=== PATIENT | female | born 1945 | race Hispanic/Latino ===

== ENCOUNTER 2018-05-12 10:45 | Inpatient (IN) | payer MEDICARE ==
--- NOTE | 2018-05-12 11:20 | ED PDOC ---
Arrival/HPI - General Chief Complaint: Shortness Of Breath Time Seen by Provider: 05/12/18 11:02 Historian: Patient, Family - History of Present Illness Narrative History of Present Illness (Text): 05/12/18 11:17 Patient is a 72 yo female past medical history of diabetes, cad, hypertension, presents with son with history of weakness and shortness of breath. Patient reportedly returned from [place] two days ago after complaining of feeling very weak for the past week while she was in [place]. Family states that she arrived two days ago and appeared very weak and appeared to have left leg weakness intermittently. This morning son stated that she was very short of breath and she was brought to the ED. The patient states that she began feeling short of breath while in [place], but it became worse overnight. She denies headache. She denies chest pain. She denies abdominal pain. She denies vomiting. She denies dark or bloody urine or stool. She denies any numbness or weakness to the upper extremities. She denies fevers or chills. She denies falls or syncope. Son states that she has been very unsteady on her feet and has been pale since arriving from [place] two days ago. Son believes she has been noncompliant with her medication. Time/Duration: Prior to Arrival, > week Symptom Onset: Gradual Symptom Course: Worsening Past Medical History - Travel History If Yes, travel location?: [place] - Cardiac Hx Hypertension: Yes - Endocrine/Metabolic Hx Diabetes Mellitus Type 2: Yes - Gastrointestinal Hx Gastroesophageal Reflux: Yes - Psychiatric Hx Anxiety: Yes Hx Substance Use: No - Surgical History Hx Cholecystectomy: Yes Family/Social History Family/Social History: Unknown Family HX Smoking Status: Unknown If Ever Smoked Hx Alcohol Use: No Hx Substance Use: No Allergies/Home Meds Allergies/Adverse Reactions: Allergies No Known Allergies Allergy (Verified 05/12/18 10:54) Home Medications: Home Meds Medication Instructions Recorded Confirmed Unobtainable 05/12/18 05/12/18 Review of Systems - Review of Systems Constitutional: Fatigue Eyes: absent: Vision Changes ENT: absent: Hearing Changes, Sore Throat Respiratory: SOB. absent: Cough, Sputum, Wheezing Cardiovascular: Edema, RAY. absent: Chest Pain, Palpitations, Calf Pain Gastrointestinal: Constipation, Appetite Changes. absent: Abdominal Pain, Diarrhea, Nausea, Vomiting Genitourinary Female: absent: Dysuria, Frequency, Hematuria Musculoskeletal: absent: Back Pain, Neck Pain Skin: absent: Rash Neurological: Dizziness, Gait Changes, Disequilibrium. absent: Headache, Speech Changes, Seizure Endocrine: absent: Diaphoresis, Polyuria Hemo/Lymphatic: absent: Easy Bleeding Psychiatric: absent: Suicidal Ideation Physical Exam Vital Signs Reviewed: Yes Vital Signs Temp Pulse Resp BP Pulse Ox 05/12/18 13:51 98.8 F 120 H 20 129/83 94 L 05/12/18 13:37 119 H 18 127/83 98 05/12/18 13:14 122 H 22 116/81 94 L 05/12/18 13:07 125 H 143/94 H 05/12/18 13:06 156/103 H 05/12/18 12:23 20 05/12/18 12:04 162/98 H 05/12/18 11:22 118 H 20 162/98 H 92 L 05/12/18 10:54 97.8 F 130 H 24 200/120 H 82 L Temperature: Afebrile Blood Pressure: Hypertensive Pulse: Tachycardic Appearance: Positive for: Ill-Appearing Pain Distress: Moderate Mental Status: Positive for: Alert and Oriented X 3 Finger Stick Blood Glucose: 352 - Systems Exam Head: Present: Atraumatic Pupils: Present: PERRL Conjunctiva: No: Injected, Icteric Mouth: Present: Dry Pharnyx: No: ERYTHEMA Nose (Internal): Present: Normal Inspection Neck: Present: Normal Range of Motion, JVD. No: Meningeal Signs, MIDLINE TENDERNESS Respiratory/Chest: Present: Decreased Breath Sounds, Tachypneic Cardiovascular: Present: Murmurs, Tachycardic Abdomen: Present: Distention. No: Tenderness Rectal: No: Gross Blood Back: No: CVA Tenderness Upper Extremity: No: Cyanosis Lower Extremity: Present: Edema. No: CALF TENDERNESS Neurological: Present: Speech Normal, Norm Deep Tendon Reflexes, Memory Normal. No: Motor Func Grossly Intact (generalized weakness to both legs but no drift noted, strength is equal) Skin: Present: Pale Psychiatric: Present: Alert, Oriented x 3 Medical Decision Making ED Course and Treatment: 05/12/18 11:22 Patient on examination is tachycardic, hypetensive, tachypneic. Low oxygen saturations noted patient initiated on nasal cannula oxygen saturations improved to 91%. She denies chest pain or bleeding. She has lower leg edema. She has no pleuritic discomfort. EKG reveals sinus tachycardia rate of 126 with t wave abnormality no recent EKG for comparison. Ddx. nstemi, chf, cad, pneumonia, sepsis, anemia, pulmonary embolism. Given extremely pale appearance will need to exclude active bleeding, consider anticoagulants for ddx of PE or CAD pending results of studies. Treatment plan reviewed with patient and family. At this time no focal weakness, symptoms for several days, not tpa candidate based on initial hx and physical exam. This was reviewed with son. 05/12/18 14:15 CXR consistent with pulmonary edema/chf with pleural effusions. Blood pressure slightly improved from triage BP. She continued to be progressively more tachypneic and hypoxia progressed. ABG obtained and reviewed. Oxygenation increased. Dr. Rivera, cardiology, consulted. Lasix ordered. ICU consulted. Nitroglycerin drip ordered. Patient initiated on Bipap and is tolerating well. On re-exam, more alert, more attentive. Tachycardia slightly improved. Blood pressure improved. Less dyspneic. Will admit to ICU, care turned over to ICU team. Will administer Lovenox. At this time patient not stable for CT angio, CT head. As no neuro deficits will endorse this to admitting team pending re-evaluation. CXR suggestive that CHF is etiology for her dyspnea. - Critical Care Critical Care Minutes: 45 minutes - Lab Interpretations Lab Results: 05/12/18 11:20 05/12/18 11:20 Lab Results 05/12/18 11:35: pCO2 37, pO2 63.0 L, HCO3 21.9, ABG pH 7.38, ABG Total CO2 23.0 , ABG O2 Saturation 94.6 L, ABG Base Excess -2.8 L, ABG Potassium 3.4 L, Sodium 138.0, Chloride 105.0, Glucose 346 H, Lactate 1.3, FiO2 28.0, Arterial Blood Potassium 3.4 L 05/12/18 11:25: Blood Type O POSITIVE, Antibody Screen Negative, BBK History Checked No verified bt 05/12/18 11:20: Sodium 138, Chloride 100, Potassium 4.3, Carbon Dioxide 27, Anion Gap 15, BUN 20, Creatinine 1.0, Est GFR ( Amer) > 60, Est GFR (Non- Af Amer) 54, Random Glucose 362 H*, Calcium 9.1, Magnesium 1.7, Total Bilirubin 0.5, AST 19, ALT 25, Alkaline Phosphatase 171 H, Lactate Dehydrogenase 571, Total Creatine Kinase 78, Troponin I 0.02, Total Protein 6.7, Albumin 3.5, Globulin 3.2, Albumin/Globulin Ratio 1.1 05/12/18 11:20: PT 11.6, INR 1.01, APTT 26.7, D-Dimer, Quantitative 929 H 05/12/18 11:20: WBC 10.6, RBC 5.37, Hgb 13.9, Hct 43.7, MCV 81.4, MCH 25.9, MCHC 31.8, RDW 13.7, Plt Count 260, MPV 11.1 H, Gran % 81.9 H, Lymph % (Auto) 12.8 L, Alexander % (Auto) 3.7, Eos % (Auto) 1.2 L, Baso % (Auto) 0.4, Gran # 8.67 H , Lymph # (Auto) 1.4, Alexander # (Auto) 0.4, Eos # (Auto) 0.1, Baso # (Auto) 0.04 05/12/18 11:20: pO2 39, VBG pH 7.29 L, VBG pCO2 55.0, VBG HCO3 26.4, VBG Total CO2 28.1 H, VBG O2 Sat (Calc) 71.3 H, VBG Base Excess -1.1 L, VBG Potassium 4.1 , Sodium 136.0, Chloride 100.0, Glucose 378 H, Lactate 2.3 H, FiO2 21.0, Venous Blood Potassium 4.1 05/12/18 10:53: POC Glucose (mg/dL) 352 H I have reviewed the lab results: Yes Interpretation: Abnormal lab values - RAD Interpretation Radiology Orders: 05/12/18 11:13 CHEST PORTABLE [RAD] Stat 05/12/18 12:22 ANGIO CHEST PE PROTOCOL [CT] Stat HEAD W/O CONTRAST [CT] Stat 05/12/18 12:26 DUPLEX LOWER EXTRM VEIN BILAT [US] Urgent Endoscopy Specialty Technician: Radiologist - EKG Interpretation EKG Interpretation (Text): 05/12/18 12:28 EKG at 1056 sinus tachycardia rate of 126, t wave abnormality possible lateral ischemia Interpreted by ED Physician: Yes Type: 12 lead EKG - Medication Orders Current Medication Orders: Aspirin (Aspirin Chewable) 81 mg PO DAILY BRIANNE Enoxaparin Sodium (Lovenox) 60 mg SC Q12H [facility]RIANNE PRN Reason: Protocol Last Admin: 05/12/18 13:57 Dose: Famotidine (Pepcid) 20 mg IVP DAILY BRIANNE Furosemide (Lasix) 40 mg IVP BID BRIANNE Nitroglycerin/Dextrose (Nitroglycerin 50 Mg/250 Ml D5w) 50 mg in 250 mls @ 6 mls/hr IV .Q24H PRN; Protocol; 20 MCG/MIN PRN Reason: Titrate per protocol Last Admin: 05/12/18 13:07 Dose: 6 mls/hr eMAR Start Stop Document 05/12/18 13:07 EQ (Rec: 05/12/18 13:07 EQ [id number]) Intravenous Solution Start Date 05/12/18 Start Time 13:07 MAR Pulse and Blood Pressure Document 05/12/18 13:07 EQ (Rec: 05/12/18 13:07 EQ [id number]) Pulse Pulse Rate (60-90 beats/min) 125 Blood Pressure Blood Pressure (100/60-150/90 mm Hg) 143/94 Insulin Human Regular (Humulin R Med) 0 units SC ACHS BRIANNE PRN Reason: Protocol Discontinued Medications Enoxaparin Sodium (Lovenox) 60 mg SC STAT STA PRN Reason: Protocol Stop: 05/12/18 12:50 Last Admin: 05/12/18 13:07 Dose: 60 mg Subcutaneous Administrations Document 05/12/18 13:07 EQ (Rec: 05/12/18 13:07 EQ [id number]) Injection Site MAR Injection Site Left Deltoid Charges for Administration # of Subcutaneous Administrations 1 Furosemide (Lasix) 40 mg IVP ONCE ONE Stop: 05/12/18 11:36 Last Admin: 05/12/18 12:04 Dose: 40 mg MAR Blood Pressure Document 05/12/18 12:04 EQ (Rec: 05/12/18 12:04 EQ [id number]) Blood Pressure Blood Pressure (100/60-150/90 mm Hg) 162/98 IVP Administration Document 05/12/18 12:04 EQ (Rec: 05/12/18 12:04 EQ [id number]) Charges for Administration # of IVP Administrations 1 Furosemide (Lasix) 40 mg IVP DAILY BRIANNE Furosemide (Lasix) 40 mg IVP BID STA Stop: 05/12/18 12:24 Last Admin: 05/12/18 13:06 Dose: 40 mg MAR Blood Pressure Document 05/12/18 13:06 EQ (Rec: 05/12/18 13:07 [id number] Blood Pressure Blood Pressure (100/60-150/90 mm Hg) 156/103 IVP Administration Document 05/12/18 13:06 EQ (Rec: 05/12/18 13:07 [id number]) Charges for Administration # of IVP Administrations 1 Nitroglycerin (Nitro-Bid 2% Oint) 1 ea TOP ONCE STA Stop: 05/12/18 11:36 Last Admin: 05/12/18 12:04 Dose: Nitroglycerin (Nitro-Bid 2% Oint) 1 ea TOP Q6H BRIANNE Last Admin: 05/12/18 13:07 Dose: Nitroglycerin (Nitrostat Sl Tab) 0.4 mg SL STAT STA Stop: 05/12/18 12:56 Last Admin: 05/12/18 13:00 Dose: 0.4 mg Disposition/Present on Arrival - Present on Arrival Any Indicators Present on Arrival: Yes History of DVT/PE: No History of Uncontrolled Diabetes: Yes Urinary Catheter: No History of Decub. Ulcer: No History Surgical Site Infection Following: None - Disposition Have Diagnosis and Disposition been Completed?: Yes Diagnosis: Congestive heart failure, Tachycardia, Hyperglycemia Disposition: HOSPITALIZED Disposition Time: 12:30 Patient Plan: Admission Patient Problems: Current Active Problems Problem Status Onset Congestive heart failure Acute Hyperglycemia Acute Tachycardia Acute Condition: SERIOUS
[2018-05-12 11:35] LABS: VENOUS BLOOD GAS BASE EXCESS -1.1 mmol/L (0.0-2.0); VENOUS BLOOD GAS PO2 39 mm/Hg (30-55); VENOUS BLOOD PH 7.29 (7.32-7.43)
[2018-05-12] MEDS ORDERED: Nitroglycerin 2% Ointment Foilpak UD TOP STA (11:35)
[2018-05-12 11:40] LABS: BASO # 0.04 K/mm3 (0.0-2.0); BASO % 0.4 % (0.0-3.0); EOS # 0.1 (0.0-0.7); EOS % 1.2 % (1.5-5.0); GRAN # 8.67 (1.4-6.5); GRAN % 81.9 % (50.0-68.0); HEMOGLOBIN 13.9 g/dL (12.0-16.0); LYMPH # 1.4 (1.2-3.4); LYMPH % 12.8 % (22.0-35.0); MEAN CELL VOLUME 81.4 fl (80.0-105.0); MEAN CORPUSCULAR HEMOGLOBIN 25.9 pg (25.0-35.0); MEAN CORPUSCULAR HGB CONC 31.8 g/dl (31.0-37.0); MEAN PLATELET VOLUME 11.1 fl (7.0-11.0); MONO # 0.4 (0.1-0.6); MONO % 3.7 % (1.0-6.0); RBC 5.37 10^6/uL (3.5-6.1); RED CELL DISTRIBUTION WIDTH 13.7 % (11.5-14.5); WHITE BLOOD COUNT 10.6 10^3/ul (4.5-11.0)
[2018-05-12 11:42] LABS: ARTERIAL BLOOD GAS HCO3 21.9 mmol/L (21-28); ARTERIAL BLOOD GAS O2 SAT 94.6 % (95-98); ARTERIAL BLOOD GAS PCO2 37 mm/Hg (35-45); ARTERIAL BLOOD GAS PH 7.38 (7.35-7.45)
[2018-05-12 11:56] LABS: TROPONIN I 0.02 ng/mL
[2018-05-12 12:00] LABS: ALB/GLOB RATIO 1.1 (1.1-1.8); ALBUMIN 3.5 g/dL (3.0-4.8); ALT/SGPT 25 U/L (7-56); AST/SGOT 19 U/L (14-36); BLOOD UREA NITROGEN 20 mg/dL (7-21); CALCIUM 9.1 mg/dL (8.4-10.5); GFR NON-AFRICAN AMERICAN 54
[2018-05-12 12:22] LABS: INR 1.01; PARTIAL THROMBOPLASTIN TIME 26.7 Seconds (25.1-36.5); PROTHROMBIN TIME 11.6 SECONDS (9.4-12.5)
[2018-05-12] MEDS ORDERED: Iohexol 350 MG/100 ML VIAL ONE (12:36)
--- NOTE | 2018-05-12 12:44 | RAD ---
Date of service: 05/12/2018 HISTORY: sob COMPARISON: No prior. FINDINGS: LUNGS: Bilateral infiltrates and effusions. PLEURA: No significant pleural effusion identified, no pneumothorax apparent. CARDIOVASCULAR: Cardiomegaly vascular congestion OSSEOUS STRUCTURES: No significant abnormalities. VISUALIZED UPPER ABDOMEN: Normal. OTHER FINDINGS: None. IMPRESSION: Extensive bilateral infiltrates and effusions. Pattern most consistent with pulmonary edema
[2018-05-12] MEDS ORDERED: Nitroglycerin 2% Ointment Foilpak UD TOP SCH (12:45)
[2018-05-12] MEDS ORDERED: Enoxaparin 60 mg Syringe SC STA (12:49)
[2018-05-12] MEDS ORDERED: Nitroglycerin 50mg in D5W 250 ML IV PRN (12:50)
[2018-05-12] MEDS ORDERED: Nitroglycerin 50mg in D5W 50 MG/250 ML BOTTLE IV PRN (12:52)
--- NOTE | 2018-05-12 13:29 | CP.PCM.CON ---
<LesliAlma - Last Filed: 05/12/18 14:28> History of Present Illness - History of Present Illness History of Present Illness: Alma Ballesteros, PGY2, ICU Consult Note for Dr Sherman: CC: shortness of breath for past 2 weeks 72 year old female with PMH CHF, DM, HLD, HTN, came to [facility] for shortness of breath for past 2 weeks. At the time of my exam, patient on bipap, most HPI obtained from son at bedside. Patient had gone to [facility] recently. As per son, patient called from there that she was short of breath, and "not feeling well." Patient then came here, and was having continued SOB in [place] As per son, patient is noncompliant with her diabetes, CHF, CAD medications for past 1.5 years. Yesterday, patient's BP was also high. However, patient refused to come to ED. Today AM, patient was very sob, and therefore decided to come to ED. Reports generalized weakness and right leg weakness for past 3-4 days, deconditioned to walk. Denies fevers, chills, cough, congestion, chest pain, diaphoresis, palpitations, abdominal pain, diarrhea, urinary symptoms. In ED, patient afebrile, hypertensive 200/120, hypoxic SpO2 82% on RA. Labs significant for dimer elevated 929, BNP elevated 5680, troponin 0.02. Patient given nitroglycerin sublingual, lasix 40 mg IVx2, lovenox [address] Rivera at bedside, evaluated patient. ROS limited due to patient's respiratory status. PMH: CHF, HTN, DM, HLD PSH: cholecystectomy NKA FH: Son, CAD with stents SH: Denies smoking, etOH, or drug use. Lives with son and his . Patient stopped taking medications for past 1.5 years. Review of Systems - Review of Systems Systems not reviewed;Unavailable: Other (bipap, respiratory distress) Past Patient History - Past Social History Smoking Status: Unknown If Ever Smoked - CARDIAC Hx Hypertension: Yes - ENDOCRINE/METABOLIC Hx Diabetes Mellitus Type 2: Yes - GASTROINTESTINAL Hx Gastroesophageal Reflux: Yes - PSYCHIATRIC Hx Anxiety: Yes Hx Substance Use: No - SURGICAL HISTORY Hx Cholecystectomy: Yes Meds Allergies/Adverse Reactions: Allergies Allergy/AdvReac Type Severity Reaction Status Date / Time No Known Allergies Allergy Verified 05/12/18 10:54 - Medications Medications: Current Medications Furosemide (Lasix) 40 mg IVP DAILY [facility] Nitroglycerin/Dextrose (Nitroglycerin 50 Mg/250 Ml D5w) 50 mg in 250 mls @ 6 mls/hr IV .Q24H PRN; Protocol; 20 MCG/MIN PRN Reason: Titrate per protocol Last Admin: 05/12/18 13:07 Dose: 6 mls/hr Insulin Human Regular (Humulin R Med) 0 units SC ACHS [facility] PRN Reason: Protocol Nitroglycerin (Nitro-Bid 2% Oint) 1 ea TOP Q6H [facility] Last Admin: 05/12/18 13:07 Dose: Not Given Physical Exam - Constitutional Appears: In Acute Distress, Older Than Stated Age Additional comments: pale appearing female - Head Exam Head Exam: ATRAUMATIC, NORMOCEPHALIC - Eye Exam Eye Exam: EOMI, PERRL. absent: Conjunctival injection, Nystagmus, Scleral icterus Pupil Exam: NORMAL ACCOMODATION, PERRL. absent: Irregular, Miosis, Mydriatic, Unequal - ENT Exam ENT Exam: Mucous Membranes Moist - Neck Exam Neck exam: Positive for: Full Rom - Respiratory Exam Respiratory Exam: absent: Accessory Muscle Use, Rales, Rhonchi, Wheezes Additional comments: bibasilar crackles. on bipap 12/6, R 14 - Cardiovascular Exam Cardiovascular Exam: Tachycardia, +S1, +S2. absent: Systolic Murmur - GI/Abdominal Exam GI & Abdominal Exam: Normal Bowel Sounds, Soft. absent: Distended, Guarding, Mass, Rigid, Tenderness - Extremities Exam Extremities exam: Positive for: calf tenderness, pedal edema (2+ pitting bilaterally) - Back Exam Back exam: NORMAL INSPECTION. absent: CVA tenderness (L), CVA tenderness (R) - Neurological Exam Neurological exam: Alert, Oriented x3 - Psychiatric Exam Psychiatric exam: Anxious - Skin Skin Exam: Dry, Pallor, Warm Results - Vital Signs Recent Vital Signs: Last Vital Signs Temp 97.8 F 05/12/18 10:54 Pulse 125 H 05/12/18 13:07 Resp 20 05/12/18 11:22 BP 143/94 H 05/12/18 13:07 Pulse Ox 92 L 05/12/18 11:22 - Labs Result Diagrams: 05/12/18 11:20 05/12/18 11:20 Labs: Laboratory Results - last 24 hr 05/12/18 05/12/18 05/12/18 10:53 11:20 11:20 WBC 10.6 RBC 5.37 Hgb 13.9 Hct 43.7 MCV 81.4 MCH 25.9 MCHC 31.8 RDW 13.7 Plt Count 260 MPV 11.1 H Gran % 81.9 H Lymph % (Auto) 12.8 L [place] % (Auto) 3.7 Eos % (Auto) 1.2 L Baso % (Auto) 0.4 Gran # 8.67 H Lymph # (Auto) 1.4 [place] # (Auto) 0.4 Eos # (Auto) 0.1 Baso # (Auto) 0.04 PT INR APTT D-Dimer, Quantitative pCO2 pO2 39 HCO3 ABG pH ABG Total CO2 ABG O2 Saturation ABG Base Excess ABG Potassium VBG pH 7.29 L VBG pCO2 55.0 VBG HCO3 26.4 VBG Total CO2 28.1 H VBG O2 Sat (Calc) 71.3 H VBG Base Excess -1.1 L VBG Potassium 4.1 Sodium 136.0 Chloride 100.0 Glucose 378 H Lactate 2.3 H FiO2 21.0 Potassium Carbon Dioxide Anion Gap BUN Creatinine Est GFR ( Amer) Est GFR (Non-Af Amer) POC Glucose (mg/dL) 352 H Random Glucose Calcium Magnesium Total Bilirubin AST ALT Alkaline Phosphatase Lactate Dehydrogenase Total Creatine Kinase Troponin I Total Protein Albumin Globulin Albumin/Globulin Ratio Arterial Blood Potassium Venous Blood Potassium 4.1 Blood Type Antibody Screen BBK History Checked 05/12/18 05/12/18 05/12/18 11:20 11:20 11:25 WBC RBC Hgb Hct MCV MCH MCHC RDW Plt Count MPV Gran % Lymph % (Auto) [place] % (Auto) Eos % (Auto) Baso % (Auto) Gran # Lymph # (Auto) [place] # (Auto) Eos # (Auto) Baso # (Auto) PT 11.6 INR 1.01 APTT 26.7 D-Dimer, Quantitative 929 H pCO2 pO2 HCO3 ABG pH ABG Total CO2 ABG O2 Saturation ABG Base Excess ABG Potassium VBG pH VBG pCO2 VBG HCO3 VBG Total CO2 VBG O2 Sat (Calc) VBG Base Excess VBG Potassium Sodium 138 Chloride 100 Glucose Lactate FiO2 Potassium 4.3 Carbon Dioxide 27 Anion Gap 15 BUN 20 Creatinine 1.0 Est GFR ( Amer) > 60 Est GFR (Non-Af Amer) 54 POC Glucose (mg/dL) Random Glucose 362 H* Calcium 9.1 Magnesium 1.7 Total Bilirubin 0.5 AST 19 ALT 25 Alkaline Phosphatase 171 H Lactate Dehydrogenase 571 Total Creatine Kinase 78 Troponin I 0.02 Total Protein 6.7 Albumin 3.5 Globulin 3.2 Albumin/Globulin Ratio 1.1 Arterial Blood Potassium Venous Blood Potassium Blood Type O POSITIVE Antibody Screen Negative BBK History Checked No verified bt 05/12/18 11:35 WBC RBC Hgb Hct MCV MCH MCHC RDW Plt Count MPV Gran % Lymph % (Auto) [place] % (Auto) Eos % (Auto) Baso % (Auto) Gran # Lymph # (Auto) [place] # (Auto) Eos # (Auto) Baso # (Auto) PT INR APTT D-Dimer, Quantitative pCO2 37 pO2 63.0 L HCO3 21.9 ABG pH 7.38 ABG Total CO2 23.0 ABG O2 Saturation 94.6 L ABG Base Excess -2.8 L ABG Potassium 3.4 L VBG pH VBG pCO2 VBG HCO3 VBG Total CO2 VBG O2 Sat (Calc) VBG Base Excess VBG Potassium Sodium 138.0 Chloride 105.0 Glucose 346 H Lactate 1.3 FiO2 28.0 Potassium Carbon Dioxide Anion Gap BUN Creatinine Est GFR ( Amer) Est GFR (Non-Af Amer) POC Glucose (mg/dL) Random Glucose Calcium Magnesium Total Bilirubin AST ALT Alkaline Phosphatase Lactate Dehydrogenase Total Creatine Kinase Troponin I Total Protein Albumin Globulin Albumin/Globulin Ratio Arterial Blood Potassium 3.4 L Venous Blood Potassium Blood Type Antibody Screen BBK History Checked Assessment & Plan - Assessment and Plan (Free Text) Assessment: 72 year old female with PMH CHF, DM, HLD, HTN, presents for shortness of breath , found to be in hypertensive emergency, CHF exacerbation, hypoxemic respiratory distress: Neuro: AOx4. Right leg weakness for past several days, Motor strength grossly intact on neuro exam, f/u Head CT. Neuro checks, aspiration precautions. Cont to monitor Respiratory: ABG noted: pH 7.38, pCO2 37, HCO3 21.9, pO2 63 on 28% FiO2, noted for hypoxemia likely from underlying CHF exacerbation vs PNA Started on bipap. F/u ABG this afternoon. On Lasix 40 mg IV BID CXR shows extensive b/l infiltrates/effusions likely pulmonary edema. F/u procal, blood culture, urine culture. Consider ID consult. D Dimer elevated 929, f/u CTA. Cardio: Hypertensive in ED: BP 200/120, given nitroglycerin SL in ED. CXR showed extensive b/l pleural effusions Given 40 mg IV Lasix in ED. Dr Rivera at bedside. Started on Lasix 40 mg IV BID, nitro drip for HTN initial trop 0.02, EKG showed sinus tachycardia HR 126. Given Lovenox 60 mg SQ in ED, started on Lovenox 60 mg sq bid. F/u serial trops and EKG. f/u Echocardiogram. GI: NPO. Pepcid. Renal: BUN/Cr 20/1.0. Replace lytes, maintain euvolemia. Monitor for contrast induced nephropathy s/p CT angio. ID: afebrile, no leukocytosis. F/u procal, blood culture, UA, urine culture. CXR showed b/l pleural effusions, may have infiltrates, patient currently denies cough. Monitor Heme: Stable Hgb, plt. Monitor PPX: Pepcid, therapeutic lovenox Case seen and discussed with Dr Sherman. <Mark Sherman - Last Filed: 05/12/18 14:41> Meds - Medications Medications: Current Medications Aspirin (Aspirin Chewable) 81 mg PO DAILY BRIANNE Enoxaparin Sodium (Lovenox) 60 mg SC Q12H BRIANNE PRN Reason: Protocol Last Admin: 05/12/18 13:57 Dose: Not Given Famotidine (Pepcid) 20 mg IVP DAILY BRIANNE Furosemide (Lasix) 40 mg IVP BID BRIANNE Nitroglycerin/Dextrose (Nitroglycerin 50 Mg/250 Ml D5w) 50 mg in 250 mls @ 6 mls/hr IV .Q24H PRN; Protocol; 20 MCG/MIN PRN Reason: Titrate per protocol Last Admin: 05/12/18 13:07 Dose: 6 mls/hr Insulin Human Regular (Humulin R Med) 0 units SC ACHS BRIANNE PRN Reason: Protocol Results - Vital Signs Recent Vital Signs: Last Vital Signs Temp 98.8 F 05/12/18 13:51 Pulse 120 H 05/12/18 13:51 Resp 20 05/12/18 13:51 BP 129/83 05/12/18 13:51 Pulse Ox 94 L 05/12/18 13:51 - Labs Result Diagrams: 05/12/18 11:20 05/12/18 11:20 Labs: Laboratory Results - last 24 hr 05/12/18 13:00 NT-Pro-B Natriuret Pep 5680 H Assessment & Plan - Assessment and Plan (Free Text) Assessment: Patient seen and examined with resident, agree with note with following additions/exceptions: Patient is 72 year old female with PMH CHF, DM, HLD, HTN, hx of non compliance ( off her medications > 1y), presents for shortness of breath, found to be in hypertensive emergency, CHF exacerbation, hypoxemic respiratory distress. Patient in the ER was placed on BIPAP, given Lasix IV, started on Nitro drip. Currently afebrile, SBP improved from 180s to 140s, in NAD, comfortable. Pt's son reports that the patient came back from [facility] on Tue, and she developed SOB 1 week ago. Denies fever, chills, cough, CP. Patients labs, imaging, chart reviewed. CXR c/w pulm edema. Cardiology, Dr Rivera consulted. SOB CAD HTN Urgency Acute decompensated CHF exacerbation Elevated ddimer Sinus Tachycardia Recommend: - supp o2 as needed, duonebs PRN, IS - Panculture, UCx, BCx, UA, check Procal - BP control, IV Nitro drip - Lasix 40mg IV BID - rate control - follow up ECHO - Follow cardiology - CT Angio of Chest, rule out PE - LE duplex - serial cardiac enzymes - GI ppx - DVT ppx, Lovenox - Admit to MICU Critical care time 40 minutes
[2018-05-12] MEDS ORDERED: Enoxaparin 60 mg Syringe SC SCH (13:45)
[2018-05-12 13:57] VITALS: BMI 30.1
[2018-05-12] MEDS ORDERED: Metoprolol Succinate 50 mg XL Tab PO SCH ×2 (15:00→15:03)
[2018-05-12 15:14] LABS: URINE BILIRUBIN NEGATIVE (NEGATIVE); URINE BLOOD SMALL (NEGATIVE); URINE GLUCOSE (UA) >=1000 mg/dL (NEGATIVE); URINE LEUKOCYTE ESTERASE NEGATIVE Leu/uL (NEGATIVE); URINE PROTEIN 100 mg/dL (<30 mg/dL); URINE UROBILINOGEN 0.2 E.U./dL (<1 E.U./dL)
[2018-05-12 15:17] LABS: URINE APPEARANCE CLEAR (CLEAR); URINE COLOR YELLOW (YELLOW)
[2018-05-12 15:20] LABS: URINE BACTERIA FEW (NEG); URINE RBC 0 - 2 /hpf (0-2); URINE WBC 0 - 2 /hpf (0-6)
--- NOTE | 2018-05-12 15:34 | CON ---
DATE: 05/12/2018 CARDIOLOGY CONSULTATION HISTORY: The patient is a 72-year-old woman, who presents with progressive shortness of breath over the past week or two. The patient's symptoms started when she was in [place] and she came back on an airplane. Her past medical history includes diabetes mellitus in which she is noncompliant with medications. There is no previous cardiac history in the past. She denies hypertension, denies previous myocardial infarction. She denies chest pain. SOCIAL HISTORY: The patient does not smoke. REVIEW OF SYSTEMS: Fourteen-point review of systems is reviewed in detail. Progressive dyspnea including dyspnea at rest, pedal edema is noted. No angina. No chest pain. No loss of consciousness. There is swelling in both lower extremities. LABORATORY DATA: Laboratories include an EKG that shows sinus tachycardia with diffuse ST-T flattening. Laboratories include troponin that is negative x1. The glucose is 362. The bicarb is pending. The pulse oximetry is 90 on room air. Hemoglobin is 13.9. IMPRESSION: 1. Acute systolic congestive heart failure. 2. Pedal edema. 3. Diabetes out of control. 4. Hypertension. 5. Dyspnea. PLAN: Given these findings, we will order Lasix 40 IV b.i.d. We will start the patient on heparin or Lovenox. We will obtain a CT scan to rule out a pulmonary embolism. Lei Rivera MD
--- NOTE | 2018-05-12 15:42 | VASCLAB ---
DATE: 05/12/2018 ADDENDUM Preliminary echocardiogram reveals left ventricular hypertrophy with global LV hypokinesis with a dilated left atrium. Ejection fraction could not be obtained due to her marked tachycardia. We will give an additional dosage of Lasix. CT scan is pending as well as Dopplers of the lower extremities. Lei Rivera MD
[2018-05-12 17:25] LABS: ARTERIAL BLOOD GAS O2 CAPACITY 16.4 mL/dl (16-24); ARTERIAL BLOOD GAS O2 CONTENT 16.3 ML/dl (15-23); ARTERIAL BLOOD GAS O2 SAT 99.2 % (95-98); ARTERIAL BLOOD GAS PCO2 45 mm/Hg (35-45); ARTERIAL BLOOD GAS PH 7.37 (7.35-7.45); ARTERIAL BLOOD GAS TCO2 27.4 mmol.L (22-28)
[2018-05-12] MEDS: Insulin Reg-MEDIUM-Coverage SC SCH ×2 (17:39→22:11)
--- NOTE | 2018-05-12 18:14 | US ---
HISTORY: Leg pain and swelling. Evaluate for DVT PHYSICIAN(S): Lei Kirk MD. TECHNIQUE: Duplex sonography and color-flow Doppler with graded compression were used to evaluate the deep venous systems of both lower extremities. FINDINGS: The visualized deep venous systems of both lower extremities are sonographically normal and compressible. Normal wave forms and augmentation are seen. There is no sonographic evidence for deep venous thrombosis in the visualized segments of both lower extremities. IMPRESSION: No sonographic evidence for deep venous thrombosis in the visualized segments of both lower extremities.
[2018-05-12] MEDS ORDERED: Pneumococcal 23-Valent Vaccine IM ONE (18:49)
[2018-05-12] MEDS: Nitroglycerin 2% Ointment Foilpak UD TOP SCH (18:55)
[2018-05-12 19:19] LABS: VENOUS BLOOD GAS BASE EXCESS 1.3 mmol/L (0.0-2.0); VENOUS BLOOD GAS PO2 52 mm/Hg (30-55); VENOUS BLOOD PH 7.37 (7.32-7.43)
--- NOTE | 2018-05-12 21:03 | CARD ---
APPROVED REPORT Date of service: 05/12/2018 EKG Measurement Heart [id number] <Conclusion> Sinus tachycardia T wave abnormality, consider lateral ischemia Abnormal ECG
[2018-05-12] MEDS: Enoxaparin 80 mg Syringe SC SCH (22:59)
--- NOTE | 2018-05-12 23:02 | HP ---
HISTORY OF PRESENT ILLNESS: I was called down to the emergency room to countercheck on her. She is very short of breath. She is 72-year-old white female who came from [place], who was getting sick in [place], they got her back to [facility]. She is extremely short of breath with swollen legs. She has a past medical history of diabetes, CAD, hypertension. Her son is with her. She is very short of breath and swollen. She cannot walk well now because her legs are so heavy. She is very weak and it looks like she is in complete shortness of breath and CHF. She denies any dark or bloody stools or urine. She is very weak. She has a history of diabetes, reflux. She had a cholecystectomy in the past. SOCIAL HISTORY: No smoking, no alcohol, no drugs. ALLERGIES: NO KNOWN DRUG ALLERGIES. MEDICATIONS: They do not have the list of medications with them. REVIEW OF SYSTEMS: No acute vision or hearing changes. She is very tired. There is shortness of breath. No cough, sputum, or wheezing. No edema on the legs or dyspnea on exertion. No chest pain, no palpitations. Has constipation. No abdominal pain, diarrhea, nausea, or vomiting. There are no problems urinating. No back pain or neck pain. No rashes or skin issues. She is dizzy. She cannot weak well. She has dysequilibrium. No sweating. No increase in urination, no easy bleeding. No suicidal thoughts. PHYSICAL EXAMINATION: VITAL SIGNS: She has 97.8 temperature, 130 pulse, 24 respiratory rate with 200/120 blood pressure, and 82% oxygen saturation. GENERAL: She is very ill-appearing, [id number] distress. Alert and oriented x3. HEENT: Head is atraumatic, normocephalic. Extraocular muscles are intact. No erythema to the throat. NECK: Good range of motion. No JVD. LUNGS: Decreased breath sounds bilaterally, poor inspiration from rales when she coughs. HEART: Very tachycardic. ABDOMEN: Soft, nontender, positive bowel sounds. EXTREMITIES: +2-3/4 pitting edema. RECTAL: No gross blood in the rectum in the ER. NEUROLOGIC: Normal speech, but I can tell she is lethargic. Memory is normal. Weak lower extremities from the swelling of both the legs. Alert and oriented x3. LYMPHATICS: Thyroid is midline. No palpable appreciable lymphadenopathy. LABORATORY DATA: Chest x-ray is pending, but I looked at it. The entire chest has both sides wide out. She has 10.6 white count, hemoglobin 13.9, hematocrit 42.7, and platelets are 260. She got 378 glucose. Lactate was high at 2.3. Sodium 138, potassium 4.3. BUN 20, creatinine 1. GFR is 54. Sugar is 362. Calcium is 9.1, magnesium 1.7. Total bili is 0.5, AST is 19, ALT is 25, alk phos 171. Lactate dehydrogenase is 571, total creatinine kinase is 78. Troponin I 0.12. Total protein is 6.7. She will be admitted possibly to the intensive care unit. Awaiting for BNP, I called in Cardiology. She will get IV Lasix. She will be on insulin coverage. I need to get the rest of her medications. I will put her on blood pressure medications. She is here with congestive heart failure, severe; diabetes; hypertension; and weakness. Discussed with the ER doctor. Rick Chisholm DO MTDD
[2018-05-13] MEDS: Nitroglycerin 2% Ointment Foilpak UD TOP SCH ×5 (05:50→23:04)
[2018-05-13 06:15] LABS: HEMOGLOBIN 11.8 g/dL (12.0-16.0); MEAN CORPUSCULAR HEMOGLOBIN 25.2 pg (25.0-35.0); MEAN CORPUSCULAR HGB CONC 31.1 g/dl (31.0-37.0); MEAN PLATELET VOLUME 10.8 fl (7.0-11.0); RBC 4.68 10^6/uL (3.5-6.1); RED CELL DISTRIBUTION WIDTH 13.8 % (11.5-14.5); WHITE BLOOD COUNT 8.3 10^3/ul (4.5-11.0)
[2018-05-13 06:31] LABS: LDL CHOLESTEROL 133 mg/dL (0-129)
[2018-05-13 06:38] LABS: ALB/GLOB RATIO 1.1 (1.1-1.8); ALT/SGPT 21 U/L (7-56); AST/SGOT 21 U/L (14-36); BLOOD UREA NITROGEN 20 mg/dL (7-21); CALCIUM 8.5 mg/dL (8.4-10.5); GFR NON-AFRICAN AMERICAN 54; HDL CHOLESTEROL 30 mg/dL (29-60)
[2018-05-13] MEDS: Insulin Reg-MEDIUM-Coverage SC SCH ×4 (08:30→22:00)
[2018-05-13] MEDS: Enoxaparin 80 mg Syringe SC SCH (09:17)
[2018-05-13] MEDS ORDERED: Heparin25000 units/250ml 1/2NS 25,000 UNITS/250 ML BAG IV PRN (09:42)
--- NOTE | 2018-05-13 09:42 | CT ---
Date of service: 05/12/2018 PROCEDURE: CT Chest with contrast (Pulmonary Angiogram) HISTORY: r/o PE COMPARISON: None available. TECHNIQUE: Axial computed tomography images were obtained of the chest in the pulmonary arterial phase of enhancement. Coronal and sagittal reformatted images were created and reviewed. Intravenous contrast dose: 100 mL Omnipaque 350 Radiation dose: Total exam DLP = 551.74 mGy-cm. This CT exam was performed using one or more of the following dose reduction techniques: Automated exposure control, adjustment of the mA and/or kV according to patient size, and/or use of iterative reconstruction technique. FINDINGS: PULMONARY ARTERIES: Filling defect identified in right upper lobe subsegmental pulmonary artery branch. Additional filling defect seen in right middle lobe subsegmental pulmonary artery branch. No other filling defects are seen elsewhere throughout the pulmonary arterial tree. AORTA: No acute findings. No thoracic aortic aneurysm. LUNGS: Extensive bilateral lower lobe compressive atelectasis. No acute infiltrate. Minimal lingular and right middle lobe subsegmental atelectasis. PLEURAL SPACES: Large bilateral pleural effusion. No pneumothorax. HEART: Normal size. No evidence of RV strain. LYMPH NODES: No lymphadenopathy. BONES, CHEST WALL: Unremarkable. No fracture or destructive lesion OTHER FINDINGS: Unremarkable. IMPRESSION: Several small pulmonary emboli are seen in right upper and middle lobe pulmonary artery branches. No evidence of RV strain. Large bilateral pleural effusion with extensive bilateral lower lobe compressive atelectasis and minimal right middle lobe and lingular subsegmental atelectasis. No additional abnormality. The preliminary findings for this examination were reported by [facility] at 9:54 p.m. on 05/12/2018. There is concurrence of this report with the preliminary findings.
--- NOTE | 2018-05-13 10:12 | CT ---
Date of service: 05/12/2018 PROCEDURE: CT HEAD WITHOUT CONTRAST. HISTORY: history of right leg weakness COMPARISON: None available. TECHNIQUE: Axial computed tomography images were obtained through the head/brain without intravenous contrast. Radiation dose: Total exam DLP = 856.84 mGy-cm. This CT exam was performed using one or more of the following dose reduction techniques: Automated exposure control, adjustment of the mA and/or kV according to patient size, and/or use of iterative reconstruction technique. FINDINGS: HEMORRHAGE: No intracranial hemorrhage. BRAIN: No mass effect or edema. Mild diffuse age-appropriate atrophy. Mild chronic periventricular white matter ischemic change. No evidence of acute infarct. VENTRICLES: Unremarkable. No hydrocephalus. CALVARIUM: Unremarkable. PARANASAL SINUSES: Unremarkable as visualized. No significant inflammatory changes. MASTOID AIR CELLS: Unremarkable as visualized. No inflammatory changes. OTHER FINDINGS: None. IMPRESSION: No intracranial mass, hemorrhage or evidence of acute infarct. Mild age-appropriate atrophy and chronic white matter ischemic change. The preliminary findings for this examination were reported by [facility] at 8:41 p.m. on 05/12/2018. There is concurrence of this report with the preliminary findings.
[2018-05-13] MEDS: Heparin25000 units/250ml 1/2NS 25,000 UNITS/250 ML BAG IV PRN (10:37)
[2018-05-13] MEDS ORDERED: metOLazone 5 MG TAB PO STA (11:19)
--- NOTE | 2018-05-13 12:25 | PN ---
DATE: 05/13/2018 LOCATION: The patient in CCU 129, bed 6. This progress note is being dictated on behalf of Dr. Rivera whom I am covering. REASON FOR FOLLOWUP: Congestive heart failure, bilateral pleural effusion, pulmonary embolism, sinus tachycardia. SUBJECTIVE: The patient lying comfortably in bed without any chest pain. She states shortness of breath is better. Denies palpitation. PHYSICAL EXAMINATION: VITAL SIGNS: Blood pressure 134/79, pulse is about 114 per minute, respirations about 20. The patient is afebrile. HEENT: Head is normocephalic. Eyes: Pupils normal. Conjunctivae normal. NECK: JVP slightly elevated. CARDIOVASCULAR: S1, S2. LUNGS: Marked diminished breath sounds in lower half of both lungs. ABDOMEN: Soft. Bowel sounds normal. EXTREMITIES: No clubbing, no cyanosis. LABORATORY DATA: WBC 8.3, hemoglobin 11.8, hematocrit 37.9, platelet 209. Sodium 138, potassium 3.9, BUN 20, creatinine 1, random sugar 211. AST and ALT normal. Yesterday's first troponin was 0.02, subsequent troponin was 1.07 and 1.37, total protein 5.8, albumin 3, cholesterol 195, LDL 133. Chest CT scan showed several small pulmonary emboli that are seen in the right upper and middle lobe pulmonary artery branches, no evidence of RV strain, large bilateral pleural effusion with extensive bilateral lower lobe compression atelectasis and minimal right middle lobe and lingular subsegmental atelectasis. DIAGNOSES: 1. Acute systolic congestive heart failure. 2. Multiple small pulmonary emboli. 3. Bilateral large pleural effusions. 4. Diabetes mellitus. 5. Hypertension. PLAN: The patient getting aspirin 81 mg daily, starting on heparin drip. The patient on Lasix 40 mg IV b.i.d., atorvastatin 40 daily, nitroglycerin one every 6 hours, Plavix 75 mg daily, promethazine 20 mg daily, lisinopril 5 mg daily. The patient received metoprolol succinate 25 mg p.o. today. The patient has tachycardia, so we will discontinue the succinate and we will put Lopressor 50 p.o. b.i.d. The patient has troponin elevation so that is suggestive of [id number] elevation myocardial infarction. Since the patient has large pleural effusion, we will give Zaroxolyn 5 mg p.o. today to further increase diuresis and we will follow. Fanta Walsh MD
--- NOTE | 2018-05-13 12:46 | CP.CCUPN ---
<Hi [place]a - Last Filed: 05/13/18 12:36> CCU Subjective - Physician Review Subjective (Free Text): 05/13/18 12:36 Hi Mesa DO PGY1 Internal Medicine [employer] - ICU Progress Note Patient was seen and examined at bedside this morning Patient was taken off of bipap last night and observed to be breathing well throughout the night and AM . No respiratory complaints voiced overnight; Still having some SOB and Cough however reports symptoms are much improved. 12 System ROS is otherwise unremarkable at this time. CCU Objective - Vital Signs / Intake & Output Vital Signs (Last 4 hours): Vital Signs Pulse Resp BP Pulse Ox 05/13/18 10:52 98 H 145/89 05/13/18 09:16 108 H 134/79 05/13/18 09:15 134/79 05/13/18 09:10 115 H 46 H 95 05/13/18 09:00 107 H 29 H 134/79 96 05/13/18 08:50 108 H 29 H 95 05/13/18 08:40 109 H 23 95 Intake and Output (Last 8hrs): Intake & Output 05/12/18 05/13/18 05/13/18 22:59 06:59 14:59 Intake Total 116 15 Output Total 1200 1100 Balance -1084 -1085 Weight 79.56 kg 74.843 kg Intake: IV 36 0 Left Antecubital 0 TRIDAL DRIP 36 Oral 80 15 Output: Urine 1200 1100 Urethral (Mooney) 1200 1100 Other: Voiding Method Indwelling Catheter # Bowel Movements 0 - Physical Exam Head: Positive for: Atraumatic Pupils: Positive for: PERRL Conjunctiva: Negative for: Injected, Icteric Mouth: Positive for: Dry Pharnyx: Negative for: ERYTHEMA Nose (Internal): Positive for: Normal Inspection Neck: Positive for: Normal Range of Motion. Negative for: Meningeal Signs, MIDLINE TENDERNESS Respiratory/Chest: Positive for: Decreased Breath Sounds (RML/RLL + LLL ), Other (Minimal crackles mid lung pedroza BL ) Cardiovascular: Positive for: Murmurs, Tachycardic Abdomen: Positive for: Distention (dull to percussion), Normal Bowel Sounds, Other. Negative for: Tenderness, Peritoneal Signs Rectal: Negative for: Gross Blood Back: Negative for: CVA Tenderness Upper Extremity: Negative for: Cyanosis Lower Extremity: Positive for: Edema. Negative for: CALF TENDERNESS Neurological: Positive for: Speech Normal, Norm Deep Tendon Reflexes, Memory Normal. Negative for: Motor Func Grossly Intact (generalized weakness to both legs but no drift noted, strength is equal) Skin: Positive for: Pale Psychiatric: Positive for: Alert, Oriented x 3 - Medications Active Medications: Active Medications Generic Name Dose Route Start Last Admin Trade Name Freq PRN Reason Stop Dose Admin Aspirin 81 mg 05/13/18 14:00 Aspirin Chewable PO DAILY [facility] Atorvastatin Calcium 40 mg 05/12/18 17:00 05/12/18 18:25 Lipitor PO 40 mg DIN BRIANNE Administration Carvedilol 6.25 mg 05/13/18 10:00 05/13/18 10:52 Coreg PO 6.25 mg BID [facility] Administration Clopidogrel Bisulfate 75 mg 05/12/18 15:00 05/13/18 09:16 Plavix PO 75 mg DAILY BRIANNE Administration Famotidine 20 mg 05/12/18 14:15 05/13/18 09:15 Pepcid IVP 20 mg DAILY BRIANNE Administration Furosemide 40 mg 05/12/18 18:00 05/13/18 09:15 Lasix IVP 40 mg BID BRIANNE Administration Heparin Sodium/Sodium Chloride 25,000 units in 250 mls @ 13.472 mls/hr 10:12 05/13/18 10:37 Heparin 86324 Units/250ml 1/2 Normal Saline IV 18 units/kg/hr .[id number] PRN 13.472 mls/hr ADJUST RATE PER PROTOCOL Administration Protocol 18 UNITS/KG/HR Insulin Human Regular 0 units 05/12/18 16:30 05/13/18 08:30 Humulin R Med SC 3 u ACHS [facility] Administration Protocol Lisinopril 5 mg 05/12/18 18:42 05/13/18 09:16 Zestril PO 5 mg DAILY [facility] Administration Nitroglycerin 1 ea 05/12/18 18:50 05/13/18 05:50 Nitro-Bid 2% Oint TOP 1 ea Q6 BRIANNE Administration - Patient Studies Lab Studies: Lab Studies 05/13/18 05/13/18 05/13/18 Range/Units 07:39 05:00 05:00 WBC 8.3 D (4.5-11.0) 10^3/ul RBC 4.68 (3.5-6.1) 10^6/uL Hgb 11.8 L D (12.0-16.0) g/dL Hct 37.9 (36.0-48.0) % MCV 81.0 (80.0-105.0) fl MCH 25.2 (25.0-35.0) pg MCHC 31.1 (31.0-37.0) g/dl RDW 13.8 (11.5-14.5) % Plt Count 209 (120.0-450.0) 10^3/uL MPV 10.8 (7.0-11.0) fl pCO2 (35-45) mm/Hg pO2 (80-100) mm/Hg HCO3 (21-28) mmol/L ABG pH (7.35-7.45) ABG Total CO2 (22-28) mmol.L ABG O2 Saturation (95-98) % ABG O2 Content (15-23) ML/dl ABG Base Excess (-2.0-3.0) mmol/L ABG Hemoglobin (11.7-17.4) g/dL ABG Carboxyhemoglobin (0.5-1.5) % POC ABG HHb (Measured) (0-5) % ABG Methemoglobin (0.0-3.0) % ABG O2 Capacity (16-24) mL/dl VBG pH (7.32-7.43) VBG pCO2 (40-60) VBG HCO3 (21-28) mmol/l VBG Total CO2 (22-28) mmol.L VBG O2 Sat (Calc) (40-65) % VBG Base Excess (0.0-2.0) mmol/L VBG Potassium (3.6-5.2) mmol/L Hgb O2 Saturation (95.0-98.0) % Sodium 138 (132-148) mmol/L Chloride 100 (98-107) mmol/L Glucose (65-105) mg/dl Lactate (0.7-2.1) mmol/L FiO2 % Potassium 3.9 (3.6-5.0) mmol/L Carbon Dioxide 34 H (21-33) mmol/L Anion Gap 8 L (10-20) BUN 20 (7-21) mg/dL Creatinine 1.0 (0.7-1.2) mg/dl Est GFR ( Amer) > 60 Est GFR (Non-Af Amer) 54 POC Glucose (mg/dL) 211 H (65-110) mg/dL Random Glucose 207 H (70-110) mg/dL Calcium 8.5 (8.4-10.5) mg/dL Total Bilirubin 0.4 (0.2-1.3) mg/dL AST 21 (14-36) U/L ALT 21 (7-56) U/L Alkaline Phosphatase 128 H D (38-126) U/L Troponin I ng/mL NT-Pro-B Natriuret Pep (0-450) pg/mL Total Protein 5.8 (5.8-8.3) g/dL Albumin 3.0 (3.0-4.8) g/dL Globulin 2.8 gm/dL Albumin/Globulin Ratio 1.1 (1.1-1.8) Triglycerides 158 (35-160) mg/dL Cholesterol 195 (130-200) mg/dL LDL Cholesterol Direct 133 H (0-129) mg/dL HDL Cholesterol 30 (29-60) mg/dL TSH 3rd Generation (0.46-4.68) mIU/mL Venous Blood Potassium (3.6-5.2) mmol/L Urine Color (YELLOW) Urine Appearance (CLEAR) Urine pH (4.7-8.0) Ur Specific Clymer (1.005-1.035) Urine Protein (<30 mg/dL) mg/dL Urine Glucose (UA) (NEGATIVE) mg/dL Urine Ketones (NEGATIVE) mg/dL Urine Blood (NEGATIVE) Urine Nitrate (NEGATIVE) Urine Bilirubin (NEGATIVE) Urine Urobilinogen (<1 E.U./dL) E.U./dL Ur Leukocyte Esterase (NEGATIVE) Preston/uL Urine RBC (0-2) /hpf Urine WBC (0-6) /hpf Urine Bacteria (NEG) Blood Type Confirm 05/12/18 05/12/18 05/12/18 Range/Units 23:30 21:13 19:13 WBC (4.5-11.0) 10^3/ul RBC (3.5-6.1) 10^6/uL Hgb (12.0-16.0) g/dL Hct (36.0-48.0) % MCV (80.0-105.0) fl MCH (25.0-35.0) pg MCHC (31.0-37.0) g/dl RDW (11.5-14.5) % Plt Count (120.0-450.0) 10^3/uL MPV (7.0-11.0) fl pCO2 (35-45) mm/Hg pO2 52 (80-100) mm/Hg HCO3 (21-28) mmol/L ABG pH (7.35-7.45) ABG Total CO2 (22-28) mmol.L ABG O2 Saturation (95-98) % ABG O2 Content (15-23) ML/dl ABG Base Excess (-2.0-3.0) mmol/L ABG Hemoglobin (11.7-17.4) g/dL ABG Carboxyhemoglobin (0.5-1.5) % POC ABG HHb (Measured) (0-5) % ABG Methemoglobin (0.0-3.0) % ABG O2 Capacity (16-24) mL/dl VBG pH 7.37 (7.32-7.43) VBG pCO2 47.0 (40-60) VBG HCO3 27.2 (21-28) mmol/l VBG Total CO2 28.6 H (22-28) mmol.L VBG O2 Sat (Calc) 89.8 H (40-65) % VBG Base Excess 1.3 (0.0-2.0) mmol/L VBG Potassium 4.0 (3.6-5.2) mmol/L Hgb O2 Saturation (95.0-98.0) % Sodium 137.0 (132-148) mmol/L Chloride 101.0 (98-107) mmol/L Glucose 387 H (65-105) mg/dl Lactate 1.9 (0.7-2.1) mmol/L FiO2 21.0 % Potassium (3.6-5.0) mmol/L Carbon Dioxide (21-33) mmol/L Anion Gap (10-20) BUN (7-21) mg/dL Creatinine (0.7-1.2) mg/dl Est GFR ( Amer) Est GFR (Non-Af Amer) POC Glucose (mg/dL) 285 H (65-110) mg/dL Random Glucose (70-110) mg/dL Calcium (8.4-10.5) mg/dL Total Bilirubin (0.2-1.3) mg/dL AST (14-36) U/L ALT (7-56) U/L Alkaline Phosphatase (38-126) U/L Troponin I 1.37 H* D ng/mL NT-Pro-B Natriuret Pep (0-450) pg/mL Total Protein (5.8-8.3) g/dL Albumin (3.0-4.8) g/dL Globulin gm/dL Albumin/Globulin Ratio (1.1-1.8) Triglycerides (35-160) mg/dL Cholesterol (130-200) mg/dL LDL Cholesterol Direct (0-129) mg/dL HDL Cholesterol (29-60) mg/dL TSH 3rd Generation (0.46-4.68) mIU/mL Venous Blood Potassium 4.0 (3.6-5.2) mmol/L Urine Color (YELLOW) Urine Appearance (CLEAR) Urine pH (4.7-8.0) Ur Specific Clymer (1.005-1.035) Urine Protein (<30 mg/dL) mg/dL Urine Glucose (UA) (NEGATIVE) mg/dL Urine Ketones (NEGATIVE) mg/dL Urine Blood (NEGATIVE) Urine Nitrate (NEGATIVE) Urine Bilirubin (NEGATIVE) Urine Urobilinogen (<1 E.U./dL) E.U./dL Ur Leukocyte Esterase (NEGATIVE) Preston/uL Urine RBC (0-2) /hpf Urine WBC (0-6) /hpf Urine Bacteria (NEG) Blood Type Confirm 05/12/18 05/12/18 05/12/18 Range/Units 19:13 19:13 17:15 WBC (4.5-11.0) 10^3/ul RBC (3.5-6.1) 10^6/uL Hgb (12.0-16.0) g/dL Hct (36.0-48.0) % MCV (80.0-105.0) fl MCH (25.0-35.0) pg MCHC (31.0-37.0) g/dl RDW (11.5-14.5) % Plt Count (120.0-450.0) 10^3/uL MPV (7.0-11.0) fl pCO2 45 (35-45) mm/Hg pO2 99.0 (80-100) mm/Hg HCO3 26.0 (21-28) mmol/L ABG pH 7.37 (7.35-7.45) ABG Total CO2 27.4 (22-28) mmol.L ABG O2 Saturation 99.2 H (95-98) % ABG O2 Content 16.3 (15-23) ML/dl ABG Base Excess 0.4 (-2.0-3.0) mmol/L ABG Hemoglobin 12.0 (11.7-17.4) g/dL ABG Carboxyhemoglobin 2.0 H (0.5-1.5) % POC ABG HHb (Measured) 0.8 (0-5) % ABG Methemoglobin 1.1 (0.0-3.0) % ABG O2 Capacity 16.4 (16-24) mL/dl VBG pH (7.32-7.43) VBG pCO2 (40-60) VBG HCO3 (21-28) mmol/l VBG Total CO2 (22-28) mmol.L VBG O2 Sat (Calc) (40-65) % VBG Base Excess (0.0-2.0) mmol/L VBG Potassium (3.6-5.2) mmol/L Hgb O2 Saturation 96.1 (95.0-98.0) % Sodium (132-148) mmol/L Chloride (98-107) mmol/L Glucose (65-105) mg/dl Lactate (0.7-2.1) mmol/L FiO2 40.0 % Potassium (3.6-5.0) mmol/L Carbon Dioxide (21-33) mmol/L Anion Gap (10-20) BUN (7-21) mg/dL Creatinine (0.7-1.2) mg/dl Est GFR ( Amer) Est GFR (Non-Af Amer) POC Glucose (mg/dL) (65-110) mg/dL Random Glucose (70-110) mg/dL Calcium (8.4-10.5) mg/dL Total Bilirubin (0.2-1.3) mg/dL AST (14-36) U/L ALT (7-56) U/L Alkaline Phosphatase (38-126) U/L Troponin I 1.07 H* D ng/mL NT-Pro-B Natriuret Pep (0-450) pg/mL Total Protein (5.8-8.3) g/dL Albumin (3.0-4.8) g/dL Globulin gm/dL Albumin/Globulin Ratio (1.1-1.8) Triglycerides (35-160) mg/dL Cholesterol (130-200) mg/dL LDL Cholesterol Direct (0-129) mg/dL HDL Cholesterol (29-60) mg/dL TSH 3rd Generation 4.72 H (0.46-4.68) mIU/mL Venous Blood Potassium (3.6-5.2) mmol/L Urine Color (YELLOW) Urine Appearance (CLEAR) Urine pH (4.7-8.0) Ur Specific Clymer (1.005-1.035) Urine Protein (<30 mg/dL) mg/dL Urine Glucose (UA) (NEGATIVE) mg/dL Urine Ketones (NEGATIVE) mg/dL Urine Blood (NEGATIVE) Urine Nitrate (NEGATIVE) Urine Bilirubin (NEGATIVE) Urine Urobilinogen (<1 E.U./dL) E.U./dL Ur Leukocyte Esterase (NEGATIVE) Preston/uL Urine RBC (0-2) /hpf Urine WBC (0-6) /hpf Urine Bacteria (NEG) Blood Type Confirm 05/12/18 05/12/18 05/12/18 Range/Units 16:45 15:00 13:45 WBC (4.5-11.0) 10^3/ul RBC (3.5-6.1) 10^6/uL Hgb (12.0-16.0) g/dL Hct (36.0-48.0) % MCV (80.0-105.0) fl MCH (25.0-35.0) pg MCHC (31.0-37.0) g/dl RDW (11.5-14.5) % Plt Count (120.0-450.0) 10^3/uL MPV (7.0-11.0) fl pCO2 (35-45) mm/Hg pO2 (80-100) mm/Hg HCO3 (21-28) mmol/L ABG pH (7.35-7.45) ABG Total CO2 (22-28) mmol.L ABG O2 Saturation (95-98) % ABG O2 Content (15-23) ML/dl ABG Base Excess (-2.0-3.0) mmol/L ABG Hemoglobin (11.7-17.4) g/dL ABG Carboxyhemoglobin (0.5-1.5) % POC ABG HHb (Measured) (0-5) % ABG Methemoglobin (0.0-3.0) % ABG O2 Capacity (16-24) mL/dl VBG pH (7.32-7.43) VBG pCO2 (40-60) VBG HCO3 (21-28) mmol/l VBG Total CO2 (22-28) mmol.L VBG O2 Sat (Calc) (40-65) % VBG Base Excess (0.0-2.0) mmol/L VBG Potassium (3.6-5.2) mmol/L Hgb O2 Saturation (95.0-98.0) % Sodium (132-148) mmol/L Chloride (98-107) mmol/L Glucose (65-105) mg/dl Lactate (0.7-2.1) mmol/L FiO2 % Potassium (3.6-5.0) mmol/L Carbon Dioxide (21-33) mmol/L Anion Gap (10-20) BUN (7-21) mg/dL Creatinine (0.7-1.2) mg/dl Est GFR ( Amer) Est GFR (Non-Af Amer) POC Glucose (mg/dL) 323 H (65-110) mg/dL Random Glucose (70-110) mg/dL Calcium (8.4-10.5) mg/dL Total Bilirubin (0.2-1.3) mg/dL AST (14-36) U/L ALT (7-56) U/L Alkaline Phosphatase (38-126) U/L Troponin I ng/mL NT-Pro-B Natriuret Pep (0-450) pg/mL Total Protein (5.8-8.3) g/dL Albumin (3.0-4.8) g/dL Globulin gm/dL Albumin/Globulin Ratio (1.1-1.8) Triglycerides (35-160) mg/dL Cholesterol (130-200) mg/dL LDL Cholesterol Direct (0-129) mg/dL HDL Cholesterol (29-60) mg/dL TSH 3rd Generation (0.46-4.68) mIU/mL Venous Blood Potassium (3.6-5.2) mmol/L Urine Color Yellow (YELLOW) Urine Appearance Clear (CLEAR) Urine pH 6.0 (4.7-8.0) Ur Specific Clymer 1.025 (1.005-1.035) Urine Protein 100 H (<30 mg/dL) mg/dL Urine Glucose (UA) >=1000 (NEGATIVE) mg/dL Urine Ketones 15 H (NEGATIVE) mg/dL Urine Blood Small H (NEGATIVE) Urine Nitrate Negative (NEGATIVE) Urine Bilirubin Negative (NEGATIVE) Urine Urobilinogen 0.2 (<1 E.U./dL) E.U./dL Ur Leukocyte Esterase Negative (NEGATIVE) Preston/uL Urine RBC 0 - 2 (0-2) /hpf Urine WBC 0 - 2 (0-6) /hpf Urine Bacteria Few (NEG) Blood Type Confirm O POSITIVE 05/12/18 Range/Units 13:00 WBC (4.5-11.0) 10^3/ul RBC (3.5-6.1) 10^6/uL Hgb (12.0-16.0) g/dL Hct (36.0-48.0) % MCV (80.0-105.0) fl MCH (25.0-35.0) pg MCHC (31.0-37.0) g/dl RDW (11.5-14.5) % Plt Count (120.0-450.0) 10^3/uL MPV (7.0-11.0) fl pCO2 (35-45) mm/Hg pO2 (80-100) mm/Hg HCO3 (21-28) mmol/L ABG pH (7.35-7.45) ABG Total CO2 (22-28) mmol.L ABG O2 Saturation (95-98) % ABG O2 Content (15-23) ML/dl ABG Base Excess (-2.0-3.0) mmol/L ABG Hemoglobin (11.7-17.4) g/dL ABG Carboxyhemoglobin (0.5-1.5) % POC ABG HHb (Measured) (0-5) % ABG Methemoglobin (0.0-3.0) % ABG O2 Capacity (16-24) mL/dl VBG pH (7.32-7.43) VBG pCO2 (40-60) VBG HCO3 (21-28) mmol/l VBG Total CO2 (22-28) mmol.L VBG O2 Sat (Calc) (40-65) % VBG Base Excess (0.0-2.0) mmol/L VBG Potassium (3.6-5.2) mmol/L Hgb O2 Saturation (95.0-98.0) % Sodium (132-148) mmol/L Chloride (98-107) mmol/L Glucose (65-105) mg/dl Lactate (0.7-2.1) mmol/L FiO2 % Potassium (3.6-5.0) mmol/L Carbon Dioxide (21-33) mmol/L Anion Gap (10-20) BUN (7-21) mg/dL Creatinine (0.7-1.2) mg/dl Est GFR ( Amer) Est GFR (Non-Af Amer) POC Glucose (mg/dL) (65-110) mg/dL Random Glucose (70-110) mg/dL Calcium (8.4-10.5) mg/dL Total Bilirubin (0.2-1.3) mg/dL AST (14-36) U/L ALT (7-56) U/L Alkaline Phosphatase (38-126) U/L Troponin I ng/mL NT-Pro-B Natriuret Pep 5680 H (0-450) pg/mL Total Protein (5.8-8.3) g/dL Albumin (3.0-4.8) g/dL Globulin gm/dL Albumin/Globulin Ratio (1.1-1.8) Triglycerides (35-160) mg/dL Cholesterol (130-200) mg/dL LDL Cholesterol Direct (0-129) mg/dL HDL Cholesterol (29-60) mg/dL TSH 3rd Generation (0.46-4.68) mIU/mL Venous Blood Potassium (3.6-5.2) mmol/L Urine Color (YELLOW) Urine Appearance (CLEAR) Urine pH (4.7-8.0) Ur Specific [place]mer (1.005-1.035) Urine Protein (<30 mg/dL) mg/dL Urine Glucose (UA) (NEGATIVE) mg/dL Urine Ketones (NEGATIVE) mg/dL Urine Blood (NEGATIVE) Urine Nitrate (NEGATIVE) Urine Bilirubin (NEGATIVE) Urine Urobilinogen (<1 E.U./dL) E.U./dL Ur Leukocyte Esterase (NEGATIVE) Preston/uL Urine RBC (0-2) /hpf Urine WBC (0-6) /hpf Urine Bacteria (NEG) Blood Type Confirm Laboratory Results - last 24 hr 05/12/18 05/12/18 05/12/18 13:00 13:45 15:00 WBC RBC Hgb Hct MCV MCH MCHC RDW Plt Count MPV pCO2 pO2 HCO3 ABG pH ABG Total CO2 ABG O2 Saturation ABG O2 Content ABG Base Excess ABG Hemoglobin ABG Carboxyhemoglobin POC ABG HHb (Measured) ABG Methemoglobin ABG O2 Capacity VBG pH VBG pCO2 VBG HCO3 VBG Total CO2 VBG O2 Sat (Calc) VBG Base Excess VBG Potassium Hgb O2 Saturation Sodium Chloride Glucose Lactate FiO2 Potassium Carbon Dioxide Anion Gap BUN Creatinine Est GFR ( Amer) Est GFR (Non-Af Amer) POC Glucose (mg/dL) Random Glucose Calcium Total Bilirubin AST ALT Alkaline Phosphatase Troponin I NT-Pro-B Natriuret Pep 5680 H Total Protein Albumin Globulin Albumin/Globulin Ratio Triglycerides Cholesterol LDL Cholesterol Direct HDL Cholesterol TSH 3rd Generation Venous Blood Potassium Urine Color Yellow Urine Appearance Clear Urine pH 6.0 Ur Specific Clymer 1.025 Urine Protein 100 H Urine Glucose (UA) >=1000 Urine Ketones 15 H Urine Blood Small H Urine Nitrate Negative Urine Bilirubin Negative Urine Urobilinogen 0.2 Ur Leukocyte Esterase Negative Urine RBC 0 - 2 Urine WBC 0 - 2 Urine Bacteria Few Blood Type Confirm O POSITIVE 05/12/18 05/12/18 05/12/18 16:45 17:15 19:13 WBC RBC Hgb Hct MCV MCH MCHC RDW Plt Count MPV pCO2 45 pO2 99.0 HCO3 26.0 ABG pH 7.37 ABG Total CO2 27.4 ABG O2 Saturation 99.2 H ABG O2 Content 16.3 ABG Base Excess 0.4 ABG Hemoglobin 12.0 ABG Carboxyhemoglobin 2.0 H POC ABG HHb (Measured) 0.8 ABG Methemoglobin 1.1 ABG O2 Capacity 16.4 VBG pH VBG pCO2 VBG HCO3 VBG Total CO2 VBG O2 Sat (Calc) VBG Base Excess VBG Potassium Hgb O2 Saturation 96.1 Sodium Chloride Glucose Lactate FiO2 40.0 Potassium Carbon Dioxide Anion Gap BUN Creatinine Est GFR ( Amer) Est GFR (Non-Af Amer) POC Glucose (mg/dL) 323 H Random Glucose Calcium Total Bilirubin AST ALT Alkaline Phosphatase Troponin I NT-Pro-B Natriuret Pep Total Protein Albumin Globulin Albumin/Globulin Ratio Triglycerides Cholesterol LDL Cholesterol Direct HDL Cholesterol TSH 3rd Generation 4.72 H Venous Blood Potassium Urine Color Urine Appearance Urine pH Ur Specific [place] Urine Protein Urine Glucose (UA) Urine Ketones Urine Blood Urine Nitrate Urine Bilirubin Urine Urobilinogen Ur Leukocyte Esterase Urine RBC Urine WBC Urine Bacteria Blood Type Confirm 05/12/18 05/12/18 05/12/18 19:13 19:13 21:13 WBC RBC Hgb Hct MCV MCH MCHC RDW Plt Count MPV pCO2 pO2 52 HCO3 ABG pH ABG Total CO2 ABG O2 Saturation ABG O2 Content ABG Base Excess ABG Hemoglobin ABG Carboxyhemoglobin POC ABG HHb (Measured) ABG Methemoglobin ABG O2 Capacity VBG pH 7.37 VBG pCO2 47.0 VBG HCO3 27.2 VBG Total CO2 28.6 H VBG O2 Sat (Calc) 89.8 H VBG Base Excess 1.3 VBG Potassium 4.0 Hgb O2 Saturation Sodium 137.0 Chloride 101.0 Glucose 387 H Lactate 1.9 FiO2 21.0 Potassium Carbon Dioxide Anion Gap BUN Creatinine Est GFR ( Amer) Est GFR (Non-Af Amer) POC Glucose (mg/dL) 285 H Random Glucose Calcium Total Bilirubin AST ALT Alkaline Phosphatase Troponin I 1.07 H* D NT-Pro-B Natriuret Pep Total Protein Albumin Globulin Albumin/Globulin Ratio Triglycerides Cholesterol LDL Cholesterol Direct HDL Cholesterol TSH 3rd Generation Venous Blood Potassium 4.0 Urine Color Urine Appearance Urine pH Ur Specific [place] Urine Protein Urine Glucose (UA) Urine Ketones Urine Blood Urine Nitrate Urine Bilirubin Urine Urobilinogen Ur Leukocyte Esterase Urine RBC Urine WBC Urine Bacteria Blood Type Confirm 05/12/18 05/13/18 05/13/18 23:30 05:00 05:00 WBC 8.3 D RBC 4.68 Hgb 11.8 L D Hct 37.9 MCV 81.0 MCH 25.2 MCHC 31.1 RDW 13.8 Plt Count 209 MPV 10.8 pCO2 pO2 HCO3 ABG pH ABG Total CO2 ABG O2 Saturation ABG O2 Content ABG Base Excess ABG Hemoglobin ABG Carboxyhemoglobin POC ABG HHb (Measured) ABG Methemoglobin ABG O2 Capacity VBG pH VBG pCO2 VBG HCO3 VBG Total CO2 VBG O2 Sat (Calc) VBG Base Excess VBG Potassium Hgb O2 Saturation Sodium 138 Chloride 100 Glucose Lactate FiO2 Potassium 3.9 Carbon Dioxide 34 H Anion Gap 8 L BUN 20 Creatinine 1.0 Est GFR ( Amer) > 60 Est GFR (Non-Af Amer) 54 POC Glucose (mg/dL) Random Glucose 207 H Calcium 8.5 Total Bilirubin 0.4 AST 21 ALT 21 Alkaline Phosphatase 128 H D Troponin I 1.37 H* D NT-Pro-B Natriuret Pep Total Protein 5.8 Albumin 3.0 Globulin 2.8 Albumin/Globulin Ratio 1.1 Triglycerides 158 Cholesterol 195 LDL Cholesterol Direct 133 H HDL Cholesterol 30 TSH 3rd Generation Venous Blood Potassium Urine Color Urine Appearance Urine pH Ur Specific [place] Urine Protein Urine Glucose (UA) Urine Ketones Urine Blood Urine Nitrate Urine Bilirubin Urine Urobilinogen Ur Leukocyte Esterase Urine RBC Urine WBC Urine Bacteria Blood Type Confirm 05/13/18 07:39 WBC RBC Hgb Hct MCV MCH MCHC RDW Plt Count MPV pCO2 pO2 HCO3 ABG pH ABG Total CO2 ABG O2 Saturation ABG O2 Content ABG Base Excess ABG Hemoglobin ABG Carboxyhemoglobin POC ABG HHb (Measured) ABG Methemoglobin ABG O2 Capacity VBG pH VBG pCO2 VBG HCO3 VBG Total CO2 VBG O2 Sat (Calc) VBG Base Excess VBG Potassium Hgb O2 Saturation Sodium Chloride Glucose Lactate FiO2 Potassium Carbon Dioxide Anion Gap BUN Creatinine Est GFR ( Amer) Est GFR (Non-Af Amer) POC Glucose (mg/dL) 211 H Random Glucose Calcium Total Bilirubin AST ALT Alkaline Phosphatase Troponin I NT-Pro-B Natriuret Pep Total Protein Albumin Globulin Albumin/Globulin Ratio Triglycerides Cholesterol LDL Cholesterol Direct HDL Cholesterol TSH 3rd Generation Venous Blood Potassium Urine Color Urine Appearance Urine pH Ur Specific Clymer Urine Protein Urine Glucose (UA) Urine Ketones Urine Blood Urine Nitrate Urine Bilirubin Urine Urobilinogen Ur Leukocyte Esterase Urine RBC Urine WBC Urine Bacteria Blood Type Confirm EKG/Cardiology Studies: Cardiology / EKG Studies 05/12/18 17:00 EKG [ELECTROCARDIOGRAM] Routine Comment: Reason For Exam: SOB Fingerstick Blood Sugar Results: 211 Review of Systems - Review of Systems All systems: reviewed and no additional remarkable complaints except Review of Systems: as per HPI Critical Care Progress Note - Nutrition Nutrition: Nutrition Category Date Time Status Heart Healthy Diet [DIET] Diets 05/12/18 Dinner Active Assessment/Plan - Assessment and Plan (Free Text) Assessment: 72 year old female with PMH CHF, DM, HLD, HTN, presents for shortness of breath ; Patient admitted to ICU for management and monitoring of hypertensive emergency, CHF exacerbation, hypoxemic respiratory distress. Neuro: AAO3 Moving extremities past midline No focal deficit appreciated CT Head negative for acute changes Reorient as necessary Cardio: Normotensive ON on nitro drip Receiving nitro paste Q6 DC'd tridil this AM; Normotensive Started Coreg 6.25 BID CHF 2300ml Output / 24H C/w Lasix 40 BID C/w Lisinopril 5mg QD Hx CAD C/w ASA + Plavix Elevated trop ML 2/2 PE EKG - no ischemic changes; sinus tach ECHO read pending Maintain Map >65 Pulm: Initial ABG Hypoxic; Repeated ABG 05/12 PM Much improved on bipap Bipap DC'd last night; patient tolerated well overnight no resp complaints Satting well on NC; Will titrate O2 accordingly CTA Chest showed PE; BL Pleural effusion Initially on lovenox 80 BID; Started 6000u heparin bolus followed by drip O2 PRN Maintain Sat >95% GI: Constipated x2 days Started colace Pepcid /Nephro: BUN/Cr wnl 2300ml urine out put / 24H Continue monitoring Aim for euvolemia ID: Afebrile No Leukocytosis Procal pending Skin: Fungal rash; Nystatin topical Wound care consulted PPX: Pepcid, Heparin drip Patient seen, examined, and discussed w/ attending physician Dr. Lane Mesa DO PGY1 Internal Medicine [employer] - Date & Time Date: 05/13/18 Time: 13:46 <Mark Sherman - Last Filed: 05/13/18 13:55> CCU Objective - Vital Signs / Intake & Output Vital Signs (Last 4 hours): Vital Signs Pulse BP 05/13/18 10:52 98 H 145/89 Intake and Output (Last 8hrs): Intake & Output 05/12/18 05/13/18 05/13/18 22:59 06:59 14:59 Intake Total 116 15 Output Total 1200 1100 Balance -1084 -1085 Weight 175 lb 6.4 oz 165 lb Intake: IV 36 0 Left Antecubital 0 TRIDAL DRIP 36 Oral 80 15 Output: Urine 1200 1100 Urethral (Mooney) 1200 1100 Other: Voiding Method Indwelling Catheter # Bowel Movements 0 - Medications Active Medications: Active Medications Generic Name Dose Route Start Last Admin Trade Name Freq PRN Reason Stop Dose Admin Aspirin 81 mg 05/13/18 14:00 Aspirin Chewable PO DAILY [facility] Atorvastatin Calcium 40 mg 05/12/18 17:00 05/12/18 18:25 Lipitor PO 40 mg DIN BRIANNE Administration Carvedilol 6.25 mg 05/13/18 10:00 05/13/18 10:52 Coreg PO 6.25 mg BID [facility] Administration Clopidogrel Bisulfate 75 mg 05/12/18 15:00 05/13/18 09:16 Plavix PO 75 mg DAILY BRIANNE Administration Docusate Sodium 100 mg 05/13/18 14:00 Colace Liquid PO TID BRIANNE Famotidine 20 mg 05/12/18 14:15 05/13/18 09:15 Pepcid IVP 20 mg DAILY [facility] Administration Furosemide 40 mg 05/12/18 18:00 05/13/18 09:15 Lasix IVP 40 mg BID BRIANNE Administration Heparin Sodium/Sodium Chloride 25,000 units in 250 mls @ 13.472 mls/hr 10:12 05/13/18 10:37 Heparin 04688 Units/250ml 1/2 Normal Saline IV 18 units/kg/hr .[id number] PRN 13.472 mls/hr ADJUST RATE PER PROTOCOL Administration Protocol 18 UNITS/KG/HR Insulin Human Regular 0 units 05/12/18 16:30 05/13/18 08:30 Humulin R Med SC 3 u ACHS BRIANNE Administration Protocol Lisinopril 5 mg 05/12/18 18:42 05/13/18 09:16 Zestril PO 5 mg DAILY [facility] Administration Nitroglycerin 1 ea 05/12/18 18:50 05/13/18 05:50 Nitro-Bid 2% Oint TOP 1 ea Q6 BRIANNE Administration Nystatin/Triamcinolone Acetonide 0 gm 05/13/18 18:00 Nystatin/Triamcinolone Ointment TOP BID [facility] - Patient Studies Lab Studies: Lab Studies 05/13/18 05/13/18 05/13/18 Range/Units 07:39 05:00 05:00 WBC 8.3 D (4.5-11.0) 10^3/ul RBC 4.68 (3.5-6.1) 10^6/uL Hgb 11.8 L D (12.0-16.0) g/dL Hct 37.9 (36.0-48.0) % MCV 81.0 (80.0-105.0) fl MCH 25.2 (25.0-35.0) pg MCHC 31.1 (31.0-37.0) g/dl RDW 13.8 (11.5-14.5) % Plt Count 209 (120.0-450.0) 10^3/uL MPV 10.8 (7.0-11.0) fl pCO2 (35-45) mm/Hg pO2 (80-100) mm/Hg HCO3 (21-28) mmol/L ABG pH (7.35-7.45) ABG Total CO2 (22-28) mmol.L ABG O2 Saturation (95-98) % ABG O2 Content (15-23) ML/dl ABG Base Excess (-2.0-3.0) mmol/L ABG Hemoglobin (11.7-17.4) g/dL ABG Carboxyhemoglobin (0.5-1.5) % POC ABG HHb (Measured) (0-5) % ABG Methemoglobin (0.0-3.0) % ABG O2 Capacity (16-24) mL/dl VBG pH (7.32-7.43) VBG pCO2 (40-60) VBG HCO3 (21-28) mmol/l VBG Total CO2 (22-28) mmol.L VBG O2 Sat (Calc) (40-65) % VBG Base Excess (0.0-2.0) mmol/L VBG Potassium (3.6-5.2) mmol/L Hgb O2 Saturation (95.0-98.0) % Sodium 138 (132-148) mmol/L Chloride 100 (98-107) mmol/L Glucose (65-105) mg/dl Lactate (0.7-2.1) mmol/L FiO2 % Potassium 3.9 (3.6-5.0) mmol/L Carbon Dioxide 34 H (21-33) mmol/L Anion Gap 8 L (10-20) BUN 20 (7-21) mg/dL Creatinine 1.0 (0.7-1.2) mg/dl Est GFR ( Amer) > 60 Est GFR (Non-Af Amer) 54 POC Glucose (mg/dL) 211 H (65-110) mg/dL Random Glucose 207 H (70-110) mg/dL Calcium 8.5 (8.4-10.5) mg/dL Total Bilirubin 0.4 (0.2-1.3) mg/dL AST 21 (14-36) U/L ALT 21 (7-56) U/L Alkaline Phosphatase 128 H D (38-126) U/L Troponin I ng/mL Total Protein 5.8 (5.8-8.3) g/dL Albumin 3.0 (3.0-4.8) g/dL Globulin 2.8 gm/dL Albumin/Globulin Ratio 1.1 (1.1-1.8) Triglycerides 158 (35-160) mg/dL Cholesterol 195 (130-200) mg/dL LDL Cholesterol Direct 133 H (0-129) mg/dL HDL Cholesterol 30 (29-60) mg/dL TSH 3rd Generation (0.46-4.68) mIU/mL Venous Blood Potassium (3.6-5.2) mmol/L Urine Color (YELLOW) Urine Appearance (CLEAR) Urine pH (4.7-8.0) Ur Specific Clymer (1.005-1.035) Urine Protein (<30 mg/dL) mg/dL Urine Glucose (UA) (NEGATIVE) mg/dL Urine Ketones (NEGATIVE) mg/dL Urine Blood (NEGATIVE) Urine Nitrate (NEGATIVE) Urine Bilirubin (NEGATIVE) Urine Urobilinogen (<1 E.U./dL) E.U./dL Ur Leukocyte Esterase (NEGATIVE) Preston/uL Urine RBC (0-2) /hpf Urine WBC (0-6) /hpf Urine Bacteria (NEG) Blood Type Confirm 05/12/18 05/12/18 05/12/18 Range/Units 23:30 21:13 19:13 WBC (4.5-11.0) 10^3/ul RBC (3.5-6.1) 10^6/uL Hgb (12.0-16.0) g/dL Hct (36.0-48.0) % MCV (80.0-105.0) fl MCH (25.0-35.0) pg MCHC (31.0-37.0) g/dl RDW (11.5-14.5) % Plt Count (120.0-450.0) 10^3/uL MPV (7.0-11.0) fl pCO2 (35-45) mm/Hg pO2 52 (80-100) mm/Hg HCO3 (21-28) mmol/L ABG pH (7.35-7.45) ABG Total CO2 (22-28) mmol.L ABG O2 Saturation (95-98) % ABG O2 Content (15-23) ML/dl ABG Base Excess (-2.0-3.0) mmol/L ABG Hemoglobin (11.7-17.4) g/dL ABG Carboxyhemoglobin (0.5-1.5) % POC ABG HHb (Measured) (0-5) % ABG Methemoglobin (0.0-3.0) % ABG O2 Capacity (16-24) mL/dl VBG pH 7.37 (7.32-7.43) VBG pCO2 47.0 (40-60) VBG HCO3 27.2 (21-28) mmol/l VBG Total CO2 28.6 H (22-28) mmol.L VBG O2 Sat (Calc) 89.8 H (40-65) % VBG Base Excess 1.3 (0.0-2.0) mmol/L VBG Potassium 4.0 (3.6-5.2) mmol/L Hgb O2 Saturation (95.0-98.0) % Sodium 137.0 (132-148) mmol/L Chloride 101.0 (98-107) mmol/L Glucose 387 H (65-105) mg/dl Lactate 1.9 (0.7-2.1) mmol/L FiO2 21.0 % Potassium (3.6-5.0) mmol/L Carbon Dioxide (21-33) mmol/L Anion Gap (10-20) BUN (7-21) mg/dL Creatinine (0.7-1.2) mg/dl Est GFR ( Amer) Est GFR (Non-Af Amer) POC Glucose (mg/dL) 285 H (65-110) mg/dL Random Glucose (70-110) mg/dL Calcium (8.4-10.5) mg/dL Total Bilirubin (0.2-1.3) mg/dL AST (14-36) U/L ALT (7-56) U/L Alkaline Phosphatase (38-126) U/L Troponin I 1.37 H* D ng/mL Total Protein (5.8-8.3) g/dL Albumin (3.0-4.8) g/dL Globulin gm/dL Albumin/Globulin Ratio (1.1-1.8) Triglycerides (35-160) mg/dL Cholesterol (130-200) mg/dL LDL Cholesterol Direct (0-129) mg/dL HDL Cholesterol (29-60) mg/dL TSH 3rd Generation (0.46-4.68) mIU/mL Venous Blood Potassium 4.0 (3.6-5.2) mmol/L Urine Color (YELLOW) Urine Appearance (CLEAR) Urine pH (4.7-8.0) Ur Specific Clymer (1.005-1.035) Urine Protein (<30 mg/dL) mg/dL Urine Glucose (UA) (NEGATIVE) mg/dL Urine Ketones (NEGATIVE) mg/dL Urine Blood (NEGATIVE) Urine Nitrate (NEGATIVE) Urine Bilirubin (NEGATIVE) Urine Urobilinogen (<1 E.U./dL) E.U./dL Ur Leukocyte Esterase (NEGATIVE) Preston/uL Urine RBC (0-2) /hpf Urine WBC (0-6) /hpf Urine Bacteria (NEG) Blood Type Confirm 05/12/18 05/12/18 05/12/18 Range/Units 19:13 19:13 17:15 WBC (4.5-11.0) 10^3/ul RBC (3.5-6.1) 10^6/uL Hgb (12.0-16.0) g/dL Hct (36.0-48.0) % MCV (80.0-105.0) fl MCH (25.0-35.0) pg MCHC (31.0-37.0) g/dl RDW (11.5-14.5) % Plt Count (120.0-450.0) 10^3/uL MPV (7.0-11.0) fl pCO2 45 (35-45) mm/Hg pO2 99.0 (80-100) mm/Hg HCO3 26.0 (21-28) mmol/L ABG pH 7.37 (7.35-7.45) ABG Total CO2 27.4 (22-28) mmol.L ABG O2 Saturation 99.2 H (95-98) % ABG O2 Content 16.3 (15-23) ML/dl ABG Base Excess 0.4 (-2.0-3.0) mmol/L ABG Hemoglobin 12.0 (11.7-17.4) g/dL ABG Carboxyhemoglobin 2.0 H (0.5-1.5) % POC ABG HHb (Measured) 0.8 (0-5) % ABG Methemoglobin 1.1 (0.0-3.0) % ABG O2 Capacity 16.4 (16-24) mL/dl VBG pH (7.32-7.43) VBG pCO2 (40-60) VBG HCO3 (21-28) mmol/l VBG Total CO2 (22-28) mmol.L VBG O2 Sat (Calc) (40-65) % VBG Base Excess (0.0-2.0) mmol/L VBG Potassium (3.6-5.2) mmol/L Hgb O2 Saturation 96.1 (95.0-98.0) % Sodium (132-148) mmol/L Chloride (98-107) mmol/L Glucose (65-105) mg/dl Lactate (0.7-2.1) mmol/L FiO2 40.0 % Potassium (3.6-5.0) mmol/L Carbon Dioxide (21-33) mmol/L Anion Gap (10-20) BUN (7-21) mg/dL Creatinine (0.7-1.2) mg/dl Est GFR ( Amer) Est GFR (Non-Af Amer) POC Glucose (mg/dL) (65-110) mg/dL Random Glucose (70-110) mg/dL Calcium (8.4-10.5) mg/dL Total Bilirubin (0.2-1.3) mg/dL AST (14-36) U/L ALT (7-56) U/L Alkaline Phosphatase (38-126) U/L Troponin I 1.07 H* D ng/mL Total Protein (5.8-8.3) g/dL Albumin (3.0-4.8) g/dL Globulin gm/dL Albumin/Globulin Ratio (1.1-1.8) Triglycerides (35-160) mg/dL Cholesterol (130-200) mg/dL LDL Cholesterol Direct (0-129) mg/dL HDL Cholesterol (29-60) mg/dL TSH 3rd Generation 4.72 H (0.46-4.68) mIU/mL Venous Blood Potassium (3.6-5.2) mmol/L Urine Color (YELLOW) Urine Appearance (CLEAR) Urine pH (4.7-8.0) Ur Specific Clymer (1.005-1.035) Urine Protein (<30 mg/dL) mg/dL Urine Glucose (UA) (NEGATIVE) mg/dL Urine Ketones (NEGATIVE) mg/dL Urine Blood (NEGATIVE) Urine Nitrate (NEGATIVE) Urine Bilirubin (NEGATIVE) Urine Urobilinogen (<1 E.U./dL) E.U./dL Ur Leukocyte Esterase (NEGATIVE) Preston/uL Urine RBC (0-2) /hpf Urine WBC (0-6) /hpf Urine Bacteria (NEG) Blood Type Confirm 05/12/18 05/12/18 05/12/18 Range/Units 16:45 15:00 13:45 WBC (4.5-11.0) 10^3/ul RBC (3.5-6.1) 10^6/uL Hgb (12.0-16.0) g/dL Hct (36.0-48.0) % MCV (80.0-105.0) fl MCH (25.0-35.0) pg MCHC (31.0-37.0) g/dl RDW (11.5-14.5) % Plt Count (120.0-450.0) 10^3/uL MPV (7.0-11.0) fl pCO2 (35-45) mm/Hg pO2 (80-100) mm/Hg HCO3 (21-28) mmol/L ABG pH (7.35-7.45) ABG Total CO2 (22-28) mmol.L ABG O2 Saturation (95-98) % ABG O2 Content (15-23) ML/dl ABG Base Excess (-2.0-3.0) mmol/L ABG Hemoglobin (11.7-17.4) g/dL ABG Carboxyhemoglobin (0.5-1.5) % POC ABG HHb (Measured) (0-5) % ABG Methemoglobin (0.0-3.0) % ABG O2 Capacity (16-24) mL/dl VBG pH (7.32-7.43) VBG pCO2 (40-60) VBG HCO3 (21-28) mmol/l VBG Total CO2 (22-28) mmol.L VBG O2 Sat (Calc) (40-65) % VBG Base Excess (0.0-2.0) mmol/L VBG Potassium (3.6-5.2) mmol/L Hgb O2 Saturation (95.0-98.0) % Sodium (132-148) mmol/L Chloride (98-107) mmol/L Glucose (65-105) mg/dl Lactate (0.7-2.1) mmol/L FiO2 % Potassium (3.6-5.0) mmol/L Carbon Dioxide (21-33) mmol/L Anion Gap (10-20) BUN (7-21) mg/dL Creatinine (0.7-1.2) mg/dl Est GFR ( Amer) Est GFR (Non-Af Amer) POC Glucose (mg/dL) 323 H (65-110) mg/dL Random Glucose (70-110) mg/dL Calcium (8.4-10.5) mg/dL Total Bilirubin (0.2-1.3) mg/dL AST (14-36) U/L ALT (7-56) U/L Alkaline Phosphatase (38-126) U/L Troponin I ng/mL Total Protein (5.8-8.3) g/dL Albumin (3.0-4.8) g/dL Globulin gm/dL Albumin/Globulin Ratio (1.1-1.8) Triglycerides (35-160) mg/dL Cholesterol (130-200) mg/dL LDL Cholesterol Direct (0-129) mg/dL HDL Cholesterol (29-60) mg/dL TSH 3rd Generation (0.46-4.68) mIU/mL Venous Blood Potassium (3.6-5.2) mmol/L Urine Color Yellow (YELLOW) Urine Appearance Clear (CLEAR) Urine pH 6.0 (4.7-8.0) Ur Specific Clymer 1.025 (1.005-1.035) Urine Protein 100 H (<30 mg/dL) mg/dL Urine Glucose (UA) >=1000 (NEGATIVE) mg/dL Urine Ketones 15 H (NEGATIVE) mg/dL Urine Blood Small H (NEGATIVE) Urine Nitrate Negative (NEGATIVE) Urine Bilirubin Negative (NEGATIVE) Urine Urobilinogen 0.2 (<1 E.U./dL) E.U./dL Ur Leukocyte Esterase Negative (NEGATIVE) Preston/uL Urine RBC 0 - 2 (0-2) /hpf Urine WBC 0 - 2 (0-6) /hpf Urine Bacteria Few (NEG) Blood Type Confirm O POSITIVE Laboratory Results - last 24 hr 05/12/18 05/12/18 05/12/18 13:45 15:00 16:45 WBC RBC Hgb Hct MCV MCH MCHC RDW Plt Count MPV pCO2 pO2 HCO3 ABG pH ABG Total CO2 ABG O2 Saturation ABG O2 Content ABG Base Excess ABG Hemoglobin ABG Carboxyhemoglobin POC ABG HHb (Measured) ABG Methemoglobin ABG O2 Capacity VBG pH VBG pCO2 VBG HCO3 VBG Total CO2 VBG O2 Sat (Calc) VBG Base Excess VBG Potassium Hgb O2 Saturation Sodium Chloride Glucose Lactate FiO2 Potassium Carbon Dioxide Anion Gap BUN Creatinine Est GFR ( Amer) Est GFR (Non-Af Amer) POC Glucose (mg/dL) 323 H Random Glucose Calcium Total Bilirubin AST ALT Alkaline Phosphatase Troponin I Total Protein Albumin Globulin Albumin/Globulin Ratio Triglycerides Cholesterol LDL Cholesterol Direct HDL Cholesterol TSH 3rd Generation Venous Blood Potassium Urine Color Yellow Urine Appearance Clear Urine pH 6.0 Ur Specific Clymer 1.025 Urine Protein 100 H Urine Glucose (UA) >=1000 Urine Ketones 15 H Urine Blood Small H Urine Nitrate Negative Urine Bilirubin Negative Urine Urobilinogen 0.2 Ur Leukocyte Esterase Negative Urine RBC 0 - 2 Urine WBC 0 - 2 Urine Bacteria Few Blood Type Confirm O POSITIVE 05/12/18 05/12/18 05/12/18 17:15 19:13 19:13 WBC RBC Hgb Hct MCV MCH MCHC RDW Plt Count MPV pCO2 45 pO2 99.0 HCO3 26.0 ABG pH 7.37 ABG Total CO2 27.4 ABG O2 Saturation 99.2 H ABG O2 Content 16.3 ABG Base Excess 0.4 ABG Hemoglobin 12.0 ABG Carboxyhemoglobin 2.0 H POC ABG HHb (Measured) 0.8 ABG Methemoglobin 1.1 ABG O2 Capacity 16.4 VBG pH VBG pCO2 VBG HCO3 VBG Total CO2 VBG O2 Sat (Calc) VBG Base Excess VBG Potassium Hgb O2 Saturation 96.1 Sodium Chloride Glucose Lactate FiO2 40.0 Potassium Carbon Dioxide Anion Gap BUN Creatinine Est GFR ( Amer) Est GFR (Non-Af Amer) POC Glucose (mg/dL) Random Glucose Calcium Total Bilirubin AST ALT Alkaline Phosphatase Troponin I 1.07 H* D Total Protein Albumin Globulin Albumin/Globulin Ratio Triglycerides Cholesterol LDL Cholesterol Direct HDL Cholesterol TSH 3rd Generation 4.72 H Venous Blood Potassium Urine Color Urine Appearance Urine pH Ur Specific [place]mer Urine Protein Urine Glucose (UA) Urine Ketones Urine Blood Urine Nitrate Urine Bilirubin Urine Urobilinogen Ur Leukocyte Esterase Urine RBC Urine WBC Urine Bacteria Blood Type Confirm 05/12/18 05/12/18 05/12/18 19:13 21:13 23:30 WBC RBC Hgb Hct MCV MCH MCHC RDW Plt Count MPV pCO2 pO2 52 HCO3 ABG pH ABG Total CO2 ABG O2 Saturation ABG O2 Content ABG Base Excess ABG Hemoglobin ABG Carboxyhemoglobin POC ABG HHb (Measured) ABG Methemoglobin ABG O2 Capacity VBG pH 7.37 VBG pCO2 47.0 VBG HCO3 27.2 VBG Total CO2 28.6 H VBG O2 Sat (Calc) 89.8 H VBG Base Excess 1.3 VBG Potassium 4.0 Hgb O2 Saturation Sodium 137.0 Chloride 101.0 Glucose 387 H Lactate 1.9 FiO2 21.0 Potassium Carbon Dioxide Anion Gap BUN Creatinine Est GFR ( Amer) Est GFR (Non-Af Amer) POC Glucose (mg/dL) 285 H Random Glucose Calcium Total Bilirubin AST ALT Alkaline Phosphatase Troponin I 1.37 H* D Total Protein Albumin Globulin Albumin/Globulin Ratio Triglycerides Cholesterol LDL Cholesterol Direct HDL Cholesterol TSH 3rd Generation Venous Blood Potassium 4.0 Urine Color Urine Appearance Urine pH Ur Specific [place]mer Urine Protein Urine Glucose (UA) Urine Ketones Urine Blood Urine Nitrate Urine Bilirubin Urine Urobilinogen Ur Leukocyte Esterase Urine RBC Urine WBC Urine Bacteria Blood Type Confirm 05/13/18 05/13/18 05/13/18 05:00 05:00 07:39 WBC 8.3 D RBC 4.68 Hgb 11.8 L D Hct 37.9 MCV 81.0 MCH 25.2 MCHC 31.1 RDW 13.8 Plt Count 209 MPV 10.8 pCO2 pO2 HCO3 ABG pH ABG Total CO2 ABG O2 Saturation ABG O2 Content ABG Base Excess ABG Hemoglobin ABG Carboxyhemoglobin POC ABG HHb (Measured) ABG Methemoglobin ABG O2 Capacity VBG pH VBG pCO2 VBG HCO3 VBG Total CO2 VBG O2 Sat (Calc) VBG Base Excess VBG Potassium Hgb O2 Saturation Sodium 138 Chloride 100 Glucose Lactate FiO2 Potassium 3.9 Carbon Dioxide 34 H Anion Gap 8 L BUN 20 Creatinine 1.0 Est GFR ( Amer) > 60 Est GFR (Non-Af Amer) 54 POC Glucose (mg/dL) 211 H Random Glucose 207 H Calcium 8.5 Total Bilirubin 0.4 AST 21 ALT 21 Alkaline Phosphatase 128 H D Troponin I Total Protein 5.8 Albumin 3.0 Globulin 2.8 Albumin/Globulin Ratio 1.1 Triglycerides 158 Cholesterol 195 LDL Cholesterol Direct 133 H HDL Cholesterol 30 TSH 3rd Generation Venous Blood Potassium Urine Color Urine Appearance Urine pH Ur Specific Clymer Urine Protein Urine Glucose (UA) Urine Ketones Urine Blood Urine Nitrate Urine Bilirubin Urine Urobilinogen Ur Leukocyte Esterase Urine RBC Urine WBC Urine Bacteria Blood Type Confirm EKG/Cardiology Studies: Cardiology / EKG Studies 05/12/18 17:00 EKG [ELECTROCARDIOGRAM] Routine Comment: Reason For Exam: SOB Critical Care Progress Note - Nutrition Nutrition: Nutrition Category Date Time Status Heart Healthy Diet [DIET] Diets 05/12/18 Dinner Active Assessment/Plan - Assessment and Plan (Free Text) Assessment: Patient seen and examined on rounds with resident, agree with note with following additions/exceptions: Patient is 72yo female with PMHx of CAD, CHF, DM, HTN, HLD, hx of medication noncompliance, presents with SOB, acute decompensated CHF exacerbation, NSTEMI, and PE. Patient was intially on BIPAP, currently off, doing well on 2LNC, afebrile, BP stable, comfortable in NAD. \ Labs, imaging, chart reviewed. Good UOP, SOB has resolved. CHF, acute decompensated, systolic NSTEMI CAD PE SOB DM HTN Recommend: - supp o2 as needed, duonebs PRN - NO ID issues, follow up cultures - ASA, Plavix, Statin, Coreg - Heparin drip, would transition to Eliquis - follow up ECHO read - follow up cardiology - Lasix IV diuresis, monitor UOP, I/Os - FS control - BP control - GI ppx - DVT ppx - Monitor in MICU Critical care time 35 minutes
--- NOTE | 2018-05-13 17:52 | PN ---
DATE: 05/13/2018 SUBJECTIVE: She is in the Intensive Care Unit. She came in with severe CHF, it turns out to a source of pulmonary embolus. She is resting comfortably, though after she diuresed a lot of fluid from the diuresis. She is on aspirin. She is on liquid Colace, Coreg, she is on a heparin drip, Lasix 40 twice a day now IV, Lipitor. She is off the Lovenox. She is on heparin, Plavix, Pepcid, and Zestril. She had a dose of Zaroxolyn. PHYSICAL EXAMINATION: VITAL SIGNS: She has a 98.2 temperature, 98 pulse, 145/89 blood pressure, 29 respiratory rate, and 95% O2 sat on room air. HEENT: Head is atraumatic, normocephalic. HEART: Regular rate. LUNGS: Decreased breath sounds, but clearing. ABDOMEN: Soft, nontender. Positive bowel sounds. EXTREMITIES: Have trace edema, was much worse yesterday. She diuresed very well. LABORATORY DATA: She has an 8.3 white count, 11.8 hemoglobin, 37.9 hematocrit with 209 platelets, D-dimer is 929. They found a pulmonary embolus. She has 138 sodium, potassium 3.9, BUN 20, creatinine is 1, GFR is 54, sugar is 211. AST is 21, ALT is 21, alk phos of 128. Troponins were elevated at 1.07 and 1.37. Total protein 5.8, albumin is 3. It is very likely that she had a small IL. She was seen by the circulator, Cardiology. I will call in Pulmonology for the PE. She is going to be on heparin. Hopefully, we will get it to Eliquis versus Coumadin. Also, continue with the 81 mg of aspirin, heparin drip, Lasix 40 b.i.d., Lipitor, nitroglycerin, and Plavix. We will watch her labs. Rick Chisholm DO
[2018-05-13] MEDS: Nystatin-Triamcinolone Ointment(30 gm) TOP SCH (18:26)
[2018-05-14] MEDS: Nitroglycerin 2% Ointment Foilpak UD TOP SCH ×4 (05:45→23:46)
[2018-05-14 06:32] LABS: HEMOGLOBIN 11.3 g/dL (12.0-16.0); MEAN CELL VOLUME 81.4 fl (80.0-105.0); MEAN CORPUSCULAR HEMOGLOBIN 25.1 pg (25.0-35.0); MEAN CORPUSCULAR HGB CONC 30.8 g/dl (31.0-37.0); MEAN PLATELET VOLUME 11.2 fl (7.0-11.0); RBC 4.51 10^6/uL (3.5-6.1); WHITE BLOOD COUNT 8.6 10^3/ul (4.5-11.0)
[2018-05-14 08:37] LABS: ALBUMIN 2.9 g/dL (3.0-4.8); CALCIUM 8.1 mg/dL (8.4-10.5); TROPONIN I 0.58 ng/mL
[2018-05-14] MEDS: Insulin Reg-MEDIUM-Coverage SC SCH ×3 (08:44→17:25)
[2018-05-14] MEDS: Nystatin-Triamcinolone Ointment(30 gm) TOP SCH ×2 (09:30→17:29)
[2018-05-14] MEDS ORDERED: metOLazone 5 MG TAB PO STA (09:44)
--- NOTE | 2018-05-14 11:19 | PN ---
DATE: 05/14/2018 LOCATION: The patient in CCU 129, bed 6. This note is being dictated on behalf of Dr. Rivera whom I am covering. REASON FOR FOLLOWUP AND CONSULT: Congestive heart failure, bilateral pleural effusion, pulmonary embolisms, sinus tachycardia. SUBJECTIVE: The patient is lying flat in the bed without any complaints of chest pain, shortness of breath or palpitation. PHYSICAL EXAMINATION: VITAL SIGNS: Blood pressure 125/64, respirations 30, pulse 95. HEENT: Head is normocephalic. Eyes: Pupils normal. Conjunctivae normal. NECK: JVP low. Carotids equal. THORAX: AP diameter normal. LUNGS: Diminished breath sound, bilateral, lower half of both lungs. CARDIOVASCULAR: S1 and S2. ABDOMEN: Bowel sound normal. Soft abdomen. EXTREMITIES: No clubbing. No cyanosis. LABORATORY DATA: WBC 8.6, hemoglobin 11.3, hematocrit 36.7, platelets 198. Sodium 137, potassium 3.6, BUN 26, creatinine 1.2, troponin 0.58. First troponin 0.02, second one 1.07, third one 1.37 and now 0.58. AST, ALT normal. Total protein 5.6, albumin 2.9. DIAGNOSES: Acute systolic congestive heart failure, multiple small pulmonary emboli, bilateral large pleural effusions, diabetes mellitus, hypertension. PLAN: The patient was started on a heparin drip yesterday, also on aspirin 81 mg daily, carvedilol 6.25 b.i.d., furosemide 40 IV b.i.d., atorvastatin 40 daily, nitroglycerin 1 inch every 6 hours, Pepcid 20 mg IV daily, Plavix 75 daily, lisinopril 5 mg daily. I gave Zaroxolyn 5 mg stat dose yesterday. We will repeat again today at 2.5 for diuresis. From tomorrow, Dr. Rivera will follow the patient. The patient's troponin also elevated, which raised the possibility of [id number] myocardial infarction. Dr. Rivera will be following from tomorrow. Fanta Walsh MD
--- NOTE | 2018-05-14 11:44 | CP.CCUPN ---
<Hi Mesa - Last Filed: 05/14/18 11:31> CCU Subjective - Physician Review Subjective (Free Text): Hi Mesa DO PGY1 Internal Medicine Maintenance Analyst - ICU Progress Note Patient was seen and examined this AM at bedside No acute events overnight; Patient remained hemodynamically stable C/o SOB/Cough improving at this time. Denied any chest pain or abd pain. Denies N/V/D/C; Reports having good BM yesterday afternoon 12 System ROS otherwise negative at this time. CCU Objective - Vital Signs / Intake & Output Vital Signs (Last 4 hours): Vital Signs Pulse Resp BP Pulse Ox 05/14/18 09:32 105 H 05/14/18 09:30 95 H 32 H 05/14/18 09:20 97 H 31 H 97 05/14/18 09:19 94 H 125/64 05/14/18 09:10 94 H 25 H 97 05/14/18 09:00 92 H 27 H 125/64 95 05/14/18 08:50 93 H 16 96 05/14/18 08:40 92 H 33 H 95 05/14/18 08:30 94 H 27 H 94 L 05/14/18 08:20 88 19 96 05/14/18 08:10 86 27 H 97 05/14/18 08:00 88 24 143/87 97 05/14/18 07:50 86 28 H 97 05/14/18 07:40 90 21 98 Intake and Output (Last 8hrs): Intake & Output 05/13/18 05/14/18 05/14/18 22:59 06:59 14:59 Intake Total 985 242 Output Total 1200 175 Balance -215 67 Weight 76.748 kg Intake: IV 235 122 Right Hand 90 113 Oral 750 120 Output: Urine 1200 175 Urethral (Mooney) 1200 175 Other: # Bowel Movements 1 1 - Physical Exam Head: Positive for: Atraumatic Pupils: Positive for: PERRL Conjunctiva: Negative for: Injected, Icteric Mouth: Positive for: Moist Mucous Membranes Pharnyx: Negative for: ERYTHEMA Neck: Positive for: Normal Range of Motion. Negative for: Meningeal Signs, MIDLINE TENDERNESS, JVD Respiratory/Chest: Positive for: Decreased Breath Sounds (RML/RLL + LLL improving ), Other (Improved Bibasilar crackling ) Cardiovascular: Positive for: Normal S1, S2, Tachycardic Abdomen: Positive for: Distention (tympaNIC), Normal Bowel Sounds. Negative for : Tenderness, Peritoneal Signs, Guarding Rectal: Negative for: Gross Blood Back: Negative for: CVA Tenderness Upper Extremity: Negative for: Cyanosis Lower Extremity: Positive for: Edema. Negative for: CALF TENDERNESS Neurological: Positive for: GCS=15, CN II-XII Intact, Speech Normal, Memory Normal Skin: Positive for: Pale Psychiatric: Positive for: Alert, Oriented x 3 - Medications Active Medications: Active Medications Generic Name Dose Route Start Last Admin Trade Name Freq PRN Reason Stop Dose Admin Aspirin 81 mg 05/13/18 14:00 05/14/18 09:19 Aspirin Chewable PO 81 mg DAILY BRIANNE Administration Atorvastatin Calcium 40 mg 05/12/18 17:00 05/13/18 18:19 Lipitor PO 40 mg DIN BRIANNE Administration Carvedilol 6.25 mg 05/13/18 10:00 05/14/18 09:19 Coreg PO 6.25 mg BID BRIANNE Administration Clopidogrel Bisulfate 75 mg 05/12/18 15:00 05/14/18 09:19 Plavix PO 75 mg DAILY BRIANNE Administration Docusate Sodium 100 mg 05/13/18 14:00 05/14/18 09:19 Colace Liquid PO 100 mg TID BRIANNE Administration Famotidine 20 mg 05/12/18 14:15 05/14/18 09:18 Pepcid IVP 20 mg DAILY BRIANNE Administration Furosemide 40 mg 05/12/18 18:00 05/14/18 07:30 Lasix IVP 40 mg BID BRIANNE Administration Heparin Sodium/Sodium Chloride 25,000 units in 250 mls @ 13.472 mls/hr 10:12 05/14/18 06:00 Heparin 11618 Units/250ml 1/2 Normal Saline IV 12 units/kg/hr .[id number] PRN 8.981 mls/hr ADJUST RATE PER PROTOCOL Titration Protocol 18 UNITS/KG/HR Insulin Human Regular 0 units 05/12/18 16:30 05/14/18 08:44 Humulin R Med SC 1 u ACHS BRIANNE Administration Protocol Lisinopril 5 mg 05/12/18 18:42 05/14/18 09:19 Zestril PO 5 mg DAILY BRIANNE Administration Nitroglycerin 1 ea 05/12/18 18:50 05/14/18 05:45 Nitro-Bid 2% Oint TOP 1 ea Q6 BRIANNE Administration Nystatin/Triamcinolone Acetonide 0 gm 05/13/18 18:00 05/14/18 09:30 Nystatin/Triamcinolone Ointment TOP 1 applic BID BRIANNE Administration - Patient Studies Lab Studies: Microbiology Studies 05/12/18 15:50 MRSA Culture (Admit) - Final Naris MRSA NOT DETECTED 05/12/18 13:45 Blood Culture - Preliminary Blood NO GROWTH AFTER 24 HOURS Lab Studies 05/14/18 05/14/18 05/14/18 Range/Units 07:44 05:00 05:00 WBC (4.5-11.0) 10^3/ul RBC (3.5-6.1) 10^6/uL Hgb (12.0-16.0) g/dL Hct (36.0-48.0) % MCV (80.0-105.0) fl MCH (25.0-35.0) pg MCHC (31.0-37.0) g/dl RDW (11.5-14.5) % Plt Count (120.0-450.0) 10^3/uL MPV (7.0-11.0) fl APTT 66.1 H (25.1-36.5) Seconds Sodium 137 (132-148) mmol/L Potassium 3.6 (3.6-5.0) mmol/L Chloride 98 (98-107) mmol/L Carbon Dioxide 31 (21-33) mmol/L Anion Gap 11 (10-20) BUN 26 H (7-21) mg/dL Creatinine 1.2 (0.7-1.2) mg/dl Est GFR ( Amer) 53 Est GFR (Non-Af Amer) 44 POC Glucose (mg/dL) 195 H (65-110) mg/dL Random Glucose 191 H (70-110) mg/dL Hemoglobin A1c (4.2-6.5) % Calcium 8.1 L (8.4-10.5) mg/dL Total Bilirubin 0.2 (0.2-1.3) mg/dL AST 18 (14-36) U/L ALT 25 (7-56) U/L Alkaline Phosphatase 118 (38-126) U/L Troponin I 0.58 H* D ng/mL Total Protein 5.6 L (5.8-8.3) g/dL Albumin 2.9 L (3.0-4.8) g/dL Globulin 2.8 gm/dL Albumin/Globulin Ratio 1.0 L (1.1-1.8) Procalcitonin (0.19-0.49) NG/ML 05/14/18 05/13/18 05/13/18 Range/Units 05:00 22:01 22:00 WBC 8.6 (4.5-11.0) 10^3/ul RBC 4.51 (3.5-6.1) 10^6/uL Hgb 11.3 L (12.0-16.0) g/dL Hct 36.7 (36.0-48.0) % MCV 81.4 (80.0-105.0) fl MCH 25.1 (25.0-35.0) pg MCHC 30.8 L (31.0-37.0) g/dl RDW 14.0 (11.5-14.5) % Plt Count 198 (120.0-450.0) 10^3/uL MPV 11.2 H (7.0-11.0) fl APTT 95.2 H (25.1-36.5) Seconds Sodium (132-148) mmol/L Potassium (3.6-5.0) mmol/L Chloride (98-107) mmol/L Carbon Dioxide (21-33) mmol/L Anion Gap (10-20) BUN (7-21) mg/dL Creatinine (0.7-1.2) mg/dl Est GFR ( Amer) Est GFR (Non-Af Amer) POC Glucose (mg/dL) 187 H (65-110) mg/dL Random Glucose (70-110) mg/dL Hemoglobin A1c (4.2-6.5) % Calcium (8.4-10.5) mg/dL Total Bilirubin (0.2-1.3) mg/dL AST (14-36) U/L ALT (7-56) U/L Alkaline Phosphatase (38-126) U/L Troponin I ng/mL Total Protein (5.8-8.3) g/dL Albumin (3.0-4.8) g/dL Globulin gm/dL Albumin/Globulin Ratio (1.1-1.8) Procalcitonin (0.19-0.49) NG/ML 05/13/18 05/13/18 05/13/18 Range/Units 16:42 16:33 11:17 WBC (4.5-11.0) 10^3/ul RBC (3.5-6.1) 10^6/uL Hgb (12.0-16.0) g/dL Hct (36.0-48.0) % MCV (80.0-105.0) fl MCH (25.0-35.0) pg MCHC (31.0-37.0) g/dl RDW (11.5-14.5) % Plt Count (120.0-450.0) 10^3/uL MPV (7.0-11.0) fl APTT 199.0 H* (25.1-36.5) Seconds Sodium (132-148) mmol/L Potassium (3.6-5.0) mmol/L Chloride (98-107) mmol/L Carbon Dioxide (21-33) mmol/L Anion Gap (10-20) BUN (7-21) mg/dL Creatinine (0.7-1.2) mg/dl Est GFR ( Amer) Est GFR (Non-Af Amer) POC Glucose (mg/dL) 158 H 253 H (65-110) mg/dL Random Glucose (70-110) mg/dL Hemoglobin A1c (4.2-6.5) % Calcium (8.4-10.5) mg/dL Total Bilirubin (0.2-1.3) mg/dL AST (14-36) U/L ALT (7-56) U/L Alkaline Phosphatase (38-126) U/L Troponin I ng/mL Total Protein (5.8-8.3) g/dL Albumin (3.0-4.8) g/dL Globulin gm/dL Albumin/Globulin Ratio (1.1-1.8) Procalcitonin (0.19-0.49) NG/ML 05/12/18 05/12/18 Range/Units 19:13 19:13 WBC (4.5-11.0) 10^3/ul RBC (3.5-6.1) 10^6/uL Hgb (12.0-16.0) g/dL Hct (36.0-48.0) % MCV (80.0-105.0) fl MCH (25.0-35.0) pg MCHC (31.0-37.0) g/dl RDW (11.5-14.5) % Plt Count (120.0-450.0) 10^3/uL MPV (7.0-11.0) fl APTT (25.1-36.5) Seconds Sodium (132-148) mmol/L Potassium (3.6-5.0) mmol/L Chloride (98-107) mmol/L Carbon Dioxide (21-33) mmol/L Anion Gap (10-20) BUN (7-21) mg/dL Creatinine (0.7-1.2) mg/dl Est GFR ( Amer) Est GFR (Non-Af Amer) POC Glucose (mg/dL) (65-110) mg/dL Random Glucose (70-110) mg/dL Hemoglobin A1c 12.7 H (4.2-6.5) % Calcium (8.4-10.5) mg/dL Total Bilirubin (0.2-1.3) mg/dL AST (14-36) U/L ALT (7-56) U/L Alkaline Phosphatase (38-126) U/L Troponin I ng/mL Total Protein (5.8-8.3) g/dL Albumin (3.0-4.8) g/dL Globulin gm/dL Albumin/Globulin Ratio (1.1-1.8) Procalcitonin < 0.05 L (0.19-0.49) NG/ML Laboratory Results - last 24 hr 05/12/18 05/12/18 05/13/18 19:13 19:13 11:17 WBC RBC Hgb Hct MCV MCH MCHC RDW Plt Count MPV APTT Sodium Potassium Chloride Carbon Dioxide Anion Gap BUN Creatinine Est GFR ( Amer) Est GFR (Non-Af Amer) POC Glucose (mg/dL) 253 H Random Glucose Hemoglobin A1c 12.7 H Calcium Total Bilirubin AST ALT Alkaline Phosphatase Troponin I Total Protein Albumin Globulin Albumin/Globulin Ratio Procalcitonin < 0.05 L 05/13/18 05/13/18 05/13/18 16:33 16:42 22:00 WBC RBC Hgb Hct MCV MCH MCHC RDW Plt Count MPV APTT 199.0 H* 95.2 H Sodium Potassium Chloride Carbon Dioxide Anion Gap BUN Creatinine Est GFR ( Amer) Est GFR (Non-Af Amer) POC Glucose (mg/dL) 158 H Random Glucose Hemoglobin A1c Calcium Total Bilirubin AST ALT Alkaline Phosphatase Troponin I Total Protein Albumin Globulin Albumin/Globulin Ratio Procalcitonin 05/13/18 05/14/18 05/14/18 22:01 05:00 05:00 WBC 8.6 RBC 4.51 Hgb 11.3 L Hct 36.7 MCV 81.4 MCH 25.1 MCHC 30.8 L RDW 14.0 Plt Count 198 MPV 11.2 H APTT Sodium 137 Potassium 3.6 Chloride 98 Carbon Dioxide 31 Anion Gap 11 BUN 26 H Creatinine 1.2 Est GFR ( Amer) 53 Est GFR (Non-Af Amer) 44 POC Glucose (mg/dL) 187 H Random Glucose 191 H Hemoglobin A1c Calcium 8.1 L Total Bilirubin 0.2 AST 18 ALT 25 Alkaline Phosphatase 118 Troponin I 0.58 H* D Total Protein 5.6 L Albumin 2.9 L Globulin 2.8 Albumin/Globulin Ratio 1.0 L Procalcitonin 05/14/18 05/14/18 05:00 07:44 WBC RBC Hgb Hct MCV MCH MCHC RDW Plt Count MPV APTT 66.1 H Sodium Potassium Chloride Carbon Dioxide Anion Gap BUN Creatinine Est GFR ( Amer) Est GFR (Non-Af Amer) POC Glucose (mg/dL) 195 H Random Glucose Hemoglobin A1c Calcium Total Bilirubin AST ALT Alkaline Phosphatase Troponin I Total Protein Albumin Globulin Albumin/Globulin Ratio Procalcitonin Fingerstick Blood Sugar Results: 195 Critical Care Progress Note - Nutrition Nutrition: Nutrition Category Date Time Status Heart Healthy Diet [DIET] Diets 05/12/18 Dinner Active Assessment/Plan - Assessment and Plan (Free Text) Assessment: 72 year old female with PMH CHF, DM, HLD, HTN, presents for shortness of breath ; Patient admitted to ICU for management and monitoring of hypertensive emergency, CHF exacerbation, hypoxemic respiratory distress. Patient found to have Pulm embolism during admission; started on heparin drip yesterday has shown significant clinical improvement in last 24H and has remained HD stable within last 24H. Plan: Neuro: AAO3 Moving extremities past midline No focal deficit appreciated CT Head negative for acute changes Reorient as necessary Cardio: Normotensive overnight w/ regular heart rate CHF s/s showing significant improvement CW Coreg 6.25 BID CHF 1200ml Output / 24H Decreased from Lasix 40 BID to Lasix 20 BID C/w Lisinopril 5mg QD Hx CAD C/w ASA + Plavix Elevated trop ML 2/2 PE EKG - no ischemic changes; sinus tach ECHO read pending Maintain Map >65 Pulm: Initial ABG Hypoxic; Repeated ABG 05/12 PM Much improved on bipap Bipap DC'd last night; patient tolerated well overnight no resp complaints Satting well on NC; Will titrate O2 accordingly CTA Chest showed PE; BL Pleural effusion Initially on lovenox 80 BID; Started 6000u heparin bolus followed by drip PTT 66.1 this AM; therapeutic; Heparin drip titrated as per protocol O2 PRN Maintain Sat >95% GI: No longer constipated; moving bowels well Colace onboard PRN Pepcid /Nephro: BUN/Cr wnl 2300ml urine out put / 24H Continue monitoring Aim for euvolemia ID: Afebrile No Leukocytosis Procal pending Skin: Fungal rash; Nystatin topical Wound care consulted PPX: Pepcid, Heparin drip Disp: Patient is HD stable, showing no signs of distress or compromise; no longer requiring ICU monitoring or stabilization; Patient is safe for transfer to telemetry Patient seen, examined, and discussed w/ attending physician Dr. Lane Mesa DO PGY1 Internal Medicine Maintenance Analyst - Date & Time Date: 05/14/18 Time: 11:53 <Mark Sherman - Last Filed: 05/14/18 14:44> CCU Objective - Vital Signs / Intake & Output Vital Signs (Last 4 hours): Vital Signs Pulse Resp BP Pulse Ox 05/14/18 12:30 82 26 H 96 05/14/18 12:20 83 26 H 96 05/14/18 12:10 82 32 H 99 05/14/18 12:00 84 86 H 95 05/14/18 11:50 79 26 H 98 05/14/18 11:40 79 26 H 98 05/14/18 11:30 79 22 98 05/14/18 11:20 81 19 98 05/14/18 11:10 84 19 96 05/14/18 11:00 87 22 113/61 98 05/14/18 10:50 83 24 97 Intake and Output (Last 8hrs): Intake & Output 05/13/18 05/14/18 05/14/18 22:59 06:59 14:59 Intake Total 985 242 96 Output Total 1200 175 Balance -215 67 96 Weight 169 lb 3.2 oz Intake: IV 235 122 96 Right Hand 90 113 Oral 750 120 Output: Urine 1200 175 Urethral (Mooney) 1200 175 Other: # Bowel Movements 1 1 - Medications Active Medications: Active Medications Generic Name Dose Route Start Last Admin Trade Name Freq PRN Reason Stop Dose Admin Aspirin 81 mg 05/13/18 14:00 05/14/18 09:19 Aspirin Chewable PO 81 mg DAILY [facility] Administration Atorvastatin Calcium 40 mg 05/12/18 17:00 05/13/18 18:19 Lipitor PO 40 mg DIN BRIANNE Administration Carvedilol 6.25 mg 05/13/18 10:00 05/14/18 09:19 Coreg PO 6.25 mg BID [facility] Administration Clopidogrel Bisulfate 75 mg 05/12/18 15:00 05/14/18 09:19 Plavix PO 75 mg DAILY [facility] Administration Docusate Sodium 100 mg 05/13/18 14:00 05/14/18 09:19 Colace Liquid PO 100 mg TID [facility] Administration Famotidine 20 mg 05/12/18 14:15 05/14/18 09:18 Pepcid IVP 20 mg DAILY [facility] Administration Furosemide 20 mg 05/14/18 11:39 Lasix IVP BID [facility] Heparin Sodium/Sodium Chloride 25,000 units in 250 mls @ 13.472 mls/hr 10:12 05/14/18 12:30 Heparin 10099 Units/250ml 1/2 Normal Saline IV 12 units/kg/hr .[id number] PRN 8.981 mls/hr ADJUST RATE PER PROTOCOL Administration Protocol 18 UNITS/KG/HR Insulin Human Regular 0 units 05/12/18 16:30 05/14/18 08:44 Humulin R Med SC 1 u ACHS BRIANNE Administration Protocol Lisinopril 5 mg 05/12/18 18:42 05/14/18 09:19 Zestril PO 5 mg DAILY [facility] Administration Nitroglycerin 1 ea 05/12/18 18:50 05/14/18 05:45 Nitro-Bid 2% Oint TOP 1 ea Q6 BRIANNE Administration Nystatin/Triamcinolone Acetonide 0 gm 05/13/18 18:00 05/14/18 09:30 Nystatin/Triamcinolone Ointment TOP 1 applic BID BRIANNE Administration - Patient Studies Lab Studies: Microbiology Studies 05/12/18 13:45 Blood Culture - Preliminary Blood NO GROWTH AFTER 48 HOURS 05/12/18 15:50 MRSA Culture (Admit) - Final Naris MRSA NOT DETECTED Lab Studies 05/14/18 05/14/18 05/14/18 Range/Units 11:10 07:44 05:00 WBC (4.5-11.0) 10^3/ul RBC (3.5-6.1) 10^6/uL Hgb (12.0-16.0) g/dL Hct (36.0-48.0) % MCV (80.0-105.0) fl MCH (25.0-35.0) pg MCHC (31.0-37.0) g/dl RDW (11.5-14.5) % Plt Count (120.0-450.0) 10^3/uL MPV (7.0-11.0) fl APTT 57.9 H 66.1 H (25.1-36.5) Seconds Sodium (132-148) mmol/L Potassium (3.6-5.0) mmol/L Chloride (98-107) mmol/L Carbon Dioxide (21-33) mmol/L Anion Gap (10-20) BUN (7-21) mg/dL Creatinine (0.7-1.2) mg/dl Est GFR ( Amer) Est GFR (Non-Af Amer) POC Glucose (mg/dL) 195 H (65-110) mg/dL Random Glucose (70-110) mg/dL Hemoglobin A1c (4.2-6.5) % Calcium (8.4-10.5) mg/dL Total Bilirubin (0.2-1.3) mg/dL AST (14-36) U/L ALT (7-56) U/L Alkaline Phosphatase (38-126) U/L Troponin I ng/mL Total Protein (5.8-8.3) g/dL Albumin (3.0-4.8) g/dL Globulin gm/dL Albumin/Globulin Ratio (1.1-1.8) Procalcitonin (0.19-0.49) NG/ML 05/14/18 05/14/18 05/13/18 Range/Units 05:00 05:00 22:01 WBC 8.6 (4.5-11.0) 10^3/ul RBC 4.51 (3.5-6.1) 10^6/uL Hgb 11.3 L (12.0-16.0) g/dL Hct 36.7 (36.0-48.0) % MCV 81.4 (80.0-105.0) fl MCH 25.1 (25.0-35.0) pg MCHC 30.8 L (31.0-37.0) g/dl RDW 14.0 (11.5-14.5) % Plt Count 198 (120.0-450.0) 10^3/uL MPV 11.2 H (7.0-11.0) fl APTT (25.1-36.5) Seconds Sodium 137 (132-148) mmol/L Potassium 3.6 (3.6-5.0) mmol/L Chloride 98 (98-107) mmol/L Carbon Dioxide 31 (21-33) mmol/L Anion Gap 11 (10-20) BUN 26 H (7-21) mg/dL Creatinine 1.2 (0.7-1.2) mg/dl Est GFR ( Amer) 53 Est GFR (Non-Af Amer) 44 POC Glucose (mg/dL) 187 H (65-110) mg/dL Random Glucose 191 H (70-110) mg/dL Hemoglobin A1c (4.2-6.5) % Calcium 8.1 L (8.4-10.5) mg/dL Total Bilirubin 0.2 (0.2-1.3) mg/dL AST 18 (14-36) U/L ALT 25 (7-56) U/L Alkaline Phosphatase 118 (38-126) U/L Troponin I 0.58 H* D ng/mL Total Protein 5.6 L (5.8-8.3) g/dL Albumin 2.9 L (3.0-4.8) g/dL Globulin 2.8 gm/dL Albumin/Globulin Ratio 1.0 L (1.1-1.8) Procalcitonin (0.19-0.49) NG/ML 05/13/18 05/13/18 05/13/18 Range/Units 22:00 16:42 16:33 WBC (4.5-11.0) 10^3/ul RBC (3.5-6.1) 10^6/uL Hgb (12.0-16.0) g/dL Hct (36.0-48.0) % MCV (80.0-105.0) fl MCH (25.0-35.0) pg MCHC (31.0-37.0) g/dl RDW (11.5-14.5) % Plt Count (120.0-450.0) 10^3/uL MPV (7.0-11.0) fl APTT 95.2 H 199.0 H* (25.1-36.5) Seconds Sodium (132-148) mmol/L Potassium (3.6-5.0) mmol/L Chloride (98-107) mmol/L Carbon Dioxide (21-33) mmol/L Anion Gap (10-20) BUN (7-21) mg/dL Creatinine (0.7-1.2) mg/dl Est GFR ( Amer) Est GFR (Non-Af Amer) POC Glucose (mg/dL) 158 H (65-110) mg/dL Random Glucose (70-110) mg/dL Hemoglobin A1c (4.2-6.5) % Calcium (8.4-10.5) mg/dL Total Bilirubin (0.2-1.3) mg/dL AST (14-36) U/L ALT (7-56) U/L Alkaline Phosphatase (38-126) U/L Troponin I ng/mL Total Protein (5.8-8.3) g/dL Albumin (3.0-4.8) g/dL Globulin gm/dL Albumin/Globulin Ratio (1.1-1.8) Procalcitonin (0.19-0.49) NG/ML 05/13/18 05/12/18 05/12/18 Range/Units 11:17 19:13 19:13 WBC (4.5-11.0) 10^3/ul RBC (3.5-6.1) 10^6/uL Hgb (12.0-16.0) g/dL Hct (36.0-48.0) % MCV (80.0-105.0) fl MCH (25.0-35.0) pg MCHC (31.0-37.0) g/dl RDW (11.5-14.5) % Plt Count (120.0-450.0) 10^3/uL MPV (7.0-11.0) fl APTT (25.1-36.5) Seconds Sodium (132-148) mmol/L Potassium (3.6-5.0) mmol/L Chloride (98-107) mmol/L Carbon Dioxide (21-33) mmol/L Anion Gap (10-20) BUN (7-21) mg/dL Creatinine (0.7-1.2) mg/dl Est GFR ( Amer) Est GFR (Non-Af Amer) POC Glucose (mg/dL) 253 H (65-110) mg/dL Random Glucose (70-110) mg/dL Hemoglobin A1c 12.7 H (4.2-6.5) % Calcium (8.4-10.5) mg/dL Total Bilirubin (0.2-1.3) mg/dL AST (14-36) U/L ALT (7-56) U/L Alkaline Phosphatase (38-126) U/L Troponin I ng/mL Total Protein (5.8-8.3) g/dL Albumin (3.0-4.8) g/dL Globulin gm/dL Albumin/Globulin Ratio (1.1-1.8) Procalcitonin < 0.05 L (0.19-0.49) NG/ML Laboratory Results - last 24 hr 05/12/18 05/12/18 05/13/18 19:13 19:13 11:17 WBC RBC Hgb Hct MCV MCH MCHC RDW Plt Count MPV APTT Sodium Potassium Chloride Carbon Dioxide Anion Gap BUN Creatinine Est GFR ( Amer) Est GFR (Non-Af Amer) POC Glucose (mg/dL) 253 H Random Glucose Hemoglobin A1c 12.7 H Calcium Total Bilirubin AST ALT Alkaline Phosphatase Troponin I Total Protein Albumin Globulin Albumin/Globulin Ratio Procalcitonin < 0.05 L 05/13/18 05/13/1818 16:33 16:42 22:00 WBC RBC Hgb Hct MCV MCH MCHC RDW Plt Count MPV APTT 199.0 H* 95.2 H Sodium Potassium Chloride Carbon Dioxide Anion Gap BUN Creatinine Est GFR ( Amer) Est GFR (Non-Af Amer) POC Glucose (mg/dL) 158 H Random Glucose Hemoglobin A1c Calcium Total Bilirubin AST ALT Alkaline Phosphatase Troponin I Total Protein Albumin Globulin Albumin/Globulin Ratio Procalcitonin 05/13/18 05/14/18 05/14/18 22:01 05:00 05:00 WBC 8.6 RBC 4.51 Hgb 11.3 L Hct 36.7 MCV 81.4 MCH 25.1 MCHC 30.8 L RDW 14.0 Plt Count 198 MPV 11.2 H APTT Sodium 137 Potassium 3.6 Chloride 98 Carbon Dioxide 31 Anion Gap 11 BUN 26 H Creatinine 1.2 Est GFR ( Amer) 53 Est GFR (Non-Af Amer) 44 POC Glucose (mg/dL) 187 H Random Glucose 191 H Hemoglobin A1c Calcium 8.1 L Total Bilirubin 0.2 AST 18 ALT 25 Alkaline Phosphatase 118 Troponin I 0.58 H* D Total Protein 5.6 L Albumin 2.9 L Globulin 2.8 Albumin/Globulin Ratio 1.0 L Procalcitonin 05/14/18 05/14/18 05/14/18 05:00 07:44 11:10 WBC RBC Hgb Hct MCV MCH MCHC RDW Plt Count MPV APTT 66.1 H 57.9 H Sodium Potassium Chloride Carbon Dioxide Anion Gap BUN Creatinine Est GFR ( Amer) Est GFR (Non-Af Amer) POC Glucose (mg/dL) 195 H Random Glucose Hemoglobin A1c Calcium Total Bilirubin AST ALT Alkaline Phosphatase Troponin I Total Protein Albumin Globulin Albumin/Globulin Ratio Procalcitonin Critical Care Progress Note - Nutrition Nutrition: Nutrition Category Date Time Status Heart Healthy Diet [DIET] Diets 05/12/18 Dinner Active Assessment/Plan - Assessment and Plan (Free Text) Assessment: Patient seen and examined on rounds with resident, agree with note with following additions/exceptions: Patient is 72yo female with PMHx of CAD, CHF, DM, HTN, HLD, hx of medication noncompliance, presents with SOB, acute decompensated CHF exacerbation, NSTEMI, and PE. Patient was intially on BIPAP, currently off, doing well on 2LNC, afebrile, BP stable, comfortable in NAD. Labs, imaging, chart reviewed. Good UOP, SOB has resolved. On Heparin drip, with plan to transition to NOAC CHF, acute decompensated, systolic NSTEMI CAD PE SOB DM HTN Recommend: - supp o2 as needed, duonebs PRN - NO ID issues, follow up cultures - ASA, Plavix, Statin, Coreg - Heparin drip, would transition to Eliquis - follow up ECHO read - follow up cardiology - Lasix IV diuresis, decrease Lasix to 20mg IV BID, monitor UOP, I/Os - FS control - BP control - GI ppx - DVT ppx - transfer to telemetry
[2018-05-14] MEDS: Heparin25000 units/250ml 1/2NS 25,000 UNITS/250 ML BAG IV PRN (12:30)
--- NOTE | 2018-05-14 22:06 | CON ---
DATE: 05/14/2018 PULMONARY CONSULTATION HISTORY OF PRESENT ILLNESS: Ms. Padgett is a 72-year-old woman who was admitted through the emergency 2 days ago, she was short of breath. She arrived from [place] with dyspnea. She was found in the Emergency Room to have pulmonary vascular congestion consistent with pulmonary edema. During the course of her workup, she was found to have multiple pulmonary emboli. She is currently in the Intensive Care Unit, awake and alert, oriented, feeling markedly better well since diuresis and heparin therapy. The patient has no smoking history. She denies further history other than diabetes mellitus, coronary artery disease, and hypertension. She had low-grade shortness of breath for quite sometime prior to her arrival in the [facility]. ALLERGIES: NONE. MEDICATIONS: Not available at this time. SOCIAL HISTORY: No smoking history FAMILY HISTORY: HTN REVIEW OF SYSTEMS: Essentially negative review of the hospital records. The patient denies any further history at this time. Shortness of breath. All other systems negative. PHYSICAL EXAMINATION: GENERAL: The patient is sitting in bed, comfortable. She appears markedly better than that described last night. She appears awake, alert, and oriented. VITAL SIGNS: She is afebrile 98.1. Her pulse is 90. Her respiratory rate is 18. Her blood pressure is 140/90. Her O2 saturation is 96%. HEENT: Normocephalic, atraumatic. EOMs full. NECK: Supple. No JVD at this time. No bruit. LUNGS: Rales still noted at both bases. HEART: Regular rhythm, tachycardic, S1 and S2. Soft systolic ejection murmur at the lower left sternal border. ABDOMEN: Soft. Bowel sounds normoactive without mass, guarding, rebound, or organomegaly. EXTREMITIES: 2+ edema persists. NEUROLOGIC: No focal findings. Awake, alert, oriented. LABORATORY DATA: Have been reviewed. Chest x-ray shows significant cardiomegaly and pulmonary vascular congestion on day #1. This has not yet been repeated. Laboratory studies reveal a white count of 8000, hemoglobin of 11, hematocrit 37. Blood gas: pH 7.37, pCO2 of 26, pO2 of 99. Chemistries: Sugar 191, creatinine 1.2, BUN 26, sodium 137, potassium 3.6, chloride 98, carbon dioxide 31. CT angio of the chest shows pulmonary emboli with no airway disease. Several small emboli are located in the right upper and right middle lobe areas. There is no evidence of right ventricular strain. Bilateral effusions were present at that time. CLINICAL IMPRESSION: 1. Status post respiratory insufficiency/failure. 2. Pulmonary vascular congestion/pulmonary edema. 3. Pulmonary emboli. 4. Diabetes mellitus. 5. Pleural effusion. PLAN: We need to repeat an upright x-ray to look for clearing of the pulmonary vascular congestion. In addition, the patient requires continued heparinization at this time. Close attention to the pulmonary vascular congestion with diuretics. No evidence of COPD at this time. We will follow closely with you and decide on the need for further intervention. Raheel Fitzpatrick MD [email or web address]
--- NOTE | 2018-05-14 23:16 | PN ---
DATE: 05/14/2018 SUBJECTIVE: I saw her in the Intensive Care Unit. She is doing much better. She tells me she is breathing a lot better. No chest pain. No shortness of breath. No abdominal pain. She is here for CHF, pulmonary embolism, diabetes, hypertension. She is currently on aspirin, Colace, Coreg, heparin IV, insulin coverage, Lasix IV, Lipitor, Nitro-Bid, nystatin, Pepcid, Plavix and Zestril. PHYSICAL EXAMINATION: VITAL SIGNS: She has a 98.6 temp, 105 pulse, 125/64 blood pressure, 32 respiratory rate, and 97% O2 sat. HEAD: Atraumatic, normocephalic. HEART: Regular rate. LUNGS: Clear to auscultation. ABDOMEN: Soft, nontender. EXTREMITIES: No edema. She feels like she is getting better, improved, able to get out of bed to chair, and see what the physical therapy has to say. I still need to know from insurance if they will cover Eliquis. We will delay till tomorrow, Tuesday. LABORATORY DATA: She has an 8.6 white count, 11.3 hemoglobin, 36.7 hematocrit with 198 platelets. Last blood sugar was 387, came down to 195. She has a 137 sodium, potassium 3.6, BUN 26, creatinine 1.2, GFR is 44, calcium is 8.1. Total bili is 0.2, AST is 18, ALT is 25, alk phos 118. Troponin I was 0.58, came down from 1.37. Total protein is 5.6. ASSESSMENT AND PLAN: She is being seen by the potato chip processing supervisor, Cardiology. It is possible she is having a [id number] myocardial infarction, awaiting for the appeals board referee to make a decision tomorrow of what to do. Clinically she is improving now, so I have to make a decision on whether we change to Eliquis or start Coumadin. The patient has got congestive heart failure, pulmonary embolism and possible myocardial infarction and [id number] myocardial infarction. She may need a cardiac catheterization. Continue with aggressive treatment and care. Rick Chisholm DO [facility] # [id number]
[2018-05-15 06:43] LABS: BASO # 0.03 K/mm3 (0.0-2.0); BASO % 0.4 % (0.0-3.0); EOS # 0.3 (0.0-0.7); EOS % 3.6 % (1.5-5.0); GRAN # 5.16 (1.4-6.5); GRAN % 69.5 % (50.0-68.0); HEMOGLOBIN 11.3 g/dL (12.0-16.0); LYMPH # 1.4 (1.2-3.4); LYMPH % 19.2 % (22.0-35.0); MEAN CELL VOLUME 80.4 fl (80.0-105.0); MEAN CORPUSCULAR HEMOGLOBIN 25.5 pg (25.0-35.0); MEAN CORPUSCULAR HGB CONC 31.7 g/dl (31.0-37.0); MEAN PLATELET VOLUME 11.8 fl (7.0-11.0); MONO # 0.5 (0.1-0.6); MONO % 7.3 % (1.0-6.0); RBC 4.44 10^6/uL (3.5-6.1); RED CELL DISTRIBUTION WIDTH 13.7 % (11.5-14.5); WHITE BLOOD COUNT 7.4 10^3/ul (4.5-11.0)
[2018-05-15 06:51] LABS: INR 1.1; PROTHROMBIN TIME 12.7 SECONDS (9.4-12.5)
[2018-05-15 06:52] LABS: ALBUMIN 2.9 g/dL (3.0-4.8); CALCIUM 8.1 mg/dL (8.4-10.5)
[2018-05-15] MEDS: Insulin Reg-MEDIUM-Coverage SC SCH ×4 (07:30→22:02)
--- NOTE | 2018-05-15 08:22 | PN ---
DATE: 05/15/2018([id number]) PULMONARY NOTE SUBJECTIVE: The patient appears comfortable this morning. She is not short of breath at rest. OBJECTIVE: VITAL SIGNS: Temperature is 98.1, pulse 64, respirations 18/20, blood pressure 122/67. Oxygen saturation on nasal cannula is 98%. HEENT: Normocephalic, atraumatic. No JVD. CARDIOVASCULAR: Systolic ejection murmur at the lower left sternal border. Positive S3 gallop. LUNGS: Decreased breath sounds at the bases. No rhonchi. No wheezing. EXTREMITIES: Positive for edema. No cyanosis, no clubbing. Calves are nontender to palpation. GI: Abdomen is soft, nontender and nondistended. Bowel sounds are positive. SKIN: No acute rash. NEUROLOGIC: Exam limited at the present time. PERTINENT LABORATORY DATA: Chest x-ray was repeated today and reviewed. There remains moderate pulmonary edema and bilateral infusions. The effusions do appear somewhat decreased from the previous exam. IMPRESSION: 1. Acute congestive heart failure. 2. Bilateral pleural effusions. 3. Pulmonary embolism. 4. Positive troponin, rule out myocardial infarction. 5. Mild anemia. PLAN: The patient appears comfortable this morning. She is not short of breath at rest. I did discuss the case with night nurse at length. The night nurse stated the patient had a very good night. I did review the chest x-ray as above. The chest x-ray remains with moderate pulmonary edema and bilateral pleural effusions. Input by Cardiology is noted. I would consider increasing the diuretic dosage. On physical exam, there is no significant bronchospasm noted. In addition, there is no significant alveolar-arterial gradient. The patient remains on a heparin drip for the pulmonary embolism. Hopefully, we can change to an oral agent in the near future. Repeat morning labs are pending. Clinical status of the patient is certainly improved - compared to the initial presentation. However, the future status/prognosis for this patient does remain guarded. I will discuss the above with the entire ICU team in the next few moments. I will also discuss the above with the attending physician. Bonifacio Ragland MD [facility] # [id number] MTDD
--- NOTE | 2018-05-15 08:44 | RAD ---
Date of service: 05/15/2018 HISTORY: CHF COMPARISON: 05/12/2018 single-view chest. 05/12/2018 CT pulmonary angiogram. FINDINGS: LUNGS: Pulmonary vascular congestion. PLEURA: Large bilateral pleural effusions. CARDIOVASCULAR: Normal. OSSEOUS STRUCTURES: No significant abnormalities. VISUALIZED UPPER ABDOMEN: Normal. OTHER FINDINGS: None. IMPRESSION: Stable pulmonary vascular congestion/pleural effusions. No new, acute abnormalities or interval changes.
[2018-05-15] MEDS: Nystatin-Triamcinolone Ointment(30 gm) TOP SCH ×2 (10:00→17:19)
--- NOTE | 2018-05-15 11:24 | PN ---
DATE: 05/15/2018 CARDIOLOGY FOLLOWUP SUBJECTIVE: The patient's breathing is much improved. Her pulse oximetry off of room air is 97%. PHYSICAL EXAMINATION: VITAL SIGNS: Blood pressure is 152/77, heart rate in the 80s. NECK: Negative JVD. LUNGS: No rales noted. HEART: Reveal S1, S2. EXTREMITIES: Without edema. LABORATORY DATA: Hemoglobin is 11.3. Chemistries: BUN and creatinine is 30 and 1.4. Her troponins were elevated. Glucose is 160. IMPRESSION: 1. Status post acute pulmonary edema. 2. Dilated cardiomyopathy. 3. Small pulmonary embolism. 4. Diabetes mellitus. 5. Hypertension. Given these findings, we will start the patient on Eliquis today and stop her heparin. In addition, I have increased her lisinopril to 10 mg a day. We will change her Lasix to p.o. Lasix. The patient can be transferred to Telemetry. Lei Rivera MD
--- NOTE | 2018-05-15 11:28 | PN ---
DATE: 05/15/2018 SUBJECTIVE: She is resting in the Intensive Care Unit. She is here with congestive heart failure and pulmonary embolus. She is feeling better she tells me. She has an appetite. She needs to get out of bed to chair. MEDICATIONS: She is on aspirin, Coreg, Eliquis, Imdur, Lasix, Lipitor, Zaroxolyn and Zestril. PHYSICAL EXAMINATION: VITAL SIGNS: 98.1 temp, 120/65 blood pressure, 19 respiratory rate, 96% O2 sat on room air. HEENT: Head is atraumatic, normocephalic. HEART: Regular rate. LUNGS: Clear to auscultation. ABDOMEN: Soft. EXTREMITIES: No edema. LABORATORY DATA: She has a 135 sodium; potassium 3.6; BUN is 30; creatinine 1.4, it went up, she has to drink more water. I discussed that with her. GFR is 37, sugar is 160, calcium is 8.1, total bili is 0.3, AST is 22, ALT is 23, alk phos is 113, last troponin was 0.58, total protein is 5.7. White count 7.4, hemoglobin 11.3, hematocrit 35.7, platelets of 204. ASSESSMENT AND PLAN: Awaiting Dr. Rivera's opinion. Pulmonary and kindergarten teacher assistant appreciated. We need to have physical therapy to give us their opinion and they recommend subacute rehab. We will try for [facility] or [facility], that will be in next plan once she is cleared to leave the Intensive Care Unit. I will work with subacute rehab at [facility] or [facility]. Congestive heart failure and pulmonary embolism, on Eliquis now Rick Chisholm DO MTDD
[2018-05-16 01:29] VITALS: RESP 20
--- NOTE | 2018-05-16 07:22 | PN ---
DATE: 05/16/2018 PULMONARY NOTE SUBJECTIVE: The patient appears comfortable this morning. She is not short of breath at rest. PHYSICAL EXAMINATION: VITAL SIGNS: Temperature is 97.9, pulse 87, respirations 18-20, blood pressure 133/77. Oxygen saturation on room air is 92%. Oxygen saturation on nasal cannula is 97%. HEENT: Normocephalic, atraumatic. No JVD. CARDIOVASCULAR: Systolic ejection murmur at the lower left sternal border. Positive S3 gallop. LUNGS: Decreased breath sounds at the bases. No rhonchi. No wheezing. EXTREMITIES: Positive for edema. No cyanosis or clubbing. Calves are nontender to palpation. GASTROINTESTINAL: Abdomen is soft, nontender, and nondistended. Bowel sounds are positive. SKIN: No acute rash. NEUROLOGIC: Limited at the present time. IMPRESSION: 1. Acute congestive heart failure. 2. Dilated cardiomyopathy. 3. Bilateral pleural effusions. 4. Pulmonary embolism. 5. Mild anemia. PLAN: The patient appears very comfortable this morning. She is not short of breath at rest. She does state to feeling much better overall. I did discuss the case with the night nurse at length. The night nurse stated that the patient had a very good night. On physical exam, there is no significant bronchospasm noted. In addition, there is no significant alveolar-arterial gradient. I did review all of the notes by the subspecialists yesterday. The positive troponin - previously noted - can certainly be due to the pulmonary embolism. The patient has been transitioned to oral Lasix. The patient has also been transitioned to Eliquis as per Dr. Rivera (Cardiology). Repeat a.m. labs are pending. Clinical status of the patient is significantly improved overall. However, the future status/prognosis for this patient does remain guarded. I will discuss the above with Dr. Chisholm. Bonifacio Ragland MD MTDAshlee
[2018-05-16 07:33] LABS: BASO # 0.04 K/mm3 (0.0-2.0); BASO % 0.6 % (0.0-3.0); EOS # 0.2 (0.0-0.7); EOS % 3.1 % (1.5-5.0); GRAN # 4.66 (1.4-6.5); GRAN % 68.5 % (50.0-68.0); HEMOGLOBIN 11.4 g/dL (12.0-16.0); LYMPH # 1.3 (1.2-3.4); LYMPH % 19.4 % (22.0-35.0); MEAN CELL VOLUME 79.7 fl (80.0-105.0); MEAN CORPUSCULAR HEMOGLOBIN 25.4 pg (25.0-35.0); MEAN CORPUSCULAR HGB CONC 31.9 g/dl (31.0-37.0); MEAN PLATELET VOLUME 11.2 fl (7.0-11.0); MONO # 0.6 (0.1-0.6); MONO % 8.4 % (1.0-6.0); RBC 4.48 10^6/uL (3.5-6.1); RED CELL DISTRIBUTION WIDTH 13.6 % (11.5-14.5); WHITE BLOOD COUNT 6.8 10^3/ul (4.5-11.0)
[2018-05-16 08:05] LABS: ALB/GLOB RATIO 1.1 (1.1-1.8); CALCIUM 8.3 mg/dL (8.4-10.5)
[2018-05-16] MEDS ORDERED: Potassium Chloride 20 mEq ER Tab PO ONE (10:00)
--- NOTE | 2018-05-16 11:21 | PN ---
DATE: 05/16/2018 CARDIOLOGY FOLLOWUP SUBJECTIVE: The patient is without shortness of breath. PHYSICAL EXAMINATION: VITAL SIGNS: Blood pressure is 133/77, the heart rate is in the 80s. NECK: Negative JVD. LUNGS: Minimal rhonchi. HEART: Reveals S1, S2. EXTREMITIES: Without edema. LABORATORY DATA: Hemoglobin is 11.4. BUN and creatinine are unremarkable. Potassium is 3.1, glucose is 165. IMPRESSION: 1. Status post congestive heart failure. 2. Dilated cardiomyopathy. 3. Pulmonary embolism. 4. Diabetes mellitus. 5. Resolution of dyspnea. PLAN: Given these findings, I agree with increasing her Eliquis to 10 b.i.d. I have had an extensive discussion with the patient's family and the patient. They are agreeable to the TCU. We will arrange for transfer to TCU today. We will replace the potassium today. Lei Rivera MD
[2018-05-16] MEDS: Insulin Reg-MEDIUM-Coverage SC SCH ×3 (12:31→22:00)
--- NOTE | 2018-05-16 14:06 | PN ---
DATE: 05/16/2018 SUBJECTIVE: She is doing quite better than she was doing in the Intensive Care Unit. She is breathing better. No shortness of breath. No chest pain. She is in the telemetry floor. PHYSICAL EXAMINATION: VITAL SIGNS: She has 97.9 temperature, 133/77 blood pressure. HEENT: Head is atraumatic, normocephalic. HEART: Regular rate. LUNGS: Decreased breath sounds, but clear. ABDOMEN: Soft. EXTREMITIES: No edema. MEDICATIONS: She is currently on aspirin, Coreg, Eliquis, Imdur, Lasix, now p.o. Lipitor, nystatin and Zestril. LABORATORY DATA: She has 6.8 white count, 11.4 hemoglobin, 35.7 hematocrit with 212 platelets. She has 137 sodium, potassium 3.1, quite low. I am going to replace the potassium. She has BUN of 25, creatinine 1.2, GFR is 44, blood sugar is 165, calcium is 8.3, total bili is 0.4, AST is 36, ALT is 31, alkaline phosphatase 110, total protein is 5.8. ASSESSMENT AND PLAN: She is being seen by Pulmonary and Cardiology. My plan is to get her to subacute rehab, maybe [facility] or [facility]. I will call on case management to help me do that and is now at the TCU as per the physical therapist. So,put in a TCU order and hopefully, she can get there today or tomorrow. She is definitely improved. Rick Chisholm DO
[2018-05-16] MEDS: Magnesium Oxide 400 mg Tab UD PO SCH (17:42)
[2018-05-17 07:05] LABS: BASO # 0.02 K/mm3 (0.0-2.0); BASO % 0.3 % (0.0-3.0); EOS # 0.2 (0.0-0.7); EOS % 2.6 % (1.5-5.0); GRAN # 4.71 (1.4-6.5); GRAN % 71.9 % (50.0-68.0); HEMOGLOBIN 11.3 g/dL (12.0-16.0); LYMPH # 1.2 (1.2-3.4); LYMPH % 18.2 % (22.0-35.0); MEAN CELL VOLUME 80.2 fl (80.0-105.0); MEAN CORPUSCULAR HEMOGLOBIN 25.4 pg (25.0-35.0); MEAN CORPUSCULAR HGB CONC 31.7 g/dl (31.0-37.0); MEAN PLATELET VOLUME 11.4 fl (7.0-11.0); MONO # 0.5 (0.1-0.6); RBC 4.45 10^6/uL (3.5-6.1); RED CELL DISTRIBUTION WIDTH 13.5 % (11.5-14.5); WHITE BLOOD COUNT 6.6 10^3/ul (4.5-11.0)
[2018-05-17 07:14] LABS: CALCIUM 8.3 mg/dL (8.4-10.5)
[2018-05-17] MEDS: Insulin Reg-MEDIUM-Coverage SC SCH ×2 (07:42→12:04)
[2018-05-17 08:02] VITALS: BP 138/79; PULSE 73; TEMP 98.1; O2SAT 97
--- NOTE | 2018-05-17 09:23 | PN ---
DATE: 05/17/2018 PULMONARY NOTE SUBJECTIVE: The patient appears comfortable this morning. She is not short of breath at rest. OBJECTIVE: VITAL SIGNS (last noted in the computer): Temperature is 97.3, pulse 89, respirations 20, blood pressure 140/74. Oxygen saturation on room air is 94%. HEENT: Normocephalic, atraumatic. No JVD. CARDIOVASCULAR: Systolic ejection murmur at the lower left sternal border. Positive S3 gallop. LUNGS: Decreased breath sounds at the bases. No rhonchi. No wheezing. EXTREMITIES: Less edema. No cyanosis or clubbing. Calves are nontender to palpation. GI: Abdomen is soft, nontender and nondistended. Bowel sounds are positive. SKIN: No acute rash. NEUROLOGIC: Exam limited at the present time. IMPRESSION: 1. Acute congestive heart failure. 2. Dilated cardiomyopathy. 3. Bilateral pleural effusions. 4. Pulmonary embolism. 5. Mild anemia. PLAN: The patient appears very comfortable this morning. She is not short of breath at rest. She does state to feeling much better overall. I did discuss the case with the night nurse at length. The night nurse stated the patient had a very good night. On physical exam, there is no significant bronchospasm noted. In addition, the alveolar-arterial gradient is much less. The patient is currently on therapeutic Eliquis - for pulmonary embolism. She was also maintained on oral Lasix. Inputs by Cardiology and Internal Medicine are noted. Clinical status of the patient is significantly improved overall. However, the future status/prognosis for this patient does remain somewhat guarded. I will discuss the above with Dr. Chisholm. Bonifacio Ragland MD MTDAshlee
[2018-05-17] MEDS: Magnesium Oxide 400 mg Tab UD PO SCH (09:56)
[2018-05-17] MEDS ORDERED: Potassium Chloride 20 mEq ER Tab PO ONE (09:58)
[2018-05-17] MEDS: Nystatin-Triamcinolone Ointment(30 gm) TOP SCH (13:04)
--- NOTE | 2018-05-18 05:13 | DS ---
HISTORY OF PRESENT ILLNESS: She is going to be going today to the Transitional Care Unit. They will have a bed they have stalled. She has a CHF, pulmonary embolism, diabetes, hypertension, NSTEMI, most probably. PHYSICAL EXAMINATION: VITAL SIGNS: She has a 97.3 temperature, 89 pulse, 140/74 blood pressure, 20 respiratory rate, 94% O2 sat on room air. HEENT: Head is atraumatic, normocephalic. HEART: Regular rate. LUNGS: Decreased breath sounds, but clear. ABDOMEN: Soft. EXTREMITIES: No edema. She is breathing better. She is feeling little bit better than when she came in. Overall, she is basically improving. She is on aspirin, Coreg, Eliquis - it is now up to 10 twice a day, insulin coverage, Imdur, Lasix, Lipitor, magnesium, nystatin, Zestril. LABORATORY DATA: She has a 6.6 white count, 11.3 hemoglobin, 35.7 hematocrit with a 208 platelets. Sodium 135, potassium 3.5 - I will replace potassium, BUN 31, creatinine 1.2, need to keep an eye on her liquids, GFR is 44, last blood sugar is 273 which tightened up the blood sugars, calcium is 8.3, total bilirubin is 0.2, AST is 35, ALT is 38, alkaline phosphatase 110, total protein is 5.9. ASSESSMENT AND PLAN: She has been seen by Pulmonary, Cardiology and the j2ee architect. She had a very rough start here. She is doing much better now. She is in physical therapy and further evaluation. She is being diuresed with Lasix, replacing the potassium. We will tighten up the blood sugar. She needs physical therapy. Rick Chisholm DO
== END 2018-05-17 16:01 | DRG 280 ==
LOC: ED 10:45 → ERH 12:59 → CCU 14:16 → 2RNO 05-15 15:13 → 5RSO 05-16 18:33
PROVIDERS: ADMIT Family Medicine; ATTEND Family Medicine
PROC: 5A09457 Assistance with Respiratory Ventilation, 24-96 Consecutive Hours, Continuous Positive Airway Pressure (ICD-10-PCS; principal; 2018-05-13)
DX: I11.0 Hypertensive heart disease with heart failure (principal); I26.99 Other pulmonary embolism without acute cor pulmonale; I21.4 Non-ST elevation (NSTEMI) myocardial infarction; J96.91 Respiratory failure, unspecified with hypoxia; I16.1 Hypertensive emergency; I50.23 Acute on chronic systolic (congestive) heart failure; E11.65 Type 2 diabetes mellitus with hyperglycemia; I25.10 Atherosclerotic heart disease of native coronary artery without angina pectoris; I42.0 Dilated cardiomyopathy; D64.9 Anemia, unspecified; K59.00 Constipation, unspecified; K21.9 Gastro-esophageal reflux disease without esophagitis; E78.5 Hyperlipidemia, unspecified; Z91.14 Patient's other noncompliance with medication regimen; Z91.19 Patient's noncompliance with other medical treatment and regimen

== ENCOUNTER 2018-05-17 16:01 | Inpatient (IN) | payer MEDICARE ==
[2018-05-17 16:39] VITALS: BMI 27.6
[2018-05-17] MEDS: Magnesium Oxide 400 mg Tab UD PO SCH (17:44)
[2018-05-17] MEDS: Nystatin-Triamcinolone Ointment(30 gm) TOP SCH (17:45)
[2018-05-17] MEDS: Insulin Reg-MEDIUM-Coverage SC SCH (21:20)
[2018-05-18] MEDS: Insulin Reg-MEDIUM-Coverage SC SCH ×4 (06:51→21:14)
--- NOTE | 2018-05-18 07:17 | PN ---
DATE: 05/18/2018 PULMONARY NOTE SUBJECTIVE: The patient appears comfortable this morning. She is not short of breath at rest. PHYSICAL EXAMINATION: VITAL SIGNS: Temperature is 98, pulse 78, respirations 18, blood pressure 121/72. Oxygen saturation on nasal cannula is 95%. HEENT: Normocephalic, atraumatic. No JVD. CARDIOVASCULAR: Systolic ejection murmur at the lower left sternal border. Positive S3 gallop. LUNGS: Decreased breath sounds at the bases. No rhonchi. No wheezing. EXTREMITIES: Minimal edema. No cyanosis, no clubbing. Calves are nontender to palpation. GASTROINTESTINAL: Abdomen is soft, nontender, and nondistended. Bowel sounds are positive. SKIN: No acute rash. NEUROLOGIC: Limited at the present time. IMPRESSION: 1. Acute congestive heart failure. 2. Dilated cardiomyopathy. 3. Bilateral pleural effusions. 4. Pulmonary embolism. 5. Mild anemia. PLAN: The patient appears comfortable this morning. She is not short of breath at rest. She does state to feeling much better overall. I did discuss the case with the night nurse at length. The night nurse stated that the patient had a very good night. On physical exam, there is no bronchospasm noted. In addition, the alveolar-arterial gradient is much less. I will continue with the current treatment for pulmonary embolism - Eliquis. The patient also remains on oral Lasix. Reevaluation with Cardiology has been ordered. Clinical status of the patient is significantly improved overall. However, her future status/prognosis does remain somewhat guarded. The patient is now on the Transitional Unit - where she will participate with physical therapy. I will discuss the above with Dr. Chisholm. Bonifacio Ragland MD MTDAshlee
[2018-05-18 07:37] LABS: HEMOGLOBIN 11.1 g/dL (12.0-16.0); MEAN CELL VOLUME 80.5 fl (80.0-105.0); MEAN CORPUSCULAR HEMOGLOBIN 25.2 pg (25.0-35.0); MEAN CORPUSCULAR HGB CONC 31.4 g/dl (31.0-37.0); MEAN PLATELET VOLUME 10.9 fl (7.0-11.0); RBC 4.4 10^6/uL (3.5-6.1); RED CELL DISTRIBUTION WIDTH 13.5 % (11.5-14.5); WHITE BLOOD COUNT 7.1 10^3/ul (4.5-11.0)
[2018-05-18] MEDS: Magnesium Oxide 400 mg Tab UD PO SCH ×2 (09:55→17:42)
[2018-05-18] MEDS: Nystatin-Triamcinolone Ointment(30 gm) TOP SCH ×2 (09:55→17:43)
--- NOTE | 2018-05-18 10:09 | PN ---
DATE: 05/17/2018 CARDIOLOGY FOLLOWUP SUBJECTIVE: The patient's breathing is much improved. She is working with Physical Therapy. PHYSICAL EXAMINATION: VITAL SIGNS: Stable. NECK: Negative JVD. LUNGS: Without rales. HEART: Reveal S1, S2. EXTREMITIES: Without edema. DATA: Laboratories were reviewed. IMPRESSION: 1. Resolution of congestive heart failure. 2. Dilated cardiomyopathy. 3. Pulmonary embolism. 4. Dyspnea. Given these findings, we will continue her on her anticoagulation. In addition, at some point, after she recovers from her pulmonary embolism, the patient will need workup to rule out coronary artery disease as an explanation to her dilated cardiomyopathy. Lei Rivera MD
--- NOTE | 2018-05-18 23:16 | HP ---
REASON FOR ADMISSION: She just came from the hospital side, now she is in the Transitional Care Unit side for further care. She comes in with acute shortness of breath. HISTORY OF PRESENT ILLNESS: This is a 72-year-old white female who came in with acute shortness of breath from [place], she got sick there. She ended up having CHF and pulmonary embolus, diabetes, hypertension, dilated cardiomyopathy and now she is in need a more pulmonary, cardio care plus physical therapy. SOCIAL HISTORY: No smoking. No drinking. No drugs. ALLERGIES: NO KNOWN DRUG ALLERGIES. PAST MEDICAL HISTORY: Diabetes, CAD, and hypertension. She had a cholecystectomy in the past. She also had reflux. REVIEW OF SYSTEMS: She is doing better than the hospital side. No acute vision or hearing changes. More strength, not tired. No shortness of breath. No cough or sputum or wheezing. No chest pain or palpitations. No edema of the legs. No dyspnea on exertion. She is moving her bowels better now. No abdominal pain, nausea, vomiting, constipation, diarrhea. She urinates well. No back pain, no neck pain. No rashes or skin issues. She was dizzy, not any more. She is getting stronger. She is not as weak. The disequilibrium is improved. No sweating. No increased urination. No easy bleeding. No suicidal thoughts. She is smiling, good spirits. PHYSICAL EXAMINATION: VITAL SIGNS: She has a 98 temperature, 78 pulse, 121/72 blood pressure, 18 respiratory rate and 95% O2 sat on nasal cannula. GENERAL: She is well appearing, comfortable, smiling, no distress at all at this time. Very alert, understands why she is in the TCU for physical therapy. HEENT: Head, atraumatic, normocephalic. Extraocular muscles are intact. Throat is clear. NECK: Good range of motion. No JVD. Thyroid midline. No palpable appreciable lymphadenopathy. LUNGS: Decreased breath sounds but clear to auscultation. Fairly good inspiration now. HEART: Not tachycardic, regular rate. ABDOMEN: Soft, nontender. Positive bowel sounds. No guarding, no rebound, no CVA tenderness. EXTREMITIES: No edema. She move all four extremities. RECTAL: Clean from about two weeks ago. NEUROLOGIC: Normal speech. She is more awake, more energetic. Memory is normal. LABORATORY DATA: She has a 7.1 white count, 11.1 hemoglobin, 35.4 hematocrit, 214 platelets. Her latest blood sugar was 217. She will have labs tomorrow. ASSESSMENT AND PLAN: She will be seen by Cardiology and Pulmonology. She is back on aspirin, Coreg, Eliquis, insulin coverage, Imdur, Lasix, Lipitor, magnesium oxide, nystatin, Zestril. She will need to be put back on some of her other medications. I will add some Januvia low-dose, and we will watch her blood sugars and she is here for physical therapy, congestive heart failure, pulmonary embolism, diabetes, hypertension, and dilated cardiomyopathy. Rick Chisholm DO
[2018-05-19] MEDS: Insulin Reg-MEDIUM-Coverage SC SCH ×4 (06:42→21:23)
--- NOTE | 2018-05-19 08:08 | PN ---
DATE: 05/19/2018 PULMONARY NOTE SUBJECTIVE: The patient appears very comfortable this morning. She is not short of breath at rest. PHYSICAL EXAMINATION: VITAL SIGNS: (Last noted in the computer): Temperature is 97.8, pulse 79, respirations 18, blood pressure 114/80. Oxygen saturation on nasal cannula is 96%. HEENT: Normocephalic, atraumatic. No JVD. CARDIOVASCULAR: Systolic ejection murmur at the lower left sternal border. Positive S3 gallop. LUNGS: Decreased breath sounds at the bases. No rhonchi. No wheezing. EXTREMITIES: Less edema. No cyanosis. No clubbing. Calves are nontender to palpation. GI: Abdomen is soft, nontender and nondistended. Bowel sounds are positive. SKIN: No acute rash. NEUROLOGIC: Limited at the present time. IMPRESSION: 1. Acute congestive heart failure. 2. Dilated cardiomyopathy. 3. Bilateral pleural effusions. 4. Pulmonary embolism. 5. Mild anemia. PLAN: The patient appears very comfortable this morning. She is not short of breath at rest. She does state to feeling much better overall. I did discuss case with the night nurse at length. The night nurse stated that the patient had a very good night. On physical exam, there is no significant bronchospasm noted. In addition, there is no significant alveolar-arterial gradient. I will continue the patient on Eliquis - for the pulmonary embolism. The patient also remains on oral Lasix. Input by Dr. Rivera (Cardiology) is noted. Clinical status of the patient is certainly improved - compared to the initial presentation. However, again, the future status/prognosis for this patient does remain guarded. I will discuss the above with Dr. Chisholm. Bonifacio Ragland MD MTDD
[2018-05-19] MEDS: Magnesium Oxide 400 mg Tab UD PO SCH ×2 (09:53→17:38)
[2018-05-19] MEDS: Nystatin-Triamcinolone Ointment(30 gm) TOP SCH ×2 (09:54→17:39)
--- NOTE | 2018-05-19 13:53 | PN ---
DATE: 05/19/2018 SUBJECTIVE: She is on the Transitional Care Unit. She is doing physical therapy and getting her medications. She is on aspirin, Coreg, Eliquis, insulin, Imdur, Januvia, Lasix, Lipitor, magnesium oxide, nystatin and Zestril. She is comfortable. She is eating. She is feeling better. No shortness of breath. No congestion. Legs are not swelling. She is breathing better. Doing better with physical therapy. Starting to get strong. PHYSICAL EXAMINATION: VITAL SIGNS: She has a 97.8 temp, 77 pulse, 114/80 blood pressure, 18 respiratory rate, 96% O2 sat. HEENT: Head is atraumatic, normocephalic. HEART: Regular rate. LUNGS: Decreased breath sounds, but clear. ABDOMEN: Soft, nontender. Positive bowel sounds. EXTREMITIES: No edema. For somebody with CHF, pulmonary embolism, diabetes, hypertension and dilated cardiomyopathy at 72 years of age, she is really doing quite well. She has a 7.1 white count, 11.1 hemoglobin, 35.4 hematocrit with 214 platelets. Her blood sugar was 260. I will tighten up the blood sugars a little bit. They were 217 and 248 and 215 and 239 and 260. ASSESSMENT AND PLAN: We will check the labs tomorrow. Encourage her to eat well and see if it would improve her blood sugars better. I will increase the Januvia to 50 mg now. Rick Chisholm DO
--- NOTE | 2018-05-19 14:14 | PN ---
DATE: 05/19/2018 CARDIOLOGY FOLLOWUP SUBJECTIVE: The patient is without shortness of breath, without chest pain. OBJECTIVE: VITAL SIGNS: Blood pressure is 130/80, heart rate is in the 80s. Her pulse oximetry on room air is stable. NECK: Negative JVD. LUNGS: Without rales. HEART: Reveal S1, S2. EXTREMITIES: Without edema. DATA: Laboratories includes a glucose of 260. IMPRESSION: 1. Status post acute systolic congestive heart failure. 2. Dilated cardiomyopathy. 3. Pulmonary embolism. 4. Dyspnea, which is improved. Given these findings, the patient is currently being anticoagulated with Eliquis. With Eliquis, her blood pressure and her CHF symptoms are controlled. Lei Rivera MD
[2018-05-20] MEDS: Insulin Reg-MEDIUM-Coverage SC SCH ×4 (06:48→21:39)
[2018-05-20 07:51] LABS: HEMOGLOBIN 11.4 g/dL (12.0-16.0); MEAN CELL VOLUME 80.5 fl (80.0-105.0); MEAN CORPUSCULAR HEMOGLOBIN 25.8 pg (25.0-35.0); MEAN PLATELET VOLUME 10.9 fl (7.0-11.0); RBC 4.42 10^6/uL (3.5-6.1); RED CELL DISTRIBUTION WIDTH 13.5 % (11.5-14.5); WHITE BLOOD COUNT 7.2 10^3/ul (4.5-11.0)
--- NOTE | 2018-05-20 07:57 | PN ---
DATE: 05/20/2018 PULMONARY NOTE SUBJECTIVE: The patient appears comfortable this morning. She is not short of breath at rest. PHYSICAL EXAMINATION: VITAL SIGNS: (Last noted in the computer): Temperature is 98.4, pulse 76, respirations 18/20, blood pressure 124/70. Oxygen saturation on nasal cannula is 93-97%. HEENT: Normocephalic, atraumatic. No JVD. CARDIOVASCULAR: Systolic ejection murmur at the lower left sternal border. Positive S3 gallop. LUNGS: Decreased breath sounds at the bases. No rhonchi. No wheezing. EXTREMITIES: Less edema. No cyanosis. No clubbing. Calves are nontender to palpation. GI: Abdomen is soft, nontender and nondistended. Bowel sounds are positive. SKIN: No acute rash. NEUROLOGIC: Limited at the present time. IMPRESSION: 1. Acute congestive heart failure. 2. Dilated cardiomyopathy. 3. Bilateral pleural effusions. 4. Pulmonary embolism. 5. Mild anemia. PLAN: The patient appears very comfortable this morning. She is not short of breath at rest. She does state to feeling much better overall. I did discuss the case with the night nurse at length. The night nurse stated that the patient had a very good night. On physical exam, there is no significant bronchospasm noted. In addition, there is no significant alveolar-arterial gradient. I will continue with the Eliquis - for the pulmonary embolism. The patient also remains on oral Lasix therapy. Input by Dr. Rivera (Cardiology) is noted. Clinical status of the patient is significantly improved overall. Repeat a.m. labs are pending. However, again, the future status/prognosis for this patient does remain guarded. I will discuss the above with Dr. Chisholm. Bonifacio Ragland MD [facility]
[2018-05-20 08:34] LABS: ALB/GLOB RATIO 1.1 (1.1-1.8); ALBUMIN 3.2 g/dL (3.0-4.8); ALT/SGPT 27 U/L (7-56); AST/SGOT 28 U/L (14-36); BLOOD UREA NITROGEN 35 mg/dL (7-21); CALCIUM 8.4 mg/dL (8.4-10.5); GFR NON-AFRICAN AMERICAN 54
[2018-05-20] MEDS: Nystatin-Triamcinolone Ointment(30 gm) TOP SCH ×2 (09:36→17:33)
[2018-05-20] MEDS: Magnesium Oxide 400 mg Tab UD PO SCH ×2 (10:09→17:32)
--- NOTE | 2018-05-20 16:45 | PN ---
DATE: 05/20/2018 SUBJECTIVE: I saw her sitting out of bed to chair, about to eat lunch. She is trying physical therapy. She enjoys the oxygen and she wants the oxygen at home. She is on aspirin, Coreg, Eliquis, insulin, Imdur, Januvia, Lasix, Lipitor, magnesium oxide, nystatin, and Zestril. PHYSICAL EXAMINATION: VITAL SIGNS: She has a 98.3 temperature, 83 pulse, 108/60 blood pressure, 94% O2 sat on 2 L nasal cannula. HEENT: Head is atraumatic, normocephalic. HEART: Regular rate. LUNGS: Decreased breath sounds, but clear. ABDOMEN: Soft. EXTREMITIES: No edema. LABORATORY DATA: She had labs. She has a 7.2 white count, 11.4 hemoglobin, 35.6 hematocrit with 219 platelets. Sodium 136, potassium 3.7, BUN 35, creatinine is 1. GFR is 54. Last blood sugar is 201. Calcium is 8.4. Total bili is 0.3, AST is 28, ALT is 27, alk phos 100. Total protein is 6. I will adjust her medications. She is on aspirin; Coreg; Eliquis; insulin coverage; Imdur; Januvia, I increased from 50 to 100; Lasix; Lipitor; magnesium oxide; nystatin; and Zestril. ASSESSMENT AND PLAN: She is here for congestive heart failure, pulmonary embolus, diabetes, hypertension, dilated cardiomyopathy. We will adjust the Januvia and we will check her labs tomorrow. Encourage her to eat and do well with therapy. Rick Chisholm DO [facility] MEDICAL CENTERAshlee
[2018-05-21] MEDS: Insulin Reg-MEDIUM-Coverage SC SCH ×4 (06:54→21:53)
[2018-05-21] MEDS: Magnesium Oxide 400 mg Tab UD PO SCH ×2 (09:53→17:21)
[2018-05-21] MEDS: Nystatin-Triamcinolone Ointment(30 gm) TOP SCH ×2 (09:54→17:21)
--- NOTE | 2018-05-21 14:25 | PN ---
DATE: 05/21/2018 SUBJECTIVE: I saw her resting comfortably in bed. She is telling me that she could not sleep last night. She wants a sleeping pill. She is trying physical therapy. She is trying to eat well. I will add some Ambien at nighttime. She is on aspirin, Coreg, Eliquis, insulin coverage, Imdur, Januvia, I bumped up to 100 yesterday, Lasix, Lipitor, magnesium oxide. She is on nystatin, triamcinolone cream and Zestril. PHYSICAL EXAMINATION: VITAL SIGNS: Temperature 97.1, 83 pulse, 132/72 blood pressure, 18 respiratory rate, 96% O2 sat on nasal cannula 2 liters. GENERAL: She is comfortable in bed, otherwise pleasant. HEENT: Head: Atraumatic, normocephalic. Throat is moist. NECK: Supple. HEART: Regular rate. LUNGS: Decreased breath sounds, but clear. ABDOMEN: Soft, nontender. EXTREMITIES: No edema. She said she is trying physical therapy. LABORATORY DATA: She has 7.2 white count, 11.4 hemoglobin, 35.6 hematocrit, 290 platelets. Yesterday, she has a last blood sugar was 238. Even I increased the Januvia to 100. See what tomorrow brings and we will see if to add another diabetes medication to the list. She is here for physical therapy. She has CHF, pulmonary embolism, diabetes, hypertension, dilated cardiomyopathy and she is working on physical therapy. Rick Chisholm DO
[2018-05-22] MEDS: Insulin Reg-MEDIUM-Coverage SC SCH ×4 (06:57→22:18)
--- NOTE | 2018-05-22 08:27 | PN ---
DATE: 05/22/2018 PULMONARY NOTE DICTATION SUBJECTIVE: The patient appears comfortable this morning. She is not short of breath at rest. PHYSICAL EXAMINATION: VITAL SIGNS: (Last noted in the computer): Temperature is 97.1, pulse 79, respirations 18, blood pressure 125/70. Oxygen saturation on room air is 96%. HEENT: Normocephalic, atraumatic. No JVD. CARDIOVASCULAR: Systolic ejection murmur at the lower left sternal border. Positive S3 gallop. LUNGS: Decreased breath sounds at the bases. No rhonchi. No wheezing. EXTREMITIES: Minimal/less edema. No cyanosis or clubbing. Calves are nontender to palpation. GI: Abdomen is soft, nontender and nondistended. Bowel sounds are positive. SKIN: No acute rash. NEUROLOGIC: Exam limited at the present time. IMPRESSION: 1. Acute congestive heart failure. 2. Dilated cardiomyopathy. 3. Bilateral pleural effusions. 4. Pulmonary embolism. 5. Mild anemia. PLAN: The patient appears very comfortable this morning. She is not short of breath at rest. She does state to feeling much better overall. On physical exam, there is no significant bronchospasm noted. In addition, the oxygen saturation on room air is now 96%. The patient remains on Eliquis - for her pulmonary embolism. She also remains on oral Lasix therapy. Input by Cardiology is noted. Clinical status of the patient is significantly improved overall. However, again, her future status/prognosis does remain somewhat guarded. I will discuss the above with Dr. Chisholm. Bonifacio Ragland MD [facility]
[2018-05-22] MEDS: Magnesium Oxide 400 mg Tab UD PO SCH ×2 (09:40→17:28)
[2018-05-22] MEDS: Nystatin-Triamcinolone Ointment(30 gm) TOP SCH ×2 (09:41→17:28)
--- NOTE | 2018-05-22 11:58 | PN ---
DATE: 05/22/2018 SUBJECTIVE: She is resting comfortably in the CCU. She is on Ambien, which helped her sleep, aspirin, Coreg, Eliquis, insulin, Imdur, Januvia, Lasix, Lipitor, magnesium oxide, nystatin and Zestril. She is eating well. She is working well with therapy. PHYSICAL EXAMINATION: VITAL SIGNS: She has 97.1 temp, 85 pulse, 134/69 blood pressure, 18 respiratory rate and 96% O2 sat on room air. HEENT: Head is atraumatic, normocephalic. HEART: Regular rate. LUNGS: Clear to auscultation. ABDOMEN: Soft, nontender, positive bowel sounds. EXTREMITIES: Have no edema. For the past part, she is lying. She is working hard in therapy. LABORATORY DATA: She has a 7.2 white count, 11.4 hemoglobin, 219 platelets. She has last blood sugar of 190, to continue with physical therapy and care. PLAN: We will check her labs tomorrow and hope that she continue to improve with therapy. Rick Chisholm DO
--- NOTE | 2018-05-22 13:01 | PN ---
DATE: 05/22/2018 CARDIOLOGY FOLLOWUP SUBJECTIVE: The patient is in the TCU, participating in physical therapy. PHYSICAL EXAMINATION: VITAL SIGNS: Blood pressure is 134/69, heart rate is in the 80s. NECK: Negative JVD. LUNGS: Without rales. HEART: Revels S1, S2. EXTREMITIES: Without edema. LABORATORY DATA: Hemoglobin is 11.4. Chemistries: Sugar is 248. IMPRESSION: 1. Status post pulmonary embolism. 2. Status post congestive heart failure. 3. Dilated cardiomyopathy. 4. Diabetes mellitus. 5. Hypertension. PLAN: Given these findings, the patient is doing well on her Eliquis. We will arrange for an outpatient stress test a week after discharge. Lei Rivera MD
[2018-05-23] MEDS: Insulin Reg-MEDIUM-Coverage SC SCH ×4 (06:30→21:02)
[2018-05-23 07:12] LABS: HEMOGLOBIN 11.1 g/dL (12.0-16.0); MEAN CELL VOLUME 80.5 fl (80.0-105.0); MEAN CORPUSCULAR HEMOGLOBIN 25.5 pg (25.0-35.0); MEAN CORPUSCULAR HGB CONC 31.7 g/dl (31.0-37.0); MEAN PLATELET VOLUME 10.6 fl (7.0-11.0); RBC 4.35 10^6/uL (3.5-6.1); RED CELL DISTRIBUTION WIDTH 13.6 % (11.5-14.5); WHITE BLOOD COUNT 7.7 10^3/ul (4.5-11.0)
[2018-05-23 07:33] LABS: ALBUMIN 3.1 g/dL (3.0-4.8); CALCIUM 8.5 mg/dL (8.4-10.5)
--- NOTE | 2018-05-23 07:43 | PN ---
DATE: 05/23/2018 PULMONARY NOTE SUBJECTIVE: The patient appears comfortable this morning. She is not short of breath at rest. PHYSICAL EXAMINATION: VITAL SIGNS: (Last noted in the computer): Temperature is 98.2, pulse 81, respirations 18, blood pressure 127/74. Oxygen saturation on room air is 98%. HEENT: Normocephalic, atraumatic. No JVD. CARDIOVASCULAR: Systolic ejection murmur at the lower left sternal border. Positive S3 gallop. LUNGS: Decreased breath sounds at the bases. No rhonchi. No wheezing. EXTREMITIES: Less edema. No cyanosis or clubbing. Calves are nontender to palpation. GI: Abdomen is soft, nontender and nondistended. Bowel sounds are positive. SKIN: No acute rash. NEUROLOGIC: Limited at the present time. IMPRESSION: 1. Acute congestive heart failure. 2. Dilated cardiomyopathy. 3. Bilateral pleural effusions. 4. Pulmonary embolism. 5. Mild anemia. PLAN: The patient appears comfortable this morning. She is not short of breath at rest. She does state to feeling much better overall. On physical exam, there is no significant bronchospasm noted. In addition, the oxygen saturation on room air is now 98%. The patient remains on Eliquis - for the pulmonary embolism. The patient also remains on oral Lasix therapy. Input by Cardiology (Dr. Rivera) is noted. Clinical status of the patient is significantly improved - compared to the initial presentation. However, again, the future status/prognosis for this patient does remain guarded. I will discuss the above with Dr. Chisholm. Bonifacio Ragland MD [facility]
[2018-05-23] MEDS: Magnesium Oxide 400 mg Tab UD PO SCH ×2 (10:30→17:59)
[2018-05-23] MEDS: Nystatin-Triamcinolone Ointment(30 gm) TOP SCH ×2 (10:30→18:00)
--- NOTE | 2018-05-23 14:29 | PN ---
DATE: 05/23/2018 SUBJECTIVE: She is resting in bed. She is getting physical therapy. She is here for CHF, PE and needs physical therapy. MEDICATIONS: She is on Ambien, Aspirin, Coreg, insulin, Imdur, Januvia, Lasix, Lipitor, magnesium, nystatin and Zestril. PHYSICAL EXAMINATION: VITAL SIGNS: 98.2 temp, 81 pulse, 127/74 blood pressure, 18 respiratory rate, 98% O2 sat on room air. HEENT: Head is atraumatic, normocephalic. HEART: Regular rate. LUNGS: Decreased breath sounds, but clear. ABDOMEN: Soft. EXTREMITIES: No edema. She definitely improved with the CHF and the breathing and the PE and I think being on these medications, she is improving. LABORATORY DATA: She has a 7.7 white count, 11.1 hemoglobin, 35 hematocrit with 208 platelets. She has a 136 sodium, potassium 4.1, BUN 34, creatinine 1.1, GFR is 49, sugar is 183, calcium is 8.5, total bili is 0.3, AST is 20, ALT is 23, alk phos 112, protein 6.2, albumin is 3.1. ASSESSMENT AND PLAN: She is probably going to need to have a hospital bed because she is going to need have it. The patient requires the head of the bed to be elevated more than 30 degrees most of the time due to congestive heart failure that is why when she lies flat she will not be short of breath anymore. She is also being seen by Cardio and Pulmonary. She is status post pulmonary embolism, congestive heart failure. She is on oral Lasix. We will continue with the Eliquis and continue physical therapy. Rick Chisholm DO
[2018-05-24] MEDS: Insulin Reg-MEDIUM-Coverage SC SCH ×4 (07:08→21:48)
--- NOTE | 2018-05-24 07:57 | PN ---
DATE: 05/24/2018 PULMONARY NOTE SUBJECTIVE: The patient appears very comfortable this morning. She is not short of breath at rest. PHYSICAL EXAMINATION: VITAL SIGNS: (Last noted in the computer): Temperature is 98.2, pulse 81, respirations 18, blood pressure 128/68. Oxygen saturation on room air is 97%. HEENT: Normocephalic, atraumatic. No JVD. CARDIOVASCULAR: Systolic ejection murmur at the lower left sternal border. Positive S3 gallop. LUNGS: Decreased breath sounds at the bases. Otherwise clear. EXTREMITIES: Less edema. No cyanosis. No clubbing. Calves are nontender to palpation. GI: Abdomen is soft, nontender and nondistended. Bowel sounds are positive. SKIN: No acute rash. NEUROLOGIC: Limited at the present time. IMPRESSION: 1. Acute congestive heart failure. 2. Dilated cardiomyopathy. 3. Bilateral pleural effusions. 4. Pulmonary embolism. 5. Mild anemia. PLAN: The patient appears very comfortable this morning. She is not short of breath at rest. She does state to feeling much better overall. On physical exam, there is no bronchospasm noted. In addition, there is no significant alveolar-arterial gradient. The patient remains on Eliquis - for her pulmonary embolism. The patient also remains on oral Lasix therapy. Input by Cardiology is noted. Clinical status of the patient is significantly improved overall. However, again, the future status/prognosis for this patient does remain guarded. I will discuss the above with Dr. Chisholm. Bonifacio Ragland MD MTDAshlee
--- NOTE | 2018-05-24 09:58 | PN ---
DATE: 05/24/2018 SUBJECTIVE: She is resting comfortably in bed. She is getting physical therapy. She is doing better. She is on Ambien, aspirin, Coreg, Eliquis, Imdur, Januvia, Lasix, Lipitor, magnesium oxide, nystatin powder and Zestril. We are working on getting her to home, I think, in the next 24 hours as per the social media executive and the Transitional Care Unit, but she definitely improved. She was here for CHF and pulmonary embolism. PHYSICAL EXAMINATION: VITAL SIGNS: She has 98.2 temp, 81 pulse, 128/68 blood pressure, 18 respiratory rate, 97% O2 sat on room air. HEENT: Head is atraumatic, normocephalic. HEART: Regular rate. LUNGS: Clear to auscultation. ABDOMEN: Soft. EXTREMITIES: No edema. LABORATORY DATA: She has 7.7 white count, 11.1 hemoglobin, 208 platelets. Sodium 136, potassium 4.1, BUN 34, creatinine 1.1 which is about the same. Sugar 172. AST is 20, ALT is 23, alkaline phosphatase is 100, total protein 6.2. She is being seen by Pulmonary. We will discharge in the next 24 hours as per social media executive and she needs medications she goes home, Pharmacy will call me, but hopefully she is going to have another good day of therapy and we will discharge her tomorrow. Rick Chisholm DO MTDD
[2018-05-24] MEDS: Magnesium Oxide 400 mg Tab UD PO SCH ×2 (10:28→17:31)
[2018-05-24] MEDS: Nystatin-Triamcinolone Ointment(30 gm) TOP SCH ×2 (10:30→17:32)
[2018-05-24 16:55] VITALS: O2SAT 94
[2018-05-25] MEDS: Insulin Reg-MEDIUM-Coverage SC SCH ×2 (06:55→12:40)
--- NOTE | 2018-05-25 08:03 | PN ---
DATE: 05/25/2018 PULMONARY NOTE SUBJECTIVE: The patient appears very comfortable this morning. She is not short of breath at rest. PHYSICAL EXAMINATION: VITAL SIGNS: Temperature is 98.1, pulse 80, respirations 18, blood pressure 150/98. Oxygen saturation on room air is 94-95%. HEENT: Normocephalic, atraumatic. No JVD. CARDIOVASCULAR: Systolic ejection murmur at the lower left sternal border. Questionable S3 gallop. LUNGS: Decreased breath sounds at the bases. Otherwise clear. EXTREMITIES: Much less edema. No cyanosis or clubbing. Calves are nontender to palpation. GI: Abdomen is soft, nontender and nondistended. Bowel sounds are positive. SKIN: No acute rash. NEUROLOGIC: Limited at the present time. IMPRESSION: 1. Acute congestive heart failure. 2. Dilated cardiomyopathy. 3. Bilateral pleural effusions. 4. Pulmonary embolism. 5. Mild anemia. PLAN: The patient appears very comfortable this morning. She is not short of breath at rest. She does state to feeling much, much better overall. On physical exam, there is no bronchospasm noted. In addition, there is no significant alveolar-arterial gradient. The patient does remain on Eliquis - for her pulmonary embolism. The patient also remains on oral Lasix. Input by Cardiology is noted. Clinical status of the patient is significantly improved overall. However, again, the future status/prognosis for this patient does remain guarded. The patient is for discharge in the near future. I did give her my card/information for a followup appointment - as an outpatient. I will discuss the above with Dr. Chisholm. Bonifacio Ragland MD [facility]
[2018-05-25] MEDS: Magnesium Oxide 400 mg Tab UD PO SCH (10:04)
[2018-05-25] MEDS: Nystatin-Triamcinolone Ointment(30 gm) TOP SCH (10:08)
[2018-05-25 10:09] VITALS: BP 145/90; PULSE 78
[2018-05-25 10:19] VITALS: RESP 16; TEMP 98.2
--- NOTE | 2018-05-25 15:16 | DS ---
SUBJECTIVE: The patient is resting comfortably in bed. She is going to the home today. She is very happy about that, feeling much better. She is on Ambien, aspirin, Coreg, Eliquis, Imdur, Januvia, Lasix, Lipitor, magnesium, nystatin and Zestril. Those are the medications she is going to go home on. OBJECTIVE: VITAL SIGNS: She has a 98.1 temperature, 80 pulse, 132/73 blood pressure, 94% O2 sat on room air. HEENT: Head is atraumatic, normocephalic. HEART: Regular rate. LUNGS: Decreased breath sounds, but clear. ABDOMEN: Soft. EXTREMITIES: No edema. DATA: She has a 7.7 white count, 11.1 hemoglobin, 208 platelets. Last blood sugar was 185. Sodium 136, potassium 4.1, BUN is 34, creatinine 1.1. She is about the same. She has a 183 sugar. Calcium is 8.5, AST is 20, ALT is 23, alk phos 100. She was here for numerous reasons. She had a CHF and pulmonary embolus and hopefully, she will continue to do well on the Eliquis. She will be followed up in the outpatient with me on a house call, she will call. Rick Chisholm DO
== END 2018-05-25 15:20 | disposition home health service (06) | DRG 291 ==
LOC: TRCU 16:01
PROVIDERS: ADMIT Family Medicine; ATTEND Family Medicine
PROC: F07Z9FZ Gait Training/Functional Ambulation Treatment using Assistive, Adaptive, Supportive or Protective Equipment (ICD-10-PCS; principal; 2018-05-19)
PROC: F07Z8FZ Transfer Training Treatment using Assistive, Adaptive, Supportive or Protective Equipment (ICD-10-PCS; 2018-05-19)
PROC: F07L6YZ Therapeutic Exercise Treatment of Musculoskeletal System - Lower Back / Lower Extremity using Other Equipment (ICD-10-PCS; 2018-05-19)
PROC: F08Z2ZZ Grooming/Personal Hygiene Treatment (ICD-10-PCS; 2018-05-19)
PROC: F08Z1FZ Dressing Techniques Treatment using Assistive, Adaptive, Supportive or Protective Equipment (ICD-10-PCS; 2018-05-19)
PROC: F08Z0FZ Bathing/Showering Techniques Treatment using Assistive, Adaptive, Supportive or Protective Equipment (ICD-10-PCS; 2018-05-19)
DX: I11.0 Hypertensive heart disease with heart failure (principal); I50.21 Acute systolic (congestive) heart failure; I26.99 Other pulmonary embolism without acute cor pulmonale; I42.0 Dilated cardiomyopathy; E11.9 Type 2 diabetes mellitus without complications; D64.9 Anemia, unspecified; I25.10 Atherosclerotic heart disease of native coronary artery without angina pectoris; K21.9 Gastro-esophageal reflux disease without esophagitis; Z79.4 Long term (current) use of insulin; Z79.82 Long term (current) use of aspirin

== ENCOUNTER 2018-06-14 16:03 | Inpatient (IN) | payer MEDICARE, OTHER ==
--- NOTE | 2018-06-14 16:39 | ED PDOC ---
Arrival/HPI - General Chief Complaint: Weakness/Neurological Deficit Time Seen by Provider: 06/14/18 16:22 Historian: Patient - History of Present Illness Narrative History of Present Illness (Text): 06/14/18 16:39 Patient is a 72 y/o female who presents to the Emergency department complaining of weight gain and worsening of lower extremity edema. Patient reports experiencing lower extremity edema for the past 2 days, and is part of a monitoring service that notified her to gaining 5lb recently. She called her PMD today, who instructed her to come to the Emergency department for evaluation. She had a recent echo which showed LVEF of 35%. She currently denies any chest pain, shortness of breath, or abdominal pain. Patient denies fevers, chills, cough,nausea, vomiting, diarrhea, back pain, neck pain, headache, dizziness, or any other complaint. Of note patient is on Eliquis for recent pulmonary embolism. PMD: . Time/Duration: < week Symptom Onset: Gradual Symptom Course: Worsening Context: Home Past Medical History - Provider Review Nursing Documentation Reviewed: Yes - Reproductive Menopause: Yes - Cardiac Hx Cardiac Disorders: Yes Hx Congestive Heart Failure: Yes Hx Hypertension: Yes - Pulmonary Hx Respiratory Disorders: No - Neurological Hx Neurological Disorder: No - HEENT Hx HEENT Disorder: No - Renal Hx Renal Disorder: No - Endocrine/Metabolic Hx Diabetes Mellitus Type 2: Yes - Hematological/Oncological Hx Blood Disorders: No - Integumentary Hx Dermatological Disorder: Yes Other/Comment: multiple small red areas of skin to right knee and lower right leg, thick toenails dry skin feet, ble +2 pitting edema, scratch feliz to r arm and lle - Musculoskeletal/Rheumatological Hx Arthritis: Yes - Gastrointestinal Hx Gastrointestinal Disorders: (reflux) - Genitourinary/Gynecological Hx Genitourinary Disorders: No Hx Reproductive Disorders: No - Psychiatric Hx Psychophysiologic Disorder: Yes Hx Anxiety: Yes Hx Substance Use: No - Surgical History Hx Cholecystectomy: Yes - Anesthesia Hx Anesthesia: Yes Hx Anesthesia Reactions: No Hx Malignant Hyperthermia: No Family/Social History - Physician Review Nursing Documentation Reviewed: Yes Family/Social History: No Known Family HX Smoking Status: Never Smoked Hx Alcohol Use: No Hx Substance Use: No Allergies/Home Meds Allergies/Adverse Reactions: Allergies No Known Allergies Allergy (Verified 06/14/18 16:13) Home Medications: Home Meds Medication Instructions Recorded Confirmed Metoprolol Succinate [Toprol Xl] 50 mg PO DAILY 05/12/18 06/14/18 Valsartan/Hydrochlorothiazide 1 tab PO DAILY 05/12/18 06/14/18 [Valsartan-Hctz 320-25 mg Tab] amLODIPine [Norvasc] 5 mg PO DAILY 05/12/18 06/14/18 metFORMIN [glucOPHAGE] 1,000 mg PO BID 05/12/18 06/14/18 Apixaban [Eliquis] 2 tab PO BID 05/17/18 06/14/18 Nystatin/Triamcinolone [Mycolog 1 oin TP BID 06/14/18 06/14/18 Ointment] Rosuvastatin Calcium [Crestor] 20 mg PO DAILY 06/14/18 06/14/18 SITagliptin [Januvia] 50 mg PO DAILY 06/14/18 06/14/18 Review of Systems - Review of Systems Constitutional: Weight Change (weight gain). absent: Fevers Respiratory: absent: SOB, Cough Cardiovascular: Edema. absent: Chest Pain, Palpitations Gastrointestinal: absent: Abdominal Pain, Diarrhea, Nausea, Vomiting Musculoskeletal: absent: Back Pain, Neck Pain Skin: Skin Lesions (redness to L foot). absent: Rash Neurological: absent: Headache, Dizziness Physical Exam Vital Signs Reviewed: Yes Vital Signs Temp Pulse Resp BP Pulse Ox 06/14/18 16:36 97.7 F 87 15 140/68 99 Temperature: Afebrile Blood Pressure: Normal Pulse: Regular Respiratory Rate: Normal Appearance: Positive for: Well-Appearing Mental Status: Positive for: Alert and Oriented X 3 - Systems Exam Head: Present: Atraumatic, Normocephalic Pupils: Present: PERRL Extroacular Muscles: Present: EOMI Conjunctiva: Present: Normal Mouth: Present: Moist Mucous Membranes Neck: Present: Normal Range of Motion Respiratory/Chest: Present: Clear to Auscultation, Decreased Breath Sounds. No: Good Air Exchange (decreased air entry.), Respiratory Distress, Accessory Muscle Use Cardiovascular: Present: Regular Rate and Rhythm, Normal S1, S2. No: Murmurs Abdomen: No: Tenderness, Distention, Peritoneal Signs Back: Present: Normal Inspection Upper Extremity: Present: Normal Inspection. No: Cyanosis, Edema Lower Extremity: Present: Edema (2+ bilateral pitting edema), Neurovascularly Intact, Other (scant erythema to distal L foot). No: Normal Inspection Neurological: Present: GCS=15, CN II-XII Intact, Speech Normal Skin: Present: Warm, Dry, Normal Color. No: Rashes Psychiatric: Present: Alert, Oriented x 3, Normal Insight, Normal Concentration Medical Decision Making ED Course and Treatment: 06/14/18 16:39 Impression: 72 year old female who is complaining of recent weight gain, and worsening lower extremity edema that started the past 2 days. Plan: -- EKG -- Aspirin -- Lasix -- Urinalysis -- Reassess and disposition Prior Visits: Notes and results from previous visits were reviewed. Progress Notes: 06/14/18 16:19 EKG shows NSR at 85bpm with normal intervals and no st changes. 06/14/18 16:52 Chest X-ray: No active disease. 06/14/18 17:[address] Chisholm who evaluated patient at bedside. Agrees with diuresis and observation for chf. Due to elevated bnp, gave lasix. Consulted Dr. Rivera. Dr. Chisholm requesting 1 dose of rocephin for erythema to foot. - Lab Interpretations I have reviewed the lab results: Yes - RAD Interpretation Radiology Orders: 06/14/18 16:22 CHEST PORTABLE [RAD] Stat Medical Billing Instructor: ED Physician - EKG Interpretation Interpreted by ED Physician: Yes Type: 12 lead EKG - Scribe Statement The provider has reviewed the documentation as recorded by the Scribe Elpidio Reyes Provider Scribe Attestation: All medical record entries made by the Scribe were at my direction and personall y dictated by me. I have reviewed the chart and agree that the record accurately reflects my personal performance of the history, physical exam, medical decision making, and the department course for this patient. I have also personally directed, reviewed, and agree with the discharge instructions and disposition. Disposition/Present on Arrival - Present on Arrival Any Indicators Present on Arrival: No History of DVT/PE: No History of Uncontrolled Diabetes: Yes Urinary Catheter: No History of Decub. Ulcer: No History Surgical Site Infection Following: None - Disposition Have Diagnosis and Disposition been Completed?: Yes Diagnosis: Congestive heart failure Disposition: HOSPITALIZED Disposition Time: 17:18 Patient Plan: Observation Patient Problems: Current Active Problems Problem Status Onset Congestive heart failure Acute Condition: FAIR Discharge Instructions (ExitCare): Heart Failure (ED) Referrals: Rick Chisholm DO [Primary Care Provider] - Follow up with primary Forms: [email or web address] ([email or web address]) (Turkish)
--- NOTE | 2018-06-14 16:41 | RAD ---
Date of service: 06/14/2018 HISTORY: leg edema COMPARISON: 05/15/2018 FINDINGS: LUNGS: No active pulmonary disease. PLEURA: No significant pleural effusion identified, no pneumothorax apparent. CARDIOVASCULAR: No aortic atherosclerotic calcification present OSSEOUS STRUCTURES: No significant abnormalities. VISUALIZED UPPER ABDOMEN: Normal. OTHER FINDINGS: None. IMPRESSION: No active disease.
[2018-06-14 16:54] LABS: BASO # 0.02 K/mm3 (0.0-2.0); BASO % 0.2 % (0.0-3.0); EOS # 0.2 (0.0-0.7); EOS % 1.6 % (1.5-5.0); GRAN # 8.51 (1.4-6.5); GRAN % 78.8 % (50.0-68.0); LYMPH # 1.5 (1.2-3.4); LYMPH % 13.8 % (22.0-35.0); MEAN CELL VOLUME 80.7 fl (80.0-105.0); MEAN CORPUSCULAR HEMOGLOBIN 25.5 pg (25.0-35.0); MEAN CORPUSCULAR HGB CONC 31.6 g/dl (31.0-37.0); MEAN PLATELET VOLUME 10.1 fl (7.0-11.0); MONO # 0.6 (0.1-0.6); MONO % 5.6 % (1.0-6.0); RBC 4.71 10^6/uL (3.5-6.1); RED CELL DISTRIBUTION WIDTH 12.8 % (11.5-14.5); WHITE BLOOD COUNT 10.8 10^3/ul (4.5-11.0)
[2018-06-14 17:06] LABS: ALB/GLOB RATIO 1.2 (1.1-1.8); ALBUMIN 4.1 g/dL (3.0-4.8); ALT/SGPT 22 U/L (7-56); AST/SGOT 17 U/L (14-36); BLOOD UREA NITROGEN 57 mg/dL (7-21); CALCIUM 9.2 mg/dL (8.4-10.5); GFR NON-AFRICAN AMERICAN 40; LIPASE 332 U/L (23-300)
[2018-06-14 17:16] LABS: B-TYPE NATRIURETIC PEPTIDE 3710 pg/mL (0-450); TROPONIN I < 0.01 ng/mL
[2018-06-14] MEDS ORDERED: cefTRIAXone 1 gm 1 GM/100 ML BAG IVPB STA (18:00)
[2018-06-14 20:47] LABS: PH,URINE >=9.0 (4.7-8.0); URINE BILIRUBIN NEGATIVE (NEGATIVE); URINE BLOOD MODERATE (NEGATIVE); URINE GLUCOSE (UA) NEGATIVE (NEGATIVE); URINE LEUKOCYTE ESTERASE NEGATIVE Leu/uL (NEGATIVE); URINE PROTEIN 30 mg/dL (<30 mg/dL)
[2018-06-14 20:49] LABS: URINE APPEARANCE CLOUDY (CLEAR); URINE COLOR LIGHT YELLOW (YELLOW)
[2018-06-14 21:28] LABS: URINE EPITHELIAL CELLS 0 - 2 /hpf (0-5); URINE WBC 0 - 2 /hpf (0-6)
[2018-06-14 21:29] LABS: URINE BACTERIA LARGE (NEG); URINE TRIPLE PHOSPHATE CRYSTAL MOD /hpf
[2018-06-14 22:20] VITALS: BMI 24.3
[2018-06-14] MEDS: Insulin Reg-MEDIUM-Coverage SC SCH (22:20)
[2018-06-15] MEDS: Insulin Reg-MEDIUM-Coverage SC SCH ×7 (07:50→21:52)
--- NOTE | 2018-06-15 08:27 | HP ---
HISTORY OF PRESENT ILLNESS: I was called down to the emergency room to admit her to the hospital. She is a 72-year-old female who complained of weight gain, especially the lower extremities with lots of swelling and also her left foot up into the instep is quite red and inflamed. She was also notified there was a 5-pound weight gain and she was told to go to the emergency room. She had a recent echo showing a left ventricular ejection fraction of 35%, was in for the swelling and the weight gain. She said she is doing fairly well except for the redness of the left foot. No shortness of breath or chest pain. PAST MEDICAL HISTORY: She has hypertension, CHF, type 2 diabetes, multiple small red areas of skin to the right knee and the lower right leg, thick toenails, swelling of the feet. She has arthritis, reflux, anxiety, insomnia. She had a cholecystectomy. FAMILY HISTORY: Diabetes in the family. SOCIAL HISTORY: Never smoked. No alcohol. No drugs. ALLERGIES: NO KNOWN DRUG ALLERGIES. MEDICATIONS: She takes Toprol, valsartan, hydrochlorothiazide, Norvasc, Glucophage, Eliquis, nystatin, Crestor and Januvia. REVIEW OF SYSTEMS: There is a 5-pound weight gain. No fevers. No shortness of breath or cough. No chest pain, no palpitations. There is edema of both legs, redness to the left leg. Also red dots to the right knee and down. No abdominal pain, nausea, vomiting, constipation or diarrhea. There is no back pain or neck pain. Skin lesions, redness to the left foot. No headaches or dizziness. PHYSICAL EXAMINATION: VITAL SIGNS: She has a 97.7 temperature, 87 pulse, 15 respiratory rate, 140/68 blood pressure, 99% sat on room air. GENERAL: She is fairly well appearing, swollen legs, redness to the left foot, alert and oriented x3. HEENT: Head is atraumatic, normocephalic. Extraocular muscles are intact. Pupils equal, reactive to light and accommodation. Throat is moist. NECK: Supple. HEART: Regular rate. Normal S1, S2. LUNGS: Decreased breath sounds bilaterally. Fair effort, but no wheezes, rhonchi or rales. ABDOMEN: Soft, nontender. Positive bowel sounds. EXTREMITIES: Have edema, +3/4 pitting edema in bilateral lower extremities. She needs to be diuresed. Also redness like early cellulitis in the left foot. NEUROLOGIC: GCS is 15. Cranial nerves II-XII grossly intact. Speech is normal. Alert and oriented x3. SKIN: She has got left foot redness. LYMPHS: Thyroid midline. No palpable appreciable lymphadenopathy. LABORATORY DATA: She had multiple tests. The urine showed moderate blood, negative leukocytes. She has 141 sodium, potassium 4.2, BUN 57, creatinine 1.3 with acute kidney injury. GFR is 40. Sugar 292, quite high. Calcium is 9.2; phosphorus 4.4; magnesium 3.6, high. She is on magnesium, I will stop it. Total bili is 0.4. AST is 17, ALT is 22, alk phos 150. Lactate dehydrogenase is 563. Total creatine kinase is 54. Troponin I is less than 0.01. BNP was quite high at 3710. Total protein 7.6, albumin is 4.1, globulin 3.5, lipase is very high at 332. No abdominal pain. White count is 10.8, hemoglobin 12, hematocrit 38, platelets are 279. There is a venous Doppler that is pending because of the edema of the legs. No active disease on chest x-ray. She is here for CHF, left foot redness, early cellulitis, acute kidney injury and diabetes. Hopefully, we could diurese her and help to feel better soon. She will have a consult with Podiatry, Cardiology, and Renal. Rick Chisholm DO
--- NOTE | 2018-06-15 08:36 | PN ---
DATE: 06/15/2018 SUBJECTIVE: I saw Tammy resting comfortably in bed. She had a rough night. Legs still hurt her. MEDICATIONS: She is on Ambien, aspirin, Coreg, Diovan, Eliquis, Glucophage, insulin, HydroDIURIL, Imdur, Januvia, Lasix, Lipitor, Norvasc, Rocephin and Toprol. PHYSICAL EXAMINATION: VITAL SIGNS: She has a 98.2 temp, 77 pulse, 139/67 blood pressure, 20 respiratory rate, 97% O2 sat on room air. HEENT: Head is atraumatic, normocephalic. HEART: Regular rate. LUNGS: Decreased breath sounds, but clear. ABDOMEN: Soft. EXTREMITIES: The left foot is still red, inflamed, looks cellulitic. She has a little bit of CHF, but she diuresed very well. LABORATORY DATA: Her lab tests show 10.8 white count, 12 hemoglobin, 38 hematocrit with a 279 platelets. She has a 141 sodium, potassium 4.2, BUN is 67, creatinine is 1.3. Waiting for Renal to come in because she has a little bit of acute kidney injury. The blood sugar is a little bit high, 292, 290 and 310. I will adjust her insulins and the medications for diabetes. Calcium 9.2, phosphorus is 4.4, magnesium 3.6. I stopped her magnesium. Alk phos is 150, lactate dehydrogenase is 553, troponin I is less than 0.01, BNP was high at 3710, lipase is also high at 332. I am waiting for labs to come back from this morning. They are not back yet. She had large bacteria, moderate blood in the urine. ASSESSMENT AND PLAN: The extremity ultrasound is pending. Physical therapy is pending, but she might need physical therapy. Labs are pending. There are consults for Cardiology, Podiatry, Renal and Infectious Disease. I am hoping that if she does well, we could possibly discharge her later today if she does well with therapy. She has acute kidney injury, possibly from diabetes. I will adjust the medication. Left foot cellulitis, congestive heart failure. If I cannot try and discharge her later, hopefully the consults will call me and let me know of their plans. We will continue with the IV Rocephin. Rcik DO Phan
--- NOTE | 2018-06-15 09:07 | CP.PCM.CON ---
History of Present Illness - History of Present Illness History of Present Illness: this patient whole is 72 years of age female I was called to see her for consultation for abnormal kidney function. Serum creatinine in the range of 1.3. This patient admitted apparently with left foot pain and some changes and discoloration and redness. And the patient apparently she has significant history of CHF and she has a previous admission with serum creatinine baseline at that time the lowest was 1.1. No significant shortness of breath or difficulty breathing at the present. No nausea no vomiting patient complaining of nocturia 1 but no dysuria. Past medical history H/O of congestive heart failure with multiple admissions. History of diabetes History of hypertension Social history not contributory Review of system as noted below Review of Systems - Constitutional Constitutional: Anorexia. absent: Chills, Excessive Sweating - EENT Eyes: absent: Blind Spots, Exophthalmos Ears: absent: Ear Discharge Nose/Mouth/Throat: absent: Nasal Trauma - Cardiovascular Cardiovascular: Dyspnea on Exertion. absent: Chest Pain, Edema - Respiratory Respiratory: Dyspnea on Exertion. absent: Hemoptysis, Chest Congestion - Gastrointestinal Gastrointestinal: absent: Abdominal Pain, Coffee Ground Emesis, Cramping - Genitourinary Genitourinary: Nocturia - Musculoskeletal Musculoskeletal: Muscle Weakness. absent: Atrophy, Numbness - Neurological Neurological: absent: Confusion, Dizziness, Numbness, Focal Weakness - Endocrine Endocrine: Fatigue - Hematologic/Lymphatic Hematologic: absent: Easy Bleeding Past Patient History - Past Social History Smoking Status: Never Smoked - CARDIAC Hx Cardiac Disorders: Yes Hx Congestive Heart Failure: Yes Hx Hypertension: Yes Hx Peripheral Edema: Yes (LEG BILAT) Other/Comment: EF--- 35% - PULMONARY Hx Respiratory Disorders: No - NEUROLOGICAL Hx Neurological Disorder: No - HEENT Hx HEENT Problems: No - RENAL Hx Chronic Kidney Disease: No - ENDOCRINE/METABOLIC Hx Diabetes Mellitus Type 2: Yes - HEMATOLOGICAL/ONCOLOGICAL Hx Blood Disorders: No - INTEGUMENTARY Hx Dermatological Problems: Yes Other/Comment: multiple small red areas of skin to right knee and lower right leg, thick toenails dry skin feet, ble +2 pitting edema, scratch feliz to r arm and lle - MUSCULOSKELETAL/RHEUMATOLOGICAL Hx Arthritis: Yes Hx Falls: Yes Hx Unsteady Gait: Yes Other/Comment: USES WALKER TO MOVE AROUND AT HOME - GASTROINTESTINAL Hx Gastrointestinal Disorders: (reflux) - GENITOURINARY/GYNECOLOGICAL Hx Genitourinary Disorders: No - PSYCHIATRIC Hx Psychophysiologic Disorder: Yes Hx Anxiety: Yes Hx Substance Use: No - SURGICAL HISTORY Hx Cholecystectomy: Yes - ANESTHESIA Hx Anesthesia: Yes Hx Anesthesia Reactions: No Hx Malignant Hyperthermia: No Meds Allergies/Adverse Reactions: Allergies Allergy/AdvReac Type Severity Reaction Status Date / Time No Known Allergies Allergy Verified 06/14/18 16:13 - Medications Medications: Current Medications Amlodipine Besylate (Norvasc) 5 mg PO DAILY [facility] Apixaban (Eliquis) 2.5 mg PO BID [facility]; Protocol Aspirin (Aspirin Chewable) 81 mg PO DAILY [facility] Atorvastatin Calcium (Lipitor) 80 mg PO DIN [facility] Carvedilol (Coreg) 6.25 mg PO BID [facility] Furosemide (Lasix) 40 mg IVP DAILY [facility] Ceftriaxone Sodium (Rocephin 1 Gram Ivpb) 1 gm in 100 mls @ 100 mls/hr IVPB DAILY [facility]; Protocol Insulin Human Regular (Humulin R Med) 0 units SC [facility]; Protocol Last Admin: 06/15/18 08:21 Dose: 1 u Insulin Human Regular (Humulin R Med) 0 units SC [facility]; Protocol Last Admin: 06/15/18 07:50 Dose: Not Given Isosorbide Mononitrate (Imdur) 60 mg PO DAILY [facility] Metformin HCl (Glucophage) 1,000 mg PO BID [facility] Metoprolol Succinate (Toprol Xl) 50 mg PO DAILY [facility] Sitagliptin Phosphate (Januvia) 50 mg PO DAILY [facility] Valsartan (Diovan) 320 mg PO DAILY [facility] Zolpidem Tartrate (Ambien) 5 mg PO [facility]; Protocol Last Admin: 06/14/18 21:59 Dose: 5 mg Physical Exam - Constitutional Appears: No Acute Distress - Eye Exam Eye Exam: Conjunctival injection - ENT Exam ENT Exam: Mucous Membranes Dry - Neck Exam Neck exam: Negative for: Lymphadenopathy - Respiratory Exam Respiratory Exam: NORMAL BREATHING PATTERN - Cardiovascular Exam Cardiovascular Exam: absent: Gallop, JVD, Rubs - GI/Abdominal Exam GI & Abdominal Exam: Normal Bowel Sounds. absent: Guarding - Extremities Exam Extremities exam: Negative for: calf tenderness - Back Exam Back exam: absent: CVA tenderness (L), CVA tenderness (R) - Neurological Exam Neurological exam: Alert - Psychiatric Exam Psychiatric exam: Normal Affect Results - Vital Signs Recent Vital Signs: Last Vital Signs Temp 98.2 F 06/15/18 06:00 Pulse 77 06/15/18 06:00 Resp 20 06/15/18 06:00 BP 139/67 06/15/18 06:00 Pulse Ox 97 06/14/18 22:40 - Labs Result Diagrams: 06/14/18 16:29 06/14/18 16:29 Labs: Laboratory Results - last 24 hr 06/14/18 06/14/18 06/14/18 16:29 16:29 16:41 WBC 10.8 D RBC 4.71 Hgb 12.0 Hct 38.0 MCV 80.7 MCH 25.5 MCHC 31.6 RDW 12.8 Plt Count 279 MPV 10.1 Gran % 78.8 H Lymph % (Auto) 13.8 L Franklin % (Auto) 5.6 Eos % (Auto) 1.6 Baso % (Auto) 0.2 Gran # 8.51 H Lymph # (Auto) 1.5 Franklin # (Auto) 0.6 Eos # (Auto) 0.2 Baso # (Auto) 0.02 Sodium 141 Potassium 4.2 Chloride 93 L Carbon Dioxide 38 H Anion Gap 14 BUN 57 H Creatinine 1.3 H Est GFR ( Amer) 49 Est GFR (Non-Af Amer) 40 POC Glucose (mg/dL) 290 H Random Glucose 292 H Calcium 9.2 Phosphorus 4.4 Magnesium 3.6 H Total Bilirubin 0.4 AST 17 ALT 22 Alkaline Phosphatase 150 H D Lactate Dehydrogenase 563 Total Creatine Kinase 54 Troponin I < 0.01 D NT-Pro-B Natriuret Pep 3710 H Total Protein 7.6 Albumin 4.1 Globulin 3.5 Albumin/Globulin Ratio 1.2 Lipase 332 H Urine Color Urine Appearance Urine pH Ur Specific Terrell Urine Protein Urine Glucose (UA) Urine Ketones Urine Blood Urine Nitrate Urine Bilirubin Urine Urobilinogen Ur Leukocyte Esterase Urine RBC Urine WBC Ur Epithelial Cells Triple Phos Crystals Urine Bacteria 06/14/18 06/14/18 06/15/18 19:40 21:00 05:45 WBC RBC Hgb Hct MCV MCH MCHC RDW Plt Count MPV Gran % Lymph % (Auto) Franklin % (Auto) Eos % (Auto) Baso % (Auto) Gran # Lymph # (Auto) Franklin # (Auto) Eos # (Auto) Baso # (Auto) Sodium Potassium Chloride Carbon Dioxide Anion Gap BUN Creatinine Est GFR ( Amer) Est GFR (Non-Af Amer) POC Glucose (mg/dL) 310 H Random Glucose Calcium Phosphorus Magnesium Total Bilirubin AST ALT Alkaline Phosphatase Lactate Dehydrogenase Total Creatine Kinase Troponin I NT-Pro-B Natriuret Pep Total Protein Albumin Globulin Albumin/Globulin Ratio Lipase 143 Urine Color Light yellow Urine Appearance Cloudy Urine pH >=9.0 Ur Specific Terrell 1.015 Urine Protein 30 H Urine Glucose (UA) Negative Urine Ketones Negative Urine Blood Moderate H Urine Nitrate Negative Urine Bilirubin Negative Urine Urobilinogen 4.0 H Ur Leukocyte Esterase Negative Urine RBC 2 - 5 Urine WBC 0 - 2 Ur Epithelial Cells 0 - 2 Triple Phos Crystals Mod Urine Bacteria Large 06/15/18 08:01 WBC RBC Hgb Hct MCV MCH MCHC RDW Plt Count MPV Gran % Lymph % (Auto) Franklin % (Auto) Eos % (Auto) Baso % (Auto) Gran # Lymph # (Auto) Franklin # (Auto) Eos # (Auto) Baso # (Auto) Sodium Potassium Chloride Carbon Dioxide Anion Gap BUN Creatinine Est GFR ( Amer) Est GFR (Non-Af Amer) POC Glucose (mg/dL) 177 H Random Glucose Calcium Phosphorus Magnesium Total Bilirubin AST ALT Alkaline Phosphatase Lactate Dehydrogenase Total Creatine Kinase Troponin I NT-Pro-B Natriuret Pep Total Protein Albumin Globulin Albumin/Globulin Ratio Lipase Urine Color Urine Appearance Urine pH Ur Specific Terrell Urine Protein Urine Glucose (UA) Urine Ketones Urine Blood Urine Nitrate Urine Bilirubin Urine Urobilinogen Ur Leukocyte Esterase Urine RBC Urine WBC Ur Epithelial Cells Triple Phos Crystals Urine Bacteria Assessment & Plan (1) BARTOLO (acute kidney injury) Assessment and Plan: 1-Rule out acute kidney injury serum creatinine baseline 1.1 now it's 1.3 with disproportion high B UN consistent with element of dehydration perhaps the cause of acute kidney injury. 2- Patient also has metabolic alkalosis CO2 in the range of 38 also do secondary to diuretics #3 hypochloremia serum chloride 93 these also consistent with diuretics induced #4 perhaps a early cellulitis of the left foot #5 diabetes mellitus #6 hypertension #7 history of congestive heart failure My recommendation Because of the metabolic alkalosis and hypochloremia I suggest to cut down on the diuretic. Patient taking Lasix and hydrochlorothiazide will go ahead and stop hydrochlorothiazide and also suggest to cut down Lasix to 20 mg temporarily may be for 1 or 2 days Spot urine for sodium osmolality and creatinine Spot urine for protein to calculate protein to creatinine ratio because she is diabetic If serum creatinine continued to rise we will consider stop Diovan and switch to something else if need to be?? Thank you for this interesting case Status: Acute (2) Metabolic alkalosis Status: Acute
--- NOTE | 2018-06-15 09:16 | US ---
HISTORY: Leg pain and swelling. Evaluate for DVT PHYSICIAN(S): Lei Kirk MD. TECHNIQUE: Duplex sonography and color-flow Doppler with graded compression were used to evaluate the deep venous systems of both lower extremities. The exam is somewhat limited by edema. FINDINGS: The visualized deep venous systems of both lower extremities are sonographically normal and compressible. Normal wave forms and augmentation are seen. There is no sonographic evidence for deep venous thrombosis in the visualized segments of both lower extremities. IMPRESSION: No sonographic evidence for deep venous thrombosis in the visualized segments of both lower extremities.
[2018-06-15] MEDS ORDERED: Metoprolol Succinate 50 mg XL Tab PO SCH (10:00)
[2018-06-15] MEDS ORDERED: Non Formulary Medication (Valsartan/Hydrochlorothiazide [Valsartan-Hctz 320-25 Mg Tab] 1 T PO SCH (10:00)
[2018-06-15] MEDS ORDERED: cefTRIAXone 1 gm 1 GM/100 ML BAG IVPB SCH (10:00)
[2018-06-15] MEDS ORDERED: Magnesium Oxide 400 mg Tab UD PO SCH (10:00)
[2018-06-15] MEDS ORDERED: Non Formulary Medication (Rosuvastatin Calcium [Crestor] 20 MG) PO SCH (10:00)
[2018-06-15] MEDS ORDERED: Enoxaparin 60 mg Syringe SC SCH (10:30)
--- NOTE | 2018-06-15 10:41 | CARD ---
APPROVED REPORT Date of service: 06/14/2018 EKG Measurement Heart [id number] <Conclusion> Normal sinus rhythm NSSTW changes
[2018-06-15] MEDS: Sodium Chloride 0.9% 1,000 ML IV SCH (11:10)
--- NOTE | 2018-06-15 12:00 | CP.PCM.CON ---
<Tessa Stroud - Last Filed: 06/15/18 13:02> History of Present Illness - History of Present Illness History of Present Illness: Podiatry consult note for Dr. Mcintosh/Dr Bojorquez, 72 yo female seen at bedside for worsening left foot pain. Patient states the pain has been present for a very long time. Denies itching sensation to the foot. Denies seeing a clinical coder or vascular doctor before. Patient states she has also gained some weight in the last month. Denies any other pedal complains. Denies f/n/v/sob/chest pain/diarrhea Past Patient History - Past Social History Smoking Status: Never Smoked - CARDIAC Hx Cardiac Disorders: Yes Hx Congestive Heart Failure: Yes Hx Hypertension: Yes Hx Peripheral Edema: Yes (LEG BILAT) Other/Comment: EF--- 35% - PULMONARY Hx Respiratory Disorders: No - NEUROLOGICAL Hx Neurological Disorder: No - HEENT Hx HEENT Problems: No - RENAL Hx Chronic Kidney Disease: No - ENDOCRINE/METABOLIC Hx Diabetes Mellitus Type 2: Yes - HEMATOLOGICAL/ONCOLOGICAL Hx Blood Disorders: No - INTEGUMENTARY Hx Dermatological Problems: Yes Other/Comment: multiple small red areas of skin to right knee and lower right leg, thick toenails dry skin feet, ble +2 pitting edema, scratch feliz to r arm and lle - MUSCULOSKELETAL/RHEUMATOLOGICAL Hx Arthritis: Yes Hx Falls: Yes Hx Unsteady Gait: Yes Other/Comment: USES WALKER TO MOVE AROUND AT HOME - GASTROINTESTINAL Hx Gastrointestinal Disorders: (reflux) - GENITOURINARY/GYNECOLOGICAL Hx Genitourinary Disorders: No - PSYCHIATRIC Hx Psychophysiologic Disorder: Yes Hx Anxiety: Yes Hx Substance Use: No - SURGICAL HISTORY Hx Cholecystectomy: Yes - ANESTHESIA Hx Anesthesia: Yes Hx Anesthesia Reactions: No Hx Malignant Hyperthermia: No Meds Allergies/Adverse Reactions: Allergies Allergy/AdvReac Type Severity Reaction Status Date / Time No Known Allergies Allergy Verified 06/14/18 16:13 - Medications Medications: Current Medications Amlodipine Besylate (Norvasc) 5 mg PO DAILY [facility] Last Admin: 06/15/18 11:11 Dose: 5 mg Apixaban (Eliquis) 2.5 mg PO BID [facility]; Protocol Aspirin (Aspirin Chewable) 81 mg PO DAILY [facility] Last Admin: 06/15/18 11:11 Dose: 81 mg Atorvastatin Calcium (Lipitor) 80 mg PO DIN [facility] Carvedilol (Coreg) 6.25 mg PO BID [facility] Last Admin: 06/15/18 11:10 Dose: 6.25 mg Enoxaparin Sodium (Lovenox) 60 mg SC DAILY [facility]; Protocol Stop: 06/15/18 18:00 Last Admin: 06/15/18 11:12 Dose: 60 mg Furosemide (Lasix) 40 mg IVP DAILY [facility] Last Admin: 06/15/18 10:52 Dose: Not Given Ceftriaxone Sodium (Rocephin 1 Gram Ivpb) 1 gm in 100 mls @ 100 mls/hr IVPB DAILY [facility]; Protocol Last Admin: 06/15/18 11:10 Dose: 100 mls/hr Sodium Chloride (Sodium Chloride 0.9%) 1,000 mls @ 50 mls/hr IV .Q20H [facility] Last Admin: 06/15/18 11:10 Dose: 50 mls/hr Insulin Human Regular (Humulin R Med) 0 units SC [facility]; Protocol Last Admin: 06/15/18 08:21 Dose: 1 u Insulin Human Regular (Humulin R Med) 0 units SC [facility]; Protocol Last Admin: 06/15/18 07:50 Dose: Not Given Isosorbide Mononitrate (Imdur) 60 mg PO DAILY [facility] Last Admin: 06/15/18 11:12 Dose: 60 mg Metformin HCl (Glucophage) 1,000 mg PO BID [facility] Last Admin: 06/15/18 11:10 Dose: 1,000 mg Metoprolol Succinate (Toprol Xl) 50 mg PO DAILY [facility] Last Admin: 06/15/18 11:11 Dose: 50 mg Sitagliptin Phosphate (Januvia) 50 mg PO DAILY [facility] Last Admin: 06/15/18 11:11 Dose: 50 mg Valsartan (Diovan) 320 mg PO DAILY [facility] Last Admin: 06/15/18 11:11 Dose: 320 mg Zolpidem Tartrate (Ambien) 5 mg PO HS [facility]; Protocol Last Admin: 06/14/18 21:59 Dose: 5 mg Physical Exam - Constitutional Appears: Well, Non-toxic, No Acute Distress - Head Exam Head Exam: ATRAUMATIC - Extremities Exam Extremities exam: Positive for: normal inspection Additional comments: Bilateral lower extremity exam: Vascular: DP/pt pulses nonpalpable b/l, TG warm to cool (cooler on left), CFT <5 secs x 10, no edema noted, pinpoint erythematous lesions noted on the dorsal aspect of the left foot derm: no IDM, no open lesions, xerosis and peeling of skin noted b/l L>R, no edema or ecchymosis noted, no clinical signs of infection ortho: pain on palpation to the left foot neuro: protective sensation grossly intact - Neurological Exam Neurological exam: Alert, Oriented x3 - Psychiatric Exam Psychiatric exam: Normal Affect, Normal Mood Results - Vital Signs Recent Vital Signs: Last Vital Signs Temp 98.2 F 06/15/18 06:00 Pulse 81 06/15/18 11:11 Resp 20 06/15/18 06:00 BP 136/78 06/15/18 11:11 Pulse Ox 97 06/14/18 22:40 - Labs Result Diagrams: 06/14/18 16:29 06/14/18 16:29 Labs: Laboratory Results - last 24 hr 06/14/18 06/14/18 06/14/18 16:29 16:29 16:41 WBC 10.8 D RBC 4.71 Hgb 12.0 Hct 38.0 MCV 80.7 MCH 25.5 MCHC 31.6 RDW 12.8 Plt Count 279 MPV 10.1 Gran % 78.8 H Lymph % (Auto) 13.8 L [place] % (Auto) 5.6 Eos % (Auto) 1.6 Baso % (Auto) 0.2 Gran # 8.51 H Lymph # (Auto) 1.5 [place] # (Auto) 0.6 Eos # (Auto) 0.2 Baso # (Auto) 0.02 Sodium 141 Potassium 4.2 Chloride 93 L Carbon Dioxide 38 H Anion Gap 14 BUN 57 H Creatinine 1.3 H Est GFR ( Amer) 49 Est GFR (Non-Af Amer) 40 POC Glucose (mg/dL) 290 H Random Glucose 292 H Uric Acid Calcium 9.2 Phosphorus 4.4 Magnesium 3.6 H Total Bilirubin 0.4 AST 17 ALT 22 Alkaline Phosphatase 150 H D Lactate Dehydrogenase 563 Total Creatine Kinase 54 Troponin I < 0.01 D NT-Pro-B Natriuret Pep 3710 H Total Protein 7.6 Albumin 4.1 Globulin 3.5 Albumin/Globulin Ratio 1.2 Lipase 332 H Urine Color Urine Appearance Urine pH Ur Specific [place] Urine Protein Urine Glucose (UA) Urine Ketones Urine Blood Urine Nitrate Urine Bilirubin Urine Urobilinogen Ur Leukocyte Esterase Urine RBC Urine WBC Ur Epithelial Cells Triple Phos Crystals Urine Bacteria 06/14/18 06/14/18 06/15/18 19:40 21:00 05:45 WBC RBC Hgb Hct MCV MCH MCHC RDW Plt Count MPV Gran % Lymph % (Auto) [place] % (Auto) Eos % (Auto) Baso % (Auto) Gran # Lymph # (Auto) [place] # (Auto) Eos # (Auto) Baso # (Auto) Sodium Potassium Chloride Carbon Dioxide Anion Gap BUN Creatinine Est GFR ( Amer) Est GFR (Non-Af Amer) POC Glucose (mg/dL) 310 H Random Glucose Uric Acid Calcium Phosphorus Magnesium Total Bilirubin AST ALT Alkaline Phosphatase Lactate Dehydrogenase Total Creatine Kinase Troponin I NT-Pro-B Natriuret Pep Total Protein Albumin Globulin Albumin/Globulin Ratio Lipase 143 Urine Color Light yellow Urine Appearance Cloudy Urine pH >=9.0 Ur Specific [place] 1.015 Urine Protein 30 H Urine Glucose (UA) Negative Urine Ketones Negative Urine Blood Moderate H Urine Nitrate Negative Urine Bilirubin Negative Urine Urobilinogen 4.0 H Ur Leukocyte Esterase Negative Urine RBC 2 - 5 Urine WBC 0 - 2 Ur Epithelial Cells 0 - 2 Triple Phos Crystals Mod Urine Bacteria Large 06/15/18 06/15/18 06/15/18 07:00 08:01 11:07 WBC RBC Hgb Hct MCV MCH MCHC RDW Plt Count MPV Gran % Lymph % (Auto) [place] % (Auto) Eos % (Auto) Baso % (Auto) Gran # Lymph # (Auto) [place] # (Auto) Eos # (Auto) Baso # (Auto) Sodium Potassium Chloride Carbon Dioxide Anion Gap BUN Creatinine Est GFR ( Amer) Est GFR (Non-Af Amer) POC Glucose (mg/dL) 177 H 201 H Random Glucose Uric Acid 9.0 H Calcium Phosphorus Magnesium Total Bilirubin AST ALT Alkaline Phosphatase Lactate Dehydrogenase Total Creatine Kinase Troponin I NT-Pro-B Natriuret Pep Total Protein Albumin Globulin Albumin/Globulin Ratio Lipase Urine Color Urine Appearance Urine pH Ur Specific [place] Urine Protein Urine Glucose (UA) Urine Ketones Urine Blood Urine Nitrate Urine Bilirubin Urine Urobilinogen Ur Leukocyte Esterase Urine RBC Urine WBC Ur Epithelial Cells Triple Phos Crystals Urine Bacteria Assessment & Plan - Assessment and Plan (Free Text) Assessment: 72 yo female seen at bedside for possible dermatitis of the left foot with vascular insufficiency Plan: Patient seen and evaluated alongside Dr. Mcintosh Chart, labs and vitals reviewed ELISABET/PVR ordered vascular consult ordered eucerin cream ordered; to be applied bilaterally BID by the nurse thank you for the consult multipodus boots ordered podiatry will continue to follow the patient while in house <Ute Mcintosh - Last Filed: 06/24/18 14:06> Meds - Medications Medications: Current Medications Amlodipine Besylate (Norvasc) 5 mg PO DAILY [facility] Last Admin: 06/24/18 11:10 Dose: 5 mg Apixaban (Eliquis) 2.5 mg PO BID [facility]; Protocol Aspirin (Ecotrin) 81 mg PO DAILY [facility] Last Admin: 06/24/18 11:09 Dose: 81 mg Atorvastatin Calcium (Lipitor) 40 mg PO DIN [facility] Last Admin: 06/23/18 18:13 Dose: 40 mg Cyanocobalamin (Vitamin B12 1000 Mcg Tab) 1,000 mcg PO DAILY [facility] Last Admin: 06/24/18 11:10 Dose: 1,000 mcg Enoxaparin Sodium (Lovenox) 60 mg SC 0600,1800 [facility]; Protocol Stop: 06/25/18 12:00 Last Admin: 06/24/18 05:39 Dose: 60 mg Ferrous Gluconate (Fergon) 324 mg PO TID [facility] Last Admin: 06/24/18 11:09 Dose: 324 mg Sodium Chloride (Sodium Chloride 0.45%) 1,000 mls @ 60 mls/hr IV .[id number] [facility] Stop: 06/27/18 12:00 Insulin Human Regular (Humulin R Med) 0 units SC ACHS [facility]; Protocol Last Admin: 06/24/18 12:17 Dose: Not Given Isosorbide Mononitrate (Imdur) 60 mg PO DAILY [facility] Last Admin: 06/24/18 11:09 Dose: 60 mg Losartan Potassium (Cozaar) 100 mg PO DAILY [facility] Last Admin: 06/24/18 11:08 Dose: 100 mg Metformin HCl (Glucophage) 1,000 mg PO BID [facility] Last Admin: 06/24/18 11:09 Dose: 1,000 mg Metoprolol Tartrate (Lopressor) 25 mg PO BID [facility] Last Admin: 06/24/18 11:09 Dose: 25 mg Multi-Ingredient Cream (Hydrocerin Cream) 0 ea TOP BID [facility] Last Admin: 06/23/18 18:15 Dose: Not Given Ondansetron HCl (Zofran Inj) 4 mg IVP Q6H PRN PRN Reason: Nausea/Vomiting Prasugrel (Effient) 10 mg PO DAILY [facility] Last Admin: 06/24/18 11:09 Dose: 10 mg Sitagliptin Phosphate (Januvia) 50 mg PO DAILY [facility] Last Admin: 06/24/18 11:09 Dose: 50 mg Vitamin B Complex/Vit C/Folic Acid (Nephro-Maribel) 1 tab PO 0800 [facility] Last Admin: 06/24/18 08:47 Dose: 1 tab Zolpidem Tartrate (Ambien) 10 mg PO HS [facility]; Protocol Last Admin: 06/23/18 22:30 Dose: 10 mg Results - Vital Signs Recent Vital Signs: Last Vital Signs Temp 98.1 F 06/24/18 12:00 Pulse 96 H 06/24/18 12:00 Resp 20 06/24/18 12:00 BP 152/80 H 06/24/18 12:00 Pulse Ox 96 06/24/18 06:00 - Labs Result Diagrams: 06/24/18 07:15 06/24/18 07:15 Labs: Laboratory Results - last 24 hr 06/23/18 06/23/18 06/24/18 17:31 21:25 02:30 WBC RBC Hgb Hct MCV MCH MCHC RDW Plt Count MPV Sodium Potassium Chloride Carbon Dioxide Anion Gap BUN Creatinine Est GFR ( Amer) Est GFR (Non-Af Amer) POC Glucose (mg/dL) 105 89 Random Glucose Calcium Total Bilirubin AST ALT Alkaline Phosphatase Total Protein Albumin Globulin Albumin/Globulin Ratio Stool Occult Blood Positive H 06/24/18 06/24/18 07:15 07:15 WBC 8.5 RBC 3.91 Hgb 9.9 L Hct 31.3 L MCV 80.1 MCH 25.3 MCHC 31.6 RDW 14.0 Plt Count 165 MPV 8.9 Sodium 139 Potassium 3.9 Chloride 104 Carbon Dioxide 28 Anion Gap 11 BUN 15 Creatinine 1.0 Est GFR ( Amer) > 60 Est GFR (Non-Af Amer) 54 POC Glucose (mg/dL) Random Glucose 96 Calcium 8.5 Total Bilirubin 0.3 AST 29 ALT 37 Alkaline Phosphatase 89 Total Protein 6.3 Albumin 3.1 Globulin 3.3 Albumin/Globulin Ratio 0.9 L Stool Occult Blood Attending/Attestation - Attestation I have personally seen and examined this patient.: Yes I have fully participated in the care of the patient.: Yes I have reviewed all pertinent clinical information: Yes
[2018-06-15] MEDS: Cefepime 1gm in NS 100ml 1 GM/100 ML BAG IVPB SCH ×2 (15:51→22:16)
--- NOTE | 2018-06-15 16:03 | US ---
PROCEDURE: Lower extremity ELISABET exam HISTORY: Peripheral vascular disease with ischemic pain. Diabetes PHYSICIAN(S): Lei Kirk MD. FINDINGS: The resting ABIs are inaccurate. The brachial systolic pressures are symmetric. The right high thigh pressure is noncompressible. The left high thigh pressure is not obtainable. The right high thigh PVR waveform is normal. The left high thigh PVR waveform is decreased in amplitude compared to the right. This is consistent with left iliac occlusive disease. The right calf PVR waveform is moderately blunted. There appears to be a significant pressure gradient across the right thigh. The findings are consistent with right SFA occlusive disease. Left calf PVR waveform is severely blunted. This could represent left SFA occlusive disease. The ankle and metatarsal waveforms are essentially flat. This is consistent with bilateral trifurcation and/or tibial disease. IMPRESSION: 1. Severely abnormal ELISABET/PVR exam at rest. 2. Left iliac occlusive disease. 3. Bilateral SFA occlusive disease. 4. Bilateral trifurcation and/or tibial disease. The distal waveforms are essentially flat 5. If clinically indicated, further evaluation can be obtained with MRA with gadolinium runoff, CTA runoff, or conventional arteriography
[2018-06-15] MEDS: Hydrocerin(120 gm) TOP SCH (17:44)
--- NOTE | 2018-06-15 17:54 | CON ---
DATE OF CONSULTATION: 06/15/2018 The patient is seen earlier today in Room 265, Bed 1. CHIEF COMPLAINT: Shortness of breath and increasing weight gain for several days. HISTORY OF PRESENT ILLNESS: This is a 72-year-old female with a history of DVT, history of congestive heart failure, which is systolic, with an ejection fraction of 35%, diabetes mellitus, hypertension, coronary artery disease, kidney disease, who was admitted to the emergency room with diagnosis of dizziness and history of hypertension, high cholesterol and chronic kidney disease. Infectious consultation requested regarding the patient's left foot erythema. PAST MEDICAL HISTORY: Significant for congestive heart failure, coronary artery disease, hypertension, diabetes, DVT, kidney disease, anxiety, diabetes mellitus and peripheral edema. PAST SURGICAL HISTORY: Significant for cholecystectomy. MEDICATIONS AT HOME: Reviewed and include Norvasc, metformin, Coreg, Lasix, isosorbide, Zestril, metoprolol, losartan, Eliquis, aspirin, Crestor, Januvia and Ambien. ALLERGIES: THE PATIENT HAS NO KNOWN ALLERGIES. REVIEW OF SYSTEMS: The patient denies any fevers, any chills. No nausea, no vomiting or chest pain. No abdominal pain, no diarrhea or constipation. A 12-point review systems is performed. PHYSICAL EXAMINATION: The patient is in bed in no acute distress, nontoxic, with a temperature of 98, T-max is 99, heart rate is 74, blood pressure is 139/67 and respiratory rate is 20. Examination of the HEENT is unremarkable. Neck is supple. Lungs have decreased breath sounds. Heart exam, normal S1 and S2. Abdominal examination is soft and nontender. No rebound or guarding or masses. On examination of foot, left foot has erythema, no discharge. It is warm to touch and pulses are present. No break in the skin, just the erythema of the left foot. LABORATORY EXAMINATION: Reveals a white count of 10,000, hemoglobin of 12, and platelets of 279. The patient's sed rate is 106. The patient's creatinine is 1.3 and it was 1.4 on 05/15/2018. At the end of 04/2018, it was 1.0. Urinalysis reveals proteinuria, moderate blood, large bacteria, 0 to 2 wbc's. Chest x-ray, no active pulmonary disease. History and physical examination is reviewed. The emergency room chart is reviewed. ASSESSMENT AND PLAN: This is a 72-year-old female admitted with shortness of breath, deep venous thrombosis, low ejection fraction, diabetes mellitus, congestive heart failure, hypertension, anxiety, kidney disease, and coronary artery disease, now with acute systolic congestive heart failure on top of chronic congestive heart failure. We will discontinue the Levaquin and use Maxipime 1 g IV every 12 adjusted for the patient's renal function. We will also use Zyvox. I am hesitant to use vancomycin. Pending imaging to rule out underlying osteomyelitis, MRI if it is possible, arterial Dopplers to evaluate peripheral arterial disease. Podiatric consultation and vascular consultation. We will follow with you. Dakota Stewart MD
[2018-06-16] MEDS: Sodium Chloride 0.9% 1,000 ML IV SCH (06:35)
[2018-06-16 06:41] LABS: INR 1.23; PARTIAL THROMBOPLASTIN TIME 32.9 Seconds (25.1-36.5); PROTHROMBIN TIME 14.2 SECONDS (9.4-12.5)
[2018-06-16 07:08] LABS: HEMOGLOBIN 10.4 g/dL (12.0-16.0); MEAN CELL VOLUME 80.9 fl (80.0-105.0); MEAN CORPUSCULAR HEMOGLOBIN 25.1 pg (25.0-35.0); MEAN PLATELET VOLUME 10.1 fl (7.0-11.0); RBC 4.14 10^6/uL (3.5-6.1); RED CELL DISTRIBUTION WIDTH 12.7 % (11.5-14.5); WHITE BLOOD COUNT 9.4 10^3/uL (4.5-11.0)
[2018-06-16 07:34] LABS: ALBUMIN 3.5 g/dL (3.0-4.8); CALCIUM 8.6 mg/dL (8.4-10.5)
[2018-06-16 07:43] LABS: FREE T4 1.22 ng/dL (0.78-2.19)
[2018-06-16] MEDS ORDERED: Iodixanol 320 MG/ML 200 ML BOTTLE IV ONE (08:27)
[2018-06-16] MEDS ORDERED: Lidocaine 2% PF (10 ml) Amp ONE (08:27)
--- NOTE | 2018-06-16 08:47 | PN ---
DATE: 06/16/2018 SUBJECTIVE: She is resting comfortably in bed. I had a preflight mechanic. She is doing better. She tells me she is feeling better, eating better. Still has issues that are going on. CHF is improved. She has a left foot cellulitis. She has left peripheral artery disease; acute kidney injury, which I think is improving; diabetes and CHF. She is being seen by Cardiology and Renal. Waiting for Vascular and Podiatry to see the patient, it was a resident. PHYSICAL EXAMINATION: VITAL SIGNS: 98.2 temp, 72 pulse, 126/69 blood pressure, 20 respiratory rate, 96% O2 sat on room air. HEENT: Head is atraumatic, normocephalic. HEART: Regular rate. LUNGS: Decreased breath sounds, but clear. ABDOMEN: Soft, nontender. Positive bowel sounds. EXTREMITIES: Wrapped up in bandages, but she tells me that feeling better. No pain. MEDICATIONS: She is currently on Ambien, aspirin, Coreg, Diovan, Eliquis, Glucophage, insulin, multi ingredient cream, Imdur, Januvia, Lasix, Lipitor, Maxipime IV, Norvasc, IV fluids, Toprol and Zyvox. LABORATORY DATA: She has a 9.4 white count, 10.4 hemoglobin, 33.5 hematocrit with 235 platelets. 140 sodium, potassium 3.9, BUN 50, creatinine 1.3, which is slowly improving. GFR is 40, last blood sugar was 125, calcium is 8.6, phosphorous is 4.1, magnesium was high at 3, AST is 23, ALT is 26, alk phos 111, total protein 6.9, TSH is 3.44. She had large bacteria when she came in in the urine. ASSESSMENT AND PLAN: We will continue aggressive treatment and care. Await Vascular opinion of the peripheral arterial disease of the left leg. Hopefully, she is out of bed to chair today and sits in a chair and check her labs tomorrow. Continue with IV antibiotics. Rick Chisholm DO
[2018-06-16] MEDS ORDERED: Iohexol 350mgl/ml 50 ML ONE (09:03)
--- NOTE | 2018-06-16 09:38 | CP.PCM.PN ---
<Tessa Stroud - Last Filed: 06/16/18 12:07> Subjective - Date & Time of Evaluation Date of Evaluation: 06/16/18 Time of Evaluation: 09:37 - Subjective Subjective: Podiatry progress note for Dr. Mcintosh/Dr Bojorquez, 72 yo female seen at bedside for worsening left foot pain. Patient states the pain has been present for a very long time. Denies itching sensation to the foot. Denies acute overnight events. Denies any other pedal complains. Denies f/n/v/sob/chest pain/diarrhea Objective - Vital Signs/Intake and Output Vital Signs (last 24 hours): Temp Pulse Resp BP Pulse Ox 98.2 F 72 20 126/69 96 06/16/18 06:00 06/16/18 06:00 06/16/18 06:00 06/16/18 06:00 06/16/18 06:00 Intake and Output: 06/16/18 06/16/18 06:59 18:59 Intake Total 820 Output Total 200 Balance 620 - Medications Medications: Current Medications Amlodipine Besylate (Norvasc) 5 mg PO DAILY [facility] Last Admin: 06/15/18 11:11 Dose: 5 mg Apixaban (Eliquis) 2.5 mg PO BID [facility]; Protocol Aspirin (Aspirin Chewable) 81 mg PO DAILY [facility] Last Admin: 06/15/18 11:11 Dose: 81 mg Atorvastatin Calcium (Lipitor) 80 mg PO DIN [facility] Last Admin: 06/15/18 17:45 Dose: 80 mg Carvedilol (Coreg) 6.25 mg PO BID [facility] Last Admin: 06/15/18 17:45 Dose: 6.25 mg Furosemide (Lasix) 40 mg IVP DAILY [facility] Last Admin: 06/15/18 10:52 Dose: Not Given Sodium Chloride (Sodium Chloride 0.9%) 1,000 mls @ 50 mls/hr IV .Q20H [facility] Last Admin: 06/16/18 06:35 Dose: 50 mls/hr Cefepime HCl (Maxipime 1gm) 1 gm in 100 mls @ 25 mls/hr IVPB Q12 [facility]; Protocol Stop: 06/24/18 12:46 Last Admin: 06/15/18 22:16 Dose: 25 mls/hr Insulin Human Regular (Humulin R Med) 0 units SC ACHS [facility]; Protocol Last Admin: 06/15/18 21:52 Dose: Not Given Insulin Human Regular (Humulin R Med) 0 units SC ACHS [facility]; Protocol Last Admin: 06/15/18 21:51 Dose: Not Given Isosorbide Mononitrate (Imdur) 60 mg PO DAILY [facility] Last Admin: 06/15/18 11:12 Dose: 60 mg Linezolid (Zyvox) 600 mg PO BID [facility]; Protocol Stop: 06/24/18 18:01 Last Admin: 06/15/18 17:46 Dose: 600 mg Metformin HCl (Glucophage) 1,000 mg PO BID [facility] Last Admin: 06/15/18 17:45 Dose: 1,000 mg Metoprolol Succinate (Toprol Xl) 50 mg PO DAILY [facility] Last Admin: 06/15/18 11:11 Dose: 50 mg Multi-Ingredient Cream (Hydrocerin Cream) 0 ea TOP BID [facility] Last Admin: 06/15/18 17:44 Dose: 1 applic Sitagliptin Phosphate (Januvia) 50 mg PO DAILY [facility] Last Admin: 06/15/18 11:11 Dose: 50 mg Valsartan (Diovan) 320 mg PO DAILY [facility] Last Admin: 06/15/18 11:11 Dose: 320 mg Zolpidem Tartrate (Ambien) 5 mg PO HS [facility]; Protocol Last Admin: 06/15/18 22:15 Dose: 5 mg - Labs Labs: 06/16/18 05:25 06/16/18 05:25 PT 14.2 SECONDS (9.4-12.5) H 06/16/18 05:25 INR 1.23 06/16/18 05:25 APTT 32.9 Seconds (25.1-36.5) 06/16/18 05:25 - Constitutional Appears: Well, Non-toxic, No Acute Distress - Head Exam Head Exam: ATRAUMATIC, NORMOCEPHALIC - Extremities Exam Additional comments: Bilateral lower extremity exam: Vascular: DP/pt pulses nonpalpable b/l, TG warm to cool (cooler on left), CFT <5 secs x 10, no edema noted, pinpoint erythematous lesions noted on the dorsal aspect of the left foot derm: no IDM, no open lesions, xerosis and peeling of skin noted b/l L>R, no edema or ecchymosis noted, no clinical signs of infection ortho: pain on palpation to the left foot neuro: protective sensation grossly intact - Neurological Exam Neurological Exam: Alert, Awake, Oriented x3 - Psychiatric Exam Psychiatric exam: Normal Affect Assessment and Plan - Assessment and Plan (Free Text) Assessment: 72 yo female seen at bedside for possible dermatitis of the left foot with vascular insufficiency Plan: Patient seen and evaluated Chart, labs and vitals reviewed ELISABET/PVR; left iliac and bilateral SFA occlusive disease vascular consult ordered; recs appreciated. eucerin cream ordered; to be applied bilaterally BID by the nurse multipodus boots ordered to be worn at all times podiatry will continue to follow the patient every other day while in house <Ute Mcintosh - Last Filed: 06/24/18 14:05> Objective - Vital Signs/Intake and Output Vital Signs (last 24 hours): Temp Pulse Resp BP Pulse Ox 98.1 F 96 H 20 152/80 H 96 06/24/18 12:00 06/24/18 12:00 06/24/18 12:00 06/24/18 12:00 06/24/18 06:00 Intake and Output: 06/24/18 06/24/18 06:59 18:59 Intake Total 900 Output Total 1000 Balance -100 - Medications Medications: Current Medications Amlodipine Besylate (Norvasc) 5 mg PO DAILY [facility] Last Admin: 06/24/18 11:10 Dose: 5 mg Apixaban (Eliquis) 2.5 mg PO BID [facility]; Protocol Aspirin (Ecotrin) 81 mg PO DAILY [facility] Last Admin: 06/24/18 11:09 Dose: 81 mg Atorvastatin Calcium (Lipitor) 40 mg PO DIN [facility] Last Admin: 06/23/18 18:13 Dose: 40 mg Cyanocobalamin (Vitamin B12 1000 Mcg Tab) 1,000 mcg PO DAILY [facility] Last Admin: 06/24/18 11:10 Dose: 1,000 mcg Enoxaparin Sodium (Lovenox) 60 mg SC 0600,1800 [facility]; Protocol Stop: 06/25/18 12:00 Last Admin: 06/24/18 05:39 Dose: 60 mg Ferrous Gluconate (Fergon) 324 mg PO TID [facility] Last Admin: 06/24/18 11:09 Dose: 324 mg Sodium Chloride (Sodium Chloride 0.45%) 1,000 mls @ 60 mls/hr IV .[id number] [facility] Stop: 06/27/18 12:00 Insulin Human Regular (Humulin R Med) 0 units SC ACHS [facility]; Protocol Last Admin: 06/24/18 12:17 Dose: Not Given Isosorbide Mononitrate (Imdur) 60 mg PO DAILY [facility] Last Admin: 06/24/18 11:09 Dose: 60 mg Losartan Potassium (Cozaar) 100 mg PO DAILY [facility] Last Admin: 06/24/18 11:08 Dose: 100 mg Metformin HCl (Glucophage) 1,000 mg PO BID [facility] Last Admin: 06/24/18 11:09 Dose: 1,000 mg Metoprolol Tartrate (Lopressor) 25 mg PO BID [facility] Last Admin: 06/24/18 11:09 Dose: 25 mg Multi-Ingredient Cream (Hydrocerin Cream) 0 ea TOP BID [facility] Last Admin: 06/23/18 18:15 Dose: Not Given Ondansetron HCl (Zofran Inj) 4 mg IVP Q6H PRN PRN Reason: Nausea/Vomiting Prasugrel (Effient) 10 mg PO DAILY [facility] Last Admin: 06/24/18 11:09 Dose: 10 mg Sitagliptin Phosphate (Januvia) 50 mg PO DAILY [facility] Last Admin: 06/24/18 11:09 Dose: 50 mg Vitamin B Complex/Vit C/Folic Acid (Nephro-Maribel) 1 tab PO 0800 [facility] Last Admin: 06/24/18 08:47 Dose: 1 tab Zolpidem Tartrate (Ambien) 10 mg PO HS [facility]; Protocol Last Admin: 06/23/18 22:30 Dose: 10 mg - Labs Labs: 06/24/18 07:15 06/24/18 07:15 PT 14.2 SECONDS (9.4-12.5) H 06/16/18 05:25 INR 1.23 06/16/18 05:25 APTT 32.9 Seconds (25.1-36.5) 06/16/18 05:25 Attending/Attestation - Attestation I have personally seen and examined this patient.: Yes I have fully participated in the care of the patient.: Yes I have reviewed all pertinent clinical information, including history, physical exam and plan: Yes <Romulo Bojorquez - Last Filed: 06/27/18 12:04> Objective - Vital Signs/Intake and Output Vital Signs (last 24 hours): Temp Pulse Resp BP Pulse Ox 98.5 F 109 H 18 118/79 100 06/27/18 06:00 06/27/18 10:00 06/27/18 06:00 18 09:31 06/27/18 06:00 Intake and Output: 06/27/18 06/27/18 06:59 18:59 Intake Total 1080 Output Total 800 180 Balance 280 -180 - Medications Medications: Current Medications Amlodipine Besylate (Norvasc) 5 mg PO DAILY [facility] Last Admin: 06/27/18 09:31 Dose: 5 mg Apixaban (Eliquis) 2.5 mg PO BID [facility]; Protocol Aspirin (Ecotrin) 81 mg PO DAILY [facility] Last Admin: 06/27/18 09:31 Dose: 81 mg Atorvastatin Calcium (Lipitor) 40 mg PO DIN [facility] Last Admin: 06/26/18 22:21 Dose: 40 mg Cyanocobalamin (Vitamin B12 1000 Mcg Tab) 1,000 mcg PO DAILY [facility] Last Admin: 06/27/18 09:31 Dose: 1,000 mcg Ferrous Gluconate (Fergon) 324 mg PO TID [facility] Last Admin: 06/27/18 09:31 Dose: 324 mg Insulin Human Regular (Humulin R Med) 0 units SC [facility]; Protocol Last Admin: 06/27/18 07:55 Dose: Not Given Isosorbide Mononitrate (Imdur) 60 mg PO DAILY [facility] Last Admin: 06/27/18 09:31 Dose: 60 mg Losartan Potassium (Cozaar) 100 mg PO DAILY [facility] Last Admin: 06/27/18 09:31 Dose: 100 mg Metformin HCl (Glucophage) 1,000 mg PO BID [facility] Last Admin: 06/25/18 11:32 Dose: Not Given Metoprolol Tartrate (Lopressor) 25 mg PO BID [facility] Last Admin: 06/27/18 09:31 Dose: 25 mg Multi-Ingredient Cream (Hydrocerin Cream) 0 ea TOP BID [facility] Last Admin: 06/27/18 09:36 Dose: 1 applic Ondansetron HCl (Zofran Inj) 4 mg IVP Q6H PRN PRN Reason: Nausea/Vomiting Pantoprazole Sodium (Protonix Ec Tab) 40 mg PO 0600 [facility] Prasugrel (Effient) 10 mg PO DAILY [facility] Last Admin: 06/27/18 09:35 Dose: 10 mg Sitagliptin Phosphate (Januvia) 50 mg PO DAILY [facility] Last Admin: 06/27/18 09:31 Dose: 50 mg Vitamin B Complex/Vit C/Folic Acid (Nephro-Maribel) 1 tab PO 0800 [facility] Last Admin: 06/27/18 09:31 Dose: 1 tab Zolpidem Tartrate (Ambien) 10 mg PO HS [facility]; Protocol Last Admin: 06/26/18 22:21 Dose: 10 mg - Labs Labs: 06/27/18 06:15 06/27/18 06:15 PT 14.2 SECONDS (9.4-12.5) H 06/16/18 05:25 INR 1.23 06/16/18 05:25 APTT 32.9 Seconds (25.1-36.5) 06/16/18 05:25
[2018-06-16] MEDS ORDERED: Midazolam 2 MG/2 ML VIAL ONE ×2 (09:45→11:38)
[2018-06-16] MEDS ORDERED: Eptifibatide 20 mg/10mL Inj IVP ONE (10:17)
[2018-06-16 10:20] LABS: IRON 37 ug/dL (45-180)
[2018-06-16 10:29] LABS: % IRON SATURATION 13 % (20-55); TOTAL IRON BINDING CAPACITY 288 ug/dL (265-497)
[2018-06-16] MEDS ORDERED: Sodium Chloride 0.9% 1,000 ML IV SCH (10:42)
--- NOTE | 2018-06-16 10:56 | PN ---
DATE: 06/16/2018 SUBJECTIVE: The patient is in bed, seen earlier today, in no acute distress in 265, bed 1. No fevers, no chills. PHYSICAL EXAMINATION: VITAL SIGNS: On exam, temperature is 98, blood pressure is 126/60, respiratory rate of 20, heart rate of 72. HEENT: Examination of HEENT is unremarkable. NECK: Supple. LUNGS: Have decreased breath sounds. HEART: Normal S1, S2. ABDOMEN: Soft. LABORATORY DATA: Laboratory examination reveals the patient's white count is 9.4, hemoglobin of 10, platelets of 235. Chemistries reveals a BUN of 50, creatinine of 1.3. Urinalysis is noted. Microbiology reveals the blood cultures are negative. ASSESSMENT AND PLAN: A 72-year-old female, admitted with shortness of breath, deep venous thrombosis, low ejection fraction, diabetes mellitus, congestive heart failure, hypertension, anxiety, kidney disease with acute systolic congestive heart failure on top of chronic congestive heart failure with a left foot cellulitis that it is improving. We will check on the MRI. Blood cultures are reported to be negative. If no osteomyelitis, may switch to p.o. doxycycline 100 mg p.o. b.i.d. x5 days. Dakota Stewart MD
[2018-06-16] MEDS: Insulin Reg-MEDIUM-Coverage SC SCH ×6 (11:00→22:35)
--- NOTE | 2018-06-16 11:37 | CARD ---
APPROVED REPORT Date of service: 06/16/2018 EKG Measurement Heart [id number] <Conclusion> Normal sinus rhythm Nonspecific T wave abnormality Q in lll No change
--- NOTE | 2018-06-16 12:58 | CARDCATH ---
PROCEDURE DATE: 06/15/2018 CARDIAC CATHETERIZATION AND PTCA HISTORY: The patient is a 72-year-old woman, who presents with exertional angina as well as dyspnea. She had a recent stress test that showed an EF of 35% with marked ischemic areas. Because of her recent pulmonary embolism, it was decided to hold off on her cardiac catheterization until her anticoagulation regimen could be tapered. Because of her admission for recurrent angina, a cardiac catheterization was recommended. PROCEDURE: Left heart catheterization with coronary arteriography and left ventriculogram followed by percutaneous transluminal coronary angioplasty and stent of a 99% stenosis of a left anterior descending with a bare-metal stent. The right femoral artery was cannulated with a 6-Persian sheath. There were no complications. I performed moderate sedation, which included the presence of an independent trained observer that assisted in monitoring the patient's consciousness as well as physiologic status. After administration of Versed and fentanyl, her intra service time was 30 minutes. The findings on catheterization revealed a left ventricle that was globally hypokinetic with marked hypokinesis of the apex. Estimated ejection fraction is approximately 40-45%. Her coronary anatomy revealed a right dominant circulation. The RCA was revealed diffuse atherosclerosis with 80% stenosis in three areas of the posterolateral branch. The left main artery was unremarkable. The LAD was calcified with diffuse atherosclerosis. There is a 99% stenosis in the midportion of the LAD. There is a 50% stenosis in the midportion of the distal LAD after the takeoff of the diagonal vessel. The circumflex artery and obtuse marginal branches revealed diffuse atherosclerosis without critical lesions. The patient was started on intravenous Angiomax. She was given two boluses of IV Integrilin without a drip. Under fluoroscopic guide, the guiding catheter was placed in the ostium of the left main artery. An 0.014 ATW wire was used to cross the critical lesion. A 2 balloon was utilized to predilate the lesion. A 2.75 x 12 mm bare-metal stent was implanted in the mid LAD at 14 atmospheres of pressure. Repeat coronary arteriography revealed an excellent result with no residual stenosis and [place] 3 flow. The patient tolerated the procedure well. Manual compression will be used to close the femoral artery site. In summary, the procedure was successful PTCA and stent of a 99% mid LAD stenosis with a bare-metal stent. A bare-metal stent was utilized because of the patient's need for long-term anticoagulation with Eliquis for her pulmonary embolism. Cardiac catheterization reveals two-vessel CAD with critical lesions in the LAD as well as the posterolateral branch of the RCA. LV function was abnormal with an EF of 40-45%. Given these findings, the patient will need to be on Plavix for 1 month. We will restart her back on her Eliquis and continue her on her baby aspirin. We will bring her back on Tuesday for PTCA and stent of the three lesions of the RCA. Lei Rivera MD
[2018-06-16] MEDS: Cefepime 1gm in NS 100ml 1 GM/100 ML BAG IVPB SCH ×2 (13:36→23:59)
[2018-06-16] MEDS: Hydrocerin(120 gm) TOP SCH ×2 (13:38→19:19)
[2018-06-16 16:04] LABS: FERRITIN 84.7 ng/mL
[2018-06-16 17:36] LABS: FOLATE 7.6 ng/mL
--- NOTE | 2018-06-16 23:24 | CON ---
DATE: 06/16/2018 TIME: 11:50 a.m. CHIEF COMPLAINT/HISTORY OF PRESENT ILLNESS: This is a 72-year-old female who was admitted with left foot ischemia. She subsequently underwent a cardiac catheterization with LAD stent placement. She states that she has been having pain in the left foot for approximately 1-2 weeks. The left foot is erythematous and ischemic. She has palpable femoral pulses. There is a sheath in the right groin from the cardiac catheterization. Her popliteal and distal pulses are absent. Her ELISABET/PVR exam demonstrates multilevel occlusive disease. She has bilateral SFA and tibial disease. There is possible left iliac disease. Her past medical history is significant for hypertension, diabetes, and CHF with coronary disease. Her creatinine is slightly elevated at 1.3. ASSESSMENT AND PLAN: Ms. Iris Padgett is scheduled for additional coronary stent placement on Tuesday. We need to be careful with contrast doses in this elderly patient with renal insufficiency. I will order an MRA with gadolinium runoff to assess her lower extremity circulation. This was explained to the patient through a hotel casino floorperson. Lei Kirk MD [email or web address]
[2018-06-17] MEDS: Insulin Reg-MEDIUM-Coverage SC SCH ×8 (07:30→23:04)
[2018-06-17 08:53] LABS: BASO # 0.03 K/mm3 (0.0-2.0); BASO % 0.2 % (0.0-3.0); EOS # 0.2 (0.0-0.7); EOS % 1.4 % (1.5-5.0); GRAN # 10.74 (1.4-6.5); GRAN % 83.8 % (50.0-68.0); HEMOGLOBIN 10.4 g/dL (12.0-16.0); LYMPH # 1.3 (1.2-3.4); LYMPH % 10.5 % (22.0-35.0); MEAN CELL VOLUME 80.3 fl (80.0-105.0); MEAN CORPUSCULAR HEMOGLOBIN 25.6 pg (25.0-35.0); MEAN CORPUSCULAR HGB CONC 31.8 g/dl (31.0-37.0); MEAN PLATELET VOLUME 9.7 fl (7.0-11.0); MONO # 0.5 (0.1-0.6); MONO % 4.1 % (1.0-6.0); RBC 4.07 10^6/uL (3.5-6.1); RED CELL DISTRIBUTION WIDTH 12.9 % (11.5-14.5); WHITE BLOOD COUNT 12.8 10^3/uL (4.5-11.0)
--- NOTE | 2018-06-17 09:03 | CP.PCM.PN ---
<Oli Arenas - Last Filed: 06/17/18 09:01> Subjective - Date & Time of Evaluation Date of Evaluation: 06/17/18 Time of Evaluation: 09:01 - Subjective Subjective: Podiatry progress note for Dr. Mcintosh/Dr Bojorquez, 72 yo female seen at bedside for worsening left foot pain. Patient states the pain has been present for a very long time. Denies itching sensation to the foot. Denies acute overnight events. Denies any other pedal complains. Denies f/n/v/sob/chest pain/diarrhea Objective - Vital Signs/Intake and Output Vital Signs (last 24 hours): Temp Pulse Resp BP Pulse Ox 97.6 F 81 20 124/63 97 06/17/18 06:00 06/17/18 06:00 06/17/18 06:00 06/17/18 06:00 06/17/18 06:00 Intake and Output: 06/17/18 06/17/18 06:59 18:59 Intake Total 830 Output Total 600 Balance 230 - Medications Medications: Current Medications Amlodipine Besylate (Norvasc) 5 mg PO DAILY [facility] Last Admin: 06/16/18 14:41 Dose: 5 mg Apixaban (Eliquis) 2.5 mg PO BID [facility]; Protocol Aspirin (Aspirin Chewable) 81 mg PO DAILY [facility] Last Admin: 06/16/18 14:40 Dose: Not Given Aspirin (Ecotrin) 81 mg PO DAILY [facility] Atorvastatin Calcium (Lipitor) 40 mg PO DIN [facility] Last Admin: 06/16/18 19:17 Dose: 40 mg Carvedilol (Coreg) 6.25 mg PO BID [facility] Last Admin: 06/16/18 19:16 Dose: 6.25 mg Clopidogrel Bisulfate (Plavix) 75 mg PO DAILY [facility] Furosemide (Lasix) 40 mg IVP DAILY [facility] Last Admin: 06/15/18 10:52 Dose: Not Given Cefepime HCl (Maxipime 1gm) 1 gm in 100 mls @ 25 mls/hr IVPB Q12 [facility]; Protocol Stop: 06/24/18 12:46 Last Admin: 06/16/18 23:59 Dose: 25 mls/hr Insulin Human Regular (Humulin R Med) 0 units SC ACHS [facility]; Protocol Last Admin: 06/17/18 08:30 Dose: Not Given Insulin Human Regular (Humulin R Med) 0 units SC [facility]; Protocol Last Admin: 06/16/18 22:35 Dose: Not Given Isosorbide Mononitrate (Imdur) 60 mg PO DAILY [facility] Last Admin: 06/16/18 14:40 Dose: 60 mg Linezolid (Zyvox) 600 mg PO BID [facility]; Protocol Stop: 06/24/18 18:01 Last Admin: 06/16/18 19:17 Dose: 600 mg Metformin HCl (Glucophage) 1,000 mg PO BID [facility] Last Admin: 06/15/18 17:45 Dose: 1,000 mg Multi-Ingredient Cream (Hydrocerin Cream) 0 ea TOP BID [facility] Last Admin: 06/16/18 19:19 Dose: 1 applic Sitagliptin Phosphate (Januvia) 50 mg PO DAILY [facility] Last Admin: 06/16/18 10:00 Dose: Not Given Valsartan (Diovan) 320 mg PO DAILY [facility] Last Admin: 06/16/18 14:40 Dose: 320 mg Zolpidem Tartrate (Ambien) 5 mg PO HS [facility]; Protocol Last Admin: 06/16/18 22:52 Dose: Not Given - Labs Labs: 06/17/18 08:30 06/16/18 05:25 PT 14.2 SECONDS (9.4-12.5) H 06/16/18 05:25 INR 1.23 06/16/18 05:25 APTT 32.9 Seconds (25.1-36.5) 06/16/18 05:25 - Constitutional Appears: Well, Non-toxic, No Acute Distress - Head Exam Head Exam: ATRAUMATIC, NORMOCEPHALIC - Extremities Exam Additional comments: Bilateral lower extremity exam: Vascular: DP/pt pulses nonpalpable b/l, TG warm to cool (cooler on left), CFT <5 secs x 10, no edema noted, pinpoint erythematous lesions noted on the dorsal aspect of the left foot derm: no IDM, no open lesions, xerosis and peeling of skin noted b/l L>R, no edema or ecchymosis noted, no clinical signs of infection ortho: pain on palpation to the left foot neuro: protective sensation grossly intact - Neurological Exam Neurological Exam: Alert, Awake, Oriented x3 - Psychiatric Exam Psychiatric exam: Normal Affect, Normal Mood Assessment and Plan - Assessment and Plan (Free Text) Assessment: 72 yo female seen at bedside for possible dermatitis of the left foot with vascular insufficiency Plan: Patient seen and evaluated with Dr. Bojorquez Chart, labs and vitals reviewed ELISABET/PVR; left iliac and bilateral SFA occlusive disease vascular consult ordered; recs appreciated. eucerin cream ordered; to be applied bilaterally BID by the nurse multipodus boots ordered to be worn at all times podiatry will continue to follow the patient every other day while in house <Romulo Bojorquez - Last Filed: 06/20/18 12:18> Objective - Vital Signs/Intake and Output Vital Signs (last 24 hours): Temp Pulse Resp BP Pulse Ox 99.3 F 95 H 18 146/77 100 06/20/18 12:00 06/20/18 12:00 06/20/18 12:00 06/20/18 12:00 06/20/18 06:00 Intake and Output: 06/20/18 06/20/18 06:59 18:59 Intake Total 120 Output Total 600 Balance -480 - Medications Medications: Current Medications Amlodipine Besylate (Norvasc) 5 mg PO DAILY [facility] Last Admin: 06/20/18 09:59 Dose: 5 mg Apixaban (Eliquis) 2.5 mg PO BID [facility]; Protocol Aspirin (Ecotrin) 81 mg PO DAILY [facility] Last Admin: 06/20/18 10:00 Dose: 81 mg Atorvastatin Calcium (Lipitor) 40 mg PO DIN [facility] Last Admin: 06/19/18 18:36 Dose: 40 mg Cyanocobalamin (Vitamin B12 1000 Mcg Tab) 1,000 mcg PO DAILY [facility] Last Admin: 06/20/18 10:00 Dose: 1,000 mcg Ferrous Gluconate (Fergon) 324 mg PO TID [facility] Last Admin: 06/20/18 10:00 Dose: 324 mg Cefepime HCl (Maxipime 1gm) 1 gm in 100 mls @ 25 mls/hr IVPB Q12 [facility]; Protocol Stop: 06/24/18 12:46 Last Admin: 06/20/18 10:00 Dose: 25 mls/hr Insulin Human Regular (Humulin R Med) 0 units SC ACHS [facility]; Protocol Last Admin: 06/20/18 07:30 Dose: Not Given Isosorbide Mononitrate (Imdur) 60 mg PO DAILY [facility] Last Admin: 10/30/18 10:00 Dose: 60 mg Linezolid (Zyvox) 600 mg PO BID [facility]; Protocol Stop: 06/24/18 18:01 Last Admin: 06/20/18 10:00 Dose: 600 mg Losartan Potassium (Cozaar) 100 mg PO DAILY [facility] Last Admin: 06/20/18 10:00 Dose: 100 mg Metformin HCl (Glucophage) 1,000 mg PO BID [facility] Multi-Ingredient Cream (Hydrocerin Cream) 0 ea TOP BID [facility] Last Admin: 06/20/18 10:00 Dose: 1 applic Prasugrel (Effient) 10 mg PO DAILY [facility] Last Admin: 06/20/18 10:00 Dose: 10 mg Sitagliptin Phosphate (Januvia) 50 mg PO DAILY [facility] Last Admin: 06/20/18 10:00 Dose: 50 mg Vitamin B Complex/Vit C/Folic Acid (Nephro-Maribel) 1 tab PO 0800 [facility] Last Admin: 06/20/18 10:00 Dose: 1 tab Zolpidem Tartrate (Ambien) 5 mg PO HS [facility]; Protocol Last Admin: 06/19/18 22:25 Dose: 5 mg - Labs Labs: 06/20/18 06:30 06/20/18 06:30 PT 14.2 SECONDS (9.4-12.5) H 06/16/18 05:25 INR 1.23 06/16/18 05:25 APTT 32.9 Seconds (25.1-36.5) 06/16/18 05:25 Attending/Attestation - Attestation I have personally seen and examined this patient.: Yes I have fully participated in the care of the patient.: Yes I have reviewed all pertinent clinical information, including history, physical exam and plan: Yes
[2018-06-17 09:13] LABS: ALBUMIN 3.5 g/dL (3.0-4.8); ALT/SGPT 15 U/L (7-56); AST/SGOT 18 U/L (14-36); BLOOD UREA NITROGEN 36 mg/dL (7-21); GFR NON-AFRICAN AMERICAN 54
[2018-06-17] MEDS: Hydrocerin(120 gm) TOP SCH ×2 (10:00→17:50)
[2018-06-17] MEDS: Cefepime 1gm in NS 100ml 1 GM/100 ML BAG IVPB SCH ×2 (10:49→23:05)
[2018-06-17] MEDS: Enoxaparin 60 mg Syringe SC SCH ×2 (11:11→23:05)
--- NOTE | 2018-06-17 11:11 | PN ---
DATE: 06/17/2018 SUBJECTIVE: The patient is seen earlier this morning in 274. She is comfortable. She is awake. No fevers and no chills. She is improving. PHYSICAL EXAMINATION: VITAL SIGNS: On exam, temperature is 98, blood pressure is 120/60, respiratory rate of 20. HEENT: Examination of HEENT is unremarkable. NECK: Supple. LUNGS: Have decreased breath sounds. HEART: Normal S1, S2. ABDOMEN: Soft, nontender. EXTREMITIES: Examination of foot is much improved. Erythema is almost resolved. LABORATORY DATA: Laboratory examination reveals a white count of 12,800, hemoglobin of 10, sed rate is 106. Chemistries reveals a BUN of 36, creatinine is 1. The urinalysis is noted to be unremarkable. Microbiology reveals the blood cultures are negative. Review of orders reveals the patient to be on cefepime and Zyvox. MRI of the foot is ordered, but not done. progress note, Podiatry, is reviewed. Dr. Dyan Kirk's consultation is reviewed. The patient is scheduled for additional coronary stent placement on Tuesday. The patient underwent cardiac catheterization with LAD stent placement and Dr. Lei Rivera's cardiac catheterization report is also reviewed. The patient with a low ejection fraction of 40-45%. Successful PTCA with stent and 99% mid-LAD stenosis, bare-metal stent placement. ASSESSMENT AND PLAN: A 72-year-old female admitted with shortness of breath, deep venous thrombosis, low ejection fraction, diabetes mellitus, congestive heart failure, hypertension, anxiety, kidney disease. Admitted with acute systolic congestive heart failure on top of chronic congestive heart failure and a left foot cellulitis and dermatitis, which is markedly improved, status post cardiac catheterization with angioplasty and stent placement with bare-metal stent. Blood cultures negative. Currently on cefepime and Zyvox. Waiting for MRI. The patient is scheduled for stent placement in the leg by Dr. Lei Kirk for severe occlusive arterial disease. Today is day #3 of Zyvox and cefepime. If the MRI is negative, would complete 5-7 days of antibiotics, maybe able to switch both to pill form. We will follow with you pending Tuesday's vascular intervention. Dakota Stewart MD [facility] # [id number]
--- NOTE | 2018-06-17 11:38 | PN ---
DATE: 06/17/2018 CARDIOLOGY FOLLOWUP SUBJECTIVE: The patient is feeling better. No shortness of breath. No chest pain. PHYSICAL EXAMINATION: VITAL SIGNS: Blood pressure is 137/64, the heart rate is in the 90s. The patient is afebrile. Pulse oximetry is 94% on room air. NECK: Negative JVD. LUNGS: Without rales. HEART: Reveals S1, S2. EXTREMITIES: Decreased pulses on the left, which is chronic. The right groin site is stable. LABORATORY DATA: White count is up to 12.8, hemoglobin is 10.4. Chemistries: BUN and creatinine 36 and 1, glucose is 164. IMPRESSION: 1. Stable post percutaneous transluminal coronary angioplasty and stent of a 99% mid left anterior descending stenosis. 2. Coronary artery disease. 3. History of pulmonary embolism. 4. Peripheral vascular disease. 5. Diabetes mellitus. PLAN: Given these findings, we will continue her on aspirin and Plavix. We will discontinue her Eliquis for now. We will start her on subcu Lovenox full dose. The patient is for PTCA and stent of a second blood vessel on Tuesday. Physical therapy has been ordered. Lei Rivera MD
--- NOTE | 2018-06-17 14:33 | CP.PCM.PN ---
Subjective - Date & Time of Evaluation Date of Evaluation: 06/17/18 Time of Evaluation: 14:30 - Subjective Subjective: RENAL s: seen and examiend s/p stent yesterday o: vss gen: nad sclera: anicteric op: clear neck: supple no thyromegaly lungs: cta b/l abd: soft nt nd no organomegaly ext: no edema neuro: a+ox3 no focal defecit psych: nml affect skin no rash A/P: ARF/ Anemia/ CAD/ Hypertension/ CHF/ plan: B[facility]OLO is reolved cr back to [facility] if cr increases - please hold diovan bp stable cad s/p stent by cardiology if going for peripheral stent - would recc 0.9% ns 3cc/kg starting 1 hour prior to procedure and 1 cc/kg x 6 hours post as long as cardiac function can tolerate that, at this point does not appear hypervolemic Objective - Vital Signs/Intake and Output Vital Signs (last 24 hours): Temp Pulse Resp BP Pulse Ox 97.4 F L 86 18 134/70 97 06/17/18 12:00 06/17/18 12:00 06/17/18 12:00 06/17/18 12:00 06/17/18 06:00 Intake and Output: 06/17/18 06/17/18 06:59 18:59 Intake Total 830 Output Total 600 Balance 230 - Medications Medications: Current Medications Amlodipine Besylate (Norvasc) 5 mg PO DAILY [facility] Last Admin: 06/17/18 10:49 Dose: 5 mg Apixaban (Eliquis) 2.5 mg PO BID [facility]; Protocol Aspirin (Aspirin Chewable) 81 mg PO DAILY [facility] Last Admin: 06/17/18 10:38 Dose: 81 mg Aspirin (Ecotrin) 81 mg PO DAILY [facility] Last Admin: 06/17/18 10:50 Dose: Not Given Atorvastatin Calcium (Lipitor) 40 mg PO DIN [facility] Last Admin: 06/16/18 19:17 Dose: 40 mg Clopidogrel Bisulfate (Plavix) 75 mg PO DAILY [facility] Last Admin: 06/17/18 10:49 Dose: 75 mg Enoxaparin Sodium (Lovenox) 60 mg SC Q12H [facility]; Protocol Stop: 06/18/18 14:00 Last Admin: 06/17/18 11:11 Dose: 60 mg Cefepime HCl (Maxipime 1gm) 1 gm in 100 mls @ 25 mls/hr IVPB Q12 [facility]; Protocol Stop: 06/24/18 12:46 Last Admin: 06/17/18 10:49 Dose: 25 mls/hr Insulin Human Regular (Humulin R Med) 0 units SC [facility]; Protocol Last Admin: 06/17/18 11:30 Dose: Not Given Insulin Human Regular (Humulin R Med) 0 units SC [facility]; Protocol Last Admin: 06/16/18 22:35 Dose: Not Given Isosorbide Mononitrate (Imdur) 60 mg PO DAILY [facility] Last Admin: 06/17/18 10:48 Dose: 60 mg Linezolid (Zyvox) 600 mg PO BID [facility]; Protocol Stop: 06/24/18 18:01 Last Admin: 06/17/18 10:49 Dose: 600 mg Metformin HCl (Glucophage) 1,000 mg PO BID [facility] Last Admin: 06/17/18 10:50 Dose: Not Given Multi-Ingredient Cream (Hydrocerin Cream) 0 ea TOP BID [facility] Last Admin: 06/16/18 19:19 Dose: 1 applic Sitagliptin Phosphate (Januvia) 50 mg PO DAILY [facility] Last Admin: 06/17/18 10:48 Dose: 50 mg Valsartan (Diovan) 320 mg PO DAILY [facility] Last Admin: 06/17/18 10:48 Dose: 320 mg Zolpidem Tartrate (Ambien) 5 mg PO HS [facility]; Protocol Last Admin: 06/16/18 22:52 Dose: Not Given - Labs Labs: 06/17/18 08:30 06/17/18 08:30 PT 14.2 SECONDS (9.4-12.5) H 06/16/18 05:25 INR 1.23 06/16/18 05:25 APTT 32.9 Seconds (25.1-36.5) 06/16/18 05:25
--- NOTE | 2018-06-17 16:47 | PN ---
DATE: 06/17/2018 SUBJECTIVE: She had a cardiac cath with Dr. Rivera yesterday and they stented her. She has peripheral artery disease in the lower extremities and Dr. Rivera wants to take her back on Tuesday for another stent in the heart, I believe that is the plan right now. MEDICATIONS: She is on Ambien, aspirin, Coreg, Diovan, Ecotrin, Eliquis is on hold, Glucophage, insulin, hydroxyzine cream, Imdur, Januvia, Lasix is on hold, Lipitor, Maxipime IV, Norvasc, Plavix, and Zyvox. PHYSICAL EXAMINATION: GENERAL: She is resting comfortably in bed, uncomfortable about being here, understands why, she is trying to eat a little bit, but not much hungry. She is alert. She is talking to me. VITAL SIGNS: Temperature 97.6, 81 pulse, 124/63 blood pressure, 20 respiratory rate, 97% O2 sat on 2 L. HEENT: Head is atraumatic, normocephalic. Throat is dry. HEART: Regular rate. LUNGS: Decreased breath sounds, but fairly clear. Poor inspiration. ABDOMEN: Soft, nontender, positive bowel sounds. Belly is fairly okay. EXTREMITIES: Trace edema. Poor arteries. LABORATORY DATA: She has a 12.8 white count, 10.4 hemoglobin, 32.7 hematocrit with 232 platelets. INR is 1.23. Sodium 141, potassium 3.9, BUN 36, creatinine 1, GFR is 54, sugar is 164, calcium is 9. Iron was low at 37. Total bili is 0.5, AST is 18, ALT is 15, alk phos is 118. Vitamin B12 is low at 200. ASSESSMENT AND PLAN: She is being seen by Cardiology with stenting and Infectious Disease. She has shortness of breath, low ejection fraction, diabetes, congestive heart failure. She has a left foot cellulitis. She has peripheral artery disease. She may go for another cardiac cath on Tuesday. She has left iliac and bilateral SFA occlusive disease. There is an MRA pending. Continue aggressive treatment and care on Tammy Padgett. Rick Chisholm DO [facility] # [id number]
[2018-06-18] MEDS: Insulin Reg-MEDIUM-Coverage SC SCH ×5 (07:30→22:11)
--- NOTE | 2018-06-18 09:36 | CARD ---
APPROVED REPORT Date of service: 06/17/2018 EKG Measurement Heart [id number] <Conclusion> Sinus rhythm with sinus arrhythmia Inferior infarct, age undetermined NSSTW changes Shallow T wave inversions V 2 - 4, new
[2018-06-18 09:46] LABS: ALBUMIN 2.8 g/dL (3.0-4.8); CALCIUM 8.7 mg/dL (8.4-10.5)
[2018-06-18] MEDS: Enoxaparin 60 mg Syringe SC SCH (10:06)
[2018-06-18] MEDS: Cefepime 1gm in NS 100ml 1 GM/100 ML BAG IVPB SCH ×2 (10:07→22:27)
[2018-06-18] MEDS: Hydrocerin(120 gm) TOP SCH ×2 (10:39→22:35)
--- NOTE | 2018-06-18 10:52 | PN ---
DATE: 06/18/2018 SUBJECTIVE: I saw her resting comfortably in bed. Her legs are still sore and inflamed. She tells me that it is a little bit better with the redness. Her chest is okay. No chest pain or shortness of breath at rest. She gets out of bed for a little bit. She is eating some. She has multiple issues. MEDICATIONS: She is currently on Zolpidem, aspirin, Diovan, Ecotrin, Eliquis, Glucophage, Hydrocerin cream, Imdur, Januvia, Lipitor, Lovenox, cefepime, Norvasc, Plavix, Xanax and Zyvox. PHYSICAL EXAMINATION: VITAL SIGNS: She has a 98.8 temp, 80 pulse, 136/68 blood pressure, 18 respiratory rate, 97% O2 sat on room air. HEENT: Head is atraumatic, normocephalic. HEART: Regular rate. LUNGS: Clear to auscultation with decreased breath sounds. ABDOMEN: Soft, nontender. Positive bowel sounds. EXTREMITIES: The redness is improving slowly. LABORATORY DATA: She has a 139 sodium, potassium 3.8, BUN is 38, creatinine 1.1, GFR is 49, sugar is 159, calcium is 8.7, total bili is 0.3, AST is 12, ALT is 21, alk phos 105, total protein is 5.7, vitamin B12 is 200. Urine is large bacteria. ASSESSMENT AND PLAN: She has been seen by Renal, Cardiology, Infectious Disease. She had a cardiac catheterization with stent placement. She is going back on Tuesday, tomorrow, for another cardiac catheterization with Cardiology. Also, she has a bunch of tests that are pending. I do not know why they did not do them yet. There is an MRA, lower extremity and abdomen and foot without contrast. MRI that had been ordered since 06/15/2018, hopefully that will be done. We will continue aggressive treatment and care. There might be a procedure with Dr. Lei Kirk of lower extremity for stent placement. We will see what the tests show, but tomorrow she need to go for cardiac catheterization. She has coronary artery disease, peripheral arterial disease, congestive heart failure, acute kidney injury, diabetes. I am going to continue to monitor her closely. Rick Chisholm DO [facility] # [id number]
--- NOTE | 2018-06-18 11:16 | PN ---
DATE: 06/18/2018 SUBJECTIVE: The patient is in bed in no acute distress, nontoxic. PHYSICAL EXAMINATION: VITAL SIGNS: On exam, temperature is 98, blood pressure is 130/60, respiratory rate of 18, heart rate of 79. HEENT: Examination of HEENT is unremarkable. NECK: Supple. LUNGS: Have decreased breath sounds. HEART: Normal S1, S2. ABDOMEN: Soft, nontender. LABORATORY EXAMINATION: Reveals a white count of 12,800, hemoglobin of 10, platelets of 232. Chemistries reveals a BUN of 38, creatinine of 1.1 and urinalysis is noted and the patient's sed rate is 106. C-reactive protein is 6.6. ASSESSMENT AND PLAN: A 72-year-old female was admitted with shortness of breath, has a history of deep venous thrombosis, low ejection fraction, diabetes mellitus, congestive heart failure, hypertension, anxiety, kidney disease, admitted on this admission with acute systolic congestive heart failure on top of chronic congestive heart failure and the left foot cellulitis and dermatitis that is dramatically improved and status post cardiac catheterization, angioplasty with stent placement with bare-metal stent, cultures negative. Currently on cefepime and Zyvox. Today is day #4 of antibiotics. If the MRI of the left foot is negative, would complete 5-7 days of antibiotics. The patient is scheduled for stent placement of the leg by Dr. Lei Kirk for severe occlusive arterial disease in a.m. We will follow with you. Dakota Stewart MD
--- NOTE | 2018-06-19 01:32 | PN ---
DATE: 06/18/2018 CARDIOLOGY FOLLOWUP SUBJECTIVE: The patient is chest pain-free. PHYSICAL EXAMINATION: VITAL SIGNS: Blood pressure is 136/68, heart rate is in the 80s. NECK: Negative for JVD. LUNGS: Without rales. HEART: S1, S2. EXTREMITIES: Without edema. LABORATORIES: Hemoglobin is 10.4. Chemistries: BUN and creatinine are unremarkable. Glucose 159. IMPRESSION: 1. Non-ST elevation myocardial infarction. 2. Multivessel coronary artery disease. 3. History of pulmonary embolism. 4. Peripheral vascular disease. 5. Diabetes mellitus. ASSESSMENT AND PLAN: Given these findings, the patient is scheduled for percutaneous transluminal coronary angioplasty and stent tomorrow, multiple lesions in the right coronary artery. Afterwards, we will then address her peripheral vascular disease as long as her kidney issues tolerate the contrast that are necessary. Lie Rivera MD
[2018-06-19 07:20] LABS: HEMOGLOBIN 10.3 g/dL (12.0-16.0); MEAN CELL VOLUME 79.8 fl (80.0-105.0); MEAN CORPUSCULAR HEMOGLOBIN 25.1 pg (25.0-35.0); MEAN CORPUSCULAR HGB CONC 31.4 g/dl (31.0-37.0); MEAN PLATELET VOLUME 9.7 fl (7.0-11.0); RBC 4.11 10^6/uL (3.5-6.1); RED CELL DISTRIBUTION WIDTH 12.9 % (11.5-14.5); WHITE BLOOD COUNT 9.3 10^3/uL (4.5-11.0)
[2018-06-19] MEDS ORDERED: Lidocaine 2% Inj (20ml) ONE (07:28)
[2018-06-19] MEDS ORDERED: Iohexol 350mgl/ml 50 ML ONE (07:50)
[2018-06-19] MEDS ORDERED: Midazolam 2 MG/2 ML VIAL ONE ×2 (08:10→08:18)
[2018-06-19 08:32] LABS: ALB/GLOB RATIO 0.9 (1.1-1.8); ALBUMIN 3.2 g/dL (3.0-4.8); ALT/SGPT 19 U/L (7-56); AST/SGOT 21 U/L (14-36); BLOOD UREA NITROGEN 31 mg/dL (7-21); CALCIUM 8.7 mg/dL (8.4-10.5); GFR NON-AFRICAN AMERICAN 54
[2018-06-19] MEDS ORDERED: Iohexol 350 MG/100 ML VIAL ONE (08:39)
--- NOTE | 2018-06-19 08:45 | PN ---
DATE: 06/19/2018 SUBJECTIVE: The patient is in bed, in no acute distress, nontoxic. PHYSICAL EXAMINATION: VITAL SIGNS: Temperature is 97, blood pressure is 149/70, respiratory rate of 18, heart rate of 86. HEENT: Examination of HEENT is unremarkable. NECK: Supple. LUNGS: Have decreased breath sounds. HEART: Normal S1 and S2. ABDOMEN: Soft, nontender. LABORATORY DATA: Laboratory examination reveals a white count of 9.3, hemoglobin of 10, platelets of 210. Chemistries reveal BUN of 38, creatinine of 1.1. Urinalysis is noted. Microbiology reveals the blood cultures are negative. ASSESSMENT AND PLAN: A 72-year-old who was admitted with shortness of breath, history of deep venous thrombosis, low ejection fraction, diabetes, congestive heart failure, systolic with hypertension, anxiety, kidney disease. On this admission, the patient was admitted with acute systolic congestive heart failure on top of chronic congestive heart failure and left foot cellulitis and dermatitis, which is traumatic and improved. Status post cardiac catheterization, angioplasty and placement of a bare-metal stent. Cultures negative. Today is day #5 of Zyvox and cefepime. If the MRI of the left foot is negative, would complete 5-7 days of antibiotics. If the MRI is positive, then we will have to treat as osteomyelitis. The patient is scheduled for coronary angioplasty and stent placement for today for the right coronary artery multiple lesions. We will follow with you. Dakota Stewart MD
[2018-06-19] MEDS ORDERED: Sodium Chloride 0.9% 1,000 ML IV SCH (09:30)
--- NOTE | 2018-06-19 10:35 | CARDCATH ---
PROCEDURE DATE: 06/19/2018 CARDIAC CATHETERIZATION AND PTCA HISTORY: The patient is a 72-year-old woman, who presents with unstable angina. She was found to have multivessel CAD. The patient underwent successful PTCA and stent of a 99% mid LAD last week. She was brought back for revascularization of the RCA. Her procedures are all complicated by renal insufficiency as well as severe peripheral vascular disease. PROCEDURE: Coronary arteriography followed by PTCA and stent of an RCA. This was followed by a peripheral angiogram. The right femoral artery was cannulated with a 6-Russian sheath. There were no complications. I performed moderate sedation, which included the presence of an independent trained observer that assisted in monitoring the patient's consciousness and physiologic status. After administration of Versed and fentanyl, my intra service time was 45 minutes. The findings on catheterization revealed a patent stent in the mid LAD, which was placed last week. Her RCA was a dominant vessel, which revealed diffuse atherosclerosis. In the distal portion of the RCA, there was a 70-80% stenosis prior to the PDA. The posterolateral branch revealed a 90% stenosis. The proximal portion of the PDA revealed an 80% stenosis. The patient was started on intravenous Angiomax. On the fluoroscopic guide, the guiding catheter was placed in the ostium of the RCA. An 0.014 ATW wire was used to cross the PDA lesion. A 2 balloon was utilized to dilate the lesion. Bare-metal stents were placed in the proximal portion of the PDA as well as in the distal RCA. Repeat coronary arteriography revealed an excellent result with no residual stenosis and [place] 3 flow. This was followed by peripheral angiogram, which revealed an occlusion in the left SFA as well as a 90% stenosis in the right SFA. The formal peripheral angiogram will be dictated in another report. The patient tolerated the procedure well. In summary, the procedure was successful PTCA and stent of two lesions in the RCA. Cardiac catheterization revealed a patent stent in the mid LAD, which was placed last week. Bare-metal stents were used because of her need for Eliquis. In addition, her was found that the patient was resistant to Plavix. We will change her over to Effient. Lei Rivera MD
[2018-06-19] MEDS: Hydrocerin(120 gm) TOP SCH ×2 (10:58→18:37)
--- NOTE | 2018-06-19 11:10 | CARD ---
APPROVED REPORT Date of service: 06/19/2018 EKG Measurement Heart [id number] ME [id number] <Conclusion> Normal sinus rhythm Nonspecific T wave abnormality Abnormal ECG
--- NOTE | 2018-06-19 11:13 | PN ---
DATE: 06/19/2018 SUBJECTIVE: She is status post catheterization where she had 2 cardiac stents placed by Dr. Rivera. She is resting comfortably in bed. They also did some at her lower extremities, I am not sure what the results are yet. She is on Ambien, aspirin, Diovan, Ecotrin, Effient, Eliquis in which her Effient and Eliquis and Glucophage are on hold right now. Insulin coverage, Imdur, Januvia, Lipitor, Maxipime, Norvasc, IV fluids and Zyvox. PHYSICAL EXAMINATION: VITAL SIGNS: She has a 97.7 temp, 86 pulse, 149/76 blood pressure, 19 respiratory rate, 99% O2 sat on a nasal cannula on 2 liters. HEENT: Head is atraumatic, normocephalic. Throat moist. NECK: Supple. HEART: Regular rate. LUNGS: Decreased breath sounds, but clear. ABDOMEN: Soft. EXTREMITIES: No edema. Tenderness to palpation in the lower extremities. She has multiple issues down there. ASSESSMENT AND PLAN: She has coronary artery disease, peripheral arterial disease, congestive heart failure, acute kidney injury, diabetes mellitus. She is being seen by numerous physicians, Infectious Disease, Cardiology, Renal. She had acute systolic congestive heart failure, chronic congestive heart failure, left foot cellulitis and dermatitis. Awaiting for the MRI. If it is negative, needs 5-7 days of antibiotics and if it is positive, needs longer and the MRI not done. Status post cardiac cath with 2 stents. Rick Chisholm DO [id number]
--- NOTE | 2018-06-19 11:42 | CP.PCM.PN ---
<Tessa Stroud - Last Filed: 06/19/18 11:41> Subjective - Date & Time of Evaluation Date of Evaluation: 06/19/18 Time of Evaluation: 11:41 - Subjective Subjective: Podiatry progress note for Dr. Mcintosh/Dr Bojorquez, 72 yo female seen at bedside for worsening left foot pain. Patient states the pain has been present for a very long time. Denies itching sensation to the foot. Denies acute overnight events. Denies any other pedal complains. Denies f/n/v/sob/chest pain/diarrhea Objective - Vital Signs/Intake and Output Vital Signs (last 24 hours): Temp Pulse Resp BP Pulse Ox 97.7 F 86 19 149/76 99 06/19/18 06:00 06/19/18 06:00 06/19/18 06:00 06/19/18 06:00 06/19/18 06:00 Intake and Output: 06/19/18 06/19/18 06:59 18:59 Intake Total 100 Output Total 800 Balance -700 - Medications Medications: Current Medications Amlodipine Besylate (Norvasc) 5 mg PO DAILY [facility] Last Admin: 06/18/18 10:10 Dose: 5 mg Apixaban (Eliquis) 2.5 mg PO BID [facility]; Protocol Aspirin (Ecotrin) 81 mg PO DAILY [facility] Last Admin: 06/19/18 06:47 Dose: 81 mg Atorvastatin Calcium (Lipitor) 40 mg PO DIN [facility] Last Admin: 06/18/18 17:43 Dose: 40 mg Cyanocobalamin (Vitamin B12 1000 Mcg Tab) 1,000 mcg PO DAILY [facility] Ferrous Gluconate (Fergon) 324 mg PO TID [facility] Cefepime HCl (Maxipime 1gm) 1 gm in 100 mls @ 25 mls/hr IVPB Q12 [facility]; Protocol Stop: 06/24/18 12:46 Last Admin: 06/18/18 22:27 Dose: 25 mls/hr Sodium Chloride (Sodium Chloride 0.9%) 1,000 mls @ 100 mls/hr IV .Q10H [facility] Stop: 06/19/18 17:00 Insulin Human Regular (Humulin R Med) 0 units SC ACHS [facility]; Protocol Last Admin: 06/18/18 22:11 Dose: Not Given Isosorbide Mononitrate (Imdur) 60 mg PO DAILY [facility] Last Admin: 06/18/18 10:09 Dose: 60 mg Linezolid (Zyvox) 600 mg PO BID [facility]; Protocol Stop: 06/24/18 18:01 Last Admin: 06/18/18 17:42 Dose: 600 mg Metformin HCl (Glucophage) 1,000 mg PO BID [facility] Multi-Ingredient Cream (Hydrocerin Cream) 0 ea TOP BID [facility] Last Admin: 06/18/18 22:35 Dose: 1 applic Prasugrel (Effient) 10 mg PO DAILY [facility] Last Admin: 06/19/18 09:42 Dose: 10 mg Sitagliptin Phosphate (Januvia) 50 mg PO DAILY [facility] Last Admin: 06/18/18 10:07 Dose: 50 mg Valsartan (Diovan) 320 mg PO DAILY [facility] Last Admin: 06/18/18 10:08 Dose: 320 mg Vitamin B Complex/Vit C/Folic Acid (Nephro-Maribel) 1 tab PO 0800 [facility] Zolpidem Tartrate (Ambien) 5 mg PO HS [facility]; Protocol Last Admin: 06/18/18 22:24 Dose: 5 mg - Labs Labs: 06/19/18 07:00 06/19/18 07:00 PT 14.2 SECONDS (9.4-12.5) H 06/16/18 05:25 INR 1.23 06/16/18 05:25 APTT 32.9 Seconds (25.1-36.5) 06/16/18 05:25 - Constitutional Appears: Well, Non-toxic - Extremities Exam Additional comments: Bilateral lower extremity exam: Vascular: DP/pt pulses nonpalpable b/l, TG warm to cool (cooler on left), CFT <5 secs x 10, no edema noted, pinpoint erythematous lesions noted on the dorsal aspect of the left foot- resolving derm: no IDM, no open lesions, xerosis and peeling of skin noted b/l L>R, no edema or ecchymosis noted, no clinical signs of infection ortho: pain on palpation to the left foot neuro: protective sensation grossly intact - Neurological Exam Neurological Exam: Alert, Normal Gait - Psychiatric Exam Psychiatric exam: Normal Affect - Skin Skin Exam: Normal Color Assessment and Plan - Assessment and Plan (Free Text) Assessment: 72 yo female seen at bedside for possible dermatitis of the left foot with vascular insufficiency Plan: Patient seen and evaluated with Dr. Bojorquez Chart, labs and vitals reviewed ELISABET/PVR; left iliac and bilateral SFA occlusive disease vascular consult ordered; recs appreciated. eucerin cream ordered; to be applied bilaterally BID by the nurse multipodus boots ordered to be worn at all times podiatry will continue to follow the patient every other day while in house <Ute Mcintosh - Last Filed: 06/24/18 14:04> Objective - Vital Signs/Intake and Output Vital Signs (last 24 hours): Temp Pulse Resp BP Pulse Ox 98.1 F 96 H 20 152/80 H 96 06/24/18 12:00 06/24/18 12:00 06/24/18 12:00 06/24/18 12:00 06/24/18 06:00 Intake and Output: 06/24/18 06/24/18 06:59 18:59 Intake Total 900 Output Total 1000 Balance -100 - Medications Medications: Current Medications Amlodipine Besylate (Norvasc) 5 mg PO DAILY [facility] Last Admin: 06/24/18 11:10 Dose: 5 mg Apixaban (Eliquis) 2.5 mg PO BID [facility]; Protocol Aspirin (Ecotrin) 81 mg PO DAILY [facility] Last Admin: 06/24/18 11:09 Dose: 81 mg Atorvastatin Calcium (Lipitor) 40 mg PO DIN [facility] Last Admin: 06/23/18 18:13 Dose: 40 mg Cyanocobalamin (Vitamin B12 1000 Mcg Tab) 1,000 mcg PO DAILY [facility] Last Admin: 06/24/18 11:10 Dose: 1,000 mcg Enoxaparin Sodium (Lovenox) 60 mg SC 0600,1800 [facility]; Protocol Stop: 06/25/18 12:00 Last Admin: 06/24/18 05:39 Dose: 60 mg Ferrous Gluconate (Fergon) 324 mg PO TID [facility] Last Admin: 06/24/18 11:09 Dose: 324 mg Sodium Chloride (Sodium Chloride 0.45%) 1,000 mls @ 60 mls/hr IV .[id number] [facility] Stop: 06/27/18 12:00 Insulin Human Regular (Humulin R Med) 0 units SC ACHS [facility]; Protocol Last Admin: 06/24/18 12:17 Dose: Not Given Isosorbide Mononitrate (Imdur) 60 mg PO DAILY [facility] Last Admin: 06/24/18 11:09 Dose: 60 mg Losartan Potassium (Cozaar) 100 mg PO DAILY [facility] Last Admin: 06/24/18 11:08 Dose: 100 mg Metformin HCl (Glucophage) 1,000 mg PO BID [facility] Last Admin: 06/24/18 11:09 Dose: 1,000 mg Metoprolol Tartrate (Lopressor) 25 mg PO BID [facility] Last Admin: 06/24/18 11:09 Dose: 25 mg Multi-Ingredient Cream (Hydrocerin Cream) 0 ea TOP BID [facility] Last Admin: 06/23/18 18:15 Dose: Not Given Ondansetron HCl (Zofran Inj) 4 mg IVP Q6H PRN PRN Reason: Nausea/Vomiting Prasugrel (Effient) 10 mg PO DAILY [facility] Last Admin: 06/24/18 11:09 Dose: 10 mg Sitagliptin Phosphate (Januvia) 50 mg PO DAILY [facility] Last Admin: 06/24/18 11:09 Dose: 50 mg Vitamin B Complex/Vit C/Folic Acid (Nephro-Maribel) 1 tab PO 0800 [facility] Last Admin: 06/24/18 08:47 Dose: 1 tab Zolpidem Tartrate (Ambien) 10 mg PO HS [facility]; Protocol Last Admin: 06/23/18 22:30 Dose: 10 mg - Labs Labs: 06/24/18 07:15 06/24/18 07:15 PT 14.2 SECONDS (9.4-12.5) H 06/16/18 05:25 INR 1.23 06/16/18 05:25 APTT 32.9 Seconds (25.1-36.5) 06/16/18 05:25
[2018-06-19] MEDS: Insulin Reg-MEDIUM-Coverage SC SCH ×4 (14:06→22:22)
--- NOTE | 2018-06-19 14:31 | CP.PCM.PN ---
Subjective - Date & Time of Evaluation Date of Evaluation: 06/19/18 Time of Evaluation: 14:29 - Subjective Subjective: RENAL FOLLOW UP s: seen and examined s/p stent she feels usual health. denies CP/SOB/nausea/vomiting o: vss gen: nad sclera: anicteric op: clear neck: supple no thyromegaly lungs: cta b/l abd: soft nt nd no organomegaly ext: no edema neuro: a+ox3 no focal defecit psych: nml affect skin no rash A/P: ARF/ Anemia/ CAD/ Hypertension/ CHF/PVD plan: BARTOLO is reolved cr back to [facility] due to recent FDA concerns, will change diovan to losartan 100 mg/day bp stable cad s/p stent by cardiology added iron, MVI and B12 supplements high urine pH, check renal sono to eval for stones. can check urine cx/sens. Objective - Vital Signs/Intake and Output Vital Signs (last 24 hours): Temp Pulse Resp BP Pulse Ox 97.7 F 86 19 149/76 99 06/19/18 06:00 06/19/18 06:00 06/19/18 06:00 06/19/18 06:00 06/19/18 06:00 Intake and Output: 06/19/18 06/19/18 06:59 18:59 Intake Total 100 Output Total 800 Balance -700 - Medications Medications: Current Medications Amlodipine Besylate (Norvasc) 5 mg PO DAILY [facility] Last Admin: 06/18/18 10:10 Dose: 5 mg Apixaban (Eliquis) 2.5 mg PO BID [facility]; Protocol Aspirin (Ecotrin) 81 mg PO DAILY [facility] Last Admin: 06/19/18 06:47 Dose: 81 mg Atorvastatin Calcium (Lipitor) 40 mg PO DIN [facility] Last Admin: 06/18/18 17:43 Dose: 40 mg Cyanocobalamin (Vitamin B12 1000 Mcg Tab) 1,000 mcg PO DAILY [facility] Ferrous Gluconate (Fergon) 324 mg PO TID [facility] Cefepime HCl (Maxipime 1gm) 1 gm in 100 mls @ 25 mls/hr IVPB Q12 [facility]; Protocol Stop: 06/24/18 12:46 Last Admin: 06/18/18 22:27 Dose: 25 mls/hr Sodium Chloride (Sodium Chloride 0.9%) 1,000 mls @ 100 mls/hr IV .Q10H [facility] Stop: 06/19/18 17:00 Insulin Human Regular (Humulin R Med) 0 units SC ACHS [facility]; Protocol Last Admin: 06/19/18 14:20 Dose: Not Given Isosorbide Mononitrate (Imdur) 60 mg PO DAILY [facility] Last Admin: 06/18/18 10:09 Dose: 60 mg Linezolid (Zyvox) 600 mg PO BID [facility]; Protocol Stop: 06/24/18 18:01 Last Admin: 06/18/18 17:42 Dose: 600 mg Metformin HCl (Glucophage) 1,000 mg PO BID [facility] Multi-Ingredient Cream (Hydrocerin Cream) 0 ea TOP BID [facility] Last Admin: 06/18/18 22:35 Dose: 1 applic Prasugrel (Effient) 10 mg PO DAILY [facility] Last Admin: 06/19/18 09:42 Dose: 10 mg Sitagliptin Phosphate (Januvia) 50 mg PO DAILY [facility] Last Admin: 06/18/18 10:07 Dose: 50 mg Valsartan (Diovan) 320 mg PO DAILY [facility] Last Admin: 06/18/18 10:08 Dose: 320 mg Vitamin B Complex/Vit C/Folic Acid (Nephro-Maribel) 1 tab PO 0800 [facility] Zolpidem Tartrate (Ambien) 5 mg PO HS [facility]; Protocol Last Admin: 06/18/18 22:24 Dose: 5 mg - Labs Labs: 06/19/18 07:00 06/19/18 07:00 PT 14.2 SECONDS (9.4-12.5) H 06/16/18 05:25 INR 1.23 06/16/18 05:25 APTT 32.9 Seconds (25.1-36.5) 06/16/18 05:25
[2018-06-19] MEDS: Cefepime 1gm in NS 100ml 1 GM/100 ML BAG IVPB SCH ×2 (15:23→22:21)
[2018-06-20 07:10] LABS: BASO # 0.03 K/mm3 (0.0-2.0); BASO % 0.3 % (0.0-3.0); EOS # 0.2 (0.0-0.7); EOS % 2.3 % (1.5-5.0); GRAN # 6.86 (1.4-6.5); GRAN % 76.6 % (50.0-68.0); HEMOGLOBIN 8.6 g/dL (12.0-16.0); LYMPH # 1.3 (1.2-3.4); MEAN CELL VOLUME 80.5 fl (80.0-105.0); MEAN PLATELET VOLUME 9.8 fl (7.0-11.0); MONO # 0.5 (0.1-0.6); MONO % 5.8 % (1.0-6.0); RBC 3.44 10^6/uL (3.5-6.1); RED CELL DISTRIBUTION WIDTH 13.2 % (11.5-14.5)
[2018-06-20] MEDS: Insulin Reg-MEDIUM-Coverage SC SCH ×4 (07:30→21:54)
--- NOTE | 2018-06-20 07:39 | PN ---
DATE: 06/20/2018 CARDIOLOGY FOLLOWUP SUBJECTIVE: The patient is asymptomatic post PTCA and stent. PHYSICAL EXAMINATION: VITAL SIGNS: Blood pressure is 140/74, the heart rate is in the 80s. NECK: Negative JVD. LUNGS: Without rales. HEART: Reveals S1 and S2. SKIN: The right groin site is stable. LABORATORY DATA: Laboratories are pending from today. IMPRESSION: 1. Stable post multivessel percutaneous transluminal coronary angioplasty and stent with bare-metal stents. 2. Plavix resistance. 3. History of pulmonary embolism. 4. Severe peripheral vascular disease. 5. Diabetes mellitus. PLAN: Given these findings, we will check the creatinine today and the next day. If it remains stable postprocedure, Interventional Radiology should be able to approach her significant peripheral vascular disease with percutaneous solutions. Lei Rivera MD
[2018-06-20 07:52] LABS: ALB/GLOB RATIO 0.9 (1.1-1.8); ALBUMIN 2.8 g/dL (3.0-4.8); ALT/SGPT 29 U/L (7-56); AST/SGOT 27 U/L (14-36); BLOOD UREA NITROGEN 24 mg/dL (7-21); CALCIUM 8.3 mg/dL (8.4-10.5); GFR NON-AFRICAN AMERICAN > 60
[2018-06-20] MEDS: Hydrocerin(120 gm) TOP SCH ×2 (10:00→18:17)
[2018-06-20] MEDS: Multivitamin Vitamin B Complex (Nephro-Vite) Tab PO SCH (10:00)
[2018-06-20] MEDS: Cefepime 1gm in NS 100ml 1 GM/100 ML BAG IVPB SCH ×2 (10:00→21:53)
--- NOTE | 2018-06-20 11:39 | PN ---
DATE: 06/20/2018 SUBJECTIVE: She is resting comfortably in bed. Upset with her legs. It is still bothering her. She is on IV antibiotics. We cannot do the MRI due to stent. We are going to do a bone scan to see if there is anything going on to the bones as far as osteomyelitis. Also, she might need physical therapy because she is just weak and she might need to go to a facility. Physical therapist states they have not done physical therapy to let me know due to the cast she has been having for physical therapy to let me know if she needs anything. She is kind of weak. PHYSICAL EXAMINATION: VITAL SIGNS: Temperature 97.6, 89 pulse, 140/74 blood pressure, 20 respiratory rate, 100% O2 sat on room air. HEAD: Atraumatic, normocephalic. Throat is moist. NECK: Supple. HEART: Regular rate. LUNGS: Decreased breath sounds bilaterally, but clear to auscultation. Poor inspiration. ABDOMEN: Soft, nontender. Positive bowel sounds. EXTREMITIES: Both lower extremities are tender to palpation. No edema. She is currently on Ambien, Cozaar, Ecotrin, Effient, Eliquis, Fergon, Glucophage, insulin coverage, multi ingredient cream, Imdur, Lipitor, Nephro-Maribel, Norvasc, vitamin B12 and Zyvox. LABORATORY DATA: She has 9 white count, 8.6 hemoglobin, when she came in, it was 12, went down to 10, now it is 8.6. I am going to give her 1 unit of blood and check stools for blood, hematocrit 27.7, platelets of 216. She has 140 sodium, potassium 3.8, BUN is 24, creatinine 0.9, a bit better. GFR is greater than 60, sugar is 127, calcium is 8.3, total bili is 0.3, AST is 27, ALT is 29, alk phos 91. Total protein is 5.9 . So, she has few things we are trying to finish out. We are waiting for the bone scan to happen because she cannot have MRI. She also may need to have a stent placed in her leg due to peripheral artery disease, that will be if Dr. Lei Kirk feels that he can do it. She is status post multivessel percutaneous transluminal coronary angioplasty with bare-metal stents, Plavix resistance, pulmonary embolism history, severe peripheral vascular disease and diabetes mellitus and she needs PT, check the stools, transfusion, bone scan, IV antibiotics as per Infectious Disease. Continue aggressive treatment and care. Rick Chisholm DO [facility]
--- NOTE | 2018-06-20 12:12 | CP.PCM.PN ---
Subjective - Date & Time of Evaluation Date of Evaluation: 06/20/18 Time of Evaluation: 12:10 - Subjective Subjective: RENAL FOLLOW UP subj: seen and examined s/p stent she feels usual health. denies CP/SOB/nausea/vomiting. c/o leg pans o/e: vss gen: nad sclera: anicteric op: clear neck: supple no thyromegaly lungs: cta b/l abd: soft nt nd no organomegaly ext: no edema neuro: a+ox3 no focal deficit psych: nml affect skin no rash A/P: ARF/ Anemia/ CAD/ Hypertension/ CHF/PVD plan: [facility]O is resolved cr back to baseline. pt overall stable from renal perspective due to recent FDA concerns, changed diovan to losartan 100 mg/day bp stable cad and CHF management as per cardiology added iron, MVI and B12 supplements. PRBC as needed high urine pH, check renal sono to eval for staghorn stones. can check urine cx/sens if febrile. pt on antibiotics already. had d/w son and team Objective - Vital Signs/Intake and Output Vital Signs (last 24 hours): Temp Pulse Resp BP Pulse Ox 97.6 F 97 H 20 143/69 100 06/20/18 06:00 06/20/18 09:59 06/20/18 06:00 06/20/18 09:59 06/20/18 06:00 Intake and Output: 06/20/18 06/20/18 06:59 18:59 Intake Total 120 Output Total 600 Balance -480 - Medications Medications: Current Medications Amlodipine Besylate (Norvasc) 5 mg PO DAILY [facility] Last Admin: 06/20/18 09:59 Dose: 5 mg Apixaban (Eliquis) 2.5 mg PO BID [facility]; Protocol Aspirin (Ecotrin) 81 mg PO DAILY [facility] Last Admin: 06/20/18 10:00 Dose: 81 mg Atorvastatin Calcium (Lipitor) 40 mg PO DIN [facility] Last Admin: 06/19/18 18:36 Dose: 40 mg Cyanocobalamin (Vitamin B12 1000 Mcg Tab) 1,000 mcg PO DAILY [facility] Last Admin: 06/20/18 10:00 Dose: 1,000 mcg Ferrous Gluconate (Fergon) 324 mg PO TID [facility] Last Admin: 06/20/18 10:00 Dose: 324 mg Cefepime HCl (Maxipime 1gm) 1 gm in 100 mls @ 25 mls/hr IVPB Q12 [facility]; Protocol Stop: 06/24/18 12:46 Last Admin: 06/20/18 10:00 Dose: 25 mls/hr Insulin Human Regular (Humulin R Med) 0 units SC ACHS [facility]; Protocol Last Admin: 06/20/18 07:30 Dose: Not Given Isosorbide Mononitrate (Imdur) 60 mg PO DAILY [facility] Last Admin: 06/20/18 10:00 Dose: 60 mg Linezolid (Zyvox) 600 mg PO BID [facility]; Protocol Stop: 06/24/18 18:01 Last Admin: 06/20/18 10:00 Dose: 600 mg Losartan Potassium (Cozaar) 100 mg PO DAILY [facility] Last Admin: 06/20/18 10:00 Dose: 100 mg Metformin HCl (Glucophage) 1,000 mg PO BID [facility] Multi-Ingredient Cream (Hydrocerin Cream) 0 ea TOP BID [facility] Last Admin: 06/20/18 10:00 Dose: 1 applic Prasugrel (Effient) 10 mg PO DAILY [facility] Last Admin: 06/20/18 10:00 Dose: 10 mg Sitagliptin Phosphate (Januvia) 50 mg PO DAILY [facility] Last Admin: 06/20/18 10:00 Dose: 50 mg Vitamin B Complex/Vit C/Folic Acid (Nephro-Maribel) 1 tab PO 0800 [facility] Last Admin: 06/20/18 10:00 Dose: 1 tab Zolpidem Tartrate (Ambien) 5 mg PO HS [facility]; Protocol Last Admin: 06/19/18 22:25 Dose: 5 mg - Labs Labs: 06/20/18 06:30 06/20/18 06:30 PT 14.2 SECONDS (9.4-12.5) H 06/16/18 05:25 INR 1.23 06/16/18 05:25 APTT 32.9 Seconds (25.1-36.5) 06/16/18 05:25
--- NOTE | 2018-06-20 15:22 | US ---
Date of service: 06/19/2018 PROCEDURE: Ultrasound of the Kidneys HISTORY: BARTOLO, ckd, PLEASE EVAL FOR STONES COMPARISON: None available. TECHNIQUE: Sonogram of the kidneys. FINDINGS: RIGHT KIDNEY: Measures: 10.9 x 5.1 x 5.4 cm. Body habitus limits definition of the corticomedullary pattern overall and intrinsic medical renal disease is difficult to completely exclude. No definite cyst or solid renal parenchymal mass is appreciated. No urolithiasis identified. No perinephric fluid collection either. No obstructive uropathy. LEFT KIDNEY: Measures: cm. Body habitus limits definition of the corticomedullary pattern overall and intrinsic medical renal disease is difficult to completely exclude. No definite cyst or solid renal parenchymal mass is appreciated bilaterally. No perinephric fluid collection either. No obstructive uropathy. An 8 mm calculus is questioned at the midpole left kidney versus prominent perisinus fat. OTHER FINDINGS: None. IMPRESSION: No obstructive uropathy bilaterally. 8 mm midpole left renal calculus suggested. No additional urolithiasis identified otherwise bilaterally. Potential intrinsic medical renal disease as per above bilaterally.
--- NOTE | 2018-06-20 15:51 | CARD ---
APPROVED REPORT Date of service: 06/20/2018 EKG Measurement Heart [id number] <Conclusion> Sinus tachycardia with frequent premature ventricular complexes Nonspecific T wave abnormality Abnormal ECG
--- NOTE | 2018-06-20 18:11 | PN ---
DATE: 06/20/2018 SUBJECTIVE: The patient is in bed in no acute distress and nontoxic. No fevers and no chills. She is comfortable. PHYSICAL EXAMINATION: VITAL SIGNS: Temperature is 98, blood pressure is 140/70, respiratory rate 20. HEENT: Unremarkable. NECK: Supple. LUNGS: Decreased breath sounds. HEART: Normal S1 and S2. ABDOMEN: Soft and nontender. LABORATORY EXAMINATION: Reveals a white count of 9, hemoglobin of 8, platelets of 216. Chemistry reveals a BUN of 24, creatinine of 0.9. Urinalysis is noted. Microbiology is reviewed. ASSESSMENT AND PLAN: This is a 72-year-old female seen earlier today in 274, bed 1, comfortable, who was admitted with shortness of breath and the patient has a history of deep vein thrombosis, systolic congestive heart failure with low ejection fracture and hypertension, anxiety, kidney disease, admitted with acute systolic congestive heart failure on top of chronic congestive heart failure in the left foot cellulitis and dermatitis, which has greatly improved. The patient had status post cardiac catheterization angioplasty and placement of a bare-metal stent. Today is day #6 of Zyvox and cefepime. Unable to have an MRI, so the patient is scheduled for local bone scan if the bone scan is negative. The patient has had adequate antibiotic therapy with complete Zyvox p.o. and cefepime five to seven days, today is day #6. Dakota Stewart MD
[2018-06-21 07:17] LABS: HEMOGLOBIN 10.2 g/dL (12.0-16.0); MEAN CELL VOLUME 79.7 fl (80.0-105.0); MEAN CORPUSCULAR HEMOGLOBIN 25.9 pg (25.0-35.0); MEAN CORPUSCULAR HGB CONC 32.5 g/dl (31.0-37.0); MEAN PLATELET VOLUME 9.7 fl (7.0-11.0); RBC 3.94 10^6/uL (3.5-6.1); RED CELL DISTRIBUTION WIDTH 13.7 % (11.5-14.5); WHITE BLOOD COUNT 9.1 10^3/uL (4.5-11.0)
[2018-06-21 07:31] LABS: ALBUMIN 2.7 g/dL (3.0-4.8); ALT/SGPT 40 U/L (7-56); AST/SGOT 34 U/L (14-36); BLOOD UREA NITROGEN 23 mg/dL (7-21); CALCIUM 8.5 mg/dL (8.4-10.5); GFR NON-AFRICAN AMERICAN > 60
[2018-06-21] MEDS: Insulin Reg-MEDIUM-Coverage SC SCH ×4 (07:34→21:22)
--- NOTE | 2018-06-21 08:16 | PN ---
DATE: 06/21/2018 SUBJECTIVE: The patient is in bed in no acute distress, nontoxic. No fevers and chills. She is doing well. She is awake. PHYSICAL EXAMINATION: VITAL SIGNS: On exam, temperature is 98, blood pressure is 150/80, respiratory rate of 18. HEENT: Examination of HEENT is unremarkable. NECK: Supple. LUNGS: Have decreased breath sounds. HEART: Normal S1, S2. ABDOMEN: Soft. LABORATORY EXAMINATION: Reveals a white count is 9.1, hemoglobin of 10, platelets of 215. Chemistries reveals a BUN of 23, creatinine of 0.8 and urinalysis is noted. Microbiology is reviewed. Blood cultures are negative. ASSESSMENT AND PLAN: A 72-year-old female admitted with shortness of breath and the patient has a history of deep venous thrombosis and systolic congestive heart failure, low ejection fraction, hypertension, anxiety, kidney disease, admitted with acute systolic congestive heart failure on top of chronic congestive heart failure, left foot cellulitis which has improved, status post cardiac catheterization, angioplasty placement with bare-metal stent. Today is day #7 of Zyvox and cefepime. Unable to get an MRI. Awaiting for bone scan. If the bone scan is negative, may discontinue the antibiotics altogether no further antibiotics if the bone scan is negative. Awaiting for bone scan results. Currently on Zyvox and cefepime day #7. Dakota Stewart MD
[2018-06-21] MEDS: Multivitamin Vitamin B Complex (Nephro-Vite) Tab PO SCH (09:00)
[2018-06-21] MEDS: Hydrocerin(120 gm) TOP SCH ×2 (09:01→18:44)
[2018-06-21] MEDS: Cefepime 1gm in NS 100ml 1 GM/100 ML BAG IVPB SCH ×2 (09:01→22:23)
--- NOTE | 2018-06-21 10:03 | CP.PCM.PN ---
<Tessa Stroud - Last Filed: 06/23/18 11:40> Subjective - Date & Time of Evaluation Date of Evaluation: 06/23/18 Time of Evaluation: 10:03 - Subjective Subjective: Podiatry progress note for Dr. Mcintosh/Dr Bojorquez, 72 yo female seen at bedside for worsening left foot pain. Patient states the pain has been present for a very long time. Denies itching sensation to the foot. Denies acute overnight events. Denies any other pedal complains. Denies f/n/v/sob/chest pain/diarrhea Objective - Vital Signs/Intake and Output Vital Signs (last 24 hours): Temp Pulse Resp BP Pulse Ox 98.6 F 101 H 20 165/86 H 96 06/21/18 06:00 06/21/18 09:00 06/21/18 06:00 06/21/18 09:00 06/21/18 06:00 Intake and Output: 06/21/18 06/21/18 06:59 18:59 Intake Total 900 Output Total 100 Balance 800 - Medications Medications: Current Medications Amlodipine Besylate (Norvasc) 5 mg PO DAILY [facility] Last Admin: 06/21/18 09:00 Dose: 5 mg Apixaban (Eliquis) 2.5 mg PO BID [facility]; Protocol Aspirin (Ecotrin) 81 mg PO DAILY [facility] Last Admin: 06/21/18 09:00 Dose: 81 mg Atorvastatin Calcium (Lipitor) 40 mg PO DIN [facility] Last Admin: 06/20/18 18:21 Dose: 40 mg Cyanocobalamin (Vitamin B12 1000 Mcg Tab) 1,000 mcg PO DAILY [facility] Last Admin: 06/21/18 09:00 Dose: 1,000 mcg Ferrous Gluconate (Fergon) 324 mg PO TID [facility] Last Admin: 06/21/18 09:00 Dose: 324 mg Cefepime HCl (Maxipime 1gm) 1 gm in 100 mls @ 25 mls/hr IVPB Q12 [facility]; Protocol Stop: 06/24/18 12:46 Last Admin: 06/21/18 09:01 Dose: 25 mls/hr Insulin Human Regular (Humulin R Med) 0 units SC ACHS [facility]; Protocol Last Admin: 06/21/18 07:34 Dose: Not Given Isosorbide Mononitrate (Imdur) 60 mg PO DAILY [facility] Last Admin: 06/21/18 09:00 Dose: 60 mg Linezolid (Zyvox) 600 mg PO BID [facility]; Protocol Stop: 06/24/18 18:01 Last Admin: 06/21/18 09:00 Dose: 600 mg Losartan Potassium (Cozaar) 100 mg PO DAILY [facility] Last Admin: 06/21/18 09:08 Dose: 100 mg Metformin HCl (Glucophage) 1,000 mg PO BID [facility] Multi-Ingredient Cream (Hydrocerin Cream) 0 ea TOP BID [facility] Last Admin: 06/21/18 09:01 Dose: 1 applic Prasugrel (Effient) 10 mg PO DAILY [facility] Last Admin: 06/21/18 09:00 Dose: 10 mg Sitagliptin Phosphate (Januvia) 50 mg PO DAILY [facility] Last Admin: 06/21/18 09:00 Dose: 50 mg Vitamin B Complex/Vit C/Folic Acid (Nephro-Maribel) 1 tab PO 0800 [facility] Last Admin: 06/21/18 09:00 Dose: 1 tab Zolpidem Tartrate (Ambien) 10 mg PO HS [facility]; Protocol - Labs Labs: 06/21/18 06:15 06/21/18 06:15 PT 14.2 SECONDS (9.4-12.5) H 06/16/18 05:25 INR 1.23 06/16/18 05:25 APTT 32.9 Seconds (25.1-36.5) 06/16/18 05:25 - Constitutional Appears: Well, Non-toxic - Head Exam Head Exam: ATRAUMATIC - Extremities Exam Additional comments: Bilateral lower extremity exam: Vascular: DP/pt pulses nonpalpable b/l, TG warm to cool (cooler on left), CFT <5 secs x 10, no edema noted, pinpoint erythematous lesions noted on the dorsal aspect of the left foot- resolving derm: no IDM, no open lesions, xerosis and peeling of skin noted b/l L>R, deep tissue injury to the heel on the left, erythema and ecchymosis noted to the second and third digits, no clinical signs of infection ortho: pain on palpation to the left foot neuro: protective sensation grossly intact - Neurological Exam Neurological Exam: Alert, Normal Gait Assessment and Plan - Assessment and Plan (Free Text) Assessment: 72 yo female seen at bedside for possible dermatitis of the left foot with vascular insufficiency Plan: Patient seen and evaluated with Dr. Bojorquez Chart, labs and vitals reviewed Foot dressed with xerofrom to the heel and DSD to the foot. ELISABET/PVR; left iliac and bilateral SFA occlusive disease vascular consult ordered; recs appreciated. eucerin cream ordered; to be applied bilaterally BID by the nurse multipodus boots ordered to be worn at all times <Romulo Bojorquez - Last Filed: 06/23/18 13:45> Objective - Vital Signs/Intake and Output Vital Signs (last 24 hours): Temp Pulse Resp BP Pulse Ox 98.3 F 100 H 20 152/77 H 96 06/23/18 05:50 06/23/18 10:31 06/23/18 05:50 06/23/18 10:31 06/23/18 05:50 Intake and Output: 06/23/18 06/23/18 06:59 18:59 Intake Total 840 Output Total 700 Balance 140 - Medications Medications: Current Medications Amlodipine Besylate (Norvasc) 5 mg PO DAILY [facility] Last Admin: 06/23/18 10:31 Dose: 5 mg Apixaban (Eliquis) 2.5 mg PO BID [facility]; Protocol Aspirin (Ecotrin) 81 mg PO DAILY [facility] Last Admin: 06/23/18 10:32 Dose: 81 mg Atorvastatin Calcium (Lipitor) 40 mg PO DIN [facility] Last Admin: 06/22/18 18:52 Dose: 40 mg Cyanocobalamin (Vitamin B12 1000 Mcg Tab) 1,000 mcg PO DAILY [facility] Last Admin: 06/23/18 10:32 Dose: 1,000 mcg Enoxaparin Sodium (Lovenox) 60 mg SC 0600,1800 [facility]; Protocol Stop: 06/25/18 12:00 Last Admin: 06/23/18 05:45 Dose: 60 mg Ferrous Gluconate (Fergon) 324 mg PO TID [facility] Last Admin: 06/23/18 10:31 Dose: 324 mg Sodium Chloride (Sodium Chloride 0.45%) 1,000 mls @ 60 mls/hr IV .[id number] [facility] Stop: 06/27/18 12:00 Insulin Human Regular (Humulin R Med) 0 units SC ACHS [facility]; Protocol Last Admin: 06/23/18 12:28 Dose: Not Given Isosorbide Mononitrate (Imdur) 60 mg PO DAILY [facility] Last Admin: 06/23/18 10:32 Dose: 60 mg Losartan Potassium (Cozaar) 100 mg PO DAILY [facility] Last Admin: 06/23/18 10:32 Dose: 100 mg Metformin HCl (Glucophage) 1,000 mg PO BID [facility] Last Admin: 06/23/18 10:32 Dose: 1,000 mg Metoprolol Tartrate (Lopressor) 25 mg PO BID [facility] Last Admin: 06/23/18 10:31 Dose: 25 mg Multi-Ingredient Cream (Hydrocerin Cream) 0 ea TOP BID [facility] Last Admin: 06/23/18 10:33 Dose: 1 applic Ondansetron HCl (Zofran Inj) 4 mg IVP Q6H PRN PRN Reason: Nausea/Vomiting Prasugrel (Effient) 10 mg PO DAILY [facility] Last Admin: 06/23/18 10:32 Dose: 10 mg Sitagliptin Phosphate (Januvia) 50 mg PO DAILY [facility] Last Admin: 06/23/18 10:30 Dose: 50 mg Vitamin B Complex/Vit C/Folic Acid (Nephro-Maribel) 1 tab PO 0800 [facility] Last Admin: 06/23/18 10:31 Dose: 1 tab Zolpidem Tartrate (Ambien) 10 mg PO HS [facility]; Protocol Last Admin: 06/22/18 21:32 Dose: 10 mg - Labs Labs: 06/23/18 06:00 06/23/18 06:00 PT 14.2 SECONDS (9.4-12.5) H 06/16/18 05:25 INR 1.23 06/16/18 05:25 APTT 32.9 Seconds (25.1-36.5) 06/16/18 05:25 Attending/Attestation - Attestation I have personally seen and examined this patient.: Yes I have fully participated in the care of the patient.: Yes I have reviewed all pertinent clinical information, including history, physical exam and plan: Yes
[2018-06-21] MEDS: Potassium Chloride 20 mEq ER Tab PO SCH (10:13)
[2018-06-21] MEDS ORDERED: Enoxaparin 60 mg Syringe SC SCH (13:00)
--- NOTE | 2018-06-21 13:06 | PN ---
DATE: 06/21/2018 SUBJECTIVE: I saw her resting in bed. She is having some pain. She is not feeling that well. She is not sleeping that well. I increased her Ambien to 10 mg for tonight. She is also on Cozaar, Ecotrin, Effient, Eliquis is on hold, Fergon, Glucophage is on hold. She is going for cardiac cath. I think she will need to have peripheral vascular stenting. Hydrocerin cream, Imdur, Januvia, Lipitor, Maxipime IV, Nephro-Maribel, Norvasc, vitamin B12, and Zyvox. PHYSICAL EXAMINATION: VITAL SIGNS: She has 98.6 temperature, 95 pulse, 125/80 blood pressure, 20 respiratory rate, 96% on O2 sat on nasal cannula. HEENT: Atraumatic, normocephalic. Throat is moist. NECK: Supple. HEART: Regular rate. LUNGS: Decreased breath sounds, but clear, poor effort. No wheezes. No rhonchi. No rales. ABDOMEN: Soft, nontender. Positive bowel sounds. EXTREMITIES: Tenderness to palpation. She has CAD, PAD, CHF, BARTOLO, and DM. LABORATORY DATA: She has a 9.1 white count, 10.2 hemoglobin, 31.4 hematocrit with 250 platelets. The 10.2 hemoglobin after a unit of blood given yesterday. She has 140 sodium, potassium 3.8, BUN is 23, creatinine 0.8, GFR is greater than 60, sugar is 120, calcium is 8.5. Total bilirubin is 0.4, AST is 34, ALT is 40, alk phos is 96, total protein is 5.6. ASSESSMENT AND PLAN: She is being seen by Infectious Disease, Renal, Cardiology. She is on intravenous antibiotics. Has a bone scan pending today. They will let us know if there is anything in the bone. She could not get an MRI. She is still on Zyvox and intravenous antibiotics per Infectious Diseases and she might need eventually to have a stent placed in her leg from Interventional Radiology if they think they can do it or continue with aggressive treatment and care. She might need to go to [facility] first before she gets this procedure done. Waiting for a note on Dr. Lei Kikr's consult for the peripheral vascular disease. Rick Chisholm DO
--- NOTE | 2018-06-21 14:17 | CP.PCM.PN ---
Subjective - Date & Time of Evaluation Date of Evaluation: 06/21/18 Time of Evaluation: 14:16 - Subjective Subjective: RENAL FOLLOW UP subj: seen and examined s/p stent she feels usual health. denies CP/SOB/nausea/vomiting. c/o leg pans o/e: vss gen: nad sclera: anicteric op: clear neck: supple no thyromegaly lungs: cta b/l abd: soft nt nd no organomegaly ext: no edema neuro: a+ox3 no focal deficit psych: nml affect skin no rash A/P: ARF/ Anemia/ CAD/ Hypertension/ CHF/PVD/non obs calculus plan: BARTOLO is resolved cr back to baseline. pt overall stable from renal perspective due to recent FDA concerns, changed diovan to losartan 100 mg/day bp high, restarted lasix 40 mg/day with KCL 20 meq/day cad and CHF management as per cardiology added iron, MVI and B12 supplements. PRBC as needed had d/w son and team Objective - Vital Signs/Intake and Output Vital Signs (last 24 hours): Temp Pulse Resp BP Pulse Ox 98.1 F 95 H 18 152/84 H 96 06/21/18 12:00 06/21/18 12:00 06/21/18 12:00 06/21/18 12:00 06/21/18 06:00 Intake and Output: 06/21/18 06/21/18 06:59 18:59 Intake Total 900 Output Total 100 Balance 800 - Medications Medications: Current Medications Amlodipine Besylate (Norvasc) 5 mg PO DAILY [facility] Last Admin: 06/21/18 09:00 Dose: 5 mg Apixaban (Eliquis) 2.5 mg PO BID [facility]; Protocol Aspirin (Ecotrin) 81 mg PO DAILY [facility] Last Admin: 06/21/18 09:00 Dose: 81 mg Atorvastatin Calcium (Lipitor) 40 mg PO DIN [facility] Last Admin: 06/20/18 18:21 Dose: 40 mg Cyanocobalamin (Vitamin B12 1000 Mcg Tab) 1,000 mcg PO DAILY [facility] Last Admin: 06/21/18 09:00 Dose: 1,000 mcg Enoxaparin Sodium (Lovenox) 60 mg SC Q12H [facility]; Protocol Last Admin: 06/21/18 13:12 Dose: 60 mg Ferrous Gluconate (Fergon) 324 mg PO TID [facility] Last Admin: 06/21/18 13:07 Dose: 324 mg Furosemide (Lasix) 40 mg PO DAILY [facility] Last Admin: 06/21/18 10:13 Dose: 40 mg Cefepime HCl (Maxipime 1gm) 1 gm in 100 mls @ 25 mls/hr IVPB Q12 [facility]; Protocol Stop: 06/24/18 12:46 Last Admin: 06/21/18 09:01 Dose: 25 mls/hr Insulin Human Regular (Humulin R Med) 0 units SC ACHS [facility]; Protocol Last Admin: 06/21/18 11:54 Dose: Not Given Isosorbide Mononitrate (Imdur) 60 mg PO DAILY [facility] Last Admin: 06/21/18 09:00 Dose: 60 mg Linezolid (Zyvox) 600 mg PO BID [facility]; Protocol Stop: 06/24/18 18:01 Last Admin: 06/21/18 09:00 Dose: 600 mg Losartan Potassium (Cozaar) 100 mg PO DAILY [facility] Last Admin: 06/21/18 09:08 Dose: 100 mg Metformin HCl (Glucophage) 1,000 mg PO BID [facility] Multi-Ingredient Cream (Hydrocerin Cream) 0 ea TOP BID [facility] Last Admin: 06/21/18 09:01 Dose: 1 applic Potassium Chloride (K-Dur 20 Meq Er Tab) 20 meq PO BRK [facility] Last Admin: 06/21/18 10:13 Dose: 20 meq Prasugrel (Effient) 10 mg PO DAILY [facility] Last Admin: 06/21/18 09:00 Dose: 10 mg Sitagliptin Phosphate (Januvia) 50 mg PO DAILY [facility] Last Admin: 06/21/18 09:00 Dose: 50 mg Vitamin B Complex/Vit C/Folic Acid (Nephro-Maribel) 1 tab PO 0800 [facility] Last Admin: 06/21/18 09:00 Dose: 1 tab Zolpidem Tartrate (Ambien) 10 mg PO HS [facility]; Protocol - Labs Labs: 06/21/18 06:15 06/21/18 06:15 PT 14.2 SECONDS (9.4-12.5) H 06/16/18 05:25 INR 1.23 06/16/18 05:25 APTT 32.9 Seconds (25.1-36.5) 06/16/18 05:25
--- NOTE | 2018-06-21 15:02 | PN ---
DATE: 06/21/2018 SUBJECTIVE: The patient is asymptomatic in bed. PHYSICAL EXAMINATION: VITAL SIGNS: Blood pressure 152/84, heart rates in the 90s. NECK: Negative JVD. LUNGS: Without rales. HEART: Reveal S1, S2. EXTREMITIES: No change. LABORATORY DATA: Hemoglobin is 10.2. Chemistries, creatinine remains at 0.8, glucose is 120. IMPRESSION: 1. Stable post multivessel percutaneous transluminal coronary angioplasty and stent. 2. Coronary artery disease. 3. Diabetes mellitus. 4. Severe peripheral vascular disease. 5. History of pulmonary embolism. Given these findings, we will continue to monitor his creatinine. We will continue his aspirin, Effient and we will place the patient on subcu Lovenox to protect because of her recent pulmonary embolism. Awaiting intervention of her peripheral vascular disease. Lei Rivera MD
--- NOTE | 2018-06-21 19:19 | PN ---
DATE: 06/21/2018 Progress note dated 06/21/2018 at 06:00 p.m. SUBJECTIVE: I reviewed the lower extremity arteriogram performed by Dr. Rivera and spoke to him briefly. The patient continues to have rest pain and nuno ischemia of the left forefoot. 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 There is one-vessel tibial runoff via the left posterior tibial artery with multiple stenoses. Ms. Iris Padgett has had multiple coronary procedures recently and a significant amount of contrast. I would like to separate the interventions and contrast by a few days. She is scheduled for lower extremity arteriogram on Tuesday. We will hydrate over the weekend and check labs. I spoke to her son on the phone_. Hopefully, the popliteal artery and tibial vessel can be recanalized and the limb salvaged. Obviously, she is not a good surgical candidate Lei Kirk MD MTDD
[2018-06-22 06:48] LABS: ALB/GLOB RATIO 0.9 (1.1-1.8); ALBUMIN 2.6 g/dL (3.0-4.8); ALT/SGPT 39 U/L (7-56); AST/SGOT 29 U/L (14-36); BLOOD UREA NITROGEN 19 mg/dL (7-21); CALCIUM 8.5 mg/dL (8.4-10.5); GFR NON-AFRICAN AMERICAN > 60
[2018-06-22 07:04] LABS: HEMOGLOBIN 10.1 g/dL (12.0-16.0); MEAN CELL VOLUME 79.4 fl (80.0-105.0); MEAN CORPUSCULAR HEMOGLOBIN 25.6 pg (25.0-35.0); MEAN CORPUSCULAR HGB CONC 32.3 g/dl (31.0-37.0); MEAN PLATELET VOLUME 9.2 fl (7.0-11.0); RBC 3.94 10^6/uL (3.5-6.1); RED CELL DISTRIBUTION WIDTH 13.6 % (11.5-14.5); WHITE BLOOD COUNT 8.6 10^3/uL (4.5-11.0)
[2018-06-22] MEDS: Enoxaparin 60 mg Syringe SC SCH ×2 (07:13→18:58)
[2018-06-22] MEDS: Insulin Reg-MEDIUM-Coverage SC SCH ×4 (08:34→21:39)
[2018-06-22] MEDS: Potassium Chloride 20 mEq ER Tab PO SCH (08:42)
[2018-06-22] MEDS: Cefepime 1gm in NS 100ml 1 GM/100 ML BAG IVPB SCH ×3 (10:19→21:45)
[2018-06-22] MEDS: Multivitamin Vitamin B Complex (Nephro-Vite) Tab PO SCH (10:22)
[2018-06-22] MEDS: Hydrocerin(120 gm) TOP SCH ×2 (10:23→18:58)
--- NOTE | 2018-06-22 11:00 | PN ---
DATE: 06/22/2018 CARDIOLOGY FOLLOWUP SUBJECTIVE: The patient is out of bed and ambulated without issues. PHYSICAL EXAMINATION: VITAL SIGNS: Blood pressure 145/77, heart rate is in the 80s. NECK: Negative JVD. LUNGS: Without rales. HEART: Reveals S1, S2. EXTREMITIES: Decreased pulses. LABORATORY DATA: BUN and creatinine are now 11 and 0.8. Hemoglobin is 10.1. Glucose is 113. IMPRESSION: 1. Stable post percutaneous transluminal coronary angioplasty and stent of two vessels. 2. Coronary artery disease. 3. Severe peripheral vascular disease. 4. Diabetes mellitus. 5. Renal insufficiency. 6. History of pulmonary embolism. Given these findings, we will continue to aggressively hydrate the patient in preparation for his peripheral vascular procedure on Tuesday. We will continue his Lovenox and stop. His last dose should be on Tuesday morning. Lei Rivera MD
--- NOTE | 2018-06-22 14:56 | PN ---
DATE: 06/22/2018 SUBJECTIVE: She was resting comfortably in bed. She is doing well. She is eating okay. She is going to go Tuesday with Dr. Lei Kirk for stent placement for circulation in the leg. MEDICATIONS: She is on Ambien, Cozaar, Ecotrin, Effient, Eliquis is on hold, Fergon, Glucophage, insulin, Hydrocerin cream, Imdur, Januvia, potassium, Lasix, Lipitor, Lovenox, Maxipime IV, Nephro-Maribel, Norvasc, IV fluids, vitamin B12 and Zyvox. PHYSICAL EXAMINATION: VITAL SIGNS: She has a 97.7 temperature, 89 pulse, 145/77 blood pressure, 20 respiratory rate, and 96% O2 sat on room air. HEENT: Head is atraumatic and normocephalic. GENERAL: She is alert, looking at me, talking, happy, smiling, comfortable, and happy about the procedure for Tuesday. She is status post cardiac cath and stents by Dr. Rivera. HEART: Regular rate. LUNGS: Decreased breath sounds, but clear. Fair inspiration. ABDOMEN: Soft and nontender. Positive bowel sounds. EXTREMITIES: Still sore, some redness in the feet. Poor circulations. LABORATORY DATA: She has 8.6 white count, 10.1 hemoglobin, 31.3 hematocrit with 202 platelets. Sodium 139, potassium 3.7, BUN 19, creatinine 0.8, GFR greater than 60, sugar is 110, calcium is 8.5, total bili is 0.4, AST is 29, ALT is 39, alk phos 89, and total protein is 5.4. ASSESSMENT AND PLAN: She is being seen by Cardiology Dr. Lei Kirk, Renal and Infectious Disease. They are going to hydrate over the weekend. Hopefully, we will do the procedure on Tuesday with Dr. Lei Kirk. Continue with IV antibiotics. Check her labs tomorrow. Rick Chisholm DO
--- NOTE | 2018-06-22 15:08 | PN ---
DATE: 06/22/2018 The patient is in bed, seen earlier today in 274, bed 1. No fevers and no chills. PHYSICAL EXAMINATION: VITAL SIGNS: Temperature is 98, blood pressure is 140/70, respiratory rate of 18. HEENT: Unremarkable. NECK: Supple. LUNGS: Have decreased breath sounds. HEART: Normal S1, S2. ABDOMEN: Soft, nontender. LABORATORY EXAMINATION: Reveals a white count of 8.6, hemoglobin of 10. Chemistries are noted and urinalysis is noted. Microbiology reveals blood cultures are negative. The patient had a bone scan. The results are not available at this time. ASSESSMENT AND PLAN: This is a 72-year-old female, admitted with shortness of breath, history of deep venous thrombosis, history of systolic congestive heart failure, hypertension, anxiety, and kidney disease. On this admission, the patient was admitted with acute systolic congestive heart failure on top of chronic congestive heart failure with a left foot cellulitis, which is greatly improved, status post cardiac catheterization and angioplasty placement with a bare-metal stent. Today is day #8 of Zyvox and cefepime. Waiting for bone scan. If the bone scan is negative, we would discontinue Zyvox and cefepime. The patient has had adequate therapy for cellulitis. If the bone scan is positive, we will prolong antibiotics, we will review with you. If the orders reveal the patient has Zyvox and cefepime to be active. Dakota Stewart MD
[2018-06-23] MEDS: Enoxaparin 60 mg Syringe SC SCH ×2 (05:45→18:13)
[2018-06-23 07:21] LABS: HEMOGLOBIN 10.1 g/dL (12.0-16.0); MEAN CELL VOLUME 79.4 fl (80.0-105.0); MEAN CORPUSCULAR HEMOGLOBIN 25.6 pg (25.0-35.0); MEAN CORPUSCULAR HGB CONC 32.3 g/dl (31.0-37.0); MEAN PLATELET VOLUME 9.2 fl (7.0-11.0); RBC 3.94 10^6/uL (3.5-6.1); RED CELL DISTRIBUTION WIDTH 13.9 % (11.5-14.5); WHITE BLOOD COUNT 8.8 10^3/uL (4.5-11.0)
[2018-06-23 08:01] LABS: ALB/GLOB RATIO 0.9 (1.1-1.8); ALBUMIN 2.9 g/dL (3.0-4.8); ALT/SGPT 33 U/L (7-56); AST/SGOT 33 U/L (14-36); BLOOD UREA NITROGEN 15 mg/dL (7-21); CALCIUM 8.2 mg/dL (8.4-10.5); GFR NON-AFRICAN AMERICAN > 60
[2018-06-23] MEDS: Insulin Reg-MEDIUM-Coverage SC SCH ×4 (08:15→22:30)
[2018-06-23] MEDS ORDERED: Potassium Chloride 20 mEq ER Tab PO ONE (08:33)
--- NOTE | 2018-06-23 09:13 | PN ---
DATE: 06/23/2018 SUBJECTIVE: I saw her this morning in bed. She is nauseous. She is not feeling well this morning, ate her breakfast. She is telling me on Tuesday she is going to go for a stent placement with Dr. Kirk. She already had cardiac cath with Dr. Rivera. She is currently on IV fluids, Zolpidem, Cozaar, Ecotrin, Effient, Eliquis, iron, metformin, insulin, creams, Januvia, potassium replacement, Lasix, Lipitor, Lovenox, cefepime IV by Infectious Disease, vitamin B12, Xanax, Zofran, and Zyvox. PHYSICAL EXAMINATION: VITAL SIGNS: She has a 98.3 temperature, 94 pulse, 155/86 blood pressure, 20 respiratory rate, 96% sat on nasal cannula. HEENT: Head is atraumatic, normocephalic. HEART: Regular rate. LUNGS: Decreased breath sounds but clear. ABDOMEN: Soft, nontender. Positive bowel sounds, even though she is nauseous. EXTREMITIES: Reddened and there is going to have a stent placement on Tuesday. LABORATORY DATA: She has a 137 sodium; potassium 3.4, was replaced; BUN 15; creatinine 0.9; GFR is greater than 60, sugar is 98, calcium is 8.2. Total bili is 0.4, AST is 33, ALT is 33, alk phos 91, total protein 6.1. She has an 8.8 white count, 10.1 hemoglobin, 31.3 hematocrit with 186 platelets. We will check her labs tomorrow, give her some Zofran for the nauseousness she ate. We will check her labs. Check the potassium and on Tuesday, she will have a procedure with Dr. Lei Kirk. Rick Chisholm DO MTDD
--- NOTE | 2018-06-23 09:46 | PCM.PAD ---
PAD Screening - Peripheral Artery Disease Assessment When you walk, do you experience aching, cramping or pain in your legs, thighs, or buttocks: Yes (pt scheduled for lower ext angiogram Tuesday) When do you feel the pain: After walking 100 yards If you have pain, does the pain subside with rest: No Have you ever been diagnosed with Peripheral Vascular Disease or been diagnosed as having poor circulation: Yes Have you ever had surgery, balloon procedures or stents in your heart, kidneys, belly, legs, or arms: Yes Do you have any painful sores or ulcers on legs or feet that do not heal: Yes Are your legs discolored or bluish: Yes PVD Past Medical & Familial Hx - Past Medical History Hx Diabetes Mellitus Type 2: Yes Hx Hypercholesterolemia: Yes Hx Hypertension: Yes
--- NOTE | 2018-06-23 09:49 | IP.NPCORE ---
Heart Failure Core Measure - Heart Failure Ejection Fraction: Less Than 40 % Left Ventricular Function to be assessed after discharge: Yes AnticoagulationTherapy for Atrial Fibrillation/Atrialflutter: Yes Aldosterone Antagonist Prescribed: No Contraindication/Reason for not providing: renal insuff Hydralazine Nitrate Prescribed: Yes Implantable Cardioverter Defibrillator Therapy: No Contraindication/Reason for not providing: n/a Cardiac Resynchronization Therapy Prescribed: Yes - Follow up Follow Up Date (must be within 7 days from discharge): 06/30/18 Follow Up Time: 13:00
--- NOTE | 2018-06-23 09:54 | NM ---
Date of service: 06/21/2018 PROCEDURE: Triple Phase Bone Scan HISTORY: L Lower ext r/o osteo COMPARISON: None available. TECHNIQUE: Following administration of 20.9 miCu of Tc MDP multiplanar triple phase bone scan of the bilateral lower extremities including the distal tibia fibula and feet was obtained in the flow, blood pool and delayed phases of tracer uptake. FINDINGS: There is mild diffuse increased activity in the left lower extremity. There is also increased diffuse activity on the immediate phase. There is no focal abnormality seen to suggest osteomyelitis IMPRESSION: Probable cellulitis left leg. No focal abnormality to suggest osteomyelitis
[2018-06-23] MEDS ORDERED: Potassium Chloride 20 mEq ER Tab PO SCH (10:15)
[2018-06-23] MEDS: Multivitamin Vitamin B Complex (Nephro-Vite) Tab PO SCH (10:31)
[2018-06-23] MEDS: Hydrocerin(120 gm) TOP SCH ×2 (10:33→18:15)
--- NOTE | 2018-06-23 13:26 | PN ---
DATE: 06/23/2018 SUBJECTIVE: The patient is in bed, in no acute distress. The patient is seen earlier this morning. Comfortable and in no acute distress, nontoxic. Uneventful night. PHYSICAL EXAMINATION: VITAL SIGNS: Temperature of 98, blood pressure is 150/70, respiratory rate of 20, heart rate of 94. HEENT: Examination of HEENT is unremarkable. NECK: Supple. LUNGS: Have decreased breath sounds. HEART: Normal S1, S2. ABDOMEN: Soft, nontender. LABORATORY DATA: Laboratory examination reveals a white count of 8.8, hemoglobin of 10, platelets of 186 and chemistries reveals a BUN of 15, creatinine of 0.9 and urinalysis is noted. ASSESSMENT AND PLAN: A 72-year-old with a history of deep venous thrombosis, history of systolic congestive heart failure, hypertension, anxiety and the patient had kidney disease and admitted with acute systolic congestive heart failure on top of chronic congestive heart failure and left foot cellulitis which is completely resolved, status post cardiac catheterization, angioplasty and placement of a stent with bare metal stents and the patient has completed, today is 9th day of Zyvox and cefepime. The bone scan is reported to be negative and we will discontinue the antibiotics. No further antibiotics needed at this point. The patient is scheduled for arteriogram for Tuesday. Dakota Stewart MD
--- NOTE | 2018-06-23 15:33 | CP.PCM.PN ---
Subjective - Date & Time of Evaluation Date of Evaluation: 06/23/18 Time of Evaluation: 15:32 - Subjective Subjective: RENAL FOLLOW UP subj: seen and examined s/p stent she feels usual health. denies CP/SOB/nausea/vomiting. c/o leg pans o/e: vss gen: nad sclera: anicteric op: clear neck: supple no thyromegaly lungs: cta b/l abd: soft nt nd no organomegaly ext: no edema neuro: a+ox3 no focal deficit psych: nml affect skin no rash A/P: ARF/ Anemia/ CAD/ Hypertension/ CHF/PVD/non obs calculus plan: BARTOLO is resolved cr back to baseline. pt overall stable from renal perspective due to recent FDA concerns, changed diovan to losartan 100 mg/day. resume beta blockers bp high, restarted lasix 40 mg/day with KCL 20 meq/day. hold after today for PVD angiogram on tuesday. pre-procedure IVF to reduce risk of kidney injury cad and CHF management as per cardiology added iron, MVI and B12 supplements. PRBC as needed had d/w son and team Objective - Vital Signs/Intake and Output Vital Signs (last 24 hours): Temp Pulse Resp BP Pulse Ox 98.3 F 87 19 129/66 96 06/23/18 12:00 06/23/18 14:00 06/23/18 12:00 06/23/18 12:00 06/23/18 05:50 Intake and Output: 06/23/18 06/23/18 06:59 18:59 Intake Total 840 Output Total 700 Balance 140 - Medications Medications: Current Medications Amlodipine Besylate (Norvasc) 5 mg PO DAILY [facility] Last Admin: 06/23/18 10:31 Dose: 5 mg Apixaban (Eliquis) 2.5 mg PO BID [facility]; Protocol Aspirin (Ecotrin) 81 mg PO DAILY [facility] Last Admin: 06/23/18 10:32 Dose: 81 mg Atorvastatin Calcium (Lipitor) 40 mg PO DIN [facility] Last Admin: 06/22/18 18:52 Dose: 40 mg Cyanocobalamin (Vitamin B12 1000 Mcg Tab) 1,000 mcg PO DAILY [facility] Last Admin: 06/23/18 10:32 Dose: 1,000 mcg Enoxaparin Sodium (Lovenox) 60 mg SC 0600,1800 [facility]; Protocol Stop: 06/25/18 12:00 Last Admin: 06/23/18 05:45 Dose: 60 mg Ferrous Gluconate (Fergon) 324 mg PO TID [facility] Last Admin: 06/23/18 14:29 Dose: 324 mg Sodium Chloride (Sodium Chloride 0.45%) 1,000 mls @ 60 mls/hr IV .[id number] [facility] Stop: 06/27/18 12:00 Insulin Human Regular (Humulin R Med) 0 units SC ACHS [facility]; Protocol Last Admin: 06/23/18 12:28 Dose: Not Given Isosorbide Mononitrate (Imdur) 60 mg PO DAILY [facility] Last Admin: 06/23/18 10:32 Dose: 60 mg Losartan Potassium (Cozaar) 100 mg PO DAILY [facility] Last Admin: 06/23/18 10:32 Dose: 100 mg Metformin HCl (Glucophage) 1,000 mg PO BID [facility] Last Admin: 06/23/18 10:32 Dose: 1,000 mg Metoprolol Tartrate (Lopressor) 25 mg PO BID [facility] Last Admin: 06/23/18 10:31 Dose: 25 mg Multi-Ingredient Cream (Hydrocerin Cream) 0 ea TOP BID [facility] Last Admin: 06/23/18 10:33 Dose: 1 applic Ondansetron HCl (Zofran Inj) 4 mg IVP Q6H PRN PRN Reason: Nausea/Vomiting Prasugrel (Effient) 10 mg PO DAILY [facility] Last Admin: 06/23/18 10:32 Dose: 10 mg Sitagliptin Phosphate (Januvia) 50 mg PO DAILY [facility] Last Admin: 06/23/18 10:30 Dose: 50 mg Vitamin B Complex/Vit C/Folic Acid (Nephro-Maribel) 1 tab PO 0800 [facility] Last Admin: 06/23/18 10:31 Dose: 1 tab Zolpidem Tartrate (Ambien) 10 mg PO HS [facility]; Protocol Last Admin: 06/22/18 21:32 Dose: 10 mg - Labs Labs: 06/23/18 06:00 06/23/18 06:00 PT 14.2 SECONDS (9.4-12.5) H 06/16/18 05:25 INR 1.23 06/16/18 05:25 APTT 32.9 Seconds (25.1-36.5) 06/16/18 05:25
--- NOTE | 2018-06-23 20:13 | PN ---
DATE: 06/23/[address] Lei Rivera. SUBJECTIVE: The patient denies any chest pain at this time. PHYSICAL EXAMINATION: VITAL SIGNS: Blood pressure 129/66, heart rate 91, temperature 98.3, respirations 19. HEENT: Head normocephalic. CHEST: Clear. HEART: S1 and S2 regular. EXTREMITIES: No edema. LABORATORY DATA: Today's SMA-7: Sodium 137, potassium 3.4, chloride 104, CO2 28, glucose 98, BUN 15, creatinine 0.9. Today's hemoglobin and hematocrit 10.1 and 31.3, white count and platelet count are within normal limits. Bone scan revealed probable cellulitis of the left leg. No focal abnormalities that suggest osteomyelitis. ASSESSMENT: 1. Status post percutaneous transluminal coronary angioplasty and stent, status post two-vessel percutaneous coronary intervention. 2. Severe peripheral vascular disease. 3. Uncontrolled diabetes mellitus. 4. Hypokalemia. 5. History of pulmonary embolism. RECOMMENDATIONS: Continue Cozaar at 100 mg daily, aspirin 81 mg once a day, Eliquis 2.5 mg once a day, Effient 10 mg once a day, Glucophage 1 g twice a day, Imdur 60 mg once a day, Lopressor 25 mg twice a day, Lipitor 40 mg once a day. The patient will undergo femoral artery angioplasty next week. Marlon Tamayo MD
[2018-06-24] MEDS: Enoxaparin 60 mg Syringe SC SCH ×2 (05:39→17:56)
[2018-06-24 07:45] LABS: HEMOGLOBIN 9.9 g/dL (12.0-16.0); MEAN CELL VOLUME 80.1 fl (80.0-105.0); MEAN CORPUSCULAR HEMOGLOBIN 25.3 pg (25.0-35.0); MEAN CORPUSCULAR HGB CONC 31.6 g/dl (31.0-37.0); MEAN PLATELET VOLUME 8.9 fl (7.0-11.0); RBC 3.91 10^6/uL (3.5-6.1); WHITE BLOOD COUNT 8.5 10^3/uL (4.5-11.0)
[2018-06-24 07:54] LABS: ALB/GLOB RATIO 0.9 (1.1-1.8); ALBUMIN 3.1 g/dL (3.0-4.8); ALT/SGPT 37 U/L (7-56); AST/SGOT 29 U/L (14-36); BLOOD UREA NITROGEN 15 mg/dL (7-21); CALCIUM 8.5 mg/dL (8.4-10.5); GFR NON-AFRICAN AMERICAN 54
[2018-06-24] MEDS: Insulin Reg-MEDIUM-Coverage SC SCH ×4 (08:45→22:25)
[2018-06-24] MEDS: Multivitamin Vitamin B Complex (Nephro-Vite) Tab PO SCH (08:47)
--- NOTE | 2018-06-24 12:08 | PN ---
DATE: 06/24/2018 SUBJECTIVE: I saw her resting comfortably in bed. She has lots of questions for me this morning. She is going for a peripheral vascular stent possibly placing with Dr. Lei Kirk on Tuesday. She had questions to me, she is nervous. MEDICATIONS: She has got Ambien, Cozaar, Ecotrin, Effient, Eliquis on hold, Fergon, Glucophage, Hydrocerin cream, Imdur, Januvia, Lipitor, Lopressor, Lovenox, Nephro-Maribel, Norvasc, IV fluids, vitamin B12 and Zofran. PHYSICAL EXAMINATION: VITAL SIGNS: She has a 98 temperature, 91 pulse, 154/77 blood pressure, 18 respiratory rate, 96% O2 sat on nasal cannula. HEENT: Head is atraumatic, normocephalic. HEART: Regular rate. LUNGS: Decreased breath sounds but clear. ABDOMEN: Soft, nontender. Positive bowel sounds. EXTREMITIES: Mildly red. No edema. Poor pulses. She needs to have a stent placed. LABORATORY DATA: She has a 8.5 white count, 9.9 hemoglobin, 31.3 hematocrit with 165 platelets. Sodium 139, potassium is 3.9, BUN is 50, creatinine 1, GFR is 54, sugar is 96, calcium is 8.5, total bili is 0.3, AST is 29, ALT is 37, alk phos 89, total protein is 6.3. She has positive occult blood. ASSESSMENT AND PLAN: I will call in GI. She has Podiatry on the case, Renal on the case, Infectious Disease on the case, interventional radiologist is on the case. Now with the thoughts of occult blood, I will consult GI for evaluation and she is here for peripheral vascular disease and undergo stent placement I hope on Tuesday with Dr. Lei Kirk. Rick Chisholm DO
--- NOTE | 2018-06-24 13:02 | CP.PCM.PN ---
<KaylaNatasha - Last Filed: 06/24/18 15:26> Subjective - Date & Time of Evaluation Date of Evaluation: 06/24/18 Time of Evaluation: 13:01 - Subjective Subjective: Podiatry progress note for Dr. Mcintosh/Dr Bojorquez 72 y/o female seen at bedside this morning for left heel ulceration. Denies acute overnight events. States she still has pain in the left foot that feels like a cramping throbbing pain. Denies any other pedal complaints. Denies F/C/N/V/CP/SOB Objective - Vital Signs/Intake and Output Vital Signs (last 24 hours): Temp Pulse Resp BP Pulse Ox 98.1 F 96 H 20 152/80 H 96 06/24/18 12:00 06/24/18 12:00 06/24/18 12:00 06/24/18 12:00 06/24/18 06:00 Intake and Output: 06/24/18 06/24/18 06:59 18:59 Intake Total 900 Output Total 1000 Balance -100 - Medications Medications: Current Medications Amlodipine Besylate (Norvasc) 5 mg PO DAILY [facility] Last Admin: 06/24/18 11:10 Dose: 5 mg Apixaban (Eliquis) 2.5 mg PO BID [facility]; Protocol Aspirin (Ecotrin) 81 mg PO DAILY [facility] Last Admin: 06/24/18 11:09 Dose: 81 mg Atorvastatin Calcium (Lipitor) 40 mg PO DIN [facility] Last Admin: 06/23/18 18:13 Dose: 40 mg Cyanocobalamin (Vitamin B12 1000 Mcg Tab) 1,000 mcg PO DAILY [facility] Last Admin: 06/24/18 11:10 Dose: 1,000 mcg Enoxaparin Sodium (Lovenox) 60 mg SC 0600,1800 [facility]; Protocol Stop: 06/25/18 12:00 Last Admin: 06/24/18 05:39 Dose: 60 mg Ferrous Gluconate (Fergon) 324 mg PO TID [facility] Last Admin: 06/24/18 11:09 Dose: 324 mg Sodium Chloride (Sodium Chloride 0.45%) 1,000 mls @ 60 mls/hr IV .[id number] [facility] Stop: 06/27/18 12:00 Insulin Human Regular (Humulin R Med) 0 units SC ACHS [facility]; Protocol Last Admin: 06/24/18 12:17 Dose: Not Given Isosorbide Mononitrate (Imdur) 60 mg PO DAILY [facility] Last Admin: 06/24/18 11:09 Dose: 60 mg Losartan Potassium (Cozaar) 100 mg PO DAILY [facility] Last Admin: 06/24/18 11:08 Dose: 100 mg Metformin HCl (Glucophage) 1,000 mg PO BID [facility] Last Admin: 06/24/18 11:09 Dose: 1,000 mg Metoprolol Tartrate (Lopressor) 25 mg PO BID [facility] Last Admin: 06/24/18 11:09 Dose: 25 mg Multi-Ingredient Cream (Hydrocerin Cream) 0 ea TOP BID [facility] Last Admin: 06/23/18 18:15 Dose: Not Given Ondansetron HCl (Zofran Inj) 4 mg IVP Q6H PRN PRN Reason: Nausea/Vomiting Prasugrel (Effient) 10 mg PO DAILY [facility] Last Admin: 06/24/18 11:09 Dose: 10 mg Sitagliptin Phosphate (Januvia) 50 mg PO DAILY [facility] Last Admin: 06/24/18 11:09 Dose: 50 mg Vitamin B Complex/Vit C/Folic Acid (Nephro-Maribel) 1 tab PO 0800 [facility] Last Admin: 06/24/18 08:47 Dose: 1 tab Zolpidem Tartrate (Ambien) 10 mg PO HS [facility]; Protocol Last Admin: 06/23/18 22:30 Dose: 10 mg - Labs Labs: 06/24/18 07:15 06/24/18 07:15 PT 14.2 SECONDS (9.4-12.5) H 06/16/18 05:25 INR 1.23 06/16/18 05:25 APTT 32.9 Seconds (25.1-36.5) 06/16/18 05:25 - Constitutional Appears: Well, Non-toxic, No Acute Distress - Extremities Exam Additional comments: Bilateral lower extremity exam: Vascular: DP/pt pulses nonpalpable B/L, TG warm to cool on R, TG warm to cold on L. CFT <5 secs to all digits, no edema noted. pinpoint erythematous lesions possibly indicative of ischemic changes noted on the dorsal aspect of the left f oot Derm: no IDM, no open lesions, xerosis and peeling of skin noted B/L, L>R. Deep tissue injury to the heel on the left. Erythema and ecchymosis noted to the second and third digits. No clinical signs of infection Ortho: moderate pain on palpation to the left foot Neuro: protective sensation grossly intact - Neurological Exam Neurological Exam: Alert, Awake, Oriented x3 - Psychiatric Exam Psychiatric exam: Normal Affect, Normal Mood Assessment and Plan - Assessment and Plan (Free Text) Assessment: 72 y/o female seen at bedside for possible dermatitis of the left foot with vascular insufficiency Plan: Patient seen and evaluated Discussed plan with Dr. Bojorquez Chart, labs and vitals reviewed Xeroform and DSD applied to L foot ELISABET/PVR; left iliac and bilateral SFA occlusive disease Vascular surgery on board, appreciate recommendations Eucerin cream to be applied B/L BID by nursing staff multipodus boots ordered to be worn at all times <Romulo Bojorquez - Last Filed: 06/27/18 12:03> Objective - Vital Signs/Intake and Output Vital Signs (last 24 hours): Temp Pulse Resp BP Pulse Ox 98.5 F 109 H 18 118/79 100 06/27/18 06:00 06/27/18 10:00 06/27/18 06:00 06/27/18 09:31 06/27/18 06:00 Intake and Output: 06/27/18 06/27/18 06:59 18:59 Intake Total 1080 Output Total 800 180 Balance 280 -180 - Medications Medications: Current Medications Amlodipine Besylate (Norvasc) 5 mg PO DAILY [facility] Last Admin: 06/27/18 09:31 Dose: 5 mg Apixaban (Eliquis) 2.5 mg PO BID [facility]; Protocol Aspirin (Ecotrin) 81 mg PO DAILY [facility] Last Admin: 06/27/18 09:31 Dose: 81 mg Atorvastatin Calcium (Lipitor) 40 mg PO DIN [facility] Last Admin: 06/26/18 22:21 Dose: 40 mg Cyanocobalamin (Vitamin B12 1000 Mcg Tab) 1,000 mcg PO DAILY [facility] Last Admin: 06/27/18 09:31 Dose: 1,000 mcg Ferrous Gluconate (Fergon) 324 mg PO TID [facility] Last Admin: 06/27/18 09:31 Dose: 324 mg Insulin Human Regular (Humulin R Med) 0 units SC [facility]; Protocol Last Admin: 06/27/18 07:55 Dose: Not Given Isosorbide Mononitrate (Imdur) 60 mg PO DAILY [facility] Last Admin: 06/27/18 09:31 Dose: 60 mg Losartan Potassium (Cozaar) 100 mg PO DAILY [facility] Last Admin: 06/27/18 09:31 Dose: 100 mg Metformin HCl (Glucophage) 1,000 mg PO BID [facility] Last Admin: 06/25/18 11:32 Dose: Not Given Metoprolol Tartrate (Lopressor) 25 mg PO BID [facility] Last Admin: 06/27/18 09:31 Dose: 25 mg Multi-Ingredient Cream (Hydrocerin Cream) 0 ea TOP BID [facility] Last Admin: 06/27/18 09:36 Dose: 1 applic Ondansetron HCl (Zofran Inj) 4 mg IVP Q6H PRN PRN Reason: Nausea/Vomiting Pantoprazole Sodium (Protonix Ec Tab) 40 mg PO 0600 [facility] Prasugrel (Effient) 10 mg PO DAILY [facility] Last Admin: 06/27/18 09:35 Dose: 10 mg Sitagliptin Phosphate (Januvia) 50 mg PO DAILY [facility] Last Admin: 06/27/18 09:31 Dose: 50 mg Vitamin B Complex/Vit C/Folic Acid (Nephro-Maribel) 1 tab PO 0800 [facility] Last Admin: 06/27/18 09:31 Dose: 1 tab Zolpidem Tartrate (Ambien) 10 mg PO HS [facility]; Protocol Last Admin: 06/26/18 22:21 Dose: 10 mg - Labs Labs: 06/27/18 06:15 06/27/18 06:15 PT 14.2 SECONDS (9.4-12.5) H 06/16/18 05:25 INR 1.23 06/16/18 05:25 APTT 32.9 Seconds (25.1-36.5) 06/16/18 05:25 Attending/Attestation - Attestation I have personally seen and examined this patient.: Yes I have fully participated in the care of the patient.: Yes I have reviewed all pertinent clinical information, including history, physical exam and plan: Yes
--- NOTE | 2018-06-24 14:54 | PN ---
DATE: SUBJECTIVE: The patient denies any dizziness or chest pain. PHYSICAL EXAMINATION: VITAL SIGNS: Blood pressure 154/77, heart rate 91, temperature 98, respirations 18. HEENT: Normocephalic. CHEST: Clear. HEART: S1 and S2 regular. EXTREMITIES: Dressings are applied to the left foot. LABORATORY DATA: Today's hemoglobin and hematocrit 9.9 and 31.2, white count and platelet count are within normal limits. Today's SMA-7 is entirely within normal limits. Blood culture is negative . ASSESSMENT: 1. Coronary artery disease status post percutaneous coronary intervention. 2. Severe peripheral vascular disease. 3. Diabetes mellitus. 4. Improved hyperkalemia. 5. History of pulmonary embolism in the past. RECOMMENDATIONS: Continue Cozaar at 100 mg once a day, aspirin 81 mg once a day, Effient 10 mg once a day, Eliquis is on hold for now, continue Glucophage at 1 g twice a day, Lipitor 20 mg once a day, Imdur 60 mg once a day, Lopressor 25 mg twice a day, subcutaneous Lovenox 60 mg twice a day, Norvasc at 5 mg once a day. Marlon Tamayo MD
--- NOTE | 2018-06-24 18:00 | PN ---
DATE: 06/24/2018 SUBJECTIVE: The patient is in bed, in no acute distress. The patient is seen earlier. She is waiting for a procedure on Tuesday. She is awake and alert. She had an uneventful night over last night. PHYSICAL EXAMINATION: VITAL SIGNS: Temperature is 98, blood pressure is 120/70, respiratory rate of 18. HEENT: Unremarkable. NECK: Supple. LUNGS: Have decreased breath sounds. HEART: Normal S1, S2. ABDOMINAL: Soft, nontender. LABORATORY EXAMINATION: Reveals a white count is 8.5 and hemoglobin of 9. Chemistries reveals a BUN of 15, creatinine of 1. Urinalysis is noted. Microbiology is reviewed. Blood cultures are negative. ASSESSMENT AND PLAN: A 72-year-old female with history of deep vein thrombosis, history of systolic congestive heart failure, hypertension, anxiety, kidney disease, admitted on this admission with acute systolic congestive heart failure on top of chronic congestive heart failure. The patient also has a left foot cellulitis, which is now has completely resolved, status post cardiac catheterization, angioplasty and placement of a stent with bare-metal stent. She has completed antibiotic therapy over 7 days. The bone scan is reported to be negative. Currently, cellulitis is resolved. Negative bone scan. Currently, off of antibiotics. Review of the medications confirms the patient to be off of antibiotics and the patient is scheduled for intervention on Tuesday. Dakota Stewart MD
[2018-06-25] MEDS: Sodium Chloride 0.45% 1,000 ML IV SCH ×3 (06:27→22:40)
[2018-06-25] MEDS: Enoxaparin 60 mg Syringe SC SCH (06:27)
[2018-06-25 08:08] LABS: HEMOGLOBIN 9.9 g/dL (12.0-16.0); MEAN CELL VOLUME 80.4 fl (80.0-105.0); MEAN CORPUSCULAR HEMOGLOBIN 25.2 pg (25.0-35.0); MEAN CORPUSCULAR HGB CONC 31.3 g/dl (31.0-37.0); MEAN PLATELET VOLUME 8.9 fl (7.0-11.0); RBC 3.93 10^6/uL (3.5-6.1); RED CELL DISTRIBUTION WIDTH 13.9 % (11.5-14.5); WHITE BLOOD COUNT 10.2 10^3/uL (4.5-11.0)
[2018-06-25 08:19] LABS: BLOOD UREA NITROGEN 18 mg/dL (7-21)
[2018-06-25] MEDS: Insulin Reg-MEDIUM-Coverage SC SCH ×4 (08:20→21:57)
[2018-06-25] MEDS: Multivitamin Vitamin B Complex (Nephro-Vite) Tab PO SCH (08:23)
[2018-06-25 08:29] LABS: ALBUMIN 3.3 g/dL (3.0-4.8); ALT/SGPT 41 U/L (7-56); AST/SGOT 41 U/L (14-36); CALCIUM 8.4 mg/dL (8.4-10.5); GFR NON-AFRICAN AMERICAN > 60
--- NOTE | 2018-06-25 08:36 | CP.PCM.CON ---
<Donny Neely - Last Filed: 06/25/18 08:29> History of Present Illness - History of Present Illness History of Present Illness: GI Fellow PGY4, Consult note. Tammy Padgett is a 72F with Hx of T2DM, HTN, CKD and medication non- compliance and recent diagnosis of PE on Eliquis who has been in the hospital for 11 days. She originally presented this admission for leg cellulitis s/p abx and found to have significant PVD. Along the way she was found to have CAD and a stent was place. She is scheduled for peripheral catheterization Tuesday. We have been consulted for occult blood in stool. Patient denies any weight loss, or obvious bleeding in stool. She does not take acid suppression medications, but is on significant blood thinners given recent events (Effiant, Eliquis, aspirin). She admits having colonoscopy in this hospital ~10yrs ago. No significant findings reported per patient. PMHx - as above. PSHx - Cholecystectomy FMHx - Brother had Colon cancer. She does not know the details, as he lives in [place]. SocHx - Denies Etoh and smoking. 12pt ROS completed and negative except for above. Past Patient History - Past Social History Smoking Status: Never Smoked - CARDIAC Hx Hypercholesterolemia: Yes Hx Hypertension: Yes - PULMONARY Hx Respiratory Disorders: No - NEUROLOGICAL Hx Neurological Disorder: No - HEENT Hx HEENT Problems: No - RENAL Hx Chronic Kidney Disease: No - ENDOCRINE/METABOLIC Hx Diabetes Mellitus Type 2: Yes - HEMATOLOGICAL/ONCOLOGICAL Hx Blood Transfusions: No Hx Blood Transfusion Reaction: No - INTEGUMENTARY Hx Dermatological Problems: Yes Other/Comment: multiple small red areas of skin to right knee and lower right leg, thick toenails dry skin feet, ble +2 pitting edema, scratch feliz to r arm and lle - MUSCULOSKELETAL/RHEUMATOLOGICAL Hx Arthritis: Yes Hx Falls: Yes Hx Unsteady Gait: Yes Other/Comment: USES WALKER TO MOVE AROUND AT HOME - GASTROINTESTINAL Hx Gastrointestinal Disorders: (reflux) - GENITOURINARY/GYNECOLOGICAL Hx Genitourinary Disorders: No - PSYCHIATRIC Hx Psychophysiologic Disorder: Yes Hx Anxiety: Yes Hx Substance Use: No - SURGICAL HISTORY Hx Surgeries: Yes - ANESTHESIA Hx Anesthesia Reactions: No Hx Malignant Hyperthermia: No Meds Allergies/Adverse Reactions: Allergies Allergy/AdvReac Type Severity Reaction Status Date / Time No Known Allergies Allergy Verified 10/24/18 16:13 - Medications Medications: Current Medications Amlodipine Besylate (Norvasc) 5 mg PO DAILY [facility] Last Admin: 06/24/18 11:10 Dose: 5 mg Apixaban (Eliquis) 2.5 mg PO BID [facility]; Protocol Aspirin (Ecotrin) 81 mg PO DAILY [facility] Last Admin: 06/24/18 11:09 Dose: 81 mg Atorvastatin Calcium (Lipitor) 40 mg PO DIN [facility] Last Admin: 06/24/18 17:57 Dose: 40 mg Cyanocobalamin (Vitamin B12 1000 Mcg Tab) 1,000 mcg PO DAILY [facility] Last Admin: 06/24/18 11:10 Dose: 1,000 mcg Enoxaparin Sodium (Lovenox) 60 mg SC 0600,1800 [facility]; Protocol Stop: 06/25/18 12:00 Last Admin: 06/25/18 06:27 Dose: 60 mg Ferrous Gluconate (Fergon) 324 mg PO TID [facility] Last Admin: 06/24/18 17:57 Dose: 324 mg Sodium Chloride (Sodium Chloride 0.45%) 1,000 mls @ 60 mls/hr IV .[id number] [facility] Stop: 06/27/18 12:00 Last Admin: 06/25/18 06:27 Dose: 60 mls/hr Insulin Human Regular (Humulin R Med) 0 units SC ACHS [facility]; Protocol Last Admin: 06/25/18 08:20 Dose: Not Given Isosorbide Mononitrate (Imdur) 60 mg PO DAILY [facility] Last Admin: 06/24/18 11:09 Dose: 60 mg Losartan Potassium (Cozaar) 100 mg PO DAILY [facility] Last Admin: 06/24/18 11:08 Dose: 100 mg Metformin HCl (Glucophage) 1,000 mg PO BID [facility] Last Admin: 06/24/18 17:57 Dose: 1,000 mg Metoprolol Tartrate (Lopressor) 25 mg PO BID [facility] Last Admin: 06/24/18 17:56 Dose: 25 mg Multi-Ingredient Cream (Hydrocerin Cream) 0 ea TOP BID [facility] Last Admin: 06/23/18 18:15 Dose: Not Given Ondansetron HCl (Zofran Inj) 4 mg IVP Q6H PRN PRN Reason: Nausea/Vomiting Prasugrel (Effient) 10 mg PO DAILY [facility] Last Admin: 06/24/18 11:09 Dose: 10 mg Sitagliptin Phosphate (Januvia) 50 mg PO DAILY [facility] Last Admin: 06/24/18 11:09 Dose: 50 mg Vitamin B Complex/Vit C/Folic Acid (Nephro-Maribel) 1 tab PO 0800 [facility] Last Admin: 06/25/18 08:23 Dose: 1 tab Zolpidem Tartrate (Ambien) 10 mg PO HS [facility]; Protocol Last Admin: 06/24/18 22:25 Dose: 10 mg Physical Exam - Constitutional Appears: Non-toxic, No Acute Distress - Head Exam Head Exam: NORMAL INSPECTION, NORMOCEPHALIC - Eye Exam Eye Exam: EOMI, Normal appearance - ENT Exam ENT Exam: Mucous Membranes Moist, Normal Exam - Respiratory Exam Respiratory Exam: Clear to Auscultation Bilateral, NORMAL BREATHING PATTERN. absent: Wheezes - Cardiovascular Exam Cardiovascular Exam: REGULAR RHYTHM, +S1, +S2 - GI/Abdominal Exam GI & Abdominal Exam: Normal Bowel Sounds, Soft. absent: Organomegaly, Tenderness - Rectal Exam Rectal Exam: Deferred - Extremities Exam Extremities exam: Positive for: tenderness. Negative for: normal inspection - Psychiatric Exam Psychiatric exam: Normal Affect, Normal Mood - Skin Skin Exam: Dry, Normal Color Results - Vital Signs Recent Vital Signs: Last Vital Signs Temp 98.2 F 06/25/18 05:54 Pulse 98 H 06/25/18 05:54 Resp 19 06/25/18 05:54 BP 150/77 06/25/18 05:54 Pulse Ox 95 06/25/18 05:54 - Labs Result Diagrams: 06/25/18 07:30 06/25/18 07:30 Labs: Laboratory Results - last 24 hr 06/24/18 06/24/18 06/24/18 07:42 12:08 17:00 WBC RBC Hgb Hct MCV MCH MCHC RDW Plt Count MPV BUN POC Glucose (mg/dL) 89 98 118 H Total Bilirubin Total Protein 06/24/18 06/25/18 06/25/18 21:42 07:30 07:30 WBC 10.2 RBC 3.93 Hgb 9.9 L Hct 31.6 L MCV 80.4 MCH 25.2 MCHC 31.3 RDW 13.9 Plt Count 160 MPV 8.9 BUN 18 POC Glucose (mg/dL) 106 Total Bilirubin 0.4 Total Protein 6.6 06/25/18 08:05 WBC RBC Hgb Hct MCV MCH MCHC RDW Plt Count MPV BUN POC Glucose (mg/dL) 108 Total Bilirubin Total Protein Assessment & Plan - Assessment and Plan (Free Text) Assessment: 72F with significant pmhx and recent medical hx consisting of PE, CAD, PVD requiring Eliquis, effient, aspirin. #Blood in stool #PE on Eliquis #CAD s/p stent on Effient and aspirin #T2DM #HTN #CKD #CHF PLAN: -Previous notes appreciated. -Continue current management and medication as medically indicated. -Last colonoscopy ~ 10 years ago -She will need repeat colonoscopy and EGD as an outpatient. We have given our information, and she knows to call our office. -Otherwise Hb has been stable. Continue to monitor. -We will signoff at this time. Please reconsult as needed. Thank you. - Date & Time Date: 06/25/18 Time: 08:37 <Aldair Crawford Y - Last Filed: 06/25/18 08:57> Meds - Medications Medications: Current Medications Amlodipine Besylate (Norvasc) 5 mg PO DAILY [facility] Last Admin: 06/24/18 11:10 Dose: 5 mg Apixaban (Eliquis) 2.5 mg PO BID [facility]; Protocol Aspirin (Ecotrin) 81 mg PO DAILY [facility] Last Admin: 06/24/18 11:09 Dose: 81 mg Atorvastatin Calcium (Lipitor) 40 mg PO DIN [facility] Last Admin: 06/24/18 17:57 Dose: 40 mg Cyanocobalamin (Vitamin B12 1000 Mcg Tab) 1,000 mcg PO DAILY [facility] Last Admin: 06/24/18 11:10 Dose: 1,000 mcg Enoxaparin Sodium (Lovenox) 60 mg SC 0600,1800 [facility]; Protocol Stop: 06/25/18 12:00 Last Admin: 06/25/18 06:27 Dose: 60 mg Ferrous Gluconate (Fergon) 324 mg PO TID [facility] Last Admin: 06/24/18 17:57 Dose: 324 mg Sodium Chloride (Sodium Chloride 0.45%) 1,000 mls @ 60 mls/hr IV .[id number] [facility] Stop: 06/27/18 12:00 Last Admin: 06/25/18 06:27 Dose: 60 mls/hr Insulin Human Regular (Humulin R Med) 0 units SC [facility]; Protocol Last Admin: 06/25/18 08:20 Dose: Not Given Isosorbide Mononitrate (Imdur) 60 mg PO DAILY [facility] Last Admin: 06/24/18 11:09 Dose: 60 mg Losartan Potassium (Cozaar) 100 mg PO DAILY [facility] Last Admin: 06/24/18 11:08 Dose: 100 mg Metformin HCl (Glucophage) 1,000 mg PO BID [facility] Last Admin: 06/24/18 17:57 Dose: 1,000 mg Metoprolol Tartrate (Lopressor) 25 mg PO BID [facility] Last Admin: 06/24/18 17:56 Dose: 25 mg Multi-Ingredient Cream (Hydrocerin Cream) 0 ea TOP BID [facility] Last Admin: 06/23/18 18:15 Dose: Not Given Ondansetron HCl (Zofran Inj) 4 mg IVP Q6H PRN PRN Reason: Nausea/Vomiting Prasugrel (Effient) 10 mg PO DAILY [facility] Last Admin: 06/24/18 11:09 Dose: 10 mg Sitagliptin Phosphate (Januvia) 50 mg PO DAILY [facility] Last Admin: 06/24/18 11:09 Dose: 50 mg Vitamin B Complex/Vit C/Folic Acid (Nephro-Maribel) 1 tab PO 0800 [facility] Last Admin: 06/25/18 08:23 Dose: 1 tab Zolpidem Tartrate (Ambien) 10 mg PO HS [facility]; Protocol Last Admin: 06/24/18 22:25 Dose: 10 mg Results - Vital Signs Recent Vital Signs: Last Vital Signs Temp 98.2 F 06/25/18 05:54 Pulse 98 H 06/25/18 05:54 Resp 19 06/25/18 05:54 BP 150/77 06/25/18 05:54 Pulse Ox 95 06/25/18 05:54 - Labs Result Diagrams: 06/25/18 07:30 06/25/18 07:30 Labs: Laboratory Results - last 24 hr 06/24/18 06/24/18 06/24/18 07:42 12:08 17:00 WBC RBC Hgb Hct MCV MCH MCHC RDW Plt Count MPV Sodium Potassium Chloride Carbon Dioxide Anion Gap BUN Creatinine Est GFR ( Amer) Est GFR (Non-Af Amer) POC Glucose (mg/dL) 89 98 118 H Random Glucose Calcium Total Bilirubin AST ALT Alkaline Phosphatase Total Protein Albumin 06/24/18 06/25/18 06/25/18 21:42 07:30 07:30 WBC 10.2 RBC 3.93 Hgb 9.9 L Hct 31.6 L MCV 80.4 MCH 25.2 MCHC 31.3 RDW 13.9 Plt Count 160 MPV 8.9 Sodium 141 Potassium 4.0 Chloride 104 Carbon Dioxide 29 Anion Gap 12 BUN 18 Creatinine 0.9 Est GFR ( Amer) > 60 Est GFR (Non-Af Amer) > 60 POC Glucose (mg/dL) 106 Random Glucose 103 Calcium 8.4 Total Bilirubin 0.4 AST 41 H D ALT 41 Alkaline Phosphatase 96 Total Protein 6.6 Albumin 3.3 06/25/18 08:05 WBC RBC Hgb Hct MCV MCH MCHC RDW Plt Count MPV Sodium Potassium Chloride Carbon Dioxide Anion Gap BUN Creatinine Est GFR ( Amer) Est GFR (Non-Af Amer) POC Glucose (mg/dL) 108 Random Glucose Calcium Total Bilirubin AST ALT Alkaline Phosphatase Total Protein Albumin Attending/Attestation - Attestation I have personally seen and examined this patient.: Yes I have fully participated in the care of the patient.: Yes I have reviewed all pertinent clinical information: Yes Notes (Text): 06/25/18 08:47 I have seen and examined patient with GI fellow. Agree with above documentation with the following additions. In brief, this is a 72 year old female with history of CAD s/p recent PCI with BMS, plavix resistance on effient, PVD, CHF, DM, HTN, PE, lower extremity cellulitis who initially presented to hospital with complaint of dizziness. Hospital course complicated by acute renal insufficiency and cardiac catetherization requiring PCI. GI called for evaluation of anemia with presence of occult blood in stool. She is seen resting comfortably in bed and denies abdominal pain, nausea, vomiting, fever/chills, weight loss, rectal bleeding, or change in bowel habits. She claims to have had a colonoscopy nearly 10 years ago which was normal according to patient. Additional physical examination: Neuro: Awake, alert, oriented x 3, CN 3-12 intact DM / HTN PVD Cellulitis CHF CAD s/p PCI on effient PE on lovenox Anemia - stool occult blood positive - Diet as tolerated - H/H stable, continue to monitor, no overt bleeding noted - Patient scheduled for vascular procedure tomorrow, follow up recommendations - Patient will certainly benefit from outpatient elective endoscopic evaluation given presence of anemia, however will defer procedure for time being given current medical condition requiring use of antiplatelet therapy, otherwise hemodynamic stability and absence of overt bleeding. Office contact information provided to patient, no current planned GI intervention. Will sign off case, please reconsult as necessary, thank you.
--- NOTE | 2018-06-25 11:23 | PN ---
DATE: 06/25/2018 SUBJECTIVE: She this morning because I called in GI because she had positive occult blood and I explained the importance of checking that out. I am also going to check another urine on her because the first urine was a little bit cloudy. She is on IV fluids, Ambien, Cozaar, Ecotrin, Effient, Eliquis, Fergon, metformin, insulin coverage, Imdur, Januvia, Lipitor, Lopressor, Lovenox, Nephro-Maribel, Norvasc, vitamin B12 and Zofran. She is going to go for a procedure with Dr. Lei Kirk tomorrow for circulation of the left leg. PHYSICAL EXAMINATION: VITAL SIGNS: 98.2 temp, 98 pulse, 150/77 blood pressure, 19 respiratory rate, 95% O2 sat on 2 L. HEENT: Head is atraumatic, normocephalic. HEART: Regular rate. LUNGS: Decreased breath sounds, but clear. ABDOMEN: Soft, nontender. Positive bowel sounds. EXTREMITIES: Wrapped. Left leg hurts. I think she has a stent put in. I will see what Dr. Kirk does tomorrow. LABORATORY DATA: She has a 10.2 white count, 9.9 hemoglobin, 31.6 hematocrit with a 160 platelets. She has a 141 sodium, potassium 4, BUN is 18, creatinine 0.9, GFR is greater than 60, sugar is 103, calcium is 8.4, total bili is 0.4, AST is 41, ALT is 41, alk phos 96, total protein 6.6. Urine with large bacteria, we are going to recheck it again. She has a positive occult blood. ASSESSMENT AND PLAN: She is being seen by GI, Infectious Disease, Renal. On outpatient, we will do a colonoscopy. The plan for tomorrow is the circulation and stent placement, I am hoping. She also had a cardiac cath with stent placement. We will see how she improves. Rick Chisholm DO [facility] HOSPITALAshlee
[2018-06-25] MEDS: Hydrocerin(120 gm) TOP SCH ×3 (11:34→18:37)
--- NOTE | 2018-06-25 12:35 | CP.PCM.PN ---
Subjective - Date & Time of Evaluation Date of Evaluation: 06/25/18 Time of Evaluation: 12:35 - Subjective Subjective: Podiatry Progress [facility] - Dr. Mcintosh 72 y/o female seen at bedside for left plantar heel ulceration. Denies any acute overnight events. Admits to continued cramping and pain in the left foot. Awaits arteriogram to be performed tomorrow. Denies any other pedal complaints. Denies F/C/N/V/CP/SOB Objective - Vital Signs/Intake and Output Vital Signs (last 24 hours): Temp Pulse Resp BP Pulse Ox 98.7 F 98 H 18 163/84 H 95 06/25/18 11:51 06/25/18 11:51 06/25/18 11:51 06/25/18 11:51 06/25/18 05:54 Intake and Output: 06/25/18 06/25/18 06:59 18:59 Intake Total Output Total Balance - Medications Medications: Current Medications Amlodipine Besylate (Norvasc) 5 mg PO DAILY [facility] Last Admin: 06/25/18 11:31 Dose: 5 mg Apixaban (Eliquis) 2.5 mg PO BID [facility]; Protocol Aspirin (Ecotrin) 81 mg PO DAILY [facility] Last Admin: 06/25/18 11:31 Dose: 81 mg Atorvastatin Calcium (Lipitor) 40 mg PO DIN [facility] Last Admin: 06/24/18 17:57 Dose: 40 mg Cyanocobalamin (Vitamin B12 1000 Mcg Tab) 1,000 mcg PO DAILY [facility] Last Admin: 06/25/18 11:31 Dose: 1,000 mcg Ferrous Gluconate (Fergon) 324 mg PO TID [facility] Last Admin: 06/25/18 11:31 Dose: 324 mg Sodium Chloride (Sodium Chloride 0.45%) 1,000 mls @ 60 mls/hr IV .[id number] [facility] Stop: 06/27/18 12:00 Last Admin: 06/25/18 06:27 Dose: 60 mls/hr Insulin Human Regular (Humulin R Med) 0 units SC ACHS [facility]; Protocol Last Admin: 06/25/18 08:20 Dose: Not Given Isosorbide Mononitrate (Imdur) 60 mg PO DAILY [facility] Last Admin: 06/25/18 11:31 Dose: 60 mg Losartan Potassium (Cozaar) 100 mg PO DAILY [facility] Last Admin: 06/25/18 11:32 Dose: 100 mg Metformin HCl (Glucophage) 1,000 mg PO BID [facility] Last Admin: 06/25/18 11:32 Dose: Not Given Metoprolol Tartrate (Lopressor) 25 mg PO BID [facility] Last Admin: 06/25/18 11:32 Dose: 25 mg Multi-Ingredient Cream (Hydrocerin Cream) 0 ea TOP BID [facility] Last Admin: 06/25/18 11:37 Dose: Not Given Ondansetron HCl (Zofran Inj) 4 mg IVP Q6H PRN PRN Reason: Nausea/Vomiting Prasugrel (Effient) 10 mg PO DAILY [facility] Last Admin: 06/25/18 11:30 Dose: 10 mg Sitagliptin Phosphate (Januvia) 50 mg PO DAILY [facility] Last Admin: 06/25/18 11:33 Dose: Not Given Vitamin B Complex/Vit C/Folic Acid (Nephro-Maribel) 1 tab PO 0800 [facility] Last Admin: 06/25/18 08:23 Dose: 1 tab Zolpidem Tartrate (Ambien) 10 mg PO HS [facility]; Protocol Last Admin: 06/24/18 22:25 Dose: 10 mg - Labs Labs: 06/25/18 07:30 06/25/18 07:30 PT 14.2 SECONDS (9.4-12.5) H 06/16/18 05:25 INR 1.23 06/16/18 05:25 APTT 32.9 Seconds (25.1-36.5) 06/16/18 05:25 - Constitutional Appears: Well, Non-toxic, No Acute Distress - Extremities Exam Additional comments: Bilateral lower extremity exam: Vascular: DP/PT nonpalpable B/L. Temperature gradient warm to cool on R, warm to cold on L. CFT < 5 secs to all digits, no edema noted. Pinpoint erythematous lesions possibly indicative of ischemic changes noted on the dorsal aspect of the left foot Derm: no IDM, no open lesions, xerosis and peeling of skin noted B/L, L>R. Deep tissue injury to the heel on the left. Erythema and ecchymosis noted to the second and third digits. No clinical signs of infection Ortho: moderate pain on palpation to the left foot Neuro: protective sensation grossly intact - Neurological Exam Neurological Exam: Alert, Awake, Oriented x3 - Psychiatric Exam Psychiatric exam: Normal Affect, Normal Mood Assessment and Plan - Assessment and Plan (Free Text) Assessment: 72 y/o female seen at bedside for possible dermatitis of the left foot with vascular insufficiency Plan: Patient seen and evaluated at bedside Discussed plan with Dr. Mcintosh Wound site cleaned with saline and dressed with xeroform, DSD ELISABET/PVR studies show left iliac and bilateral SFA occlusive disease Vascular surgery on board, appreciate recommendations Pt to go for lower extremity arteriogram tomorrow Eucerin cream to be applied B/L BID by nursing staff Multipodus boots ordered to be worn at all times Will continue to follow patient
--- NOTE | 2018-06-25 14:27 | PN ---
DATE: 06/25/2018 SUBJECTIVE: The patient is in bed, in no acute distress, nontoxic. PHYSICAL EXAMINATION: VITAL SIGNS: On exam, temperature is 98, blood pressure is 160/80, respiratory rate of 18. HEENT: Examination of HEENT is unremarkable. NECK: Supple. LUNGS: Have decreased breath sounds. HEART: Normal S1, S2. ABDOMEN: Soft, nontender. LABORATORY DATA: Laboratory examination reveals a white count of 10,000, hemoglobin of 9, platelets of 160 and the chemistries reveals the BUN of 18, creatinine of 0.9 and urinalysis is noted and microbiology is reviewed. Review of orders reveals the patient have no antibiotics. The patient also had a stool for C. Diff which is reported to be negative antigen and toxin. ASSESSMENT AND PLAN: A 72-year-old female with deep venous thrombosis and systolic congestive heart failure, hypertension, anxiety, kidney disease, admitted with acute systolic congestive heart failure on top of chronic congestive heart failure and left foot cellulitis and completely resolved, cardiac catheterization, angioplasty with placement of bare-metal stent. The patient has completed 7 days of antibiotics. Bone scan was negative. Cellulitis has resolved, currently off of antibiotics, afebrile. Dr. Crawford, the b2b sales executive's consultation is appreciated. The patient is scheduled for vascular intervention tomorrow and we will follow with you. The patient is at risk for developing nosocomial infections. Dakota Stewart MD
[2018-06-26 07:06] LABS: ALB/GLOB RATIO 0.9 (1.1-1.8); ALBUMIN 3.1 g/dL (3.0-4.8); ALT/SGPT 43 U/L (7-56); AST/SGOT 39 U/L (14-36); BLOOD UREA NITROGEN 15 mg/dL (7-21); CALCIUM 8.4 mg/dL (8.4-10.5); GFR NON-AFRICAN AMERICAN > 60
[2018-06-26 07:13] LABS: HEMOGLOBIN 9.7 g/dL (12.0-16.0); MEAN CELL VOLUME 79.8 fl (80.0-105.0); MEAN CORPUSCULAR HEMOGLOBIN 25.4 pg (25.0-35.0); MEAN CORPUSCULAR HGB CONC 31.8 g/dl (31.0-37.0); RBC 3.82 10^6/uL (3.5-6.1); RED CELL DISTRIBUTION WIDTH 13.6 % (11.5-14.5); WHITE BLOOD COUNT 9.3 10^3/uL (4.5-11.0)
[2018-06-26] MEDS: Insulin Reg-MEDIUM-Coverage SC SCH ×4 (07:57→22:26)
--- NOTE | 2018-06-26 08:51 | PN ---
DATE: 06/26/2018 SUBJECTIVE: She is resting comfortably in bed, little nervous this morning. She is in a go for a procedure with Dr. Lei Kirk for her peripheral artery disease. She is on Ambien, Cozaar, Ecotrin, Effient, Fergon, insulin, Hydrocerin cream, Imdur, Januvia, Lipitor, Lopressor, Nephro-Maribel, Norvasc, IV fluids, vitamin B12 and Zofran. PHYSICAL EXAMINATION: VITAL SIGNS: She has a 98.7 temperature, 94 pulse, 155/81 blood pressure, 19 respiratory rate, 100% O2 sat on nasal cannula. HEENT: Head: Atraumatic, normocephalic. HEART: Regular rate. Lungs: Decreased breath sounds but clear. ABDOMEN: Soft. EXTREMITIES: Painful. Hopefully this will help. LABORATORY DATA: She has a 9.3 white count, 9.7 hemoglobin, 30.5 hematocrit with a 149 platelets. 140 sodium, potassium 4.1, BUN 15, creatinine 0.8, GFR is greater than 60, sugar is 98, calcium is 8.4, total bili is 0.4. AST is 39, ALT is 43, alk phos 88, total protein 6.4. ASSESSMENT AND PLAN: She has been seen by Infectious Disease. She completed her 7 days of IV antibiotics, so my plan would be to start working on discharge planning after this procedure today. There is a recommendation for TCU from physical therapy. We will see if we get her in to TCU after the procedure by Dr. Lei Kirk today. She had a little more physical therapy and treatment of the legs. Continue as per treatment and procedure. Rick Chisholm DO
[2018-06-26] MEDS: Hydrocerin(120 gm) TOP SCH (09:08)
[2018-06-26] MEDS: Multivitamin Vitamin B Complex (Nephro-Vite) Tab PO SCH (09:08)
--- NOTE | 2018-06-26 10:58 | PN ---
DATE: 06/26/2018 SUBJECTIVE: The patient is comfortable without discomfort. PHYSICAL EXAMINATION: VITAL SIGNS: Blood pressure 149/73, heart rate is approximately 100. NECK: Negative JVD. LUNGS: Without rales. HEART: S1, S2. EXTREMITIES: Without change. LABORATORY DATA: Creatinine 0.8, hemoglobin is 9.7. IMPRESSION: 1. Stable post percutaneous transluminal coronary angioplasty and stent of multi-vessels. 2. History of [id number] myocardial infarction. 3. Coronary artery disease. 4. Peripheral vascular disease. 5. Diabetes mellitus. 6. Marked improvement of her renal function with aggressive IV hydration. The patient is for lower extremity intervention today. Lei Rivera MD
[2018-06-26] MEDS: Sodium Chloride 0.45% 1,000 ML IV SCH ×2 (13:05→15:20)
[2018-06-26] MEDS ORDERED: Lidocaine 2% Inj (20ml) ONE (13:42)
[2018-06-26] MEDS ORDERED: Iodixanol 320 MG/ML 100 ML BOTTLE IV ONE (13:42)
[2018-06-26] MEDS ORDERED: Iodixanol 320 MG/ML 200 ML BOTTLE IV ONE (13:42)
[2018-06-26] MEDS ORDERED: Heparin 2,000 ML IV ONE (13:42)
[2018-06-26] MEDS ORDERED: Midazolam 2 MG/2 ML VIAL ONE ×3 (14:16→15:20)
[2018-06-26] MEDS ORDERED: Verapamil 2 ML ONE (15:03)
--- NOTE | 2018-06-26 17:01 | CP.PCM.PN ---
Subjective - Date & Time of Evaluation Date of Evaluation: 06/26/18 Time of Evaluation: 09:00 - Subjective Subjective: Comfortable in bed, no fevers, not in distress, no increased pain in the left foot. For vascular procedure today. Objective - Vital Signs/Intake and Output Vital Signs (last 24 hours): Temp Pulse Resp BP Pulse Ox 98.3 F 96 H 18 139/83 100 06/26/18 16:45 06/26/18 16:45 06/26/18 16:45 06/26/18 16:45 06/26/18 06:00 Intake and Output: 06/26/18 06/26/18 06:59 18:59 Intake Total 3000 Output Total 0 Balance 3000 - Medications Medications: Current Medications Amlodipine Besylate (Norvasc) 5 mg PO DAILY [facility] Last Admin: 06/26/18 09:08 Dose: 5 mg Apixaban (Eliquis) 2.5 mg PO BID [facility]; Protocol Aspirin (Ecotrin) 81 mg PO DAILY [facility] Last Admin: 06/26/18 09:08 Dose: 81 mg Atorvastatin Calcium (Lipitor) 40 mg PO DIN [facility] Last Admin: 06/25/18 18:46 Dose: 40 mg Cyanocobalamin (Vitamin B12 1000 Mcg Tab) 1,000 mcg PO DAILY [facility] Last Admin: 06/26/18 09:09 Dose: 1,000 mcg Ferrous Gluconate (Fergon) 324 mg PO TID [facility] Last Admin: 06/26/18 14:00 Dose: Not Given Sodium Chloride (Sodium Chloride 0.45%) 1,000 mls @ 60 mls/hr IV .[id number] [facility] Stop: 06/27/18 12:00 Last Admin: 06/26/18 13:05 Dose: 60 mls/hr Insulin Human Regular (Humulin R Med) 0 units SC ACHS [facility]; Protocol Last Admin: 06/26/18 13:04 Dose: Not Given Isosorbide Mononitrate (Imdur) 60 mg PO DAILY [facility] Last Admin: 06/26/18 09:09 Dose: 60 mg Losartan Potassium (Cozaar) 100 mg PO DAILY [facility] Last Admin: 06/26/18 09:08 Dose: 100 mg Metformin HCl (Glucophage) 1,000 mg PO BID [facility] Last Admin: 06/25/18 11:32 Dose: Not Given Metoprolol Tartrate (Lopressor) 25 mg PO BID [facility] Last Admin: 06/26/18 09:08 Dose: 25 mg Multi-Ingredient Cream (Hydrocerin Cream) 0 ea TOP BID [facility] Last Admin: 06/26/18 09:08 Dose: Not Given Ondansetron HCl (Zofran Inj) 4 mg IVP Q6H PRN PRN Reason: Nausea/Vomiting Prasugrel (Effient) 10 mg PO DAILY [facility] Last Admin: 06/26/18 09:08 Dose: 10 mg Sitagliptin Phosphate (Januvia) 50 mg PO DAILY [facility] Last Admin: 06/26/18 09:07 Dose: Not Given Vitamin B Complex/Vit C/Folic Acid (Nephro-Maribel) 1 tab PO 0800 [facility] Last Admin: 06/26/18 09:08 Dose: 1 tab Zolpidem Tartrate (Ambien) 10 mg PO HS [facility]; Protocol Last Admin: 06/25/18 22:05 Dose: 10 mg - Labs Labs: 06/26/18 06:30 06/26/18 06:30 PT 14.2 SECONDS (9.4-12.5) H 06/16/18 05:25 INR 1.23 06/16/18 05:25 APTT 32.9 Seconds (25.1-36.5) 06/16/18 05:25 - Constitutional Appears: Chronically Ill - Head Exam Head Exam: NORMAL INSPECTION - Neck Exam Neck Exam: absent: Meningismus - Respiratory Exam Respiratory Exam: Decreased Breath Sounds - Cardiovascular Exam Cardiovascular Exam: +S1, +S2 - GI/Abdominal Exam GI & Abdominal Exam: Soft. absent: Tenderness - Extremities Exam Additional comments: left foot with dressings in place Assessment and Plan - Assessment and Plan (Free Text) Plan: Assessment S/P treatment with antibiotics of left foot cellulitis DVT chronic CHF CAD S/P PCI Plan continue to monitor off antibiotics since she is at risk for nosocomial infections for vascular procedure today
--- NOTE | 2018-06-26 19:37 | VASCULAR ---
PROCEDURE: 1. Abdominal aortogram and bilateral lower extremity runoff. HISTORY: Severe peripheral vascular disease. Left foot rest pain with early gangrene. PHYSICIAN(S): Lei Kirk M.D. TECHNIQUE: The relative risks and indications of the procedure were explained to the patient and her son and consent obtained. The patient was hydrated prior to the procedure and the appropriate labs drawn. The patient was placed supine on the arteriogram table and the right groin prepped and draped in the usual sterile fashion. Conscious sedation and monitoring were provided throughout the procedure by a nurse. Via a right common femoral artery approach, a 5 Finnish sheath was placed in the right groin. Through the sheath and over a guidewire, a 5 Finnish flush catheter was placed in the abdominal aorta at the level of the aortic bifurcation and an RPO DSA abdominal pelvic arteriogram performed. The catheter was advanced over the bifurcation and placed in the left common femoral artery. An overlapping DSA left lower extremity arteriogram was performed. Imaging of the foot was obtained. A 7 Finnish 45 cm destination sheath was placed in the proximal left SFA. Heparin 6500 units IV and nitroglycerin in 250 mcg aliquots were given. The 8 cm occlusion of the left popliteal artery was crossed easily with a 5 Finnish catheter and angled Glidewire. The stenoses in the left posterior tibial artery were crossed with various 0.035 and 0.014 guidewires. Exchange is made for a 0.017 Viper support wire in the terminal left posterior tibial artery. CS I atherectomy of the left posterior tibial artery origin, mid left posterior tibial artery and terminal left posterior tibial artery was performed with a 1.25 mm solid constanza. The proximal and mid left posterior tibial artery were dilated with a 3.5 x 4 cm balloon. The distal left posterior tibial artery was dilated with a 3.0 x 4 cm balloon. A good angiographic result was obtained and no stent was required. A small added filter wire was deployed in the left popliteal artery below the knee. Jet stream atherectomy of the 8 cm calcified left popliteal artery occlusion was performed with a 2.4/3.4 mm catheter. Three passes were performed. The left popliteal artery was then dilated with a 6 mm x 150 mm drug-eluting balloon. A good angiographic result was obtained. No stent was required. A full filter was encountered completion of the procedure. A 5 Finnish 90 cm sheath was used to aspirate the filter. The filter was removed. Completion angiograms were performed. The sheath was removed hemostasis obtained with a Perclose device. FINDINGS: The distal abdominal aorta is calcified and patent. Aortic bifurcation is patent. The common external iliac arteries are widely patent on two views. The internal iliac arteries are patent bilaterally. The left common femoral artery is patent. Left profunda femoral artery is patent. Left SFA is smoothly calcified. There is occlusion of the terminal left SFA. There is an 8 cm occlusion of the left popliteal artery above the knee. The left popliteal artery below the knee is patent and smoothly disease. There is severe left trifurcation and tibial runoff. The left anterior tibial and peroneal arteries are occluded proximally. The left posterior tibial artery is a predominant supply to the foot with a calcified stenosis at its origin. In addition there are focal severe stenosis in the mid left posterior tibial artery in the terminal left posterior tibial artery. There is severe left pedal occlusive disease. The left dorsalis pedis artery is occluded. The plantar arch is partially opacified. The posterior tibial artery is a predominant supply to the forefoot. IMPRESSION: 1.Successful left popliteal artery recanalization with jet stream atherectomy and drug-eluting balloon angioplasty 2. Successful multi focal left posterior tibial artery CS I atherectomy and angioplasty 3. Severe left trifurcation, tibial, and pedal occlusive disease
[2018-06-27 00:52] VITALS: O2SAT 100
[2018-06-27 02:01] LABS: URINE BILIRUBIN NEGATIVE (NEGATIVE); URINE BLOOD SMALL (NEGATIVE); URINE GLUCOSE (UA) NEGATIVE (NEGATIVE); URINE LEUKOCYTE ESTERASE TRACE Leu/uL (NEGATIVE); URINE PROTEIN 100 mg/dL (<30 mg/dL); URINE UROBILINOGEN 0.2 E.U./dL (<1 E.U./dL)
[2018-06-27 02:05] LABS: URINE APPEARANCE CLEAR (CLEAR); URINE COLOR YELLOW (YELLOW)
[2018-06-27 02:28] LABS: URINE BACTERIA FEW (NEG)
[2018-06-27 06:34] VITALS: RESP 18
[2018-06-27 07:01] LABS: BLOOD UREA NITROGEN 13 mg/dL (7-21); GFR NON-AFRICAN AMERICAN > 60
[2018-06-27 07:45] LABS: HEMOGLOBIN 8.5 g/dL (12.0-16.0); MEAN CELL VOLUME 78.9 fl (80.0-105.0); MEAN CORPUSCULAR HGB CONC 32.9 g/dl (31.0-37.0); MEAN PLATELET VOLUME 9.5 fl (7.0-11.0); RBC 3.27 10^6/uL (3.5-6.1); RED CELL DISTRIBUTION WIDTH 13.8 % (11.5-14.5); WHITE BLOOD COUNT 11.6 10^3/uL (4.5-11.0)
[2018-06-27] MEDS: Insulin Reg-MEDIUM-Coverage SC SCH ×2 (07:55→14:18)
[2018-06-27] MEDS ORDERED: Pantoprazole 40 mg EC Tab PO STA (08:46)
[2018-06-27] MEDS: Multivitamin Vitamin B Complex (Nephro-Vite) Tab PO SCH (09:31)
[2018-06-27] MEDS: Sodium Chloride 0.45% 1,000 ML IV SCH (09:32)
[2018-06-27] MEDS: Hydrocerin(120 gm) TOP SCH (09:36)
--- NOTE | 2018-06-27 10:06 | CP.PCM.PN ---
<Evelyn Randall - Last Filed: 06/27/18 09:58> Subjective - Date & Time of Evaluation Date of Evaluation: 06/27/18 Time of Evaluation: 09:58 - Subjective Subjective: Gastroenterology Fellow/PGY6 Progress Note Patient feels well. Denies abdominal pain. Tolerating diet. Nursing denies melena or hematochezia. A 12-point review of systems negative except for as above. Objective - Vital Signs/Intake and Output Vital Signs (last 24 hours): Temp Pulse Resp BP Pulse Ox 98.5 F 106 H 18 118/79 100 06/27/18 06:00 06/27/18 09:31 06/27/18 06:00 06/27/18 09:31 06/27/18 06:00 Intake and Output: 06/27/18 06/27/18 06:59 18:59 Intake Total 1080 Output Total 800 Balance 280 - Medications Medications: Current Medications Amlodipine Besylate (Norvasc) 5 mg PO DAILY [facility] Last Admin: 06/27/18 09:31 Dose: 5 mg Apixaban (Eliquis) 2.5 mg PO BID [facility]; Protocol Aspirin (Ecotrin) 81 mg PO DAILY [facility] Last Admin: 06/27/18 09:31 Dose: 81 mg Atorvastatin Calcium (Lipitor) 40 mg PO DIN [facility] Last Admin: 06/26/18 22:21 Dose: 40 mg Cyanocobalamin (Vitamin B12 1000 Mcg Tab) 1,000 mcg PO DAILY [facility] Last Admin: 06/27/18 09:31 Dose: 1,000 mcg Ferrous Gluconate (Fergon) 324 mg PO TID [facility] Last Admin: 06/27/18 09:31 Dose: 324 mg Sodium Chloride (Sodium Chloride 0.45%) 1,000 mls @ 60 mls/hr IV .[id number] [facility] Stop: 06/27/18 12:00 Last Admin: 06/27/18 09:32 Dose: 60 mls/hr Insulin Human Regular (Humulin R Med) 0 units SC ACHS [facility]; Protocol Last Admin: 06/27/18 07:55 Dose: Not Given Isosorbide Mononitrate (Imdur) 60 mg PO DAILY [facility] Last Admin: 06/27/18 09:31 Dose: 60 mg Losartan Potassium (Cozaar) 100 mg PO DAILY [facility] Last Admin: 06/27/18 09:31 Dose: 100 mg Metformin HCl (Glucophage) 1,000 mg PO BID [facility] Last Admin: 06/25/18 11:32 Dose: Not Given Metoprolol Tartrate (Lopressor) 25 mg PO BID [facility] Last Admin: 06/27/18 09:31 Dose: 25 mg Multi-Ingredient Cream (Hydrocerin Cream) 0 ea TOP BID [facility] Last Admin: 06/27/18 09:36 Dose: 1 applic Ondansetron HCl (Zofran Inj) 4 mg IVP Q6H PRN PRN Reason: Nausea/Vomiting Pantoprazole Sodium (Protonix Ec Tab) 40 mg PO 0600 [facility] Prasugrel (Effient) 10 mg PO DAILY [facility] Last Admin: 06/27/18 09:35 Dose: 10 mg Sitagliptin Phosphate (Januvia) 50 mg PO DAILY [facility] Last Admin: 06/27/18 09:31 Dose: 50 mg Vitamin B Complex/Vit C/Folic Acid (Nephro-Maribel) 1 tab PO 0800 [facility] Last Admin: 06/27/18 09:31 Dose: 1 tab Zolpidem Tartrate (Ambien) 10 mg PO HS [facility]; Protocol Last Admin: 06/26/18 22:21 Dose: 10 mg - Labs Labs: 06/27/18 06:15 06/27/18 06:15 PT 14.2 SECONDS (9.4-12.5) H 06/16/18 05:25 INR 1.23 06/16/18 05:25 APTT 32.9 Seconds (25.1-36.5) 06/16/18 05:25 - Constitutional Appears: Non-toxic, No Acute Distress - Head Exam Head Exam: ATRAUMATIC, NORMOCEPHALIC - Eye Exam Eye Exam: EOMI, PERRL. absent: Scleral icterus Pupil Exam: PERRL. absent: Miosis, Mydriatic - ENT Exam ENT Exam: Mucous Membranes Moist, Normal Oropharynx - Neck Exam Neck Exam: Full ROM, Normal Inspection - Respiratory Exam Respiratory Exam: Clear to Ausculation Bilateral. absent: Rales, Rhonchi, Wheezes - Cardiovascular Exam Cardiovascular Exam: RRR, +S1, +S2. absent: Gallop, Rubs - GI/Abdominal Exam GI & Abdominal Exam: Soft, Normal Bowel Sounds. absent: Distended, Firm, Guarding, Rigid, Tenderness, Organomegaly, Rebound - Extremities Exam Extremities Exam: Normal Inspection. absent: Pedal Edema - Neurological Exam Neurological Exam: Alert, Awake - Psychiatric Exam Psychiatric exam: Normal Affect, Normal Mood - Skin Skin Exam: Dry, Intact, Normal Color, Warm Assessment and Plan - Assessment and Plan (Free Text) Assessment: 72 year old female with PMH PE, CAD s/p PCI, PVD (on ASA,Eliquis, and Effient), CHF, DM, HTN, and lower extremity cellulitis presenting with dizziness. GI consultation for anemia with FOBT positive. Active treatment of dizziness, POD 1 (06/26) lower extremity arterial revascularization and angioplasty of left popliteal and posterior tibial arteries. Prior colonoscopy endorsed ten years ago to be normal. Plan: -patient refused rectal exam -nursing denies hematochezia/melena -continue to monitor H/H -will benefit from outpatient EGD/colonoscopy, office contact information provided -no indication for inpatient endoscopic valuation -Thank you for opportunity to participate in the care of this patient. Please contact with questions/concerns. Signing off. <Aldair Crawford - Last Filed: 06/27/18 10:28> Objective - Vital Signs/Intake and Output Vital Signs (last 24 hours): Temp Pulse Resp BP Pulse Ox 98.5 F 106 H 18 118/79 100 06/27/18 06:00 06/27/18 09:31 06/27/18 06:00 06/27/18 09:31 06/27/18 06:00 Intake and Output: 06/27/18 06/27/18 06:59 18:59 Intake Total 1080 Output Total 800 Balance 280 - Medications Medications: Current Medications Amlodipine Besylate (Norvasc) 5 mg PO DAILY [facility] Last Admin: 06/27/18 09:31 Dose: 5 mg Apixaban (Eliquis) 2.5 mg PO BID [facility]; Protocol Aspirin (Ecotrin) 81 mg PO DAILY [facility] Last Admin: 06/27/18 09:31 Dose: 81 mg Atorvastatin Calcium (Lipitor) 40 mg PO DIN [facility] Last Admin: 06/26/18 22:21 Dose: 40 mg Cyanocobalamin (Vitamin B12 1000 Mcg Tab) 1,000 mcg PO DAILY [facility] Last Admin: 06/27/18 09:31 Dose: 1,000 mcg Ferrous Gluconate (Fergon) 324 mg PO TID [facility] Last Admin: 06/27/18 09:31 Dose: 324 mg Sodium Chloride (Sodium Chloride 0.45%) 1,000 mls @ 60 mls/hr IV .[id number] [facility] Stop: 06/27/18 12:00 Last Admin: 06/27/18 09:32 Dose: 60 mls/hr Insulin Human Regular (Humulin R Med) 0 units SC ACHS [facility]; Protocol Last Admin: 06/27/18 07:55 Dose: Not Given Isosorbide Mononitrate (Imdur) 60 mg PO DAILY [facility] Last Admin: 06/27/18 09:31 Dose: 60 mg Losartan Potassium (Cozaar) 100 mg PO DAILY [facility] Last Admin: 06/27/18 09:31 Dose: 100 mg Metformin HCl (Glucophage) 1,000 mg PO BID [facility] Last Admin: 06/25/18 11:32 Dose: Not Given Metoprolol Tartrate (Lopressor) 25 mg PO BID [facility] Last Admin: 06/27/18 09:31 Dose: 25 mg Multi-Ingredient Cream (Hydrocerin Cream) 0 ea TOP BID [facility] Last Admin: 06/27/18 09:36 Dose: 1 applic Ondansetron HCl (Zofran Inj) 4 mg IVP Q6H PRN PRN Reason: Nausea/Vomiting Pantoprazole Sodium (Protonix Ec Tab) 40 mg PO 0600 [facility] Prasugrel (Effient) 10 mg PO DAILY [facility] Last Admin: 06/27/18 09:35 Dose: 10 mg Sitagliptin Phosphate (Januvia) 50 mg PO DAILY [facility] Last Admin: 06/27/18 09:31 Dose: 50 mg Vitamin B Complex/Vit C/Folic Acid (Nephro-Maribel) 1 tab PO 0800 [facility] Last Admin: 06/27/18 09:31 Dose: 1 tab Zolpidem Tartrate (Ambien) 10 mg PO HS [facility]; Protocol Last Admin: 06/26/18 22:21 Dose: 10 mg - Labs Labs: 06/27/18 06:15 06/27/18 06:15 PT 14.2 SECONDS (9.4-12.5) H 06/16/18 05:25 INR 1.23 06/16/18 05:25 APTT 32.9 Seconds (25.1-36.5) 06/16/18 05:25 Attending/Attestation - Attestation I have fully participated in the care of the patient.: Yes I have reviewed all pertinent clinical information, including history, physical exam and plan: Yes Notes (Text): 06/27/18 10:19 PE CAD s/p recent PCI on effient CHF DM PVD Anemia, stool occult blood positive - Diet as tolerated - H/H stable, without signs of overt bleeding noted. Continue to monitor and transfuse as necessary. - Patient currently high risk for any potential endoscopic evaluation given recent PCI with requirement for anti-platelet therapy and recent PE - Would benefit from outpatient elective endoscopic evaluation following resolution of acute medical issues. No planned GI intervention at this time, will sign off case. Please reconsult as necessary, thank you. Discussed with Dr. Chisholm.
--- NOTE | 2018-06-27 12:22 | DS ---
HISTORY OF PRESENT ILLNESS: She had her stents placed in by interventional radiologist yesterday and now she is doing much better, the foot is lot better. She was also stented cardiologically twice by Dr. Rivera and she is doing well with that too and I think the plan is to send her to TCU if authorization can be done by the insurance company and by case management. She had PAD, CAD, she also has positive occult blood, she is weak and UTI. MEDICATIONS: She is on Ambien, Cozaar, Ecotrin, Effient, Eliquis is on hold, Fergon, Glucophage is on hold, insulin, Hydrocerin cream, Imdur, Januvia, Lipitor, Lopressor, Nephro-Maribel, Norvasc, IV fluids, vitamin B12 and Zofran. PHYSICAL EXAMINATION: VITAL SIGNS: She has 98.5 temperature, 93 pulse, 162/88 blood pressure, 18 respiratory rate, 100% O2 sat on 2 liters. HEENT: Head is atraumatic, normocephalic. Throat is moist. NECK: Supple, in good spirits. She wants to go to TCU. HEART: Regular rate. LUNGS: Decreased breath sounds but clear. ABDOMEN: Soft. EXTREMITIES: Improved, less stained, better color. LABORATORY DATA: She has 11.6 white count, 8.5 hemoglobin, 25.8 hematocrit, 141 platelets. We will keep an eye on the white count. INR is 1.23. She has 138 sodium, potassium is 3.8, BUN is 13, creatinine is 0.7, GFR is greater than 60, sugar is 92, calcium is 8, was few. She had positive occult blood. She had multiple consults while she was here. We have Infectious Disease, Cardiology, Podiatry, Interventional Radiology and also GI was consulted. I do not know why they are not on the consult list, because it was there the other day and now it is not there, I am not sure why. Plan is to go to the TCU, hopefully she will improve there, will be watched, be able to walk better before she goes home. She has peripheral vascular disease with stent placement, PAD, CAD with cardiac stents, UTI, IV antibiotics. Rick Chisholm DO [facility] # [id number]
--- NOTE | 2018-06-27 12:29 | CP.PCM.PN ---
Subjective - Date & Time of Evaluation Date of Evaluation: 06/27/18 Time of Evaluation: 12:28 - Subjective Subjective: RENAL FOLLOW UP subj: seen and examined s/p coronary artery stent and PVD interventions she feels usual health. denies CP/SOB/nausea/vomiting. o/e: vss gen: nad sclera: anicteric op: clear neck: supple no thyromegaly lungs: cta b/l abd: soft nt nd no organomegaly ext: no edema neuro: a+ox3 no focal deficit psych: nml affect skin no rash A/P: ARF/ Anemia/ CAD/ Hypertension/ CHF/PVD/non obs calculus plan: BARTOLO is resolved cr back to baseline. pt overall stable from renal perspective due to recent FDA concerns, changed diovan to losartan 100 mg/day. resume beta blockers cad and CHF management as per cardiology added iron, MVI and B12 supplements. PRBC as needed will sign off and follow further prn basis had d/w son and team Objective - Vital Signs/Intake and Output Vital Signs (last 24 hours): Temp Pulse Resp BP Pulse Ox 98.5 F 109 H 18 118/79 100 06/27/18 06:00 06/27/18 10:00 06/27/18 06:00 06/27/18 09:31 06/27/18 06:00 Intake and Output: 06/27/18 06/27/18 06:59 18:59 Intake Total 1080 Output Total 800 180 Balance 280 -180 - Medications Medications: Current Medications Amlodipine Besylate (Norvasc) 5 mg PO DAILY [facility] Last Admin: 06/27/18 09:31 Dose: 5 mg Apixaban (Eliquis) 2.5 mg PO BID [facility]; Protocol Aspirin (Ecotrin) 81 mg PO DAILY [facility] Last Admin: 06/27/18 09:31 Dose: 81 mg Atorvastatin Calcium (Lipitor) 40 mg PO DIN [facility] Last Admin: 06/26/18 22:21 Dose: 40 mg Cyanocobalamin (Vitamin B12 1000 Mcg Tab) 1,000 mcg PO DAILY [facility] Last Admin: 06/27/18 09:31 Dose: 1,000 mcg Ferrous Gluconate (Fergon) 324 mg PO TID [facility] Last Admin: 06/27/18 09:31 Dose: 324 mg Insulin Human Regular (Humulin R Med) 0 units SC [facility]; Protocol Last Admin: 06/27/18 07:55 Dose: Not Given Isosorbide Mononitrate (Imdur) 60 mg PO DAILY [facility] Last Admin: 06/27/18 09:31 Dose: 60 mg Losartan Potassium (Cozaar) 100 mg PO DAILY [facility] Last Admin: 06/27/18 09:31 Dose: 100 mg Metformin HCl (Glucophage) 1,000 mg PO BID [facility] Last Admin: 06/25/18 11:32 Dose: Not Given Metoprolol Tartrate (Lopressor) 25 mg PO BID [facility] Last Admin: 06/27/18 09:31 Dose: 25 mg Multi-Ingredient Cream (Hydrocerin Cream) 0 ea TOP BID [facility] Last Admin: 06/27/18 09:36 Dose: 1 applic Ondansetron HCl (Zofran Inj) 4 mg IVP Q6H PRN PRN Reason: Nausea/Vomiting Pantoprazole Sodium (Protonix Ec Tab) 40 mg PO 0600 [facility] Prasugrel (Effient) 10 mg PO DAILY [facility] Last Admin: 06/27/18 09:35 Dose: 10 mg Sitagliptin Phosphate (Januvia) 50 mg PO DAILY [facility] Last Admin: 06/27/18 09:31 Dose: 50 mg Vitamin B Complex/Vit C/Folic Acid (Nephro-Maribel) 1 tab PO 0800 [facility] Last Admin: 06/27/18 09:31 Dose: 1 tab Zolpidem Tartrate (Ambien) 10 mg PO HS [facility]; Protocol Last Admin: 06/26/18 22:21 Dose: 10 mg - Labs Labs: 06/27/18 06:15 06/27/18 06:15 PT 14.2 SECONDS (9.4-12.5) H 06/16/18 05:25 INR 1.23 06/16/18 05:25 APTT 32.9 Seconds (25.1-36.5) 06/16/18 05:25
--- NOTE | 2018-06-27 12:31 | CP.PCM.PN ---
Subjective - Date & Time of Evaluation Date of Evaluation: 06/27/18 Time of Evaluation: 09:45 - Subjective Subjective: Patient had left sided angioplasty yesterday, no fevers, not in distress. Objective - Vital Signs/Intake and Output Vital Signs (last 24 hours): Temp Pulse Resp BP Pulse Ox 98.3 F 96 H 18 139/83 100 06/26/18 16:45 06/26/18 16:45 06/26/18 16:45 06/26/18 16:45 06/26/18 06:00 Intake and Output: 06/26/18 06/26/18 06:59 18:59 Intake Total 3000 Output Total 0 Balance 3000 - Medications Medications: Current Medications Amlodipine Besylate (Norvasc) 5 mg PO DAILY [facility] Last Admin: 06/26/18 09:08 Dose: 5 mg Apixaban (Eliquis) 2.5 mg PO BID [facility]; Protocol Aspirin (Ecotrin) 81 mg PO DAILY [facility] Last Admin: 06/26/18 09:08 Dose: 81 mg Atorvastatin Calcium (Lipitor) 40 mg PO DIN [facility] Last Admin: 06/25/18 18:46 Dose: 40 mg Cyanocobalamin (Vitamin B12 1000 Mcg Tab) 1,000 mcg PO DAILY [facility] Last Admin: 06/26/18 09:09 Dose: 1,000 mcg Ferrous Gluconate (Fergon) 324 mg PO TID [facility] Last Admin: 06/26/18 14:00 Dose: Not Given Sodium Chloride (Sodium Chloride 0.45%) 1,000 mls @ 60 mls/hr IV .[id number] [facility] Stop: 06/27/18 12:00 Last Admin: 06/26/18 13:05 Dose: 60 mls/hr Insulin Human Regular (Humulin R Med) 0 units SC [facility]; Protocol Last Admin: 06/26/18 13:04 Dose: Not Given Isosorbide Mononitrate (Imdur) 60 mg PO DAILY [facility] Last Admin: 06/26/18 09:09 Dose: 60 mg Losartan Potassium (Cozaar) 100 mg PO DAILY [facility] Last Admin: 06/26/18 09:08 Dose: 100 mg Metformin HCl (Glucophage) 1,000 mg PO BID [facility] Last Admin: 06/25/18 11:32 Dose: Not Given Metoprolol Tartrate (Lopressor) 25 mg PO BID [facility] Last Admin: 06/26/18 09:08 Dose: 25 mg Multi-Ingredient Cream (Hydrocerin Cream) 0 ea TOP BID [facility] Last Admin: 06/26/18 09:08 Dose: Not Given Ondansetron HCl (Zofran Inj) 4 mg IVP Q6H PRN PRN Reason: Nausea/Vomiting Prasugrel (Effient) 10 mg PO DAILY [facility] Last Admin: 06/26/18 09:08 Dose: 10 mg Sitagliptin Phosphate (Januvia) 50 mg PO DAILY [facility] Last Admin: 06/26/18 09:07 Dose: Not Given Vitamin B Complex/Vit C/Folic Acid (Nephro-Maribel) 1 tab PO 0800 [facility] Last Admin: 06/26/18 09:08 Dose: 1 tab Zolpidem Tartrate (Ambien) 10 mg PO HS [facility]; Protocol Last Admin: 06/25/18 22:05 Dose: 10 mg - Labs Labs: 06/26/18 06:30 06/26/18 06:30 PT 14.2 SECONDS (9.4-12.5) H 06/16/18 05:25 INR 1.23 06/16/18 05:25 APTT 32.9 Seconds (25.1-36.5) 06/16/18 05:25 - Constitutional Appears: Chronically Ill - Head Exam Head Exam: NORMAL INSPECTION - Respiratory Exam Respiratory Exam: Decreased Breath Sounds - Cardiovascular Exam Cardiovascular Exam: +S1, +S2 - GI/Abdominal Exam GI & Abdominal Exam: Soft. absent: Tenderness - Extremities Exam Additional comments: left leg with dressings in place Assessment and Plan - Assessment and Plan (Free Text) Plan: Assessment S/P treatment with antibiotics of left foot cellulitis S/P left lower extremity angioplasty DVT chronic CHF CAD S/P PCI Plan continue to monitor off antibiotics since she is at risk for infections discussed with Dr. Chisholm
--- NOTE | 2018-06-27 12:55 | CP.PCM.PN ---
<Oli Arenas - Last Filed: 06/27/18 12:56> Subjective - Date & Time of Evaluation Date of Evaluation: 06/27/18 Time of Evaluation: 12:48 - Subjective Subjective: Podiatry progress note for Dr. Bojorquez 72 yo female patient seen and evaluated at bedside resting comfortably. States she had a procedure done yesterday and that she feels fine today and that she has been improving since her procedure. States she has an appetite and is not tired. She denies any pain to her left heel. She denies N/V/F/C/SOB/CP and has no other acute complaints at this time. Objective - Vital Signs/Intake and Output Vital Signs (last 24 hours): Temp Pulse Resp BP Pulse Ox 98.5 F 109 H 18 118/79 100 06/27/18 06:00 06/27/18 10:00 06/27/18 06:00 06/27/18 09:31 06/27/18 06:00 Intake and Output: 06/27/18 06/27/18 06:59 18:59 Intake Total 1080 Output Total 800 180 Balance 280 -180 - Medications Medications: Current Medications Amlodipine Besylate (Norvasc) 5 mg PO DAILY [facility] Last Admin: 06/27/18 09:31 Dose: 5 mg Apixaban (Eliquis) 2.5 mg PO BID [facility]; Protocol Aspirin (Ecotrin) 81 mg PO DAILY [facility] Last Admin: 06/27/18 09:31 Dose: 81 mg Atorvastatin Calcium (Lipitor) 40 mg PO DIN [facility] Last Admin: 06/26/18 22:21 Dose: 40 mg Cyanocobalamin (Vitamin B12 1000 Mcg Tab) 1,000 mcg PO DAILY [facility] Last Admin: 06/27/18 09:31 Dose: 1,000 mcg Ferrous Gluconate (Fergon) 324 mg PO TID [facility] Last Admin: 06/27/18 09:31 Dose: 324 mg Insulin Human Regular (Humulin R Med) 0 units SC [facility]; Protocol Last Admin: 06/27/18 07:55 Dose: Not Given Isosorbide Mononitrate (Imdur) 60 mg PO DAILY [facility] Last Admin: 06/27/18 09:31 Dose: 60 mg Losartan Potassium (Cozaar) 100 mg PO DAILY [facility] Last Admin: 06/27/18 09:31 Dose: 100 mg Metformin HCl (Glucophage) 1,000 mg PO BID [facility] Last Admin: 06/25/18 11:32 Dose: Not Given Metoprolol Tartrate (Lopressor) 25 mg PO BID [facility] Last Admin: 06/27/18 09:31 Dose: 25 mg Multi-Ingredient Cream (Hydrocerin Cream) 0 ea TOP BID [facility] Last Admin: 06/27/18 09:36 Dose: 1 applic Ondansetron HCl (Zofran Inj) 4 mg IVP Q6H PRN PRN Reason: Nausea/Vomiting Pantoprazole Sodium (Protonix Ec Tab) 40 mg PO 0600 [facility] Prasugrel (Effient) 10 mg PO DAILY [facility] Last Admin: 06/27/18 09:35 Dose: 10 mg Sitagliptin Phosphate (Januvia) 50 mg PO DAILY [facility] Last Admin: 06/27/18 09:31 Dose: 50 mg Vitamin B Complex/Vit C/Folic Acid (Nephro-Maribel) 1 tab PO 0800 [facility] Last Admin: 06/27/18 09:31 Dose: 1 tab Zolpidem Tartrate (Ambien) 10 mg PO HS [facility]; Protocol Last Admin: 06/26/18 22:21 Dose: 10 mg - Labs Labs: 06/27/18 06:15 06/27/18 06:15 PT 14.2 SECONDS (9.4-12.5) H 06/16/18 05:25 INR 1.23 06/16/18 05:25 APTT 32.9 Seconds (25.1-36.5) 06/16/18 05:25 - Constitutional Appears: Well, Non-toxic, No Acute Distress - Extremities Exam Additional comments: Bilateral lower extremity exam: Vascular: DP/PT nonpalpable B/L. Temperature gradient warm to cool on R, warm to cold on L. CFT < 5 secs to all digits, no edema noted. Pinpoint erythematous lesions possibly indicative of ischemic changes noted on the dorsal aspect of the left foot Derm: no IDM, no open lesions, xerosis and peeling of skin noted B/L, L>R. Deep tissue injury to the heel on the left. Erythema and ecchymosis noted to the second and third digits. No clinical signs of infection Ortho: moderate pain on palpation to the left foot Neuro: protective sensation grossly intac - Neurological Exam Neurological Exam: Alert, Awake, Oriented x3 - Psychiatric Exam Psychiatric exam: Normal Affect, Normal Mood Assessment and Plan - Assessment and Plan (Free Text) Assessment: 72 y/o female seen at bedside for possible dermatitis of the left foot with vascular insufficiency, unstageable ulcer to left heel Plan: Patient seen and evaluated at bedside Discussed in detail with Dr. Bojorquez Chart and labs reviewed - 11.6 leukocytes likely attributed to procedure; afebrile Wound site cleansed with saline and dressed with xeroform, DSD ELISABET/PVR studies show left iliac and bilateral SFA occlusive disease Vascular surgery on board, appreciate recommendations Arteriogram performed yesterday - successful left popliteal artery recanalization with jet stream arthrectomy and drug-eluting balloon angioplasty; successful multifocal left posterior tibial artery CSI arthectomy and a ngioplasty Eucerin cream to be applied B/L BID by nursing staff Will continue to follow patient <Romulo Bojorquez - Last Filed: 06/27/18 15:30> Objective - Vital Signs/Intake and Output Vital Signs (last 24 hours): Temp Pulse Resp BP Pulse Ox 98 F 90 18 125/63 100 06/27/18 12:00 06/27/18 12:00 06/27/18 06:00 06/27/18 12:00 06/27/18 06:00 Intake and Output: 06/27/18 06/27/18 06:59 18:59 Intake Total 1080 Output Total 800 180 Balance 280 -180 - Medications Medications: Current Medications Amlodipine Besylate (Norvasc) 5 mg PO DAILY [facility] Last Admin: 06/27/18 09:31 Dose: 5 mg Apixaban (Eliquis) 2.5 mg PO BID [facility]; Protocol Aspirin (Ecotrin) 81 mg PO DAILY [facility] Last Admin: 06/27/18 09:31 Dose: 81 mg Atorvastatin Calcium (Lipitor) 40 mg PO DIN [facility] Last Admin: 06/26/18 22:21 Dose: 40 mg Cyanocobalamin (Vitamin B12 1000 Mcg Tab) 1,000 mcg PO DAILY [facility] Last Admin: 06/27/18 09:31 Dose: 1,000 mcg Ferrous Gluconate (Fergon) 324 mg PO TID [facility] Last Admin: 06/27/18 14:18 Dose: 324 mg Insulin Human Regular (Humulin R Med) [address] [facility]; Protocol Last Admin: 06/27/18 14:18 Dose: Not Given Isosorbide Mononitrate (Imdur) 60 mg PO DAILY [facility] Last Admin: 06/27/18 09:31 Dose: 60 mg Losartan Potassium (Cozaar) 100 mg PO DAILY [facility] Last Admin: 06/27/18 09:31 Dose: 100 mg Metformin HCl (Glucophage) 1,000 mg PO BID [facility] Last Admin: 06/25/18 11:32 Dose: Not Given Metoprolol Tartrate (Lopressor) 25 mg PO BID [facility] Last Admin: 06/27/18 09:31 Dose: 25 mg Multi-Ingredient Cream (Hydrocerin Cream) 0 ea TOP BID [facility] Last Admin: 06/27/18 09:36 Dose: 1 applic Ondansetron HCl (Zofran Inj) 4 mg IVP Q6H PRN PRN Reason: Nausea/Vomiting Pantoprazole Sodium (Protonix Ec Tab) 40 mg PO 0600 [facility] Prasugrel (Effient) 10 mg PO DAILY [facility] Last Admin: 06/27/18 09:35 Dose: 10 mg Sitagliptin Phosphate (Januvia) 50 mg PO DAILY [facility] Last Admin: 06/27/18 09:31 Dose: 50 mg Vitamin B Complex/Vit C/Folic Acid (Nephro-Maribel) 1 tab PO 0800 [facility] Last Admin: 06/27/18 09:31 Dose: 1 tab Zolpidem Tartrate (Ambien) 10 mg PO HS [facility]; Protocol Last Admin: 06/26/18 22:21 Dose: 10 mg - Labs Labs: 06/27/18 06:15 06/27/18 06:15 PT 14.2 SECONDS (9.4-12.5) H 06/16/18 05:25 INR 1.23 06/16/18 05:25 APTT 32.9 Seconds (25.1-36.5) 06/16/18 05:25 Attending/Attestation - Attestation I have personally seen and examined this patient.: Yes I have fully participated in the care of the patient.: Yes I have reviewed all pertinent clinical information, including history, physical exam and plan: Yes
[2018-06-27 13:09] VITALS: BP 125/63; PULSE 90; TEMP 98
--- NOTE | 2018-06-28 00:13 | PN ---
DATE: 06/27/2018 SUBJECTIVE: The patient tolerated peripheral vascular angioplasty. PHYSICAL EXAMINATION VITAL SIGNS: Blood pressure is 125/62, heart rate is in the 90s. NECK: Negative JVD. LUNGS: Without rales. HEART: S1, S2. EXTREMITIES: Improved temperature. LABORATORY DATA: Creatinine is 0.7. Hemoglobin is 8.5. IMPRESSION: 1. Status post percutaneous transluminal angioplasty. 2. Stable angina. 3. Status post multivessel percutaneous transluminal coronary angioplasty and stent of the coronary arteries. 4. Renal insufficiency which is better after aggressive hydration. 5. Hypercholesterolemia. 6. Hypertension. 7. Diabetes mellitus. Given these findings, the patient is doing well. The patient is scheduled for discharge. Lei Rivera MD
[2018-06-28] MEDS ORDERED: Pantoprazole 40 mg EC Tab PO SCH (06:00)
== END 2018-06-27 17:45 | DRG 270 ==
LOC: ED 16:03 → ERH 17:16 → 2RNO 20:47 → OBSVTOIN 06-15 14:55 → 2RSO 06-16 10:48
PROVIDERS: ADMIT Family Medicine; ATTEND Family Medicine
PROC: 02703DZ Dilation of Coronary Artery, One Artery with Intraluminal Device, Percutaneous Approach (ICD-10-PCS; 2018-06-16)
PROC: 4A023N7 Measurement of Cardiac Sampling and Pressure, Left Heart, Percutaneous Approach (ICD-10-PCS; 2018-06-16)
PROC: B2151ZZ Fluoroscopy of Left Heart using Low Osmolar Contrast (ICD-10-PCS; 2018-06-16)
PROC: B2111ZZ Fluoroscopy of Multiple Coronary Arteries using Low Osmolar Contrast (ICD-10-PCS; 2018-06-16)
PROC: 3E053PZ Introduction of Platelet Inhibitor into Peripheral Artery, Percutaneous Approach (ICD-10-PCS; 2018-06-16)
PROC: 02703DZ Dilation of Coronary Artery, One Artery with Intraluminal Device, Percutaneous Approach (ICD-10-PCS; 2018-06-19)
PROC: 4A023N7 Measurement of Cardiac Sampling and Pressure, Left Heart, Percutaneous Approach (ICD-10-PCS; 2018-06-19)
PROC: B2161ZZ Fluoroscopy of Right and Left Heart using Low Osmolar Contrast (ICD-10-PCS; 2018-06-19)
PROC: 30233N1 Transfusion of Nonautologous Red Blood Cells into Peripheral Vein, Percutaneous Approach (ICD-10-PCS; 2018-06-20)
PROC: 04CN3ZZ Extirpation of Matter from Left Popliteal Artery, Percutaneous Approach (ICD-10-PCS; principal; 2018-06-26)
PROC: 04CS3ZZ Extirpation of Matter from Left Posterior Tibial Artery, Percutaneous Approach (ICD-10-PCS; 2018-06-26)
PROC: 047S3ZZ Dilation of Left Posterior Tibial Artery, Percutaneous Approach (ICD-10-PCS; 2018-06-26)
PROC: 047N3ZZ Dilation of Left Popliteal Artery, Percutaneous Approach (ICD-10-PCS; 2018-06-26)
DX: E11.51 Type 2 diabetes mellitus with diabetic peripheral angiopathy without gangrene (principal); I21.4 Non-ST elevation (NSTEMI) myocardial infarction; I50.23 Acute on chronic systolic (congestive) heart failure; I13.0 Hypertensive heart and chronic kidney disease with heart failure and stage 1 through stage 4 chronic kidney disease, or unspecified chronic kidney disease; I25.110 Atherosclerotic heart disease of native coronary artery with unstable angina pectoris; E87.3 Alkalosis; L03.116 Cellulitis of left lower limb; N17.9 Acute kidney failure, unspecified; N39.0 Urinary tract infection, site not specified; L97.429 Non-pressure chronic ulcer of left heel and midfoot with unspecified severity; E11.621 Type 2 diabetes mellitus with foot ulcer; E11.65 Type 2 diabetes mellitus with hyperglycemia; E78.00 Pure hypercholesterolemia, unspecified; E87.6 Hypokalemia; K21.9 Gastro-esophageal reflux disease without esophagitis; E11.22 Type 2 diabetes mellitus with diabetic chronic kidney disease; N18.9 Chronic kidney disease, unspecified; E86.0 Dehydration; D64.9 Anemia, unspecified; F41.9 Anxiety disorder, unspecified; L30.9 Dermatitis, unspecified; Z79.01 Long term (current) use of anticoagulants; Z86.711 Personal history of pulmonary embolism; Z79.84 Long term (current) use of oral hypoglycemic drugs; Z91.14 Patient's other noncompliance with medication regimen

== ENCOUNTER 2018-06-27 17:48 | Inpatient (IN) | payer MEDICARE ==
[2018-06-27] MEDS: Insulin Reg-MEDIUM-Coverage SC SCH (21:18)
[2018-06-28] MEDS ORDERED: Influenza Vaccine 60 mcg/0.5 mL SYR (4YR UP) IM ONE (00:11)
[2018-06-28] MEDS ORDERED: Pneumococcal 23-Valent Vaccine IM ONE (00:11)
[2018-06-28] MEDS: Pantoprazole 40 mg EC Tab PO SCH (05:42)
[2018-06-28] MEDS: Insulin Reg-MEDIUM-Coverage SC SCH ×3 (07:04→18:32)
[2018-06-28 07:17] LABS: HEMOGLOBIN 7.6 g/dL (12.0-16.0); MEAN CELL VOLUME 78.6 fl (80.0-105.0); MEAN CORPUSCULAR HEMOGLOBIN 25.8 pg (25.0-35.0); MEAN CORPUSCULAR HGB CONC 32.8 g/dl (31.0-37.0); MEAN PLATELET VOLUME 9.6 fl (7.0-11.0); RBC 2.95 10^6/uL (3.5-6.1); WHITE BLOOD COUNT 10.1 10^3/uL (4.5-11.0)
[2018-06-28 07:34] LABS: ALB/GLOB RATIO 0.9 (1.1-1.8); ALBUMIN 2.9 g/dL (3.0-4.8); ALT/SGPT 34 U/L (7-56); AST/SGOT 21 U/L (14-36); BLOOD UREA NITROGEN 16 mg/dL (7-21); CALCIUM 8.3 mg/dL (8.4-10.5); GFR NON-AFRICAN AMERICAN > 60
[2018-06-28] MEDS: Multivitamin Vitamin B Complex (Nephro-Vite) Tab PO SCH (08:14)
[2018-06-28] MEDS ORDERED: Potassium Chloride 20 mEq ER Tab PO ONE (09:51)
[2018-06-28] MEDS: Hydrocerin(120 gm) TOP SCH ×2 (11:04→18:33)
[2018-06-28] MEDS ORDERED: Morphine 4 mg/ml ISec IVP PRN (11:23)
[2018-06-28] MEDS: Morphine 2 mg/ml ISec IVP PRN (12:10)
--- NOTE | 2018-06-28 12:43 | CP.PCM.CON ---
History of Present Illness - History of Present Illness History of Present Illness: 72 year old female with PMH of DVT, chronic CHF, CAD S/P PCI initially came in to [facility] because of left foot pain and was found to have left foot cellulitis. She was treated for this with antibiotics and has done well. She also had angiop lasty of the left leg and the procedure went well. She is now transferred to [facility] for continued medical therapy and physical therapy. Infectious diseases consult is requested to see if the patient still needs antibiotics. She is comfortable in bed, no fever or chills, no increase in pain in the left leg or foot, no nausea or vomiting, no chest pain, no SOB, no headache or dizziness, no abdominal pain, no diarrhea, no dysuria. Review of Systems - Review of Systems All systems: reviewed and no additional remarkable complaints except (as per HPI) Past Patient History - Past Social History Smoking Status: Never Smoked - CARDIAC Hx Hypercholesterolemia: Yes Hx Hypertension: Yes - PULMONARY Hx Respiratory Disorders: No - NEUROLOGICAL Hx Neurological Disorder: No - HEENT Hx HEENT Problems: No - RENAL Hx Chronic Kidney Disease: No - ENDOCRINE/METABOLIC Hx Diabetes Mellitus Type 2: Yes - HEMATOLOGICAL/ONCOLOGICAL Hx Blood Transfusions: No Hx Blood Transfusion Reaction: No - INTEGUMENTARY Hx Dermatological Problems: Yes Other/Comment: multiple small red areas of skin to right knee and lower right leg, thick toenails dry skin feet, ble +2 pitting edema, scratch feliz to r arm and lle - MUSCULOSKELETAL/RHEUMATOLOGICAL Hx Falls: Yes - GASTROINTESTINAL Hx Gastrointestinal Disorders: No - GENITOURINARY/GYNECOLOGICAL Hx Genitourinary Disorders: No Hx Reproductive Disorders: No - PSYCHIATRIC Hx Psychophysiologic Disorder: Yes Hx Anxiety: Yes Hx Substance Use: No - SURGICAL HISTORY Hx Surgeries: Yes - ANESTHESIA Hx Anesthesia Reactions: No Hx Malignant Hyperthermia: No Meds Allergies/Adverse Reactions: Allergies Allergy/AdvReac Type Severity Reaction Status Date / Time No Known Allergies Allergy Verified 06/27/18 18:08 - Medications Medications: Current Medications Amlodipine Besylate (Norvasc) 5 mg PO DAILY [facility]; Protocol Aspirin (Aspirin Chewable) 81 mg PO DAILY [facility]; Protocol Atorvastatin Calcium (Lipitor) 40 mg PO DIN [facility]; Protocol Cyanocobalamin (Vitamin B12 1000 Mcg Tab) 1,000 mcg PO DAILY [facility]; Protocol Ferrous Gluconate (Fergon) 324 mg PO TID [facility]; Protocol Insulin Human Regular (Humulin R Med) 0 units SC [facility]; Protocol Last Admin: 06/27/18 21:18 Dose: Not Given Isosorbide Mononitrate (Imdur) 60 mg PO 0600 [facility]; Protocol Last Admin: 06/28/18 05:41 Dose: 60 mg Losartan Potassium (Cozaar) 100 mg PO DAILY [facility]; Protocol Metoprolol Tartrate (Lopressor) 25 mg PO 0800,1800 [facility]; Protocol Multi-Ingredient Cream (Hydrocerin Cream) 0 ea TOP BID [facility]; Protocol Ondansetron HCl (Zofran Inj) 4 mg IVP Q6H PRN; Protocol PRN Reason: Nausea/Vomiting Pantoprazole Sodium (Protonix Ec Tab) 40 mg PO 0600 [facility]; Protocol Last Admin: 06/28/18 05:42 Dose: 40 mg Prasugrel (Effient) 10 mg PO DAILY [facility]; Protocol Sitagliptin Phosphate (Januvia) 50 mg PO DAILY [facility]; Protocol Vitamin B Complex/Vit C/Folic Acid (Nephro-Maribel) 1 tab PO 0800 [facility]; Protocol Zolpidem Tartrate (Ambien) 5 mg PO HS [facility]; Protocol Last Admin: 06/27/18 21:17 Dose: 5 mg Physical Exam - Constitutional Appears: Chronically Ill - Head Exam Head Exam: NORMAL INSPECTION - Respiratory Exam Respiratory Exam: Decreased Breath Sounds - Cardiovascular Exam Cardiovascular Exam: +S1, +S2 - GI/Abdominal Exam GI & Abdominal Exam: Soft. absent: Tenderness - Extremities Exam Additional comments: left lower extremity with dressings in place Results - Vital Signs Recent Vital Signs: Last Vital Signs Temp 98.5 F 06/27/18 23:59 Pulse 90 06/27/18 23:59 Resp 18 06/27/18 23:59 BP 140/64 06/27/18 23:59 Pulse Ox - Labs Result Diagrams: 06/28/18 05:20 06/28/18 05:20 Labs: Laboratory Results - last 24 hr 06/27/18 06/28/18 21:09 05:22 POC Glucose (mg/dL) 149 H 113 H Assessment & Plan - Assessment and Plan (Free Text) Plan: Assessment S/P treatment with antibiotics of left foot cellulitis S/P left lower extremity angioplasty DVT chronic CHF CAD S/P PCI Plan continue to monitor off antibiotics since she is at risk for infections discussed with Dr. Chisholm
--- NOTE | 2018-06-28 14:15 | CP.PCM.CON ---
History of Present Illness - History of Present Illness History of Present Illness: Nephrology Consultation Note: Assessment: Stable Acute Kidney Injury (N17.9) resolved iron def anemia, CHF, cellulitis CAD s/p stent and PVD 8 mm left non obs calculus hypokalemia Plan No acute need for renal replacement therapy at this time. Hypertension control with meds as ordered. Maintain hemodynamics stable. Avoid hypotension. Patient on losartan Monitor Input/Output, daily weights and renal function with basic metabolic panel continue with iron and MVI CAD/CHF management as per cardiology. can result diuretics from renal perspective, as tolerated by BP. PRBC as needed. supplement lytes as needed. ID following Dose meds/antibiotics for GFR >60. Glycemic control Further work up/management as per primary team Thanks for allowing me to participate in care of your patient. Will follow patient with you further prn basis. . Please call if any Qs Dr Cassius Hernández Office: [phone] Chief Complaint; leg pain Reason for consult: Acute Kidney Injury follow up HPI: Pt is a 72 F with hx of CHF, hypertension (years) presented with complaints of left foot cellulitis and found to have PVD s/p interevention and CAD s/p stent. also had BARTOLO with peaked cr 1.3. anemia. left 8 mm non obs calculus. pt now on TRCU and seen for BARTOLO follow up Denies OTC/herbal meds or NSAIDs No recent iodinated contrast exposure. No obvious episodes of low BP. ROS: Cardiovascular: No chest pain. Pulmonary: No shortness of breath Gastrointestinal: denies abdominal pain No nausea. No vomiting. Genitourinary: No pain while urinating. Denies blood in urine. All other negative except as mentioned in HPI. c/o leg pain Physical Examination: General Appearance: Comfortable, in no acute respiratory distress, co-operative . Vitals reviewed and noted as below Head; Atraumatic, normocephalic ENT: no ulcers no thrush. Tongue is midline. Oropharynx: no rash or ulcers. EYES: Pupils are equal, round and reactive to light accommodation. Eye muscles and extraocular movement intact. Sclera is anicteric. Neck; supple no lymphadenopathy, no thyromegaly or bruit Lungs: Normal respiratory rate/effort. Breath sounds bilateral equal and clear Heart: Normal rate. s1s2 normal. No rub or gallop. Extremities: no edema. No varicose veins. left foot dressed. Neurological: Patient is alert, awake and oriented to person, place and time. No focal deficit. Strength bilateral appropriate and equal Skin: Warm and dry. Normal turgor. No rash. Palpitation: Normal elasticity for age Abdomen: Abdomen is soft. Bowel sounds +. There is no abdominal tenderness, no guarding/rigidity no organomegaly Psych: limited insight and normal affect/mood MSK: no joint tenderness or swelling. Digits and nails normal, no deformity : kidney or bladder not palpable Labs/imaging reviewed. Past medical history, past surgical history, family history, social history, allergy reviewed and noted as below Family hx: no hx of CKD. Rest non-contributory Past Patient History - Past Social History Smoking Status: Never Smoked - CARDIAC Hx Cardiac Disorders: Yes Hx Hypertension: Yes - PULMONARY Hx Respiratory Disorders: No - NEUROLOGICAL Hx Neurological Disorder: No - HEENT Hx HEENT Problems: No - RENAL Hx Chronic Kidney Disease: No - ENDOCRINE/METABOLIC Hx Diabetes Mellitus Type 2: Yes - HEMATOLOGICAL/ONCOLOGICAL Hx Blood Transfusions: No Hx Blood Transfusion Reaction: No - INTEGUMENTARY Hx Dermatological Problems: Yes Other/Comment: multiple small red areas of skin to right knee and lower right leg, thick toenails dry skin feet, ble +2 pitting edema, scratch feliz to r arm and lle - MUSCULOSKELETAL/RHEUMATOLOGICAL Hx Falls: Yes - GASTROINTESTINAL Hx Gastrointestinal Disorders: No - GENITOURINARY/GYNECOLOGICAL Hx Genitourinary Disorders: No Hx Reproductive Disorders: No - PSYCHIATRIC Hx Psychophysiologic Disorder: Yes Hx Anxiety: Yes Hx Substance Use: No - SURGICAL HISTORY Hx Surgeries: Yes - ANESTHESIA Hx Anesthesia Reactions: No Hx Malignant Hyperthermia: No Meds Allergies/Adverse Reactions: Allergies Allergy/AdvReac Type Severity Reaction Status Date / Time No Known Allergies Allergy Verified 06/27/18 18:08 - Medications Medications: Current Medications Amlodipine Besylate (Norvasc) 5 mg PO DAILY [facility]; Protocol Last Admin: 06/28/18 11:05 Dose: 5 mg Aspirin (Aspirin Chewable) 81 mg PO 0800 [facility]; Protocol Atorvastatin Calcium (Lipitor) 40 mg PO DIN [facility]; Protocol Cyanocobalamin (Vitamin B12 1000 Mcg Tab) 1,000 mcg PO DAILY [facility]; Protocol Last Admin: 06/28/18 11:06 Dose: 1,000 mcg Ferrous Gluconate (Fergon) 324 mg PO TID [facility]; Protocol Last Admin: 06/28/18 11:03 Dose: 324 mg Insulin Human Regular (Humulin R Med) 0 units SC ACHS [facility]; Protocol Last Admin: 06/28/18 12:02 Dose: 1 unit Isosorbide Mononitrate (Imdur) 60 mg PO 0600 [facility]; Protocol Last Admin: 06/28/18 05:41 Dose: 60 mg Losartan Potassium (Cozaar) 100 mg PO DAILY [facility]; Protocol Last Admin: 06/28/18 11:02 Dose: 100 mg Metoprolol Tartrate (Lopressor) 25 mg PO 0800,1800 [facility]; Protocol Last Admin: 06/28/18 08:14 Dose: 25 mg Morphine Sulfate (Morphine) 1 mg IVP Q3H PRN; Protocol PRN Reason: Pain, severe (8-10) Last Admin: 06/28/18 12:10 Dose: 1 mg Multi-Ingredient Cream (Hydrocerin Cream) 0 ea TOP BID [facility]; Protocol Last Admin: 06/28/18 11:04 Dose: 1 applic Ondansetron HCl (Zofran Inj) 4 mg IVP Q6H PRN; Protocol PRN Reason: Nausea/Vomiting Pantoprazole Sodium (Protonix Ec Tab) 40 mg PO 0600 [facility]; Protocol Last Admin: 06/28/18 05:42 Dose: 40 mg Prasugrel (Effient) 10 mg PO DAILY [facility]; Protocol Last Admin: 06/28/18 12:01 Dose: 10 mg Sitagliptin Phosphate (Januvia) 50 mg PO DAILY [facility]; Protocol Last Admin: 06/28/18 11:05 Dose: Not Given Vitamin B Complex/Vit C/Folic Acid (Nephro-Maribel) 1 tab PO 0800 [facility]; Protocol Last Admin: 06/28/18 08:14 Dose: 1 tab Zolpidem Tartrate (Ambien) 5 mg PO HS [facility]; Protocol Last Admin: 06/27/18 21:17 Dose: 5 mg Results - Vital Signs Recent Vital Signs: Last Vital Signs Temp 98.5 F 06/27/18 23:59 Pulse 87 06/28/18 13:28 Resp 18 06/27/18 23:59 BP 119/61 06/28/18 11:05 Pulse Ox 96 06/28/18 13:28 - Labs Result Diagrams: 06/28/18 05:20 06/28/18 05:20 Labs: Laboratory Results - last 24 hr 06/27/18 06/28/18 06/28/18 21:09 05:20 05:20 WBC 10.1 RBC 2.95 L Hgb 7.6 L Hct 23.2 L MCV 78.6 L MCH 25.8 MCHC 32.8 RDW 14.0 Plt Count 131 MPV 9.6 Sodium 137 Potassium 3.6 Chloride 105 Carbon Dioxide 26 Anion Gap 10 BUN 16 Creatinine 0.9 Est GFR ( Amer) > 60 Est GFR (Non-Af Amer) > 60 POC Glucose (mg/dL) 149 H Random Glucose 111 H Calcium 8.3 L Total Bilirubin 0.4 AST 21 ALT 34 Alkaline Phosphatase 79 Total Protein 6.0 Albumin 2.9 L Globulin 3.1 Albumin/Globulin Ratio 0.9 L 06/28/18 06/28/18 05:22 11:28 WBC RBC Hgb Hct MCV MCH MCHC RDW Plt Count MPV Sodium Potassium Chloride Carbon Dioxide Anion Gap BUN Creatinine Est GFR ( Amer) Est GFR (Non-Af Amer) POC Glucose (mg/dL) 113 H 196 H Random Glucose Calcium Total Bilirubin AST ALT Alkaline Phosphatase Total Protein Albumin Globulin Albumin/Globulin Ratio
[2018-06-28 17:23] VITALS: BMI 25.3
--- NOTE | 2018-06-28 18:58 | HP ---
DATE: 06/28/2018 HISTORY OF PRESENT ILLNESS: She was resting in the hospital side. She had numerous procedures done. She had cardiac cath with three stents. She had a left leg interventional radiology procedure with stents placed in the left leg. She was doing well. She had PAD, CAD. She did have a positive occult blood. GI was on the case, they did not want to do anything at that time, and the hemoglobin was always above 8. Now she is on the TCU side, the hemoglobin is 7.6. She is on iron. We will keep an eye on that. She has UTI also. She has a past medical history of being a 72-year-old female who had weight gain. Lower extremities are very swollen. The foot was also quite red and inflamed. She was given IV Lasix and also IV antibiotics. She had issues with circulation in the legs. She had stents placed. She had a coronary issue and was stented. PAST MEDICAL HISTORY: Peripheral artery disease, coronary artery disease, cellulitis, hypertension, CHF, type 2 diabetes, arthritis, reflux, anxiety, insomnia, history of cholecystectomy. FAMILY HISTORY: She has diabetes in the family. SOCIAL HISTORY: Never smoked. No alcohol. No drugs. MEDICATIONS: She is currently on Ambien, aspirin, Cozaar, Effient, Fergon, insulin, Hydrocerin cream, Imdur, Januvia, Lipitor, Lopressor, Nephro-Maribel, Norvasc, Protonix, vitamin B12, and Zofran. ALLERGIES: NO KNOWN DRUG ALLERGIES. REVIEW OF SYSTEMS: She is resting comfortably in the TCU. She said she feels better. The left leg feels better. No chest pain, no leg pain, no shortness of breath. No acute vision or hearing changes. No chest pain, no palpitations, no shortness of breath or cough at this time. No abdominal pain, nausea, vomiting, constipation, diarrhea. The leg is also much improved. The skin is less red. The legs are less swollen. She is trying to walk, but she is on the TCU, she wants to get better. PHYSICAL EXAMINATION: VITAL SIGNS: She has a 98.5 temperature; 96 pulse, 90 apical; 140/64 blood pressure; 18 respiratory rate; 99% O2 sat on room air. GENERAL: She is alert, comfortable, much more comfortable than a few days ago, well appearing, excited about physical therapy. She is eating well, alert and oriented x3. HEAD: Atraumatic, normocephalic. Extraocular muscles are intact. Pupils react to light and accommodation. Throat is moist. NECK: Supple. HEART: Regular rate. Normal S1, S2. LUNGS: Clear to auscultation bilaterally, fair effort. No wheezes, rhonchi or rales. ABDOMEN: Soft, nontender. Positive bowel sounds. No guarding, no rebound or CVA tenderness. EXTREMITIES: Have trace edema if any, much better, less redness, they are bandaged. NEUROLOGIC: GCS is 15. Cranial nerves II through XII grossly intact. Speech is normal. Alert and oriented x3. SKIN: The redness in the skin is much improved. LYMPHATICS: Thyroid midline. No palpable appreciable lymphadenopathy. LABORATORY DATA: She had blood tests, 10.1 white count; 7.6 hemoglobin, dropped from 8.4 to 7.6, she is on iron, we will keep an eye on that and call GI back in; hematocrit 23.2; platelets are 131. She has 137 sodium, potassium 3.6, BUN 16, creatinine 0.9, GFR is greater than 60, sugar is 113, calcium is 8.3. Total bili is 0.4, AST is 21, ALT is 34, alk phos 79, total protein 6. ASSESSMENT/PLAN: She is on multiple consults, they also called in GI. Hopefully, she will improve with her hemoglobin and physical therapy. I want to get her hemoglobin above 8. I will continue with aggressive treatment and care on the TCU status post procedures and stent placements for peripheral arterial disease, coronary artery disease, urinary tract infection, anemia and now she is more anemic. Rick Chisholm DO
--- NOTE | 2018-06-28 21:45 | PN ---
DATE: 06/28/2018 SUBJECTIVE: The patient is in the TCU. She worked with physical therapy today. PHYSICAL EXAMINATION: VITAL SIGNS: Stable. Heart rate is stable. NECK: Negative JVD. LUNGS: Without rales. HEART: S1, S2. Extremities: Without edema. LABORATORY DATA: Reviewed. IMPRESSION: 1. Status post percutaneous transluminal coronary angioplasty and stent of left anterior descending and right coronary artery. 2. Coronary artery disease. 3. Status post percutaneous coronary intervention of the occluded left femoral artery. 4. Diabetes mellitus. 5. History of pulmonary embolism. Given these findings, the patient will need to be on anticoagulation as well as Plavix. The patient is doing well with physical therapy which should help with her weakness. Lei Rivera MD
[2018-06-29] MEDS: Pantoprazole 40 mg EC Tab PO SCH (05:36)
[2018-06-29] MEDS: Insulin Reg-MEDIUM-Coverage SC SCH ×5 (05:36→22:52)
[2018-06-29 06:54] LABS: MEAN CORPUSCULAR HEMOGLOBIN 26.5 pg (25.0-35.0); MEAN CORPUSCULAR HGB CONC 33.1 g/dl (31.0-37.0); MEAN PLATELET VOLUME 9.6 fl (7.0-11.0); RBC 3.7 10^6/uL (3.5-6.1); RED CELL DISTRIBUTION WIDTH 14.3 % (11.5-14.5); WHITE BLOOD COUNT 9.5 10^3/uL (4.5-11.0)
[2018-06-29 06:55] LABS: ALB/GLOB RATIO 0.9 (1.1-1.8); ALBUMIN 2.9 g/dL (3.0-4.8); ALT/SGPT 32 U/L (7-56); AST/SGOT 23 U/L (14-36); BLOOD UREA NITROGEN 15 mg/dL (7-21); CALCIUM 8.3 mg/dL (8.4-10.5); GFR NON-AFRICAN AMERICAN > 60
[2018-06-29 07:12] LABS: HEMOGLOBIN 9.8 g/dL (12.0-16.0)
[2018-06-29] MEDS: Multivitamin Vitamin B Complex (Nephro-Vite) Tab PO SCH (08:48)
[2018-06-29] MEDS ORDERED: Potassium Chloride 20 mEq ER Tab PO ONE (09:31)
[2018-06-29] MEDS: Hydrocerin(120 gm) TOP SCH ×2 (09:54→17:40)
--- NOTE | 2018-06-29 09:59 | PN ---
DATE: 06/29/2018 SUBJECTIVE: She is in the Transitional Care Unit. After talking with house wirer helper, Dr. Rivera, we had to transfuse her yesterday, 2 units of packed red blood cells. Hemoglobin is up to 9.8, then medicines were adjusted Eliquis 2.5 twice a day. She will continue on the Effient 10 mg daily. She will stop the Imdur and she is comfortable now in bed. She does have some pain in the leg, status post stents and cardiac stent, but overall she is improved. PHYSICAL EXAMINATION: VITAL SIGNS: She has a 98.1 temp, 92 pulse, 138/72 blood pressure, 18 respiratory rate, 95% O2 sat on room air. HEENT: Head is atraumatic, normocephalic. HEART: Regular rate. LUNGS: Decreased breath sounds, but clear. ABDOMEN: Soft. EXTREMITIES: No edema. LABORATORY DATA: She has a 9.5 white count, 9.8 hemoglobin, 29.6 hematocrit with a 149 platelets. She has 139 sodium, potassium 3.4. I am going to give her some potassium. She has a BUN of 50, creatinine is 0.8, GFR is greater than 60, sugar is 134, calcium is 8.3, total bili is 0.7, AST is 23, ALT is 32, alk phos 77, total protein is 6. ASSESSMENT AND PLAN: She is being seen by Cardiology, renal and Infectious Disease. We will continue with aggressive treatment and care. She has peripheral artery disease, coronary artery disease, urinary tract infection, anemia and hopefully she will do well with physical therapy and will be able to go home in the next 6 days. Rick Chisholm DO [facility]
--- NOTE | 2018-06-29 12:15 | CP.PCM.PN ---
Subjective - Date & Time of Evaluation Date of Evaluation: 06/29/18 Time of Evaluation: 10:00 - Subjective Subjective: No fevers, no increased pain in the left leg or foot, no nausea or vomiting. Objective - Vital Signs/Intake and Output Vital Signs (last 24 hours): Temp Pulse Resp BP Pulse Ox 98.5 F 97 H 18 119/61 06/27/18 23:59 06/28/18 08:14 06/27/18 23:59 06/28/18 11:05 - Medications Medications: Current Medications Amlodipine Besylate (Norvasc) 5 mg PO DAILY [facility]; Protocol Last Admin: 06/28/18 11:05 Dose: 5 mg Aspirin (Aspirin Chewable) 81 mg PO 0800 [facility]; Protocol Atorvastatin Calcium (Lipitor) 40 mg PO DIN [facility]; Protocol Cyanocobalamin (Vitamin B12 1000 Mcg Tab) 1,000 mcg PO DAILY [facility]; Protocol Last Admin: 06/28/18 11:06 Dose: 1,000 mcg Ferrous Gluconate (Fergon) 324 mg PO TID [facility]; Protocol Last Admin: 06/28/18 11:03 Dose: 324 mg Insulin Human Regular (Humulin R Med) 0 units SC ACHS [facility]; Protocol Last Admin: 06/28/18 12:02 Dose: 1 unit Isosorbide Mononitrate (Imdur) 60 mg PO 0600 [facility]; Protocol Last Admin: 06/28/18 05:41 Dose: 60 mg Losartan Potassium (Cozaar) 100 mg PO DAILY [facility]; Protocol Last Admin: 06/28/18 11:02 Dose: 100 mg Metoprolol Tartrate (Lopressor) 25 mg PO 0800,1800 [facility]; Protocol Last Admin: 06/28/18 08:14 Dose: 25 mg Morphine Sulfate (Morphine) 1 mg IVP Q3H PRN; Protocol PRN Reason: Pain, severe (8-10) Last Admin: 06/28/18 12:10 Dose: 1 mg Multi-Ingredient Cream (Hydrocerin Cream) 0 ea TOP BID [facility]; Protocol Last Admin: 06/28/18 11:04 Dose: 1 applic Ondansetron HCl (Zofran Inj) 4 mg IVP Q6H PRN; Protocol PRN Reason: Nausea/Vomiting Pantoprazole Sodium (Protonix Ec Tab) 40 mg PO 0600 [facility]; Protocol Last Admin: 11/07/18 05:42 Dose: 40 mg Prasugrel (Effient) 10 mg PO DAILY [facility]; Protocol Last Admin: 06/28/18 12:01 Dose: 10 mg Sitagliptin Phosphate (Januvia) 50 mg PO DAILY [facility]; Protocol Last Admin: 06/28/18 11:05 Dose: Not Given Vitamin B Complex/Vit C/Folic Acid (Nephro-Maribel) 1 tab PO 0800 [facility]; Protocol Last Admin: 06/28/18 08:14 Dose: 1 tab Zolpidem Tartrate (Ambien) 5 mg PO HS [facility]; Protocol Last Admin: 06/27/18 21:17 Dose: 5 mg - Labs Labs: 06/28/18 05:20 06/28/18 05:20 - Constitutional Appears: No Acute Distress, Chronically Ill - Head Exam Head Exam: NORMAL INSPECTION - Neck Exam Neck Exam: absent: Meningismus - Respiratory Exam Respiratory Exam: Decreased Breath Sounds. absent: Rales - Cardiovascular Exam Cardiovascular Exam: +S1, +S2 - GI/Abdominal Exam GI & Abdominal Exam: Soft. absent: Tenderness - Extremities Exam Additional comments: left foot with dressings in place Assessment and Plan - Assessment and Plan (Free Text) Plan: Assessment S/P treatment with antibiotics of left foot cellulitis S/P left lower extremity angioplasty DVT chronic CHF CAD S/P PCI Plan continue to monitor off antibiotics since she is at risk for nosocomial infections discussed with Dr. Chisholm
--- NOTE | 2018-06-29 12:24 | PN ---
CARDIOLOGY FOLLOWUP DATE: 06/29/2018 SUBJECTIVE: The patient is comfortable. She is status post transfusions packed red blood cells. PHYSICAL EXAMINATION: VITAL SIGNS: Blood pressure is 138/72 and heart rates in the 90s. NECK: Negative JVD. LUNGS: Without rales. HEART: S1 and S2. EXTREMITIES: No edema. LABORATORY DATA: Hemoglobin is up to 9.8. Chemistries, BUN and creatinine unremarkable. Glucose 134. ASSESSMENT: 1. The patient is stable post transfusion. 2. Stable angina. 3. Status post multivessel percutaneous transluminal coronary angioplasty and stent. 4. Status post percutaneous transluminal angioplasty of an occluded left lower extremity vessel. 5. Diabetes mellitus. 6. History of recent pulmonary embolism. Given these findings, we will restart the patient on her Eliquis. We will continue her antiplatelet therapy. We will stop the aspirin. We will need to monitor her hemoglobin carefully while she is on her Eliquis. Lei Rivera MD
--- NOTE | 2018-06-29 12:28 | CP.PCM.CON ---
History of Present Illness - History of Present Illness History of Present Illness: Podiatry consult note for Dr. Mcintosh 72 yo female with pmhx of VT, chronic CHF, CAD S/P PCI seen and evaluated at bedside in TCU with Dr. Mcintosh. Seen resting comfortably. Followed by podiatry while in house for left foot chronic wound and discoloration/skin breakdown in toes. Dr. Kirk performed angioplasty on Tuesday and she states she has been feeling a little better since the procedure but has noticed no change in the color of her toes. States she is still in pain and rates it at an 8/10. States that she has been walking with physical therapy and that she does have pain but is able to walk. She denies N/V/F/C/SOB/CP today and has no new pedal complaints. PMHx - VT, chronic CHF, CAD S/P PCI PSHx - cholecystectomy, left leg angioplasty All - NKDA Past Patient History - Past Social History Smoking Status: Never Smoked - CARDIAC Hx Cardiac Disorders: Yes Hx Hypertension: Yes - PULMONARY Hx Respiratory Disorders: No - NEUROLOGICAL Hx Neurological Disorder: No - HEENT Hx HEENT Problems: No - RENAL Hx Chronic Kidney Disease: No - ENDOCRINE/METABOLIC Hx Diabetes Mellitus Type 2: Yes - HEMATOLOGICAL/ONCOLOGICAL Hx Blood Transfusions: No Hx Blood Transfusion Reaction: No - INTEGUMENTARY Hx Dermatological Problems: Yes Other/Comment: multiple small red areas of skin to right knee and lower right leg, thick toenails dry skin feet, ble +2 pitting edema, scratch feliz to r arm and lle - MUSCULOSKELETAL/RHEUMATOLOGICAL Hx Falls: Yes - GASTROINTESTINAL Hx Gastrointestinal Disorders: No - GENITOURINARY/GYNECOLOGICAL Hx Genitourinary Disorders: No Hx Reproductive Disorders: No - PSYCHIATRIC Hx Psychophysiologic Disorder: Yes Hx Anxiety: Yes Hx Substance Use: No - SURGICAL HISTORY Hx Surgeries: Yes - ANESTHESIA Hx Anesthesia Reactions: No Hx Malignant Hyperthermia: No Meds Allergies/Adverse Reactions: Allergies Allergy/AdvReac Type Severity Reaction Status Date / Time No Known Allergies Allergy Verified 06/27/18 18:08 - Medications Medications: Current Medications Amlodipine Besylate (Norvasc) 5 mg PO DAILY [facility]; Protocol Last Admin: 06/29/18 09:52 Dose: 5 mg Apixaban (Eliquis) 2.5 mg PO BID [facility]; Protocol Last Admin: 06/29/18 10:05 Dose: 2.5 mg Atorvastatin Calcium (Lipitor) 40 mg PO DIN [facility]; Protocol Last Admin: 06/28/18 18:33 Dose: Not Given Cyanocobalamin (Vitamin B12 1000 Mcg Tab) 1,000 mcg PO DAILY [facility]; Protocol Last Admin: 06/29/18 09:53 Dose: 1,000 mcg Ferrous Gluconate (Fergon) 324 mg PO TID [facility]; Protocol Last Admin: 06/29/18 10:05 Dose: 324 mg Insulin Human Regular (Humulin R Med) 0 units SC ACHS [facility]; Protocol Last Admin: 06/29/18 12:11 Dose: Not Given Losartan Potassium (Cozaar) 100 mg PO DAILY [facility]; Protocol Last Admin: 06/29/18 09:53 Dose: 100 mg Metoprolol Tartrate (Lopressor) 25 mg PO 0800,1800 [facility]; Protocol Last Admin: 06/29/18 08:48 Dose: 25 mg Morphine Sulfate (Morphine) 1 mg IVP Q3H PRN; Protocol PRN Reason: Pain, severe (8-10) Last Admin: 06/28/18 12:10 Dose: 1 mg Multi-Ingredient Cream (Hydrocerin Cream) 0 ea TOP BID [facility]; Protocol Last Admin: 06/29/18 09:54 Dose: 1 applic Ondansetron HCl (Zofran Inj) 4 mg IVP Q6H PRN; Protocol PRN Reason: Nausea/Vomiting Pantoprazole Sodium (Protonix Ec Tab) 40 mg PO 0600 [facility]; Protocol Last Admin: 06/29/18 05:36 Dose: 40 mg Prasugrel (Effient) 10 mg PO DAILY [facility]; Protocol Last Admin: 06/29/18 09:52 Dose: 10 mg Sitagliptin Phosphate (Januvia) 50 mg PO DAILY [facility]; Protocol Last Admin: 06/29/18 09:53 Dose: 50 mg Vitamin B Complex/Vit C/Folic Acid (Nephro-Maribel) 1 tab PO 0800 [facility]; Protocol Last Admin: 06/29/18 08:48 Dose: 1 tab Zolpidem Tartrate (Ambien) 5 mg PO HS [facility]; Protocol Last Admin: 06/29/18 05:35 Dose: Not Given Physical Exam - Constitutional Appears: Well, Non-toxic, No Acute Distress - Head Exam Head Exam: ATRAUMATIC, NORMOCEPHALIC - Extremities Exam Additional comments: Bilateral lower extremity exam: Vascular: DP/PT nonpalpable B/L. Temperature gradient warm to cool on R, warm to cold on L. CFT < 5 secs to all digits, no edema noted. Pinpoint erythematous lesions possibly indicative of ischemic changes noted on the dorsal aspect of the left foot Derm: no IDM, no open lesions, xerosis and peeling of skin noted B/L, L>R. Deep tissue injury to the heel on the left - scab present. Erythema and ecchymosis noted to the second and third digits. No clinical signs of infection. Ortho: moderate pain on palpation to the left foot Neuro: protective sensation grossly intact - Neurological Exam Neurological exam: Alert, Oriented x3 - Psychiatric Exam Psychiatric exam: Normal Affect, Normal Mood Results - Vital Signs Recent Vital Signs: Last Vital Signs Temp 98.1 F 06/28/18 16:00 Pulse 96 H 06/29/18 09:52 Resp 18 06/28/18 16:00 BP 141/70 06/29/18 09:52 Pulse Ox 95 06/28/18 16:00 - Labs Result Diagrams: 06/29/18 06:00 06/29/18 06:00 Labs: Laboratory Results - last 24 hr 06/28/18 06/29/18 06/29/18 16:30 02:28 05:26 WBC RBC Hgb Hct MCV MCH MCHC RDW Plt Count MPV Sodium Potassium Chloride Carbon Dioxide Anion Gap BUN Creatinine Est GFR ( Amer) Est GFR (Non-Af Amer) POC Glucose (mg/dL) 140 H 117 H 120 H Random Glucose Calcium Total Bilirubin AST ALT Alkaline Phosphatase Total Protein Albumin Globulin Albumin/Globulin Ratio 06/29/18 06/29/18 06/29/18 06:00 06:00 11:57 WBC 9.5 RBC 3.70 Hgb 9.8 L D Hct 29.6 L MCV 80.0 MCH 26.5 MCHC 33.1 RDW 14.3 Plt Count 149 MPV 9.6 Sodium 139 Potassium 3.4 L Chloride 107 Carbon Dioxide 26 Anion Gap 9 L BUN 15 Creatinine 0.8 Est GFR ( Amer) > 60 Est GFR (Non-Af Amer) > 60 POC Glucose (mg/dL) 123 H Random Glucose 134 H Calcium 8.3 L Total Bilirubin 0.7 AST 23 ALT 32 Alkaline Phosphatase 77 Total Protein 6.0 Albumin 2.9 L Globulin 3.1 Albumin/Globulin Ratio 0.9 L Assessment & Plan - Assessment and Plan (Free Text) Assessment: 72 y/o female seen at bedside for left foot with vascular insufficiency, unstageable ulcer to left heel Plan: Patient seen and evaluated with Dr. Mcintosh Labs and vitals reviewed - afebrile, absent leukocytosis Dressings taken down and foot cleansed with sterile saline Eucerin cream applied to foot and lower leg as evidence of dry and scaling skin apparent No dressings applied, open to air Dr. Kirk called regarding ischemic foot, temperature gradient reveals cold digits and distal foot - recs appreciated, f/u No podiatric intervention at this time Will continue to follow patient while in house - Date & Time Date: 06/29/18 Time: 12:34
--- NOTE | 2018-06-29 15:19 | CP.PCM.PN ---
Subjective - Date & Time of Evaluation Date of Evaluation: 06/29/18 Time of Evaluation: 15:18 - Subjective Subjective: Nephrology Consultation Note: Assessment: Stable Acute Kidney Injury (N17.9) resolved iron def anemia, CHF, cellulitis CAD s/p stent and PVD 8 mm left non obs calculus hypokalemia Plan No acute need for renal replacement therapy at this time. Hypertension control with meds as ordered. Maintain hemodynamics stable. Avoid hypotension. Patient on losartan Monitor Input/Output, daily weights and renal function with basic metabolic panel continue with iron and MVI CAD/CHF management as per cardiology. can result diuretics from renal perspective, as tolerated by BP. PRBC as needed. supplement lytes as needed. ID following Dose meds/antibiotics for GFR >60. Glycemic control Further work up/management as per primary team Thanks for allowing me to participate in care of your patient. Will follow patient with you further prn basis. . Please call if any Qs Dr Cassius Hernández Office: [phone] Chief Complaint; leg pain Reason for consult: Acute Kidney Injury follow up HPI: Pt is a 72 F with hx of CHF, hypertension (years) presented with complaints of left foot cellulitis and found to have PVD s/p interevention and CAD s/p stent. also had BARTOLO with peaked cr 1.3. anemia. left 8 mm non obs calculus. pt now on TRCU and seen for BARTOLO follow up Denies OTC/herbal meds or NSAIDs No recent iodinated contrast exposure. No obvious episodes of low BP. ROS: Cardiovascular: No chest pain. Pulmonary: No shortness of breath Gastrointestinal: denies abdominal pain No nausea. No vomiting. Genitourinary: No pain while urinating. Denies blood in urine. All other negative except as mentioned in HPI. c/o leg pain Physical Examination: General Appearance: Comfortable, in no acute respiratory distress, co-operative . Vitals reviewed and noted as below Head; Atraumatic, normocephalic ENT: no ulcers no thrush. Tongue is midline. Oropharynx: no rash or ulcers. EYES: Pupils are equal, round and reactive to light accommodation. Eye muscles and extraocular movement intact. Sclera is anicteric. Neck; supple no lymphadenopathy, no thyromegaly or bruit Lungs: Normal respiratory rate/effort. Breath sounds bilateral equal and clear Heart: Normal rate. s1s2 normal. No rub or gallop. Extremities: no edema. No varicose veins. left foot dressed. Neurological: Patient is alert, awake and oriented to person, place and time. No focal deficit. Strength bilateral appropriate and equal Skin: Warm and dry. Normal turgor. No rash. Palpitation: Normal elasticity for age Abdomen: Abdomen is soft. Bowel sounds +. There is no abdominal tenderness, no guarding/rigidity no organomegaly Psych: limited insight and normal affect/mood MSK: no joint tenderness or swelling. Digits and nails normal, no deformity : kidney or bladder not palpable Labs/imaging reviewed. Past medical history, past surgical history, family history, social history, allergy reviewed and noted as below Family hx: no hx of CKD. Rest non-contributory Objective - Vital Signs/Intake and Output Vital Signs (last 24 hours): Temp Pulse Resp BP Pulse Ox 98.1 F 96 H 18 141/70 95 06/28/18 16:00 06/29/18 09:52 06/28/18 16:00 06/29/18 09:52 06/28/18 16:00 - Medications Medications: Current Medications Amlodipine Besylate (Norvasc) 5 mg PO DAILY [facility]; Protocol Last Admin: 06/29/18 09:52 Dose: 5 mg Apixaban (Eliquis) 2.5 mg PO BID [facility]; Protocol Last Admin: 06/29/18 10:05 Dose: 2.5 mg Atorvastatin Calcium (Lipitor) 40 mg PO DIN [facility]; Protocol Last Admin: 06/28/18 18:33 Dose: Not Given Cyanocobalamin (Vitamin B12 1000 Mcg Tab) 1,000 mcg PO DAILY [facility]; Protocol Last Admin: 06/29/18 09:53 Dose: 1,000 mcg Ferrous Gluconate (Fergon) 324 mg PO TID [facility]; Protocol Last Admin: 06/29/18 14:06 Dose: 324 mg Insulin Human Regular (Humulin R Med) 0 units SC ACHS [facility]; Protocol Last Admin: 06/29/18 12:11 Dose: Not Given Losartan Potassium (Cozaar) 100 mg PO DAILY [facility]; Protocol Last Admin: 06/29/18 09:53 Dose: 100 mg Metoprolol Tartrate (Lopressor) 25 mg PO 0800,1800 [facility]; Protocol Last Admin: 06/29/18 08:48 Dose: 25 mg Morphine Sulfate (Morphine) 1 mg IVP Q3H PRN; Protocol PRN Reason: Pain, severe (8-10) Last Admin: 06/28/18 12:10 Dose: 1 mg Multi-Ingredient Cream (Hydrocerin Cream) 0 ea TOP BID [facility]; Protocol Last Admin: 06/29/18 09:54 Dose: 1 applic Ondansetron HCl (Zofran Inj) 4 mg IVP Q6H PRN; Protocol PRN Reason: Nausea/Vomiting Pantoprazole Sodium (Protonix Ec Tab) 40 mg PO 0600 [facility]; Protocol Last Admin: 06/29/18 05:36 Dose: 40 mg Prasugrel (Effient) 10 mg PO DAILY [facility]; Protocol Last Admin: 06/29/18 09:52 Dose: 10 mg Sitagliptin Phosphate (Januvia) 50 mg PO DAILY [facility]; Protocol Last Admin: 06/29/18 09:53 Dose: 50 mg Vitamin B Complex/Vit C/Folic Acid (Nephro-Maribel) 1 tab PO 0800 [facility]; Protocol Last Admin: 06/29/18 08:48 Dose: 1 tab Zolpidem Tartrate (Ambien) 5 mg PO HS [facility]; Protocol Last Admin: 06/29/18 05:35 Dose: Not Given - Labs Labs: 06/29/18 06:00 06/29/18 06:00
[2018-06-29] MEDS ORDERED: Nitroglycerin 2% Ointment Foilpak UD TOP SCH (21:30)
--- NOTE | 2018-06-29 21:54 | PN ---
DATE: 06/29/2018 TIME: 09:30 p.m. SUBJECTIVE: The patient states that she developed pain in the left foot after transferring to the [facility] last night. The pain is 8/10. Her left forefoot is ischemic with early gangrene of two digits. I reviewed the patient's angiogram. She had one-vessel runoff via the posterior tibial artery, which was the only supply to the foot. Her leg is warm to the hindfoot. The ischemic changes are involving the forefoot. She has a strong Doppler signal at the ankle. I believe the ischemic changes are due to her limited small vessel circulation with superimposed microembolization from the procedure. I will start the patient on heparin along with nitro paste to the left foot. Unfortunately, there are no surgical options to improve her perfusion. I do not think a repeat angiogram is necessary at this point given her pulse exam and Doppler findings. Will reassess the foot with Dr. Mcintosh after the weekend Lei Kirk MD RACHELLE
[2018-06-29] MEDS: Heparin25000 units/250ml 1/2NS 25,000 UNITS/250 ML BAG IV PRN (22:20)
[2018-06-30 04:41] LABS: ALB/GLOB RATIO 0.9 (1.1-1.8); ALBUMIN 3.1 g/dL (3.0-4.8); ALT/SGPT 28 U/L (7-56); AST/SGOT 29 U/L (14-36); BLOOD UREA NITROGEN 16 mg/dL (7-21); CALCIUM 8.6 mg/dL (8.4-10.5); GFR NON-AFRICAN AMERICAN > 60
[2018-06-30 04:47] LABS: HEMOGLOBIN 10.4 g/dL (12.0-16.0); MEAN CELL VOLUME 80.5 fl (80.0-105.0); MEAN CORPUSCULAR HEMOGLOBIN 26.7 pg (25.0-35.0); MEAN CORPUSCULAR HGB CONC 33.1 g/dl (31.0-37.0); MEAN PLATELET VOLUME 9.6 fl (7.0-11.0); RBC 3.9 10^6/uL (3.5-6.1); RED CELL DISTRIBUTION WIDTH 14.6 % (11.5-14.5)
[2018-06-30 04:48] LABS: INR 1.49; PROTHROMBIN TIME 17.1 SECONDS (9.4-12.5)
[2018-06-30 04:59] LABS: PARTIAL THROMBOPLASTIN TIME 276.1 Seconds (25.1-36.5)
[2018-06-30] MEDS: Nitroglycerin 2% Ointment Foilpak UD TOP SCH ×4 (05:46→23:09)
[2018-06-30] MEDS: Pantoprazole 40 mg EC Tab PO SCH (05:47)
[2018-06-30 06:20] LABS: HEMOGLOBIN 9.9 g/dL (12.0-16.0); MEAN CELL VOLUME 80.9 fl (80.0-105.0); MEAN CORPUSCULAR HEMOGLOBIN 26.6 pg (25.0-35.0); MEAN CORPUSCULAR HGB CONC 32.9 g/dl (31.0-37.0); MEAN PLATELET VOLUME 9.7 fl (7.0-11.0); RBC 3.72 10^6/uL (3.5-6.1); RED CELL DISTRIBUTION WIDTH 14.6 % (11.5-14.5); WHITE BLOOD COUNT 10.6 10^3/uL (4.5-11.0)
[2018-06-30] MEDS: Insulin Reg-MEDIUM-Coverage SC SCH ×4 (06:59→22:21)
[2018-06-30] MEDS: Multivitamin Vitamin B Complex (Nephro-Vite) Tab PO SCH (08:10)
[2018-06-30] MEDS: Heparin25000 units/250ml 1/2NS 25,000 UNITS/250 ML BAG IV PRN ×3 (08:37→21:35)
[2018-06-30] MEDS: Hydrocerin(120 gm) TOP SCH ×2 (09:49→17:39)
[2018-06-30] MEDS: Morphine 2 mg/ml ISec IVP PRN (09:56)
--- NOTE | 2018-06-30 11:46 | PN ---
DATE: 06/30/2018 SUBJECTIVE: I saw Tammy resting comfortably in bed. She is having leg pain if she moves the leg. She had stents placed in the left leg and also the heart over the past week in the hospital site. MEDICATIONS: She is on Ambien, Cozaar, Effient. Eliquis is on hold. Fergon. She is on heparin drip that is why it is on hold. Insulin, Hydrocerin cream, Januvia, Lipitor, Lopressor, morphine for pain, Nephro-Maribel, Nitro-Bid, Norvasc, Protonix, vitamin and Zofran. PHYSICAL EXAMINATION: VITAL SIGNS: She has a 98.1 temp, 96 pulse, 141/70 blood pressure, 18 respiratory rate, 95% O2 sat on room air. HEENT: Head is atraumatic, normocephalic. HEART: Regular rate. LUNGS: Decreased breath sounds, but clear to auscultation. ABDOMEN: Soft. EXTREMITIES: The left leg is very painful. The color is not as good as it was status post stent. LABORATORY DATA: She has a 10.6 white count, 9.9 hemoglobin, 30.1 hematocrit with 211 platelets. She has a 139 sodium, potassium 3.7, BUN 16, creatinine 0.9, GFR is greater than 60, sugar is 141, calcium is 8.6, total bili is 0.5, AST is 29, ALT is 28, alk phos 89, total protein is 6.4. ASSESSMENT AND PLAN: She is being seen by Dr. Lei Kirk, the interventional radiologist; Renal; Podiatry; Cardiology; Infectious Disease. There are ischemic changes in the left leg. She is on heparin right now with nitroglycerin paste to the left foot. There were no surgical options at this time. She might need to have a repeat angiogram. Continue as per Interventional Radiology and aggressive care. We will check her labs. Rick Chisholm DO [email or web address]
--- NOTE | 2018-06-30 14:28 | CP.PCM.PN ---
Subjective - Date & Time of Evaluation Date of Evaluation: 06/30/18 Time of Evaluation: 10:20 - Subjective Subjective: Afebrile, not in distress, no increase in pain in the left foot but still has discomfort. Objective - Vital Signs/Intake and Output Vital Signs (last 24 hours): Temp Pulse Resp BP Pulse Ox 98.1 F 96 H 18 141/70 95 06/28/18 16:00 06/29/18 09:52 06/28/18 16:00 06/29/18 09:52 06/28/18 16:00 - Medications Medications: Current Medications Amlodipine Besylate (Norvasc) 5 mg PO DAILY [facility]; Protocol Last Admin: 06/29/18 09:52 Dose: 5 mg Apixaban (Eliquis) 2.5 mg PO BID [facility]; Protocol Last Admin: 06/29/18 10:05 Dose: 2.5 mg Atorvastatin Calcium (Lipitor) 40 mg PO DIN [facility]; Protocol Last Admin: 06/28/18 18:33 Dose: Not Given Cyanocobalamin (Vitamin B12 1000 Mcg Tab) 1,000 mcg PO DAILY [facility]; Protocol Last Admin: 06/29/18 09:53 Dose: 1,000 mcg Ferrous Gluconate (Fergon) 324 mg PO TID [facility]; Protocol Last Admin: 06/29/18 10:05 Dose: 324 mg Insulin Human Regular (Humulin R Med) 0 units SC ACHS [facility]; Protocol Last Admin: 06/29/18 12:11 Dose: Not Given Losartan Potassium (Cozaar) 100 mg PO DAILY [facility]; Protocol Last Admin: 06/29/18 09:53 Dose: 100 mg Metoprolol Tartrate (Lopressor) 25 mg PO 0800,1800 [facility]; Protocol Last Admin: 06/29/18 08:48 Dose: 25 mg Morphine Sulfate (Morphine) 1 mg IVP Q3H PRN; Protocol PRN Reason: Pain, severe (8-10) Last Admin: 06/28/18 12:10 Dose: 1 mg Multi-Ingredient Cream (Hydrocerin Cream) 0 ea TOP BID [facility]; Protocol Last Admin: 06/29/18 09:54 Dose: 1 applic Ondansetron HCl (Zofran Inj) 4 mg IVP Q6H PRN; Protocol PRN Reason: Nausea/Vomiting Pantoprazole Sodium (Protonix Ec Tab) 40 mg PO 0600 [facility]; Protocol Last Admin: 06/29/18 05:36 Dose: 40 mg Prasugrel (Effient) 10 mg PO DAILY [facility]; Protocol Last Admin: 06/29/18 09:52 Dose: 10 mg Sitagliptin Phosphate (Januvia) 50 mg PO DAILY [facility]; Protocol Last Admin: 06/29/18 09:53 Dose: 50 mg Vitamin B Complex/Vit C/Folic Acid (Nephro-Maribel) 1 tab PO 0800 [facility]; Protocol Last Admin: 06/29/18 08:48 Dose: 1 tab Zolpidem Tartrate (Ambien) 5 mg PO HS [facility]; Protocol Last Admin: 06/29/18 05:35 Dose: Not Given - Labs Labs: 06/29/18 06:00 06/29/18 06:00 - Constitutional Appears: Chronically Ill - Head Exam Head Exam: NORMAL INSPECTION - Respiratory Exam Respiratory Exam: Decreased Breath Sounds - Cardiovascular Exam Cardiovascular Exam: +S1, +S2 - GI/Abdominal Exam GI & Abdominal Exam: Soft. absent: Tenderness Assessment and Plan - Assessment and Plan (Free Text) Plan: Assessment S/P treatment with antibiotics of left foot cellulitis S/P left lower extremity angioplasty DVT chronic CHF CAD S/P PCI Plan continue to monitor off antibiotics since she is at risk for hospital-acquired infections discussed with Dr. Chisholm
[2018-07-01] MEDS: Pantoprazole 40 mg EC Tab PO SCH (05:33)
[2018-07-01] MEDS: Nitroglycerin 2% Ointment Foilpak UD TOP SCH ×3 (05:33→17:26)
[2018-07-01] MEDS: Insulin Reg-MEDIUM-Coverage SC SCH ×3 (06:40→16:52)
[2018-07-01] MEDS: Multivitamin Vitamin B Complex (Nephro-Vite) Tab PO SCH (08:13)
[2018-07-01 10:29] LABS: HEMOGLOBIN 11.3 g/dL (12.0-16.0); MEAN CELL VOLUME 81.2 fl (80.0-105.0); MEAN CORPUSCULAR HEMOGLOBIN 26.9 pg (25.0-35.0); MEAN CORPUSCULAR HGB CONC 33.1 g/dl (31.0-37.0); MEAN PLATELET VOLUME 9.4 fl (7.0-11.0); RBC 4.2 10^6/uL (3.5-6.1); RED CELL DISTRIBUTION WIDTH 14.4 % (11.5-14.5); WHITE BLOOD COUNT 10.1 10^3/uL (4.5-11.0)
[2018-07-01] MEDS: Hydrocerin(120 gm) TOP SCH ×2 (10:29→17:30)
[2018-07-01 10:46] LABS: ALB/GLOB RATIO 0.9 (1.1-1.8); ALBUMIN 3.3 g/dL (3.0-4.8); ALT/SGPT 24 U/L (7-56); AST/SGOT 25 U/L (14-36); BLOOD UREA NITROGEN 16 mg/dL (7-21); CALCIUM 8.8 mg/dL (8.4-10.5); GFR NON-AFRICAN AMERICAN > 60
--- NOTE | 2018-07-01 12:19 | CP.PCM.PN ---
Subjective - Date & Time of Evaluation Date of Evaluation: 07/01/18 Time of Evaluation: 12:11 - Subjective Subjective: Podiatry progress note for Dr. Mcintosh 72 yo female patient seen and evaluated at bedside in TCU for left foot with vascular insufficiency, unstageable ulcer to left heel. Patient was resting in bed. Patient states she is still in pain but less than yesterday. She states that the pain is more when her foot is touched. She denies any other pedal complaint at this time. She denies any overnight N/V/F/C/SOB/CP today. Objective - Vital Signs/Intake and Output Vital Signs (last 24 hours): Temp Pulse Resp BP Pulse Ox 98.1 F 78 20 151/81 H 95 07/01/18 10:00 07/01/18 10:00 07/01/18 10:00 07/01/18 10:26 07/01/18 10:00 Intake and Output: 07/01/18 07/01/18 06:59 18:59 Intake Total 290 Balance 290 - Medications Medications: Current Medications Amlodipine Besylate (Norvasc) 5 mg PO DAILY [facility]; Protocol Last Admin: 07/01/18 10:26 Dose: 5 mg Apixaban (Eliquis) 2.5 mg PO BID [facility]; Protocol Last Admin: 06/29/18 17:39 Dose: 2.5 mg Atorvastatin Calcium (Lipitor) 40 mg PO DIN [facility]; Protocol Last Admin: 06/30/18 17:40 Dose: 40 mg Cyanocobalamin (Vitamin B12 1000 Mcg Tab) 1,000 mcg PO DAILY [facility]; Protocol Last Admin: 07/01/18 10:26 Dose: 1,000 mcg Ferrous Gluconate (Fergon) 324 mg PO TID [facility]; Protocol Last Admin: 07/01/18 10:25 Dose: 324 mg Heparin Sodium/Sodium Chloride (Heparin 91044 Units/250ml 1/2 Normal Saline) 25,000 units in 250 mls @ 13.308 mls/hr IV .[id number] PRN; Protocol PRN Reason: ADJUST RATE PER PROTOCOL Last Titration: 07/01/18 04:27 Dose: 9.22 units/kg/hr, 6.817 mls/hr Insulin Human Regular (Humulin R Med) 0 units SC ACHS [facility]; Protocol Last Admin: 07/01/18 11:46 Dose: Not Given Losartan Potassium (Cozaar) 100 mg PO DAILY [facility]; Protocol Last Admin: 07/01/18 10:25 Dose: 100 mg Metoprolol Tartrate (Lopressor) 25 mg PO 0800,1800 [facility]; Protocol Last Admin: 07/01/18 08:12 Dose: 25 mg Morphine Sulfate (Morphine) 1 mg IVP Q3H PRN; Protocol PRN Reason: Pain, severe (8-10) Last Admin: 06/30/18 09:56 Dose: 1 mg Multi-Ingredient Cream (Hydrocerin Cream) 0 ea TOP BID [facility]; Protocol Last Admin: 07/01/18 10:29 Dose: 1 applic Nitroglycerin (Nitro-Bid 2% Oint) 2 ea TOP 0000,0600,1200,1800 [facility]; Protocol Last Admin: 07/01/18 05:33 Dose: 2 ea Ondansetron HCl (Zofran Inj) 4 mg IVP Q6H PRN; Protocol PRN Reason: Nausea/Vomiting Pantoprazole Sodium (Protonix Ec Tab) 40 mg PO 0600 [facility]; Protocol Last Admin: 07/01/18 05:33 Dose: 40 mg Prasugrel (Effient) 10 mg PO DAILY [facility]; Protocol Last Admin: 07/01/18 10:25 Dose: 10 mg Sitagliptin Phosphate (Januvia) 50 mg PO DAILY [facility]; Protocol Last Admin: 07/01/18 10:25 Dose: 50 mg Vitamin B Complex/Vit C/Folic Acid (Nephro-Maribel) 1 tab PO 0800 [facility]; Protocol Last Admin: 07/01/18 08:13 Dose: 1 tab Zolpidem Tartrate (Ambien) 5 mg PO HS [facility]; Protocol Last Admin: 06/30/18 21:37 Dose: 5 mg - Labs Labs: 07/01/18 10:20 07/01/18 10:20 PT 17.1 SECONDS (9.4-12.5) H 06/30/18 04:05 INR 1.49 06/30/18 04:05 APTT 54.4 Seconds (25.1-36.5) H 07/01/18 10:20 - Constitutional Appears: Non-toxic - Head Exam Head Exam: ATRAUMATIC, NORMOCEPHALIC - Extremities Exam Additional comments: Bilateral lower extremity exam: Vascular: DP/PT nonpalpable B/L. Temperature gradient warm to cool on R, warm to cold on L. Cap refill delayed > 3 secs to all digits, no edema noted. Pinpoint erythematous lesions possibly indicative of ischemic changes noted on the dorsal aspect of the left foot. pale discoloration noted to the left foot Neuro: protective sensation grossly intact Derm: no IDM, no open lesions, xerosis and peeling of skin noted B/L, L>R. Deep tissue injury to the heel on the left - scab present. Purple discloration noted to the second and third digits on the L side. No clinical signs of infection. MSK: moderate pain on palpation to the left foot. - Neurological Exam Neurological Exam: Alert, Awake, Oriented x3 - Psychiatric Exam Psychiatric exam: Normal Affect, Normal Mood Assessment and Plan - Assessment and Plan (Free Text) Assessment: 72 y/o female seen at bedside for left foot with vascular insufficiency, u nstageable ulcer to left heel Plan: Patient seen and evaluated at the bedside Plan discussed with attending Dr. Mcintosh Labs and vitals reviewed - afebrile, absent leukocytosis No dressings applied, open to air Dr. Kirk called regarding ischemic foot (06/30), temperature gradient reveals cold digits and distal foot - recs appreciated, f/u No podiatric intervention planned at this time Podiatry will continue to follow up the patient while in house
--- NOTE | 2018-07-01 12:25 | CP.PCM.PN ---
Subjective - Date & Time of Evaluation Date of Evaluation: 07/01/18 Time of Evaluation: 11:00 - Subjective Subjective: No increased pain in the left foot, no discharge or bleeding, no fevers. Objective - Vital Signs/Intake and Output Vital Signs (last 24 hours): Temp Pulse Resp BP Pulse Ox 97.4 F L 89 18 138/72 96 06/30/18 10:12 06/30/18 10:12 06/30/18 06:00 06/30/18 10:12 06/30/18 10:12 Intake and Output: 06/30/18 06/30/18 06:59 18:59 Intake Total 670 Balance 670 - Medications Medications: Current Medications Amlodipine Besylate (Norvasc) 5 mg PO DAILY [facility]; Protocol Last Admin: 06/30/18 09:50 Dose: 5 mg Apixaban (Eliquis) 2.5 mg PO BID [facility]; Protocol Last Admin: 06/29/18 17:39 Dose: 2.5 mg Atorvastatin Calcium (Lipitor) 40 mg PO DIN [facility]; Protocol Last Admin: 06/29/18 17:40 Dose: 40 mg Cyanocobalamin (Vitamin B12 1000 Mcg Tab) 1,000 mcg PO DAILY [facility]; Protocol Last Admin: 06/30/18 09:50 Dose: 1,000 mcg Ferrous Gluconate (Fergon) 324 mg PO TID [facility]; Protocol Last Admin: 06/30/18 14:05 Dose: 324 mg Heparin Sodium/Sodium Chloride (Heparin 52748 Units/250ml 1/2 Normal Saline) 25,000 units in 250 mls @ 13.308 mls/hr IV .[id number] PRN; Protocol PRN Reason: ADJUST RATE PER PROTOCOL Last Admin: 06/30/18 08:37 Dose: 15.28 units/kg/hr, 11.3 mls/hr Insulin Human Regular (Humulin R Med) 0 units SC ACHS [facility]; Protocol Last Admin: 06/30/18 12:26 Dose: 1 unit Losartan Potassium (Cozaar) 100 mg PO DAILY [facility]; Protocol Last Admin: 06/30/18 09:49 Dose: 100 mg Metoprolol Tartrate (Lopressor) 25 mg PO 0800,1800 [facility]; Protocol Last Admin: 06/30/18 08:10 Dose: 25 mg Morphine Sulfate (Morphine) 1 mg IVP Q3H PRN; Protocol PRN Reason: Pain, severe (8-10) Last Admin: 06/30/18 09:56 Dose: 1 mg Multi-Ingredient Cream (Hydrocerin Cream) 0 ea TOP BID [facility]; Protocol Last Admin: 06/30/18 09:49 Dose: 1 applic Nitroglycerin (Nitro-Bid 2% Oint) 2 ea TOP 0000,0600,1200,1800 [facility]; Protocol Last Admin: 06/30/18 12:28 Dose: 2 ea Ondansetron HCl (Zofran Inj) 4 mg IVP Q6H PRN; Protocol PRN Reason: Nausea/Vomiting Pantoprazole Sodium (Protonix Ec Tab) 40 mg PO 0600 [facility]; Protocol Last Admin: 06/30/18 05:47 Dose: 40 mg Prasugrel (Effient) 10 mg PO DAILY [facility]; Protocol Last Admin: 06/30/18 09:49 Dose: 10 mg Sitagliptin Phosphate (Januvia) 50 mg PO DAILY [facility]; Protocol Last Admin: 06/30/18 09:50 Dose: 50 mg Vitamin B Complex/Vit C/Folic Acid (Nephro-Maribel) 1 tab PO 0800 [facility]; Protocol Last Admin: 06/30/18 08:10 Dose: 1 tab Zolpidem Tartrate (Ambien) 5 mg PO HS [facility]; Protocol Last Admin: 06/29/18 22:11 Dose: 5 mg - Labs Labs: 06/30/18 05:30 06/30/18 04:05 PT 17.1 SECONDS (9.4-12.5) H 06/30/18 04:05 INR 1.49 06/30/18 04:05 APTT 114.5 Seconds (25.1-36.5) H* 06/30/18 13:10 - Constitutional Appears: Chronically Ill - Head Exam Head Exam: NORMAL INSPECTION - Respiratory Exam Respiratory Exam: Decreased Breath Sounds - Cardiovascular Exam Cardiovascular Exam: +S1, +S2 - GI/Abdominal Exam GI & Abdominal Exam: Soft. absent: Tenderness - Extremities Exam Additional comments: left foot with areas of discoloration but no increased warmth Assessment and Plan - Assessment and Plan (Free Text) Plan: Assessment S/P treatment with antibiotics of left foot cellulitis S/P left lower extremity angioplasty DVT chronic CHF CAD S/P PCI Plan continue to monitor off antibiotics since she is at risk for healthcare- associated infections discussed with Dr. Chisholm previously
[2018-07-01] MEDS: Morphine 2 mg/ml ISec IVP PRN (12:44)
--- NOTE | 2018-07-01 14:59 | PN ---
DATE: 07/01/2018 SUBJECTIVE: She is having a very rough time in the Transitional Care Unit. She is having a left leg issue. She was stented by Dr. Lei Kirk interventional radiologist and has 3 stents put in the left leg. Now, a left foot is very painful. She is on nitroglycerin cream to the foot, also heparin drip, Ambien, Cozaar, Effient, Eliquis, iron, Hydrocerin cream, Januvia, Lipitor, Lopressor, morphine for pain, Nephro-Maribel, Nitro-Bid, Norvasc, Protonix, vitamin B12, Zofran and as I said heparin drip. She is in a little bit of trouble right now, we will try and save the circulation of the left foot hoping to prevent any surgeries like a transmet or BKA. PHYSICAL EXAMINATION: VITAL SIGNS: She has 98.1 temperature, 78 pulse, 151/81 blood pressure, 20 respiratory rate, 95% O2 sat on room air. HEENT: Head is atraumatic, normocephalic. HEART: Regular rate. LUNGS: Clear to auscultation. ABDOMEN: Soft. EXTREMITIES: No edema of the left foot. The color does not look that great. She has 3 stents in the legs. She also while she was here had 2 cardiac caths, stents placed in the heart. We are trying to save this leg. She is being seen by Infectious Disease, interventional radiologist, Cardiology, Renal, Podiatry. The whole team is on trying to the best we can to save her foot. We will also get a physical therapy to help her with walking. Continue with aggressive treatment and care. She has poor prognosis at this point in time. She has poor circulation of the left foot. Rick Chisholm DO
[2018-07-02] MEDS: Insulin Reg-MEDIUM-Coverage SC SCH ×4 (03:12→17:48)
[2018-07-02] MEDS: Pantoprazole 40 mg EC Tab PO SCH (05:50)
[2018-07-02] MEDS: Nitroglycerin 2% Ointment Foilpak UD TOP SCH ×4 (05:50→17:50)
[2018-07-02] MEDS: Heparin25000 units/250ml 1/2NS 25,000 UNITS/250 ML BAG IV PRN (06:12)
[2018-07-02 07:02] LABS: HEMOGLOBIN 11.8 g/dL (12.0-16.0); MEAN CELL VOLUME 81.1 fl (80.0-105.0); MEAN CORPUSCULAR HEMOGLOBIN 26.9 pg (25.0-35.0); MEAN CORPUSCULAR HGB CONC 33.1 g/dl (31.0-37.0); MEAN PLATELET VOLUME 9.5 fl (7.0-11.0); RBC 4.39 10^6/uL (3.5-6.1); RED CELL DISTRIBUTION WIDTH 14.4 % (11.5-14.5); WHITE BLOOD COUNT 10.7 10^3/uL (4.5-11.0)
[2018-07-02 07:06] LABS: ALB/GLOB RATIO 0.9 (1.1-1.8); ALBUMIN 3.4 g/dL (3.0-4.8); ALT/SGPT 26 U/L (7-56); AST/SGOT 27 U/L (14-36); BLOOD UREA NITROGEN 17 mg/dL (7-21); GFR NON-AFRICAN AMERICAN > 60
[2018-07-02] MEDS: Multivitamin Vitamin B Complex (Nephro-Vite) Tab PO SCH (08:41)
[2018-07-02] MEDS: Hydrocerin(120 gm) TOP SCH ×2 (10:52→17:48)
--- NOTE | 2018-07-02 11:18 | CP.PCM.PN ---
Subjective - Date & Time of Evaluation Date of Evaluation: 07/02/18 Time of Evaluation: 10:40 - Subjective Subjective: Still having pain in her left foot but a little less, no fevers, not in distress. Objective - Vital Signs/Intake and Output Vital Signs (last 24 hours): Temp Pulse Resp BP Pulse Ox 98.1 F 78 20 151/81 H 95 07/01/18 10:00 07/01/18 10:00 07/01/18 10:00 07/01/18 10:26 07/01/18 10:00 Intake and Output: 07/01/18 07/01/18 06:59 18:59 Intake Total 290 Balance 290 - Medications Medications: Current Medications Amlodipine Besylate (Norvasc) 5 mg PO DAILY [facility]; Protocol Last Admin: 07/01/18 10:26 Dose: 5 mg Apixaban (Eliquis) 2.5 mg PO BID [facility]; Protocol Last Admin: 06/29/18 17:39 Dose: 2.5 mg Atorvastatin Calcium (Lipitor) 40 mg PO DIN [facility]; Protocol Last Admin: 06/30/18 17:40 Dose: 40 mg Cyanocobalamin (Vitamin B12 1000 Mcg Tab) 1,000 mcg PO DAILY [facility]; Protocol Last Admin: 07/01/18 10:26 Dose: 1,000 mcg Ferrous Gluconate (Fergon) 324 mg PO TID [facility]; Protocol Last Admin: 07/01/18 10:25 Dose: 324 mg Heparin Sodium/Sodium Chloride (Heparin 82638 Units/250ml 1/2 Normal Saline) 25,000 units in 250 mls @ 13.308 mls/hr IV .[id number] PRN; Protocol PRN Reason: ADJUST RATE PER PROTOCOL Last Titration: 07/01/18 04:27 Dose: 9.22 units/kg/hr, 6.817 mls/hr Insulin Human Regular (Humulin R Med) 0 units SC ACHS [facility]; Protocol Last Admin: 07/01/18 11:46 Dose: Not Given Losartan Potassium (Cozaar) 100 mg PO DAILY [facility]; Protocol Last Admin: 07/01/18 10:25 Dose: 100 mg Metoprolol Tartrate (Lopressor) 25 mg PO 0800,1800 [facility]; Protocol Last Admin: 07/01/18 08:12 Dose: 25 mg Morphine Sulfate (Morphine) 1 mg IVP Q3H PRN; Protocol PRN Reason: Pain, severe (8-10) Last Admin: 06/30/18 09:56 Dose: 1 mg Multi-Ingredient Cream (Hydrocerin Cream) 0 ea TOP BID [facility]; Protocol Last Admin: 07/01/18 10:29 Dose: 1 applic Nitroglycerin (Nitro-Bid 2% Oint) 2 ea TOP 0000,0600,1200,1800 [facility]; Protocol Last Admin: 07/01/18 12:14 Dose: 2 ea Ondansetron HCl (Zofran Inj) 4 mg IVP Q6H PRN; Protocol PRN Reason: Nausea/Vomiting Pantoprazole Sodium (Protonix Ec Tab) 40 mg PO 0600 [facility]; Protocol Last Admin: 07/01/18 05:33 Dose: 40 mg Prasugrel (Effient) 10 mg PO DAILY [facility]; Protocol Last Admin: 07/01/18 10:25 Dose: 10 mg Sitagliptin Phosphate (Januvia) 50 mg PO DAILY [facility]; Protocol Last Admin: 07/01/18 10:25 Dose: 50 mg Vitamin B Complex/Vit C/Folic Acid (Nephro-Maribel) 1 tab PO 0800 [facility]; Protocol Last Admin: 07/01/18 08:13 Dose: 1 tab Zolpidem Tartrate (Ambien) 5 mg PO HS [facility]; Protocol Last Admin: 06/30/18 21:37 Dose: 5 mg - Labs Labs: 07/01/18 10:20 07/01/18 10:20 PT 17.1 SECONDS (9.4-12.5) H 06/30/18 04:05 INR 1.49 06/30/18 04:05 APTT 54.4 Seconds (25.1-36.5) H 07/01/18 10:20 - Constitutional Appears: Chronically Ill - Head Exam Head Exam: NORMAL INSPECTION - Respiratory Exam Respiratory Exam: Decreased Breath Sounds - Cardiovascular Exam Cardiovascular Exam: +S1, +S2 - GI/Abdominal Exam GI & Abdominal Exam: Soft. absent: Tenderness - Extremities Exam Additional comments: left foot without erythema Assessment and Plan - Assessment and Plan (Free Text) Plan: Assessment S/P treatment with antibiotics of left foot cellulitis S/P left lower extremity angioplasty DVT chronic CHF CAD S/P PCI Plan continue to monitor off antibiotics since she is at risk for nosocomial infections discussed with Dr. Chisholm follow up further plans of Podiatry , surgery
--- NOTE | 2018-07-02 11:52 | PN ---
DATE: 07/02/2018 SUBJECTIVE: I saw her resting in the Transitional Care Unit. She is very upset with the roommate she has. The family is very loud and she cannot get any rest and she is asking to change her room. Also, she wants tramadol, not morphine for the pain. I gave her some tramadol. She is on Ambien, Cozaar, Effient, Fergon, heparin IV, insulin, nitroglycerin cream, Januvia, Lipitor, Lopressor, morphine which she does not like. She wants to try tramadol, Nephro-Maribel, Nitro-Bid ointment to the left foot, Norvasc, Protonix, Ultram, vitamin B12 and Zofran. She is also on heparin IV. We are trying to get circulation back into the left foot. It is hurting her, painful to her when she moves it. She had a procedure done with interventional radiologist, Dr. Lei Kirk. I put three stents in the left leg hoping to open up the veins and the arteries. PHYSICAL EXAMINATION: VITAL SIGNS: She has 98.5 temperature, 95 pulse, 150/71 blood pressure, 20 respiratory rate, 96% O2 sat on room air. HEENT: Head is atraumatic, normocephalic. HEART: Regular rate. LUNGS: Decreased breath sounds, but clear. ABDOMEN: Soft. EXTREMITIES: Left leg is painful. LABORATORY DATA: She has a 10.7 white count, 11.8 hemoglobin, 35.6 hematocrit with 315 platelets. She has a 138 sodium, potassium 3.6, BUN 70, creatinine 0.9, GFR is greater than 60, sugar is 142, calcium is 9, total bili is 0.7, AST is 27, ALT is 26, alkaline phosphatase 102, total protein 7.1. She is being seen by Infectious Disease and Podiatry. We will continue our aggressive treatment. She cannot do physical therapy due to the pain on the left foot. She has pain medication being adjusted. She is looking for tramadol. I will help her with that. She has morphine that the case for breakthrough. We will see with interventional radiologist, Dr. Lei Kirk who says tomorrow, but the circulation what else we can do to help her. I believe we are trying to avoid transmetatarsal or BKA at the left leg. Rick Chisholm DO [facility] # [id number]
--- NOTE | 2018-07-02 12:18 | CP.PCM.PN ---
Subjective - Date & Time of Evaluation Date of Evaluation: 07/02/18 Time of Evaluation: 12:14 - Subjective Subjective: Podiatry progress note for Dr. Mcintosh 72 yo female patient seen and evaluated at bedside in TCU for left foot with vascular insufficiency, unstageable ulcer to left heel and L 3rd digit gangrenous changes. Patient was resting in bed. Patient states she is still in pain and her pain today is 9/10 on VAS scale. Patient states that her left foot color looks better today despite the increasing pain. She states that the pain is more when her foot is touched. She denies any other pedal complaint at this time. She denies any overnight N/V/F/C/SOB/CP today. Objective - Vital Signs/Intake and Output Vital Signs (last 24 hours): Temp Pulse Resp BP Pulse Ox 98.5 F 95 H 20 150/71 96 07/02/18 10:00 07/02/18 10:00 07/02/18 10:00 07/02/18 10:46 07/02/18 10:00 Intake and Output: 07/02/18 07/02/18 06:59 18:59 Intake Total 210 Balance 210 - Medications Medications: Current Medications Amlodipine Besylate (Norvasc) 5 mg PO DAILY [facility]; Protocol Last Admin: 07/02/18 10:46 Dose: 5 mg Apixaban (Eliquis) 2.5 mg PO BID [facility]; Protocol Last Admin: 06/29/18 17:39 Dose: 2.5 mg Atorvastatin Calcium (Lipitor) 40 mg PO DIN [facility]; Protocol Last Admin: 07/01/18 17:25 Dose: 40 mg Cyanocobalamin (Vitamin B12 1000 Mcg Tab) 1,000 mcg PO DAILY [facility]; Protocol Last Admin: 07/02/18 10:47 Dose: 1,000 mcg Ferrous Gluconate (Fergon) 324 mg PO TID [facility]; Protocol Last Admin: 07/02/18 10:46 Dose: 324 mg Heparin Sodium/Sodium Chloride (Heparin 46323 Units/250ml 1/2 Normal Saline) 25,000 units in 250 mls @ 13.308 mls/hr IV .[id number] PRN; Protocol PRN Reason: ADJUST RATE PER PROTOCOL Last Admin: 07/02/18 06:12 Dose: 9.22 units/kg/hr, 6.817 mls/hr Insulin Human Regular (Humulin R Med) 0 units SC ACHS [facility]; Protocol Last Admin: 07/02/18 07:42 Dose: Not Given Losartan Potassium (Cozaar) 100 mg PO DAILY [facility]; Protocol Last Admin: 07/02/18 10:45 Dose: 100 mg Metoprolol Tartrate (Lopressor) 25 mg PO 0800,1800 [facility]; Protocol Last Admin: 07/02/18 08:40 Dose: 25 mg Morphine Sulfate (Morphine) 1 mg IVP Q3H PRN; Protocol PRN Reason: Pain, severe (8-10) Last Admin: 07/01/18 12:44 Dose: 1 mg Multi-Ingredient Cream (Hydrocerin Cream) 0 ea TOP BID [facility]; Protocol Last Admin: 07/02/18 10:52 Dose: 1 applic Nitroglycerin (Nitro-Bid 2% Oint) 2 ea TOP 0000,0600,1200,1800 [facility]; Protocol Last Admin: 07/02/18 05:50 Dose: 2 ea Ondansetron HCl (Zofran Inj) 4 mg IVP Q6H PRN; Protocol PRN Reason: Nausea/Vomiting Pantoprazole Sodium (Protonix Ec Tab) 40 mg PO 0600 [facility]; Protocol Last Admin: 07/02/18 05:50 Dose: 40 mg Prasugrel (Effient) 10 mg PO DAILY [facility]; Protocol Last Admin: 07/02/18 10:45 Dose: 10 mg Sitagliptin Phosphate (Januvia) 50 mg PO DAILY [facility]; Protocol Last Admin: 07/02/18 10:46 Dose: 50 mg Tramadol HCl (Ultram) 50 mg PO Q8H PRN PRN Reason: Pain, severe (8-10) Last Admin: 07/02/18 10:50 Dose: 50 mg Vitamin B Complex/Vit C/Folic Acid (Nephro-Maribel) 1 tab PO 0800 [facility]; Protocol Last Admin: 07/02/18 08:41 Dose: 1 tab Zolpidem Tartrate (Ambien) 5 mg PO HS [facility]; Protocol Last Admin: 07/01/18 21:28 Dose: 5 mg - Labs Labs: 07/02/18 06:00 07/02/18 06:00 PT 17.1 SECONDS (9.4-12.5) H 06/30/18 04:05 INR 1.49 06/30/18 04:05 APTT 55.2 Seconds (25.1-36.5) H 07/02/18 06:00 - Constitutional Appears: Well - Head Exam Head Exam: ATRAUMATIC, NORMOCEPHALIC - Extremities Exam Additional comments: Bilateral lower extremity exam: Vascular: DP/PT nonpalpable B/L. Temperature gradient warm to cool on R, warm to cold on L. Cap refill delayed > 3 secs to all digits, no edema noted. Pinpoint erythematous mottled lesions possibly indicative of ischemic changes noted on the dorsal aspect of the left foot. pale discoloration noted to the left foot but less than yesterday Neuro: protective sensation grossly intact Derm: no IDM, no open lesions, xerosis and peeling of skin noted B/L, L>R. Deep tissue injury to the heel on the left - scab present. gangrenous changes noted to the third digits on the L side. 2nd L digit noted to have improved color than yesterday. No clinical signs of infection. MSK: moderate pain on palpation to the left foot. - Neurological Exam Neurological Exam: Alert, Awake, Oriented x3 - Psychiatric Exam Psychiatric exam: Normal Affect, Normal Mood Assessment and Plan - Assessment and Plan (Free Text) Assessment: 72 y/o female seen at bedside for left foot with vascular insufficiency, unstageable ulcer to left heel, L 3rd digit gangrenous changes Plan: Patient seen and evaluated at the bedside Plan discussed with attending Dr. Mcintosh Labs and vitals reviewed - afebrile, absent leukocytosis No dressings applied, open to air Dr. Kirk called regarding ischemic foot (06/30), temperature gradient reveals cold digits and distal foot - recs appreciated, f/u No podiatric intervention planned at this time Podiatry will continue to follow up the patient while in house
[2018-07-03] MEDS: Nitroglycerin 2% Ointment Foilpak UD TOP SCH ×4 (00:13→17:43)
[2018-07-03] MEDS: Insulin Reg-MEDIUM-Coverage SC SCH ×5 (05:40→21:22)
[2018-07-03] MEDS: Pantoprazole 40 mg EC Tab PO SCH (05:40)
[2018-07-03 07:26] LABS: HEMOGLOBIN 10.9 g/dL (12.0-16.0); MEAN CORPUSCULAR HEMOGLOBIN 26.6 pg (25.0-35.0); MEAN CORPUSCULAR HGB CONC 32.8 g/dl (31.0-37.0); MEAN PLATELET VOLUME 9.2 fl (7.0-11.0); RBC 4.1 10^6/uL (3.5-6.1); RED CELL DISTRIBUTION WIDTH 14.4 % (11.5-14.5); WHITE BLOOD COUNT 10.4 10^3/uL (4.5-11.0)
[2018-07-03] MEDS: Multivitamin Vitamin B Complex (Nephro-Vite) Tab PO SCH (08:24)
--- NOTE | 2018-07-03 09:19 | PN ---
DATE: 07/03/2018 SUBJECTIVE: She is in better mood this morning and feeling better this morning. She is now in a single room, which she thinks helped a lot. She also slept pretty well last night. She told me the left foot is feeling much better. MEDICATIONS: She is on Ambien, Cozaar, Effient, Fergon, heparin IV, insulin, Hydrocerin cream, Januvia, Lipitor, Lopressor, morphine as needed for pain, Nephro-Maribel, Nitro-Bid on the foot, Norvasc, Protonix, Ultram, vitamin B12 and Zofran. PHYSICAL EXAMINATION: VITAL SIGNS: She has a 98.5 temp, 86 pulse, 143/74 blood pressure, 20 respiratory rate and 96% O2 sat on room air. HEENT: Head is atraumatic, normocephalic. HEART: Regular rate. LUNGS: Decreased breath sounds, but clear. ABDOMEN: Soft, obese, nontender. EXTREMITIES: The left foot may be a little pinker than yesterday. She tells me that there is very little pain today, which is great. She is on heparin and nitroglycerin cream. LABORATORY DATA: She has a 10.4 white count, 10.9 hemoglobin, 33.2 hematocrit with 289 platelets. She has a 138 sodium, potassium 3.6, BUN 70, creatinine 0.9, GFR is greater than 60, sugar is 142, calcium 9, total bili is 0.7, AST is 27, ALT is 26, alk phos 102, total protein 7.1. ASSESSMENT AND PLAN: Hopefully, she will be seen by interventional radiologist today, also Podiatry and Infectious Disease. She had peripheral vascular disease with three stents placed in the left leg, also 2 cardiac catheterizations with stents placement. The next plan is physical therapy, walkig and hopefully she will continue to improve with circulation of the left foot. Rick Chisholm DO [facility]
[2018-07-03] MEDS: Hydrocerin(120 gm) TOP SCH ×2 (10:54→17:53)
--- NOTE | 2018-07-03 12:32 | CP.PCM.PN ---
Subjective - Date & Time of Evaluation Date of Evaluation: 07/03/18 Time of Evaluation: 12:29 - Subjective Subjective: Podiatry progress note for Dr. Mcintosh 72 yo female seen and evaluated at bedside with Dr. Mcintosh. States she is still in pain to her feet. She denies N/V/F/C/SOB/CP and had no acute events overnight. She has no other pedal complaints today and says she notices little improvement in the color in her toes. Objective - Vital Signs/Intake and Output Vital Signs (last 24 hours): Temp Pulse Resp BP Pulse Ox 98.5 F 87 20 137/65 96 07/02/18 16:00 07/03/18 10:56 07/02/18 16:00 07/03/18 10:56 07/02/18 16:00 Intake and Output: 07/03/18 07/03/18 06:59 18:59 Intake Total 420 Balance 420 - Medications Medications: Current Medications Amlodipine Besylate (Norvasc) 5 mg PO DAILY [facility]; Protocol Last Admin: 07/03/18 10:56 Dose: 5 mg Apixaban (Eliquis) 2.5 mg PO BID [facility]; Protocol Last Admin: 06/29/18 17:39 Dose: 2.5 mg Atorvastatin Calcium (Lipitor) 40 mg PO DIN [facility]; Protocol Last Admin: 07/02/18 17:49 Dose: 40 mg Cyanocobalamin (Vitamin B12 1000 Mcg Tab) 1,000 mcg PO DAILY [facility]; Protocol Last Admin: 07/03/18 10:56 Dose: 1,000 mcg Ferrous Gluconate (Fergon) 324 mg PO TID [facility]; Protocol Last Admin: 07/03/18 10:55 Dose: 324 mg Heparin Sodium/Sodium Chloride (Heparin 73974 Units/250ml 1/2 Normal Saline) 25,000 units in 250 mls @ 13.308 mls/hr IV .[id number] PRN; Protocol PRN Reason: ADJUST RATE PER PROTOCOL Last Titration: 07/03/18 08:25 Dose: 11.22 units/kg/hr, 8.296 mls/hr Insulin Human Regular (Humulin R Med) 0 units SC ACHS [facility]; Protocol Last Admin: 07/03/18 06:52 Dose: Not Given Losartan Potassium (Cozaar) 100 mg PO DAILY [facility]; Protocol Last Admin: 07/03/18 10:55 Dose: 100 mg Metoprolol Tartrate (Lopressor) 25 mg PO 0800,1800 [facility]; Protocol Last Admin: 07/03/18 08:24 Dose: 25 mg Morphine Sulfate (Morphine) 1 mg IVP Q3H PRN; Protocol PRN Reason: Pain, severe (8-10) Last Admin: 07/01/18 12:44 Dose: 1 mg Multi-Ingredient Cream (Hydrocerin Cream) 0 ea TOP BID [facility]; Protocol Last Admin: 07/03/18 10:54 Dose: 1 applic Nitroglycerin (Nitro-Bid 2% Oint) 2 ea TOP 0000,0600,1200,1800 [facility]; Protocol Last Admin: 07/03/18 05:40 Dose: 2 ea Ondansetron HCl (Zofran Inj) 4 mg IVP Q6H PRN; Protocol PRN Reason: Nausea/Vomiting Pantoprazole Sodium (Protonix Ec Tab) 40 mg PO 0600 [facility]; Protocol Last Admin: 07/03/18 05:40 Dose: 40 mg Potassium Chloride (K-Dur 20 Meq Er Tab) 20 meq PO 0800 [facility] Stop: 07/08/18 12:01 Prasugrel (Effient) 10 mg PO DAILY [facility]; Protocol Last Admin: 07/03/18 10:55 Dose: 10 mg Sitagliptin Phosphate (Januvia) 50 mg PO DAILY [facility]; Protocol Last Admin: 07/03/18 10:55 Dose: 50 mg Tramadol HCl (Ultram) 50 mg PO Q8H PRN PRN Reason: Pain, severe (8-10) Last Admin: 07/02/18 17:51 Dose: 50 mg Vitamin B Complex/Vit C/Folic Acid (Nephro-Maribel) 1 tab PO 0800 [facility]; Protocol Last Admin: 07/03/18 08:24 Dose: 1 tab Zolpidem Tartrate (Ambien) 5 mg PO HS [facility]; Protocol Last Admin: 07/02/18 21:12 Dose: 5 mg - Labs Labs: 07/03/18 07:00 07/02/18 06:00 PT 17.1 SECONDS (9.4-12.5) H 06/30/18 04:05 INR 1.49 06/30/18 04:05 APTT 36.8 Seconds (25.1-36.5) H 07/03/18 07:00 - Constitutional Appears: Well, Non-toxic, No Acute Distress - Head Exam Head Exam: ATRAUMATIC, NORMOCEPHALIC - Extremities Exam Additional comments: Bilateral lower extremity exam: Vascular: DP/PT nonpalpable B/L. Temperature gradient warm to cool on R, warm to cold on L. Cap refill delayed > 3 secs to all digits, no edema noted. Pinpoint erythematous mottled lesions possibly indicative of ischemic changes noted on the dorsal aspect of the left foot. pale discoloration noted to the left foot but less than yesterday Neuro: protective sensation grossly intact Derm: no IDM, no open lesions, xerosis and peeling of skin noted B/L, L>R. Deep tissue injury to the heel on the left - scab present. gangrenous changes noted to the third digits on the L side. 2nd L digit noted to have improved color than yesterday. No clinical signs of infection. MSK: moderate pain on palpation to the left foot. - Neurological Exam Neurological Exam: Alert, Awake, Oriented x3 - Psychiatric Exam Psychiatric exam: Normal Affect, Normal Mood Assessment and Plan - Assessment and Plan (Free Text) Assessment: 72 y/o female seen at bedside for left foot with vascular insufficiency, unstageable ulcer to left heel, L 3rd digit gangrenous changes Plan: Patient seen and evaluated at the bedside with Dr. Mcintosh Labs and vitals reviewed - afebrile, absent leukocytosis No dressings applied, open to air Dr. Kirk called regarding ischemic foot (06/30), temperature gradient reveals cold digits and distal foot - recs appreciated, f/u No podiatric intervention planned at this time Podiatry will continue to follow up the patient while in house
[2018-07-03] MEDS: Potassium Chloride 20 mEq ER Tab PO SCH (13:17)
--- NOTE | 2018-07-03 14:17 | PN ---
DATE: 07/03/2018 SUBJECTIVE: This is a 72-year-old female seen on Transitional Care for continued monitoring of an ischemic left foot. The patient is seen at bedside, her foot is on the pillow and she is receiving heparin from Dr. Kirk to help save the left foot. The patient states that the pain is improved, but she still has a lot of pain and she could not walk the last 2 days because of the pain. PHYSICAL EXAMINATION: VITAL SIGNS: The patient's vitals are reviewed. Her temperature is 98.5, pulse is 86, blood pressure is 144/86, and oxygen saturation was 96%. LABORATORY DATA: The patient's labs are reviewed. White blood cell count is 10.4 and H and H 10.9/32.2. Chemistry results are reviewed, glucose is at 142. The rest was grossly within normal limits. The patient has no new microbiology reports. The patient's foot was observed on the pillow, she has paste to the plantar aspect of the foot. The patient is receiving heparin as noted above to help open any of the vessels in her foot which may have received emboli during her angioplasty procedure. The foot looks slightly improved since I saw her on . It is no longer extremely pallor, however it is nonblanchable second, third toes are all presynaptic. The rest of the foot is still cold; although the color as noted above is improved. However, the patient is extremely tender with minimal palpation. The second and third toes have gangrene on the dorsal aspect of it and there is no signs of abscess or infection at this time. ASSESSMENT: Ischemic left foot. PLAN AND TREATMENT: I did discussed the case with Dr. Kirk on Tuesday. Apparently, she has a wide open posterior tibial vessel, however she has no dorsalis pedis vessel. At this time, a TMA is still very questionable and saving this foot. We will order surgical shoes to see if the cushion in the shoe will allow the person to walk. We will continue vascular intervention as per Dr. Kirk. Unfortunately, the patient is not likely a bypass candidate. The patient will be seen and monitored. Ute Mcintosh DPM
--- NOTE | 2018-07-03 15:07 | CP.PCM.PN ---
Subjective - Date & Time of Evaluation Date of Evaluation: 07/03/18 Time of Evaluation: 15:07 - Subjective Subjective: Nephrology Consultation Note: Assessment: Stable Acute Kidney Injury (N17.9) resolved iron def anemia, CHF, cellulitis CAD s/p stent and PVD 8 mm left non obs calculus hypokalemia Plan No acute need for renal replacement therapy at this time. Hypertension control with meds as ordered. Maintain hemodynamics stable. Avoid hypotension. Patient on losartan Monitor Input/Output, daily weights and renal function with basic metabolic panel continue with iron and MVI CAD/CHF management as per cardiology. resume low dose diuretics with KCL 20 meq/day, as tolerated by BP. PRBC as needed. supplement lytes as needed. ID following Dose meds/antibiotics for GFR >60. Glycemic control Further work up/management as per primary team Thanks for allowing me to participate in care of your patient. Will follow patient with you further prn basis. . Please call if any Qs Dr Cassius Hernández Office: [phone] Chief Complaint; leg pain Reason for consult: Acute Kidney Injury follow up HPI: Pt is a 72 F with hx of CHF, hypertension (years) presented with complaints of left foot cellulitis and found to have PVD s/p interevention and CAD s/p stent. also had BARTOLO with peaked cr 1.3. anemia. left 8 mm non obs calculus. pt now on TRCU and seen for BARTOLO follow up Denies OTC/herbal meds or NSAIDs No recent iodinated contrast exposure. No obvious episodes of low BP. ROS: Cardiovascular: No chest pain. Pulmonary: No shortness of breath Gastrointestinal: denies abdominal pain No nausea. No vomiting. Genitourinary: No pain while urinating. Denies blood in urine. All other negative except as mentioned in HPI. c/o leg pain Physical Examination: General Appearance: Comfortable, in no acute respiratory distress, co-operative . Vitals reviewed and noted as below Head; Atraumatic, normocephalic ENT: no ulcers no thrush. Tongue is midline. Oropharynx: no rash or ulcers. EYES: Pupils are equal, round and reactive to light accommodation. Eye muscles and extraocular movement intact. Sclera is anicteric. Neck; supple no lymphadenopathy, no thyromegaly or bruit Lungs: Normal respiratory rate/effort. Breath sounds bilateral equal and clear Heart: Normal rate. s1s2 normal. No rub or gallop. Extremities: trace edema. No varicose veins. left foot dressed. Neurological: Patient is alert, awake and oriented to person, place and time. No focal deficit. Strength bilateral appropriate and equal Skin: Warm and dry. Normal turgor. No rash. Palpitation: Normal elasticity for age Abdomen: Abdomen is soft. Bowel sounds +. There is no abdominal tenderness, no guarding/rigidity no organomegaly Psych: limited insight and normal affect/mood MSK: no joint tenderness or swelling. Digits and nails normal, no deformity : kidney or bladder not palpable Labs/imaging reviewed. Past medical history, past surgical history, family history, social history, allergy reviewed and noted as below Family hx: no hx of CKD. Rest non-contributory Objective - Vital Signs/Intake and Output Vital Signs (last 24 hours): Temp Pulse Resp BP Pulse Ox 98.5 F 87 20 137/65 96 07/02/18 16:00 07/03/18 10:56 07/02/18 16:00 07/03/18 10:56 07/02/18 16:00 Intake and Output: 07/03/18 07/03/18 06:59 18:59 Intake Total 520 Balance 520 - Medications Medications: Current Medications Amlodipine Besylate (Norvasc) 5 mg PO DAILY [facility]; Protocol Last Admin: 07/03/18 10:56 Dose: 5 mg Apixaban (Eliquis) 2.5 mg PO BID [facility]; Protocol Last Admin: 06/29/18 17:39 Dose: 2.5 mg Atorvastatin Calcium (Lipitor) 40 mg PO DIN [facility]; Protocol Last Admin: 07/02/18 17:49 Dose: 40 mg Cyanocobalamin (Vitamin B12 1000 Mcg Tab) 1,000 mcg PO DAILY [facility]; Protocol Last Admin: 07/03/18 10:56 Dose: 1,000 mcg Ferrous Gluconate (Fergon) 324 mg PO TID [facility]; Protocol Last Admin: 07/03/18 13:21 Dose: 324 mg Furosemide (Lasix) 20 mg PO DAILY [facility] Heparin Sodium/Sodium Chloride (Heparin 09909 Units/250ml 1/2 Normal Saline) 25,000 units in 250 mls @ 13.308 mls/hr IV .[id number] PRN; Protocol PRN Reason: ADJUST RATE PER PROTOCOL Last Titration: 07/03/18 13:56 Dose: 13.22 units/kg/hr, 9.774 mls/hr Insulin Human Regular (Humulin R Med) 0 units SC ACHS [facility]; Protocol Last Admin: 07/03/18 13:15 Dose: Not Given Losartan Potassium (Cozaar) 100 mg PO DAILY [facility]; Protocol Last Admin: 07/03/18 10:55 Dose: 100 mg Metoprolol Tartrate (Lopressor) 25 mg PO 0800,1800 [facility]; Protocol Last Admin: 07/03/18 08:24 Dose: 25 mg Morphine Sulfate (Morphine) 1 mg IVP Q3H PRN; Protocol PRN Reason: Pain, severe (8-10) Last Admin: 07/01/18 12:44 Dose: 1 mg Multi-Ingredient Cream (Hydrocerin Cream) 0 ea TOP BID [facility]; Protocol Last Admin: 07/03/18 10:54 Dose: 1 applic Nitroglycerin (Nitro-Bid 2% Oint) 2 ea TOP 0000,0600,1200,1800 [facility]; Protocol Last Admin: 07/03/18 13:18 Dose: 2 ea Ondansetron HCl (Zofran Inj) 4 mg IVP Q6H PRN; Protocol PRN Reason: Nausea/Vomiting Pantoprazole Sodium (Protonix Ec Tab) 40 mg PO 0600 [facility]; Protocol Last Admin: 07/03/18 05:40 Dose: 40 mg Potassium Chloride (K-Dur 20 Meq Er Tab) 20 meq PO 0800 [facility] Stop: 07/08/18 12:01 Last Admin: 07/03/18 13:17 Dose: 20 meq Prasugrel (Effient) 10 mg PO DAILY [facility]; Protocol Last Admin: 07/03/18 10:55 Dose: 10 mg Sitagliptin Phosphate (Januvia) 50 mg PO DAILY [facility]; Protocol Last Admin: 07/03/18 10:55 Dose: 50 mg Tramadol HCl (Ultram) 50 mg PO Q8H PRN PRN Reason: Pain, severe (8-10) Last Admin: 07/03/18 13:59 Dose: 50 mg Vitamin B Complex/Vit C/Folic Acid (Nephro-Maribel) 1 tab PO 0800 [facility]; Protocol Last Admin: 07/03/18 08:24 Dose: 1 tab Zolpidem Tartrate (Ambien) 5 mg PO HS [facility]; Protocol Last Admin: 07/02/18 21:12 Dose: 5 mg - Labs Labs: 07/03/18 07:00 07/02/18 06:00 PT 17.1 SECONDS (9.4-12.5) H 06/30/18 04:05 INR 1.49 06/30/18 04:05 APTT 45.6 Seconds (25.1-36.5) H 07/03/18 13:30
--- NOTE | 2018-07-03 16:19 | CP.PCM.PN ---
Subjective - Date & Time of Evaluation Date of Evaluation: 07/03/18 Time of Evaluation: 10:05 - Subjective Subjective: Comfortable, improved pain in the left foot. No fevers. Objective - Vital Signs/Intake and Output Vital Signs (last 24 hours): Temp Pulse Resp BP Pulse Ox 98.5 F 95 H 20 150/71 96 07/02/18 10:00 07/02/18 10:00 07/02/18 10:00 07/02/18 10:46 07/02/18 10:00 Intake and Output: 07/02/18 07/02/18 06:59 18:59 Intake Total 210 Balance 210 - Medications Medications: Current Medications Amlodipine Besylate (Norvasc) 5 mg PO DAILY [facility]; Protocol Last Admin: 07/02/18 10:46 Dose: 5 mg Apixaban (Eliquis) 2.5 mg PO BID [facility]; Protocol Last Admin: 06/29/18 17:39 Dose: 2.5 mg Atorvastatin Calcium (Lipitor) 40 mg PO DIN [facility]; Protocol Last Admin: 07/01/18 17:25 Dose: 40 mg Cyanocobalamin (Vitamin B12 1000 Mcg Tab) 1,000 mcg PO DAILY [facility]; Protocol Last Admin: 07/02/18 10:47 Dose: 1,000 mcg Ferrous Gluconate (Fergon) 324 mg PO TID [facility]; Protocol Last Admin: 07/02/18 10:46 Dose: 324 mg Heparin Sodium/Sodium Chloride (Heparin 92799 Units/250ml 1/2 Normal Saline) 25,000 units in 250 mls @ 13.308 mls/hr IV .[id number] PRN; Protocol PRN Reason: ADJUST RATE PER PROTOCOL Last Admin: 07/02/18 06:12 Dose: 9.22 units/kg/hr, 6.817 mls/hr Insulin Human Regular (Humulin R Med) 0 units SC ACHS [facility]; Protocol Last Admin: 07/02/18 07:42 Dose: Not Given Losartan Potassium (Cozaar) 100 mg PO DAILY [facility]; Protocol Last Admin: 07/02/18 10:45 Dose: 100 mg Metoprolol Tartrate (Lopressor) 25 mg PO 0800,1800 [facility]; Protocol Last Admin: 07/02/18 08:40 Dose: 25 mg Morphine Sulfate (Morphine) 1 mg IVP Q3H PRN; Protocol PRN Reason: Pain, severe (8-10) Last Admin: 07/01/18 12:44 Dose: 1 mg Multi-Ingredient Cream (Hydrocerin Cream) 0 ea TOP BID [facility]; Protocol Last Admin: 07/02/18 10:52 Dose: 1 applic Nitroglycerin (Nitro-Bid 2% Oint) 2 ea TOP 0000,0600,1200,1800 [facility]; Protocol Last Admin: 07/02/18 05:50 Dose: 2 ea Ondansetron HCl (Zofran Inj) 4 mg IVP Q6H PRN; Protocol PRN Reason: Nausea/Vomiting Pantoprazole Sodium (Protonix Ec Tab) 40 mg PO 0600 [facility]; Protocol Last Admin: 07/02/18 05:50 Dose: 40 mg Prasugrel (Effient) 10 mg PO DAILY [facility]; Protocol Last Admin: 07/02/18 10:45 Dose: 10 mg Sitagliptin Phosphate (Januvia) 50 mg PO DAILY [facility]; Protocol Last Admin: 07/02/18 10:46 Dose: 50 mg Tramadol HCl (Ultram) 50 mg PO Q8H PRN PRN Reason: Pain, severe (8-10) Last Admin: 07/02/18 10:50 Dose: 50 mg Vitamin B Complex/Vit C/Folic Acid (Nephro-Maribel) 1 tab PO 0800 [facility]; Protocol Last Admin: 07/02/18 08:41 Dose: 1 tab Zolpidem Tartrate (Ambien) 5 mg PO HS [facility]; Protocol Last Admin: 07/01/18 21:28 Dose: 5 mg - Labs Labs: 07/02/18 06:00 07/02/18 06:00 PT 17.1 SECONDS (9.4-12.5) H 06/30/18 04:05 INR 1.49 06/30/18 04:05 APTT 55.2 Seconds (25.1-36.5) H 07/02/18 06:00 - Constitutional Appears: Chronically Ill - Head Exam Head Exam: NORMAL INSPECTION - Respiratory Exam Respiratory Exam: Decreased Breath Sounds - Cardiovascular Exam Cardiovascular Exam: +S1, +S2 - GI/Abdominal Exam GI & Abdominal Exam: Soft. absent: Tenderness - Extremities Exam Additional comments: no swelling of left foot Assessment and Plan - Assessment and Plan (Free Text) Plan: Assessment S/P treatment with antibiotics of left foot cellulitis S/P left lower extremity angioplasty DVT chronic CHF CAD S/P PCI Plan continue to monitor off antibiotics since she is at risk for hospital-acquired infections discussed with Dr. Chisholm follow up further plans of Podiatry , surgery
[2018-07-04] MEDS: Nitroglycerin 2% Ointment Foilpak UD TOP SCH ×5 (00:38→23:48)
[2018-07-04] MEDS: Pantoprazole 40 mg EC Tab PO SCH (05:27)
[2018-07-04] MEDS: Insulin Reg-MEDIUM-Coverage SC SCH ×4 (06:35→21:27)
--- NOTE | 2018-07-04 09:01 | PN ---
DATE: 07/04/2018 SUBJECTIVE: I saw her resting in the Transitional Care Unit today. She is doing okay. She has a left foot that is very painful the other day which she had 2 days in a row where it is feeling okay. She actually walked with a walker the other day. She is still on the IV heparin. She is still on the nitro paste to the foot. She thinks it is making a difference. She is on Ambien, Cozaar, Effient, Eliquis is still on hold, Fergon, insulin coverage, Januvia, potassium replacement, Lasix, Lipitor, Lopressor, morphine for pain, Nephro-Maribel, nitroglycerin, Norvasc, Protonix, Ultram, vitamin B12 and Zofran. She is eating some, a little bit better spirits. PHYSICAL EXAMINATION: VITAL SIGNS: 98.2 temp, 84 pulse, 148/74 blood pressure, 20 respiratory rate, 93% O2 sat on oxygen. HEENT: Head is atraumatic, normocephalic. HEART: Regular rate. LUNGS: Decreased breath sounds, but clear. ABDOMEN: Soft, nontender. Positive bowel sounds. EXTREMITIES: The left foot is not as painful, may be a little bit better color with the nitroglycerin paste and the heparin. Walked a little bit comfortably yesterday. LABORATORY DATA: She has a 138 sodium, potassium 3.6, BUN 17, creatinine 0.9, last blood sugar was 155, GFR is greater than 60, calcium is 9, total bili is 0.7, AST is 27, ALT is 26, alk phos 102, total protein 7.1. 10.4 white count, hemoglobin 10.9, hematocrit 33.2, platelets of 289. ASSESSMENT AND PLAN: She is going for a venous and arterial Dopplers of the left lower extremity today. She has been seen by Infectious Disease, Renal, Podiatry, Interventional Radiologist. Hopefully, she will improve to be able to be discharged soon from TCU. Continue aggressive treatment and care on Tammy Padgett, who had a left leg peripheral vascular disease with three stents placed, coronary artery disease with 2 catheterization and I think also 3 stents placed. Rick Chisholm DO
[2018-07-04] MEDS: Potassium Chloride 20 mEq ER Tab PO SCH (10:55)
[2018-07-04] MEDS: Multivitamin Vitamin B Complex (Nephro-Vite) Tab PO SCH (10:56)
[2018-07-04] MEDS: Hydrocerin(120 gm) TOP SCH ×2 (10:59→17:30)
--- NOTE | 2018-07-04 11:36 | US ---
Date of service: 07/04/2018 PROCEDURE: Duplex arterial ultrasound left posterior tibial artery HISTORY: Severe PV Recent left lower extremity endovascular intervention. Persistent ischemia. Evaluate left posterior tibial artery for patent COMPARISON: TECHNIQUE: FINDINGS: The left posterior tibial artery is patent with diffuse atherosclerotic disease. Biphasic waveforms are noted throughout. No sonographically significant stenosis or velocities are detected IMPRESSION: Patent left posterior tibial artery into the foot
--- NOTE | 2018-07-04 11:39 | US ---
PROCEDURE: Lower extremity ELISABET exam HISTORY: Severe peripheral vascular disease. Diabetes. Recent left lower extremity endovascular intervention. Persistent left foot ischemia. Evaluate for subacute thrombosis PHYSICIAN(S): Lei Kirk MD. FINDINGS: The right resting ELISABET is mildly abnormal, 0.71. This is likely inaccurate due to calcification. The left resting ELISABET is markedly improved, 1.28. The distal left PVR waveforms are markedly improved compared to the pre intervention study. The waveforms are relatively normal to the left ankle. The left metatarsal waveforms are severely blunted, suggesting left pedal occlusive disease. There is a 53 mm gradient across the right thigh. This is consistent with right SFA occlusive disease. The right ankle and metatarsal waveforms are severely blunted. This is consistent with right popliteal, trifurcation, and/or tibial disease. IMPRESSION: 1. Significant improvement in the left ELISABET and distal waveforms compared to the prior study. 2. The left metatarsal waveforms remain severely blunted. This is consistent with left pedal occlusive disease. 3. Right SFA occlusive disease 4. Right popliteal, trifurcation, and/or tibial disease.
--- NOTE | 2018-07-04 12:20 | CP.PCM.PN ---
Subjective - Date & Time of Evaluation Date of Evaluation: 07/04/18 Time of Evaluation: 12:20 - Subjective Subjective: Nephrology Consultation Note: Assessment: Stable Acute Kidney Injury (N17.9) resolved iron def anemia, CHF, cellulitis CAD s/p stent and PVD 8 mm left non obs calculus hypokalemia Plan No acute need for renal replacement therapy at this time. Hypertension control with meds as ordered. Maintain hemodynamics stable. Avoid hypotension. Patient on losartan Monitor Input/Output, daily weights and renal function with basic metabolic panel continue with iron and MVI CAD/CHF management as per cardiology. resume low dose diuretics with KCL 20 meq/day, as tolerated by BP. PRBC as needed. supplement lytes as needed. ID following Dose meds/antibiotics for GFR >60. Glycemic control Further work up/management as per primary team Thanks for allowing me to participate in care of your patient. Will follow patient with you further prn basis. . Please call if any Qs Dr Cassius Hernández Office: [phone] Chief Complaint; leg pain Reason for consult: Acute Kidney Injury follow up HPI: Pt is a 72 F with hx of CHF, hypertension (years) presented with complaints of left foot cellulitis and found to have PVD s/p interevention and CAD s/p stent. also had BARTOLO with peaked cr 1.3. anemia. left 8 mm non obs calculus. pt now on TRCU and seen for BARTOLO follow up Denies OTC/herbal meds or NSAIDs No recent iodinated contrast exposure. No obvious episodes of low BP. ROS: Cardiovascular: No chest pain. Pulmonary: No shortness of breath Gastrointestinal: denies abdominal pain No nausea. No vomiting. Genitourinary: No pain while urinating. Denies blood in urine. All other negative except as mentioned in HPI. c/o leg pain Physical Examination: General Appearance: Comfortable, in no acute respiratory distress, co-operative . Vitals reviewed and noted as below Head; Atraumatic, normocephalic ENT: no ulcers no thrush. Tongue is midline. Oropharynx: no rash or ulcers. EYES: Pupils are equal, round and reactive to light accommodation. Eye muscles and extraocular movement intact. Sclera is anicteric. Neck; supple no lymphadenopathy, no thyromegaly or bruit Lungs: Normal respiratory rate/effort. Breath sounds bilateral equal and clear Heart: Normal rate. s1s2 normal. No rub or gallop. Extremities: trace edema. No varicose veins. left foot dressed. Neurological: Patient is alert, awake and oriented to person, place and time. No focal deficit. Strength bilateral appropriate and equal Skin: Warm and dry. Normal turgor. No rash. Palpitation: Normal elasticity for age Abdomen: Abdomen is soft. Bowel sounds +. There is no abdominal tenderness, no guarding/rigidity no organomegaly Psych: limited insight and normal affect/mood MSK: no joint tenderness or swelling. Digits and nails normal, no deformity : kidney or bladder not palpable Labs/imaging reviewed. Past medical history, past surgical history, family history, social history, allergy reviewed and noted as below Family hx: no hx of CKD. Rest non-contributory Objective - Vital Signs/Intake and Output Vital Signs (last 24 hours): Temp Pulse Resp BP Pulse Ox 98.2 F 88 20 146/75 93 L 07/03/18 16:00 07/04/18 10:57 07/03/18 16:00 07/04/18 10:58 07/03/18 16:00 - Medications Medications: Current Medications Amlodipine Besylate (Norvasc) 5 mg PO DAILY [facility]; Protocol Last Admin: 07/04/18 10:55 Dose: 5 mg Apixaban (Eliquis) 2.5 mg PO BID [facility]; Protocol Last Admin: 06/29/18 17:39 Dose: 2.5 mg Atorvastatin Calcium (Lipitor) 40 mg PO DIN [facility]; Protocol Last Admin: 07/03/18 17:42 Dose: 40 mg Cyanocobalamin (Vitamin B12 1000 Mcg Tab) 1,000 mcg PO DAILY [facility]; Protocol Last Admin: 07/04/18 10:57 Dose: 1,000 mcg Ferrous Gluconate (Fergon) 324 mg PO TID [facility]; Protocol Last Admin: 07/04/18 10:57 Dose: 324 mg Furosemide (Lasix) 20 mg PO DAILY [facility] Last Admin: 07/04/18 10:58 Dose: 20 mg Heparin Sodium/Sodium Chloride (Heparin 84943 Units/250ml 1/2 Normal Saline) 25,000 units in 250 mls @ 13.308 mls/hr IV .[id number] PRN; Protocol PRN Reason: ADJUST RATE PER PROTOCOL Last Titration: 07/03/18 13:56 Dose: 13.22 units/kg/hr, 9.774 mls/hr Insulin Human Regular (Humulin R Med) 0 units SC ACHS [facility]; Protocol Last Admin: 07/04/18 11:28 Dose: 1 unit Losartan Potassium (Cozaar) 100 mg PO DAILY [facility]; Protocol Last Admin: 07/04/18 10:55 Dose: 100 mg Metoprolol Tartrate (Lopressor) 25 mg PO 0800,1800 [facility]; Protocol Last Admin: 07/04/18 10:57 Dose: 25 mg Morphine Sulfate (Morphine) 1 mg IVP Q3H PRN; Protocol PRN Reason: Pain, severe (8-10) Last Admin: 07/01/18 12:44 Dose: 1 mg Multi-Ingredient Cream (Hydrocerin Cream) 0 ea TOP BID [facility]; Protocol Last Admin: 07/04/18 10:59 Dose: 1 applic Nitroglycerin (Nitro-Bid 2% Oint) 2 ea TOP 0000,0600,1200,1800 [facility]; Protocol Last Admin: 07/04/18 05:26 Dose: 2 ea Ondansetron HCl (Zofran Inj) 4 mg IVP Q6H PRN; Protocol PRN Reason: Nausea/Vomiting Pantoprazole Sodium (Protonix Ec Tab) 40 mg PO 0600 [facility]; Protocol Last Admin: 07/04/18 05:27 Dose: 40 mg Potassium Chloride (K-Dur 20 Meq Er Tab) 20 meq PO 0800 [facility] Stop: 07/08/18 12:01 Last Admin: 07/04/18 10:55 Dose: 20 meq Prasugrel (Effient) 10 mg PO DAILY [facility]; Protocol Last Admin: 07/04/18 10:56 Dose: 10 mg Sitagliptin Phosphate (Januvia) 50 mg PO DAILY [facility]; Protocol Last Admin: 07/04/18 10:57 Dose: 50 mg Tramadol HCl (Ultram) 50 mg PO Q8H PRN PRN Reason: Pain, severe (8-10) Last Admin: 07/03/18 13:59 Dose: 50 mg Vitamin B Complex/Vit C/Folic Acid (Nephro-Maribel) 1 tab PO 0800 [facility]; Protocol Last Admin: 07/04/18 10:56 Dose: 1 tab Zolpidem Tartrate (Ambien) 5 mg PO HS [facility]; Protocol Last Admin: 07/03/18 21:21 Dose: 5 mg - Labs Labs: 07/03/18 07:00 07/02/18 06:00 PT 17.1 SECONDS (9.4-12.5) H 06/30/18 04:05 INR 1.49 06/30/18 04:05 APTT 69.7 Seconds (25.1-36.5) H 07/04/18 07:45
[2018-07-05] MEDS: Nitroglycerin 2% Ointment Foilpak UD TOP SCH ×3 (05:22→18:03)
[2018-07-05] MEDS: Pantoprazole 40 mg EC Tab PO SCH (05:23)
[2018-07-05] MEDS: Insulin Reg-MEDIUM-Coverage SC SCH ×4 (06:32→21:35)
[2018-07-05] MEDS: Heparin25000 units/250ml 1/2NS 25,000 UNITS/250 ML BAG IV PRN (06:34)
[2018-07-05] MEDS: Multivitamin Vitamin B Complex (Nephro-Vite) Tab PO SCH (08:10)
[2018-07-05] MEDS: Potassium Chloride 20 mEq ER Tab PO SCH (08:35)
[2018-07-05] MEDS: Hydrocerin(120 gm) TOP SCH ×3 (11:17→18:01)
--- NOTE | 2018-07-05 12:17 | PN ---
DATE: 07/05/2018 SUBJECTIVE: She is resting comfortably in the TCU. She is still having left foot issues. She is on Ambien, Cozaar, Effient, Eliquis, Fergon, heparin IV, insulin, Hydrocerin cream, Januvia, potassium, Lasix, Lipitor, Lopressor, morphine, Nephro-Maribel, Norvasc, nitro paste to the foot, Protonix, Ultram, vitamin B12 and Zofran. She had about three stents placed and two cardiac cath. She is now possibly going to go for transmetatarsal amputation with Dr. Mcintosh. They do not think they could save the toes, I am hoping they could save a BKA if it heals up, otherwise she is heading for a BKA. PHYSICAL EXAMINATION VITAL SIGNS: She has 99.2 temp, 92 pulse, 157/85 blood pressure, 20 respiratory rate and 92% O2 sat on room air. HEENT: Head is atraumatic, normocephalic. HEART: Regular rate. LUNGS: Decreased breath sounds. ABDOMEN: Soft. EXTREMITIES: Left foot looks very poor. LABORATORY DATA: A 10.4 white count, 10.9 hemoglobin, 33.2 hematocrit with a 289,000 platelets. Her last blood sugar is 161. ASSESSMENT AND PLAN: We are keeping very close eye on her, she is being seen by Renal, Infectious Disease, Interventional Radiologist and Podiatry. There is a pain to the foot, the toes I believe have very poor circulation and she is going to probably loose some toes and we are trying to possibly do a transmetatarsal, save a left below knee amputation and that is the plan at this time. We will check her labs tomorrow. Continue with aggressive treatment and care with heparin and the paste as per Podiatry and Interventional Radiology. Rick Chisholm DO MTDD
--- NOTE | 2018-07-05 14:03 | CP.PCM.PN ---
Subjective - Date & Time of Evaluation Date of Evaluation: 07/05/18 Time of Evaluation: 14:00 - Subjective Subjective: Podiatry progress note for Dr. Mcintosh 72 yo female seen and evaluated at bedside with Dr. Mcintosh. States she is still in pain to her feet. She denies N/V/F/C/SOB/CP and had no acute events overnight. She has no other pedal complaints today. She has been spoken to regarding amputation due to ischemia of left foot. She is interested in transmetatarsal amputation over a BKA. Son is aware and agreeable as well. Objective - Vital Signs/Intake and Output Vital Signs (last 24 hours): Temp Pulse Resp BP Pulse Ox 99.2 F 86 20 122/77 93 L 07/04/18 16:00 07/05/18 10:29 07/04/18 16:00 07/05/18 10:39 07/04/18 16:00 - Medications Medications: Current Medications Amlodipine Besylate (Norvasc) 5 mg PO DAILY [facility]; Protocol Last Admin: 07/04/18 10:55 Dose: 5 mg Apixaban (Eliquis) 2.5 mg PO BID [facility]; Protocol Last Admin: 06/29/18 17:39 Dose: 2.5 mg Atorvastatin Calcium (Lipitor) 40 mg PO DIN [facility]; Protocol Last Admin: 07/04/18 17:29 Dose: 40 mg Cyanocobalamin (Vitamin B12 1000 Mcg Tab) 1,000 mcg PO DAILY [facility]; Protocol Last Admin: 07/05/18 10:37 Dose: 1,000 mcg Ferrous Gluconate (Fergon) 324 mg PO TID [facility]; Protocol Last Admin: 07/05/18 13:53 Dose: 324 mg Furosemide (Lasix) 20 mg PO DAILY [facility] Last Admin: 07/05/18 10:39 Dose: 20 mg Heparin Sodium/Sodium Chloride (Heparin 56692 Units/250ml 1/2 Normal Saline) 25,000 units in 250 mls @ 13.308 mls/hr IV .[id number] PRN; Protocol PRN Reason: ADJUST RATE PER PROTOCOL Last Admin: 07/05/18 06:34 Dose: 13.22 units/kg/hr, 9.774 mls/hr Insulin Human Regular (Humulin R Med) 0 units SC ACHS [facility]; Protocol Last Admin: 07/05/18 12:00 Dose: 3 unit Losartan Potassium (Cozaar) 100 mg PO DAILY [facility]; Protocol Last Admin: 07/04/18 10:55 Dose: 100 mg Metoprolol Tartrate (Lopressor) 25 mg PO 0800,1800 [facility]; Protocol Last Admin: 07/04/18 17:30 Dose: 25 mg Morphine Sulfate (Morphine) 1 mg IVP Q3H PRN; Protocol PRN Reason: Pain, severe (8-10) Last Admin: 07/01/18 12:44 Dose: 1 mg Multi-Ingredient Cream (Hydrocerin Cream) 0 ea TOP BID [facility]; Protocol Last Admin: 07/05/18 11:18 Dose: 1 applic Nitroglycerin (Nitro-Bid 2% Oint) 2 ea TOP 0000,0600,1200,1800 [facility]; Protocol Last Admin: 07/05/18 12:48 Dose: 2 ea Ondansetron HCl (Zofran Inj) 4 mg IVP Q6H PRN; Protocol PRN Reason: Nausea/Vomiting Pantoprazole Sodium (Protonix Ec Tab) 40 mg PO 0600 [facility]; Protocol Last Admin: 07/05/18 05:23 Dose: 40 mg Potassium Chloride (K-Dur 20 Meq Er Tab) 20 meq PO 0800 [facility] Stop: 07/08/18 12:01 Last Admin: 07/05/18 08:35 Dose: 20 meq Prasugrel (Effient) 10 mg PO DAILY [facility]; Protocol Last Admin: 07/05/18 10:32 Dose: 10 mg Sitagliptin Phosphate (Januvia) 50 mg PO DAILY [facility]; Protocol Last Admin: 07/05/18 10:35 Dose: 50 mg Tramadol HCl (Ultram) 50 mg PO Q8H PRN PRN Reason: Pain, severe (8-10) Last Admin: 07/05/18 13:56 Dose: 50 mg Vitamin B Complex/Vit C/Folic Acid (Nephro-Maribel) 1 tab PO 0800 [facility]; Protocol Last Admin: 07/05/18 08:10 Dose: 1 tab Zolpidem Tartrate (Ambien) 5 mg PO HS [facility]; Protocol Last Admin: 07/04/18 21:12 Dose: 5 mg - Labs Labs: 07/03/18 07:00 07/02/18 06:00 PT 17.1 SECONDS (9.4-12.5) H 06/30/18 04:05 INR 1.49 06/30/18 04:05 APTT 80.5 Seconds (25.1-36.5) H 07/05/18 07:45 - Constitutional Appears: Well, Non-toxic, No Acute Distress - Head Exam Head Exam: ATRAUMATIC, NORMOCEPHALIC - Extremities Exam Additional comments: Bilateral lower extremity exam: Vascular: DP/PT nonpalpable B/L. Temperature gradient warm to cool on R, warm to cold on L. Cap refill delayed > 3 secs to all digits, no edema noted. Pinpoint erythematous mottled lesions possibly indicative of ischemic changes noted on the dorsal aspect of the left foot. pale discoloration noted to the left foot Neuro: protective sensation grossly intact Derm: no IDM, no open lesions, xerosis and peeling of skin noted B/L, L>R. Deep tissue injury to the heel on the left - scab present. gangrenous changes noted to the third digits on the L side. MSK: moderate pain on palpation to the left foot. - Neurological Exam Neurological Exam: Alert, Awake, Oriented x3 - Psychiatric Exam Psychiatric exam: Normal Affect, Normal Mood Assessment and Plan - Assessment and Plan (Free Text) Assessment: 72 y/o female seen at bedside for left foot with vascular insufficiency, unstageable ulcer to left heel, L 3rd digit gangrenous changes Plan: Patient seen and evaluated at the bedside with Dr. Mcintosh Labs and vitals reviewed - afebrile, absent leukocytosis No dressings applied, open to air Dr. Kirk called regarding ischemic foot (06/30), temperature gradient reveals cold digits and distal foot - recs appreciated, f/u Patients foot has warmed up distally, discussed possibility of only resecting toes if blood flow appears adequate Surgery scheduled for Tuesday07/10/18 at 7:30AM Psych consulted Podiatry will continue to follow up the patient while in house
--- NOTE | 2018-07-05 16:52 | CP.PCM.PN ---
Subjective - Date & Time of Evaluation Date of Evaluation: 07/04/18 Time of Evaluation: 08:55 - Subjective Subjective: No increase in left foot pain, no fevers. Objective - Vital Signs/Intake and Output Vital Signs (last 24 hours): Temp Pulse Resp BP Pulse Ox 98.5 F 87 20 137/65 96 07/02/18 16:00 07/03/18 10:56 07/02/18 16:00 07/03/18 10:56 07/02/18 16:00 Intake and Output: 07/03/18 07/03/18 06:59 18:59 Intake Total 520 Balance 520 - Medications Medications: Current Medications Amlodipine Besylate (Norvasc) 5 mg PO DAILY [facility] BEDS AT [facility]; Protocol Last Admin: 07/03/18 10:56 Dose: 5 mg Apixaban (Eliquis) 2.5 mg PO BID [facility] 234 BEDS AT THE [facility]; Protocol Last Admin: 06/29/18 17:39 Dose: 2.5 mg Atorvastatin Calcium (Lipitor) 40 mg PO DIN [facility]; Protocol Last Admin: 07/02/18 17:49 Dose: 40 mg Cyanocobalamin (Vitamin B12 1000 Mcg Tab) 1,000 mcg PO DAILY [facility]; Protocol Last Admin: 07/03/18 10:56 Dose: 1,000 mcg Ferrous Gluconate (Fergon) 324 mg PO TID [facility] 234 BEDS AT THE [facility]; Protocol Last Admin: 07/03/18 13:21 Dose: 324 mg Furosemide (Lasix) 20 mg PO DAILY [facility] 234 BEDS AT THE [facility] Heparin Sodium/Sodium Chloride (Heparin 25190 Units/250ml 1/2 Normal Saline) 25,000 units in 250 mls @ 13.308 mls/hr IV .[id number] PRN; Protocol PRN Reason: ADJUST RATE PER PROTOCOL Last Titration: 07/03/18 13:56 Dose: 13.22 units/kg/hr, 9.774 mls/hr Insulin Human Regular (Humulin R Med) 0 units SC ACHS [facility] 234 BEDS AT THE [facility]; Protocol Last Admin: 07/03/18 13:15 Dose: Not Given Losartan Potassium (Cozaar) 100 mg PO DAILY [facility] 234 BEDS AT THE [facility]; Protocol Last Admin: 07/03/18 10:55 Dose: 100 mg Metoprolol Tartrate (Lopressor) 25 mg PO 0800,1800 [facility]; Protocol Last Admin: 07/03/18 08:24 Dose: 25 mg Morphine Sulfate (Morphine) 1 mg IVP Q3H PRN; Protocol PRN Reason: Pain, severe (8-10) Last Admin: 07/01/18 12:44 Dose: 1 mg Multi-Ingredient Cream (Hydrocerin Cream) 0 ea TOP BID [facility]; Protocol Last Admin: 07/03/18 10:54 Dose: 1 applic Nitroglycerin (Nitro-Bid 2% Oint) 2 ea TOP 0000,0600,1200,1800 [facility]; Protocol Last Admin: 07/03/18 13:18 Dose: 2 ea Ondansetron HCl (Zofran Inj) 4 mg IVP Q6H PRN; Protocol PRN Reason: Nausea/Vomiting Pantoprazole Sodium (Protonix Ec Tab) 40 mg PO 0600 [facility]; Protocol Last Admin: 07/03/18 05:40 Dose: 40 mg Potassium Chloride (K-Dur 20 Meq Er Tab) 20 meq PO 0800 [facility] Stop: 07/08/18 12:01 Last Admin: 07/03/18 13:17 Dose: 20 meq Prasugrel (Effient) 10 mg PO DAILY [facility]; Protocol Last Admin: 07/03/18 10:55 Dose: 10 mg Sitagliptin Phosphate (Januvia) 50 mg PO DAILY [facility]; Protocol Last Admin: 07/03/18 10:55 Dose: 50 mg Tramadol HCl (Ultram) 50 mg PO Q8H PRN PRN Reason: Pain, severe (8-10) Last Admin: 07/03/18 13:59 Dose: 50 mg Vitamin B Complex/Vit C/Folic Acid (Nephro-Maribel) 1 tab PO 0800 [facility]; Protocol Last Admin: 07/03/18 08:24 Dose: 1 tab Zolpidem Tartrate (Ambien) 5 mg PO HS [facility]; Protocol Last Admin: 07/02/18 21:12 Dose: 5 mg - Labs Labs: 07/03/18 07:00 07/02/18 06:00 PT 17.1 SECONDS (9.4-12.5) H 06/30/18 04:05 INR 1.49 06/30/18 04:05 APTT 45.6 Seconds (25.1-36.5) H 07/03/18 13:30 - Constitutional Appears: Chronically Ill - Head Exam Head Exam: NORMAL INSPECTION - Respiratory Exam Respiratory Exam: Decreased Breath Sounds - Cardiovascular Exam Cardiovascular Exam: +S1, +S2 - GI/Abdominal Exam GI & Abdominal Exam: Soft. absent: Tenderness - Extremities Exam Additional comments: left foot with no increased swelling or erythema Assessment and Plan - Assessment and Plan (Free Text) Plan: Assessment S/P treatment with antibiotics of left foot cellulitis in this patient with left foot ischemic changes with PVD S/P left lower extremity angioplasty DVT chronic CHF CAD S/P PCI Plan continue to monitor off antibiotics since she is at risk for healthcare- associated infections patient may need surgery to be done by Podiatry ([facility] or PATRICE)
[2018-07-05] MEDS: Morphine 2 mg/ml ISec IVP PRN (21:35)
[2018-07-06] MEDS: Nitroglycerin 2% Ointment Foilpak UD TOP SCH ×4 (00:38→17:26)
[2018-07-06] MEDS: Pantoprazole 40 mg EC Tab PO SCH (06:03)
[2018-07-06 06:53] LABS: HEMOGLOBIN 10.1 g/dL (12.0-16.0); MEAN CELL VOLUME 81.2 fl (80.0-105.0); MEAN CORPUSCULAR HEMOGLOBIN 26.4 pg (25.0-35.0); MEAN CORPUSCULAR HGB CONC 32.6 g/dl (31.0-37.0); MEAN PLATELET VOLUME 9.4 fl (7.0-11.0); RBC 3.82 10^6/uL (3.5-6.1); RED CELL DISTRIBUTION WIDTH 14.7 % (11.5-14.5); WHITE BLOOD COUNT 12.3 10^3/uL (4.5-11.0)
[2018-07-06] MEDS: Insulin Reg-MEDIUM-Coverage SC SCH ×4 (06:53→22:09)
[2018-07-06 07:26] LABS: ALB/GLOB RATIO 0.9 (1.1-1.8); ALBUMIN 2.8 g/dL (3.0-4.8); ALT/SGPT 34 U/L (7-56); AST/SGOT 21 U/L (14-36); BLOOD UREA NITROGEN 21 mg/dL (7-21); CALCIUM 8.5 mg/dL (8.4-10.5); GFR NON-AFRICAN AMERICAN > 60
--- NOTE | 2018-07-06 08:18 | PN ---
DATE: 07/06/2018 SUBJECTIVE: I saw her resting comfortably in bed in the Care Unit. The left foot is still dusky. The toes are not looking well, the color is not looking well, it is turning darkish, maybe blackish. The plan is to do a transmetatarsal amputation on Tuesday. She is still on heparin and she is still on a Nitro-Dur paste to the foot. We are hoping that this will prevent the BKA. MEDICATIONS: She is on Ambien, Cozaar, Effient, Eliquis is on hold, Fergon, heparin drip. Insulin, Hydrocerin cream, Januvia, potassium replacement, Lasix, Lipitor, Lopressor, morphine, Nephro-Maribel, Nitro-Bid, Norvasc, Protonix, Ultram, vitamin B12 and Zofran. OBJECTIVE: VITAL SIGNS: She has a 97.6 temperature, 96 pulse, 150/80 blood pressure, 18 respiratory rate, 96% O2 sat on room air. GENERAL: She is very motivated to save her foot, to save her leg. She is worried about that. She is trying to do all the right things. HEENT: Her head is atraumatic, normocephalic. HEART: Regular rate. LUNGS: Decreased breath sounds but clear. ABDOMEN: Soft. EXTREMITIES: The left foot is in bad shape. I do think she is a transmet. I do not know if it is going to take a 50/50 chance it will heal. LABORATORY DATA: She has a 12.3 white count high it has been, 10.1 hemoglobin, 31 hematocrit with 341,000 platelets. She has a 135 sodium, potassium 3.9, BUN 21, creatinine 0.9, GFR is greater than 60, sugar is 135, calcium is 8.5. Total bili is 0.5, AST is 21, ALT is 34, alk phos 106, total protein is 5.9. She is being seen by Infectious Disease, Podiatry, Renal, Interventional Radiology, and she is status post treatment of antibiotics for left foot cellulitis, left foot ischemic changes, PVD, status post left lower extremity angioplasty with stent placements, DVT history, CHF chronic. She is probably going to need to have a TMA on Tuesday hoping to save the leg. She will be in TCU getting heparin and nitro paste and trying to do the best we can to keep the foot out of trouble. Check her labs tomorrow. Family understands so does the patient. Rick Chisholm DO [facility]
[2018-07-06] MEDS: Potassium Chloride 20 mEq ER Tab PO SCH (08:25)
[2018-07-06] MEDS: Multivitamin Vitamin B Complex (Nephro-Vite) Tab PO SCH (08:29)
--- NOTE | 2018-07-06 15:09 | CP.PCM.PCO ---
Addendum Addendum: 07/06/18 08:44 pt is scheduled for limb amputation this coming Tuesday pt's son requested consult for emotional support for this patient because of limb amputation Emotional support could be provided by primary team/family discussed with RNs and PT team pt presented to be depressed and tearful, was not participating in PT please see consult for more detailed information. 07/06/18 15:07
--- NOTE | 2018-07-06 16:51 | CON ---
DATE: 07/06/2018 SUBJECTIVE: In short, the patient is 72-year-old female with multiple medical issues, DVT, CHF, coronary artery disease status post PCI. The patient was admitted on the medical side for evaluation of left foot pain. The patient was found to have left foot cellulitis. Psych consult was called for evaluation of the patient's mood. The patient was scheduled for limp amputation this coming Tuesday, and the patient's son requested consultation for "emotional support." This assembly instructions writer spoke to the medical team as well as physical therapy team as well as nursing staff. As per staff observation, the patient is not participating in physical therapy activities, has episodes of crying. The patient had depressed mood. This assembly instructions writer evaluated the patient today. The patient presented to be tearful, constricted affect. The patient knows that what is the treatment plan. The patient reported that she feels depressed, at times hopeless, but adamantly denied any thoughts of harming herself or others. The patient reported that she also feels worried and anxious, but the patient has realistic blurriness, and she feels that the other person in her place would feel the same way. The patient asked to contact her son, Javier, . resident caregiver called and obtained collateral information. As per collateral information, the patient never verbalized any thoughts of harming herself or others. The main reason why son initiated consult because the patient has episodes of anxiety as well as sleep problems as well as mood swings. Based on the collateral information, the patient never verbalized any thoughts of killing herself. The patient does not have history of mental illness. The patient had never been into the psychiatric inpatient unit. PHYSICAL EXAMINATION: VITAL SIGNS: Reviewed. Temperature 97.2, pulse is 88, blood pressure 153/82, respirations 16, and oxygen saturation is 94. MEDICATIONS: Reviewed. Xanax will be started at 0.25 mg twice a day. Risks, benefits and alternatives discussed. The patient is on Norvasc, aspirin, Lipitor, vitamin B12, Lasix, heparin, insulin, Cozaar, Lopressor, morphine, nitroglycerin, Protonix, Effient, Januvia, Ultram, Ambien 5 mg. LABORATORY DATA: Labs reviewed. Today, the patient has leukocytosis 12.3. Coagulation reviewed. Chemistry reviewed. MENTAL STATUS EXAMINATION: The patient presented to be alert, pleasant, cooperative. Mood described as depressed and anxious. Affect was tearful. Mood congruent. Thought process was coherent and goal directed. Thought content, the patient denied visual, auditory, or tactile hallucinations. Denied paranoid ideation. The patient has transient feeling of hopelessness, but denied any thoughts of harming self or others. Insight and judgment seemed to be fair. Impulses are well controlled. IMPRESSION: Rule out adjustment disorder with depressed and anxious mood, rule out mood disorder due to general medical condition. PLAN: Continue current management. Continue current medication. Collaterals from family obtained, discussed with the staff. Xanax was started. The patient is already on Ambien. From this assembly instructions writer's prospective, the patient has normal grief reaction, but we will follow up and advise accordingly. Supportive therapy provided. Should you have any questions give me a call back. Yazmin Owens MD
[2018-07-06] MEDS: Hydrocerin(120 gm) TOP SCH ×2 (17:24→17:25)
--- NOTE | 2018-07-06 19:37 | PN ---
DATE: 07/06/2018 SUBJECTIVE: The patient is in bed in no acute distress, nontoxic. PHYSICAL EXAMINATION: VITAL SIGNS: Temperature of 97, blood pressure is 160/80, respiratory rate 18. HEENT: Examination of HEENT is unremarkable. NECK: Supple. LUNGS: Have decreased breath sounds. HEART: Normal S1, S2. ABDOMEN: Soft, nontender. LABORATORY EXAMINATION: Reveals a white count of 12,300, hemoglobin of 10. Chemistries are noted and microbiology is reviewed. ASSESSMENT AND PLAN: This is a 72-year-old female with status post treatment with antibiotics for left foot cellulitis and left foot ischemic changes with peripheral vascular disease. Currently, off of antibiotics and the patient is for possible amputation. Review of orders reveals the patient to be off of antibiotics. The patient is at risk for developing nosocomial infections. Dakota Stewart MD
[2018-07-07] MEDS: Nitroglycerin 2% Ointment Foilpak UD TOP SCH ×4 (01:00→17:21)
[2018-07-07] MEDS: Pantoprazole 40 mg EC Tab PO SCH (06:12)
[2018-07-07 06:18] LABS: HEMOGLOBIN 9.9 g/dL (12.0-16.0); MEAN CELL VOLUME 80.2 fl (80.0-105.0); MEAN CORPUSCULAR HEMOGLOBIN 26.5 pg (25.0-35.0); MEAN PLATELET VOLUME 8.9 fl (7.0-11.0); RBC 3.74 10^6/uL (3.5-6.1); RED CELL DISTRIBUTION WIDTH 14.5 % (11.5-14.5); WHITE BLOOD COUNT 12.4 10^3/uL (4.5-11.0)
[2018-07-07] MEDS: Insulin Reg-MEDIUM-Coverage SC SCH ×3 (06:56→17:17)
[2018-07-07 08:14] LABS: ALB/GLOB RATIO 0.9 (1.1-1.8); ALBUMIN 2.9 g/dL (3.0-4.8); ALT/SGPT 24 U/L (7-56); AST/SGOT 34 U/L (14-36); BLOOD UREA NITROGEN 21 mg/dL (7-21); CALCIUM 8.6 mg/dL (8.4-10.5); GFR NON-AFRICAN AMERICAN 54
[2018-07-07] MEDS: Potassium Chloride 20 mEq ER Tab PO SCH (08:27)
[2018-07-07] MEDS: Multivitamin Vitamin B Complex (Nephro-Vite) Tab PO SCH (08:28)
[2018-07-07] MEDS ORDERED: Potassium Chloride 20 mEq ER Tab PO ONE (09:37)
[2018-07-07] MEDS: Hydrocerin(120 gm) TOP SCH ×2 (10:34→17:22)
--- NOTE | 2018-07-07 11:45 | PN ---
DATE: 07/07/2018 SUBJECTIVE: She is in the TCU. She has a left foot that is going to need to get a transmetatarsal amputation on Tuesday. MEDICATIONS: She is on Ambien, Cozaar, Effient, Fergon, heparin IV, insulin, Hydrocerin cream, Januvia, potassium, Lasix, Lipitor, Lopressor, morphine, Nephro-Maribel, Nitro-Bid to the foot, Norvasc, Protonix, Ultram, vitamin B12 with Xanax and Zofran. PHYSICAL EXAMINATION: GENERAL: She is resting in bed. She is alert. She is comfortable. She understands the plan. Psychiatry saw her. She is feeling better. She is looking at me. She is talking. She is appropriate. VITAL SIGNS: She has 98.6 temperature, 73 pulse, 140/83 blood pressure, 18 respiratory rate, 95% O2 sat on room air. HEENT: Head is atraumatic, normocephalic. Throat is moist. NECK: Supple. HEART: Regular rate. LUNGS: Decreased breath sounds but clear. ABDOMEN: Soft. EXTREMITIES: Her left foot does not look good in the toes. I agree with the transmetatarsal amputation, hopefully they will heal. LABORATORY DATA: She has a 12.4 white count, 9.9 hemoglobin, 30 hematocrit with 315 platelets. She has 136 sodium, potassium 3.5, we will give her K Heri. BUN 21, creatinine GFR is 54, sugar is 158, calcium is 8.6. Total bili is 0.4, AST is 34, ALT is 24, alk phos 91, total protein 6.2. ASSESSMENT AND PLAN: She is being seen by Infectious Diseases, Psychiatry, Podiatry, and Surgery and interventional radiologist. The plan is going to be in trying to save her left leg and just keep it as a transmetatarsal amputation, hopefully it will heal. She is off the antibiotics at this time and heparin. She was depressed. She is doing better now after talking to Psychiatry. Rick Chisholm DO [facility]
--- NOTE | 2018-07-07 15:31 | CP.PCM.PN ---
Subjective - Date & Time of Evaluation Date of Evaluation: 07/07/18 Time of Evaluation: 09:25 - Subjective Subjective: No new complaints, no fevers. No increase in left foot pain. Objective - Vital Signs/Intake and Output Vital Signs (last 24 hours): Temp Pulse Resp BP Pulse Ox 97.6 F 103 H 18 151/84 H 96 07/05/18 16:00 07/05/18 16:00 07/05/18 16:00 07/05/18 16:00 07/05/18 16:00 - Medications Medications: Current Medications Amlodipine Besylate (Norvasc) 5 mg PO DAILY [facility]; Protocol Last Admin: 07/04/18 10:55 Dose: 5 mg Apixaban (Eliquis) 2.5 mg PO BID [facility]; Protocol Last Admin: 06/29/18 17:39 Dose: 2.5 mg Atorvastatin Calcium (Lipitor) 40 mg PO DIN [facility]; Protocol Last Admin: 07/04/18 17:29 Dose: 40 mg Cyanocobalamin (Vitamin B12 1000 Mcg Tab) 1,000 mcg PO DAILY [facility]; Protocol Last Admin: 07/05/18 10:37 Dose: 1,000 mcg Ferrous Gluconate (Fergon) 324 mg PO TID [facility]; Protocol Last Admin: 07/05/18 13:53 Dose: 324 mg Furosemide (Lasix) 20 mg PO DAILY [facility] Last Admin: 07/05/18 10:39 Dose: 20 mg Heparin Sodium/Sodium Chloride (Heparin 82720 Units/250ml 1/2 Normal Saline) 25,000 units in 250 mls @ 13.308 mls/hr IV .[id number] PRN; Protocol PRN Reason: ADJUST RATE PER PROTOCOL Last Admin: 07/05/18 06:34 Dose: 13.22 units/kg/hr, 9.774 mls/hr Insulin Human Regular (Humulin R Med) 0 units SC ACHS [facility]; Protocol Last Admin: 07/05/18 12:00 Dose: 3 unit Losartan Potassium (Cozaar) 100 mg PO DAILY [facility]; Protocol Last Admin: 07/04/18 10:55 Dose: 100 mg Metoprolol Tartrate (Lopressor) 25 mg PO 0800,1800 [facility]; Protocol Last Admin: 07/04/18 17:30 Dose: 25 mg Morphine Sulfate (Morphine) 1 mg IVP Q3H PRN; Protocol PRN Reason: Pain, severe (8-10) Last Admin: 07/01/18 12:44 Dose: 1 mg Multi-Ingredient Cream (Hydrocerin Cream) 0 ea TOP BID [facility]; Protocol Last Admin: 07/05/18 11:18 Dose: 1 applic Nitroglycerin (Nitro-Bid 2% Oint) 2 ea TOP 0000,0600,1200,1800 [facility]; Protocol Last Admin: 07/05/18 12:48 Dose: 2 ea Ondansetron HCl (Zofran Inj) 4 mg IVP Q6H PRN; Protocol PRN Reason: Nausea/Vomiting Pantoprazole Sodium (Protonix Ec Tab) 40 mg PO 0600 [facility]; Protocol Last Admin: 07/05/18 05:23 Dose: 40 mg Potassium Chloride (K-Dur 20 Meq Er Tab) 20 meq PO 0800 [facility] Stop: 07/08/18 12:01 Last Admin: 07/05/18 08:35 Dose: 20 meq Prasugrel (Effient) 10 mg PO DAILY [facility]; Protocol Last Admin: 07/05/18 10:32 Dose: 10 mg Sitagliptin Phosphate (Januvia) 50 mg PO DAILY [facility]; Protocol Last Admin: 07/05/18 10:35 Dose: 50 mg Tramadol HCl (Ultram) 50 mg PO Q8H PRN PRN Reason: Pain, severe (8-10) Last Admin: 07/05/18 13:56 Dose: 50 mg Vitamin B Complex/Vit C/Folic Acid (Nephro-Maribel) 1 tab PO 0800 [facility]; Protocol Last Admin: 07/05/18 08:10 Dose: 1 tab Zolpidem Tartrate (Ambien) 5 mg PO HS [facility]; Protocol Last Admin: 07/04/18 21:12 Dose: 5 mg - Labs Labs: 07/03/18 07:00 07/02/18 06:00 PT 17.1 SECONDS (9.4-12.5) H 06/30/18 04:05 INR 1.49 06/30/18 04:05 APTT 80.5 Seconds (25.1-36.5) H 07/05/18 07:45 - Constitutional Appears: Chronically Ill - Head Exam Head Exam: NORMAL INSPECTION - Respiratory Exam Respiratory Exam: Decreased Breath Sounds - Cardiovascular Exam Cardiovascular Exam: +S1, +S2 - GI/Abdominal Exam GI & Abdominal Exam: Soft. absent: Tenderness Assessment and Plan - Assessment and Plan (Free Text) Plan: Assessment S/P treatment with antibiotics of left foot cellulitis in this patient with left foot ischemic changes with PVD S/P left lower extremity angioplasty DVT chronic CHF CAD S/P PCI Plan continue to monitor off antibiotics since she is at risk for nosocomial infections patient may need surgery to be done by Podiatry ([facility]NAZ or PATRICE)
[2018-07-07] MEDS: Heparin25000 units/250ml 1/2NS 25,000 UNITS/250 ML BAG IV PRN (16:39)
--- NOTE | 2018-07-07 19:02 | PN ---
DATE: 07/07/2018 SUBJECTIVE: In short, the patient is a 72-year-old female, multiple medical issues. This publicity writer was involved into the patient care because the patient was depressed over the fact that her foot will be amputated. Please see initial note for more detailed information. This publicity writer initiated Xanax yesterday as needed for anxiety. The patient was not required to have any Xanax. This publicity writer followed up on this patient today. The patient presented to be alert, somewhat tearful, which is expected. Overall, the patient presented well. The patient denied any thoughts of harming herself or others. Denied feeling of hopelessness or helplessness. OBJECTIVE: VITAL SIGNS: Reviewed. The patient had mild elevation of blood pressure. MENTAL STATUS EXAM: The patient presented to be alert and oriented, pleasant, cooperative. Affect was tearful. Mood congruent. Mood described as depressed and anxious. Thought process coherent and goal directed. Thought content, the patient denied visual, auditory or tactile hallucinations. Denied paranoid ideation. The patient denied thoughts of harming herself or others. Denied intent or plan. Insight and judgment seems to be fair. Impulses are well controlled. MEDICATIONS: Reviewed. The patient was started on Xanax 0.25 mg twice a day as needed, Norvasc, Eliquis, Lipitor, vitamin B12, Fergon, Lasix, heparin, Humulin, Cozaar, morphine, Lopressor, nitroglycerin, Zofran, Protonix, K-Dur, Effient, Januvia, vitamin B complex, and Ambien. LABORATORY DATA: Reviewed. Most recent was from today. The patient has leukocytosis. Chemistry reviewed. Potassium 3.5. IMPRESSION: Most likely, the patient has adjustment disorder with depressed and anxious mood versus mood disorder due to general medical condition. PLAN: This publicity writer started Xanax small dose for anxiety. The patient is already on Ambien. The patient is not suicidal, not homicidal. Emotional support provided to the patient. Family is involved. vice president quality called family and for collateral information, please see yesterday's note for more detailed information. From the psychiatric standpoint, the patient is not in any acute distress, not suicidal nor homicidal. This publicity writer will sign off. Should you have any questions, give me a call back. Yazmin Owens MD [facility] # [phone]
[2018-07-08] MEDS: Insulin Reg-MEDIUM-Coverage SC SCH ×5 (00:02→21:17)
[2018-07-08] MEDS: Nitroglycerin 2% Ointment Foilpak UD TOP SCH ×4 (06:05→17:21)
[2018-07-08] MEDS: Pantoprazole 40 mg EC Tab PO SCH (06:05)
[2018-07-08 06:31] LABS: MEAN CELL VOLUME 80.5 fl (80.0-105.0); MEAN CORPUSCULAR HEMOGLOBIN 26.3 pg (25.0-35.0); MEAN CORPUSCULAR HGB CONC 32.7 g/dl (31.0-37.0); MEAN PLATELET VOLUME 9.2 fl (7.0-11.0); RBC 3.8 10^6/uL (3.5-6.1); RED CELL DISTRIBUTION WIDTH 14.5 % (11.5-14.5); WHITE BLOOD COUNT 12.3 10^3/uL (4.5-11.0)
[2018-07-08 06:41] LABS: ALB/GLOB RATIO 0.9 (1.1-1.8); ALBUMIN 2.9 g/dL (3.0-4.8); ALT/SGPT 22 U/L (7-56); AST/SGOT 29 U/L (14-36); BLOOD UREA NITROGEN 21 mg/dL (7-21); CALCIUM 8.5 mg/dL (8.4-10.5); GFR NON-AFRICAN AMERICAN 54
[2018-07-08] MEDS: Potassium Chloride 20 mEq ER Tab PO SCH (08:39)
[2018-07-08] MEDS: Multivitamin Vitamin B Complex (Nephro-Vite) Tab PO SCH (08:41)
--- NOTE | 2018-07-08 08:54 | PN ---
DATE: 07/08/2018 SUBJECTIVE: I saw her resting comfortably in TCU. She is going to go for a transmet TMA on Tuesday, presently right now in the room is in odor, is a gangrenous odor. When we look at the left foot, there are gangrenous toes. I believe the TMA might work as demarcating around the toe area, the PIP joint. MEDICATIONS: She is on Ambien, Cozaar, Effient, Eliquis, Fergon, insulin, Hydrocerin cream, Januvia, potassium replacement, Lasix, Lipitor, Lopressor, morphine, vitamin D, nitroglycerin, Norvasc, Protonix, Ultram, Xanax and Zofran. PHYSICAL EXAMINATION: VITAL SIGNS: She has a 98.5 temperature, 84 pulse, 157/88 blood pressure blood pressure, 20 respiratory rate, 95% O2 sat on room air. GENERAL: She is alert. She is comfortable in bed. She understands what is going on. HEART: Regular rate. LUNGS: Clear to auscultation. ABDOMEN: Soft. EXTREMITIES: The left foot, the toes are turning black and gangrenous and there is an odor. LABORATORY DATA: She did have a TMA done, will be done on Tuesday. She has a 12.3 white count, 10 hemoglobin, 30.6 hematocrit, 302,000 platelets. She has 136 sodium, potassium 3.8, BUN is 21, creatinine 1, GFR is 54, sugar is 161, calcium is 8.5, total bili is 0.5, AST is 29, ALT is 22, alk phos 87, total protein 6.2. She is being seen by Infectious Disease, Psychiatry, Surgery. Hopefully, she will do well. We will continue aggressive treatment and care. Checking her labs. She is off antibiotics at this time with an elevated white count of 12 with ischemic changes of the foot and gangrenous left foot toe. Thank you very much for TMA on Tuesday. Rick Chisholm DO [facility]
--- NOTE | 2018-07-08 09:17 | CP.PCM.PN ---
Subjective - Date & Time of Evaluation Date of Evaluation: 07/08/18 Time of Evaluation: 09:15 - Subjective Subjective: Podiatry progress note for Dr. Bojorquez 72 yo female seen and evaluated at bedside. States she is still in pain to her feet. She denies N/V/F/C/SOB/CP and had no acute events overnight. She has no other pedal complaints today. She has been spoken to regarding amputation due to ischemia of left foot. Patient is aware she is scheduled for surgery on Tuesday. Objective - Vital Signs/Intake and Output Vital Signs (last 24 hours): Temp Pulse Resp BP Pulse Ox 98.5 F 84 20 150/72 95 07/07/18 16:00 07/07/18 17:20 07/07/18 16:00 07/08/18 08:41 07/07/18 16:00 - Medications Medications: Current Medications Alprazolam (Xanax) 0.25 mg PO BID PRN; Protocol PRN Reason: Anxiety Stop: 07/13/18 11:46 Amlodipine Besylate (Norvasc) 5 mg PO DAILY [facility]; Protocol Last Admin: 07/07/18 10:35 Dose: 5 mg Apixaban (Eliquis) 2.5 mg PO BID [facility]; Protocol Last Admin: 06/29/18 17:39 Dose: 2.5 mg Atorvastatin Calcium (Lipitor) 40 mg PO DIN [facility]; Protocol Last Admin: 07/07/18 17:19 Dose: 40 mg Cyanocobalamin (Vitamin B12 1000 Mcg Tab) 1,000 mcg PO DAILY [facility]; Protocol Last Admin: 07/07/18 10:35 Dose: 1,000 mcg Ferrous Gluconate (Fergon) 324 mg PO TID [facility]; Protocol Last Admin: 07/07/18 17:17 Dose: 324 mg Furosemide (Lasix) 20 mg PO DAILY [facility] Last Admin: 07/07/18 10:35 Dose: 20 mg Insulin Human Regular (Humulin R Med) 0 units SC ACHS [facility]; Protocol Last Admin: 07/08/18 06:52 Dose: 1 unit Losartan Potassium (Cozaar) 100 mg PO DAILY [facility]; Protocol Last Admin: 07/07/18 10:34 Dose: 100 mg Metoprolol Tartrate (Lopressor) 25 mg PO 0800,1800 [facility]; Protocol Last Admin: 07/08/18 08:41 Dose: 25 mg Morphine Sulfate (Morphine) 1 mg IVP Q3H PRN; Protocol PRN Reason: Pain, severe (8-10) Last Admin: 07/05/18 21:35 Dose: 1 mg Multi-Ingredient Cream (Hydrocerin Cream) 0 ea TOP BID [facility]; Protocol Last Admin: 07/07/18 17:22 Dose: 1 applic Nitroglycerin (Nitro-Bid 2% Oint) 2 ea TOP 0000,0600,1200,1800 [facility]; Protocol Last Admin: 07/08/18 06:05 Dose: 2 ea Ondansetron HCl (Zofran Inj) 4 mg IVP Q6H PRN; Protocol PRN Reason: Nausea/Vomiting Pantoprazole Sodium (Protonix Ec Tab) 40 mg PO 0600 [facility]; Protocol Last Admin: 07/08/18 06:05 Dose: 40 mg Potassium Chloride (K-Dur 20 Meq Er Tab) 20 meq PO 0800 [facility] Stop: 07/08/18 12:01 Last Admin: 07/08/18 08:39 Dose: 20 meq Prasugrel (Effient) 10 mg PO DAILY [facility]; Protocol Last Admin: 07/07/18 10:34 Dose: 10 mg Sitagliptin Phosphate (Januvia) 50 mg PO DAILY [facility]; Protocol Last Admin: 07/07/18 10:34 Dose: 50 mg Tramadol HCl (Ultram) 50 mg PO Q8H PRN PRN Reason: Pain, severe (8-10) Last Admin: 07/07/18 10:42 Dose: 50 mg Vitamin B Complex/Vit C/Folic Acid (Nephro-Maribel) 1 tab PO 0800 [facility]; Protocol Last Admin: 07/08/18 08:41 Dose: 1 tab Zolpidem Tartrate (Ambien) 5 mg PO HS [facility]; Protocol Last Admin: 07/07/18 21:06 Dose: 5 mg - Labs Labs: 07/08/18 06:00 07/08/18 06:00 PT 17.1 SECONDS (9.4-12.5) H 06/30/18 04:05 INR 1.49 06/30/18 04:05 APTT 29.9 Seconds (25.1-36.5) 07/08/18 06:00 - Constitutional Appears: Well, Non-toxic, No Acute Distress - Head Exam Head Exam: ATRAUMATIC, NORMOCEPHALIC - Extremities Exam Additional comments: Bilateral lower extremity exam: Vascular: DP/PT nonpalpable B/L. Temperature gradient warm to cool on R, warm to cold on L. Cap refill delayed > 3 secs to all digits, no edema noted. Pinpoint erythematous mottled lesions possibly indicative of ischemic changes noted on the dorsal aspect of the left foot. pale discoloration noted to the left foot Neuro: protective sensation grossly intact Derm: no IDM, no open lesions, xerosis and peeling of skin noted B/L, L>R. Deep tissue injury to the heel on the left - scab present. gangrenous changes noted to the third digits on the L side. MSK: moderate pain on palpation to the left foot. - Neurological Exam Neurological Exam: Alert, Awake, Oriented x3 - Psychiatric Exam Psychiatric exam: Normal Affect, Normal Mood Assessment and Plan - Assessment and Plan (Free Text) Assessment: 72 y/o female seen at bedside for left foot with vascular insufficiency, unstageable ulcer to left heel, L 3rd digit gangrenous changes Plan: Patient seen and evaluated at the bedside with Dr. Bojorquez Labs and vitals reviewed - afebrile, positive leukocytosis WBC 12.3 No dressings applied, open to air Dr. Kirk called regarding ischemic foot (06/30), temperature gradient reveals cold digits and distal foot - recs appreciated, f/u Patients foot has warmed up distally, discussed possibility of only resecting toes if blood flow appears adequate Surgery scheduled for Tuesday07/10/18 at 7:30AM Psych consulted Podiatry will continue to follow up the patient while in house
[2018-07-08] MEDS: Hydrocerin(120 gm) TOP SCH ×2 (09:39→17:18)
--- NOTE | 2018-07-08 12:05 | CP.PCM.PN ---
Subjective - Date & Time of Evaluation Date of Evaluation: 07/08/18 Time of Evaluation: 09:05 - Subjective Subjective: No increased pain in the left foot, no fevers, no nausea. Objective - Vital Signs/Intake and Output Vital Signs (last 24 hours): Temp Pulse Resp BP Pulse Ox 98.6 F 73 18 162/82 H 95 07/06/18 16:44 07/06/18 16:44 07/06/18 16:44 07/07/18 10:35 07/06/18 16:44 Intake and Output: 07/07/18 07/07/18 06:59 18:59 Intake Total 420 Balance 420 - Medications Medications: Current Medications Alprazolam (Xanax) 0.25 mg PO BID PRN; Protocol PRN Reason: Anxiety Stop: 07/13/18 11:46 Amlodipine Besylate (Norvasc) 5 mg PO DAILY [facility]; Protocol Last Admin: 07/07/18 10:35 Dose: 5 mg Apixaban (Eliquis) 2.5 mg PO BID [facility]; Protocol Last Admin: 06/29/18 17:39 Dose: 2.5 mg Atorvastatin Calcium (Lipitor) 40 mg PO DIN [facility]; Protocol Last Admin: 07/06/18 17:25 Dose: 40 mg Cyanocobalamin (Vitamin B12 1000 Mcg Tab) 1,000 mcg PO DAILY [facility]; Protocol Last Admin: 07/07/18 10:35 Dose: 1,000 mcg Ferrous Gluconate (Fergon) 324 mg PO TID [facility]; Protocol Last Admin: 07/07/18 13:26 Dose: 324 mg Furosemide (Lasix) 20 mg PO DAILY [facility] Last Admin: 07/07/18 10:35 Dose: 20 mg Heparin Sodium/Sodium Chloride (Heparin 77355 Units/250ml 1/2 Normal Saline) 25,000 units in 250 mls @ 13.308 mls/hr IV .[id number] PRN; Protocol PRN Reason: ADJUST RATE PER PROTOCOL Last Admin: 07/05/18 06:34 Dose: 13.22 units/kg/hr, 9.774 mls/hr Insulin Human Regular (Humulin R Med) 0 units SC ACHS [facility]; Protocol Last Admin: 07/07/18 12:39 Dose: 1 unit Losartan Potassium (Cozaar) 100 mg PO DAILY [facility]; Protocol Last Admin: 07/07/18 10:34 Dose: 100 mg Metoprolol Tartrate (Lopressor) 25 mg PO 0800,1800 [facility]; Protocol Last Admin: 07/07/18 08:28 Dose: 25 mg Morphine Sulfate (Morphine) 1 mg IVP Q3H PRN; Protocol PRN Reason: Pain, severe (8-10) Last Admin: 07/05/18 21:35 Dose: 1 mg Multi-Ingredient Cream (Hydrocerin Cream) 0 ea TOP BID [facility]; Protocol Last Admin: 07/07/18 10:34 Dose: 1 applic Nitroglycerin (Nitro-Bid 2% Oint) 2 ea TOP 0000,0600,1200,1800 [facility]; Protocol Last Admin: 07/07/18 12:40 Dose: 2 ea Ondansetron HCl (Zofran Inj) 4 mg IVP Q6H PRN; Protocol PRN Reason: Nausea/Vomiting Pantoprazole Sodium (Protonix Ec Tab) 40 mg PO 0600 [facility]; Protocol Last Admin: 07/07/18 06:12 Dose: 40 mg Potassium Chloride (K-Dur 20 Meq Er Tab) 20 meq PO 0800 [facility] Stop: 07/08/18 12:01 Last Admin: 07/07/18 08:27 Dose: 20 meq Prasugrel (Effient) 10 mg PO DAILY [facility]; Protocol Last Admin: 07/07/18 10:34 Dose: 10 mg Sitagliptin Phosphate (Januvia) 50 mg PO DAILY [facility]; Protocol Last Admin: 07/07/18 10:34 Dose: 50 mg Tramadol HCl (Ultram) 50 mg PO Q8H PRN PRN Reason: Pain, severe (8-10) Last Admin: 07/07/18 10:42 Dose: 50 mg Vitamin B Complex/Vit C/Folic Acid (Nephro-Maribel) 1 tab PO 0800 [facility]; Protocol Last Admin: 07/07/18 08:28 Dose: 1 tab Zolpidem Tartrate (Ambien) 5 mg PO HS [facility]; Protocol Last Admin: 07/06/18 21:36 Dose: 5 mg - Labs Labs: 07/07/18 06:11 07/07/18 06:11 PT 17.1 SECONDS (9.4-12.5) H 06/30/18 04:05 INR 1.49 06/30/18 04:05 APTT 57.9 Seconds (25.1-36.5) H 07/07/18 06:11 - Constitutional Appears: Non-toxic, Chronically Ill - Head Exam Head Exam: NORMAL INSPECTION - Respiratory Exam Respiratory Exam: Decreased Breath Sounds - Cardiovascular Exam Cardiovascular Exam: +S1, +S2 - GI/Abdominal Exam GI & Abdominal Exam: Soft. absent: Tenderness - Extremities Exam Additional comments: left foot feels cold to touch, dusky discoloration noted of the toes Assessment and Plan - Assessment and Plan (Free Text) Plan: Assessment S/P treatment with antibiotics of left foot cellulitis in this patient with left foot ischemic changes with PVD S/P left lower extremity angioplasty DVT chronic CHF CAD S/P PCI Plan continue to monitor off antibiotics since she is at risk for hospital-acquired infections patient will get TMA on Tuesday discussed with Dr. Chisholm
[2018-07-09] MEDS: Pantoprazole 40 mg EC Tab PO SCH (05:26)
[2018-07-09] MEDS: Nitroglycerin 2% Ointment Foilpak UD TOP SCH ×4 (05:26→17:30)
[2018-07-09 06:30] LABS: HEMOGLOBIN 10.6 g/dL (12.0-16.0); MEAN CELL VOLUME 80.8 fl (80.0-105.0); MEAN CORPUSCULAR HEMOGLOBIN 26.4 pg (25.0-35.0); MEAN CORPUSCULAR HGB CONC 32.6 g/dl (31.0-37.0); MEAN PLATELET VOLUME 9.1 fl (7.0-11.0); RBC 4.02 10^6/uL (3.5-6.1); RED CELL DISTRIBUTION WIDTH 14.5 % (11.5-14.5)
[2018-07-09] MEDS: Insulin Reg-MEDIUM-Coverage SC SCH ×4 (06:58→21:26)
[2018-07-09 07:44] LABS: ALB/GLOB RATIO 0.9 (1.1-1.8); ALBUMIN 3.3 g/dL (3.0-4.8); ALT/SGPT 28 U/L (7-56); AST/SGOT 35 U/L (14-36); BLOOD UREA NITROGEN 19 mg/dL (7-21); GFR NON-AFRICAN AMERICAN > 60
[2018-07-09] MEDS: Hydrocerin(120 gm) TOP SCH ×2 (09:23→17:29)
[2018-07-09] MEDS: Multivitamin Vitamin B Complex (Nephro-Vite) Tab PO SCH (09:24)
--- NOTE | 2018-07-09 10:15 | CP.PCM.PCO ---
Physician Communication Note - Physician Communication Note Physician Communication Note: Pt seen and evaluated, aware surgery is on Tuesday and NPO past night
--- NOTE | 2018-07-09 11:47 | PN ---
DATE: 07/09/2018 SUBJECTIVE: I saw her this morning resting comfortably in bed. She slept fairly well last night. Tomorrow, she is going for a TMA and she left the questions for me this morning. She did sleep well. She is trying to eat, lost her appetite a little bit for worrying about tomorrow's surgery. She had questions to me about the surgery and where she goes afterwards. MEDICATIONS: She is on Ambien, Cozaar, Effient and Eliquis is on hold. I did talk to Cardiology about the Effient when we should stop it. Fergon, insulin, hydrocerin cream, Januvia, Lasix, Lipitor, Lopressor, morphine, Nephro-Maribel, Nitro-Bid, Norvasc, Protonix, Ultram, vitamin B12, Xanax and Zofran. PHYSICAL EXAMINATION: VITAL SIGNS: She has a 97.2 temperature, 89 pulse, 140/77 blood pressure, 16 respiratory rate and 100% O2 sat on room air. HEENT: Head is atraumatic, normocephalic. HEART: Regular rate. LUNGS: Decreased breath sounds but clear. ABDOMEN: Soft. EXTREMITIES: Left foot has got some gangrenous toes, is going for transmetatarsal tomorrow for poor peripheral vascular disease. LABORATORY DATA: She has 11 white count, 10.6 hemoglobin, 32.5 hematocrit with 335,000 platelets. She has 138 sodium, potassium is 3.9, BUN creatinine 0.9, GFR is greater than 60, sugar is 135. Calcium is 9. Total bili is 0.5, AST is 35, ALT is 28, alk phos 98, total protein is 6.7. Overall, she is doing pretty well. She understands the situation. I will put a call out to Cardiology about when to stop the Effient, she is off the Eliquis. Rick Chisholm DO MTDD
--- NOTE | 2018-07-09 12:15 | CP.PCM.PN ---
Subjective - Date & Time of Evaluation Date of Evaluation: 07/09/18 Time of Evaluation: 09:50 - Subjective Subjective: No increased pain in the left foot, no fevers. Objective - Vital Signs/Intake and Output Vital Signs (last 24 hours): Temp Pulse Resp BP Pulse Ox 98.5 F 84 20 150/72 95 07/07/18 16:00 07/07/18 17:20 07/07/18 16:00 07/08/18 09:40 07/07/18 16:00 - Medications Medications: Current Medications Alprazolam (Xanax) 0.25 mg PO BID PRN; Protocol PRN Reason: Anxiety Stop: 07/13/18 11:46 Amlodipine Besylate (Norvasc) [address] [facility]; Protocol Last Admin: 07/08/18 09:40 Dose: 5 mg Apixaban (Eliquis) 2.[address] [facility]; Protocol Last Admin: 06/29/18 17:39 Dose: 2.5 mg Atorvastatin Calcium (Lipitor) [address] [facility]; Protocol Last Admin: 07/07/18 17:19 Dose: 40 mg Cyanocobalamin (Vitamin B12 1000 Mcg Tab) 1,[address] [facility]; Protocol Last Admin: 07/08/18 09:40 Dose: 1,000 mcg Ferrous Gluconate (Fergon) [address] [facility]; Protocol Last Admin: 07/08/18 09:38 Dose: 324 mg Furosemide (Lasix) [address] [facility] Last Admin: 07/08/18 09:39 Dose: 20 mg Insulin Human Regular (Humulin R Med) [address] [facility]; Protocol Last Admin: 07/08/18 11:47 Dose: Not Given Losartan Potassium (Cozaar) [address] [facility]; Protocol Last Admin: 07/08/18 09:38 Dose: 100 mg Metoprolol Tartrate (Lopressor) 25 mg PO 0800,1800 [facility]; Protocol Last Admin: 07/08/18 08:41 Dose: 25 mg Morphine Sulfate (Morphine) 1 mg IVP Q3H PRN; Protocol PRN Reason: Pain, severe (8-10) Last Admin: 07/05/18 21:35 Dose: 1 mg Multi-Ingredient Cream (Hydrocerin Cream) [address] [facility]; Protocol Last Admin: 07/08/18 09:39 Dose: 1 applic Nitroglycerin (Nitro-Bid 2% Oint) 2 ea TOP 0000,0600,1200,1800 [facility]; Protocol Last Admin: 07/08/18 11:47 Dose: 2 ea Ondansetron HCl (Zofran Inj) 4 mg IVP Q6H PRN; Protocol PRN Reason: Nausea/Vomiting Pantoprazole Sodium (Protonix Ec Tab) 40 mg PO 0600 [facility]; Protocol Last Admin: 07/08/18 06:05 Dose: 40 mg Prasugrel (Effient) 10 mg PO DAILY [facility]; Protocol Last Admin: 07/08/18 11:46 Dose: 10 mg Sitagliptin Phosphate (Januvia) 50 mg PO DAILY [facility]; Protocol Last Admin: 07/08/18 09:39 Dose: 50 mg Tramadol HCl (Ultram) 50 mg PO Q8H PRN PRN Reason: Pain, severe (8-10) Last Admin: 07/07/18 10:42 Dose: 50 mg Vitamin B Complex/Vit C/Folic Acid (Nephro-Maribel) 1 tab PO 0800 [facility]; Protocol Last Admin: 07/08/18 08:41 Dose: 1 tab Zolpidem Tartrate (Ambien) 5 mg PO HS [facility]; Protocol Last Admin: 07/07/18 21:06 Dose: 5 mg - Labs Labs: 07/08/18 06:00 07/08/18 06:00 PT 17.1 SECONDS (9.4-12.5) H 06/30/18 04:05 INR 1.49 06/30/18 04:05 APTT 29.9 Seconds (25.1-36.5) 07/08/18 06:00 - Constitutional Appears: Chronically Ill - Head Exam Head Exam: NORMAL INSPECTION - Neck Exam Neck Exam: absent: Meningismus - Respiratory Exam Respiratory Exam: Decreased Breath Sounds - Cardiovascular Exam Cardiovascular Exam: +S1, +S2 - GI/Abdominal Exam GI & Abdominal Exam: Soft. absent: Tenderness - Extremities Exam Additional comments: left foot feels cold, with dusky discoloration of the toes Assessment and Plan - Assessment and Plan (Free Text) Plan: Assessment S/P treatment with antibiotics of left foot cellulitis in this patient with left foot ischemic changes with PVD S/P left lower extremity angioplasty DVT chronic CHF CAD S/P PCI Plan continue to monitor off antibiotics since she is at risk for healthcare- associated infections patient will get TMA tomorrow discussed with Dr. Chisholm
[2018-07-10] MEDS: Pantoprazole 40 mg EC Tab PO SCH (06:13)
[2018-07-10] MEDS: Nitroglycerin 2% Ointment Foilpak UD TOP SCH ×4 (06:14→17:23)
[2018-07-10] MEDS: Insulin Reg-MEDIUM-Coverage SC SCH ×4 (06:59→21:28)
[2018-07-10] MEDS: Multivitamin Vitamin B Complex (Nephro-Vite) Tab PO SCH (09:00)
--- NOTE | 2018-07-10 09:26 | PN ---
DATE: 07/10/2018 CARDIOLOGY FOLLOWUP The patient has no pain in the lower extremities. I was asked to evaluate her for possible amputation of the lower digits. The patient is chest pain free. PHYSICAL EXAMINATION, : VITAL SIGNS: Blood pressure is 163/85, the heart rate is in the 90s. NECK: Negative JVD. LUNGS: Without rales. HEART: Reveals S1, S2. EXTREMITIES: Gangrenous 2 digits in the lower extremities. LABORATORY DATA: Hemoglobin is 11.6. Chemistries: BUN and creatinine are unremarkable. Sugar is 147. IMPRESSION: 1. Stable post [id number] myocardial infarction. 2. Stable post multivessel coronary artery disease, percutaneous transluminal coronary angioplasty. 3. Status post percutaneous transluminal angioplasty of the occluded vessels in the left lower extremity. 4. Gangrenous toes. 5. Diabetes mellitus. 6. Severe peripheral vascular disease. PLAN: Given these findings, the patient cannot have surgery today. The patient is on Eliquis as well as Effient. The risk of bleeding would be very high. I have discussed this with Dr. Mcintosh as well as Dr. Chisholm. They will evaluate her for possible surgery in the next few weeks as an outpatient to see whether this can be done without stopping her Effient. Lei Rivera MD
--- NOTE | 2018-07-10 10:06 | CP.PCM.PN ---
Subjective - Date & Time of Evaluation Date of Evaluation: 07/10/18 Time of Evaluation: 10:01 - Subjective Subjective: Podiatry progress note for Dr. Mcintosh, 72 y/o female patient was seen and evaluated at bedside with Dr. Mcintosh. Patient's family present at bedside as well. Patient and patient's son made aware that surgery will be cancelled at this time until further notice as patient to be re-started on Plavix due to hx of NSTEMI upon arrival to the hospital. Patient and family demonstrated understanding and are in agreement. Objective - Vital Signs/Intake and Output Vital Signs (last 24 hours): Temp Pulse Resp BP Pulse Ox 98 F 90 20 160/85 H 95 07/10/18 06:47 07/10/18 06:47 07/10/18 06:47 07/10/18 07:15 07/10/18 06:47 Intake and Output: 07/10/18 07/10/18 06:59 18:59 Intake Total 420 Balance 420 - Medications Medications: Current Medications Alprazolam (Xanax) 0.25 mg PO BID PRN; Protocol PRN Reason: Anxiety Stop: 07/13/18 11:46 Amlodipine Besylate (Norvasc) 5 mg PO DAILY [facility]; Protocol Last Admin: 07/09/18 09:25 Dose: 5 mg Apixaban (Eliquis) 2.5 mg PO BID [facility]; Protocol Last Admin: 06/29/18 17:39 Dose: 2.5 mg Atorvastatin Calcium (Lipitor) 40 mg PO DIN [facility]; Protocol Last Admin: 07/09/18 17:30 Dose: 40 mg Cyanocobalamin (Vitamin B12 1000 Mcg Tab) 1,000 mcg PO DAILY [facility]; Protocol Last Admin: 07/09/18 09:25 Dose: 1,000 mcg Ferrous Gluconate (Fergon) 324 mg PO TID [facility]; Protocol Last Admin: 07/09/18 17:28 Dose: 324 mg Furosemide (Lasix) 20 mg PO DAILY [facility] Last Admin: 07/09/18 09:24 Dose: 20 mg Insulin Human Regular (Humulin R Med) 0 units SC ACHS [facility]; Protocol Last Admin: 07/10/18 06:59 Dose: Not Given Losartan Potassium (Cozaar) 100 mg PO DAILY [facility]; Protocol Last Admin: 07/09/18 09:23 Dose: 100 mg Metoprolol Tartrate (Lopressor) 25 mg PO 0800,1800 [facility]; Protocol Last Admin: 07/10/18 08:25 Dose: Not Given Morphine Sulfate (Morphine) 1 mg IVP Q3H PRN; Protocol PRN Reason: Pain, severe (8-10) Last Admin: 07/05/18 21:35 Dose: 1 mg Multi-Ingredient Cream (Hydrocerin Cream) 0 ea TOP BID [facility]; Protocol Last Admin: 07/09/18 17:29 Dose: 1 applic Nitroglycerin (Nitro-Bid 2% Oint) 2 ea TOP 0000,0600,1200,1800 [facility]; Protocol Last Admin: 07/10/18 06:14 Dose: 2 ea Ondansetron HCl (Zofran Inj) 4 mg IVP Q6H PRN; Protocol PRN Reason: Nausea/Vomiting Pantoprazole Sodium (Protonix Ec Tab) 40 mg PO 0600 [facility]; Protocol Last Admin: 07/10/18 06:13 Dose: Not Given Prasugrel (Effient) 10 mg PO DAILY [facility]; Protocol Last Admin: 07/09/18 09:23 Dose: 10 mg Sitagliptin Phosphate (Januvia) 50 mg PO DAILY [facility]; Protocol Last Admin: 07/09/18 09:23 Dose: 50 mg Tramadol HCl (Ultram) 50 mg PO Q8H PRN PRN Reason: Pain, severe (8-10) Last Admin: 07/09/18 21:25 Dose: 50 mg Vitamin B Complex/Vit C/Folic Acid (Nephro-Maribel) 1 tab PO 0800 [facility]; Protocol Last Admin: 07/10/18 09:00 Dose: 1 tab Zolpidem Tartrate (Ambien) 5 mg PO HS [facility]; Protocol Last Admin: 07/09/18 21:25 Dose: 5 mg - Labs Labs: 07/09/18 06:00 07/09/18 06:00 PT 17.1 SECONDS (9.4-12.5) H 06/30/18 04:05 INR 1.49 06/30/18 04:05 APTT 29.9 Seconds (25.1-36.5) 07/08/18 06:00 - Constitutional Appears: Well, Non-toxic, No Acute Distress - Head Exam Head Exam: ATRAUMATIC, NORMOCEPHALIC - Extremities Exam Additional comments: Bilateral lower extremity exam: Vascular: DP/PT nonpalpable B/L. Temperature gradient warm to cool on R, warm to cold on L. Cap refill delayed > 3 secs to all digits, no edema noted. Pinpoint erythematous mottled lesions indicative of ischemic changes noted on the dorsal aspect of the left foot, no signs of infection at this time, only dry gangrene noted, no signs of wet gangrene Left foot- Doppler shows patent posterior tibial artery, however, no sounds heard to the dorsum of the foot Neuro: protective sensation grossly intact Derm: no IDM, no open lesions, xerosis and peeling of skin noted B/L, L>R. Deep tissue injury to the heel on the left - scab present. gangrenous changes noted to the third digits on the L side. MSK: moderate pain on palpation to the left foot. - Neurological Exam Neurological Exam: Alert, Awake, Oriented x3 - Psychiatric Exam Psychiatric exam: Normal Affect, Normal Mood Assessment and Plan - Assessment and Plan (Free Text) Assessment: 72 y/o female seen at bedside for left foot with vascular insufficiency, unstageable ulcer to left heel, L 3rd digit gangrenous changes Plan: Patient seen and evaluated at the bedside with Dr. Mcintosh Labs and vitals reviewed - afebrile, absent leukocytosis No dressings applied, open to air Patient evaluated by Cardiology, Dr. Rivera, who would like to re-start Plavix for the patient Patient surgery cancelled at this time as patient is on Plavix and will not be taken to the OR, re-evaluation in 2-3 months as per Cardiology request Podiatry had extensive conversation with Dr. Chisholm and Dr. Rivera- patient will be discharged home at this time Patient will follow up with Dr. Mcintosh [facility], first appointment Tuesday07/17/18 In length conversation with patient's son, who is in agreement with current plan Patient does not need a dressing to the left foot at this time Patient and family to apply moisturized to bilateral feet, and to avoid digits while applying Patient does not have an infection or wet gangrene at this time Podiatry will continue to follow the patient
[2018-07-10] MEDS: Hydrocerin(120 gm) TOP SCH ×2 (10:20→17:23)
--- NOTE | 2018-07-10 12:29 | CP.PCM.PN ---
Subjective - Date & Time of Evaluation Date of Evaluation: 07/10/18 Time of Evaluation: 09:35 - Subjective Subjective: Patient was supposed to have surgery today but it is being canceled because patient is to be placed on Plavix. No increase in foot pain, no fevers. Objective - Vital Signs/Intake and Output Vital Signs (last 24 hours): Temp Pulse Resp BP Pulse Ox 97.2 F L 89 16 139/72 100 07/08/18 16:00 07/08/18 16:00 07/08/18 16:00 07/09/18 09:25 07/08/18 16:00 - Medications Medications: Current Medications Alprazolam (Xanax) 0.25 mg PO BID PRN; Protocol PRN Reason: Anxiety Stop: 07/13/18 11:46 Amlodipine Besylate (Norvasc) 5 mg PO DAILY [facility]; Protocol Last Admin: 07/09/18 09:25 Dose: 5 mg Apixaban (Eliquis) 2.5 mg PO BID [facility]; Protocol Last Admin: 06/29/18 17:39 Dose: 2.5 mg Atorvastatin Calcium (Lipitor) 40 mg PO DIN [facility]; Protocol Last Admin: 07/08/18 17:19 Dose: 40 mg Cyanocobalamin (Vitamin B12 1000 Mcg Tab) 1,000 mcg PO DAILY [facility]; Protocol Last Admin: 07/09/18 09:25 Dose: 1,000 mcg Ferrous Gluconate (Fergon) 324 mg PO TID [facility]; Protocol Last Admin: 07/09/18 09:23 Dose: 324 mg Furosemide (Lasix) 20 mg PO DAILY [facility] Last Admin: 07/09/18 09:24 Dose: 20 mg Insulin Human Regular (Humulin R Med) 0 units SC ACHS [facility]; Protocol Last Admin: 07/09/18 06:58 Dose: Not Given Losartan Potassium (Cozaar) 100 mg PO DAILY [facility]; Protocol Last Admin: 07/09/18 09:23 Dose: 100 mg Metoprolol Tartrate (Lopressor) 25 mg PO 0800,1800 [facility]; Protocol Last Admin: 07/09/18 09:24 Dose: 25 mg Morphine Sulfate (Morphine) 1 mg IVP Q3H PRN; Protocol PRN Reason: Pain, severe (8-10) Last Admin: 07/05/18 21:35 Dose: 1 mg Multi-Ingredient Cream (Hydrocerin Cream) 0 ea TOP BID [facility]; Protocol Last Admin: 07/09/18 09:23 Dose: 1 applic Nitroglycerin (Nitro-Bid 2% Oint) 2 ea TOP 0000,0600,1200,1800 [facility]; Protocol Last Admin: 07/09/18 11:11 Dose: 2 ea Ondansetron HCl (Zofran Inj) 4 mg IVP Q6H PRN; Protocol PRN Reason: Nausea/Vomiting Pantoprazole Sodium (Protonix Ec Tab) 40 mg PO 0600 [facility]; Protocol Last Admin: 07/09/18 05:26 Dose: 40 mg Prasugrel (Effient) 10 mg PO DAILY [facility]; Protocol Last Admin: 07/09/18 09:23 Dose: 10 mg Sitagliptin Phosphate (Januvia) 50 mg PO DAILY [facility]; Protocol Last Admin: 07/09/18 09:23 Dose: 50 mg Tramadol HCl (Ultram) 50 mg PO Q8H PRN PRN Reason: Pain, severe (8-10) Last Admin: 07/08/18 21:12 Dose: 50 mg Vitamin B Complex/Vit C/Folic Acid (Nephro-Maribel) 1 tab PO 0800 [facility]; Protocol Last Admin: 07/09/18 09:24 Dose: 1 tab Zolpidem Tartrate (Ambien) 5 mg PO HS [facility]; Protocol Last Admin: 07/08/18 21:12 Dose: 5 mg - Labs Labs: 07/09/18 06:00 07/09/18 06:00 PT 17.1 SECONDS (9.4-12.5) H 06/30/18 04:05 INR 1.49 06/30/18 04:05 APTT 29.9 Seconds (25.1-36.5) 07/08/18 06:00 - Constitutional Appears: Chronically Ill - Head Exam Head Exam: NORMAL INSPECTION - Respiratory Exam Respiratory Exam: Decreased Breath Sounds - Cardiovascular Exam Cardiovascular Exam: +S1, +S2 - GI/Abdominal Exam GI & Abdominal Exam: Soft. absent: Tenderness - Extremities Exam Additional comments: left foot with dusky discoloration of toes, no tenderness or swelling noted Assessment and Plan - Assessment and Plan (Free Text) Plan: Assessment S/P treatment with antibiotics of left foot cellulitis in this patient with left foot ischemic changes with PVD S/P left lower extremity angioplasty DVT chronic CHF CAD S/P PCI Plan continue to monitor off antibiotics since she is at risk for healthcare- associated infections patient was supposed to be getting TMA today but deferred because patient is to be placed on Plavix discussed with Dr. Chisholm - awaiting further plans of surgery
--- NOTE | 2018-07-10 12:42 | DS ---
SUMMARY: There was supposed to be a surgery of transmetatarsal, but Dr. Rivera, the traffic maintenance supervisor came in and said he wants to hold off for two months due to the recent cardiac cath and he does not want her to have an IN. I went over all the medications with the nurse and the son. She will be discharged today. I will see her in a house call tomorrow. She has a leg peripheral vascular disease, coronary artery disease, left toe gangrenous, depression and I will be seeing her in house call tomorrow and prescriptions were written out and given to the nurse, discussed with the son and Dr. Rivera, the traffic maintenance supervisor and the patient. Rick Chisholm DO MTDD
--- NOTE | 2018-07-10 15:53 | CP.PCM.PN ---
Subjective - Date & Time of Evaluation Date of Evaluation: 07/10/18 Time of Evaluation: 15:53 - Subjective Subjective: Nephrology Consultation Note: Assessment: Stable Acute Kidney Injury (N17.9) resolved iron def anemia, CHF, cellulitis CAD s/p stent and PVD 8 mm left non obs calculus hypokalemia Plan No acute need for renal replacement therapy at this time. Hypertension control with meds as ordered. Maintain hemodynamics stable. Avoid hypotension. Patient on losartan Monitor Input/Output, daily weights and renal function with basic metabolic panel continue with iron and MVI CAD/CHF management as per cardiology. resume low dose diuretics with KCL 20 meq/day, as tolerated by BP. PRBC as needed. supplement lytes as needed. ID following Dose meds/antibiotics for GFR >60. Glycemic control Further work up/management as per primary team Thanks for allowing me to participate in care of your patient. Will follow patient with you further prn basis. . Please call if any Qs Dr Cassius Hernández Office: [phone] Chief Complaint; leg pain Reason for consult: Acute Kidney Injury follow up HPI: Pt is a 72 F with hx of CHF, hypertension (years) presented with complaints of left foot cellulitis and found to have PVD s/p interevention and CAD s/p stent. also had BARTOLO with peaked cr 1.3. anemia. left 8 mm non obs calculus. pt now on TRCU and seen for BARTOLO follow up Denies OTC/herbal meds or NSAIDs No recent iodinated contrast exposure. No obvious episodes of low BP. ROS: Cardiovascular: No chest pain. Pulmonary: No shortness of breath Gastrointestinal: denies abdominal pain No nausea. No vomiting. Genitourinary: No pain while urinating. Denies blood in urine. All other negative except as mentioned in HPI. c/o leg pain. ? for foot surgery Physical Examination: General Appearance: Comfortable, in no acute respiratory distress, co-operative . Vitals reviewed and noted as below Head; Atraumatic, normocephalic ENT: no ulcers no thrush. Tongue is midline. Oropharynx: no rash or ulcers. EYES: Pupils are equal, round and reactive to light accommodation. Eye muscles and extraocular movement intact. Sclera is anicteric. Neck; supple no lymphadenopathy, no thyromegaly or bruit Lungs: Normal respiratory rate/effort. Breath sounds bilateral equal and clear Heart: Normal rate. s1s2 normal. No rub or gallop. Extremities: trace edema. No varicose veins. Neurological: Patient is alert, awake and oriented to person, place and time. No focal deficit. Strength bilateral appropriate and equal Skin: Warm and dry. Normal turgor. No rash. Palpitation: Normal elasticity for age Abdomen: Abdomen is soft. Bowel sounds +. There is no abdominal tenderness, no guarding/rigidity no organomegaly Psych: limited insight and normal affect/mood MSK: no joint tenderness or swelling. Digits and nails normal, no deformity : kidney or bladder not palpable Labs/imaging reviewed. Past medical history, past surgical history, family history, social history, allergy reviewed and noted as below Family hx: no hx of CKD. Rest non-contributory Objective - Vital Signs/Intake and Output Vital Signs (last 24 hours): Temp Pulse Resp BP Pulse Ox 98 F 90 20 130/69 95 07/10/18 06:47 07/10/18 06:47 07/10/18 06:47 07/10/18 10:21 07/10/18 06:47 Intake and Output: 07/10/18 07/10/18 06:59 18:59 Intake Total 420 Balance 420 - Medications Medications: Current Medications Alprazolam (Xanax) 0.25 mg PO BID PRN; Protocol PRN Reason: Anxiety Stop: 07/13/18 11:46 Amlodipine Besylate (Norvasc) 5 mg PO DAILY [facility]; Protocol Last Admin: 07/10/18 10:19 Dose: 5 mg Apixaban (Eliquis) 2.5 mg PO BID [facility]; Protocol Last Admin: 06/29/18 17:39 Dose: 2.5 mg Atorvastatin Calcium (Lipitor) 40 mg PO DIN [facility]; Protocol Last Admin: 07/09/18 17:30 Dose: 40 mg Cyanocobalamin (Vitamin B12 1000 Mcg Tab) 1,000 mcg PO DAILY [facility]; Protocol Last Admin: 07/10/18 10:21 Dose: 1,000 mcg Ferrous Gluconate (Fergon) 324 mg PO TID [facility]; Protocol Last Admin: 07/10/18 14:43 Dose: 324 mg Furosemide (Lasix) 20 mg PO DAILY [facility] Last Admin: 07/10/18 10:21 Dose: 20 mg Insulin Human Regular (Humulin R Med) 0 units SC ACHS [facility]; Protocol Last Admin: 07/10/18 12:27 Dose: Not Given Losartan Potassium (Cozaar) 100 mg PO DAILY [facility]; Protocol Last Admin: 07/10/18 10:19 Dose: 100 mg Metoprolol Tartrate (Lopressor) 25 mg PO 0800,1800 [facility]; Protocol Last Admin: 07/10/18 08:25 Dose: Not Given Morphine Sulfate (Morphine) 1 mg IVP Q3H PRN; Protocol PRN Reason: Pain, severe (8-10) Last Admin: 07/05/18 21:35 Dose: 1 mg Multi-Ingredient Cream (Hydrocerin Cream) 0 ea TOP BID [facility]; Protocol Last Admin: 07/10/18 10:20 Dose: 1 applic Nitroglycerin (Nitro-Bid 2% Oint) 2 ea TOP 0000,0600,1200,1800 [facility]; Protocol Last Admin: 07/10/18 12:27 Dose: Not Given Ondansetron HCl (Zofran Inj) 4 mg IVP Q6H PRN; Protocol PRN Reason: Nausea/Vomiting Pantoprazole Sodium (Protonix Ec Tab) 40 mg PO 0600 [facility]; Protocol Last Admin: 07/10/18 06:13 Dose: Not Given Prasugrel (Effient) 10 mg PO DAILY [facility]; Protocol Last Admin: 07/10/18 10:20 Dose: 10 mg Sitagliptin Phosphate (Januvia) 50 mg PO DAILY [facility]; Protocol Last Admin: 07/10/18 10:21 Dose: 50 mg Tramadol HCl (Ultram) 50 mg PO Q8H PRN PRN Reason: Pain, severe (8-10) Last Admin: 07/09/18 21:25 Dose: 50 mg Vitamin B Complex/Vit C/Folic Acid (Nephro-Maribel) 1 tab PO 0800 [facility]; Protocol Last Admin: 07/10/18 09:00 Dose: 1 tab Zolpidem Tartrate (Ambien) 5 mg PO HS [facility]; Protocol Last Admin: 07/09/18 21:25 Dose: 5 mg - Labs Labs: 07/09/18 06:00 07/09/18 06:00 PT 17.1 SECONDS (9.4-12.5) H 06/30/18 04:05 INR 1.49 06/30/18 04:05 APTT 29.9 Seconds (25.1-36.5) 07/08/18 06:00
[2018-07-11] MEDS: Nitroglycerin 2% Ointment Foilpak UD TOP SCH ×3 (00:40→11:58)
[2018-07-11] MEDS: Pantoprazole 40 mg EC Tab PO SCH (05:50)
[2018-07-11 06:20] VITALS: RESP 16; TEMP 98; O2SAT 96
[2018-07-11] MEDS: Insulin Reg-MEDIUM-Coverage SC SCH ×2 (06:32→11:57)
[2018-07-11] MEDS: Multivitamin Vitamin B Complex (Nephro-Vite) Tab PO SCH (08:50)
[2018-07-11] MEDS: Hydrocerin(120 gm) TOP SCH (10:20)
[2018-07-11 10:21] VITALS: BP 140/80; PULSE 80
--- NOTE | 2018-07-11 12:11 | CP.PCM.PN ---
Subjective - Date & Time of Evaluation Date of Evaluation: 07/11/18 Time of Evaluation: 12:11 - Subjective Subjective: Nephrology Consultation Note: Assessment: Stable Acute Kidney Injury (N17.9) resolved iron def anemia, CHF, cellulitis CAD s/p stent and PVD 8 mm left non obs calculus hypokalemia Plan No acute need for renal replacement therapy at this time. Hypertension control with meds as ordered. Maintain hemodynamics stable. Avoid hypotension. Patient on losartan. increased norvasc to 10 mg/day Monitor Input/Output, daily weights and renal function with basic metabolic panel continue with iron and MVI CAD/CHF management as per cardiology. resume low dose diuretics with KCL 20 meq/day, as tolerated by BP. PRBC as needed. supplement lytes as needed. ID following Dose meds/antibiotics for GFR >60. Glycemic control Further work up/management as per primary team Thanks for allowing me to participate in care of your patient. Will follow patient with you further prn basis. . Please call if any Qs Dr Cassius Hernádnez Office: [phone] Chief Complaint; leg pain Reason for consult: Acute Kidney Injury follow up HPI: Pt is a 72 F with hx of CHF, hypertension (years) presented with complaints of left foot cellulitis and found to have PVD s/p interevention and CAD s/p stent. also had BARTOLO with peaked cr 1.3. anemia. left 8 mm non obs calcu yobany. pt now on TRCU and seen for BARTOLO follow up Denies OTC/herbal meds or NSAIDs No recent iodinated contrast exposure. No obvious episodes of low BP. ROS: Cardiovascular: No chest pain. Pulmonary: No shortness of breath Gastrointestinal: denies abdominal pain No nausea. No vomiting. Genitourinary: No pain while urinating. Denies blood in urine. All other negative except as mentioned in HPI. c/o leg pain. ? for foot surgery Physical Examination: General Appearance: Comfortable, in no acute respiratory distress, co-operative . Vitals reviewed and noted as below Head; Atraumatic, normocephalic ENT: no ulcers no thrush. Tongue is midline. Oropharynx: no rash or ulcers. EYES: Pupils are equal, round and reactive to light accommodation. Eye muscles and extraocular movement intact. Sclera is anicteric. Neck; supple no lymphadenopathy, no thyromegaly or bruit Lungs: Normal respiratory rate/effort. Breath sounds bilateral equal and clear Heart: Normal rate. s1s2 normal. No rub or gallop. Extremities: trace edema. No varicose veins. Neurological: Patient is alert, awake and oriented to person, place and time. No focal deficit. Strength bilateral appropriate and equal Skin: Warm and dry. Normal turgor. No rash. Palpitation: Normal elasticity for age Abdomen: Abdomen is soft. Bowel sounds +. There is no abdominal tenderness, no guarding/rigidity no organomegaly Psych: limited insight and normal affect/mood MSK: no joint tenderness or swelling. Digits and nails normal, no deformity : kidney or bladder not palpable Labs/imaging reviewed. Past medical history, past surgical history, family history, social history, a llergy reviewed and noted as below Family hx: no hx of CKD. Rest non-contributory Objective - Vital Signs/Intake and Output Vital Signs (last 24 hours): Temp Pulse Resp BP Pulse Ox 98 F 80 16 140/80 96 07/11/18 06:00 07/11/18 08:55 07/11/18 06:00 07/11/18 10:17 07/11/18 06:00 Intake and Output: 07/11/18 07/11/18 06:59 18:59 Intake Total 420 Balance 420 - Medications Medications: Current Medications Alprazolam (Xanax) 0.25 mg PO BID PRN; Protocol PRN Reason: Anxiety Stop: 07/13/18 11:46 Amlodipine Besylate (Norvasc) 10 mg PO DAILY [facility]; Protocol Last Admin: 07/11/18 10:17 Dose: 10 mg Apixaban (Eliquis) 2.5 mg PO BID [facility]; Protocol Last Admin: 06/29/18 17:39 Dose: 2.5 mg Atorvastatin Calcium (Lipitor) 40 mg PO DIN [facility]; Protocol Last Admin: 07/10/18 17:22 Dose: 40 mg Cyanocobalamin (Vitamin B12 1000 Mcg Tab) 1,000 mcg PO DAILY [facility]; Protocol Last Admin: 07/11/18 10:14 Dose: 1,000 mcg Ferrous Gluconate (Fergon) 324 mg PO TID [facility]; Protocol Last Admin: 07/11/18 10:14 Dose: 324 mg Furosemide (Lasix) 20 mg PO DAILY [facility] Last Admin: 07/11/18 10:15 Dose: 20 mg Insulin Human Regular (Humulin R Med) 0 units SC ACHS [facility]; Protocol Last Admin: 07/11/18 11:57 Dose: 1 unit Losartan Potassium (Cozaar) 100 mg PO DAILY [facility]; Protocol Last Admin: 07/11/18 10:13 Dose: 100 mg Metoprolol Tartrate (Lopressor) 25 mg PO 0800,1800 [facility]; Protocol Last Admin: 07/11/18 08:55 Dose: 25 mg Morphine Sulfate (Morphine) 1 mg IVP Q3H PRN; Protocol PRN Reason: Pain, severe (8-10) Last Admin: 07/05/18 21:35 Dose: 1 mg Multi-Ingredient Cream (Hydrocerin Cream) 0 ea TOP BID [facility]; Protocol Last Admin: 07/11/18 10:20 Dose: 1 applic Nitroglycerin (Nitro-Bid 2% Oint) 2 ea TOP 0000,0600,1200,1800 [facility]; Protocol Last Admin: 07/11/18 11:58 Dose: 2 ea Ondansetron HCl (Zofran Inj) 4 mg IVP Q6H PRN; Protocol PRN Reason: Nausea/Vomiting Pantoprazole Sodium (Protonix Ec Tab) 40 mg PO 0600 [facility]; Protocol Last Admin: 07/11/18 05:50 Dose: 40 mg Prasugrel (Effient) 10 mg PO DAILY [facility]; Protocol Last Admin: 07/11/18 10:14 Dose: 10 mg Sitagliptin Phosphate (Januvia) 50 mg PO DAILY [facility]; Protocol Last Admin: 07/11/18 10:15 Dose: 50 mg Tramadol HCl (Ultram) 50 mg PO Q8H PRN PRN Reason: Pain, severe (8-10) Last Admin: 07/10/18 21:33 Dose: 50 mg Vitamin B Complex/Vit C/Folic Acid (Nephro-Maribel) 1 tab PO 0800 [facility]; Protocol Last Admin: 07/11/18 08:50 Dose: 1 tab Zolpidem Tartrate (Ambien) 5 mg PO HS [facility]; Protocol Last Admin: 07/10/18 21:32 Dose: 5 mg - Labs Labs: 07/09/18 06:00 07/09/18 06:00 PT 17.1 SECONDS (9.4-12.5) H 06/30/18 04:05 INR 1.49 06/30/18 04:05 APTT 29.9 Seconds (25.1-36.5) 07/08/18 06:00
--- NOTE | 2018-07-11 12:47 | DS ---
HISTORY OF PRESENT ILLNESS: She has very bad circulation of the lower extremities, the left leg and the fourth toe. So she had some gangrene and was supposed to be a transmetatarsal amputation, but Cardiology says that none at this time due to her bad heart. She is status post stents placed in the left leg, also 2 cardiac catheterization with stent placements. She is doing well today the fourth,the toes in the left foot are gangrenous and we will probably order amputate which might be a better way to do a transmetatarsal amputation. She is happy about that there is no surgery. She should be discharged today, and hopefully she will keep her feet as best she can. We will continue to watch on the outpatient, being discharged today. PHYSICAL EXAMINATION: VITAL SIGNS: She has a 98 temperature, 83 pulse, 140/84 blood pressure, 16 respiratory rate, and 96% O2 sat on room air. HEENT: Head is atraumatic, normocephalic. HEART: Regular rate. LUNGS: Clear to auscultation. ABDOMEN: Soft. EXTREMITIES: Left foot has flat toes. ASSESSMENT AND PLAN: I discussed with the son. Prescriptions were written. Follow up on house call on Tuesday. Rick Chisholm DO
--- NOTE | 2018-07-11 13:12 | CP.PCM.PN ---
<Luis EduardoGeovanna - Last Filed: 07/11/18 14:47> Subjective - Date & Time of Evaluation Date of Evaluation: 07/11/18 Time of Evaluation: 13:09 - Subjective Subjective: Podiatry progress note for Dr. Bojorquez, 72 y/o female patient was seen and evaluated at bedside. Patient's family present at bedside as well. Patient is seen resting comfortably in bed and in no acute distress. Patient and family are aware that no dressing is to be applied to the left lower extremity at this time. Objective - Vital Signs/Intake and Output Vital Signs (last 24 hours): Temp Pulse Resp BP Pulse Ox 98 F 80 16 140/80 96 07/11/18 06:00 07/11/18 08:55 07/11/18 06:00 07/11/18 10:17 07/11/18 06:00 Intake and Output: 07/11/18 07/11/18 06:59 18:59 Intake Total 420 Balance 420 - Medications Medications: Current Medications Alprazolam (Xanax) 0.25 mg PO BID PRN; Protocol PRN Reason: Anxiety Stop: 07/13/18 11:46 Amlodipine Besylate (Norvasc) 10 mg PO DAILY [facility]; Protocol Last Admin: 07/11/18 10:17 Dose: 10 mg Apixaban (Eliquis) 2.5 mg PO BID [facility]; Protocol Last Admin: 06/29/18 17:39 Dose: 2.5 mg Atorvastatin Calcium (Lipitor) 40 mg PO DIN [facility]; Protocol Last Admin: 07/10/18 17:22 Dose: 40 mg Cyanocobalamin (Vitamin B12 1000 Mcg Tab) 1,000 mcg PO DAILY [facility]; Protocol Last Admin: 07/11/18 10:14 Dose: 1,000 mcg Ferrous Gluconate (Fergon) 324 mg PO TID [facility]; Protocol Last Admin: 07/11/18 10:14 Dose: 324 mg Furosemide (Lasix) 20 mg PO DAILY [facility] Last Admin: 07/11/18 10:15 Dose: 20 mg Insulin Human Regular (Humulin R Med) 0 units SC ACHS [facility]; Protocol Last Admin: 07/11/18 11:57 Dose: 1 unit Losartan Potassium (Cozaar) 100 mg PO DAILY [facility]; Protocol Last Admin: 07/11/18 10:13 Dose: 100 mg Metoprolol Tartrate (Lopressor) 25 mg PO 0800,1800 [facility]; Protocol Last Admin: 07/11/18 08:55 Dose: 25 mg Morphine Sulfate (Morphine) 1 mg IVP Q3H PRN; Protocol PRN Reason: Pain, severe (8-10) Last Admin: 07/05/18 21:35 Dose: 1 mg Multi-Ingredient Cream (Hydrocerin Cream) 0 ea TOP BID [facility]; Protocol Last Admin: 07/11/18 10:20 Dose: 1 applic Nitroglycerin (Nitro-Bid 2% Oint) 2 ea TOP 0000,0600,1200,1800 [facility]; Protocol Last Admin: 07/11/18 11:58 Dose: 2 ea Ondansetron HCl (Zofran Inj) 4 mg IVP Q6H PRN; Protocol PRN Reason: Nausea/Vomiting Pantoprazole Sodium (Protonix Ec Tab) 40 mg PO 0600 [facility]; Protocol Last Admin: 07/11/18 05:50 Dose: 40 mg Prasugrel (Effient) 10 mg PO DAILY [facility]; Protocol Last Admin: 07/11/18 10:14 Dose: 10 mg Sitagliptin Phosphate (Januvia) 50 mg PO DAILY [facility]; Protocol Last Admin: 07/11/18 10:15 Dose: 50 mg Tramadol HCl (Ultram) 50 mg PO Q8H PRN PRN Reason: Pain, severe (8-10) Last Admin: 07/10/18 21:33 Dose: 50 mg Vitamin B Complex/Vit C/Folic Acid (Nephro-Maribel) 1 tab PO 0800 [facility]; Protocol Last Admin: 07/11/18 08:50 Dose: 1 tab Zolpidem Tartrate (Ambien) 5 mg PO HS [facility]; Protocol Last Admin: 07/10/18 21:32 Dose: 5 mg - Labs Labs: 07/09/18 06:00 07/09/18 06:00 PT 17.1 SECONDS (9.4-12.5) H 06/30/18 04:05 INR 1.49 06/30/18 04:05 APTT 29.9 Seconds (25.1-36.5) 07/08/18 06:00 - Constitutional Appears: Well, Non-toxic, No Acute Distress - Head Exam Head Exam: ATRAUMATIC, NORMOCEPHALIC - Extremities Exam Additional comments: Bilateral lower extremity exam: Vascular: DP/PT nonpalpable B/L. Temperature gradient warm to cool on R, warm to cold on L. Cap refill delayed > 3 secs to all digits, no edema noted. Pinpoint erythematous mottled lesions indicative of ischemic changes noted on the dorsal aspect of the left foot, gangrenous 2nd and 3rd digits, bluish discoloration noted to the left hallux, no signs of infection at this time, only dry gangrene noted, no signs of wet gangrene Neuro: protective sensation grossly intact Derm: no IDM, no open lesions, xerosis and peeling of skin noted B/L, L>R. Deep tissue injury to the heel on the left - scab present. gangrenous changes noted to the hallux, second and third digits on the L side. MSK: moderate pain on palpation to the left foot. - Neurological Exam Neurological Exam: Alert, Awake, Oriented x3 - Psychiatric Exam Psychiatric exam: Normal Affect, Normal Mood Assessment and Plan - Assessment and Plan (Free Text) Assessment: 72 y/o female seen at bedside for left foot with vascular insufficiency, unstageable ulcer to left heel, L 2nd +3rd digit gangrenous changes Plan: Patient seen and evaluated at the bedside with Dr. Mcintosh Labs and vitals reviewed - afebrile, absent leukocytosis Patient and family to apply moisturized to bilateral feet, and to avoid digits while applying Wound dressed with Dry sterile dressing Patient does not have an infection or wet gangrene at this time Podiatry will continue to follow the patient <Romulo Bojorquez - Last Filed: 07/11/18 15:12> Objective - Vital Signs/Intake and Output Vital Signs (last 24 hours): Temp Pulse Resp BP Pulse Ox 98 F 80 16 140/80 96 07/11/18 06:00 07/11/18 08:55 07/11/18 06:00 07/11/18 10:17 07/11/18 06:00 Intake and Output: 07/11/18 07/11/18 06:59 18:59 Intake Total 420 Balance 420 - Medications Medications: Current Medications Alprazolam (Xanax) 0.25 mg PO BID PRN; Protocol PRN Reason: Anxiety Stop: 07/13/18 11:46 Amlodipine Besylate (Norvasc) 10 mg PO DAILY [facility]; Protocol Last Admin: 07/11/18 10:17 Dose: 10 mg Apixaban (Eliquis) 2.5 mg PO BID [facility]; Protocol Last Admin: 06/29/18 17:39 Dose: 2.5 mg Atorvastatin Calcium (Lipitor) 40 mg PO DIN [facility]; Protocol Last Admin: 07/10/18 17:22 Dose: 40 mg Cyanocobalamin (Vitamin B12 1000 Mcg Tab) 1,000 mcg PO DAILY [facility]; Protocol Last Admin: 07/11/18 10:14 Dose: 1,000 mcg Ferrous Gluconate (Fergon) 324 mg PO TID [facility]; Protocol Last Admin: 07/11/18 10:14 Dose: 324 mg Furosemide (Lasix) 20 mg PO DAILY [facility] Last Admin: 07/11/18 10:15 Dose: 20 mg Insulin Human Regular (Humulin R Med) 0 units SC ACHS [facility]; Protocol Last Admin: 07/11/18 11:57 Dose: 1 unit Losartan Potassium (Cozaar) 100 mg PO DAILY [facility]; Protocol Last Admin: 07/11/18 10:13 Dose: 100 mg Metoprolol Tartrate (Lopressor) 25 mg PO 0800,1800 [facility]; Protocol Last Admin: 07/11/18 08:55 Dose: 25 mg Morphine Sulfate (Morphine) 1 mg IVP Q3H PRN; Protocol PRN Reason: Pain, severe (8-10) Last Admin: 07/05/18 21:35 Dose: 1 mg Multi-Ingredient Cream (Hydrocerin Cream) 0 ea TOP BID [facility]; Protocol Last Admin: 07/11/18 10:20 Dose: 1 applic Nitroglycerin (Nitro-Bid 2% Oint) 2 ea TOP 0000,0600,1200,1800 [facility]; Protocol Last Admin: 07/11/18 11:58 Dose: 2 ea Ondansetron HCl (Zofran Inj) 4 mg IVP Q6H PRN; Protocol PRN Reason: Nausea/Vomiting Pantoprazole Sodium (Protonix Ec Tab) 40 mg PO 0600 [facility]; Protocol Last Admin: 07/11/18 05:50 Dose: 40 mg Prasugrel (Effient) 10 mg PO DAILY [facility]; Protocol Last Admin: 07/11/18 10:14 Dose: 10 mg Sitagliptin Phosphate (Januvia) 50 mg PO DAILY [facility]; Protocol Last Admin: 07/11/18 10:15 Dose: 50 mg Tramadol HCl (Ultram) 50 mg PO Q8H PRN PRN Reason: Pain, severe (8-10) Last Admin: 07/10/18 21:33 Dose: 50 mg Vitamin B Complex/Vit C/Folic Acid (Nephro-Maribel) 1 tab PO 0800 [facility]; Protocol Last Admin: 07/11/18 08:50 Dose: 1 tab Zolpidem Tartrate (Ambien) 5 mg PO HS [facility]; Protocol Last Admin: 07/10/18 21:32 Dose: 5 mg - Labs Labs: 07/09/18 06:00 07/09/18 06:00 PT 17.1 SECONDS (9.4-12.5) H 06/30/18 04:05 INR 1.49 06/30/18 04:05 APTT 29.9 Seconds (25.1-36.5) 07/08/18 06:00 Attending/Attestation - Attestation I have personally seen and examined this patient.: Yes I have fully participated in the care of the patient.: Yes I have reviewed all pertinent clinical information, including history, physical exam and plan: Yes
--- NOTE | 2018-07-11 21:32 | PN ---
DATE: 07/11/2018 SUBJECTIVE: The patient is in bed in no acute distress, nontoxic, no fevers. PHYSICAL EXAMINATION: VITAL SIGNS: Temperature is 98, blood pressure is 140/80, respiratory rate of 18. HEENT: Unremarkable. NECK: Supple. LUNGS: Have decreased breath sounds. HEART: Normal S1, S2. ABDOMEN: Soft. LABORATORY EXAMINATION: Reveals a white count of 11,000, hemoglobin of 10, platelets of 335,000. BUN of 21, creatinine of 1. Microbiology is noted. ASSESSMENT AND PLAN: This is a 72-year-old female who was seen early this morning in room 321, with status post treatment with antibiotics for left foot cellulitis with a left foot ischemia, ischemic changes status post left lower extremity angioplasty, deep venous thrombosis, chronic congestive heart failure, peripheral vascular disease, currently off of antibiotics. The patient is at risk for developing healthcare-associated pneumonia. The patient is scheduled for possible transmetatarsal amputation. We will follow with you. Dakota Stewart MD
== END 2018-07-11 18:01 | disposition home health service (06) | DRG 281 ==
LOC: TRCU 17:48
PROVIDERS: ADMIT Family Medicine; ATTEND Family Medicine
PROC: F07Z9FZ Gait Training/Functional Ambulation Treatment using Assistive, Adaptive, Supportive or Protective Equipment (ICD-10-PCS; principal; 2018-06-28)
PROC: F08Z4FZ Home Management Treatment using Assistive, Adaptive, Supportive or Protective Equipment (ICD-10-PCS; 2018-06-28)
DX: E11.52 Type 2 diabetes mellitus with diabetic peripheral angiopathy with gangrene (principal); I21.4 Non-ST elevation (NSTEMI) myocardial infarction; L97.429 Non-pressure chronic ulcer of left heel and midfoot with unspecified severity; L03.116 Cellulitis of left lower limb; E11.621 Type 2 diabetes mellitus with foot ulcer; I25.118 Atherosclerotic heart disease of native coronary artery with other forms of angina pectoris; D50.9 Iron deficiency anemia, unspecified; E87.6 Hypokalemia; I11.0 Hypertensive heart disease with heart failure; I50.9 Heart failure, unspecified; Z95.5 Presence of coronary angioplasty implant and graft; Z86.711 Personal history of pulmonary embolism

== ENCOUNTER 2018-06-28 17:18 | Emergency (ER) | payer MEDICARE, OTHER ==
[2018-06-28 17:23] VITALS: BMI 25.3
--- NOTE | 2018-06-28 17:30 | ED PDOC ---
Arrival/HPI - General Chief Complaint: Abnormal Labs Historian: Patient - History of Present Illness Narrative History of Present Illness (Text): 06/28/18 17:29 72yo female with past medical history of hypertension, hypercholestremia, CHF referred to Emergency department from TCU for transfusion. Per the RN patient's H/H was 7.6/23.2 this morning. Patient referred to Emergency department by DR. Rivera to be transfused PRBC and sent back to TCU. Patient denies any somatic complaint in Emergency department. Denies melena, hematochezia, , hematemesis, chest pain, dizziness, shortness of breath, abdominal pain.. Past Medical History - Provider Review Nursing Documentation Reviewed: Yes - Cardiac Hx Cardiac Disorders: Yes Hx Hypertension: Yes - Pulmonary Hx Respiratory Disorders: No - Neurological Hx Neurological Disorder: No - HEENT Hx HEENT Disorder: No - Renal Hx Renal Disorder: No - Endocrine/Metabolic Hx Diabetes Mellitus Type 2: Yes - Hematological/Oncological Hx Blood Transfusions: No Hx Blood Transfusion Reaction: No - Integumentary Hx Dermatological Disorder: Yes Other/Comment: multiple small red areas of skin to right knee and lower right leg, thick toenails dry skin feet, ble +2 pitting edema, scratch feliz to r arm and lle - Musculoskeletal/Rheumatological Hx Falls: Yes - Gastrointestinal Hx Gastrointestinal Disorders: No - Genitourinary/Gynecological Hx Genitourinary Disorders: No Hx Reproductive Disorders: No - Psychiatric Hx Psychophysiologic Disorder: Yes Hx Anxiety: Yes Hx Substance Use: No - Surgical History Hx Cholecystectomy: Yes - Anesthesia Hx Anesthesia Reactions: No Hx Malignant Hyperthermia: No Family/Social History - Physician Review Nursing Documentation Reviewed: Yes Family/Social History: Unknown Family HX Smoking Status: Never Smoked Hx Alcohol Use: No Hx Substance Use: No Allergies/Home Meds Allergies/Adverse Reactions: Allergies No Known Allergies Allergy (Verified 06/27/18 18:08) Home Medications: Home Meds Medication Instructions Recorded Confirmed Metoprolol Succinate [Toprol Xl] 50 mg PO DAILY 05/12/18 06/14/18 Valsartan/Hydrochlorothiazide 1 tab PO DAILY 05/12/18 06/14/18 [Valsartan-Hctz 320-25 mg Tab] amLODIPine [Norvasc] 5 mg PO DAILY 05/12/18 06/14/18 metFORMIN [glucOPHAGE] 1,000 mg PO BID 05/12/18 06/14/18 Apixaban [Eliquis] 2 tab PO BID 05/17/18 06/14/18 Nystatin/Triamcinolone [Mycolog 1 oin TP BID 06/14/18 06/14/18 Ointment] Rosuvastatin Calcium [Crestor] 20 mg PO DAILY 06/14/18 06/14/18 SITagliptin [Januvia] 50 mg PO DAILY 06/14/18 06/14/18 Zolpidem [Ambien] 5 mg PO HS 06/14/18 06/14/18 Review of Systems - Physician Review All systems were reviewed & negative as marked: Yes - Review of Systems Constitutional: Normal, Other (Anemia) Eyes: Normal ENT: Normal Respiratory: Normal Cardiovascular: Normal Gastrointestinal: Normal Genitourinary Female: Normal Musculoskeletal: Normal Skin: Normal Neurological: Normal Endocrine: Normal Hemo/Lymphatic: Normal Psychiatric: Normal Physical Exam Vital Signs Reviewed: Yes Temperature: Afebrile Blood Pressure: Normal Pulse: Regular Respiratory Rate: Normal Appearance: Positive for: Well-Appearing, Non-Toxic, Comfortable, Other (Pale ) Pain Distress: None Mental Status: Positive for: Alert and Oriented X 3 - Systems Exam Head: Present: Atraumatic, Normocephalic Pupils: Present: PERRL Extroacular Muscles: Present: EOMI Conjunctiva: Present: Normal Mouth: Present: Moist Mucous Membranes Neck: Present: Normal Range of Motion Respiratory/Chest: Present: Clear to Auscultation, Good Air Exchange. No: Respiratory Distress, Accessory Muscle Use Cardiovascular: Present: Regular Rate and Rhythm, Normal S1, S2. No: Murmurs Abdomen: No: Tenderness, Distention, Peritoneal Signs Back: Present: Normal Inspection Upper Extremity: Present: Normal Inspection. No: Cyanosis, Edema Lower Extremity: Present: Normal Inspection, Other (Derssing noted to b/l leg). No: Edema Neurological: Present: GCS=15, CN II-XII Intact, Speech Normal Skin: Present: Warm, Dry, Normal Color. No: Rashes Psychiatric: Present: Alert, Oriented x 3, Normal Insight, Normal Concentration Medical Decision Making ED Course and Treatment: 06/28/18 17:37 72yo female referred to Emergency department from TCU for transfusion of PRBC. Labs Type and cross Transfusion order Case was DW Dr. Chisholm, pt's PMD who states that he is aware that he DC with Dr. Rivera and recommends 2units of PRBC and then pt will be sent back to TCU. 06/29/18 01:56 Pt was transfused 2units of PRBC in Emergency department. She remained comfortable and hemodynamically stable in Emergency department. she will be transferred back to TCU as per Drs. Rivera and Phan request. Disposition/Present on Arrival - Present on Arrival Any Indicators Present on Arrival: Yes History of DVT/PE: Yes History of Uncontrolled Diabetes: Yes Urinary Catheter: No History Surgical Site Infection Following: None - Disposition Have Diagnosis and Disposition been Completed?: Yes Diagnosis: Anemia Disposition: TRANSITIONAL CARE UNIT Disposition Time: 02:15 Patient Plan: Transfer To Patient Problems: Current Active Problems Problem Status Onset Anemia Acute Condition: STABLE Forms: [facility] (Bulgarian)
[2018-06-28 18:19] LABS: BASO # 0.04 K/mm3 (0.0-2.0); BASO % 0.4 % (0.0-3.0); EOS # 0.3 (0.0-0.7); EOS % 3.1 % (1.5-5.0); GRAN # 7.57 (1.4-6.5); HEMOGLOBIN 7.4 g/dL (12.0-16.0); LYMPH # 1.8 (1.2-3.4); LYMPH % 17.5 % (22.0-35.0); MEAN CELL VOLUME 79.4 fl (80.0-105.0); MEAN CORPUSCULAR HEMOGLOBIN 26.2 pg (25.0-35.0); MEAN PLATELET VOLUME 9.7 fl (7.0-11.0); MONO # 0.6 (0.1-0.6); RBC 2.82 10^6/uL (3.5-6.1); RED CELL DISTRIBUTION WIDTH 14.2 % (11.5-14.5); WHITE BLOOD COUNT 10.4 10^3/uL (4.5-11.0)
[2018-06-28 18:25] LABS: ALBUMIN 3.1 g/dL (3.0-4.8); ALT/SGPT 32 U/L (7-56); AST/SGOT 18 U/L (14-36); BLOOD UREA NITROGEN 19 mg/dL (7-21); CALCIUM 8.1 mg/dL (8.4-10.5); GFR NON-AFRICAN AMERICAN > 60; INR 1.26; PARTIAL THROMBOPLASTIN TIME 27.2 Seconds (25.1-36.5); PROTHROMBIN TIME 14.4 SECONDS (9.4-12.5)
[2018-06-29 01:58] VITALS: BP 139/73; PULSE 90; RESP 19; TEMP 98
[2018-06-29 02:12] VITALS: O2SAT 98
== END 2018-06-29 02:16 ==
LOC: ED 17:18
DX: D64.9 Anemia, unspecified (principal); I11.0 Hypertensive heart disease with heart failure; I50.9 Heart failure, unspecified; E78.00 Pure hypercholesterolemia, unspecified; E11.9 Type 2 diabetes mellitus without complications; F41.9 Anxiety disorder, unspecified
CPT/HCPCS: 36430; 80053; 85025; 85610; 85730; 86850; 86900; 86920; 99283; G0480; P9016

== ENCOUNTER 2018-07-25 14:05 | Inpatient (IN) | payer MEDICARE, OTHER ==
--- NOTE | 2018-07-25 15:48 | ED PDOC ---
Arrival/HPI - General Chief Complaint: Lower Extremity Problem/Injury Historian: Patient - History of Present Illness Narrative History of Present Illness (Text): 07/25/18 15:45 72 y/o female, pmh including htn/hld/dm/eliquis/chf/chronic LLE vascular dise ase, nkda, c/o lt. foot infection and pain Pt. stated that she has chronic infection, told to come to the hospital for IV antibiotics for the left foot infection, was planning to amputation but didn't because she cant get top frame maker clearance, no fever or chills, no headache or night sweat, no rash, no numbness or tingling, no cardiopulmonary complaints, no chest pain/palpitation, no other medical or psychological complaints. Past Medical History - Provider Review Nursing Documentation Reviewed: Yes - Cardiac Hx Cardiac Disorders: Yes Hx Cardiac Arrhythmia: Yes Hx Congestive Heart Failure: Yes Hx Hypertension: Yes - Pulmonary Hx Respiratory Disorders: No - Neurological Hx Neurological Disorder: No - HEENT Hx HEENT Disorder: No - Renal Hx Renal Disorder: Yes Other/Comment: KIDNEY INJURY - Endocrine/Metabolic Hx Endocrine Disorders: Yes Hx Diabetes Mellitus Type 2: Yes - Hematological/Oncological Hx Blood Disorders: Yes Hx Blood Transfusions: Yes - Integumentary Hx Dermatological Disorder: Yes Hx Cellulitis: Yes - Musculoskeletal/Rheumatological Hx Musculoskeletal Disorders: Yes - Gastrointestinal Hx Gastrointestinal Disorders: No - Genitourinary/Gynecological Hx Genitourinary Disorders: No Hx Reproductive Disorders: No - Psychiatric Hx Substance Use: No - Surgical History Hx Cholecystectomy: Yes - Anesthesia Hx Malignant Hyperthermia: No Family/Social History - Physician Review Nursing Documentation Reviewed: Yes Family/Social History: Unknown Family HX Smoking Status: Never Smoked Hx Alcohol Use: No Hx Substance Use: No Allergies/Home Meds Allergies/Adverse Reactions: Allergies No Known Allergies Allergy (Verified 07/25/18 14:28) Review of Systems - Review of Systems Constitutional: absent: Fatigue, Fevers Eyes: absent: Vision Changes ENT: absent: Hearing Changes Respiratory: absent: SOB, Cough Cardiovascular: absent: Chest Pain Gastrointestinal: absent: Abdominal Pain, Nausea, Vomiting Musculoskeletal: Arthralgias. absent: Back Pain, Neck Pain, Joint Swelling, Myalgias Skin: Ulcer, Cellulitis. absent: Rash, Pruritis, Skin Lesions, Laceration, Abscess Psychiatric: absent: Anxiety, Depression, Suicidal Ideation Physical Exam Vital Signs Reviewed: Yes Vital Signs Temp Pulse Resp BP Pulse Ox 07/25/18 14:34 97.9 F 110 H 17 160/91 H 94 L Temperature: Afebrile Blood Pressure: Hypertensive Pulse: Tachycardic Respiratory Rate: Normal Appearance: Positive for: Well-Appearing, Non-Toxic, Comfortable Pain Distress: None Mental Status: Positive for: Alert and Oriented X 3 - Systems Exam Head: Present: Atraumatic, Normocephalic Pupils: Present: PERRL Extroacular Muscles: Present: EOMI Conjunctiva: Present: Normal Mouth: Present: Moist Mucous Membranes Neck: Present: Normal Range of Motion Respiratory/Chest: Present: Clear to Auscultation, Good Air Exchange. No: Respiratory Distress, Accessory Muscle Use Cardiovascular: Present: Regular Rate and Rhythm, Normal S1, S2. No: Murmurs Abdomen: No: Tenderness, Distention, Peritoneal Signs Back: Present: Normal Inspection Upper Extremity: Present: Normal Inspection. No: Cyanosis, Edema Lower Extremity: Present: Normal Inspection, Other (Lt. foot: visible dorsum cellulitis along with 1st/3rd/4th digit toe black eschar tissue and necrotic with foul smell, mild ulcer on the 1st and 2nd digit toe gapping, neurovascular intact, painful FROM , sensation intact, motor 5/5. ). No: Edema Neurological: Present: GCS=15, CN II-XII Intact, Speech Normal, Motor Func Grossly Intact Skin: Present: Warm, Dry, Normal Color. No: Rashes Psychiatric: Present: Alert, Oriented x 3, Normal Insight, Normal Concentration Medical Decision Making ED Course and Treatment: 07/25/18 15:48 -Labs -xrays -IV vanco/zosyn -Observe and reassess 07/25/18 17:02 -CXR IMPRESSION: No active disease. -Lt. foot xray No evidence of osteomyelitis -Labs show no acute significant findings except magnesiumm 1.6 (mgsulfate 2gm IV ordered) -Lactic acid within normal limit. -Wound culture/blood culture obtained -Betadine and gauze dressing applied by me with neurovascular intact. -Pt. has gangrene lt. foot 1st/3rd/4th toe with cellulitis, will need wood fence erector and ID consult with admission. -Paging Dr. Chisholm for admission 07/25/18 17:08 -I spoke to Dr. Chisholm, discussed about the case/labs/radiology results, he recommend to admit to his service with Dr. Stewart/Miguel/Dayna for routine consult. He will follow up on any pending labs/radiology studies plus consults. - Lab Interpretations I have reviewed the lab results: Yes - RAD Interpretation Radiology Orders: 07/25/18 15:43 CHEST PORTABLE [RAD] Stat FOOT LEFT 3 VIEWS ROUTINE [RAD] Stat Chest xray: Date of service: 07/25/2018 HISTORY: medical clearance COMPARISON: 06/14/2018 FINDINGS: LUNGS: No active pulmonary disease. PLEURA: No significant pleural effusion identified, no pneumothorax apparent. CARDIOVASCULAR: No aortic atherosclerotic calcification present. Normal cardiac size. No pulmonary vascular congestion. OSSEOUS STRUCTURES: No significant abnormalities. VISUALIZED UPPER ABDOMEN: Normal. OTHER FINDINGS: None. IMPRESSION: No active disease. Lt. foot xray: Date of service: 07/25/2018 PROCEDURE: Left Foot Radiographs. HISTORY: lt. foot infection COMPARISON: None. FINDINGS: BONES: Normal. No fracture. JOINTS: Normal. SOFT TISSUES: Normal. OTHER FINDINGS: None. IMPRESSION: No evidence of osteomyelitis [employer] Converter: Radiologist - PA / NYLON MACHINE OPERATOR / Resident Statement MD/DO has reviewed & agrees with the documentation as recorded. Disposition/Present on Arrival - Present on Arrival Any Indicators Present on Arrival: No History of DVT/PE: Yes History of Uncontrolled Diabetes: Yes Urinary Catheter: No History of Decub. Ulcer: No History Surgical Site Infection Following: None - Disposition Have Diagnosis and Disposition been Completed?: Yes Diagnosis: Gangrene, Cellulitis of foot, Hypomagnesemia Disposition: HOSPITALIZED Disposition Time: 17:05 Patient Plan: Admission, Telemetry Patient Problems: Current Active Problems Problem Status Onset Gangrene Acute Cellulitis of foot Acute Hypomagnesemia Acute Condition: STABLE
--- NOTE | 2018-07-25 16:19 | RAD ---
Date of service: 07/25/2018 PROCEDURE: Left Foot Radiographs. HISTORY: lt. foot infection COMPARISON: None. FINDINGS: BONES: Normal. No fracture. JOINTS: Normal. SOFT TISSUES: Normal. OTHER FINDINGS: None. IMPRESSION: No evidence of osteomyelitis
--- NOTE | 2018-07-25 16:20 | RAD ---
Date of service: 07/25/2018 HISTORY: medical clearance COMPARISON: 06/14/2018 FINDINGS: LUNGS: No active pulmonary disease. PLEURA: No significant pleural effusion identified, no pneumothorax apparent. CARDIOVASCULAR: No aortic atherosclerotic calcification present. Normal cardiac size. No pulmonary vascular congestion. OSSEOUS STRUCTURES: No significant abnormalities. VISUALIZED UPPER ABDOMEN: Normal. OTHER FINDINGS: None. IMPRESSION: No active disease.
[2018-07-25 16:46] LABS: BASO # 0.06 K/mm3 (0.0-2.0); BASO % 0.6 % (0.0-3.0); EOS # 0.3 (0.0-0.7); EOS % 3.2 % (1.5-5.0); GRAN # 8.07 (1.4-6.5); HEMOGLOBIN 10.4 g/dL (12.0-16.0); LYMPH # 1.7 (1.2-3.4); LYMPH % 16.1 % (22.0-35.0); MEAN CELL VOLUME 80.6 fl (80.0-105.0); MEAN CORPUSCULAR HEMOGLOBIN 26.2 pg (25.0-35.0); MEAN CORPUSCULAR HGB CONC 32.5 g/dl (31.0-37.0); MEAN PLATELET VOLUME 9.3 fl (7.0-11.0); MONO # 0.4 (0.1-0.6); MONO % 4.1 % (1.0-6.0); RBC 3.97 10^6/uL (3.5-6.1); RED CELL DISTRIBUTION WIDTH 14.5 % (11.5-14.5); WHITE BLOOD COUNT 10.6 10^3/uL (4.5-11.0)
[2018-07-25 16:48] LABS: VENOUS BLOOD GAS PO2 146 mm/Hg (30-55)
[2018-07-25 16:58] LABS: ALB/GLOB RATIO 0.9 (1.1-1.8); ALBUMIN 3.7 g/dL (3.0-4.8); ALT/SGPT 21 U/L (7-56); AST/SGOT 57 U/L (14-36); BLOOD UREA NITROGEN 22 mg/dL (7-21); CALCIUM 9.4 mg/dL (8.4-10.5); GFR NON-AFRICAN AMERICAN > 60
[2018-07-25] MEDS ORDERED: Vancomycin 1gm in NS 250ml 1 GM/250 ML BAG IVPB STA (16:58)
[2018-07-25] MEDS ORDERED: Piperacillin/Tazobact 3.375 gm 100 ML IVPB STA (16:58)
[2018-07-25] MEDS ORDERED: Morphine 4 mg/ml ISec IVP STA (16:59)
[2018-07-25] MEDS ORDERED: Magnesium Sulfate 2 gm/50 ml 2 GM/50 ML BAG IVPB ONE (17:02)
--- NOTE | 2018-07-25 18:41 | CARD ---
APPROVED REPORT Date of service: 07/25/2018 EKG Measurement Heart [id number] <Conclusion> Sinus tachycardia Otherwise normal ECG
[2018-07-25] MEDS ORDERED: Morphine 2 mg/ml ISec IVP PRN (19:27)
[2018-07-25] MEDS: Sodium Chloride 0.9% 1,000 ML IV SCH (20:24)
--- NOTE | 2018-07-25 20:43 | HP ---
DATE OF EXAM: 07/25/2018 HISTORY OF PRESENT ILLNESS: I got a call from Dr. Bojorquez, the thermal cutting machine operator to went to her house today and saw her left foot and he said she had to go straight to the hospital, there is a bad infection, it is black gangrene, and it is not doing well. She recently had a three stents placed in that leg with Dr. Lei Kirk and also two cardiac caths with stent placed within the heart with Dr. Lei Rivera and he feels Dr. Bojorquez and he feels that she needs to have a probable BKA at this time. She is a 72-year-old white female with history of hypertension; high cholesterol; diabetes, on Eliquis; CHF; chronic lower left extremity vascular disease with left foot infection with gangrene and moving up the foot where we now need to do a BKA as per Dr. Bojorquez. PAST MEDICAL HISTORY: She has hypertension, congestive heart failure, kidney injury, and type 2 diabetes. She had blood transfusions. She has cellulitis. She has a cholecystectomy. FAMILY HISTORY: Unknown family history. SOCIAL HISTORY: Never smoked. No alcohol. No drugs. ALLERGIES: NO KNOWN DRUG ALLERGIES. REVIEW OF SYSTEMS: She is very fatigued. She is very anxious and very nervous. She is worried about the legs. She understands she might lose her leg. No fatigue or fevers. No acute vision or hearing changes. She has old stuff though, she is hard of hearing. No shortness of breath or cough. No chest pain or palpitation. No abdominal pain, nausea, vomiting, constipation, or diarrhea. She has arthralgias. The left foot is black and bandaged. There is a bad circulation to the left foot. She is very anxious. Not depressed. No suicidal thoughts. PHYSICAL EXAMINATION: VITAL SIGNS: Temperature 97.9, pulse 110, respiratory rate 17, blood pressure 160/91, and 94% O2 sat on room air. GENERAL: She is well-appearing, nontoxic, comfortable, worried about her foot. Alert and oriented x3. HEENT: Head is atraumatic and normocephalic. Extraocular muscles are intact. Pupils are reactive to light and accommodation. NECK: Supple. HEART: Regular rate. Normal S1 and S2. LUNGS: Decreased breath sounds, but clear to auscultation bilaterally. ABDOMEN: Soft and nontender. Positive bowel sounds. EXTREMITIES: The left foot has cellulitis of a black toe eschar, necrotic foul smelling and with mild ulcer of the toes and forefoot. NEUROLOGIC: GCS is 15. Cranial nerves II-XII grossly intact. Speech is normal; otherwise, apart from the left foot, the skin is warm and dry. Alert and oriented x3. LYMPHS: Thyroid midline. No palpable appreciable lymphadenopathy. LABORATORY DATA: She had multiple tests done already in the ER. She has sinus tachycardia on EKG. Chest x-ray was clear. The left foot x-ray showed no osteomyelitis. She has _ pO2. Lactate was 0.9. White count is 10.6, hemoglobin 10.4, hematocrit 32, and platelets are 352. She has a sodium 136, potassium 4.9, BUN 22, creatinine 0.9, GFR is greater than 60, sugar is 191, and calcium is 9.4. Total bili is 0.5, AST is 57, ALT is 21, alk phos 118, total creatinine kinase is 35, total protein 7.6, albumin 3.7, and globulin 3.9. ASSESSMENT AND PLAN: She is going to have consults with Podiatry who sent over to the emergency room to have consult with Infectious Disease for IV antibiotics, we started her on Zosyn, put her on morphine for the pain, put her back on her regular medications, her diabetes medications, her anxiety medications, and her blood pressure medications. She is also going to be seen by Dr. Rivera, the fitter's assistant who stented her recently cardiac stents times two procedures and Dr. Lei Kirk who put three stents into a left leg. We will see if we can make up a plan for her. She is here with gangrene of the toes of the left foot infection, cellulitis and she possibly needs a BKA. We will continue aggressive treatment and care on Tammy Padgett. She was sent in by Dr. Bojorquez to be put on my service. Thank you very much. Rick Chisholm DO RACHELLE
[2018-07-25] MEDS ORDERED: Piperacillin/Tazobact 3.375 gm 100 ML IVPB SCH (22:00)
[2018-07-25] MEDS: Vancomycin 750mg 750 MG/250 ML BAG IVPB SCH (22:32)
[2018-07-25] MEDS: Piperacillin/Tazobact 3.375 gm 100 ML IVPB SCH (22:40)
[2018-07-25 23:24] VITALS: BMI 26.7
[2018-07-26] MEDS: Sodium Chloride 0.9% 1,000 ML IV SCH ×2 (03:16→20:29)
[2018-07-26] MEDS: Piperacillin/Tazobact 3.375 gm 100 ML IVPB SCH ×3 (05:27→22:23)
[2018-07-26] MEDS: Pantoprazole 40 mg EC Tab PO SCH (05:27)
[2018-07-26 07:02] LABS: HEMOGLOBIN 9.6 g/dL (12.0-16.0); MEAN CELL VOLUME 81.6 fl (80.0-105.0); MEAN CORPUSCULAR HGB CONC 31.9 g/dl (31.0-37.0); MEAN PLATELET VOLUME 9.1 fl (7.0-11.0); RBC 3.69 10^6/uL (3.5-6.1); RED CELL DISTRIBUTION WIDTH 14.4 % (11.5-14.5); WHITE BLOOD COUNT 8.2 10^3/uL (4.5-11.0)
[2018-07-26 07:53] LABS: ALB/GLOB RATIO 0.9 (1.1-1.8); ALBUMIN 2.9 g/dL (3.0-4.8); CALCIUM 8.6 mg/dL (8.4-10.5)
[2018-07-26] MEDS: Vancomycin 750mg 750 MG/250 ML BAG IVPB SCH ×2 (08:46→20:52)
--- NOTE | 2018-07-26 13:16 | PN ---
DATE: 07/26/2018 SUBJECTIVE: I saw Tammy resting comfortably in bed. She is in good spirits. She is eating her breakfast. She is not sure what is going to happen with the left foot. Podiatry said she needs to have a below-knee amputation, waiting to see if it is okay with Cardiology and see if Lei Kirk could give her some advices about circulation. MEDICATIONS: She is on IV antibiotics by Infectious Diseases. She is on Ambien, aspirin, Cozaar, Imdur, Januvia, Lipitor, morphine, Norvasc, Protonix, IV fluids, vancomycin IV, Xanax, Zofran, and Zosyn. PHYSICAL EXAMINATION: VITAL SIGNS: She has a 97.6 temperature, 92 pulse, 144/80 blood pressure, 20 respiratory rate. HEAD: Atraumatic, normocephalic. GENERAL: She is feeding herself breakfast. She is worried about the leg. HEART: Regular rate. LUNGS: Clear to auscultation. ABDOMEN: Soft. EXTREMITIES: Left foot is bandaged. LABORATORY DATA: She has 8.2 white count, 9.6 hemoglobin, 30.1 hematocrit with 283 platelets. Sodium 137, potassium 4.4, BUN 17, creatinine is 1.1. GFR is 49. Sugar is 165. Calcium is 8.6. Total bili is 0.3. AST is 35, ALT is 20, alk phos 97, total protein 6.2. C-reactive protein was high at 13.2. ASSESSMENT AND PLAN: We will see what the other doctors have to say, see if we need to do surgery, see if it is possible. In the meantime, will continue with the antibiotics, checking her labs, getting good wound care. I will discuss this with Podiatry. Rick Chisholm DO
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
--- NOTE | 2018-07-26 15:41 | CON ---
DATE: 07/26/2018 CARDIOLOGY FOLLOWUP HISTORY: The patient is a 72-year woman, who presents with gangrene in her left lower extremity. PAST MEDICAL HISTORY: The patient's past medical history includes a history of triple-vessel angioplasty using bare-metal stents given the patient's need for Eliquis given her previous history of pulmonary embolism. She underwent PCI of the left lower extremity, which is an occluded vessel. However, her perfusion has not returned, and the patient currently has a gangrene in her left lower extremity. She denies angina, denies shortness of breath. Her past medical history also includes diabetes mellitus, hypertension and hypercholesterolemia. SOCIAL HISTORY: The patient does not smoke. REVIEW OF SYSTEMS: Fourteen-point review of systems is reviewed in detail. No cardiac symptoms were elicited. PHYSICAL EXAMINATION; VITAL SIGNS: Blood pressure 144/80, heart rate is in the 90s. NECK: Negative JVD. LUNGS: Without rales. HEART: Heart rate S1 and S2. EXTREMITIES: The left foot is bandaged. EKG shows no acute changes. LABORATORY DATA: Hemoglobin is 9.1. Chemistries, BUN and creatinine unremarkable. Glucose 165. IMPRESSION: 1. Gangrene in her left lower extremity. 2. Stable angina. 3. History of triple-vessel percutaneous transluminal coronary angioplasty. 4. History of pulmonary embolism, treated with Eliquis. 5. Diabetes mellitus. 6. Peripheral vascular disease. 7. Anemia. PLAN: Given these findings, the patient's cardiac status is stable post angioplasty. She will need Podiatry to evaluate her gangrene. We will need to decide whether the amputation is necessary. We will stop her Effient at this time and place her on aspirin only. Lei Rivera MD
--- NOTE | 2018-07-26 16:12 | US ---
PROCEDURE: Lower extremity ELISABET exam HISTORY: Peripheral vascular disease. Previous left lower extremity endovascular intervention. Progressive left foot gangrene. Evaluate for patency. PHYSICIAN(S): Lei Kirk MD. FINDINGS: The exam is limited by calcified distal vessels. The left resting ELISABET is not obtainable. The right resting ELISABET is inaccurate and elevated, 0.71. The brachial systolic pressures are symmetric. The low thigh PVR waveforms are normal and symmetric. The left calf PVR waveform is normal with borderline augmentation. This suggests the left SFA and popliteal intervention is patent. The left ankle and metatarsal waveforms are pulsatile but moderately to severely blunted. These distal waveforms on the left are somewhat improved when compared to the previous examination. The right calf PVR waveform is moderately blunted. This is consistent with right SFA disease. The right ankle and metatarsal waveforms are severely blunted. This is consistent with right tibial and pedal disease IMPRESSION: 1. Limited study. 2. The left distal waveforms are pulsatile and somewhat improved when compared to the pre intervention study. 3. 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
--- NOTE | 2018-07-26 16:16 | US ---
PROCEDURE: Duplex arterial ultrasound of the left lower extremity HISTORY: Recent left lower extremity atherectomy and angioplasty. Progressive gangrene. Evaluate patency of left popliteal artery and posterior tibial artery PHYSICIAN(S): Lei Kirk MD. FINDINGS: The distal left SFA is diseased and patent. The visualized segments of left popliteal artery are also patent. The left posterior tibial artery is heavily calcified which limits its interrogation. The segments that can be evaluated are patent with flow and relatively normal velocities. IMPRESSION: 1. Patent distal left SFA and popliteal arteries. Atherosclerotic disease is present. 2. Limited eval of the calcified left posterior tibial artery. The visualized segments are patent.
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
[2018-07-27] MEDS: Piperacillin/Tazobact 3.375 gm 100 ML IVPB SCH ×3 (05:20→21:37)
[2018-07-27] MEDS: Pantoprazole 40 mg EC Tab PO SCH (05:20)
[2018-07-27 06:36] LABS: HEMOGLOBIN 9.9 g/dL (12.0-16.0); MEAN CELL VOLUME 81.7 fl (80.0-105.0); MEAN CORPUSCULAR HEMOGLOBIN 25.4 pg (25.0-35.0); MEAN CORPUSCULAR HGB CONC 31.1 g/dl (31.0-37.0); MEAN PLATELET VOLUME 9.2 fl (7.0-11.0); RBC 3.89 10^6/uL (3.5-6.1); RED CELL DISTRIBUTION WIDTH 14.4 % (11.5-14.5); WHITE BLOOD COUNT 10.5 10^3/uL (4.5-11.0)
[2018-07-27 06:49] LABS: ALB/GLOB RATIO 0.9 (1.1-1.8); CALCIUM 8.5 mg/dL (8.4-10.5)
--- NOTE | 2018-07-27 08:12 | CP.PCM.PN ---
Subjective - Date & Time of Evaluation Date of Evaluation: 07/27/18 Time of Evaluation: 08:08 - Subjective Subjective: Surgery Progress- Dr. Mansfield Patient seen and examined at bedside. No acute events overnight. Patient is emotional about the fact of surgery. Dressing C/D/I, changed w/ Iodine dressing. denies nausea, vomiting, fevers chills. ambulates w/ assistance and walker. Objective - Vital Signs/Intake and Output Vital Signs (last 24 hours): Temp Pulse Resp BP Pulse Ox 98 F 88 18 150/80 96 07/27/18 06:00 07/27/18 06:00 07/27/18 06:00 07/27/18 06:00 07/27/18 00:01 Intake and Output: 07/27/18 07/27/18 06:59 18:59 Intake Total 1690 Balance 1690 - Medications Medications: Current Medications Alprazolam (Xanax) 0.25 mg PO BID PRN; Protocol PRN Reason: Anxiety Stop: 08/01/18 19:29 Amlodipine Besylate (Norvasc) 5 mg PO DAILY [facility] Last Admin: 07/26/18 10:41 Dose: 5 mg Apixaban (Eliquis) 2.5 mg PO BID [facility]; Protocol Last Admin: 07/26/18 17:19 Dose: 2.5 mg Aspirin (Aspirin Chewable) 81 mg PO DAILY [facility] Last Admin: 07/26/18 10:41 Dose: 81 mg Atorvastatin Calcium (Lipitor) 40 mg PO DIN [facility] Last Admin: 07/26/18 17:19 Dose: 40 mg Sodium Chloride (Sodium Chloride 0.9%) 1,000 mls @ 100 mls/hr IV .Q10H [facility] Last Admin: 07/26/18 20:29 Dose: 100 mls/hr Vancomycin HCl (Vancomycin 750 Mg In Ns) 750 mg in 250 mls @ 167 mls/hr IVPB Q12H [facility]; Protocol Stop: 08/03/18 20:01 Last Admin: 07/26/18 20:52 Dose: 167 mls/hr Piperacillin Sod/Tazobactam Sod (Zosyn 3.375 In Ns 100ml) 100 mls @ 25 mls/hr IVPB Q8 [facility]; Protocol Stop: 08/03/18 22:01 Last Admin: 07/27/18 05:20 Dose: 25 mls/hr Isosorbide Mononitrate (Imdur) 60 mg PO DAILY [facility] Last Admin: 07/26/18 10:41 Dose: 60 mg Losartan Potassium (Cozaar) 100 mg PO DAILY [facility] Last Admin: 07/26/18 10:41 Dose: 100 mg Morphine Sulfate (Morphine) 2 mg IVP Q4H PRN PRN Reason: Pain, moderate (4-7) Ondansetron HCl (Zofran Tab) 4 mg PO TID PRN PRN Reason: Nausea/Vomiting Pantoprazole Sodium (Protonix Ec Tab) 40 mg PO 0600 [facility] Last Admin: 07/27/18 05:20 Dose: 40 mg Sitagliptin Phosphate (Januvia) 50 mg PO DAILY [facility] Last Admin: 07/26/18 10:44 Dose: 50 mg Zolpidem Tartrate (Ambien) 5 mg PO HS [facility]; Protocol Last Admin: 07/26/18 22:23 Dose: 5 mg - Labs Labs: 07/27/18 06:00 07/27/18 06:00 - Constitutional Appears: Non-toxic, No Acute Distress - Head Exam Head Exam: absent: ATRAUMATIC - Eye Exam Eye Exam: EOMI - ENT Exam ENT Exam: Mucous Membranes Moist - Respiratory Exam Respiratory Exam: NORMAL BREATHING PATTERN. absent: Accessory Muscle Use, Respiratory Distress - Cardiovascular Exam Cardiovascular Exam: REGULAR RHYTHM. absent: Bradycardia, Tachycardia - GI/Abdominal Exam GI & Abdominal Exam: Soft. absent: Distended, Firm, Guarding, Rigid, Tenderness - Extremities Exam Additional comments: LLE: singals biphasic DP and PT, palpable popliteal dry gangrene of left foot 1st and 3rd digits Assessment and Plan - Assessment and Plan (Free Text) Assessment: 72F w/ dry gangrene of LLE 1st and 3rd digits Plan: - iodine dressing - will discuss surgical options - cardiac clearance prior to surgery - further recs per Dr. Mansfield surgical attending [facility] PGY2
[2018-07-27] MEDS: Vancomycin 750mg 750 MG/250 ML BAG IVPB SCH ×2 (08:26→20:29)
--- NOTE | 2018-07-27 10:30 | PN ---
DATE: 07/27/2018 SUBJECTIVE: She is still very emotional, upset about the left foot with the gangrene of the toes with possibility of either a transmit or most likely a left below knee amputation. She is being seen by Podiatry, Infectious Disease, Surgery, Cardiology. She was also seen by interventional radiologist, and she understands she is going to need to have a surgery for either toes or below knee amputation, was probably below knee amputation. She was very upset about that. PHYSICAL EXAMINATION: VITAL SIGNS: She is a 98 temperature, 88 pulse, 150/80 blood pressure and 18 respiratory rate. HEENT: Head is atraumatic and normocephalic. HEART: Regular rate. LUNGS: Decreased breath sounds, but clear. ABDOMEN: Soft and nontender. Positive bowel sounds. EXTREMITIES: Her left foot is bandaged. She has gangrenous toes. MEDICATION: She is currently on Ambien, aspirin, Cozaar, Eliquis, Imdur, Januvia, Lipitor, morphine for pain; Norvasc, Protonix, IV fluids, Xanax and Zofran. LABORATORY DATA: She has a 139 sodium, potassium 4.1, BUN 15, creatinine 1.1, GFR is 14, blood sugar is 139, calcium is 8.5, total bili is 0.4, AST is 34, ALT is 19, alk phos 96, total protein 6.5. Has 10.5 white count, 9.9 hemoglobin, 31.8 hematocrit and 306 platelets. She is being seen by multiple doctors after making decision with Dr. Mcintosh and Dr. Mansfield the aco coordinator and the surgeon when they want to do this surgery of the left leg, most probably a below knee amputation, I do not think a transmet will heal. Then, she will have to come back for BKA, so we will see what the decision is. We will continue with the aggressive treatment, IV fluids and IV antibiotics and pain medications. She has got left foot gangrenous toes, peripheral vascular disease, in need of a surgery. Rick Chisholm DO
--- NOTE | 2018-07-27 10:56 | PN ---
DATE: 07/27/2018 SUBJECTIVE: The gangrene in her left lower extremity will need to be addressed. OBJECTIVE: VITAL SIGNS: Blood pressure is 150/80, heart rates in the 80s. NECK: Negative JVD. LUNGS: Without rales. HEART: Reveal S1, S2. EXTREMITIES: Left lower extremity is bandaged. LABORATORY DATA: Hemoglobin is 9.9, white count is 10.9, BUN and creatinine unremarkable. IMPRESSION: 1. Gangrene of left lower extremity. 2. Severe peripheral vascular disease. 3. Status post multivessel percutaneous transluminal coronary artery and stent. 4. History of pulmonary embolism. 5. Diabetes mellitus. Given these findings, the patient is hemodynamically stable. It is likely the patient will need an amputation of the left lower extremity. Lei Rivera MD
--- NOTE | 2018-07-27 14:19 | CP.PCM.PN ---
<Ubaldo Florez - Last Filed: 07/27/18 14:10> Subjective - Date & Time of Evaluation Date of Evaluation: 07/27/18 Time of Evaluation: 14:10 - Subjective Subjective: Podiatry consult note for Dr. Mcintosh 72 y/o female patient seen and evaluated at bedside in for left foot gangrene. Patient was resting in her bed. Patient is AAOX3. Patient states that Her foot pain is still present but less than yesterday. Patient states that she was seen earlier by general surgery. Patient denies any other pedal complaint at this time. She denies N/V/F/C/SOB/CP recently. Objective - Vital Signs/Intake and Output Vital Signs (last 24 hours): Temp Pulse Resp BP Pulse Ox 98.4 F 101 H 20 138/83 96 07/27/18 12:00 07/27/18 12:00 07/27/18 12:00 07/27/18 12:00 07/27/18 00:01 Intake and Output: 07/27/18 07/27/18 06:59 18:59 Intake Total 1690 Balance 1690 - Medications Medications: Current Medications Alprazolam (Xanax) 0.25 mg PO BID PRN; Protocol PRN Reason: Anxiety Stop: 08/01/18 19:29 Amlodipine Besylate (Norvasc) 5 mg PO DAILY [facility] Last Admin: 07/27/18 10:30 Dose: 5 mg Apixaban (Eliquis) 2.5 mg PO BID [facility]; Protocol Last Admin: 07/27/18 10:37 Dose: 2.5 mg Aspirin (Aspirin Chewable) 81 mg PO DAILY [facility] Last Admin: 07/27/18 10:30 Dose: 81 mg Atorvastatin Calcium (Lipitor) 40 mg PO DIN [facility] Last Admin: 07/26/18 17:19 Dose: 40 mg Sodium Chloride (Sodium Chloride 0.9%) 1,000 mls @ 100 mls/hr IV .Q10H [facility] Last Admin: 07/26/18 20:29 Dose: 100 mls/hr Vancomycin HCl (Vancomycin 750 Mg In Ns) 750 mg in 250 mls @ 167 mls/hr IVPB Q12H [facility]; Protocol Stop: 08/03/18 20:01 Last Admin: 07/27/18 08:26 Dose: 167 mls/hr Piperacillin Sod/Tazobactam Sod (Zosyn 3.375 In Ns 100ml) 100 mls @ 25 mls/hr IVPB Q8 [facility]; Protocol Stop: 08/03/18 22:01 Last Admin: 07/27/18 05:20 Dose: 25 mls/hr Isosorbide Mononitrate (Imdur) 60 mg PO DAILY [facility] Last Admin: 07/27/18 10:31 Dose: 60 mg Losartan Potassium (Cozaar) 100 mg PO DAILY [facility] Last Admin: 07/27/18 10:30 Dose: 100 mg Morphine Sulfate (Morphine) 2 mg IVP Q4H PRN PRN Reason: Pain, moderate (4-7) Ondansetron HCl (Zofran Tab) 4 mg PO TID PRN PRN Reason: Nausea/Vomiting Pantoprazole Sodium (Protonix Ec Tab) 40 mg PO 0600 [facility] Last Admin: 07/27/18 05:20 Dose: 40 mg Sitagliptin Phosphate (Januvia) 50 mg PO DAILY [facility] Last Admin: 07/27/18 10:37 Dose: 50 mg Zolpidem Tartrate (Ambien) 5 mg PO HS [facility]; Protocol Last Admin: 07/26/18 22:23 Dose: 5 mg - Labs Labs: 07/27/18 06:00 07/27/18 06:00 - Constitutional Appears: No Acute Distress - Head Exam Head Exam: ATRAUMATIC, NORMOCEPHALIC - Extremities Exam Additional comments: Left lower extremity exam: Dressing was just changed by general surgery. Dressing was C/D/I. - Neurological Exam Neurological Exam: Alert, Awake, Oriented x3 - Psychiatric Exam Psychiatric exam: Normal Affect, Normal Mood Assessment and Plan - Assessment and Plan (Free Text) Assessment: 72 y/o female patient seen at bedside for for left foot gangrene. Plan: Patient seen and evaluated with Dr. Mcintosh Plan discussed in details with attending Dr. Mcintosh Labs and vitals reviewed - afebrile, absent leukocytosis LE ELISABET/PVR; Left foot waveform improved to preinterventional study. R sever SFA and tibial occlusive disease. Foot dresseing left intact. Wound culture: Enterobacter Cloacae Ssp Cloac Patient will not heal if she has TMA, Patient needs BKA. Discussed with the patient and her son her current left foot condition and the plan of treatment. No podiatric intervention planned at this time. Still waiting for general surgery decision. Podiatry will continue to follow patient while in house. <Ute Mcintosh - Last Filed: 07/28/18 14:50> Objective - Vital Signs/Intake and Output Vital Signs (last 24 hours): Temp Pulse Resp BP Pulse Ox 97 F L 93 H 20 142/77 96 07/28/18 12:00 07/28/18 12:00 07/28/18 12:00 07/28/18 12:00 07/28/18 06:00 Intake and Output: 07/28/18 07/28/18 06:59 18:59 Intake Total 240 Balance 240 - Medications Medications: Current Medications Alprazolam (Xanax) 0.25 mg PO BID PRN; Protocol PRN Reason: Anxiety Stop: 08/01/18 19:29 Amlodipine Besylate (Norvasc) 5 mg PO DAILY [facility] Last Admin: 07/28/18 10:38 Dose: 5 mg Apixaban (Eliquis) 2.5 mg PO BID [facility]; Protocol Last Admin: 07/27/18 10:37 Dose: 2.5 mg Aspirin (Aspirin Chewable) 81 mg PO DAILY [facility] Last Admin: 07/28/18 10:38 Dose: 81 mg Atorvastatin Calcium (Lipitor) 40 mg PO DIN [facility] Last Admin: 07/27/18 18:03 Dose: 40 mg Enoxaparin Sodium (Lovenox) 30 mg SC 0600,1800 [facility]; Protocol Last Admin: 07/28/18 05:31 Dose: 30 mg Sodium Chloride (Sodium Chloride 0.9%) 1,000 mls @ 100 mls/hr IV .Q10H [facility] Last Admin: 07/28/18 05:32 Dose: 100 mls/hr Vancomycin HCl (Vancomycin 750 Mg In Ns) 750 mg in 250 mls @ 167 mls/hr IVPB Q12H [facility]; Protocol Stop: 08/03/18 20:01 Last Admin: 07/28/18 08:20 Dose: 167 mls/hr Piperacillin Sod/Tazobactam Sod (Zosyn 3.375 In Ns 100ml) 100 mls @ 25 mls/hr IVPB Q8 [facility]; Protocol Stop: 08/03/18 22:01 Last Admin: 07/28/18 05:31 Dose: 25 mls/hr Isosorbide Mononitrate (Imdur) 60 mg PO DAILY [facility] Last Admin: 07/28/18 10:38 Dose: 60 mg Losartan Potassium (Cozaar) 100 mg PO DAILY [facility] Last Admin: 07/28/18 10:38 Dose: 100 mg Morphine Sulfate (Morphine) 2 mg IVP Q4H PRN PRN Reason: Pain, moderate (4-7) Ondansetron HCl (Zofran Tab) 4 mg PO TID PRN PRN Reason: Nausea/Vomiting Pantoprazole Sodium (Protonix Ec Tab) 40 mg PO 0600 [facility] Last Admin: 07/28/18 05:31 Dose: 40 mg Sitagliptin Phosphate (Januvia) 50 mg PO DAILY [facility] Last Admin: 07/28/18 10:40 Dose: 50 mg Zolpidem Tartrate (Ambien) 5 mg PO [facility]; Protocol Last Admin: 07/27/18 21:37 Dose: 5 mg - Labs Labs: 07/28/18 06:00 07/28/18 06:00 Attending/Attestation - Attestation I have personally seen and examined this patient.: Yes I have fully participated in the care of the patient.: Yes I have reviewed all pertinent clinical information, including history, physical exam and plan: Yes
[2018-07-27] MEDS ORDERED: Enoxaparin 30 mg Syringe SC SCH (15:15)
--- NOTE | 2018-07-27 15:39 | CP.PCM.PCO ---
Physician Communication Note - Physician Communication Note Physician Communication Note: Pt. on schedule for BKA 07/01/18 marshal is on hold
[2018-07-27] MEDS: Sodium Chloride 0.9% 1,000 ML IV SCH ×2 (18:33→19:41)
--- NOTE | 2018-07-27 23:46 | PN ---
DATE: 07/27/2018 SUBJECTIVE: The patient is seen in bed, in no acute distress, nontoxic. PHYSICAL EXAMINATION: VITAL SIGNS: Temperature is 98, blood pressure is 130/80, respiratory rate of 18, and heart rate of 88. HEENT: Unremarkable. NECK: Supple. LUNGS: Have decreased breath sounds. HEART: Normal S1 and S2. ABDOMEN: Soft. LABORATORY EXAMINATION: Reveals a white count of 10,000 and hemoglobin of 9. Chemistries reveal a BUN of 15, creatinine of 1.1. Stool cultures with Enterobacter cloacae, gram-negative aissatou, gram-positive cocci. Blood cultures, no growth. ASSESSMENT AND PLAN: This is a 72-year-old female, seen early this morning in room 261, bed 2 with history of deep vein thrombosis, chronic congestive heart failure, coronary artery disease, and percutaneous coronary intervention. Admitted with left foot ischemic changes, peripheral vascular disease, transmetatarsal amputation pending, on vancomycin. The patient is scheduled for below-knee amputation with Eliquis on hold. Dakota Stewart MD
[2018-07-28] MEDS: Enoxaparin 30 mg Syringe SC SCH ×2 (05:31→18:18)
[2018-07-28] MEDS: Piperacillin/Tazobact 3.375 gm 100 ML IVPB SCH ×3 (05:31→23:11)
[2018-07-28] MEDS: Pantoprazole 40 mg EC Tab PO SCH (05:31)
[2018-07-28] MEDS: Sodium Chloride 0.9% 1,000 ML IV SCH (05:32)
[2018-07-28 06:42] LABS: HEMOGLOBIN 9.4 g/dL (12.0-16.0); MEAN CORPUSCULAR HEMOGLOBIN 25.2 pg (25.0-35.0); MEAN CORPUSCULAR HGB CONC 31.1 g/dl (31.0-37.0); MEAN PLATELET VOLUME 9.1 fl (7.0-11.0); RBC 3.73 10^6/uL (3.5-6.1); RED CELL DISTRIBUTION WIDTH 14.5 % (11.5-14.5); WHITE BLOOD COUNT 9.3 10^3/uL (4.5-11.0)
[2018-07-28 07:07] LABS: ALB/GLOB RATIO 0.8 (1.1-1.8); ALBUMIN 2.9 g/dL (3.0-4.8); ALT/SGPT 22 U/L (7-56); AST/SGOT 26 U/L (14-36); BLOOD UREA NITROGEN 10 mg/dL (7-21); CALCIUM 8.8 mg/dL (8.4-10.5); GFR NON-AFRICAN AMERICAN > 60
[2018-07-28] MEDS: Vancomycin 750mg 750 MG/250 ML BAG IVPB SCH ×2 (08:20→21:32)
--- NOTE | 2018-07-28 09:34 | CP.PCM.PN ---
Subjective - Date & Time of Evaluation Date of Evaluation: 07/28/18 Time of Evaluation: 09:30 - Subjective Subjective: Hi Mesa DO PGY1 Internal Medicine [place] [facility] - Surgical Progress Note for Dr. Mansfield Patient seen and examined at bedside this morning. It was discussed at length risk vs benefits of BKA with both patient, and son over the phone. Patient stated she would sign OR consent upon further discussion w/ family today. No acute events overnight, afebrile overnight Objective - Vital Signs/Intake and Output Vital Signs (last 24 hours): Temp Pulse Resp BP Pulse Ox 99.0 F 92 H 18 155/88 H 96 07/28/18 06:00 07/28/18 06:00 07/28/18 06:00 07/28/18 06:00 07/28/18 06:00 Intake and Output: 07/28/18 07/28/18 06:59 18:59 Intake Total 240 Balance 240 - Medications Medications: Current Medications Alprazolam (Xanax) 0.25 mg PO BID PRN; Protocol PRN Reason: Anxiety Stop: 08/01/18 19:29 Amlodipine Besylate (Norvasc) 5 mg PO DAILY [facility] Last Admin: 07/27/18 10:30 Dose: 5 mg Apixaban (Eliquis) 2.5 mg PO BID [facility]; Protocol Last Admin: 07/27/18 10:37 Dose: 2.5 mg Aspirin (Aspirin Chewable) 81 mg PO DAILY [facility] Last Admin: 07/27/18 10:30 Dose: 81 mg Atorvastatin Calcium (Lipitor) 40 mg PO DIN [facility] Last Admin: 07/27/18 18:03 Dose: 40 mg Enoxaparin Sodium (Lovenox) 30 mg SC 0600,1800 [facility]; Protocol Last Admin: 07/28/18 05:31 Dose: 30 mg Sodium Chloride (Sodium Chloride 0.9%) 1,000 mls @ 100 mls/hr IV .Q10H [facility] Last Admin: 07/28/18 05:32 Dose: 100 mls/hr Vancomycin HCl (Vancomycin 750 Mg In Ns) 750 mg in 250 mls @ 167 mls/hr IVPB Q12H [facility]; Protocol Stop: 08/03/18 20:01 Last Admin: 07/28/18 08:20 Dose: 167 mls/hr Piperacillin Sod/Tazobactam Sod (Zosyn 3.375 In Ns 100ml) 100 mls @ 25 mls/hr IVPB Q8 [facility]; Protocol Stop: 08/03/18 22:01 Last Admin: 07/28/18 05:31 Dose: 25 mls/hr Isosorbide Mononitrate (Imdur) 60 mg PO DAILY [facility] Last Admin: 07/27/18 10:31 Dose: 60 mg Losartan Potassium (Cozaar) 100 mg PO DAILY [facility] Last Admin: 07/27/18 10:30 Dose: 100 mg Morphine Sulfate (Morphine) 2 mg IVP Q4H PRN PRN Reason: Pain, moderate (4-7) Ondansetron HCl (Zofran Tab) 4 mg PO TID PRN PRN Reason: Nausea/Vomiting Pantoprazole Sodium (Protonix Ec Tab) 40 mg PO 0600 [facility] Last Admin: 07/28/18 05:31 Dose: 40 mg Sitagliptin Phosphate (Januvia) 50 mg PO DAILY [facility] Last Admin: 07/27/18 10:37 Dose: 50 mg Zolpidem Tartrate (Ambien) 5 mg PO HS [facility]; Protocol Last Admin: 07/27/18 21:37 Dose: 5 mg - Labs Labs: 07/28/18 06:00 07/28/18 06:00 - Constitutional Appears: Non-toxic, No Acute Distress - Head Exam Head Exam: absent: ATRAUMATIC - Eye Exam Eye Exam: EOMI - ENT Exam ENT Exam: Mucous Membranes Moist - Respiratory Exam Respiratory Exam: NORMAL BREATHING PATTERN. absent: Accessory Muscle Use, Respiratory Distress - Cardiovascular Exam Cardiovascular Exam: REGULAR RHYTHM. absent: Bradycardia, Tachycardia - GI/Abdominal Exam GI & Abdominal Exam: Soft. absent: Distended, Firm, Guarding, Rigid, Tenderness - Extremities Exam Additional comments: LLE: singals biphasic DP and PT, palpable popliteal dry gangrene of left foot 1st and 3rd digits Assessment and Plan - Assessment and Plan (Free Text) Assessment: 72F w/ dry gangrene of LLE 1st and 3rd digits Plan: -C/w iodine dressing for now -Wound care as per podiatry -Surgical options discussed w/ patient and family today; Patient and family agreeable for L BKA -BKA tentatively scheduled for Tuesday -Will require cardiac risk stratification prior to surgery -Eliquis held; Started on therapeutic lovenox at this time -Will hold lovenox immediately prior to surgery -Further recs per Dr. Donal Mesa DO PGY1 - Surgical Progress Note for Dr. Mansfield
--- NOTE | 2018-07-28 11:36 | CP.PCM.PN ---
<Ubaldo Florez - Last Filed: 07/28/18 11:37> Subjective - Date & Time of Evaluation Date of Evaluation: 07/28/18 Time of Evaluation: 11:36 - Subjective Subjective: Podiatry consult note for Dr. Bojorquez 72 y/o female patient seen and evaluated at bedside in for left foot gangrene. Patient son was at the bedside at the visit time. Patient was resting in her bed. Patient is AAOX3. Patient states that Her foot pain is still present but more controlled now. Patient denies any other pedal complaint at this time. She denies any overnight N/V/F/C/SOB/CP recently. Objective - Vital Signs/Intake and Output Vital Signs (last 24 hours): Temp Pulse Resp BP Pulse Ox 99.0 F 90 18 155/82 H 96 07/28/18 06:00 07/28/18 10:38 07/28/18 06:00 07/28/18 10:38 07/28/18 06:00 Intake and Output: 07/28/18 07/28/18 06:59 18:59 Intake Total 240 Balance 240 - Medications Medications: Current Medications Alprazolam (Xanax) 0.25 mg PO BID PRN; Protocol PRN Reason: Anxiety Stop: 08/01/18 19:29 Amlodipine Besylate (Norvasc) 5 mg PO DAILY [facility] Last Admin: 07/28/18 10:38 Dose: 5 mg Apixaban (Eliquis) 2.5 mg PO BID [facility]; Protocol Last Admin: 07/27/18 10:37 Dose: 2.5 mg Aspirin (Aspirin Chewable) 81 mg PO DAILY [facility] Last Admin: 07/28/18 10:38 Dose: 81 mg Atorvastatin Calcium (Lipitor) 40 mg PO DIN [facility] Last Admin: 07/27/18 18:03 Dose: 40 mg Enoxaparin Sodium (Lovenox) 30 mg SC 0600,1800 [facility]; Protocol Last Admin: 07/28/18 05:31 Dose: 30 mg Sodium Chloride (Sodium Chloride 0.9%) 1,000 mls @ 100 mls/hr IV .Q10H [facility] Last Admin: 07/28/18 05:32 Dose: 100 mls/hr Vancomycin HCl (Vancomycin 750 Mg In Ns) 750 mg in 250 mls @ 167 mls/hr IVPB Q12H [facility]; Protocol Stop: 08/03/18 20:01 Last Admin: 07/28/18 08:20 Dose: 167 mls/hr Piperacillin Sod/Tazobactam Sod (Zosyn 3.375 In Ns 100ml) 100 mls @ 25 mls/hr IVPB Q8 [facility]; Protocol Stop: 08/03/18 22:01 Last Admin: 07/28/18 05:31 Dose: 25 mls/hr Isosorbide Mononitrate (Imdur) 60 mg PO DAILY [facility] Last Admin: 07/28/18 10:38 Dose: 60 mg Losartan Potassium (Cozaar) 100 mg PO DAILY [facility] Last Admin: 07/28/18 10:38 Dose: 100 mg Morphine Sulfate (Morphine) 2 mg IVP Q4H PRN PRN Reason: Pain, moderate (4-7) Ondansetron HCl (Zofran Tab) 4 mg PO TID PRN PRN Reason: Nausea/Vomiting Pantoprazole Sodium (Protonix Ec Tab) 40 mg PO 0600 [facility] Last Admin: 07/28/18 05:31 Dose: 40 mg Sitagliptin Phosphate (Januvia) 50 mg PO DAILY [facility] Last Admin: 07/28/18 10:40 Dose: 50 mg Zolpidem Tartrate (Ambien) 5 mg PO HS [facility]; Protocol Last Admin: 07/27/18 21:37 Dose: 5 mg - Labs Labs: 07/28/18 06:00 07/28/18 06:00 - Constitutional Appears: No Acute Distress - Head Exam Head Exam: ATRAUMATIC, NORMOCEPHALIC - Extremities Exam Additional comments: Left lower extremity exam: Vascular: DP/PT non-palpable. Temperature gradient warm to warm on from proximal to distal, no edema noted. Pinpoint erythematous lesions medeiros of left tibia. black gangrenous changes noted to the left toe all the toes. Erythema noted at the left foot proximal to the gangrenous toes. Neuro: protective and gross sensations are grossly intact Derm: black gangrenous changes noted to the left toe all the toes. Erythema noted at the left foot proximal to the gangrenous toes. MSK: Pain on palpation to the left foot. Muscle power couldn't be assessed at the left foot due to pain and guarding. - Neurological Exam Neurological Exam: Alert, Awake, Oriented x3 - Psychiatric Exam Psychiatric exam: Normal Affect Assessment and Plan - Assessment and Plan (Free Text) Assessment: 72 y/o female patient seen at bedside for for left foot gangrene. Plan: Patient seen and evaluated with Dr. Bojorquez Plan discussed in details with attending Dr. Bojorquez Labs and vitals reviewed - afebrile, absent leukocytosis LE ELISABET/PVR; Left foot waveform improved to preinterventional study. R sever SFA and tibial occlusive disease. Foot dresseing left intact. Wound culture: Enterobacter Cloacae Ssp Cloac, klebsiella pneumonae Ssp Pneum, Staph aureus. Patient will not heal if she has TMA, Patient needs BKA. Discussed with the patient and her son her current left foot condition and the plan of treatment. No podiatric intervention planned at this time. Still waiting for general surgery decision. Podiatry will continue to follow up the patient while in house. <Romulo Bojorquez - Last Filed: 07/29/18 08:25> Objective - Vital Signs/Intake and Output Vital Signs (last 24 hours): Temp Pulse Resp BP Pulse Ox 97.8 F 87 18 153/77 H 95 07/29/18 06:00 07/29/18 06:00 07/29/18 06:00 07/29/18 06:00 07/29/18 06:00 Intake and Output: 07/29/18 07/29/18 06:59 18:59 Intake Total 1640 Balance 1640 - Medications Medications: Current Medications Alprazolam (Xanax) 0.25 mg PO BID PRN; Protocol PRN Reason: Anxiety Stop: 08/01/18 19:29 Amlodipine Besylate (Norvasc) 5 mg PO DAILY [facility] Last Admin: 07/28/18 10:38 Dose: 5 mg Apixaban (Eliquis) 2.5 mg PO BID [facility]; Protocol Last Admin: 07/27/18 10:37 Dose: 2.5 mg Aspirin (Aspirin Chewable) 81 mg PO DAILY [facility] Last Admin: 07/28/18 10:38 Dose: 81 mg Atorvastatin Calcium (Lipitor) 40 mg PO DIN [facility] Last Admin: 07/28/18 18:17 Dose: 40 mg Enoxaparin Sodium (Lovenox) 30 mg SC 0600,1800 [facility]; Protocol Last Admin: 07/29/18 05:56 Dose: 30 mg Sodium Chloride (Sodium Chloride 0.9%) 1,000 mls @ 100 mls/hr IV .Q10H [facility] Last Admin: 07/29/18 06:07 Dose: 100 mls/hr Vancomycin HCl (Vancomycin 750 Mg In Ns) 750 mg in 250 mls @ 167 mls/hr IVPB Q12H [facility]; Protocol Stop: 08/03/18 20:01 Last Admin: 07/28/18 21:32 Dose: 167 mls/hr Piperacillin Sod/Tazobactam Sod (Zosyn 3.375 In Ns 100ml) 100 mls @ 25 mls/hr IVPB Q8 [facility]; Protocol Stop: 08/03/18 22:01 Last Admin: 07/29/18 05:56 Dose: 25 mls/hr Isosorbide Mononitrate (Imdur) 60 mg PO DAILY [facility] Last Admin: 07/28/18 10:38 Dose: 60 mg Losartan Potassium (Cozaar) 100 mg PO DAILY [facility] Last Admin: 07/28/18 10:38 Dose: 100 mg Morphine Sulfate (Morphine) 2 mg IVP Q4H PRN PRN Reason: Pain, moderate (4-7) Last Admin: 07/28/18 22:19 Dose: 2 mg Ondansetron HCl (Zofran Tab) 4 mg PO TID PRN PRN Reason: Nausea/Vomiting Pantoprazole Sodium (Protonix Ec Tab) 40 mg PO 0600 [facility] Last Admin: 07/29/18 05:56 Dose: 40 mg Sitagliptin Phosphate (Januvia) 50 mg PO DAILY [facility] Last Admin: 07/28/18 10:40 Dose: 50 mg Zolpidem Tartrate (Ambien) 5 mg PO HS [facility]; Protocol Last Admin: 07/28/18 21:34 Dose: 5 mg - Labs Labs: 07/28/18 06:00 07/28/18 06:00 Attending/Attestation - Attestation I have personally seen and examined this patient.: Yes I have fully participated in the care of the patient.: Yes I have reviewed all pertinent clinical information, including history, physical exam and plan: Yes
--- NOTE | 2018-07-28 13:15 | CP.PCM.PN ---
Subjective - Date & Time of Evaluation Date of Evaluation: 07/28/18 Time of Evaluation: 10:50 - Subjective Subjective: No increase in left foot pain, no fevers, no nausea. Objective - Vital Signs/Intake and Output Vital Signs (last 24 hours): Temp Pulse Resp BP Pulse Ox 97 F L 93 H 20 142/77 96 07/28/18 12:00 07/28/18 12:00 07/28/18 12:00 07/28/18 12:00 07/28/18 06:00 Intake and Output: 07/28/18 07/28/18 06:59 18:59 Intake Total 240 Balance 240 - Medications Medications: Current Medications Alprazolam (Xanax) 0.25 mg PO BID PRN; Protocol PRN Reason: Anxiety Stop: 08/01/18 19:29 Amlodipine Besylate (Norvasc) 5 mg PO DAILY [facility] Last Admin: 07/28/18 10:38 Dose: 5 mg Apixaban (Eliquis) 2.5 mg PO BID [facility]; Protocol Last Admin: 07/27/18 10:37 Dose: 2.5 mg Aspirin (Aspirin Chewable) 81 mg PO DAILY [facility] Last Admin: 07/28/18 10:38 Dose: 81 mg Atorvastatin Calcium (Lipitor) 40 mg PO DIN [facility] Last Admin: 07/27/18 18:03 Dose: 40 mg Enoxaparin Sodium (Lovenox) 30 mg SC 0600,1800 [facility]; Protocol Last Admin: 07/28/18 05:31 Dose: 30 mg Sodium Chloride (Sodium Chloride 0.9%) 1,000 mls @ 100 mls/hr IV .Q10H [facility] Last Admin: 07/28/18 05:32 Dose: 100 mls/hr Vancomycin HCl (Vancomycin 750 Mg In Ns) 750 mg in 250 mls @ 167 mls/hr IVPB Q12H [facility]; Protocol Stop: 08/03/18 20:01 Last Admin: 07/28/18 08:20 Dose: 167 mls/hr Piperacillin Sod/Tazobactam Sod (Zosyn 3.375 In Ns 100ml) 100 mls @ 25 mls/hr IVPB Q8 [facility]; Protocol Stop: 08/03/18 22:01 Last Admin: 07/28/18 05:31 Dose: 25 mls/hr Isosorbide Mononitrate (Imdur) 60 mg PO DAILY [facility] Last Admin: 07/28/18 10:38 Dose: 60 mg Losartan Potassium (Cozaar) 100 mg PO DAILY [facility] Last Admin: 07/28/18 10:38 Dose: 100 mg Morphine Sulfate (Morphine) 2 mg IVP Q4H PRN PRN Reason: Pain, moderate (4-7) Ondansetron HCl (Zofran Tab) 4 mg PO TID PRN PRN Reason: Nausea/Vomiting Pantoprazole Sodium (Protonix Ec Tab) 40 mg PO 0600 [facility] Last Admin: 07/28/18 05:31 Dose: 40 mg Sitagliptin Phosphate (Januvia) 50 mg PO DAILY [facility] Last Admin: 07/28/18 10:40 Dose: 50 mg Zolpidem Tartrate (Ambien) 5 mg PO [facility]; Protocol Last Admin: 07/27/18 21:37 Dose: 5 mg - Labs Labs: 07/28/18 06:00 07/28/18 06:00 - Constitutional Appears: Chronically Ill - Head Exam Head Exam: NORMAL INSPECTION - Neck Exam Neck Exam: absent: Meningismus - Respiratory Exam Respiratory Exam: Decreased Breath Sounds - Cardiovascular Exam Cardiovascular Exam: +S1, +S2 - GI/Abdominal Exam GI & Abdominal Exam: Soft. absent: Tenderness - Extremities Exam Additional comments: left foot with dressings in place Assessment and Plan - Assessment and Plan (Free Text) Plan: Assessment left foot ischemic changes with PVD, need to get transmetatarsal amputation S/P left lower extremity angioplasty DVT chronic CHF CAD S/P PCI Plan continue Vancomycin day 3 and will continue to monitor clinically patient is for possible BKA on Tuesday - discussed with Dr. Chisholm discussed with son and patient at bedside
--- NOTE | 2018-07-28 14:22 | PN ---
DATE: 07/28/2018 SUBJECTIVE: I had a long discussion with the son yesterday in my office about Tammy and the need for her to have a BKA, and I also had a long discussion this morning with Tammy herself. She is very upset about it where I explained that it could save her life and never going to get better as this will be painful and infected and she needs to have it done and she finally understood it. Hopefully, she will get through this, she has to. She will be on antibiotics and the planned procedure is Tuesday with the BKA. PHYSICAL EXAMINATION: VITAL SIGNS: She has a 99 temp, 90 pulse, blood pressure, 18 respiratory rate, 96% O2 sat on room air. HEENT: Head is atraumatic and normocephalic. HEART: Regular rate. LUNGS: Decreased breath sounds, but clear. ABDOMEN: Soft. EXTREMITIES: The left foot is bandaged. She has gangrenous toes and is not looking well. MEDICATION: She is on Ambien, aspirin, Cozaar, Eliquis, Imdur, Januvia, Lipitor, Lovenox, morphine, Norvasc, Protonix, IV fluids, vancomycin, IV Xanax and Zofran IV. There is a plan to stop the Eliquis, which is good and to be on Lovenox until the morning of the procedure and that will be stopped. LABORATORY DATA: We are going to check her labs tomorrow. Her labs today; she has a 139 sodium, potassium 3.9, BUN 10, creatinine 0.9, GFR is greater than 60, sugar is 114, calcium is 8.8, phos 3.4, magnesium 1.7, total bili is 0.4, AST is 26, ALT is 22, alk phos 86, total protein 6.3. Her white count is down to 9.3, hemoglobin 9.4, hematocrit 30.2 and platelets 276. PLAN: The plan is for Tuesday to do a BKA of the left leg. She needs it secondary to the gangrene, failed stent placement for circulation of the left leg and it is important she has this done. Continue the antibiotics until such time. We will check her labs tomorrow. Discussed with the son at length and with the patient. Rick Chisholm DO [facility] # [id number]
--- NOTE | 2018-07-28 15:17 | CP.PCM.PCO ---
Physician Communication Note - Physician Communication Note Physician Communication Note: OR 07/31/18 SANAZ
--- NOTE | 2018-07-28 18:23 | PN ---
DATE: 07/28/2018 COVERING FOR: Lei Rivera MD SUBJECTIVE: The patient denies any chest pain or shortness of breath at this time. PHYSICAL EXAMINATION: VITAL SIGNS: Blood pressure 155/82, heart rate 90, temperature 99 degrees Fahrenheit, and respirations 18. HEENT: Pale conjunctivae. CHEST: Diminished breath sounds over the bases. HEART: S1 and S2 regular. ABDOMEN: Soft. EXTREMITIES: 1+ pitting edema. Bracing applied to the left foot. LABORATORY DATA: Hemoglobin and hematocrit 9.4 and 30.2, white count and platelets count are within normal limits. Today's SMA-7: Sodium 139, potassium 3.9, chloride 109, CO2 of 27, glucose 114, BUN 10, creatinine 0.9. EKG on admission revealed sinus tachycardia at a rate of 103; otherwise, normal EKG. Arterial Doppler of the lower extremity was consistent with severe right superficial femoral artery occlusive disease. Patent distal left superficial artery and popliteal artery. ASSESSMENT: 1. Left lower extremity gangrene. 2. Severe peripheral vascular disease. 3. Status post multivessel percutaneous coronary intervention. 4. History of pulmonary embolus. 5. Uncontrolled diabetes mellitus. RECOMMENDATIONS: Continue current aspirin at 81 mg once a day, Cozaar at 100 mg once a day, Eliquis is being on hold in anticipation for left below-knee amputation on Tuesday. Continue Lipitor at 20 mg once a day, subcutaneous Lovenox at 30 mg subcutaneous twice a day, vancomycin at 750 mg intravenously every 12 hours, and Zosyn 3.375 g intravenously every 8 hours. Marlon Tamayo MD
[2018-07-29] MEDS: Piperacillin/Tazobact 3.375 gm 100 ML IVPB SCH ×3 (05:56→21:32)
[2018-07-29] MEDS: Pantoprazole 40 mg EC Tab PO SCH (05:56)
[2018-07-29] MEDS: Enoxaparin 30 mg Syringe SC SCH ×2 (05:56→18:28)
[2018-07-29] MEDS: Sodium Chloride 0.9% 1,000 ML IV SCH ×2 (06:07→21:35)
--- NOTE | 2018-07-29 08:27 | CP.PCM.PN ---
Subjective - Date & Time of Evaluation Date of Evaluation: 07/29/18 (') Time of Evaluation: 07:10 - Subjective Subjective: General surgery progress note for Dr. Mansfield Patient seen and examined this am at bedside. KAYO per nursing. Patient ambulates with assistance and walker. Patient denies f/c, n/v, CP, SOB and abdominal pain. Objective - Vital Signs/Intake and Output Vital Signs (last 24 hours): Temp Pulse Resp BP Pulse Ox 97.8 F 87 18 153/77 H 95 07/29/18 06:00 07/29/18 06:00 07/29/18 06:00 07/29/18 06:00 07/29/18 06:00 Intake and Output: 07/29/18 07/29/18 06:59 18:59 Intake Total 1640 Balance 1640 - Medications Medications: Current Medications Alprazolam (Xanax) 0.25 mg PO BID PRN; Protocol PRN Reason: Anxiety Stop: 08/01/18 19:29 Amlodipine Besylate (Norvasc) 5 mg PO DAILY [facility] Last Admin: 07/28/18 10:38 Dose: 5 mg Apixaban (Eliquis) 2.5 mg PO BID [facility]; Protocol Last Admin: 07/27/18 10:37 Dose: 2.5 mg Aspirin (Aspirin Chewable) 81 mg PO DAILY [facility] Last Admin: 07/28/18 10:38 Dose: 81 mg Atorvastatin Calcium (Lipitor) 40 mg PO DIN [facility] Last Admin: 07/28/18 18:17 Dose: 40 mg Enoxaparin Sodium (Lovenox) 30 mg SC 0600,1800 [facility]; Protocol Last Admin: 07/29/18 05:56 Dose: 30 mg Sodium Chloride (Sodium Chloride 0.9%) 1,000 mls @ 100 mls/hr IV .Q10H [facility] Last Admin: 07/29/18 06:07 Dose: 100 mls/hr Vancomycin HCl (Vancomycin 750 Mg In Ns) 750 mg in 250 mls @ 167 mls/hr IVPB Q12H [facility]; Protocol Stop: 08/03/18 20:01 Last Admin: 07/28/18 21:32 Dose: 167 mls/hr Piperacillin Sod/Tazobactam Sod (Zosyn 3.375 In Ns 100ml) 100 mls @ 25 mls/hr IVPB Q8 [facility]; Protocol Stop: 08/03/18 22:01 Last Admin: 07/29/18 05:56 Dose: 25 mls/hr Isosorbide Mononitrate (Imdur) 60 mg PO DAILY [facility] Last Admin: 07/28/18 10:38 Dose: 60 mg Losartan Potassium (Cozaar) 100 mg PO DAILY [facility] Last Admin: 07/28/18 10:38 Dose: 100 mg Morphine Sulfate (Morphine) 2 mg IVP Q4H PRN PRN Reason: Pain, moderate (4-7) Last Admin: 07/28/18 22:19 Dose: 2 mg Ondansetron HCl (Zofran Tab) 4 mg PO TID PRN PRN Reason: Nausea/Vomiting Pantoprazole Sodium (Protonix Ec Tab) 40 mg PO 0600 [facility] Last Admin: 07/29/18 05:56 Dose: 40 mg Sitagliptin Phosphate (Januvia) 50 mg PO DAILY [facility] Last Admin: 07/28/18 10:40 Dose: 50 mg Zolpidem Tartrate (Ambien) 5 mg PO HS [facility]; Protocol Last Admin: 07/28/18 21:34 Dose: 5 mg - Labs Labs: 07/28/18 06:00 07/28/18 06:00 - Constitutional Appears: Well, Non-toxic, No Acute Distress - Head Exam Head Exam: ATRAUMATIC, NORMOCEPHALIC - Eye Exam Eye Exam: EOMI - ENT Exam ENT Exam: Mucous Membranes Moist - Respiratory Exam Respiratory Exam: NORMAL BREATHING PATTERN - Cardiovascular Exam Cardiovascular Exam: REGULAR RHYTHM - GI/Abdominal Exam GI & Abdominal Exam: Soft. absent: Guarding, Tenderness - Extremities Exam Additional comments: LLE: singals biphasic DP and PT, palpable popliteal dry gangrene of left foot 1st and 3rd digits - Neurological Exam Neurological Exam: Alert, Awake, Oriented x3 - Psychiatric Exam Psychiatric exam: Normal Affect, Normal Mood - Skin Skin Exam: Dry Additional comments: dry gangrene of left foot 1st and 3rd digits Assessment and Plan - Assessment and Plan (Free Text) Assessment: 72 yr old female with Dry gangrene of 1st ad third digits on left foot Plan: c/w iodine dressing needs cardiac clearance plan for surgery Tuesday discussed with Dr. Donal Auguste, PGY 1
[2018-07-29 08:37] LABS: HEMOGLOBIN 9.8 g/dL (12.0-16.0); MEAN CELL VOLUME 81.1 fl (80.0-105.0); MEAN CORPUSCULAR HEMOGLOBIN 25.3 pg (25.0-35.0); MEAN CORPUSCULAR HGB CONC 31.2 g/dl (31.0-37.0); MEAN PLATELET VOLUME 9.3 fl (7.0-11.0); RBC 3.87 10^6/uL (3.5-6.1); RED CELL DISTRIBUTION WIDTH 14.6 % (11.5-14.5); WHITE BLOOD COUNT 9.9 10^3/uL (4.5-11.0)
[2018-07-29 08:38] LABS: ALB/GLOB RATIO 0.9 (1.1-1.8); CALCIUM 8.5 mg/dL (8.4-10.5)
--- NOTE | 2018-07-29 09:58 | CP.PCM.PN ---
<Hernesto Mesa - Last Filed: 07/29/18 09:56> Subjective - Date & Time of Evaluation Date of Evaluation: 07/29/18 Time of Evaluation: 09:56 - Subjective Subjective: Podiatry consult note for Dr. Bojorquez 72 y/o female patient seen and evaluated at bedside in for left foot gangrene. Patient son was at the bedside at the visit time. Patient was resting in her bed. Patient is AAOX3. Patient states that Her foot pain is still present but more controlled now. Patient denies any other pedal complaint at this time. She denies any overnight N/V/F/C/SOB/CP recently. Objective - Vital Signs/Intake and Output Vital Signs (last 24 hours): Temp Pulse Resp BP Pulse Ox 97.8 F 87 18 153/77 H 95 07/29/18 06:00 07/29/18 06:00 07/29/18 06:00 07/29/18 06:00 07/29/18 06:00 Intake and Output: 07/29/18 07/29/18 06:59 18:59 Intake Total 1640 Balance 1640 - Medications Medications: Current Medications Alprazolam (Xanax) 0.25 mg PO BID PRN; Protocol PRN Reason: Anxiety Stop: 08/01/18 19:29 Amlodipine Besylate (Norvasc) 5 mg PO DAILY [facility] Last Admin: 07/28/18 10:38 Dose: 5 mg Apixaban (Eliquis) 2.5 mg PO BID [facility]; Protocol Last Admin: 07/27/18 10:37 Dose: 2.5 mg Aspirin (Aspirin Chewable) 81 mg PO DAILY [facility] Last Admin: 07/28/18 10:38 Dose: 81 mg Atorvastatin Calcium (Lipitor) 40 mg PO DIN [facility] Last Admin: 07/28/18 18:17 Dose: 40 mg Enoxaparin Sodium (Lovenox) 30 mg SC 0600,1800 [facility]; Protocol Last Admin: 07/29/18 05:56 Dose: 30 mg Sodium Chloride (Sodium Chloride 0.9%) 1,000 mls @ 100 mls/hr IV .Q10H [facility] Last Admin: 07/29/18 06:07 Dose: 100 mls/hr Vancomycin HCl (Vancomycin 750 Mg In Ns) 750 mg in 250 mls @ 167 mls/hr IVPB Q12H [facility]; Protocol Stop: 08/03/18 20:01 Last Admin: 07/28/18 21:32 Dose: 167 mls/hr Piperacillin Sod/Tazobactam Sod (Zosyn 3.375 In Ns 100ml) 100 mls @ 25 mls/hr IVPB Q8 [facility]; Protocol Stop: 08/03/18 22:01 Last Admin: 07/29/18 05:56 Dose: 25 mls/hr Potassium Chloride (Potassium Chloride 10 Meq/100 Ml) 10 meq in 100 mls @ 50 mls/hr IVPB ONCE ONE Stop: 07/29/18 11:44 Isosorbide Mononitrate (Imdur) 60 mg PO DAILY [facility] Last Admin: 07/28/18 10:38 Dose: 60 mg Losartan Potassium (Cozaar) 100 mg PO DAILY [facility] Last Admin: 07/28/18 10:38 Dose: 100 mg Morphine Sulfate (Morphine) 2 mg IVP Q4H PRN PRN Reason: Pain, moderate (4-7) Last Admin: 07/28/18 22:19 Dose: 2 mg Ondansetron HCl (Zofran Tab) 4 mg PO TID PRN PRN Reason: Nausea/Vomiting Pantoprazole Sodium (Protonix Ec Tab) 40 mg PO 0600 [facility] Last Admin: 07/29/18 05:56 Dose: 40 mg Sitagliptin Phosphate (Januvia) 50 mg PO DAILY [facility] Last Admin: 07/28/18 10:40 Dose: 50 mg Zolpidem Tartrate (Ambien) 5 mg PO HS [facility]; Protocol Last Admin: 07/28/18 21:34 Dose: 5 mg - Labs Labs: 07/29/18 08:15 07/29/18 08:15 - Constitutional Appears: Well, Non-toxic, No Acute Distress - Extremities Exam Additional comments: Left lower extremity exam: Vascular: DP/PT non-palpable. Temperature gradient warm to warm on from proximal to distal, no edema noted. Pinpoint erythematous lesions medeiros of left tibia. black gangrenous changes noted to the left toe all the toes. Erythema noted at the left foot proximal to the gangrenous toes. Neuro: protective and gross sensations are grossly intact Derm: black gangrenous changes noted to the left toe all the toes. Erythema noted at the left foot proximal to the gangrenous toes. MSK: Pain on palpation to the left foot. Muscle power couldn't be assessed at the left foot due to pain and guarding. - Neurological Exam Neurological Exam: Alert, Awake, Oriented x3 - Psychiatric Exam Psychiatric exam: Normal Affect, Normal Mood Assessment and Plan - Assessment and Plan (Free Text) Assessment: 72 y/o female patient seen at bedside for for left foot gangrene Plan: Patient seen and evaluated with Dr. Bojorquez Plan discussed in details with attending Dr. Bojorquez Labs and vitals reviewed - afebrile, absent leukocytosis LE ELISABET/PVR; Left foot waveform improved to preinterventional study. R sever SFA and tibial occlusive disease. Foot dresseing left intact. Wound culture: Enterobacter Cloacae Ssp Cloac, klebsiella pneumonae Ssp Pneum, Staph aureus. Patient will not heal if she has TMA, Patient needs BKA. Discussed with the patient and her son her current left foot condition and the plan of treatment. No podiatric intervention planned at this time. Surgery planning a case for Tuesday Podiatry will continue to follow up the patient while in house. <Romulo Bojorquez - Last Filed: 07/31/18 10:23> Objective - Vital Signs/Intake and Output Vital Signs (last 24 hours): Temp Pulse Resp BP Pulse Ox 98.1 F 94 H 18 164/89 H 95 07/31/18 05:43 07/31/18 05:45 07/31/18 05:43 07/31/18 05:43 07/31/18 05:43 Intake and Output: 07/31/18 07/31/18 06:59 18:59 Intake Total 1320 Output Total 3 Balance 1317 - Medications Medications: Current Medications Alprazolam (Xanax) 0.25 mg PO BID PRN; Protocol PRN Reason: Anxiety Stop: 08/01/18 19:29 Last Admin: 07/30/18 10:37 Dose: 0.25 mg Amlodipine Besylate (Norvasc) 5 mg PO DAILY [facility] Last Admin: 07/30/18 10:10 Dose: 5 mg Apixaban (Eliquis) 2.5 mg PO BID [facility]; Protocol Last Admin: 07/27/18 10:37 Dose: 2.5 mg Aspirin (Aspirin Chewable) 81 mg PO DAILY [facility] Last Admin: 07/30/18 10:10 Dose: 81 mg Atorvastatin Calcium (Lipitor) 40 mg PO DIN [facility] Last Admin: 07/30/18 17:23 Dose: 40 mg Enoxaparin Sodium (Lovenox) 30 mg SC 0600,1800 [facility]; Protocol Last Admin: 07/30/18 08:42 Dose: Not Given Sodium Chloride (Sodium Chloride 0.9%) 1,000 mls @ 100 mls/hr IV .Q10H [facility] Last Admin: 07/31/18 03:30 Dose: 100 mls/hr Piperacillin Sod/Tazobactam Sod (Zosyn 3.375 In Ns 100ml) 100 mls @ 25 mls/hr IVPB Q8 [facility]; Protocol Stop: 08/03/18 22:01 Last Admin: 07/31/18 05:29 Dose: 25 mls/hr Potassium Chloride (Potassium Chloride 10 Meq/100 Ml) 10 meq in 100 mls @ 50 mls/hr IVPB Q2H [facility] Stop: 07/31/18 12:29 Last Admin: 07/31/18 08:45 Dose: 50 mls/hr Isosorbide Mononitrate (Imdur) 60 mg PO DAILY [facility] Last Admin: 07/30/18 10:10 Dose: 60 mg Losartan Potassium (Cozaar) 100 mg PO DAILY [facility] Last Admin: 07/30/18 10:10 Dose: 100 mg Morphine Sulfate (Morphine) 2 mg IVP Q4H PRN PRN Reason: Pain, moderate (4-7) Last Admin: 07/28/18 22:19 Dose: 2 mg Ondansetron HCl (Zofran Tab) 4 mg PO TID PRN PRN Reason: Nausea/Vomiting Pantoprazole Sodium (Protonix Ec Tab) 40 mg PO 0600 [facility] Last Admin: 07/31/18 05:29 Dose: 40 mg Sitagliptin Phosphate (Januvia) 50 mg PO DAILY [facility] Last Admin: 07/31/18 10:03 Dose: Not Given Zolpidem Tartrate (Ambien) 5 mg PO HS [facility]; Protocol Last Admin: 07/30/18 21:37 Dose: 5 mg - Labs Labs: 07/31/18 06:00 07/31/18 06:00 PT 12.9 SECONDS (9.4-12.5) H 07/31/18 06:00 INR 1.12 07/31/18 06:00 APTT 28.7 Seconds (25.1-36.5) 07/31/18 06:00 Attending/Attestation - Attestation I have personally seen and examined this patient.: Yes I have fully participated in the care of the patient.: Yes I have reviewed all pertinent clinical information, including history, physical exam and plan: Yes
[2018-07-29] MEDS: Vancomycin 750mg 750 MG/250 ML BAG IVPB SCH (10:23)
[2018-07-29] MEDS ORDERED: Potassium Chloride 20 mEq ER Tab PO ONE (14:44)
--- NOTE | 2018-07-29 15:23 | PN ---
DATE: 07/29/2018 SUBJECTIVE: I saw her resting comfortably in bed. She is still very emotional that the fact that she is going to have a below-knee amputation and the left foot will not heal, and she is on Ambien, aspirin, Cozaar, Eliquis is on hold, Imdur, Januvia, Lipitor, Lovenox, morphine, Norvasc, potassium replacement, Protonix, IV fluid, vancomycin IV, Xanax, Zofran, and Zosyn IV. She is very concerned about the leg, what is going to happen afterwards. I tried to reassure will heal up, she will do okay, she will have a good life. She is still very emotional. PHYSICAL EXAMINATION VITAL SIGNS: She has 97.8 temp, 87 pulse, 153/77 blood pressure, 18 respiratory rate, 95% O2 sat on room air. HEENT: Head is atraumatic and normocephalic. HEART: Regular rate. LUNGS: Clear to auscultation. ABDOMEN: Soft. EXTREMITIES: No edema. LABORATORY DATA: She has 9.9 white count, 9.8 hemoglobin, 31.4 hematocrit, 285 platelets. She has 141 sodium, potassium 3.4, I gave her potassium rider today, BUN 12, creatinine 1.1, GFR is 49, sugar is 144, calcium is 8.5, phos is 3.4, magnesium 1.7, total bili is 0.3, AST is 16, ALT is 19, alk phos 83, total protein 6.3. ASSESSMENT AND PLAN: She had Enterobacter cloacae and Klebsiella pneumoniae and staphylococcus aureus of the gram stain. She is on intravenous antibiotics. She is being seen by numerous physicians, Podiatry, Infectious Disease, Cardiology, interventional radiologist and Surgery plans to do surgery on Tuesday. We will check her labs tomorrow. I spent a lot of time with her abut her situation and what is going to happen. She understands. She is just upset. I talked to the son also . Rick Chisholm DO [facility] CENTERAshlee
--- NOTE | 2018-07-29 17:21 | PN ---
DATE: 07/29/2018 SUBJECTIVE: The patient is in bed, in no acute distress. PHYSICAL EXAMINATION: VITAL SIGNS: Temperature is 97, blood pressure is 150/70, respiratory rate of 18, heart rate of 95. HEENT: Unremarkable. NECK: Supple. LUNGS: Have decreased breath sounds. HEART: Normal S1 and S2. ABDOMEN: Soft, nontender. LABORATORY EXAMINATION: Reveals a white count of 9.9, hemoglobin of 9. Chemistries reveal a BUN of 12, creatinine of 1.1. Microbiology reveals the toe culture is Enterobacter cloacae, Klebsiella pneumonia and Staph aureus, and Enterobacter cloacae is relatively sensitive as is the Klebsiella, as is the oxacillin-sensitive Staph aureus, and review of orders revealed the patient to be on vancomycin and Zosyn. ASSESSMENT AND PLAN: A 72-year-old female who has left foot ischemia changes with peripheral vascular disease and peripheral arterial disease. The patient scheduled for transmetatarsal amputation on Tuesday, status post left lower extremity angioplasty, deep venous thrombosis, chronic congestive heart failure, on vancomycin and Zosyn, and currently with a sensitive Staphylococcus and sensitive Enterobacter and sensitive Klebsiella. We will discontinue the vancomycin since it is not methicillin-resistant Staphylococcus aureus and continue with the Zosyn for the sensitive Staphylococcus and the gram-negative. Dakota Stewart MD
[2018-07-30] MEDS: Piperacillin/Tazobact 3.375 gm 100 ML IVPB SCH ×4 (04:18→21:37)
[2018-07-30] MEDS: Pantoprazole 40 mg EC Tab PO SCH ×2 (04:19→08:42)
[2018-07-30] MEDS: Enoxaparin 30 mg Syringe SC SCH ×2 (04:19→08:42)
[2018-07-30 07:34] LABS: HEMOGLOBIN 9.3 g/dL (12.0-16.0); MEAN CELL VOLUME 80.6 fl (80.0-105.0); MEAN CORPUSCULAR HEMOGLOBIN 25.4 pg (25.0-35.0); MEAN CORPUSCULAR HGB CONC 31.5 g/dl (31.0-37.0); MEAN PLATELET VOLUME 9.4 fl (7.0-11.0); RBC 3.66 10^6/uL (3.5-6.1); RED CELL DISTRIBUTION WIDTH 14.5 % (11.5-14.5); WHITE BLOOD COUNT 11.1 10^3/uL (4.5-11.0)
[2018-07-30 08:24] LABS: ALB/GLOB RATIO 0.9 (1.1-1.8); ALBUMIN 2.8 g/dL (3.0-4.8); ALT/SGPT 21 U/L (7-56); AST/SGOT 25 U/L (14-36); BLOOD UREA NITROGEN 10 mg/dL (7-21); CALCIUM 8.3 mg/dL (8.4-10.5); GFR NON-AFRICAN AMERICAN > 60
--- NOTE | 2018-07-30 08:38 | CP.PCM.PCO ---
Physician Communication Note - Physician Communication Note Physician Communication Note: Scheduled for L ROMEOA tomorrow AM. Hold afternoon dose of lovenox.
[2018-07-30] MEDS ORDERED: Magnesium Sulfate 2 gm/50 ml 2 GM/50 ML BAG IVPB ONE (08:40)
[2018-07-30] MEDS ORDERED: Potassium Chloride 20 mEq ER Tab PO ONE (08:41)
[2018-07-30] MEDS: Sodium Chloride 0.9% 1,000 ML IV SCH ×2 (08:43→10:20)
--- NOTE | 2018-07-30 10:37 | CP.PCM.PN ---
<Hernesto Mesa - Last Filed: 07/30/18 10:34> Subjective - Date & Time of Evaluation Date of Evaluation: 07/30/18 Time of Evaluation: 10:34 - Subjective Subjective: Podiatry consult note for Dr. Bojorquez 72 y/o female patient seen and evaluated at bedside in for left foot gangrene. Patient was resting in her bed, getting bathed. Patient is AAOX3. Denies of any pain to her foot today.. Patient denies any other pedal complaint at this time. She denies any overnight N/V/F/C/SOB/CP recently. Objective - Vital Signs/Intake and Output Vital Signs (last 24 hours): Temp Pulse Resp BP Pulse Ox 97.4 F L 93 H 21 161/77 H 96 07/30/18 06:00 07/30/18 06:00 07/30/18 06:00 07/30/18 06:00 07/30/18 06:00 Intake and Output: 07/30/18 07/30/18 06:59 18:59 Intake Total 1560 Output Total 3 Balance 1557 - Medications Medications: Current Medications Alprazolam (Xanax) 0.25 mg PO BID PRN; Protocol PRN Reason: Anxiety Stop: 08/01/18 19:29 Last Admin: 07/29/18 18:53 Dose: 0.25 mg Amlodipine Besylate (Norvasc) 5 mg PO DAILY [facility] Last Admin: 07/29/18 10:15 Dose: 5 mg Apixaban (Eliquis) 2.5 mg PO BID [facility]; Protocol Last Admin: 07/27/18 10:37 Dose: 2.5 mg Aspirin (Aspirin Chewable) 81 mg PO DAILY [facility] Last Admin: 07/29/18 10:23 Dose: 81 mg Atorvastatin Calcium (Lipitor) 40 mg PO DIN [facility] Last Admin: 07/29/18 18:28 Dose: 40 mg Enoxaparin Sodium (Lovenox) 30 mg SC 0600,1800 [facility]; Protocol Last Admin: 07/30/18 08:42 Dose: Not Given Sodium Chloride (Sodium Chloride 0.9%) 1,000 mls @ 100 mls/hr IV .Q10H [facility] Last Admin: 07/30/18 08:43 Dose: Not Given Piperacillin Sod/Tazobactam Sod (Zosyn 3.375 In Ns 100ml) 100 mls @ 25 mls/hr IVPB Q8 [facility]; Protocol Stop: 08/03/18 22:01 Last Admin: 07/30/18 04:18 Dose: 25 mls/hr Isosorbide Mononitrate (Imdur) 60 mg PO DAILY [facility] Last Admin: 07/29/18 10:15 Dose: 60 mg Losartan Potassium (Cozaar) 100 mg PO DAILY [facility] Last Admin: 07/29/18 10:23 Dose: 100 mg Morphine Sulfate (Morphine) 2 mg IVP Q4H PRN PRN Reason: Pain, moderate (4-7) Last Admin: 07/28/18 22:19 Dose: 2 mg Ondansetron HCl (Zofran Tab) 4 mg PO TID PRN PRN Reason: Nausea/Vomiting Pantoprazole Sodium (Protonix Ec Tab) 40 mg PO 0600 [facility] Last Admin: 07/30/18 08:42 Dose: Not Given Sitagliptin Phosphate (Januvia) 50 mg PO DAILY [facility] Last Admin: 07/29/18 10:23 Dose: 50 mg Zolpidem Tartrate (Ambien) 5 mg PO HS [facility]; Protocol Last Admin: 07/29/18 22:44 Dose: 5 mg - Labs Labs: 07/30/18 06:30 07/30/18 06:30 - Constitutional Appears: Well, Non-toxic, No Acute Distress - Extremities Exam Additional comments: Dressing is clean, dry and intact. No strikethrough noted - Neurological Exam Neurological Exam: Alert, Awake, Oriented x3 Assessment and Plan - Assessment and Plan (Free Text) Assessment: 72 y/o female patient seen at bedside for for left foot gangrene Plan: Patient seen and evaluated Plan discussed in details with attending Dr. Bojorquez Labs and vitals reviewed - afebrile, present leukocytosis LE ELISABET/PVR; Left foot waveform improved to preinterventional study. R sever SFA and tibial occlusive disease. Foot dresseing left intact - Dressing to be changed by nurse, nurse notified Wound culture: Enterobacter Cloacae Ssp Cloac, klebsiella pneumonae Ssp Pneum, Staph aureus. Patient will not heal if she has TMA, Patient needs BKA. Discussed with the patient and her son her current left foot condition and the plan of treatment. No podiatric intervention planned at this time. Surgery planning a case for Tuesday Podiatry will continue to follow up the patient while in house. <Romulo Bojorquez - Last Filed: 07/31/18 10:21> Objective - Vital Signs/Intake and Output Vital Signs (last 24 hours): Temp Pulse Resp BP Pulse Ox 98.1 F 94 H 18 164/89 H 95 07/31/18 05:43 07/31/18 05:45 07/31/18 05:43 07/31/18 05:43 07/31/18 05:43 Intake and Output: 07/31/18 07/31/18 06:59 18:59 Intake Total 1320 Output Total 3 Balance 1317 - Medications Medications: Current Medications Alprazolam (Xanax) 0.25 mg PO BID PRN; Protocol PRN Reason: Anxiety Stop: 08/01/18 19:29 Last Admin: 07/30/18 10:37 Dose: 0.25 mg Amlodipine Besylate (Norvasc) 5 mg PO DAILY [facility] Last Admin: 07/30/18 10:10 Dose: 5 mg Apixaban (Eliquis) 2.5 mg PO BID [facility]; Protocol Last Admin: 07/27/18 10:37 Dose: 2.5 mg Aspirin (Aspirin Chewable) 81 mg PO DAILY [facility] Last Admin: 07/30/18 10:10 Dose: 81 mg Atorvastatin Calcium (Lipitor) 40 mg PO DIN [facility] Last Admin: 07/30/18 17:23 Dose: 40 mg Enoxaparin Sodium (Lovenox) 30 mg SC 0600,1800 [facility]; Protocol Last Admin: 07/30/18 08:42 Dose: Not Given Sodium Chloride (Sodium Chloride 0.9%) 1,000 mls @ 100 mls/hr IV .Q10H [facility] Last Admin: 07/31/18 03:30 Dose: 100 mls/hr Piperacillin Sod/Tazobactam Sod (Zosyn 3.375 In Ns 100ml) 100 mls @ 25 mls/hr IVPB Q8 [facility]; Protocol Stop: 08/03/18 22:01 Last Admin: 07/31/18 05:29 Dose: 25 mls/hr Potassium Chloride (Potassium Chloride 10 Meq/100 Ml) 10 meq in 100 mls @ 50 mls/hr IVPB Q2H [facility] Stop: 07/31/18 12:29 Last Admin: 07/31/18 08:45 Dose: 50 mls/hr Isosorbide Mononitrate (Imdur) 60 mg PO DAILY [facility] Last Admin: 07/30/18 10:10 Dose: 60 mg Losartan Potassium (Cozaar) 100 mg PO DAILY [facility] Last Admin: 07/30/18 10:10 Dose: 100 mg Morphine Sulfate (Morphine) 2 mg IVP Q4H PRN PRN Reason: Pain, moderate (4-7) Last Admin: 07/28/18 22:19 Dose: 2 mg Ondansetron HCl (Zofran Tab) 4 mg PO TID PRN PRN Reason: Nausea/Vomiting Pantoprazole Sodium (Protonix Ec Tab) 40 mg PO 0600 [facility] Last Admin: 07/31/18 05:29 Dose: 40 mg Sitagliptin Phosphate (Januvia) 50 mg PO DAILY [facility] Last Admin: 07/31/18 10:03 Dose: Not Given Zolpidem Tartrate (Ambien) 5 mg PO [facility]; Protocol Last Admin: 07/30/18 21:37 Dose: 5 mg - Labs Labs: 07/31/18 06:00 07/31/18 06:00 PT 12.9 SECONDS (9.4-12.5) H 07/31/18 06:00 INR 1.12 07/31/18 06:00 APTT 28.7 Seconds (25.1-36.5) 07/31/18 06:00 Attending/Attestation - Attestation I have personally seen and examined this patient.: Yes I have fully participated in the care of the patient.: Yes I have reviewed all pertinent clinical information, including history, physical exam and plan: Yes
--- NOTE | 2018-07-30 11:24 | CP.PCM.PN ---
Subjective - Date & Time of Evaluation Date of Evaluation: 07/30/18 Time of Evaluation: 06:00 - Subjective Subjective: Awake, alert, no distress Reason for consultation and follow up: Cardiac evaluation and pre-op clearance for possible leg surgery. History of hypertension, hyperlipidemia, chronic vascular disease of the left leg. Seen and examined by me and Dr. Walsh COVERING for Dr. Lei Rivera Objective - Vital Signs/Intake and Output Vital Signs (last 24 hours): Temp Pulse Resp BP Pulse Ox 97.4 F L 93 H 21 154/79 H 96 07/30/18 06:00 07/30/18 10:10 07/30/18 06:00 07/30/18 10:10 07/30/18 06:00 Intake and Output: 07/30/18 07/30/18 06:59 18:59 Intake Total 1560 Output Total 3 Balance 1557 - Medications Medications: Current Medications Alprazolam (Xanax) 0.25 mg PO BID PRN; Protocol PRN Reason: Anxiety Stop: 08/01/18 19:29 Last Admin: 07/30/18 10:37 Dose: 0.25 mg Amlodipine Besylate (Norvasc) 5 mg PO DAILY [facility] Last Admin: 07/30/18 10:10 Dose: 5 mg Apixaban (Eliquis) 2.5 mg PO BID [facility]; Protocol Last Admin: 07/27/18 10:37 Dose: 2.5 mg Aspirin (Aspirin Chewable) 81 mg PO DAILY [facility] Last Admin: 07/30/18 10:10 Dose: 81 mg Atorvastatin Calcium (Lipitor) 40 mg PO DIN [facility] Last Admin: 07/29/18 18:28 Dose: 40 mg Enoxaparin Sodium (Lovenox) 30 mg SC 0600,1800 [facility]; Protocol Last Admin: 07/30/18 08:42 Dose: Not Given Sodium Chloride (Sodium Chloride 0.9%) 1,000 mls @ 100 mls/hr IV .Q10H [facility] Last Admin: 07/30/18 10:20 Dose: 100 mls/hr Piperacillin Sod/Tazobactam Sod (Zosyn 3.375 In Ns 100ml) 100 mls @ 25 mls/hr IVPB Q8 [facility]; Protocol Stop: 08/03/18 22:01 Last Admin: 07/30/18 04:18 Dose: 25 mls/hr Isosorbide Mononitrate (Imdur) 60 mg PO DAILY [facility] Last Admin: 07/30/18 10:10 Dose: 60 mg Losartan Potassium (Cozaar) 100 mg PO DAILY [facility] Last Admin: 07/30/18 10:10 Dose: 100 mg Morphine Sulfate (Morphine) 2 mg IVP Q4H PRN PRN Reason: Pain, moderate (4-7) Last Admin: 07/28/18 22:19 Dose: 2 mg Ondansetron HCl (Zofran Tab) 4 mg PO TID PRN PRN Reason: Nausea/Vomiting Pantoprazole Sodium (Protonix Ec Tab) 40 mg PO 0600 [facility] Last Admin: 07/30/18 08:42 Dose: Not Given Sitagliptin Phosphate (Januvia) 50 mg PO DAILY [facility] Last Admin: 07/30/18 10:10 Dose: 50 mg Zolpidem Tartrate (Ambien) 5 mg PO HS [facility]; Protocol Last Admin: 07/29/18 22:44 Dose: 5 mg - Labs Labs: 07/30/18 06:30 07/30/18 06:30 - Constitutional Appears: Non-toxic, No Acute Distress - Head Exam Head Exam: NORMAL INSPECTION, NORMOCEPHALIC - Eye Exam Eye Exam: Normal appearance Pupil Exam: NORMAL ACCOMODATION - ENT Exam ENT Exam: Mucous Membranes Moist, Normal Exam - Respiratory Exam Respiratory Exam: Decreased Breath Sounds, NORMAL BREATHING PATTERN - Cardiovascular Exam Cardiovascular Exam: REGULAR RHYTHM, +S1, +S2 - GI/Abdominal Exam GI & Abdominal Exam: Soft, Normal Bowel Sounds - Extremities Exam Additional comments: left leg dressing - Neurological Exam Neurological Exam: Alert, Awake, Oriented x3 - Psychiatric Exam Psychiatric exam: Normal Affect, Normal Mood - Skin Skin Exam: Dry, Normal Color, Warm Assessment and Plan - Assessment and Plan (Free Text) Assessment: A 72 year old female who came in to the ER due to left foot pain and infection. History of hypertension, hyperlipidemia, chronic vascular disease of the left leg, diabetes, congestive heart failure, coronary artery disease post stents ( bare-metal) of Proximal and distal RCA on 06/19/18 and a week before that stents on mid LAD. Patient resistant to Plavix so was put on Effient. Last Echo on 05/12/18 showed moderately decreased LV function. limited echo study. Evaluated by surgery and for possible left below knee amputation on Monda y.Patient denies chest pain, no shortness of breath. No evidence of ischemia or heart failure. Cleared for surgery with moderate risk. Plan: Denies shortness of breath Denies chest pain Anxious about surgery Heart rate controlled Blood pressure controlled Continue current medications Continue current treatment Cleared for surgery from cardiac standpoint with moderate risk For possible left leg surgery tomorrow NPO post midnight except medications Hold anticoagulants Replenish potassium and magnesium Will follow up postoperatively Plan and treatment discussed with Dr. Walsh COVERING Dr. Rivera
--- NOTE | 2018-07-30 12:41 | PN ---
DATE: 07/30/2018 SUBJECTIVE: Planning for an amputation in the morning. The consent was signed with the son and the patient, I think this is straight forward. We planned to do this expedition tomorrow. OBJECTIVE: Vital signs are normal. LABORATORY DATA: Shows the white count of 11 and platelet count normal. will be supplemented. Gato Mansfiled MD
--- NOTE | 2018-07-30 15:20 | PN ---
DATE: 07/30/2018 SUBJECTIVE: The patient is in bed, in no acute distress, nontoxic. PHYSICAL EXAMINATION: VITAL SIGNS: Temperature is 97, blood pressure is 160/70, respiratory rate of 18, heart rate of 98. HEENT: Unremarkable. NECK: Supple. LUNGS: Have decreased breath sounds. HEART: Normal S1, S2. ABDOMEN: Soft. LABORATORY DATA: Laboratory examination reveals a white count of 11,000 and microbiology reveals Enterobacter cloacae, Klebsiella and Staph aureus. Review of orders reveals the patient to be on Zosyn which requires renewal, which we will do so. ASSESSMENT AND PLAN: A 72-year-old female with left foot ischemia changes, peripheral vascular disease, peripheral arterial disease scheduled for transmetatarsal amputation for tomorrow, status post lower extremity angioplasty,deep venous thrombosis, chronic congestive heart failure. Currently on Zosyn alone, has sensitive staph and has sensitive Enterobacter and Klebsiella. Vancomycin was discontinued. We will continue Zosyn pending amputation and pathology and operating room culture results and duration and antibiotic to be determined by pathology and operating room cultures. Dakota Stewart MD
--- NOTE | 2018-07-30 17:00 | PN ---
DATE: 07/30/2018 SUBJECTIVE: She is resting in bed. She understands tomorrow she is going to go for a left BKA due to the ischemic changes of her left foot and gangrenous areas. She has CHF and CAD. She is currently on Ambien, aspirin, and Cozaar. Eliquis is on hold. Imdur, Januvia, Lipitor, Lovenox is on hold in the future. Morphine, Norvasc, Protonix, IV fluids and Xanax, Zofran and Zosyn. PHYSICAL EXAMINATION: GENERAL: She understands what is going on. At least, she has accepted it a little bit better. She is not crying as much; just a little bit of tears but she understands, she is smiling. VITAL SIGNS: She has a 97.4 temperature, 93 pulse, 161/77 blood pressure and also 154/79 blood pressure, 21 respiratory rate, 96% saturation on O2. HEENT: Atraumatic, normocephalic. HEART: Regular rate. LUNGS: Decreased breath sounds but clear. ABDOMEN: Soft, nontender. Positive bowel sounds. EXTREMITIES: The left foot is all wrapped up. LABORATORY DATA: She has 11.1 white count, 9.3 hemoglobin, 29.5 hematocrit with 257 platelets. She has a 141 sodium and potassium of 3.2, we will replace the potassium. BUN is 10, creatinine 0.94, GFR is greater than 60 , sugar is 121, calcium is 8.3, phosphorous 3.2, magnesium 1.5, total bilirubin is 0.3, AST is 25, ALT is 21, alkaline phosphatase is 83, total protein is 6. PLAN: She is being seen by surgery, Podiatry, and Infectious Disease and the plan is to do a BKA tomorrow. Cardiology should be doing a preop clearance and Dr. Walsh. Continue with aggressive treatment and care. We will check her labs tomorrow and she should do well with the surgery I am hoping. Apolinar Chisholm DO MTDAshlee
[2018-07-31] MEDS: Sodium Chloride 0.9% 1,000 ML IV SCH (03:30)
[2018-07-31] MEDS: Piperacillin/Tazobact 3.375 gm 100 ML IVPB SCH ×3 (05:29→23:23)
[2018-07-31] MEDS: Pantoprazole 40 mg EC Tab PO SCH (05:29)
[2018-07-31 06:30] LABS: HEMOGLOBIN 9.9 g/dL (12.0-16.0); MEAN CELL VOLUME 80.8 fl (80.0-105.0); MEAN CORPUSCULAR HEMOGLOBIN 25.7 pg (25.0-35.0); MEAN CORPUSCULAR HGB CONC 31.8 g/dl (31.0-37.0); MEAN PLATELET VOLUME 9.4 fl (7.0-11.0); RBC 3.85 10^6/uL (3.5-6.1); RED CELL DISTRIBUTION WIDTH 14.8 % (11.5-14.5); WHITE BLOOD COUNT 10.6 10^3/uL (4.5-11.0)
[2018-07-31 06:33] LABS: INR 1.12; PARTIAL THROMBOPLASTIN TIME 28.7 Seconds (25.1-36.5); PROTHROMBIN TIME 12.9 SECONDS (9.4-12.5)
[2018-07-31 06:42] LABS: ALB/GLOB RATIO 0.9 (1.1-1.8); ALBUMIN 2.8 g/dL (3.0-4.8); ALT/SGPT 16 U/L (7-56); AST/SGOT 23 U/L (14-36); BLOOD UREA NITROGEN 9 mg/dL (7-21); CALCIUM 8.6 mg/dL (8.4-10.5); GFR NON-AFRICAN AMERICAN > 60
--- NOTE | 2018-07-31 08:19 | PN ---
DATE: 07/30/2018 LOCATION: The patient is in room 262, bed 1. This note is being dictated on behalf of Dr. Rivera whom we are covering. Reason for consultation is ulcer on the foot, infection, possible gangrene, peripheral vascular disease, diabetes, congestive heart failure, coronary artery disease, history of bare-metal stent in the past in RCA on 06/19/2018 and a week before a stent in mid LAD. The patient was receiving Plavix, was put on Effient. Last echo on 05/12/2018 showed moderately decreased LV function, limited echo study. The patient from cardiac point of view is asymptomatic and cardiac status is stable. The patient can go for surgery as a moderate risk. There is no absolute contraindication for surgery, and rest of the medication and therapy is same as mentioned in Kirsten Castillo's note. Fanta Walsh MD
--- NOTE | 2018-07-31 09:20 | CP.PCM.PN ---
<Ubaldo Florez - Last Filed: 07/31/18 12:18> Subjective - Date & Time of Evaluation Date of Evaluation: 07/31/18 Time of Evaluation: 09:20 - Subjective Subjective: Podiatry consult note for Dr. Mcintosh 72 y/o female patient seen and evaluated at bedside in for left foot gangrene. Patient was resting in her bed, Patient is AAOX3. Denies of any pain to her foot today. Patient denies any other pedal complaint at this time. She denies any overnight N/V/F/C/SOB/CP recently. Patient is aware that she is going for BKA amputation today afternoon. Objective - Vital Signs/Intake and Output Vital Signs (last 24 hours): Temp Pulse Resp BP Pulse Ox 98.1 F 94 H 18 164/89 H 95 07/31/18 05:43 07/31/18 05:45 07/31/18 05:43 07/31/18 05:43 07/31/18 05:43 Intake and Output: 07/31/18 07/31/18 06:59 18:59 Intake Total 1320 Output Total 3 Balance 1317 - Medications Medications: Current Medications Alprazolam (Xanax) 0.25 mg PO BID PRN; Protocol PRN Reason: Anxiety Stop: 08/01/18 19:29 Last Admin: 07/30/18 10:37 Dose: 0.25 mg Amlodipine Besylate (Norvasc) 5 mg PO DAILY [facility] Last Admin: 07/30/18 10:10 Dose: 5 mg Apixaban (Eliquis) 2.5 mg PO BID [facility]; Protocol Last Admin: 07/27/18 10:37 Dose: 2.5 mg Aspirin (Aspirin Chewable) 81 mg PO DAILY [facility] Last Admin: 07/30/18 10:10 Dose: 81 mg Atorvastatin Calcium (Lipitor) 40 mg PO DIN [facility] Last Admin: 07/30/18 17:23 Dose: 40 mg Enoxaparin Sodium (Lovenox) 30 mg SC 0600,1800 [facility]; Protocol Last Admin: 07/30/18 08:42 Dose: Not Given Sodium Chloride (Sodium Chloride 0.9%) 1,000 mls @ 100 mls/hr IV .Q10H [facility] Last Admin: 07/31/18 03:30 Dose: 100 mls/hr Piperacillin Sod/Tazobactam Sod (Zosyn 3.375 In Ns 100ml) 100 mls @ 25 mls/hr IVPB Q8 [facility]; Protocol Stop: 08/03/18 22:01 Last Admin: 07/31/18 05:29 Dose: 25 mls/hr Potassium Chloride (Potassium Chloride 10 Meq/100 Ml) 10 meq in 100 mls @ 50 mls/hr IVPB Q2H [facility] Stop: 07/31/18 12:29 Last Admin: 07/31/18 08:45 Dose: 50 mls/hr Isosorbide Mononitrate (Imdur) 60 mg PO DAILY [facility] Last Admin: 07/30/18 10:10 Dose: 60 mg Losartan Potassium (Cozaar) 100 mg PO DAILY [facility] Last Admin: 07/30/18 10:10 Dose: 100 mg Morphine Sulfate (Morphine) 2 mg IVP Q4H PRN PRN Reason: Pain, moderate (4-7) Last Admin: 07/28/18 22:19 Dose: 2 mg Ondansetron HCl (Zofran Tab) 4 mg PO TID PRN PRN Reason: Nausea/Vomiting Pantoprazole Sodium (Protonix Ec Tab) 40 mg PO 0600 [facility] Last Admin: 07/31/18 05:29 Dose: 40 mg Sitagliptin Phosphate (Januvia) 50 mg PO DAILY [facility] Last Admin: 07/30/18 10:10 Dose: 50 mg Zolpidem Tartrate (Ambien) 5 mg PO HS [facility]; Protocol Last Admin: 07/30/18 21:37 Dose: 5 mg - Labs Labs: 07/31/18 06:00 07/31/18 06:00 PT 12.9 SECONDS (9.4-12.5) H 07/31/18 06:00 INR 1.12 07/31/18 06:00 APTT 28.7 Seconds (25.1-36.5) 07/31/18 06:00 - Constitutional Appears: Well, No Acute Distress - Head Exam Head Exam: ATRAUMATIC, NORMOCEPHALIC - Extremities Exam Additional comments: Left lower extremity exam: Vascular: DP/PT non-palpable. Temperature gradient warm to warm on from proximal to distal, no edema noted. Pinpoint erythematous lesions medeiros of left tibia. black gangrenous changes noted to the left toe all the toes. Erythema noted at the left foot proximal to the gangrenous toes. Neuro: protective and gross sensations are grossly intact Derm: black gangrenous changes noted to the left toe all the toes. Erythema noted at the left foot proximal to the gangrenous toes. MSK: Pain on palpation to the left foot. Muscle power couldn't be assessed at the left foot due to pain and guarding. - Neurological Exam Neurological Exam: Alert, Awake, Oriented x3 Assessment and Plan - Assessment and Plan (Free Text) Assessment: 72 y/o female patient seen and evaluated at the bedside for for left foot gangrene. Plan: Patient seen and evaluated Plan discussed in details with attending Dr. Mcintosh Labs, charts and vitals reviewed - afebrile, Absent leukocytosis LE ELISABET/PVR; Left foot waveform improved to pre-interventional study. R sever SFA and tibial occlusive disease. Left foot dressing done using betadine and DSD. Wound culture: Enterobacter Cloacae Ssp Cloac, klebsiella pneumonae Ssp Pneum, Staph aureus. Patient will not heal if she has TMA, Patient needs BKA. Discussed with the patient and her son her current left foot condition and the plan of treatment. No podiatric intervention planned at this time. Patient is going for BKA amputation today afternoon with surgery. Podiatry will continue to follow up the patient while in house. <Ute Mcintosh - Last Filed: 08/14/18 14:45> Objective - Vital Signs/Intake and Output Vital Signs (last 24 hours): Temp Pulse Resp BP Pulse Ox 97.1 F L 92 H 19 156/73 H 94 L 08/08/18 12:00 08/08/18 12:00 08/08/18 12:00 08/08/18 12:00 08/08/18 06:00 - Labs Labs: 08/07/18 06:00 08/07/18 06:00 PT 12.9 SECONDS (9.4-12.5) H 07/31/18 06:00 INR 1.12 07/31/18 06:00 APTT 28.7 Seconds (25.1-36.5) 07/31/18 06:00 Attending/Attestation - Attestation I have personally seen and examined this patient.: Yes I have fully participated in the care of the patient.: Yes I have reviewed all pertinent clinical information, including history, physical exam and plan: Yes
--- NOTE | 2018-07-31 10:37 | PN ---
DATE: 07/31/2018 SUBJECTIVE: The patient is without chest pain, without shortness of breath. PHYSICAL EXAMINATION: VITAL SIGNS: Stable. NECK: Negative JVD. LUNGS: Without rales. HEART: S1, S2. EXTREMITIES: Left lower extremity still bandaged. LABORATORY DATA: Hemoglobin is 9.9. Chemistries, BUN and creatinine are unremarkable. Glucose 148. ASSESSMENT: 1. Stable post multivessel percutaneous transluminal coronary angioplasty. 2. Ischemic lower extremity. 3. Peripheral vascular disease. 4. Diabetes mellitus. 5. Anemia. 6. Ischemic cardiomyopathy. PLAN: Given these findings, the patient is at moderate risk for the planned surgery today. Her cardiac status is at its optimum. Lei Rivera MD
--- NOTE | 2018-07-31 10:37 | PN ---
DATE: 07/31/2018 SUBJECTIVE: The plan for her is to go for a left BKA due to her left foot ischemia and gangrene of the toes. She is on Ambien, aspirin, Cozaar, Eliquis on hold, Imdur, Januvia, Lipitor, Lovenox on hold, morphine, Norvasc, Protonix, IV fluids, Xanax, Zofran and Zosyn. OBJECTIVE: VITAL SIGNS: 98.1 temperature, 94 pulse, 164/89 blood pressure, 18 respiratory rate, 95% O2 sat on room air. HEENT: Head: Atraumatic, normocephalic. HEART: Regular rate. LUNGS: Decreased breath sounds but clear. ABDOMEN: Soft. EXTREMITIES: The left foot is bandaged. NEUROLOGIC: She is very nervous, anxious, understands the situation. She wants us get through at this time. LABORATORY DATA: She has a 10.6 white count, 9.9 hemoglobin, 31.1 hematocrit with 290 platelets. 141 sodium, potassium 3.6, BUN 9, creatinine 0.9, GFR is greater than 60, sugar is 134, calcium is 8.6, phosphorous 3.2, magnesium 1.8, total bili is 0.2, AST is 23, ALT is 16, alk phos 94, total protein is 6. She Enterobacter cloacae and Klebsiella pneumoniae, staph aureus. She is being seen by Surgery, Infectious Disease, Podiatry, Cardiology. PLAN: The plan is to do the surgery of left BKA and then eventually she should go to [facility] and I will do the plan from there after the surgery. Rick Chisholm DO
--- NOTE | 2018-07-31 10:51 | CP.PCM.PN ---
Subjective - Date & Time of Evaluation Date of Evaluation: 07/31/18 Time of Evaluation: 10:10 - Subjective Subjective: Patient is waiting for her surgery today, no nausea, no fevers, no increase in left foot pain. Objective - Vital Signs/Intake and Output Vital Signs (last 24 hours): Temp Pulse Resp BP Pulse Ox 97.7 F 92 H 18 156/83 H 92 L 07/30/18 18:00 07/30/18 22:00 07/30/18 18:00 07/30/18 18:00 07/30/18 18:00 Intake and Output: 07/30/18 07/31/18 18:59 06:59 Intake Total 480 Output Total 3 Balance 477 - Medications Medications: Current Medications Alprazolam (Xanax) 0.25 mg PO BID PRN; Protocol PRN Reason: Anxiety Stop: 08/01/18 19:29 Last Admin: 07/30/18 10:37 Dose: 0.25 mg Amlodipine Besylate (Norvasc) 5 mg PO DAILY [facility] Last Admin: 07/30/18 10:10 Dose: 5 mg Apixaban (Eliquis) 2.5 mg PO BID [facility]; Protocol Last Admin: 07/27/18 10:37 Dose: 2.5 mg Aspirin (Aspirin Chewable) 81 mg PO DAILY [facility] Last Admin: 07/30/18 10:10 Dose: 81 mg Atorvastatin Calcium (Lipitor) 40 mg PO DIN [facility] Last Admin: 07/30/18 17:23 Dose: 40 mg Enoxaparin Sodium (Lovenox) 30 mg SC 0600,1800 [facility]; Protocol Last Admin: 07/30/18 08:42 Dose: Not Given Sodium Chloride (Sodium Chloride 0.9%) 1,000 mls @ 100 mls/hr IV .Q10H [facility] Last Admin: 07/30/18 10:20 Dose: 100 mls/hr Piperacillin Sod/Tazobactam Sod (Zosyn 3.375 In Ns 100ml) 100 mls @ 25 mls/hr IVPB Q8 [facility]; Protocol Stop: 08/03/18 22:01 Last Admin: 07/30/18 21:37 Dose: 25 mls/hr Isosorbide Mononitrate (Imdur) 60 mg PO DAILY [facility] Last Admin: 07/30/18 10:10 Dose: 60 mg Losartan Potassium (Cozaar) 100 mg PO DAILY [facility] Last Admin: 07/30/18 10:10 Dose: 100 mg Morphine Sulfate (Morphine) 2 mg IVP Q4H PRN PRN Reason: Pain, moderate (4-7) Last Admin: 07/28/18 22:19 Dose: 2 mg Ondansetron HCl (Zofran Tab) 4 mg PO TID PRN PRN Reason: Nausea/Vomiting Pantoprazole Sodium (Protonix Ec Tab) 40 mg PO 0600 [facility] Last Admin: 07/30/18 08:42 Dose: Not Given Sitagliptin Phosphate (Januvia) 50 mg PO DAILY [facility] Last Admin: 07/30/18 10:10 Dose: 50 mg Zolpidem Tartrate (Ambien) 5 mg PO HS [facility]; Protocol Last Admin: 07/30/18 21:37 Dose: 5 mg - Labs Labs: 07/30/18 06:30 07/30/18 06:30 - Constitutional Appears: Chronically Ill - Head Exam Head Exam: NORMAL INSPECTION - Respiratory Exam Respiratory Exam: Decreased Breath Sounds - Cardiovascular Exam Cardiovascular Exam: +S1, +S2 - GI/Abdominal Exam GI & Abdominal Exam: Soft. absent: Tenderness - Extremities Exam Additional comments: left foot with dressings in place Assessment and Plan - Assessment and Plan (Free Text) Plan: Assessment left foot ischemic changes with PVD, need to get transmetatarsal amputation, wound growing Klebsiella, Enterobacter, MSSA S/P left lower extremity angioplasty DVT chronic CHF CAD S/P PCI Plan continue Zosyn and will continue to monitor clinically patient is for possible BKA today - discussed with Dr. Chisholm and will await results of the surgery
[2018-07-31] MEDS ORDERED: HYDROmorphone 2 mg/ml ISec IVP PRN (15:18)
--- NOTE | 2018-07-31 20:31 | PN ---
DATE: 07/29/2018 This progress note is being dictated on behalf of Dr. Rivera, whom I am covering. SUBJECTIVE: The patient denies any chest pain, shortness of breath, or palpitation. The patient is lying flat in bed without any cardiac symptoms. PHYSICAL EXAMINATION VITAL SIGNS: Blood pressure 149/66, respirations 20, pulse 90, temperature 98.8. HEENT: Head is normocephalic. Eyes, pupils normal. Conjunctivae, slightly pale. NECK: JVP low. Carotid equal. THORAX: AP diameter normal. LUNGS: No significant rales. CARDIOVASCULAR: S1, S2. ABDOMEN: Soft, nontender. There is no organomegaly. EXTREMITIES: 1+ pitting edema. Dressing on the left foot. LABORATORY DATA: Shows WBC 9.9, hemoglobin 9.8, hematocrit 31.4, platelet is 285. Sodium 141, potassium 3.4, BUN 12, creatinine 1.1. Phosphorus, magnesium, total bilirubin, AST, ALT are normal. DIAGNOSES: Left lower extremity gangrene; severe peripheral vascular disease, status post multivessel coronary artery angioplasty and stent insertion; history of pulmonary embolism; uncontrolled diabetes mellitus. PLAN: Continue aspirin daily, Cozaar 100 mg daily. Eliquis is on hold for planned amputation, below knee, on Tuesday. The patient is on Lipitor 20 mg daily, subcutaneous Lovenox 30 mg twice a day, vancomycin 750 mg IV 12 hourly, Zosyn 3.375 g intravenously every 8 hours. We will continue present therapy. We will give some potassium therapy to the patient, and we will repeat labs in the morning. We will follow with you. Fanta Walsh MD
[2018-08-01 06:42] LABS: ALB/GLOB RATIO 0.9 (1.1-1.8); ALBUMIN 2.8 g/dL (3.0-4.8); ALT/SGPT 25 U/L (7-56); AST/SGOT 24 U/L (14-36); BLOOD UREA NITROGEN 12 mg/dL (7-21); CALCIUM 8.6 mg/dL (8.4-10.5); GFR NON-AFRICAN AMERICAN 54
[2018-08-01 06:55] LABS: HEMOGLOBIN 8.7 g/dL (12.0-16.0); MEAN CELL VOLUME 80.9 fl (80.0-105.0); MEAN CORPUSCULAR HEMOGLOBIN 25.2 pg (25.0-35.0); MEAN CORPUSCULAR HGB CONC 31.2 g/dl (31.0-37.0); MEAN PLATELET VOLUME 9.1 fl (7.0-11.0); RBC 3.45 10^6/uL (3.5-6.1); RED CELL DISTRIBUTION WIDTH 15.1 % (11.5-14.5); WHITE BLOOD COUNT 10.6 10^3/uL (4.5-11.0)
[2018-08-01] MEDS: Piperacillin/Tazobact 3.375 gm 100 ML IVPB SCH ×3 (06:57→22:56)
[2018-08-01] MEDS: Pantoprazole 40 mg EC Tab PO SCH (06:57)
[2018-08-01] MEDS ORDERED: Etomidate 20 mg/10ml Inj IV ONE (08:13)
[2018-08-01] MEDS ORDERED: Succinylcholine 200 mg/10 ml Inj IV ONE (08:13)
[2018-08-01] MEDS ORDERED: Midazolam 2 MG/2 ML VIAL ONE (08:13)
[2018-08-01] MEDS ORDERED: Rocuronium 10 mg/ml (5 ml) ONE (08:13)
[2018-08-01] MEDS ORDERED: Propofol 10 mg/ml Inj (20 ML) ONE (08:13)
[2018-08-01] MEDS ORDERED: Bupivacaine 0.5% 50 ML IJ ONE ×2 (09:21→09:22)
--- NOTE | 2018-08-01 09:38 | CP.PCM.PCO ---
Physician Communication Note - Physician Communication Note Physician Communication Note: patient is in OR for BKA
[2018-08-01] MEDS ORDERED: Neostigmine Methylsulfate 3mg/3ml Syringe IV ONE (10:37)
[2018-08-01] MEDS ORDERED: Morphine 2 mg/ml ISec IVP PRN (10:42)
[2018-08-01] MEDS ORDERED: Lactated Ringer's 1,000 ML IV SCH (10:45)
--- NOTE | 2018-08-01 11:25 | PCM.SURG1 ---
Surgeon's Initial Post Op Note - Surgeon's Notes Surgeon: Dr. Mansfield Facility Engineer: Dr. Johnston PGY3, PGY2 Type of Anesthesia: General Endo Pre-Operative Diagnosis: Left lower extremity Dry Gangrene Operative Findings: see op report Post-Operative Diagnosis: as above Operation Performed: Left Below the knee amputation Specimen/Specimens Removed: Left leg Estimated Blood Loss: EBL {In ML}: 50 Drains Used: Constantine Post-Op Condition: Good Date of Surgery/Procedure: 08/01/18 Time of Surgery/Procedure: 11:14 (Dictation # [id number])
[2018-08-01] MEDS ORDERED: Morphine 4 mg/ml ISec ONE ×2 (11:27→11:43)
--- NOTE | 2018-08-01 12:44 | PCM.ANESB3 ---
Femoral Nerve Block - Femoral Nerve Block Date of Procedure: 08/01/18 Anesthesiologist: karla Pre-Procedure Diagnosis: oa Post-Procedure Diagnosis: oa Procedure Performed: Femoral Nerve Block Left - Procedure Femoral Nerve Block: The procedure was explained to the patient that it is for the post-operative pain management. Consent was obtained after a thorough discussion with the patient regarding the benefits and possible complications of local anesthetic block of the femoral nerve at the inguinal crease area. The patient was brought to the operating room and standard monitors were applied. Time-out was held with the circulating nurse to confirm the correct surgery and the appropriate block. After completion of procedure, patient was placed in supine position with fully extended lower extremities and the ___left groin exposed. The femoral artery was then carefully palpated. The ultrasound transducer was then applied to this area in the transverse plane and the femoral nerve was visualized lateral to the femoral artery and underneath the fascia iliaca. After thorough identification, the inguinal crease area was prepped with Betadine solution three times. At this point, a #22 gauge Stimuplex 2-inch needle was inserted immediately lateral to the femoral artery pulse at the inguinal crease and advanced perpendicularly. The needle was inserted to the ultrasound transducer in-plane towards the femoral nerve in a [id number] direction. Needle advancement was performed carefully under direct ultrasound visualization. After negative aspiration, __30___cc of ___.5__% _bupi was injected. Under ultrasound guidance the local anesthetics were observed spreading below fascia iliaca and around the femoral nerve. The needle was removed intact and sterile dressing was applied. The patient had stable vital signs, tolerated the femoral nerve block well with stable vital signs and was taken to pacu stable.
[2018-08-01] MEDS: 0.125% Bupivacaine in 0.9% NS 400mL On Q pump IJ SCH (12:56)
[2018-08-01] MEDS ORDERED: Morphine 4 mg/ml ISec IVP PRN (13:05)
[2018-08-01] MEDS: Sodium Chloride 0.9% 1,000 ML IV SCH (13:23)
--- NOTE | 2018-08-01 13:49 | PN ---
CARDIOLOGY FOLLOWUP DATE: 08/01/2018 SUBJECTIVE: The patient tolerated surgery well. PHYSICAL EXAMINATION VITAL SIGNS: Blood pressure is 168/71, heart rate is in the 90s. NECK: Negative JVD. LUNGS: Without rales. HEART: S1, S2. EXTREMITIES: Bandaged left lower extremity. LABORATORY DATA: Hemoglobin is 8.7. Chemistry is unremarkable. IMPRESSION: 1. Status post surgery to the left lower extremity. 2. Stable angina, post percutaneous transluminal coronary angioplasty and stent. 3. Diabetes mellitus. 4. Anemia. PLAN: Given these findings, we will continue to monitor on telemetry in the next 24 hours postoperatively. Lei Rivera MD
--- NOTE | 2018-08-01 14:16 | CP.PCM.PCO ---
<Ubaldo Florez - Last Filed: 08/01/18 14:14> Physician Communication Note - Physician Communication Note Physician Communication Note: Patient underwent BKA today. Podiatry signs off the pt. <Romulo Bojorquez - Last Filed: 08/02/18 16:55> Attending/Attestation - Attestation I have personally seen and examined this patient.: Yes I have fully participated in the care of the patient.: Yes I have reviewed all pertinent clinical information: Yes
--- NOTE | 2018-08-01 14:32 | PN ---
DATE: 08/01/2018 SUBJECTIVE: She was supposed to go to her surgery yesterday, but there was a problem with surgery and emergency associate put off to hold this morning. She is going to go this morning for a left BKA due to left foot ischemia and gangrene. She was mentally prepared, discussed with the family this morning. She is on Ambien, aspirin, Cozaar, Eliquis is on hold, Imdur, Januvia, Lipitor, Lovenox is on hold, morphine, Norvasc, Protonix, IV fluids, Xanax, Zofran, and Zosyn. She was given one dose of Dilaudid last night due to extreme pain and she had adverse reaction, so we are going to just her anymore and just give morphine, she understands that, so as the son, but she is comfortable and ready for the procedure. PHYSICAL EXAMINATION: GENERAL: Alert, oriented x3 VITAL SIGNS: She has 98 temp, 88 pulse, 161/85 blood pressure, and 18 respiratory rate. HEENT: Atraumatic, normocephalic. Throat is moist. NECK: Supple. HEART: Regular rete. LUNGS: Decreased breath sounds, but clear. ABDOMEN: Soft. EXTREMITIES: Left foot is bandaged. LABORATORY DATA: She has a 10.6 white count, 8.7 hemoglobin, 27.9 hematocrit with 265 platelets. Might give her transfusion after the surgery or during the surgery. She has a 142 sodium, potassium 3.4, I will give her a rider of potassium this morning, BUN 12, creatinine 1, GFR 64, sugar is 105, calcium is 8.6, total bilirubin 0.2, AST is 24, ALT is 25, alk phos 34, total protein 6.1. ASSESSMENT AND PLAN: She is being seen by infectious disease, cardiology, surgery. Hope that she would do very today and I think she will need to go to [facility] at [facility] and we will see how she does. Apolinar Chisholm DO MTDAshlee
[2018-08-01] MEDS ORDERED: Morphine 4 mg/ml ISec IVP ONE (17:12)
--- NOTE | 2018-08-01 23:10 | OP ---
PROCEDURE DATE: 08/01/2018 PREOPERATIVE DIAGNOSIS: Left lower extremity dry gangrene. POSTOPERATIVE DIAGNOSIS: Left lower extremity dry gangrene. PROCEDURE: Left [id number] amputation. SURGEON: Gato Mansfield MD SHUTTLER CAR: Pratik Barrios DO ANESTHESIA: General anesthesia. BRIEF SUMMARY: This is a 72-year-old female with a nonhealing left lower extremity dry gangrene. The patient was refractory to medical therapy. Decision was made by the patient and family members to undergo left [id number] amputation. The risks of surgical intervention were discussed with the patient, and she elected to undergo surgical intervention. DESCRIPTION OF PROCEDURE: Procedure was performed under general anesthesia. The patient was placed in supine position. The left lower extremity was prepped and draped in the usual sterile fashion. An occlusive dressing was applied up to the foot above the ankle. Tourniquet was placed to 300 mmHg. At this time, anterior and posterior skin incisions were outlined with a marking pen. An anterior incision was made 4 fingerbreadths below the tibial plateau. Excision was extended one third in circumference, and an extended posterior flap was placed measuring 15 cm. The skin and subcutaneous tissues were incised down to the fascia. The greater and short saphenous veins were ligated and divided using a 3-0 Vicryl. The fascia and the muscles were then divided with electrocautery at the same level of the anterior skin incision. The muscles and anterolateral compartments were divided exposing anterior tibial vessels, which were ligated with a 3-0 Vicryl. The interosseus membrane was then incised. The tibial periosteum was incised circumferentially with electrocautery at the same level of the skin and muscle division. Using a periosteal elevator, the tibial periosteum was proximally by about 3 cm. The tibia was then transected with an electric saw. The tibia was then exposed, dissected circumferentially, and transected again with the bone cutter 2 cm proximal to the tibial division. The amputation was then completed with an amputation knife, transecting the psoas muscles obliquely and the gastrocnemius muscle at the same level of the posterior flap. Bleeding sural vein and posterior tibial and peroneal vessels were clamped and oversewn with 2-[address] 1. The short bony edges were then filed limiting bony prominences over the anterior aspect of the tibia and fibula. The fascia of the anterior and posterior flaps was approximated with interrupted 3-0 Vicryl. Prior to this, appropriate hemostasis was achieved using hydrogen peroxide. All bleeding vessels were cauterized. At this time, On-Q bupivacaine pump was then tunneled sub fascia. A 19-Constantine drain was placed followed by fascia of the anterior and posterior muscle flaps approximated with 3-0 Vicryl. The skin was approximated with skin jesus and 3-0 nylon. The skin was dressed with Xeroform, 4x4, Kerlix, and Tushar bandage. All counts were correct at the end of the procedure. The patient tolerated the procedure well and was taken to post-anesthesia care unit in stable condition. Pratik Barrios DO Gato Mansfield MD
[2018-08-02] MEDS: Pantoprazole 40 mg EC Tab PO SCH (05:37)
[2018-08-02] MEDS: Piperacillin/Tazobact 3.375 gm 100 ML IVPB SCH ×3 (05:37→21:46)
[2018-08-02 06:48] LABS: HEMOGLOBIN 8.7 g/dL (12.0-16.0); MEAN CORPUSCULAR HEMOGLOBIN 26.3 pg (25.0-35.0); MEAN CORPUSCULAR HGB CONC 32.5 g/dl (31.0-37.0); MEAN PLATELET VOLUME 9.5 fl (7.0-11.0); RBC 3.31 10^6/uL (3.5-6.1); RED CELL DISTRIBUTION WIDTH 15.1 % (11.5-14.5); WHITE BLOOD COUNT 15.7 10^3/uL (4.5-11.0)
[2018-08-02 07:04] LABS: ALB/GLOB RATIO 0.9 (1.1-1.8); ALBUMIN 2.7 g/dL (3.0-4.8); CALCIUM 8.3 mg/dL (8.4-10.5)
[2018-08-02] MEDS ORDERED: Potassium Chloride 20 mEq ER Tab PO ONE (07:59)
[2018-08-02] MEDS: Potassium Chloride 20 mEq ER Tab PO SCH (08:28)
--- NOTE | 2018-08-02 08:37 | PN ---
DATE: 08/02/2018 CARDIOLOGY FOLLOWUP SUBJECTIVE: The patient's pain is well controlled. She feels well this morning. OBJECTIVE: VITAL SIGNS: Blood pressure 157/79, heart rate in the 70s. NEC: Negative JVD. LUNGS: Without rales. HEART: Reveals S1, S2. EXTREMITIES: Status post amputation of left lower extremity. LABORATORY DATA: Hemoglobin is 8.7, white count is 15.7, BUN and creatinine unremarkable. IMPRESSION: 1. Status post gangrene of left lower extremity. 2. Status post amputation. 3. Stable angina. 4. History of multivessel percutaneous transluminal coronary angioplasty and stent. 5. History of pulmonary embolism. The patient is back on her aspirin as well as Eliquis. Hemodynamically, the patient is doing well. We will continue her aspirin and Eliquis, the patient had bare-metal stents placed. Lei Rivera MD
--- NOTE | 2018-08-02 08:52 | PN ---
DATE: 08/02/2018 SUBJECTIVE: She is resting comfortably in bed. She had a left BKA for ischemic foot. She is comfortable, little bit of pain. OBJECTIVE: VITAL SIGNS: She has a 100.3 temperature, 69 pulse, 166/85 blood pressure, 19 respiratory rate, 93% O2 sat. GENERAL: She understands she has to go to [facility] before she goes home. She is eating okay, just uncomfortable after surgery. HEENT: Head: Atraumatic, normocephalic. HEART: Regular rate. LUNGS: Decreased breath sounds but clear. ABDOMEN: Soft, nontender. Positive bowel sounds. EXTREMITIES: The left leg has a BKA now bandaged. MEDICATIONS: She is on Ambien, aspirin, Cozaar, Eliquis, Imdur, Januvia, potassium, Lipitor, Lovenox, morphine, Protonix, Zofran and Zosyn. LABORATORY DATA: Her white count bumped to 15.7, could be reaction to the surgery but she is on antibiotics, 8.7 hemoglobin, hematocrit 26.8, platelets of 283, hemoglobin, 141 sodium, potassium 3.1, replaced potassium. BUN 11, creatinine 1.1, GFR is 49. Sugar is 140, calcium is 8.3, total bili is 0.3, AST is 30, ALT is 20, alk phos 87, total protein is 5.9. She is being seen by Cardiology, Infectious Disease, Surgery and my plan is to get a subacute rehab at [facility] or [facility] or [place] or [place] before she goes home, hopefully in the next day or two will get there. Rick Chisholm DO [facility]
[2018-08-02] MEDS: 0.125% Bupivacaine in 0.9% NS 400mL On Q pump IJ SCH (09:50)
--- NOTE | 2018-08-02 11:19 | CP.PCM.PCO ---
Physician Communication Note - Physician Communication Note Physician Communication Note: POD #1, +MAU, low grade temp continue antibiotics, PT eval pending
--- NOTE | 2018-08-02 11:39 | CP.PCM.PN ---
Subjective - Date & Time of Evaluation Date of Evaluation: 08/02/18 Time of Evaluation: 10:00 - Subjective Subjective: Patient seen and examined. No acute events over night. Patient reports pain is now well controlled with On Q and morphine. Tmax of 100.3. MAU output 70cc serosanguinous. Objective - Vital Signs/Intake and Output Vital Signs (last 24 hours): Temp Pulse Resp BP Pulse Ox 100.3 F H 112 H 19 145/71 93 L 08/02/18 06:00 08/02/18 10:00 08/02/18 06:00 08/02/18 09:56 08/02/18 06:00 Intake and Output: 08/02/18 08/02/18 06:59 18:59 Intake Total 120 Balance 120 - Medications Medications: Current Medications Amlodipine Besylate (Norvasc) 5 mg PO DAILY [facility] Last Admin: 08/02/18 09:56 Dose: 5 mg Apixaban (Eliquis) 2.5 mg PO BID [facility]; Protocol Last Admin: 07/27/18 10:37 Dose: 2.5 mg Aspirin (Aspirin Chewable) 81 mg PO DAILY [facility] Last Admin: 08/02/18 09:54 Dose: 81 mg Atorvastatin Calcium (Lipitor) 40 mg PO DIN [facility] Last Admin: 08/01/18 17:46 Dose: 40 mg Enoxaparin Sodium (Lovenox) 30 mg SC 0600,1800 [facility]; Protocol Last Admin: 07/30/18 08:42 Dose: Not Given Piperacillin Sod/Tazobactam Sod (Zosyn 3.375 In Ns 100ml) 100 mls @ 25 mls/hr IVPB Q8 [facility]; Protocol Stop: 08/03/18 22:01 Last Admin: 08/02/18 05:37 Dose: 25 mls/hr Isosorbide Mononitrate (Imdur) 60 mg PO DAILY [facility] Last Admin: 08/02/18 09:55 Dose: 60 mg Losartan Potassium (Cozaar) 100 mg PO DAILY [facility] Last Admin: 08/02/18 09:56 Dose: 100 mg Morphine Sulfate (Morphine) 2 mg IVP Q15M PRN PRN Reason: Pain, moderate (4-7) Last Admin: 08/01/18 11:25 Dose: 2 mg Morphine Sulfate (Morphine) 4 mg IVP Q4H PRN PRN Reason: Pain, moderate (4-7) Ondansetron HCl (Zofran Tab) 4 mg PO TID PRN PRN Reason: Nausea/Vomiting Last Admin: 07/31/18 17:01 Dose: 4 mg Ondansetron HCl (Zofran Inj) 4 mg IVP ONCE PRN PRN Reason: Nausea/Vomiting Pantoprazole Sodium (Protonix Ec Tab) 40 mg PO 0600 [facility] Last Admin: 08/02/18 05:37 Dose: 40 mg Potassium Chloride (K-Dur 20 Meq Er Tab) 20 meq PO BRK [facility] Last Admin: 08/02/18 08:28 Dose: 20 meq Sitagliptin Phosphate (Januvia) 50 mg PO DAILY [facility] Last Admin: 08/02/18 09:56 Dose: 50 mg Zolpidem Tartrate (Ambien) 5 mg PO HS [facility]; Protocol Last Admin: 08/01/18 22:55 Dose: 5 mg - Labs Labs: 08/02/18 06:00 08/02/18 06:00 PT 12.9 SECONDS (9.4-12.5) H 07/31/18 06:00 INR 1.12 07/31/18 06:00 APTT 28.7 Seconds (25.1-36.5) 07/31/18 06:00 - Constitutional Appears: No Acute Distress - Head Exam Head Exam: NORMOCEPHALIC - Eye Exam Eye Exam: EOMI, Normal appearance - ENT Exam ENT Exam: Mucous Membranes Moist - Respiratory Exam Respiratory Exam: NORMAL BREATHING PATTERN - Cardiovascular Exam Cardiovascular Exam: Tachycardia, +S1, +S2 - GI/Abdominal Exam GI & Abdominal Exam: Soft - Neurological Exam Neurological Exam: Alert, Awake, Oriented x3 - Psychiatric Exam Psychiatric exam: Normal Mood - Skin Skin Exam: Dry, Intact, Warm Assessment and Plan - Assessment and Plan (Free Text) Assessment: 72F with left forefoot gangrene s/p left BKA POD1 Plan: Heart healthy diet ABx Analgesic PRN Anti-emetic prn F/u drain output F/u CXR Restart DVT ppx Knee immobilizer PT D/w Dr. Donal Ramos PGY3
[2018-08-02] MEDS ORDERED: Magnesium Sulfate 2 gm/50 ml 2 GM/50 ML BAG IVPB ONE (11:43)
--- NOTE | 2018-08-02 13:02 | RAD ---
Date of service: 08/02/2018 HISTORY: post op COMPARISON: 07/25/2018. FINDINGS: LUNGS: The lungs are well inflated. There is moderate pulmonary venous congestion. There is airspace disease in the right lower lobe. PLEURA: Bilateral layering effusions. No pneumothorax. CARDIOVASCULAR: The heart is normal in size. Atherosclerotic aortic arch calcifications are present. OSSEOUS STRUCTURES: Within normal limits for the patient's age. VISUALIZED UPPER ABDOMEN: Normal. OTHER FINDINGS: None. IMPRESSION: Congestive heart failure. Consolidation in the right lower lobe could be related to compressive atelectasis however superimposed pneumonia cannot be excluded. Follow-up is advised.
[2018-08-02] MEDS: Enoxaparin 30 mg Syringe SC SCH (17:23)
--- NOTE | 2018-08-02 21:28 | CP.PCM.PN ---
Subjective - Date & Time of Evaluation Date of Evaluation: 08/02/18 Time of Evaluation: 10:00 - Subjective Subjective: Left leg feels better, had amputation yesterday. Having low grade fevers. Objective - Vital Signs/Intake and Output Vital Signs (last 24 hours): Temp Pulse Resp BP Pulse Ox 98.1 F 94 H 18 164/89 H 95 07/31/18 05:43 07/31/18 05:45 07/31/18 05:43 07/31/18 05:43 07/31/18 05:43 Intake and Output: 07/31/18 07/31/18 06:59 18:59 Intake Total 1320 Output Total 3 Balance 1317 - Medications Medications: Current Medications Alprazolam (Xanax) 0.25 mg PO BID PRN; Protocol PRN Reason: Anxiety Stop: 08/01/18 19:29 Last Admin: 07/30/18 10:37 Dose: 0.25 mg Amlodipine Besylate (Norvasc) 5 mg PO DAILY [facility] Last Admin: 07/30/18 10:10 Dose: 5 mg Apixaban (Eliquis) 2.5 mg PO BID [facility]; Protocol Last Admin: 07/27/18 10:37 Dose: 2.5 mg Aspirin (Aspirin Chewable) 81 mg PO DAILY [facility] Last Admin: 07/30/18 10:10 Dose: 81 mg Atorvastatin Calcium (Lipitor) 40 mg PO DIN [facility] Last Admin: 07/30/18 17:23 Dose: 40 mg Enoxaparin Sodium (Lovenox) 30 mg SC 0600,1800 [facility]; Protocol Last Admin: 07/30/18 08:42 Dose: Not Given Sodium Chloride (Sodium Chloride 0.9%) 1,000 mls @ 100 mls/hr IV .Q10H [facility] Last Admin: 07/31/18 03:30 Dose: 100 mls/hr Piperacillin Sod/Tazobactam Sod (Zosyn 3.375 In Ns 100ml) 100 mls @ 25 mls/hr IVPB Q8 [facility]; Protocol Stop: 08/03/18 22:01 Last Admin: 07/31/18 05:29 Dose: 25 mls/hr Potassium Chloride (Potassium Chloride 10 Meq/100 Ml) 10 meq in 100 mls @ 50 mls/hr IVPB Q2H [facility] Stop: 07/31/18 12:29 Last Admin: 07/31/18 08:45 Dose: 50 mls/hr Isosorbide Mononitrate (Imdur) 60 mg PO DAILY [facility] Last Admin: 07/30/18 10:10 Dose: 60 mg Losartan Potassium (Cozaar) 100 mg PO DAILY [facility] Last Admin: 07/30/18 10:10 Dose: 100 mg Morphine Sulfate (Morphine) 2 mg IVP Q4H PRN PRN Reason: Pain, moderate (4-7) Last Admin: 07/28/18 22:19 Dose: 2 mg Ondansetron HCl (Zofran Tab) 4 mg PO TID PRN PRN Reason: Nausea/Vomiting Pantoprazole Sodium (Protonix Ec Tab) 40 mg PO 0600 [facility] Last Admin: 07/31/18 05:29 Dose: 40 mg Sitagliptin Phosphate (Januvia) 50 mg PO DAILY [facility] Last Admin: 07/31/18 10:03 Dose: Not Given Zolpidem Tartrate (Ambien) 5 mg PO HS [facility]; Protocol Last Admin: 07/30/18 21:37 Dose: 5 mg - Labs Labs: 07/31/18 06:00 07/31/18 06:00 PT 12.9 SECONDS (9.4-12.5) H 07/31/18 06:00 INR 1.12 07/31/18 06:00 APTT 28.7 Seconds (25.1-36.5) 07/31/18 06:00 - Constitutional Appears: No Acute Distress, Chronically Ill - Head Exam Head Exam: NORMAL INSPECTION - Respiratory Exam Respiratory Exam: Decreased Breath Sounds - Cardiovascular Exam Cardiovascular Exam: +S1, +S2 - GI/Abdominal Exam GI & Abdominal Exam: Soft. absent: Tenderness - Extremities Exam Additional comments: left leg with dressings in place Assessment and Plan - Assessment and Plan (Free Text) Plan: Assessment left foot ischemic changes with PVD, growing Klebsiella, Enterobacter, MSSA, S/P left BKA POD #1 S/P left lower extremity angioplasty DVT chronic CHF CAD S/P PCI Plan continue Zosyn and will continue to monitor clinically, trend fever curve
[2018-08-03] MEDS: Pantoprazole 40 mg EC Tab PO SCH (05:25)
[2018-08-03] MEDS: Enoxaparin 30 mg Syringe SC SCH (05:25)
[2018-08-03] MEDS: Piperacillin/Tazobact 3.375 gm 100 ML IVPB SCH ×3 (05:25→21:17)
[2018-08-03 06:32] LABS: BASO # 0.04 K/mm3 (0.0-2.0); BASO % 0.2 % (0.0-3.0); EOS # 0.3 (0.0-0.7); EOS % 1.8 % (1.5-5.0); GRAN # 13.68 (1.4-6.5); GRAN % 83.6 % (50.0-68.0); HEMOGLOBIN 8.4 g/dL (12.0-16.0); LYMPH # 1.4 (1.2-3.4); LYMPH % 8.7 % (22.0-35.0); MEAN CELL VOLUME 80.9 fl (80.0-105.0); MEAN CORPUSCULAR HEMOGLOBIN 25.5 pg (25.0-35.0); MEAN CORPUSCULAR HGB CONC 31.6 g/dl (31.0-37.0); MEAN PLATELET VOLUME 9.5 fl (7.0-11.0); MONO # 0.9 (0.1-0.6); MONO % 5.7 % (1.0-6.0); RBC 3.29 10^6/uL (3.5-6.1); RED CELL DISTRIBUTION WIDTH 15.4 % (11.5-14.5); WHITE BLOOD COUNT 16.4 10^3/uL (4.5-11.0)
[2018-08-03 07:04] LABS: ALB/GLOB RATIO 0.8 (1.1-1.8); ALBUMIN 2.7 g/dL (3.0-4.8); CALCIUM 8.2 mg/dL (8.4-10.5)
[2018-08-03] MEDS ORDERED: Morphine 2 mg/ml ISec IVP PRN (07:41)
--- NOTE | 2018-08-03 08:45 | PN ---
DATE: 08/03/2018 SUBJECTIVE: She is status post day #2 of her left BKA. She is resting comfortably in bed. She is in pain. She is currently on Ambien, aspirin, bupivacaine, Cozaar, Eliquis, Imdur, Januvia, potassium replacement, Lasix as a one-time dose of 20 mg IV, Lipitor, Lovenox, magnesium replacement, morphine, Norvasc, Protonix, Tylenol, Zofran and Zosyn. I am going to decrease the morphine from 4 mg to 2 mg IV every 4 hours. She is alert in bed. She tells me she can move the left leg. She could not do it before, now she can which is a good thing. PHYSICAL EXAMINATION: VITAL SIGNS: She has a 100.2 temperature, 86 pulse, 97 O2 sat, 152/76 blood pressure and 102 pulse. HEENT: Head is atraumatic, normocephalic. She is talking in Cypriot this morning with a oil well logging engineer. Usually, she talks to me in Croatian. Maybe the morphine was too strong, this is one of the reasons why decreased the morphine. HEART: Regular rate with decreased breath sounds, but mild congestion. CHEST: X-ray showed a possible right lower lobe atelectasis versus pneumonia versus CHF. I gave her a shot of Lasix, called in pulmonary and see what Cardiology had to say about that. ABDOMEN: Soft. EXTREMITIES: Her left leg is bandaged in a brace, status post left BKA. LABORATORY DATA: She has a 139 sodium, potassium 3.6, BUN 30, creatinine 1.2, GFR is 44, sugar is 159, calcium is 8.2, phosphorous 2.9, magnesium 2, better, total bili is 0.3, AST is 20, ALT is 23, alk phos 91, total protein 6.1. White count of 16.4 when elevated, hemoglobin is 8.4, hematocrit 26.6, platelets 284. I will see what Pulmonary has to add, also see if Infectious Disease wants to change the antibiotics around as the white count has gone up. Give her dose of Lasix and hopefully we will get her to subacute rehab at [facility] or [place]. I discussed this with her and the family. Rick Chisholm DO [facility] # [id number]
[2018-08-03] MEDS: Potassium Chloride 20 mEq ER Tab PO SCH (08:53)
[2018-08-03] MEDS: 0.125% Bupivacaine in 0.9% NS 400mL On Q pump IJ SCH (10:56)
--- NOTE | 2018-08-03 10:56 | CP.PCM.PCO ---
Physician Communication Note - Physician Communication Note Physician Communication Note: low grade temp, increased leukocytosis, one time tx for CHF will monitor
--- NOTE | 2018-08-03 10:56 | CP.PCM.PCO ---
Physician Communication Note - Physician Communication Note Physician Communication Note: PT recommended RAYMUNDO CM/SW D/C planning
--- NOTE | 2018-08-03 12:08 | CON ---
DATE: 08/03/2018 PULMONARY CONSULTATION REASON FOR PULMONARY CONSULTATION: Rule out pneumonia. REFERRING PHYSICIAN: Dr. Rick Chisholm. HISTORY OF PRESENT ILLNESS: The patient is a chronically ill 72-year-old female, with past medical history significant for pulmonary embolism (on Eliquis), coronary artery disease, triple-vessel angioplasty, congestive heart failure in the past, severe peripheral vascular disease, who presented to [facility] - originally on 07/25/2018 - with gangrenous changes of her left foot. The patient was thus admitted for additional evaluation. The patient did undergo a left ekoee-icn-tkfz amputation on 08/02/2018. Postoperative chest film was noted to be abnormal. I am thus asked to evaluate on this case for additional management and treatment. I did discuss the case with the patient at length. There is no history of shortness of breath at rest, dyspnea on exertion, cough, or sputum production. There is also no history of chest pain, coughing up of blood, or chest pain - made worse with deep respirations. The patient did have a low-grade fever a few days ago. The fevers have now resolved. There is no history of chills or infectious exposure. No history of night sweats, weight loss or appetite change prior to the above events. No history of calf pains. No history of syncope or diaphoresis. No history of recent travel or trauma. REVIEW OF SYSTEMS: No history of nausea, vomiting or diarrhea. No acute urinary symptoms. No new neurologic complaints. Rest of the review of systems is negative. ALLERGIES: DILAUDID. SOCIAL HISTORY: Positive for former tobacco usage. No alcohol. FAMILY HISTORY: No inheritable diseases. HOME MEDICATIONS: Include Zofran, Norvasc, Ambien, Januvia, Imdur, Lipitor, Xanax, Eliquis, Cozaar, Effient, Protonix. PHYSICAL EXAMINATION: GENERAL: The patient appears comfortable this morning. She is not short of breath at rest. VITAL SIGNS: Temperature is 98.2, pulse 86, respirations 18, blood pressure 152/76. Oxygen saturation on nasal cannula is 95%. HEENT: Normocephalic, atraumatic. No JVD. CARDIOVASCULAR: Systolic ejection murmur at the lower left sternal border. No S3 gallop. LUNGS: Decreased breath sounds at the bases. No rhonchi. No wheezing. EXTREMITIES: The patient is status post left olytt-vmr-eyyw amputation. The right lower extremity shows minimal edema. There is no cyanosis or clubbing. The right calf is nontender to palpation. GASTROINTESTINAL: Abdomen is soft, nontender and nondistended. Bowel sounds are positive. SKIN: No acute rash. NEUROLOGIC: Exam limited at the present time. PERTINENT LABORATORY DATA: Chest x-ray was done yesterday and reviewed. There are symmetrical mild bilateral pulmonary infiltrates - consistent with pulmonary edema. CBC: White count 16.4K, hemoglobin 8.4, hematocrit 26.6, platelets of 284,000. Complete metabolic profile: Chloride 110, glucose 159, calcium 8.2. B-type natriuretic peptide 8750. The rest of the metabolic profile is within normal limits. IMPRESSION: 1. Status post left bikhn-evx-wjxq amputation. 2. Left foot gangrene. 3. Severe peripheral vascular disease. 4. Mild pulmonary edema. 5. Anemia. PLAN: The patient presented to [facility] - originally on 07/25/2018 - with gangrenous changes of her left foot. The patient was then seen by Podiatry and Vascular (Dr. Lei Kirk). It was then determined that the patient would need a left sbuhz-uaz-inpz amputation. The patient did have a left bezam-lwi-ouse amputation on 08/02/2018. Postoperatively, the chest x-ray was noted to be abnormal. I am thus asked to evaluate on this case for additional management and treatment. I did review the chest x-ray as above. There are mild bilateral pulmonary infiltrates noted - consistent with pulmonary edema. I have also reviewed the laboratory data. A significant rise in the B-type nature peptide is noted. The patient was given Lasix. This morning, the patient offers no pulmonary symptoms and is quite comfortable at rest. In addition, there is no significant alveolar-arterial gradient. The patient remains on antibiotic therapy - as per Infectious Disease. Temperatures have resolved. Repeat a.m. labs are pending. Clinical status of the patient appears significantly improved - compared to the initial presentation. Again, the chest x-ray above is most consistent with pulmonary edema. However, I would certainly like to repeat a chest x-ray in a few days - for comparison. I did discuss the above with Dr. Chisholm at length. Thank you very much for this Pulmonary consultation. Bonifacio Ragland MD [facility] # [id number] [facility]
--- NOTE | 2018-08-03 12:17 | PN ---
DATE: 08/03/2018 SUBJECTIVE: The patient is in bed in no acute distress, nontoxic. The patient was seen in 262. PHYSICAL EXAMINATION: VITAL SIGNS: Temperature is 98, T-max is 100.2, blood pressure is 120/70, respiratory rate 18. HEENT: Examination is unremarkable. NECK: Supple. LUNGS: Decreased breath sounds. HEART: Normal S1, S2. ABDOMEN: Soft, nontender. LABORATORY DATA: Laboratory examination reveals a white count of 16,400, hemoglobin of 8, and platelets of 284. Chemistry reveals a BUN of 13, creatinine of 1.2. Microbiology reveals the toe cultures have Enterobacter and Klebsiella and staph. MEDICATIONS: Review of orders reveals the patient to be on Zosyn. ASSESSMENT AND PLAN: A 72-year-old female with left foot ischemic changes with peripheral vascular disease, growing Klebsiella, Enterobacter, methicillin-sensitive Staphylococcus aureus status post left below-knee amputation, postoperative day #2. We will check on the pathology report. Continue on Zosyn. We will follow closely with you. Dakota Stewart MD
--- NOTE | 2018-08-03 12:38 | PN ---
DATE: 08/03/2018 SUBJECTIVE: The patient is comfortable in bed. She is currently receiving pain medications for her wound. PHYSICAL EXAMINATION: VITAL SIGNS: Stable. Temperature was 100.2 this morning and currently is 98.2. NECK: Negative JVD. LUNGS: Without rales. HEART: Reveal S1, S2. EXTREMITIES: Status post amputation of the left lower extremity. LABORATORY DATA: White count is 16,000, hemoglobin is 6.4. Chemistries: BUN and creatinine are unremarkable with a glucose of 159. IMPRESSION: 1. Status post amputation of left lower extremities for gangrene. 2. Stable angina. 3. History of multivessel percutaneous transluminal coronary angioplasty recently. 4. History of pulmonary embolism. PLAN: Given these findings, we will continue on her baby aspirin and Eliquis. Continue pain management. Lei Rivera MD
--- NOTE | 2018-08-03 12:54 | CP.PCM.PN ---
Subjective - Date & Time of Evaluation Date of Evaluation: 08/03/18 Time of Evaluation: 06:45 - Subjective Subjective: Patient seen and examined. No acute events over night. Denies fever/chills. Stump incision examined, it is clean dry and intact. 40cc of serosanguinous drainage from eze drain. Objective - Vital Signs/Intake and Output Vital Signs (last 24 hours): Temp Pulse Resp BP Pulse Ox 98.2 F 97 H 18 150/76 93 L 08/03/18 01:30 08/03/18 10:55 08/02/18 18:12 08/03/18 10:55 08/02/18 06:00 Intake and Output: 08/03/18 08/03/18 06:59 18:59 Intake Total 1025 Output Total 41 Balance 984 - Medications Medications: Current Medications Amlodipine Besylate (Norvasc) 5 mg PO DAILY [facility] Last Admin: 08/03/18 10:55 Dose: 5 mg Apixaban (Eliquis) 2.5 mg PO BID [facility]; Protocol Last Admin: 08/03/18 10:55 Dose: 2.5 mg Aspirin (Aspirin Chewable) 81 mg PO DAILY [facility] Last Admin: 08/03/18 10:55 Dose: 81 mg Atorvastatin Calcium (Lipitor) 40 mg PO DIN [facility] Last Admin: 08/02/18 17:22 Dose: 40 mg Piperacillin Sod/Tazobactam Sod (Zosyn 3.375 In Ns 100ml) 100 mls @ 25 mls/hr IVPB Q8 [facility]; Protocol Stop: 08/03/18 22:01 Last Admin: 08/03/18 05:25 Dose: 25 mls/hr Isosorbide Mononitrate (Imdur) 60 mg PO DAILY [facility] Last Admin: 08/03/18 10:55 Dose: 60 mg Losartan Potassium (Cozaar) 100 mg PO DAILY [facility] Last Admin: 08/03/18 10:55 Dose: 100 mg Morphine Sulfate (Morphine) 2 mg IVP Q4H PRN PRN Reason: Pain, moderate (4-7) Ondansetron HCl (Zofran Tab) 4 mg PO TID PRN PRN Reason: Nausea/Vomiting Last Admin: 07/31/18 17:01 Dose: 4 mg Ondansetron HCl (Zofran Inj) 4 mg IVP ONCE PRN PRN Reason: Nausea/Vomiting Pantoprazole Sodium (Protonix Ec Tab) 40 mg PO 0600 [facility] Last Admin: 08/03/18 05:25 Dose: 40 mg Potassium Chloride (K-Dur 20 Meq Er Tab) 20 meq PO BRK [facility] Last Admin: 08/03/18 08:53 Dose: 20 meq Sitagliptin Phosphate (Januvia) 50 mg PO DAILY [facility] Last Admin: 08/03/18 10:54 Dose: 50 mg Zolpidem Tartrate (Ambien) 5 mg PO HS [facility]; Protocol Last Admin: 08/03/18 00:23 Dose: 5 mg - Labs Labs: 08/03/18 06:05 08/03/18 06:05 PT 12.9 SECONDS (9.4-12.5) H 07/31/18 06:00 INR 1.12 07/31/18 06:00 APTT 28.7 Seconds (25.1-36.5) 07/31/18 06:00 - Constitutional Appears: No Acute Distress - Head Exam Head Exam: NORMOCEPHALIC - Eye Exam Eye Exam: EOMI, Normal appearance - ENT Exam ENT Exam: Mucous Membranes Moist - Respiratory Exam Respiratory Exam: NORMAL BREATHING PATTERN - Cardiovascular Exam Cardiovascular Exam: +S1, +S2 - GI/Abdominal Exam GI & Abdominal Exam: Soft. absent: Distended, Firm, Guarding, Rigid, Tenderness, Rebound - Neurological Exam Neurological Exam: Alert, Awake, Oriented x3 - Psychiatric Exam Psychiatric exam: Normal Mood - Skin Skin Exam: Warm Assessment and Plan - Assessment and Plan (Free Text) Assessment: 72F with left forefoot gangrene s/p left BKA POD2 Plan: Monitor eze drain OnQ infusing ABx per ID Analgesics prn Physical therapy Encourage incentive spirometer use D/w Dr. Donal Ramos PGY3
[2018-08-04] MEDS: Pantoprazole 40 mg EC Tab PO SCH (05:07)
[2018-08-04 07:09] LABS: HEMOGLOBIN 8.4 g/dL (12.0-16.0); MEAN CELL VOLUME 80.5 fl (80.0-105.0); MEAN CORPUSCULAR HEMOGLOBIN 24.8 pg (25.0-35.0); MEAN CORPUSCULAR HGB CONC 30.8 g/dl (31.0-37.0); MEAN PLATELET VOLUME 9.5 fl (7.0-11.0); RBC 3.39 10^6/uL (3.5-6.1); RED CELL DISTRIBUTION WIDTH 15.5 % (11.5-14.5); WHITE BLOOD COUNT 15.9 10^3/uL (4.5-11.0)
[2018-08-04 07:50] LABS: ALB/GLOB RATIO 0.8 (1.1-1.8); ALBUMIN 2.7 g/dL (3.0-4.8); CALCIUM 8.3 mg/dL (8.4-10.5)
[2018-08-04] MEDS: 0.125% Bupivacaine in 0.9% NS 400mL On Q pump IJ SCH (09:44)
--- NOTE | 2018-08-04 09:48 | PN ---
DATE: 08/04/2018 SUBJECTIVE: The patient appears quite comfortable this morning. She is not short of breath at rest. PHYSICAL EXAMINATION: VITAL SIGNS: Temperature 98.7, pulse 100, respirations 18, blood pressure 161/95. Oxygen saturation on room air - 91%. Oxygen saturation on nasal cannula - 94%. HEENT: Normocephalic, atraumatic. NECK: No JVD. CARDIOVASCULAR: Systolic ejection murmur at the lower left sternal border. No S3 gallop. LUNGS: Decreased breath sounds at the bases. No rhonchi or wheezing. EXTREMITIES: The patient is status post left rcowt-gpu-caki amputation. The right lower extremity shows minimal edema. There is no cyanosis or clubbing. The right calf is nontender to palpation. GI: Abdomen is soft, nontender and nondistended. Bowel sounds are positive. SKIN: No acute rash. NEUROLOGIC: Exam limited at the present time. IMPRESSION: 1. Status post left rpciw-aml-kjtn amputation. 2. Left foot gangrene. 3. Severe peripheral vascular disease. 4. Mild pulmonary edema. 5. Anemia. PLAN: The patient appears comfortable this morning. She is not short of breath at rest. She does state to feeling much better overall. I did discuss the case with the night nurse at length. The night nurse stated the patient had a very good night. On physical exam, there is no significant bronchospasm noted. In addition, there is no significant alveolar-arterial gradient.. Cardiology evaluation with Dr. Rivera - is noted. The patient did receive Lasix. She is currently on Eliquis. Input by Surgery is also noted. Clinical status of the patient is certainly improved - compared to the initial presentation. However, the future status/prognosis for this chronically ill patient, with multiple comorbidities, remains very guarded. I will discuss the above with Dr. Chisholm. Bonifacio Ragland MD [facility]
[2018-08-04] MEDS: Potassium Chloride 20 mEq ER Tab PO SCH (09:57)
--- NOTE | 2018-08-04 10:05 | CP.PCM.PCO ---
Physician Communication Note - Physician Communication Note Physician Communication Note: drain removal 08/05 as per surgery, medically cleared for [facility] 08/05/18
--- NOTE | 2018-08-04 10:06 | CP.PCM.PCO ---
Physician Communication Note - Physician Communication Note Physician Communication Note: endorse to facility (1)suture, jeuss remove POD#14 today POD#3
--- NOTE | 2018-08-04 10:57 | CP.PCM.PN ---
Subjective - Date & Time of Evaluation Date of Evaluation: 08/04/18 Time of Evaluation: 10:54 - Subjective Subjective: General Surgery Progress Note for Dr. Mansfield Patient seen and examined at bedside this morning. Patient states her left LE is in a lot of pain, so physical therapy is difficult. She denies fever, chills, night sweats, chest pain, SOB, cough, n/v. Objective - Vital Signs/Intake and Output Vital Signs (last 24 hours): Temp Pulse Resp BP Pulse Ox 98.7 F 100 H 18 160/85 H 91 L 08/04/18 05:39 08/04/18 05:39 08/04/18 05:39 08/04/18 09:57 08/04/18 05:39 Intake and Output: 08/04/18 08/04/18 06:59 18:59 Intake Total 1120 Output Total 455 Balance 665 - Medications Medications: Current Medications Amlodipine Besylate (Norvasc) 10 mg PO DAILY [facility] Last Admin: 08/04/18 09:57 Dose: 10 mg Apixaban (Eliquis) 2.5 mg PO BID [facility]; Protocol Last Admin: 08/04/18 09:56 Dose: 2.5 mg Aspirin (Aspirin Chewable) 81 mg PO DAILY [facility] Last Admin: 08/04/18 09:57 Dose: 81 mg Atorvastatin Calcium (Lipitor) 40 mg PO DIN [facility] Last Admin: 08/03/18 17:47 Dose: 40 mg Potassium Chloride (Potassium Chloride 10 Meq/100 Ml) 10 meq in 100 mls @ 50 mls/hr IVPB Q2H [facility] Stop: 08/04/18 13:14 Last Admin: 08/04/18 09:57 Dose: 50 mls/hr Isosorbide Mononitrate (Imdur) 60 mg PO DAILY [facility] Last Admin: 08/04/18 09:57 Dose: 60 mg Losartan Potassium (Cozaar) 100 mg PO DAILY [facility] Last Admin: 08/04/18 09:57 Dose: 100 mg Morphine Sulfate (Morphine) 2 mg IVP Q4H PRN PRN Reason: Pain, moderate (4-7) Last Admin: 08/03/18 22:12 Dose: 2 mg Ondansetron HCl (Zofran Tab) 4 mg PO TID PRN PRN Reason: Nausea/Vomiting Last Admin: 07/31/18 17:01 Dose: 4 mg Ondansetron HCl (Zofran Inj) 4 mg IVP ONCE PRN PRN Reason: Nausea/Vomiting Pantoprazole Sodium (Protonix Ec Tab) 40 mg PO 0600 [facility] Last Admin: 08/04/18 05:07 Dose: 40 mg Potassium Chloride (K-Dur 20 Meq Er Tab) 20 meq PO BRK [facility] Last Admin: 08/04/18 09:57 Dose: 20 meq Sitagliptin Phosphate (Januvia) 50 mg PO DAILY [facility] Last Admin: 08/04/18 09:57 Dose: 50 mg Zolpidem Tartrate (Ambien) 5 mg PO HS [facility]; Protocol Last Admin: 08/03/18 21:16 Dose: 5 mg - Labs Labs: 08/04/18 06:00 08/04/18 06:00 PT 12.9 SECONDS (9.4-12.5) H 07/31/18 06:00 INR 1.12 07/31/18 06:00 APTT 28.7 Seconds (25.1-36.5) 07/31/18 06:00 - Constitutional Appears: Well - Head Exam Head Exam: ATRAUMATIC, NORMAL INSPECTION, NORMOCEPHALIC - Eye Exam Eye Exam: EOMI, Normal appearance - Neck Exam Neck Exam: Normal Inspection - Respiratory Exam Respiratory Exam: Clear to Ausculation Bilateral, NORMAL BREATHING PATTERN - Cardiovascular Exam Cardiovascular Exam: REGULAR RHYTHM. absent: Murmur - GI/Abdominal Exam GI & Abdominal Exam: Soft. absent: Firm, Guarding, Rigid, Tenderness - Extremities Exam Extremities Exam: absent: Normal Inspection Additional comments: left BKA, wrapped in SCDs and FELICITA bandage, connected to eze drain. Surgery resident previously examined the stump - no signs of infection - Neurological Exam Neurological Exam: Alert, Awake, Oriented x3. absent: Normal Gait - Psychiatric Exam Psychiatric exam: Normal Affect, Normal Mood - Skin Skin Exam: Dry, Intact, Normal Color, Warm Assessment and Plan - Assessment and Plan (Free Text) Assessment: 72F with left forefoot gangrene s/p left BKA POD3 Monitor eze drain OnQ infusing - plan to remove today, 08/04 ABx per ID Analgesics prn Physical therapy Encourage incentive spirometer use Aissatou Joseph PGY1
[2018-08-04] MEDS ORDERED: Potassium Chloride 20 mEq ER Tab PO ONE (11:29)
--- NOTE | 2018-08-04 11:47 | PN ---
DATE: 08/04/2018 SUBJECTIVE: I think she is doing that well, status post left BKA. We are waiting for Surgery to and take out the drain and she can go to a subacute rehab, physical therapy at [facility]. She is comfortable. She is alert. She is eating. She is in good spirits, better than before the surgery. PHYSICAL EXAMINATION: GENERAL: She is alert and comfortable, smiling. VITAL SIGNS: She has 98.7 temperature, 100 pulse, 161/95 blood pressure, 18 respiratory rate, and 91% O2 sat on room air. HEENT: Head: Atraumatic and normocephalic. HEART: Regular rate. LUNGS: Decreased breath sounds, but clear. ABDOMEN: Soft. EXTREMITIES: Left BKA. MEDICATIONS: She is currently on Ambien, aspirin, Cozaar at 100, Eliquis, Imdur, Januvia, potassium, Lipitor, morphine which we can stop and Norvasc, I am going to increase to 10 mg. LABORATORY DATA: She has 15.9 white count, 8.4 hemoglobin, 27.3 hematocrit, and 302 platelets. She is not on antibiotics right now and her white count is still elevated. Sodium 139, potassium is 3.2, we will replace potassium, BUN 14, creatinine 1.2, GFR is 44, sugars 135, total bili is 23, AST is 24, ALT is 29, and alk phos 92, total protein is 5.9. ASSESSMENT AND PLAN: There are few things left here. We will see what Infectious Disease want to do about the high white count, see when Surgery can pull out the [place] drain. I will increase her blood pressure medicine. She might not be able to go today. We may have to work for tomorrow, but clinically she is improving with chasing numbers. She is status post amputation left lower extremities for gangrene, status post stable angina. Rick Chisholm DO [email or web address]
--- NOTE | 2018-08-04 12:16 | CP.PCM.PN ---
Subjective - Date & Time of Evaluation Date of Evaluation: 08/04/18 Time of Evaluation: 10:45 - Subjective Subjective: Comfortable in bed but still has poor appetite, no nausea, no fevers, no diarrhea. Objective - Vital Signs/Intake and Output Vital Signs (last 24 hours): Temp Pulse Resp BP Pulse Ox 98.7 F 100 H 18 160/85 H 91 L 08/04/18 05:39 08/04/18 05:39 08/04/18 05:39 08/04/18 09:57 08/04/18 05:39 Intake and Output: 08/04/18 08/04/18 06:59 18:59 Intake Total 1120 Output Total 455 Balance 665 - Medications Medications: Current Medications Amlodipine Besylate (Norvasc) 10 mg PO DAILY [facility] Last Admin: 08/04/18 09:57 Dose: 10 mg Apixaban (Eliquis) 2.5 mg PO BID [facility]; Protocol Last Admin: 08/04/18 09:56 Dose: 2.5 mg Aspirin (Aspirin Chewable) 81 mg PO DAILY [facility] Last Admin: 08/04/18 09:57 Dose: 81 mg Atorvastatin Calcium (Lipitor) 40 mg PO DIN [facility] Last Admin: 08/03/18 17:47 Dose: 40 mg Potassium Chloride (Potassium Chloride 10 Meq/100 Ml) 10 meq in 100 mls @ 50 mls/hr IVPB Q2H [facility] Stop: 08/04/18 13:14 Last Admin: 08/04/18 09:57 Dose: 50 mls/hr Piperacillin Sod/Tazobactam Sod (Zosyn 3.375 In Ns 100ml) 100 mls @ 200 mls/hr IVPB Q8 [facility]; Protocol Stop: 08/11/18 14:01 Isosorbide Mononitrate (Imdur) 60 mg PO DAILY [facility] Last Admin: 08/04/18 09:57 Dose: 60 mg Losartan Potassium (Cozaar) 100 mg PO DAILY [facility] Last Admin: 08/04/18 09:57 Dose: 100 mg Morphine Sulfate (Morphine) 2 mg IVP Q4H PRN PRN Reason: Pain, moderate (4-7) Last Admin: 08/03/18 22:12 Dose: 2 mg Ondansetron HCl (Zofran Tab) 4 mg PO TID PRN PRN Reason: Nausea/Vomiting Last Admin: 07/31/18 17:01 Dose: 4 mg Ondansetron HCl (Zofran Inj) 4 mg IVP ONCE PRN PRN Reason: Nausea/Vomiting Pantoprazole Sodium (Protonix Ec Tab) 40 mg PO 0600 [facility] Last Admin: 08/04/18 05:07 Dose: 40 mg Potassium Chloride (K-Dur 20 Meq Er Tab) 20 meq PO BRK [facility] Last Admin: 08/04/18 09:57 Dose: 20 meq Sitagliptin Phosphate (Januvia) 50 mg PO DAILY [facility] Last Admin: 08/04/18 09:57 Dose: 50 mg Zolpidem Tartrate (Ambien) 5 mg PO HS [facility]; Protocol Last Admin: 08/03/18 21:16 Dose: 5 mg - Labs Labs: 08/04/18 06:00 08/04/18 06:00 PT 12.9 SECONDS (9.4-12.5) H 07/31/18 06:00 INR 1.12 07/31/18 06:00 APTT 28.7 Seconds (25.1-36.5) 07/31/18 06:00 - Constitutional Appears: Non-toxic, No Acute Distress, Chronically Ill - Head Exam Head Exam: NORMAL INSPECTION - Respiratory Exam Respiratory Exam: Decreased Breath Sounds - Cardiovascular Exam Cardiovascular Exam: +S1, +S2 - GI/Abdominal Exam GI & Abdominal Exam: Soft. absent: Tenderness - Extremities Exam Additional comments: left leg with dressings in place Assessment and Plan - Assessment and Plan (Free Text) Plan: Assessment left foot ischemic changes with PVD, growing Klebsiella, Enterobacter, MSSA, S/P left BKA POD #3 S/P left lower extremity angioplasty DVT chronic CHF CAD S/P PCI Plan continue Zosyn and will continue to monitor clinically, trend fever curve
--- NOTE | 2018-08-04 13:38 | CP.PCM.PCO ---
Physician Communication Note - Physician Communication Note Physician Communication Note: surgery will pull drain ok with D/C to [facility] today
--- NOTE | 2018-08-04 13:54 | CP.PCM.PCO ---
Physician Communication Note - Physician Communication Note Physician Communication Note: patient to continue zosyn x 5 days stop date 08/09/18 0915
[2018-08-04] MEDS ORDERED: Piperacillin/Tazobact 3.375 gm 100 ML IVPB SCH (14:00)
--- NOTE | 2018-08-04 14:41 | PN ---
CARDIOLOGY FOLLOWUP DATE: 08/04/2018 SUBJECTIVE: The patient remains without shortness of breath, but still complains of pain in her surgical wound. PHYSICAL EXAMINATION: VITAL SIGNS: Blood pressure 160/85 and heart rate is 100. NECK: Negative JVD. LUNGS: Without rales. HEART: S1 and S2. EXTREMITIES: Status post amputation of left lower extremity. LABORATORY DATA: Hemoglobin is 8.4. Chemistries, BUN and creatinine are unremarkable. Glucose is 136. IMPRESSION: 1. Status post amputation of lower extremity for gangrene. 2. Status post percutaneous coronary intervention. 3. History of pulmonary embolism. 4. Hypertension. 5. Hypercholesterolemia. Given these findings, we will continue on morphine p.r.n. She is on Eliquis and aspirin. Lei Rivera MD
[2018-08-04] MEDS: Piperacillin/Tazobact 3.375 gm 100 ML IVPB SCH ×4 (15:00→22:00)
[2018-08-05] MEDS: Piperacillin/Tazobact 3.375 gm 100 ML IVPB SCH ×3 (05:10→21:25)
[2018-08-05] MEDS: Pantoprazole 40 mg EC Tab PO SCH (06:00)
[2018-08-05 07:04] LABS: HEMOGLOBIN 9.3 g/dL (12.0-16.0); MEAN CELL VOLUME 80.8 fl (80.0-105.0); MEAN CORPUSCULAR HEMOGLOBIN 25.2 pg (25.0-35.0); MEAN CORPUSCULAR HGB CONC 31.2 g/dl (31.0-37.0); MEAN PLATELET VOLUME 9.7 fl (7.0-11.0); RBC 3.69 10^6/uL (3.5-6.1); RED CELL DISTRIBUTION WIDTH 15.3 % (11.5-14.5); WHITE BLOOD COUNT 13.4 10^3/uL (4.5-11.0)
[2018-08-05 07:09] LABS: ALB/GLOB RATIO 0.9 (1.1-1.8); ALBUMIN 2.9 g/dL (3.0-4.8); CALCIUM 8.5 mg/dL (8.4-10.5)
--- NOTE | 2018-08-05 08:23 | CP.PCM.PN ---
Subjective - Date & Time of Evaluation Date of Evaluation: 08/05/18 Time of Evaluation: 06:50 - Subjective Subjective: General surgery progress note for Dr. Mansfield Pt seen and examined at bedside this AM. No adverse events overnight. Patient's on-Q and eze drain were removed at bedside. Patient was complaining of increased pain at the surgical site yesterday after the on-q ran out, neurontin was started and patient had less pain overnight. Objective - Vital Signs/Intake and Output Vital Signs (last 24 hours): Temp Pulse Resp BP Pulse Ox 98.6 F 93 H 20 174/96 H 97 08/05/18 06:00 08/05/18 06:00 08/05/18 06:00 08/05/18 06:00 08/05/18 06:00 Intake and Output: 08/05/18 08/05/18 06:59 18:59 Intake Total 120 Output Total 500 Balance -380 - Medications Medications: Current Medications Amlodipine Besylate (Norvasc) 10 mg PO DAILY [facility] Last Admin: 08/04/18 09:57 Dose: 10 mg Apixaban (Eliquis) 2.5 mg PO BID [facility]; Protocol Last Admin: 08/04/18 18:21 Dose: 2.5 mg Aspirin (Aspirin Chewable) 81 mg PO DAILY [facility] Last Admin: 08/04/18 09:57 Dose: 81 mg Atorvastatin Calcium (Lipitor) 40 mg PO DIN [facility] Last Admin: 08/04/18 18:21 Dose: 40 mg Gabapentin (Neurontin) 300 mg PO TID [facility]; Protocol Piperacillin Sod/Tazobactam Sod (Zosyn 3.375 In Ns 100ml) 100 mls @ 25 mls/hr IVPB Q8 [facility]; Protocol Stop: 08/09/18 09:59 Last Admin: 08/05/18 05:10 Dose: 25 mls/hr Isosorbide Mononitrate (Imdur) 60 mg PO DAILY [facility] Last Admin: 08/04/18 09:57 Dose: 60 mg Losartan Potassium (Cozaar) 100 mg PO DAILY [facility] Last Admin: 08/04/18 09:57 Dose: 100 mg Morphine Sulfate (Morphine) 2 mg IVP Q4H PRN PRN Reason: Pain, moderate (4-7) Last Admin: 08/03/18 22:12 Dose: 2 mg Ondansetron HCl (Zofran Tab) 4 mg PO TID PRN PRN Reason: Nausea/Vomiting Last Admin: 07/31/18 17:01 Dose: 4 mg Ondansetron HCl (Zofran Inj) 4 mg IVP ONCE PRN PRN Reason: Nausea/Vomiting Pantoprazole Sodium (Protonix Ec Tab) 40 mg PO 0600 [facility] Last Admin: 08/04/18 05:07 Dose: 40 mg Potassium Chloride (K-Dur 20 Meq Er Tab) 20 meq PO BRK [facility] Last Admin: 08/04/18 09:57 Dose: 20 meq Sitagliptin Phosphate (Januvia) 50 mg PO DAILY [facility] Last Admin: 08/04/18 09:57 Dose: 50 mg Zolpidem Tartrate (Ambien) 5 mg PO HS [facility]; Protocol Last Admin: 08/05/18 00:50 Dose: 5 mg - Labs Labs: 08/05/18 06:00 08/05/18 06:00 PT 12.9 SECONDS (9.4-12.5) H 07/31/18 06:00 INR 1.12 07/31/18 06:00 APTT 28.7 Seconds (25.1-36.5) 07/31/18 06:00 - Constitutional Appears: Well, Non-toxic, No Acute Distress - Head Exam Head Exam: ATRAUMATIC, NORMOCEPHALIC - Eye Exam Eye Exam: Normal appearance. absent: Conjunctival injection, Scleral icterus - ENT Exam ENT Exam: Mucous Membranes Moist, Normal Oropharynx - Respiratory Exam Respiratory Exam: NORMAL BREATHING PATTERN. absent: Accessory Muscle Use, Respiratory Distress - Cardiovascular Exam Cardiovascular Exam: RRR - GI/Abdominal Exam GI & Abdominal Exam: Soft. absent: Distended - Extremities Exam Additional comments: left lower leg incision site well approximated with jesus, no drainage or fluctuance, eze drain with minimal amount of serosanguinous output, removed at bedside with no negative sequelae - Neurological Exam Neurological Exam: Alert, Awake, Oriented x3 - Psychiatric Exam Psychiatric exam: Normal Affect, Normal Mood - Skin Skin Exam: Dry, Normal Color, Warm Assessment and Plan - Assessment and Plan (Free Text) Assessment: 72F POD#4 s/p L BKA Plan: Continue antibiotics Continue to trend CBC while inpatient Continue PRN pain medication and scheduled neurontin Patient is clear for DC to [facility] from a surgical standpoint Continue PT and incentive spirometer use Discussed with Dr. Mansfield, who agrees with above Mary Leija, PGY2
[2018-08-05] MEDS: 0.125% Bupivacaine in 0.9% NS 400mL On Q pump IJ SCH (09:08)
[2018-08-05] MEDS: Potassium Chloride 20 mEq ER Tab PO SCH (09:48)
[2018-08-05] MEDS: Morphine 2 mg/ml ISec IVP PRN ×2 (11:36→19:22)
--- NOTE | 2018-08-05 11:39 | PN ---
DATE: 08/05/2018 PULMONARY PROGRESS NOTE SUBJECTIVE: The patient was seen and examined at bedside. She is receiving intravenous antibiotics Zosyn as well as Dilaudid for pain. PHYSICAL EXAMINATION: VITAL SIGNS: Her temperature is 98.6, pulse 93, respirations 20, pulse oximetry is 97% on room air and blood pressure 160/80. HEENT: Head, ears, nose and throat are within normal limits. NECK: Supple. There is no jugular vein distentions. No adenopathy. CARDIOVASCULAR: S1 and S2. No S3, regular. PULMONARY: Slightly diminished breath sounds at both lung bases with just few rhonchi. No wheezing. GASTROINTESTINAL: Soft and nontender. No organomegaly. EXTREMITIES: Dressings. SKIN: Dry; intact LABORATORY DATA: Reviewed from this morning WBC 13.4, hemoglobin of 9.3, platelet count 333,000. Electrolytes are within normal limits. ASSESSMENT: 1. Status post below-knee amputation left lower extremity 2. Left foot gangrene. 3. Severe peripheral vascular disease. 4. Congestive heart failure. 5. Anemia. PLAN: The patient appears comfortable this morning. She is not in any respiratory distress. Her oxygen saturation is 97% on room. There is no significant bronchospasm on exam. We will follow as necessary. Brandon Pack MD MTDD
--- NOTE | 2018-08-05 12:58 | PN ---
DATE: 08/05/2018 SUBJECTIVE: The patient's pain is somewhat better. PHYSICAL EXAMINATION: VITAL SIGNS: Blood pressure 174/96, heart rate is in the 90s. NECK: Negative JVD. LUNGS: Without rales. HEART: S1, S2. EXTREMITIES: Without edema. Left lower extremity status post amputation. LABORATORY DATA: Hemoglobin is 9.3. Chemistry: BUN and creatinine are unremarkable. IMPRESSION: 1. Status post left lower extremity amputation. 2. Stable angina. 3. Coronary artery disease. 4. Peripheral vascular disease. 5. Diabetes mellitus. 6. Hypertension. PLAN: Given these findings, I agree with increasing the Norvasc to 10 mg daily for better blood pressure control. Lei Rivera MD
--- NOTE | 2018-08-05 13:09 | PN ---
DATE: 08/05/2018 SUBJECTIVE: I was hoping to discharge her yesterday to a subacute rehab, which she needs. She is status post left BKA due to ischemic foot. She is comfortable in bed. She slept fairly well. She is in some pain. She is getting medicated. She is eating a little bit. The authorization did not come from the insurance company, so we are waiting for that to happen, hopefully Tuesday. MEDICATIONS: She is on Ambien, aspirin, Cozaar, Eliquis, Imdur, Januvia, potassium replacement, Lipitor, morphine, Neurontin, Protonix, Zofran and Zosyn. PHYSICAL EXAMINATION: VITAL SIGNS: She has 98.6 temperature; 93 pulse; 174/96 blood pressure, we will increase her blood pressure MEDICATIONS; respiratory rate 20, 97% O2 sat on room air. HEAD: Atraumatic, normocephalic. HEART: Regular rate. LUNGS: Decreased breath sounds, but clear. ABDOMEN: Soft, nontender. Positive bowel sounds. EXTREMITIES: Left BKA. LABORATORY DATA: Sodium 139, potassium 3.7, BUN 15, creatinine 1.2, GFR is 44, sugar is 100, calcium 8.5, magnesium is 1.8, total bili is 0.3, AST is 28, ALT is 23, alk phos 91, total protein 6.3. White count 13.4, coming down; hemoglobin 9.3, better; hematocrit 29.8 with platelets 333. ASSESSMENT AND PLAN: She is continuing to improve. She will be sent to a subacute rehab when authorization from insurance company happens. In the meantime, we will continue with [facility], checking her labs and hopefully she will do well. Still has had infection of the left foot, gangrene and status post below-knee amputation, left leg. Rick Chisholm DO
--- NOTE | 2018-08-05 19:06 | CP.PCM.PN ---
Subjective - Date & Time of Evaluation Date of Evaluation: 08/05/18 Time of Evaluation: 10:55 - Subjective Subjective: Still having poor appetite, no fevers, no nausea. Objective - Vital Signs/Intake and Output Vital Signs (last 24 hours): Temp Pulse Resp BP Pulse Ox 99.4 F 100 H 18 131/72 97 08/05/18 12:00 08/05/18 12:00 08/05/18 12:00 08/05/18 18:32 08/05/18 06:00 Intake and Output: 08/05/18 08/06/18 18:59 06:59 Intake Total 1020 Output Total 650 Balance 370 - Medications Medications: Current Medications Amlodipine Besylate (Norvasc) 10 mg PO DAILY [facility] Last Admin: 08/05/18 09:48 Dose: 10 mg Apixaban (Eliquis) 2.5 mg PO BID [facility]; Protocol Last Admin: 08/05/18 18:32 Dose: 2.5 mg Aspirin (Aspirin Chewable) 81 mg PO DAILY [facility] Last Admin: 08/05/18 09:48 Dose: 81 mg Atorvastatin Calcium (Lipitor) 40 mg PO DIN [facility] Last Admin: 08/05/18 18:32 Dose: 40 mg Gabapentin (Neurontin) 300 mg PO TID [facility]; Protocol Last Admin: 08/05/18 18:32 Dose: 300 mg Piperacillin Sod/Tazobactam Sod (Zosyn 3.375 In Ns 100ml) 100 mls @ 25 mls/hr IVPB Q8 [facility]; Protocol Stop: 08/09/18 09:59 Last Admin: 08/05/18 14:07 Dose: 25 mls/hr Isosorbide Mononitrate (Imdur) 60 mg PO DAILY [facility] Last Admin: 08/05/18 09:48 Dose: 60 mg Losartan Potassium (Cozaar) 100 mg PO DAILY [facility] Last Admin: 08/05/18 09:48 Dose: 100 mg Metoprolol Tartrate (Lopressor) 25 mg PO BID [facility] Last Admin: 08/05/18 18:32 Dose: 25 mg Morphine Sulfate (Morphine) 2 mg IVP Q4H PRN PRN Reason: Pain, severe (8-10) Last Admin: 08/05/18 11:36 Dose: 2 mg Ondansetron HCl (Zofran Tab) 4 mg PO TID PRN PRN Reason: Nausea/Vomiting Last Admin: 07/31/18 17:01 Dose: 4 mg Ondansetron HCl (Zofran Inj) 4 mg IVP ONCE PRN PRN Reason: Nausea/Vomiting Pantoprazole Sodium (Protonix Ec Tab) 40 mg PO 0600 [facility] Last Admin: 08/04/18 05:07 Dose: 40 mg Potassium Chloride (K-Dur 20 Meq Er Tab) 20 meq PO BRK [facility] Last Admin: 08/05/18 09:48 Dose: 20 meq Sitagliptin Phosphate (Januvia) 50 mg PO DAILY [facility] Last Admin: 08/05/18 09:48 Dose: 50 mg Zolpidem Tartrate (Ambien) 5 mg PO HS [facility]; Protocol Last Admin: 08/05/18 00:50 Dose: 5 mg - Labs Labs: 08/05/18 06:00 08/05/18 06:00 PT 12.9 SECONDS (9.4-12.5) H 07/31/18 06:00 INR 1.12 07/31/18 06:00 APTT 28.7 Seconds (25.1-36.5) 07/31/18 06:00 - Constitutional Appears: Chronically Ill - Head Exam Head Exam: NORMAL INSPECTION - Respiratory Exam Respiratory Exam: Decreased Breath Sounds - Cardiovascular Exam Cardiovascular Exam: +S1, +S2 - GI/Abdominal Exam GI & Abdominal Exam: Soft. absent: Tenderness - Extremities Exam Additional comments: left leg with dressings in place Assessment and Plan - Assessment and Plan (Free Text) Plan: Assessment left foot ischemic changes with PVD, growing Klebsiella, Enterobacter, MSSA, S/P left BKA POD #4 S/P left lower extremity angioplasty DVT chronic CHF CAD S/P PCI Plan continue Zosyn and will continue to monitor clinically, trend fever curve discussed with Dr. Chisholm
[2018-08-06] MEDS: Pantoprazole 40 mg EC Tab PO SCH (05:24)
[2018-08-06] MEDS: Piperacillin/Tazobact 3.375 gm 100 ML IVPB SCH ×3 (05:24→22:05)
[2018-08-06 07:20] LABS: HEMOGLOBIN 9.1 g/dL (12.0-16.0); MEAN CELL VOLUME 81.2 fl (80.0-105.0); MEAN CORPUSCULAR HEMOGLOBIN 25.5 pg (25.0-35.0); MEAN CORPUSCULAR HGB CONC 31.4 g/dl (31.0-37.0); MEAN PLATELET VOLUME 9.6 fl (7.0-11.0); RBC 3.57 10^6/uL (3.5-6.1); RED CELL DISTRIBUTION WIDTH 15.4 % (11.5-14.5); WHITE BLOOD COUNT 11.5 10^3/uL (4.5-11.0)
[2018-08-06 07:57] LABS: ALB/GLOB RATIO 0.8 (1.1-1.8); ALBUMIN 2.9 g/dL (3.0-4.8); CALCIUM 8.5 mg/dL (8.4-10.5)
--- NOTE | 2018-08-06 09:03 | CP.PCM.PN ---
Subjective - Date & Time of Evaluation Date of Evaluation: 08/06/18 Time of Evaluation: 07:45 - Subjective Subjective: General Surgery progress note for Dr. Mansfield Patient seen and examined this am at bedside. WINNIE per nursing. Dressing changed at bedside. Patient states that her pain is well controlled but that she has had difficulty working with PT d/t pain with movement. We discussed the importance of continuing to try to do as much as she can, she agreed. Patient otherwise denies HUGHES, CP, SOB, n/v, f/c, abdominal pain and extremity weakness. Objective - Vital Signs/Intake and Output Vital Signs (last 24 hours): Temp Pulse Resp BP Pulse Ox 98.3 F 91 H 20 140/74 99 08/06/18 00:01 08/06/18 02:00 08/06/18 00:01 08/06/18 00:01 08/06/18 00:01 Intake and Output: 08/06/18 08/06/18 06:59 18:59 Intake Total 240 Output Total 275 Balance -35 - Medications Medications: Current Medications Amlodipine Besylate (Norvasc) 10 mg PO DAILY [facility] Last Admin: 08/05/18 09:48 Dose: 10 mg Apixaban (Eliquis) 2.5 mg PO BID [facility]; Protocol Last Admin: 08/05/18 18:32 Dose: 2.5 mg Aspirin (Aspirin Chewable) 81 mg PO DAILY [facility] Last Admin: 08/05/18 09:48 Dose: 81 mg Atorvastatin Calcium (Lipitor) 40 mg PO DIN [facility] Last Admin: 08/05/18 18:32 Dose: 40 mg Gabapentin (Neurontin) 300 mg PO TID [facility]; Protocol Last Admin: 08/05/18 18:32 Dose: 300 mg Piperacillin Sod/Tazobactam Sod (Zosyn 3.375 In Ns 100ml) 100 mls @ 25 mls/hr IVPB Q8 [facility]; Protocol Stop: 08/09/18 09:59 Last Admin: 08/06/18 05:24 Dose: 25 mls/hr Isosorbide Mononitrate (Imdur) 60 mg PO DAILY [facility] Last Admin: 08/05/18 09:48 Dose: 60 mg Losartan Potassium (Cozaar) 100 mg PO DAILY [facility] Last Admin: 08/05/18 09:48 Dose: 100 mg Metoprolol Tartrate (Lopressor) 25 mg PO BID [facility] Last Admin: 08/05/18 18:32 Dose: 25 mg Morphine Sulfate (Morphine) 2 mg IVP Q4H PRN PRN Reason: Pain, severe (8-10) Last Admin: 08/05/18 19:22 Dose: 2 mg Ondansetron HCl (Zofran Tab) 4 mg PO TID PRN PRN Reason: Nausea/Vomiting Last Admin: 07/31/18 17:01 Dose: 4 mg Ondansetron HCl (Zofran Inj) 4 mg IVP ONCE PRN PRN Reason: Nausea/Vomiting Pantoprazole Sodium (Protonix Ec Tab) 40 mg PO 0600 [facility] Last Admin: 08/06/18 05:24 Dose: 40 mg Potassium Chloride (K-Dur 20 Meq Er Tab) 20 meq PO BRK [facility] Last Admin: 08/05/18 09:48 Dose: 20 meq Sitagliptin Phosphate (Januvia) 50 mg PO DAILY [facility] Last Admin: 08/05/18 09:48 Dose: 50 mg Zolpidem Tartrate (Ambien) 5 mg PO HS [facility]; Protocol Last Admin: 08/05/18 21:24 Dose: 5 mg - Labs Labs: 08/06/18 06:30 08/06/18 06:30 PT 12.9 SECONDS (9.4-12.5) H 07/31/18 06:00 INR 1.12 07/31/18 06:00 APTT 28.7 Seconds (25.1-36.5) 07/31/18 06:00 - Constitutional Appears: Well, Non-toxic, No Acute Distress - Head Exam Head Exam: ATRAUMATIC, NORMOCEPHALIC - Eye Exam Eye Exam: EOMI - ENT Exam ENT Exam: Mucous Membranes Moist - Respiratory Exam Respiratory Exam: NORMAL BREATHING PATTERN - Cardiovascular Exam Cardiovascular Exam: REGULAR RHYTHM - GI/Abdominal Exam GI & Abdominal Exam: Soft. absent: Distended, Guarding, Tenderness - Extremities Exam Additional comments: left leg BKA stump healing well, jesus in place, minimal bloody drainage on dressing, no erythema or edema, good capillary refill at incision site, new clean dressing placed this am - Neurological Exam Neurological Exam: Alert, Awake, Oriented x3 - Psychiatric Exam Psychiatric exam: Normal Affect, Normal Mood - Skin Skin Exam: Intact, Normal Color, Warm Assessment and Plan - Assessment and Plan (Free Text) Assessment: 72 yr old female s/p left BKA POD 5 Plan: c/w abx c/w daily cbc while inpatient PRN pain meds, Neurontin [facility] C4[facility] to [facility] from surgical standpoint encourage continued PT and IS use discussed with Dr. Donal Auguste, PGY 1
[2018-08-06] MEDS: 0.125% Bupivacaine in 0.9% NS 400mL On Q pump IJ SCH (09:26)
[2018-08-06] MEDS: Potassium Chloride 20 mEq ER Tab PO SCH (09:50)
[2018-08-06] MEDS ORDERED: Morphine 2 mg/ml ISec IVP PRN (10:40)
--- NOTE | 2018-08-06 11:08 | PN ---
DATE: 08/06/2018 SUBJECTIVE: I saw Tammy resting comfortably in bed. She is curious to know about going to her subacute rehab tomorrow. She has questions for me about it. She is feeling okay, some pain in the left BKA. She is on Ambien, aspirin, Cozaar, Eliquis, Imdur, Januvia, K-Dur, Lipitor, Lopressor, morphine as needed, Neurontin, Norvasc, Protonix, Zofran and Zosyn. I am also going to add some Percocet. OBJECTIVE: VITAL SIGNS: She has 98.3 temperature, 88 pulse, 158/79 blood pressure, 20 respiratory rate, 99% O2 sat on nasal cannula. HEENT: Head: Atraumatic, normocephalic. HEART: Regular rate. LUNGS: Clear to auscultation. ABDOMEN: Soft, obese, nontender. EXTREMITIES: Left BKA. She is eating okay, does like the food. She is moving her bowels. She is comfortable. Some left BKA pain. LABORATORY DATA: She has a 11.5 white count, which needs to get better, 9.1 hemoglobin, 29 hematocrit, 378 platelets. She has 139 sodium, potassium 4.1, BUN 21, creatinine 0.4, GFR 37, sugar is 121, calcium is 8.5, total bili is 0.3, AST is 32, ALT is 33, alk phos 97, total protein 6.4. She is on IV antibiotics. She is being seen by Infectious Disease, Cardiology, Surgery. She is comfortable right now. We are waiting for insurance to give the authorization to go to a subacute rehab, hopefully Tuesday tomorrow we will get the authorization, little bit of poor appetite overall but I think she is going to come around. She can continue with the Zosyn. She had left foot ischemic changes status post left BKA postop day #4 and grew Klebsiella Enterobacter. Hopefully tomorrow, we will get her to subacute rehab. Rick Chisholm DO
--- NOTE | 2018-08-06 11:26 | CP.PCM.PN ---
Subjective - Date & Time of Evaluation Date of Evaluation: 08/06/18 Time of Evaluation: 09:15 - Subjective Subjective: Comfortable in bed, no fevers. Objective - Vital Signs/Intake and Output Vital Signs (last 24 hours): Temp Pulse Resp BP Pulse Ox 99.4 F 100 H 18 131/72 97 08/05/18 12:00 08/05/18 12:00 08/05/18 12:00 08/05/18 18:32 08/05/18 06:00 Intake and Output: 08/05/18 08/06/18 18:59 06:59 Intake Total 1020 Output Total 650 Balance 370 - Medications Medications: Current Medications Amlodipine Besylate (Norvasc) 10 mg PO DAILY [facility] Last Admin: 08/05/18 09:48 Dose: 10 mg Apixaban (Eliquis) 2.5 mg PO BID [facility]; Protocol Last Admin: 08/05/18 18:32 Dose: 2.5 mg Aspirin (Aspirin Chewable) 81 mg PO DAILY [facility] Last Admin: 08/05/18 09:48 Dose: 81 mg Atorvastatin Calcium (Lipitor) 40 mg PO DIN [facility] Last Admin: 08/05/18 18:32 Dose: 40 mg Gabapentin (Neurontin) 300 mg PO TID [facility]; Protocol Last Admin: 08/05/18 18:32 Dose: 300 mg Piperacillin Sod/Tazobactam Sod (Zosyn 3.375 In Ns 100ml) 100 mls @ 25 mls/hr IVPB Q8 [facility]; Protocol Stop: 08/09/18 09:59 Last Admin: 08/05/18 14:07 Dose: 25 mls/hr Isosorbide Mononitrate (Imdur) 60 mg PO DAILY [facility] Last Admin: 08/05/18 09:48 Dose: 60 mg Losartan Potassium (Cozaar) 100 mg PO DAILY [facility] Last Admin: 08/05/18 09:48 Dose: 100 mg Metoprolol Tartrate (Lopressor) 25 mg PO BID [facility] Last Admin: 08/05/18 18:32 Dose: 25 mg Morphine Sulfate (Morphine) 2 mg IVP Q4H PRN PRN Reason: Pain, severe (8-10) Last Admin: 08/05/18 11:36 Dose: 2 mg Ondansetron HCl (Zofran Tab) 4 mg PO TID PRN PRN Reason: Nausea/Vomiting Last Admin: 12/10/18 17:01 Dose: 4 mg Ondansetron HCl (Zofran Inj) 4 mg IVP ONCE PRN PRN Reason: Nausea/Vomiting Pantoprazole Sodium (Protonix Ec Tab) 40 mg PO 0600 [facility] Last Admin: 08/04/18 05:07 Dose: 40 mg Potassium Chloride (K-Dur 20 Meq Er Tab) 20 meq PO BRK [facility] Last Admin: 08/05/18 09:48 Dose: 20 meq Sitagliptin Phosphate (Januvia) 50 mg PO DAILY [facility] Last Admin: 08/05/18 09:48 Dose: 50 mg Zolpidem Tartrate (Ambien) 5 mg PO HS [facility]; Protocol Last Admin: 08/05/18 00:50 Dose: 5 mg - Labs Labs: 08/05/18 06:00 08/05/18 06:00 PT 12.9 SECONDS (9.4-12.5) H 07/31/18 06:00 INR 1.12 07/31/18 06:00 APTT 28.7 Seconds (25.1-36.5) 07/31/18 06:00 - Constitutional Appears: Chronically Ill - Head Exam Head Exam: NORMAL INSPECTION - Respiratory Exam Respiratory Exam: Decreased Breath Sounds - Cardiovascular Exam Cardiovascular Exam: +S1, +S2 - GI/Abdominal Exam GI & Abdominal Exam: Soft. absent: Tenderness Assessment and Plan - Assessment and Plan (Free Text) Plan: Assessment left foot ischemic changes with PVD, growing Klebsiella, Enterobacter, MSSA, S/P left BKA POD #5 S/P left lower extremity angioplasty DVT chronic CHF CAD S/P PCI Plan continue Zosyn for another 2 days and will continue to monitor clinically, trend fever curve discussed with Dr. Chisholm previously
[2018-08-06] MEDS: Oxycodone/Acetaminophen 5/325 mg Tab PO PRN ×2 (14:26→22:09)
--- NOTE | 2018-08-06 21:15 | PN ---
DATE: 08/06/2018CARDIOLOGY FOLLOWUP SUBJECTIVE: The patient is resting comfortably. PHYSICAL EXAMINATION: VITAL SIGNS: Blood pressure 157/80, heart rate in the 80s. NECK: Negative JVD. CARDIOPULMONARY: S1, S2. LUNGS: Without rales. EXTREMITIES: Status post BKA in the left lower extremity. LABORATORY DATA: Hemoglobin 9.1. Chemistries, BUN and creatinine 21 and 1.4, glucose 133. IMPRESSION: 1. Stable angina. 2. Coronary artery disease. 3. Peripheral vascular disease. 4. Diabetes mellitus. 5. Status post BKA in the left lower extremity. 6. Anemia. 7. History of pulmonary embolism. PLAN: Given these findings, the patient is hemodynamically stable at this time. Lei Rivera MD
[2018-08-07] MEDS: Pantoprazole 40 mg EC Tab PO SCH (05:22)
[2018-08-07] MEDS: Piperacillin/Tazobact 3.375 gm 100 ML IVPB SCH ×3 (05:22→22:00)
[2018-08-07 06:41] LABS: HEMOGLOBIN 8.2 g/dL (12.0-16.0); MEAN CELL VOLUME 81.2 fl (80.0-105.0); MEAN CORPUSCULAR HEMOGLOBIN 24.8 pg (25.0-35.0); MEAN CORPUSCULAR HGB CONC 30.6 g/dl (31.0-37.0); MEAN PLATELET VOLUME 9.4 fl (7.0-11.0); RBC 3.3 10^6/uL (3.5-6.1); RED CELL DISTRIBUTION WIDTH 15.3 % (11.5-14.5); WHITE BLOOD COUNT 12.1 10^3/uL (4.5-11.0)
[2018-08-07 07:03] LABS: ALB/GLOB RATIO 0.8 (1.1-1.8); ALBUMIN 2.6 g/dL (3.0-4.8); CALCIUM 8.2 mg/dL (8.4-10.5)
--- NOTE | 2018-08-07 08:24 | PN ---
DATE: 08/07/2018 SUBJECTIVE: The patient appears comfortable this morning. She is not short of breath at rest. OBJECTIVE: VITAL SIGNS: Temperature is 97.6, pulse 76, respirations 19, blood pressure 136/74. Oxygen saturation on nasal cannula is 99%. HEENT: Normocephalic, atraumatic. No JVD. CARDIOVASCULAR: Systolic ejection murmur at the lower left sternal border. No S3 gallop. LUNGS: Decreased breath sounds at the bases. Otherwise clear. EXTREMITIES: The patient is status post left [id number] amputation. The right lower extremity shows no more edema. There is no cyanosis or clubbing. The right calf is nontender to palpation. GI: Abdomen is soft, nontender and nondistended. Bowel sounds are positive. SKIN: No acute rash. NEUROLOGIC: Limited at the present time. IMPRESSION: 1. Status post left [id number] amputation. 2. Left foot gangrene. 3. Severe peripheral vascular disease. 4. Mild pulmonary edema. 5. Anemia. PLAN: The patient appears quite comfortable this morning. She is not short of breath at rest. She does state to feeling much better overall. I did discuss the case with the night nurse at length. The night nurse stated the patient had a good night. On physical exam, there is no significant bronchospasm noted. In addition, the oxygen saturation on nasal cannula is now 99%. Inputs by Infectious Disease and Cardiology are also noted. Repeat a.m. labs are pending. Clinical status of the patient is significantly improved - compared to last week. Her overall prognosis remans guarded. I will discuss the above with Dr. Chisholm. Bonifacio Ragland MD [facility]
--- NOTE | 2018-08-07 08:27 | CP.PCM.PN ---
Subjective - Date & Time of Evaluation Date of Evaluation: 08/07/18 Time of Evaluation: 07:00 - Subjective Subjective: Serg Reyes, PGY1 Surgery Progress Note for Dr. Mansfield Patient was seen and examined at bedside this morning. Vital signs stable. Afebrile overnight. Dressing change was done at bedside. No fevers, chills, nausea, vomiting, diarrhea. No adverse overnight events. Objective - Vital Signs/Intake and Output Vital Signs (last 24 hours): Temp Pulse Resp BP Pulse Ox 97.4 F L 79 19 135/69 98 08/07/18 06:00 08/07/18 06:00 08/07/18 06:00 08/07/18 06:00 08/07/18 06:00 Intake and Output: 08/07/18 08/07/18 06:59 18:59 Intake Total 1520 Output Total 450 Balance 1070 - Medications Medications: Current Medications Amlodipine Besylate (Norvasc) 10 mg PO DAILY [facility] Last Admin: 08/06/18 09:51 Dose: 10 mg Apixaban (Eliquis) 2.5 mg PO BID [facility]; Protocol Last Admin: 08/06/18 17:28 Dose: 2.5 mg Aspirin (Aspirin Chewable) 81 mg PO DAILY [facility] Last Admin: 08/06/18 09:49 Dose: 81 mg Atorvastatin Calcium (Lipitor) 40 mg PO DIN [facility] Last Admin: 08/06/18 17:28 Dose: 40 mg Gabapentin (Neurontin) 300 mg PO TID [facility]; Protocol Last Admin: 08/06/18 17:29 Dose: 300 mg Piperacillin Sod/Tazobactam Sod (Zosyn 3.375 In Ns 100ml) 100 mls @ 25 mls/hr IVPB Q8 [facility]; Protocol Stop: 08/09/18 09:59 Last Admin: 08/07/18 05:22 Dose: 25 mls/hr Isosorbide Mononitrate (Imdur) 60 mg PO DAILY [facility] Last Admin: 08/06/18 09:50 Dose: 60 mg Losartan Potassium (Cozaar) 100 mg PO DAILY [facility] Last Admin: 08/06/18 09:50 Dose: 100 mg Metoprolol Tartrate (Lopressor) 25 mg PO BID [facility] Last Admin: 08/06/18 17:28 Dose: 25 mg Morphine Sulfate (Morphine) 1 mg IVP Q4H PRN PRN Reason: Pain, severe (8-10) Ondansetron HCl (Zofran Tab) 4 mg PO TID PRN PRN Reason: Nausea/Vomiting Last Admin: 07/31/18 17:01 Dose: 4 mg Oxycodone/Acetaminophen (Percocet 5/325 Mg Tab) 1 tab PO Q4H PRN PRN Reason: Pain, moderate (4-7) Stop: 08/09/18 10:42 Last Admin: 08/06/18 22:09 Dose: 1 tab Pantoprazole Sodium (Protonix Ec Tab) 40 mg PO 0600 [facility] Last Admin: 08/07/18 05:22 Dose: 40 mg Potassium Chloride (K-Dur 20 Meq Er Tab) 20 meq PO BRK [facility] Last Admin: 08/06/18 09:50 Dose: 20 meq Sitagliptin Phosphate (Januvia) 50 mg PO DAILY [facility] Last Admin: 08/06/18 09:50 Dose: 50 mg Zolpidem Tartrate (Ambien) 5 mg PO HS [facility]; Protocol Last Admin: 08/06/18 22:05 Dose: 5 mg - Labs Labs: 08/07/18 06:00 08/07/18 06:00 PT 12.9 SECONDS (9.4-12.5) H 07/31/18 06:00 INR 1.12 07/31/18 06:00 APTT 28.7 Seconds (25.1-36.5) 07/31/18 06:00 - Constitutional Appears: No Acute Distress - Head Exam Head Exam: ATRAUMATIC, NORMAL INSPECTION, NORMOCEPHALIC - Eye Exam Eye Exam: EOMI, Normal appearance, PERRL - ENT Exam ENT Exam: Mucous Membranes Moist, Normal Exam - Respiratory Exam Respiratory Exam: Clear to Ausculation Bilateral. absent: Rales, Rhonchi, Wheezes - Cardiovascular Exam Cardiovascular Exam: REGULAR RHYTHM, +S1, +S2. absent: Murmur - GI/Abdominal Exam GI & Abdominal Exam: Soft, Normal Bowel Sounds. absent: Tenderness - Extremities Exam Additional comments: Left BKA. Dressing applied with xeroform gauze and FELICITA bandage. Skin edges are well approximated with jesus. Minimal sero-sanguinous drainage from medial inc ision. No erythema or signs of infection. - Neurological Exam Neurological Exam: Alert, Awake, Oriented x3 - Skin Skin Exam: Dry, Intact, Normal Color, Warm Assessment and Plan - Assessment and Plan (Free Text) Assessment: Patient is a 72 y/o female s/p left BKA POD 6 Plan: - Vital signs and labs reviewed. Patient is cleared for discharge from surgery standpoint - f/u with Dr. Mansfield within 10 days of discharge as outpatient, including removal of surgical jesus - May apply Kerlix/FELICITA dressing to affected area - complete antibiotic course as per ID recs - pain medications upon discharge - recommend physical therapy Dispo: subacute rehab pending Case was discussed with Attending Physician, Dr. Mansfield.
--- NOTE | 2018-08-07 10:18 | DS ---
HISTORY OF PRESENT ILLNESS: She is status post left BKA for a bad peripheral left foot ischemia, CHF, CAD. She is doing well, eating her breakfast, good spirits. She is doing much better with pain. PHYSICAL EXAMINATION: VITAL SIGNS: 97.4 temperature, 79 pulse, 135/69 blood pressure, 19 respiratory rate, 90% O2 sat on room air. HEENT: Head: Atraumatic, normocephalic. HEART: Regular rate. LUNGS: Clear to auscultation. ABDOMEN: Soft. EXTREMITIES: Left BKA, doing well status post surgery. MEDICATIONS: She is currently on Ambien, aspirin, Cozaar, Eliquis, Imdur, Januvia, potassium, Lipitor, Lopressor, morphine, Neurontin, Norvasc, Percocet, Protonix, Zofran, Zosyn. LABORATORY DATA: She has a 12.1 white count, 8.2 hemoglobin, 26.8 hematocrit with 354 platelets. 141 sodium, potassium 3.9, BUN 22, creatinine 1.3, GFR is 40, sugar is 140, calcium is 8.2, total bili is 0.2, AST is 34, ALT is 35, alk phos 86, total protein is 5.8. I am hoping that she will be discharged today to subacute rehab waiting for authorization from transition social worker and insurance and case management. Hopefully, she will be discharged. Rick Chisholm DO
[2018-08-07] MEDS: Potassium Chloride 20 mEq ER Tab PO SCH (11:22)
[2018-08-07] MEDS: Oxycodone/Acetaminophen 5/325 mg Tab PO PRN ×2 (11:24→15:56)
[2018-08-07] MEDS: 0.125% Bupivacaine in 0.9% NS 400mL On Q pump IJ SCH (11:32)
--- NOTE | 2018-08-07 13:50 | CP.PCM.PN ---
Subjective - Date & Time of Evaluation Date of Evaluation: 08/07/18 Time of Evaluation: 10:20 - Subjective Subjective: Comfortable in bed, no fevers. Objective - Vital Signs/Intake and Output Vital Signs (last 24 hours): Temp Pulse Resp BP Pulse Ox 98.3 F 88 20 158/79 H 99 08/06/18 00:01 08/06/18 10:00 08/06/18 00:01 08/06/18 09:51 08/06/18 00:01 Intake and Output: 08/06/18 08/06/18 06:59 18:59 Intake Total 240 Output Total 275 Balance -35 - Medications Medications: Current Medications Amlodipine Besylate (Norvasc) 10 mg PO DAILY [facility] Last Admin: 08/06/18 09:51 Dose: 10 mg Apixaban (Eliquis) 2.5 mg PO BID [facility]; Protocol Last Admin: 08/06/18 09:50 Dose: 2.5 mg Aspirin (Aspirin Chewable) 81 mg PO DAILY [facility] Last Admin: 08/06/18 09:49 Dose: 81 mg Atorvastatin Calcium (Lipitor) 40 mg PO DIN [facility] Last Admin: 08/05/18 18:32 Dose: 40 mg Gabapentin (Neurontin) 300 mg PO TID [facility]; Protocol Last Admin: 08/06/18 09:51 Dose: 300 mg Piperacillin Sod/Tazobactam Sod (Zosyn 3.375 In Ns 100ml) 100 mls @ 25 mls/hr IVPB Q8 [facility]; Protocol Stop: 08/09/18 09:59 Last Admin: 08/06/18 05:24 Dose: 25 mls/hr Isosorbide Mononitrate (Imdur) 60 mg PO DAILY [facility] Last Admin: 08/06/18 09:50 Dose: 60 mg Losartan Potassium (Cozaar) 100 mg PO DAILY [facility] Last Admin: 08/06/18 09:50 Dose: 100 mg Metoprolol Tartrate (Lopressor) 25 mg PO BID [facility] Last Admin: 08/06/18 09:51 Dose: 25 mg Morphine Sulfate (Morphine) 1 mg IVP Q4H PRN PRN Reason: Pain, severe (8-10) Ondansetron HCl (Zofran Tab) 4 mg PO TID PRN PRN Reason: Nausea/Vomiting Last Admin: 07/31/18 17:01 Dose: 4 mg Oxycodone/Acetaminophen (Percocet 5/325 Mg Tab) 1 tab PO Q4H PRN PRN Reason: Pain, moderate (4-7) Stop: 08/09/18 10:42 Pantoprazole Sodium (Protonix Ec Tab) 40 mg PO 0600 [facility] Last Admin: 08/06/18 05:24 Dose: 40 mg Potassium Chloride (K-Dur 20 Meq Er Tab) 20 meq PO BRK [facility] Last Admin: 08/06/18 09:50 Dose: 20 meq Sitagliptin Phosphate (Januvia) 50 mg PO DAILY [facility] Last Admin: 08/06/18 09:50 Dose: 50 mg Zolpidem Tartrate (Ambien) 5 mg PO HS [facility]; Protocol Last Admin: 08/05/18 21:24 Dose: 5 mg - Labs Labs: 08/06/18 06:30 08/06/18 06:30 PT 12.9 SECONDS (9.4-12.5) H 07/31/18 06:00 INR 1.12 07/31/18 06:00 APTT 28.7 Seconds (25.1-36.5) 07/31/18 06:00 - Constitutional Appears: Chronically Ill - Head Exam Head Exam: NORMAL INSPECTION - Respiratory Exam Respiratory Exam: Decreased Breath Sounds - Cardiovascular Exam Cardiovascular Exam: +S1, +S2 - GI/Abdominal Exam GI & Abdominal Exam: Soft. absent: Tenderness Assessment and Plan - Assessment and Plan (Free Text) Plan: Assessment left foot ischemic changes with PVD, growing Klebsiella, Enterobacter, MSSA, S/P left BKA POD #6 S/P left lower extremity angioplasty DVT chronic CHF CAD S/P PCI Plan continue Zosyn for another day discussed with Dr. Chisholm previously
--- NOTE | 2018-08-07 14:12 | CP.PCM.PCO ---
Physician Communication Note - Physician Communication Note Physician Communication Note: medically cleared awaiting bed in [facility]
--- NOTE | 2018-08-07 15:17 | PN ---
DATE: 08/07/2018 SUBJECTIVE: The patient is without angina. She still has some discomfort in the left lower extremity. PHYSICAL EXAMINATION: VITAL SIGNS: Blood pressure 135/69, heart rate in the 70s. NECK: Negative JVD. LUNGS: Without rales. HEART: S1, S2. EXTREMITIES: Status post amputation of the left lower extremity. LABORATORY DATA: Hemoglobin is 8.2. Chemistries, BUN and creatinine 22 and 1.3. Glucose 136. IMPRESSION: 1. Stable angina. 2. Coronary artery disease. 3. History of percutaneous transluminal coronary angioplasty and stent. 4. Peripheral vascular disease. 5. History of pulmonary embolism. 6. Diabetes mellitus. 7. Status post amputation of left lower extremity. PLAN: Given these findings, the patient is being transferred to a subacute rehab today. Lei Rivera MD
--- NOTE | 2018-08-07 16:55 | CP.PCM.PN ---
<Elida Jones - Last Filed: 08/07/18 17:03> Subjective - Date & Time of Evaluation Date of Evaluation: 08/07/18 Time of Evaluation: 16:55 - Subjective Subjective: Podiatry Note for Dr. Mcintohs 72F patient, seen and evaluated at bedside for R foot painful, elongated nails. Patient resting in bed comfortably and in NAD. Patient's son present at bedside and states that his mom is still in a lot of pain. She denies any acute events overnight. Denies N/V/F/SOB/CP. Objective - Vital Signs/Intake and Output Vital Signs (last 24 hours): Temp Pulse Resp BP Pulse Ox 98.5 F 83 19 151/75 H 98 08/07/18 12:00 08/07/18 12:00 08/07/18 12:00 08/07/18 12:00 08/07/18 06:00 Intake and Output: 08/07/18 08/07/18 06:59 18:59 Intake Total 1520 Output Total 450 Balance 1070 - Medications Medications: Current Medications Amlodipine Besylate (Norvasc) 10 mg PO DAILY [facility] Last Admin: 08/07/18 11:23 Dose: 10 mg Apixaban (Eliquis) 2.5 mg PO BID [facility]; Protocol Last Admin: 08/07/18 11:29 Dose: 2.5 mg Aspirin (Aspirin Chewable) 81 mg PO DAILY [facility] Last Admin: 08/07/18 11:22 Dose: 81 mg Atorvastatin Calcium (Lipitor) 40 mg PO DIN [facility] Last Admin: 08/06/18 17:28 Dose: 40 mg Gabapentin (Neurontin) 300 mg PO TID [facility]; Protocol Last Admin: 08/07/18 15:59 Dose: 300 mg Piperacillin Sod/Tazobactam Sod (Zosyn 3.375 In Ns 100ml) 100 mls @ 25 mls/hr IVPB Q8 [facility]; Protocol Stop: 08/09/18 09:59 Last Admin: 08/07/18 15:51 Dose: 25 mls/hr Isosorbide Mononitrate (Imdur) 60 mg PO DAILY [facility] Last Admin: 08/07/18 11:22 Dose: 60 mg Losartan Potassium (Cozaar) 100 mg PO DAILY [facility] Last Admin: 08/07/18 11:34 Dose: 100 mg Metoprolol Tartrate (Lopressor) 25 mg PO BID [facility] Last Admin: 08/07/18 11:25 Dose: 25 mg Morphine Sulfate (Morphine) 1 mg IVP Q4H PRN PRN Reason: Pain, severe (8-10) Ondansetron HCl (Zofran Tab) 4 mg PO TID PRN PRN Reason: Nausea/Vomiting Last Admin: 07/31/18 17:01 Dose: 4 mg Oxycodone/Acetaminophen (Percocet 5/325 Mg Tab) 1 tab PO Q4H PRN PRN Reason: Pain, moderate (4-7) Stop: 08/09/18 10:42 Last Admin: 08/07/18 15:56 Dose: 1 tab Pantoprazole Sodium (Protonix Ec Tab) 40 mg PO 0600 [facility] Last Admin: 08/07/18 05:22 Dose: 40 mg Potassium Chloride (K-Dur 20 Meq Er Tab) 20 meq PO BRK [facility] Last Admin: 08/07/18 11:22 Dose: 20 meq Sitagliptin Phosphate (Januvia) 50 mg PO DAILY [facility] Last Admin: 08/07/18 11:22 Dose: 50 mg Zolpidem Tartrate (Ambien) 5 mg PO HS [facility]; Protocol Last Admin: 08/06/18 22:05 Dose: 5 mg - Labs Labs: 08/07/18 06:00 08/07/18 06:00 PT 12.9 SECONDS (9.4-12.5) H 07/31/18 06:00 INR 1.12 07/31/18 06:00 APTT 28.7 Seconds (25.1-36.5) 07/31/18 06:00 - Constitutional Appears: Well, Non-toxic, No Acute Distress - Head Exam Head Exam: ATRAUMATIC, NORMOCEPHALIC - Extremities Exam Additional comments: Left AKA, R lower extremity exam: Vascular: DP/PT faintly palpable, CFT < 3 seconds to all digits, Temperature gradient warm to warm on from proximal to distal, no edema noted. Neuro: Gross and protective sensation intact Derm: Elongated, dystrophic toenails x5, xerosis noted to plantar aspect of foot Ortho: Right AKA, no pain upon palpation of R foot - Neurological Exam Neurological Exam: Alert, Awake, Oriented x3 - Psychiatric Exam Psychiatric exam: Normal Affect, Normal Mood Assessment and Plan - Assessment and Plan (Free Text) Assessment: 72F patient, seen and evaluated at bedside for R foot elongated nails. Plan: Patient seen and evaluated with attending Dr. Mcintosh Afebrile R nails debrided with a large nail nipper to patient tolerance Rigid multipodus boot ordered for R lower extremity Podiatry to sign off at this time <Ute Mcintosh - Last Filed: 08/14/18 14:35> Objective - Vital Signs/Intake and Output Vital Signs (last 24 hours): Temp Pulse Resp BP Pulse Ox 97.1 F L 92 H 19 156/73 H 94 L 08/08/18 12:00 08/08/18 12:00 08/08/18 12:00 08/08/18 12:00 08/08/18 06:00 - Labs Labs: 08/07/18 06:00 08/07/18 06:00 PT 12.9 SECONDS (9.4-12.5) H 07/31/18 06:00 INR 1.12 07/31/18 06:00 APTT 28.7 Seconds (25.1-36.5) 07/31/18 06:00 Attending/Attestation - Attestation I have personally seen and examined this patient.: Yes I have fully participated in the care of the patient.: Yes I have reviewed all pertinent clinical information, including history, physical exam and plan: Yes
[2018-08-08] MEDS: Pantoprazole 40 mg EC Tab PO SCH (05:21)
[2018-08-08] MEDS: Piperacillin/Tazobact 3.375 gm 100 ML IVPB SCH (05:21)
[2018-08-08 06:39] VITALS: O2SAT 94
--- NOTE | 2018-08-08 08:01 | CP.PCM.PN ---
Subjective - Date & Time of Evaluation Date of Evaluation: 08/08/18 Time of Evaluation: 07:58 - Subjective Subjective: Serg Pal, Surgery Progress Note for Dr. Mansfield Patient was seen and examined at bedside this morning. Vital signs stable. Afebrile overnight. No adverse overnight events. Patient still has pain, unchanged, at the site of Left BKA. She denies fevers, chills, cp, sob, abdominal pain, nausea, vomiting. Objective - Vital Signs/Intake and Output Vital Signs (last 24 hours): Temp Pulse Resp BP Pulse Ox 98.1 F 82 18 143/70 94 L 08/08/18 06:00 08/08/18 06:00 08/08/18 06:00 08/08/18 06:00 08/08/18 06:00 Intake and Output: 08/08/18 08/08/18 06:59 18:59 Intake Total 200 Balance 200 - Medications Medications: Current Medications Amlodipine Besylate (Norvasc) 10 mg PO DAILY [facility] Last Admin: 08/07/18 11:23 Dose: 10 mg Apixaban (Eliquis) 2.5 mg PO BID [facility]; Protocol Last Admin: 08/07/18 18:18 Dose: 2.5 mg Aspirin (Aspirin Chewable) 81 mg PO DAILY [facility] Last Admin: 08/07/18 11:22 Dose: 81 mg Atorvastatin Calcium (Lipitor) 40 mg PO DIN [facility] Last Admin: 08/07/18 18:18 Dose: 40 mg Gabapentin (Neurontin) 300 mg PO TID [facility]; Protocol Last Admin: 08/07/18 18:17 Dose: 300 mg Piperacillin Sod/Tazobactam Sod (Zosyn 3.375 In Ns 100ml) 100 mls @ 25 mls/hr IVPB Q8 [facility]; Protocol Stop: 08/09/18 09:59 Last Admin: 08/08/18 05:21 Dose: 25 mls/hr Isosorbide Mononitrate (Imdur) 60 mg PO DAILY [facility] Last Admin: 08/07/18 11:22 Dose: 60 mg Losartan Potassium (Cozaar) 100 mg PO DAILY [facility] Last Admin: 08/07/18 11:34 Dose: 100 mg Metoprolol Tartrate (Lopressor) 25 mg PO BID [facility] Last Admin: 08/07/18 18:18 Dose: 25 mg Morphine Sulfate (Morphine) 1 mg IVP Q4H PRN PRN Reason: Pain, severe (8-10) Ondansetron HCl (Zofran Tab) 4 mg PO TID PRN PRN Reason: Nausea/Vomiting Last Admin: 07/31/18 17:01 Dose: 4 mg Oxycodone/Acetaminophen (Percocet 5/325 Mg Tab) 1 tab PO Q4H PRN PRN Reason: Pain, moderate (4-7) Stop: 08/09/18 10:42 Last Admin: 08/07/18 15:56 Dose: 1 tab Pantoprazole Sodium (Protonix Ec Tab) 40 mg PO 0600 [facility] Last Admin: 08/08/18 05:21 Dose: 40 mg Potassium Chloride (K-Dur 20 Meq Er Tab) 20 meq PO BRK [facility] Last Admin: 08/07/18 11:22 Dose: 20 meq Sitagliptin Phosphate (Januvia) 50 mg PO DAILY [facility] Last Admin: 08/07/18 11:22 Dose: 50 mg Zolpidem Tartrate (Ambien) 5 mg PO HS [facility]; Protocol Last Admin: 08/07/18 22:00 Dose: 5 mg - Labs Labs: 08/07/18 06:00 08/07/18 06:00 PT 12.9 SECONDS (9.4-12.5) H 07/31/18 06:00 INR 1.12 07/31/18 06:00 APTT 28.7 Seconds (25.1-36.5) 07/31/18 06:00 - Eye Exam Eye Exam: PERRL - ENT Exam ENT Exam: Mucous Membranes Moist - Respiratory Exam Respiratory Exam: Clear to Ausculation Bilateral, NORMAL BREATHING PATTERN. absent: Rales, Rhonchi, Wheezes - Cardiovascular Exam Cardiovascular Exam: RRR, +S1, +S2 - GI/Abdominal Exam GI & Abdominal Exam: Soft, Normal Bowel Sounds. absent: Distended, Guarding, Rigid, Tenderness, Rebound - Extremities Exam Additional comments: Left BKA. FELICITA bandage/dressing is in place. Skin edges are well approximated with jesus. Minimal sero-sanguinous drainage from medial incision. No erythema or signs of infection. - Neurological Exam Neurological Exam: Alert, Awake, Oriented x3 - Skin Skin Exam: Dry, Intact, Normal Color, Warm Assessment and Plan - Assessment and Plan (Free Text) Assessment: Patient is a 72 y/o female s/p left BKA POD 7 Plan: - Vital signs and labs reviewed. No fevers. Patient is cleared for discharge from surgery standpoint - f/u with Dr. Mansfield within 10 days of discharge as outpatient, including removal of surgical jesus - Apply Kerlix/FELICITA dressing to affected area - complete antibiotic course as per ID recs - c/w pain meds - recommend physical therapy Dispo: transfer to subacute rehab is planned for this morning. Case was discussed with Attending Physician, Dr. Mansfield.
--- NOTE | 2018-08-08 08:49 | PN ---
DATE: 08/08/2018 SUBJECTIVE: The patient appears very comfortable this morning. She is not short of breath at rest. PHYSICAL EXAMINATION: VITAL SIGNS: Temperature 98.1, pulse 82, respirations 18, blood pressure 143/70. Oxygen saturation on nasal cannula is 94% to 98%. HEENT: Normocephalic, atraumatic. No JVD. CARDIOVASCULAR: Systolic ejection murmur at the lower left sternal border. No S3 gallop. LUNGS: Improved breath sounds at the bases. No rhonchi. No wheezing. EXTREMITIES: The patient is status post left [id number] amputation. The right lower extremity shows no edema. There is no cyanosis or clubbing. The right calf is nontender to palpation. GASTROINTESTINAL: Abdomen is soft, nontender and nondistended. Bowel sounds are positive. SKIN: No acute rash. NEUROLOGIC: Exam limited at the present time. IMPRESSION: 1. Status post left [id number] amputation. 2. Left foot gangrene. 3. Severe peripheral vascular disease. 4. Mild pulmonary edema - resolved. 5. Anemia. PLAN: The patient appears very comfortable this morning. She is not short of breath at rest. She does state to feeling much, much better overall. I did discuss the case with the night nurse at length. The night nurse stated that the patient had a very good night. On physical exam, there is no significant bronchospasm noted. In addition, there is no significant alveolar-arterial gradient. Inputs by Cardiology and Infectious Disease are also noted. The patient remains on antibiotic therapy. Temperatures have resolved. Again, I did discuss the case with the night nurse at length. The patient is for transfer to a subacute rehab facility later this morning. Her clinical status has significantly improved. However, given the above, the future status/prognosis for this patient does remain guarded. I will discuss the above with Dr. Chisholm this morning. Bonifacio Ragland MD [facility]
--- NOTE | 2018-08-08 09:02 | DS ---
HISTORY OF PRESENT ILLNESS: We have been waiting for authorization for her to go to a subacute rehab and hoping today is the day. She is on Ambien, aspirin, Cozaar, Eliquis, Imdur, Januvia, potassium, Lipitor, Lopressor, Neurontin, Norvasc, Percocet, Protonix, Zofran and Zosyn. PHYSICAL EXAMINATION: VITAL SIGNS: 98.1 temperature, 82 pulse, 143/70 blood pressure 18 respiratory rate, 94% O2 sat nasal cannula. HEENT: Head: Atraumatic, normocephalic. GENERAL: She is alert and talking, comfortable, decrease in pain. She is moving her left leg better where the BKA is. She is on to the bathroom. HEART: Regular rate with decreased breath sounds but clear. ABDOMEN: Soft. EXTREMITIES: Left BKA. LABORATORY DATA: She has a 12.1 white count, 8.2 hemoglobin, 26.8 hematocrit with 254 platelets. She has a 141 sodium, potassium 3.9, BUN 22, creatinine 1.3. Last blood sugar was 120. Calcium is 8.2, total bili is 0.2, AST is 34, ALT is 35, alk phos 86, total protein is 5.8. She is being seen by Surgery, Cardiology. She is waiting for acceptance into a [facility] and hopefully that will be today. We will continue with aggressive treatment and care. She had a very bad left ischemic foot. She had a left BKA. Rick Chisholm DO MTDD
[2018-08-08] MEDS: Potassium Chloride 20 mEq ER Tab PO SCH (10:55)
[2018-08-08] MEDS: 0.125% Bupivacaine in 0.9% NS 400mL On Q pump IJ SCH (10:57)
[2018-08-08 12:20] VITALS: BP 156/73; PULSE 92; RESP 19; TEMP 97.1
--- NOTE | 2018-08-16 08:01 | PQF ---
PROVIDER RESPONSE TEXT: Acute systolic REVIEWER QUERY TEXT: CHF Acuity and Type Congestive Heart Failure is documented in the Medical Record. Please document the type and acuity (in cludes probable or suspected) Such as: Type: -- Systolic -- Diastolic -- Combined -- Other, please specify Acuity: -- Acute -- Chronic -- Acute on chronic -- Other, please specify Also please document the underlying cause of the CHF (includes probable or suspected) The patient's Clinical Indicators include: Query created by: Leigh Ann Arteaga on 08/04/2018 10:18 AM Electronically signed by: Lei Rivera MD 08/16/2018 7:59 AM
== END 2018-08-08 12:29 | DRG 239 ==
LOC: ED 14:05 → ERH 17:10 → 2RNO 21:50
PROVIDERS: ADMIT Family Medicine; ATTEND Family Medicine
PROC: 0JHP3VZ Insertion of Infusion Pump into Left Lower Leg Subcutaneous Tissue and Fascia, Percutaneous Approach (ICD-10-PCS; 2018-08-01)
PROC: 3E013BZ Introduction of Anesthetic Agent into Subcutaneous Tissue, Percutaneous Approach (ICD-10-PCS; 2018-08-01)
PROC: 0Y6J0Z1 Detachment at Left Lower Leg, High, Open Approach (ICD-10-PCS; principal; 2018-08-01 07:30)
PROC: 0HBRXZZ Excision of Toe Nail, External Approach (ICD-10-PCS; 2018-08-07)
DX: E11.52 Type 2 diabetes mellitus with diabetic peripheral angiopathy with gangrene (principal); I50.21 Acute systolic (congestive) heart failure; L03.116 Cellulitis of left lower limb; I13.0 Hypertensive heart and chronic kidney disease with heart failure and stage 1 through stage 4 chronic kidney disease, or unspecified chronic kidney disease; E11.65 Type 2 diabetes mellitus with hyperglycemia; E11.22 Type 2 diabetes mellitus with diabetic chronic kidney disease; N18.9 Chronic kidney disease, unspecified; E83.42 Hypomagnesemia; D64.9 Anemia, unspecified; E78.00 Pure hypercholesterolemia, unspecified; I25.118 Atherosclerotic heart disease of native coronary artery with other forms of angina pectoris; I25.5 Ischemic cardiomyopathy; E78.5 Hyperlipidemia, unspecified; L60.3 Nail dystrophy; B95.61 Methicillin susceptible Staphylococcus aureus infection as the cause of diseases classified elsewhere; B96.1 Klebsiella pneumoniae [K. pneumoniae] as the cause of diseases classified elsewhere; B96.89 Other specified bacterial agents as the cause of diseases classified elsewhere; Z87.891 Personal history of nicotine dependence; Z95.5 Presence of coronary angioplasty implant and graft; Z98.62 Peripheral vascular angioplasty status; Z86.718 Personal history of other venous thrombosis and embolism; Z86.711 Personal history of pulmonary embolism; Z79.01 Long term (current) use of anticoagulants; Z79.84 Long term (current) use of oral hypoglycemic drugs

== ENCOUNTER 2019-01-08 15:53 | Inpatient (IN) | payer MEDICARE, OTHER ==
[2019-01-08 16:10] VITALS: BMI 22.6
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
[2019-01-08 17:14] LABS: ALBUMIN 3.5 g/dL (3.0-4.8); CALCIUM 9.3 mg/dL (8.4-10.5)
[2019-01-08 17:16] LABS: BASO # 0.05 K/mm3 (0.0-2.0); BASO % 0.5 % (0.0-3.0); EOS # 0.3 (0.0-0.7); EOS % 2.7 % (1.5-5.0); HEMOGLOBIN 9.7 g/dL (12.0-16.0); LYMPH # 2.7 (1.2-3.4); LYMPH % 29.1 % (22.0-35.0); MEAN CELL VOLUME 79.4 fl (80.0-105.0); MEAN CORPUSCULAR HEMOGLOBIN 24.9 pg (25.0-35.0); MEAN CORPUSCULAR HGB CONC 31.4 g/dl (31.0-37.0); MEAN PLATELET VOLUME 10.4 fl (7.0-11.0); MONO # 0.6 (0.1-0.6); MONO % 6.1 % (1.0-6.0); RBC 3.89 10^6/uL (3.5-6.1); RED CELL DISTRIBUTION WIDTH 13.4 % (11.5-14.5); WHITE BLOOD COUNT 9.3 10^3/uL (4.5-11.0)
[2019-01-08 17:18] LABS: INR 1.29; PARTIAL THROMBOPLASTIN TIME 23.1 Seconds (26.9-38.3); PROTHROMBIN TIME 14.3 SECONDS (9.4-12.5)
[2019-01-08] MEDS ORDERED: Piperacill/Tazo 4.5gm in NS 4.5 GM/100 ML BAG IVPB STA (17:33)
[2019-01-08] MEDS ORDERED: Vancomycin 1gm in NS 250ml 1 GM/250 ML BAG IVPB STA (17:33)
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
--- NOTE | 2019-01-09 00:56 | CON ---
DATE OF CONSULTATION: 01/08/2019 The patient is in the emergency room at this time. The patient is seen. The patient's son is at the bedside, who gives most of the history. CHIEF COMPLAINT: An infection of the left stump times several days. HISTORY OF PRESENT ILLNESS: This is a 73-year-old female, known to me from previous admission with a history of diabetes mellitus, hypertension, coronary artery disease, kidney disease, DVT, congestive heart failure which is systolic with ejection fraction of 35%, pansensitive foot infection in the past with Enterobacter Klebsiella-sensitive staph, who had a left jruhr-qgd-ital amputation in 07/2018, also had cholecystectomy 5 years ago, had cardiac catheterization with LAD and RCA stent placement, who also had a stent in the left leg, now presents with a left stump erythema and discharge. REVIEW OF SYSTEMS: Reveals the patient has no fevers, no chills, no chest pain, no abdominal pain, diarrhea, or constipation. Review of systems reveals a 12-point review of systems performed. PAST MEDICAL HISTORY: Significant for hypertension, diabetes, coronary artery disease, kidney disease, DVT, and systolic congestive heart failure. PAST SURGICAL HISTORY: Significant for cardiac catheterization with LAD and RCA, cardiac stent placement. The patient also had a cholecystectomy 5 years ago and a left ifeye-mdl-fipa amputation in 07/2018. The patient has had a left leg stent placement. ALLERGIES: THE PATIENT IS ALLERGIC TO HYDROMORPHONE. MEDICATIONS: Medications at home include the patient to be reviewed. PHYSICAL EXAMINATION: VITAL SIGNS: Temperature is 98, blood pressure is 140/80, respiratory rate of 18, heart rate of 81. HEENT: Examination of HEENT is unremarkable. NECK: Supple. LUNGS: Have decreased breath sounds. HEART: Normal S1, S2. ABDOMEN: Soft, nontender. EXTREMITIES: Examination of stump reveals mild erythema and discharge. LABORATORY DATA: Laboratory examination reveals a white count of 9.3, hemoglobin of 9, and platelets of 266. Coagulation is noted. BUN of 38, creatinine of 1.1, alk phos is 130. ASSESSMENT AND PLAIN: A 73-year-old female with; 1. Left stump cellulitis with renal disease in a patient with diabetes, hypertension, coronary artery disease, and deep venous thrombosis, and systolic congestive heart failure. We will start the patient on Teflaro and pending culture results, and we will follow closely with you. Order a sed rate, C-reactive protein, wound culture, blood cultures, and we should have imaging to rule out underlying osteomyelitis and vascular evaluation regarding the blood supply. Dakota Stewart MD
[2019-01-09 09:06] VITALS: RESP 18
[2019-01-09] MEDS: Sodium Chloride 0.45% 1,000 ML IV SCH (10:38)
--- NOTE | 2019-01-09 11:48 | CP.PCM.PN ---
Subjective - Date & Time of Evaluation Date of Evaluation: 01/09/19 Time of Evaluation: 06:45 - Subjective Subjective: General Surgery Dr. Mansfield Pt seen and examined @bedside. No acute events overnight. Pt has no complaints this AM. denies F/C, N/C, leg pain. Objective - Vital Signs/Intake and Output Vital Signs (last 24 hours): Temp Pulse Resp BP Pulse Ox 97.3 F L 88 18 153/75 H 95 01/09/19 06:00 01/09/19 10:45 01/09/19 06:00 01/09/19 10:45 01/09/19 06:00 Intake and Output: 01/09/19 01/09/19 06:59 18:59 Intake Total 350 Balance 350 - Medications Medications: Current Medications Alprazolam (Xanax) 0.25 mg PO BID PRN; Protocol PRN Reason: Anxiety Stop: 01/16/19 09:25 Amlodipine Besylate (Norvasc) 5 mg PO DAILY [facility] Last Admin: 01/09/19 10:38 Dose: 5 mg Apixaban (Eliquis) 2.5 mg PO BID [facility]; Protocol Last Admin: 01/09/19 10:37 Dose: 2.5 mg Aspirin (Aspirin Chewable) 81 mg PO DAILY [facility] Last Admin: 01/09/19 10:37 Dose: 81 mg Atorvastatin Calcium (Lipitor) 40 mg PO DIN [facility] Gabapentin (Neurontin) 300 mg PO TID [facility]; Protocol Last Admin: 01/09/19 10:37 Dose: 300 mg Ceftaroline Fosamil 400 mg/ (Sodium Chloride) 100 mls @ 100 mls/hr IVPB Q12 [facility]; Protocol Stop: 01/17/19 19:16 Last Admin: 01/09/19 09:24 Dose: 100 mls/hr Sodium Chloride (Sodium Chloride 0.45%) 1,000 mls @ 40 mls/hr IV .Q24H [facility] Last Admin: 01/09/19 10:38 Dose: 40 mls/hr Isosorbide Mononitrate (Imdur) 60 mg PO DAILY [facility] Last Admin: 01/09/19 10:37 Dose: 60 mg Losartan Potassium (Cozaar) 100 mg PO DAILY [facility] Last Admin: 01/09/19 10:37 Dose: 100 mg Metformin HCl (Glucophage) 750 mg PO DAILY [facility] Last Admin: 01/09/19 10:37 Dose: 750 mg Metoprolol Tartrate (Lopressor) 25 mg PO BID [facility] Last Admin: 01/09/19 10:37 Dose: 25 mg Ondansetron HCl (Zofran Tab) 4 mg PO TID PRN PRN Reason: Nausea/Vomiting Tramadol HCl (Ultram) 50 mg PO Q8H PRN PRN Reason: Pain, severe (8-10) Zolpidem Tartrate (Ambien) 5 mg PO HS [facility]; Protocol - Labs Labs: 01/08/19 17:01 01/08/19 17:01 PT 14.3 SECONDS (9.4-12.5) H 01/08/19 17: INR 1.29 01/08/19 17: APTT 23.1 Seconds (26.9-38.3) L 01/08/19 17:01 - Constitutional Appears: Non-toxic, No Acute Distress - Eye Exam Eye Exam: Normal appearance - ENT Exam ENT Exam: Mucous Membranes Moist - Respiratory Exam Respiratory Exam: NORMAL BREATHING PATTERN. absent: Accessory Muscle Use, Respiratory Distress - Cardiovascular Exam Cardiovascular Exam: absent: Bradycardia, Tachycardia - GI/Abdominal Exam GI & Abdominal Exam: Soft. absent: Distended, Tenderness - Extremities Exam Additional comments: Left BKA stump w/ small superficial skin tears at medial and lateral aspects of incision no surrounding erythema, induration, fluctuance. - Neurological Exam Neurological Exam: Alert, Awake, Oriented x3 - Psychiatric Exam Psychiatric exam: Normal Affect, Normal Mood - Skin Skin Exam: Dry, Warm Assessment and Plan - Assessment and Plan (Free Text) Assessment: 73 y/o F w/ L BKA wound Plan: - daily dressing changes - xeroform, 4x4, krylex wrap - cont PT/OT - No surgical intervention at this time Pt discussed w/ Dr. Donal Mast PGY3
--- NOTE | 2019-01-09 20:04 | HP ---
DATE OF EXAM: 01/09/2019 HISTORY OF PRESENT ILLNESS: I did a house call on her yesterday. She has a worsening stump ulcer with pus coming from it. This is worse than it was a month ago. Also visiting nurses and Surgery has not seen her. There are 2 jesus still left in her stump. She is on Ambien, aspirin, ceftaroline IV by Infectious Disease, Cozaar, Eliquis, Glucophage, Imdur, Lipitor, Lopressor, Neurontin, Norvasc, IV fluids, Ultram, Xanax and Zofran. I discussed this at length with the son when I did the house call and he was very upset that there was oozing going into the bandages and she was sent to the emergency room. She is a 73-year-old white female with a history of diabetes, hypertension, pulmonary embolus, CAD, PVD, left-sided BKA due to peripheral vascular disease. She has a nonhealing left-sided BKA surgical wound. We tried to take care of her at home for many months. It looked worse with more pus and blood coming from it. It was soaking through the bandage. She was sent to the emergency room. She has heart failure, hypertension, kidney injury, diabetes, transfusions in the past, cellulitis in the past, weakness. She had a cholecystectomy, a left BKA. The son who takes care of her is quite nervous and upset. FAMILY HISTORY: Unknown family history. SOCIAL HISTORY: No smoker. No drinking. No drugs. ALLERGIES TO DILAUDID. MEDICATIONS: She is on Neurontin, Lopressor, Ambien, Glucophage. She has got numerous antibiotics at home. REVIEW OF SYSTEMS: No fevers. No chills. No shortness of breath. No cough. No chest pain or palpitations. No abdominal pain, nausea, vomiting, constipation, or diarrhea. No problems urinating. She has a left-sided BKA nonhealing surgical wound for months, now to me it has gotten worsen and bigger with oozing and blood and pus. PHYSICAL EXAMINATION VITAL SIGNS: She has a 98.9 temperature, 81 pulse, 18 respiratory rate, 145/80 blood pressure, and 98% O2 sat. GENERAL: She has failed outpatient wound care, on antibiotics. She is well-appearing, nontoxic, comfortable. Alert and oriented x3. HEENT: Head; atraumatic, normocephalic. Extraocular muscles are intact. Pupils equally react to light and accommodation. Throat is moist. NECK: Supple. HEART: Regular rate. Normal S1, S2. LUNGS: Decreased breath sounds but clear to auscultation. ABDOMEN: Soft, nontender. Positive bowel sounds. No guarding, no rebound, no CVA tenderness. EXTREMITIES: The left BKA has got oozing with skin breakdown and jesus are also noted in the wound. There are pus and blood coming from the wound ulcer. NEUROLOGIC: GCS is 15. Cranial nerves II through XII grossly intact. Alert and oriented x3. ASSESSMENT AND PLAN: She is here with a nonhealing surgical wound from a left below-knee amputation, who is a diabetic with failed outpatient treatment with antibiotics. I will call in Infectious Disease and Surgery. We have got to make sure there is no osteomyelitis. We will continue with good wound care as per Surgery. She has a nonhealing left below-knee amputation surgical wound with pus and blood, failed outpatient treatment with antibiotics. Rick Chisholm DO
--- NOTE | 2019-01-09 23:50 | PN ---
DATE: 01/09/2019 SUBJECTIVE: The patient is seen in bed, in no acute distress, nontoxic. PHYSICAL EXAMINATION: VITAL SIGNS: Temperature is 98, blood pressure is 113/60, respiratory rate of 18, heart rate of 88. HEENT: Unremarkable. NECK: Supple. LUNGS: Decreased breath sounds. HEART: Normal S1, S2. ABDOMEN: Soft. LABORATORY DATA: Laboratory examination is noted. Laboratory examination reveals a white count of 9.3 and hemoglobin of 9. Chemistries reveal a BUN of 38, creatinine of 1.1. Microbiology reveals leg culture is pending, blood cultures are negative. Dr. Elida Mast's note is reviewed. ASSESSMENT AND PLAN: This is a 73-year-old female with left stump cellulitis which is much improved, renal disease, diabetes, and hypertension. Awaiting for wound culture. Currently on Teflaro. Dakota Stewart MD
[2019-01-10 07:20] LABS: MEAN CELL VOLUME 79.7 fl (80.0-105.0); MEAN CORPUSCULAR HEMOGLOBIN 25.1 pg (25.0-35.0); MEAN CORPUSCULAR HGB CONC 31.4 g/dl (31.0-37.0); MEAN PLATELET VOLUME 10.2 fl (7.0-11.0); RBC 3.99 10^6/uL (3.5-6.1); RED CELL DISTRIBUTION WIDTH 13.5 % (11.5-14.5); WHITE BLOOD COUNT 8.7 10^3/uL (4.5-11.0)
[2019-01-10 08:08] LABS: ALBUMIN 3.1 g/dL (3.0-4.8); CALCIUM 8.8 mg/dL (8.4-10.5)
[2019-01-10] MEDS: Sodium Chloride 0.45% 1,000 ML IV SCH (09:44)
--- NOTE | 2019-01-10 10:16 | CP.PCM.PN ---
Subjective - Date & Time of Evaluation Date of Evaluation: 01/10/19 Time of Evaluation: 10:11 - Subjective Subjective: SURGERY NOTE FOR DR. RENTERIA 73Fseen and examined at bedside. Patient resting comfortable. State left BKA stump pain is improving. denies fevers overnight. Objective - Vital Signs/Intake and Output Vital Signs (last 24 hours): Temp Pulse Resp BP Pulse Ox 98 F 85 18 168/70 H 99 01/10/19 06:00 01/10/19 09:45 01/10/19 06:00 01/10/19 09:45 01/10/19 06:00 Intake and Output: 01/10/19 01/10/19 06:59 18:59 Intake Total 1470 Balance 1470 - Medications Medications: Current Medications Alprazolam (Xanax) 0.25 mg PO BID PRN; Protocol PRN Reason: Anxiety Stop: 01/16/19 09:25 Amlodipine Besylate (Norvasc) 5 mg PO DAILY [facility] Last Admin: 01/10/19 09:45 Dose: 5 mg Apixaban (Eliquis) 2.5 mg PO BID [facility]; Protocol Last Admin: 01/10/19 09:45 Dose: 2.5 mg Aspirin (Aspirin Chewable) 81 mg PO DAILY [facility] Last Admin: 01/10/19 09:44 Dose: 81 mg Atorvastatin Calcium (Lipitor) 40 mg PO DIN [facility] Last Admin: 01/09/19 17:16 Dose: 40 mg Gabapentin (Neurontin) 300 mg PO TID [facility]; Protocol Last Admin: 01/10/19 09:44 Dose: 300 mg Ceftaroline Fosamil 400 mg/ (Sodium Chloride) 100 mls @ 100 mls/hr IVPB Q12 [facility]; Protocol Stop: 01/17/19 19:16 Last Admin: 01/10/19 09:45 Dose: 100 mls/hr Sodium Chloride (Sodium Chloride 0.45%) 1,000 mls @ 40 mls/hr IV .Q24H [facility] Last Admin: 01/10/19 09:44 Dose: 40 mls/hr Isosorbide Mononitrate (Imdur) 60 mg PO DAILY [facility] Last Admin: 01/10/19 09:44 Dose: 60 mg Losartan Potassium (Cozaar) 100 mg PO DAILY [facility] Last Admin: 01/10/19 09:45 Dose: 100 mg Metformin HCl (Glucophage) 750 mg PO DAILY [facility] Last Admin: 01/10/19 09:44 Dose: 750 mg Metoprolol Tartrate (Lopressor) 25 mg PO BID [facility] Last Admin: 01/10/19 09:45 Dose: 25 mg Ondansetron HCl (Zofran Tab) 4 mg PO TID PRN PRN Reason: Nausea/Vomiting Tramadol HCl (Ultram) 50 mg PO Q8H PRN PRN Reason: Pain, severe (8-10) Zolpidem Tartrate (Ambien) 5 mg PO HS [facility]; Protocol Last Admin: 01/09/19 21:55 Dose: 5 mg - Labs Labs: 01/10/19 06:45 01/10/19 06:45 PT 14.3 SECONDS (9.4-12.5) H 01/08/19 17:01 INR 1.29 01/08/19 17:01 APTT 23.1 Seconds (26.9-38.3) L 01/08/19 17:01 - Constitutional Appears: Non-toxic, No Acute Distress - Respiratory Exam Respiratory Exam: Clear to Ausculation Bilateral, NORMAL BREATHING PATTERN - Cardiovascular Exam Cardiovascular Exam: REGULAR RHYTHM, +S1, +S2 - GI/Abdominal Exam GI & Abdominal Exam: Soft. absent: Firm, Guarding, Rigid, Tenderness, Rebound - Extremities Exam Additional comments: dressing on left BKA in place, CDI - Neurological Exam Neurological Exam: Alert, Awake Assessment and Plan - Assessment and Plan (Free Text) Assessment: 73F with left BKA stump wound, improving Plan: - continue local wound care - continue IV antibiotics per ID - Further recs per Dr. Donal Vidal, PGY3
--- NOTE | 2019-01-10 11:11 | PN ---
DATE: 01/10/2019 SUBJECTIVE: She is resting in bed. She had a persistent left stump wound status post surgery with oozing and non-healing ulcer with two jesus left in. Now she is on IV antibiotics, ceftaroline, Ambien, aspirin, Cozaar, Eliquis, Glucophage, Imdur, Lipitor, Lopressor, Neurontin, Norvasc, IV fluids, Ultram, Xanax, and Zofran. She is in a little bit of pain, but not bad. PHYSICAL EXAMINATION: VITAL SIGNS: 98 temperature, 80 pulse, 136/68 blood pressure, 18 respiratory rate, 99% O2 sat on room air. HEAD: Atraumatic, normocephalic. HEART: Regular rate. LUNGS: Decreased breath sounds, but clear. ABDOMEN: Soft. EXTREMITIES: Left stump is bandaged. LABORATORY DATA: She has 8.7 white count, 10 hemoglobin, 31.8 hematocrit with 216 platelets. Sodium 138, potassium 4.6, BUN is 33, creatinine is 1.1, better, GFR is 49, sugar is 122, calcium is 8.8. Total bili is 0.3, AST is 24, ALT is 32, alk phos 102, total protein 6.3. Gram stain is pending. ASSESSMENT AND PLAN: The wound is being seen by Surgery and by Infectious Disease. on intravenous antibiotics. Also get Wound Care to see her and hopefully, she will continue to improve. Tammy Padgett with persistent left stump wound status post surgery. Rick Chisholm DO MTDD
--- NOTE | 2019-01-10 14:32 | CP.PCM.PCO ---
Additional Comments - Additional Comments Additional Comments: Pt seen and examined at bedside. In no acute distress. She is currently being treated for L bka surgical wound. On IV Teflaro per ID recs, pending wound culture. Blood culture is negative to this date. Will continue to follow.
[2019-01-10 17:04] VITALS: O2SAT 98
--- NOTE | 2019-01-10 23:49 | PN ---
DATE: 01/10/2019 SUBJECTIVE: The patient is in bed and seen earlier today in 573, bed 1. She is comfortable. No fevers. No chills. PHYSICAL EXAMINATION: VITAL SIGNS: Temperature is 98, blood pressure is 119/60, respiratory rate of 18. HEENT: Unremarkable. NECK: Supple. LUNGS: Have decreased breath sounds. HEART: Normal S1, S2. ABDOMEN: Soft. Examination of stump is much improved. LABORATORY DATA: Laboratory examination reveals the cultures are gram-positive cocci in pairs on the gram stain, but the culture is growing gram-negative iassatou. The blood cultures are negative. Currently, the patient is on Teflaro. Dr. Rick Chisholm's note is reviewed, and Efren Fine APN's note, communication report is reviewed. Dr. Mansfield's note is also reviewed. ASSESSMENT AND PLAN: A 73-year-old female seen earlier today in 573, bed 1 with renal disease, diabetes, and hypertension, and now, left amputation site infection is improving. We will be able to switch to oral antibiotics in the next 24 hours. The patient has hypertension, diabetes, anxiety, high cholesterol, congestive heart failure, cardiac arrhythmias, and renal disease. The patient at this time is within normal limits. Options for oral antibiotics will be oral doxycycline and oral Augmentin; doxycycline 100 mg orally twice daily and Augmentin 875 orally twice daily times 3-5 days. Dakota Stewart MD
[2019-01-11 07:19] LABS: HEMOGLOBIN 9.5 g/dL (12.0-16.0); MEAN CELL VOLUME 79.9 fl (80.0-105.0); MEAN CORPUSCULAR HEMOGLOBIN 25.5 pg (25.0-35.0); MEAN CORPUSCULAR HGB CONC 31.9 g/dl (31.0-37.0); RBC 3.73 10^6/uL (3.5-6.1); RED CELL DISTRIBUTION WIDTH 13.4 % (11.5-14.5); WHITE BLOOD COUNT 8.3 10^3/uL (4.5-11.0)
[2019-01-11 07:39] LABS: ALBUMIN 3.1 g/dL (3.0-4.8); ALT/SGPT 31 U/L (7-56); AST/SGOT 20 U/L (14-36); BLOOD UREA NITROGEN 28 mg/dL (7-21); CALCIUM 8.8 mg/dL (8.4-10.5); GFR NON-AFRICAN AMERICAN 54
[2019-01-11] MEDS ORDERED: Cefpodoxime (Vantin) 200 mg Tab PO SCH (11:28)
[2019-01-11] MEDS: Sodium Chloride 0.45% 1,000 ML IV SCH (12:43)
[2019-01-11 14:02] VITALS: BP 149/74; PULSE 72; TEMP 98.8
--- NOTE | 2019-01-11 15:12 | PN ---
DATE: 01/11/2019 SUBJECTIVE: The patient is in bed, in no acute distress, comfortable. PHYSICAL EXAMINATION: VITAL SIGNS: Temperature is 98, blood pressure is 130/70, respiratory rate of 18. HEENT: Unremarkable. NECK: Supple. LUNGS: Have decreased breath sounds. HEART: Normal S1 and S2. ABDOMEN: Soft. LABORATORY EXAMINATION: Reviewed. White count of 8.3. Sed rate is 60. Chemistries reveals a BUN of 28, creatinine of 1. Microbiology reveals there is pansensitive Klebsiella from the wound. ASSESSMENT AND PLAN: This is a 73-year-old female, who was seen earlier today with renal disease, hypertension, status post amputation, now with left amputation site cellulitis and ulcer in a patient with hypertension, diabetes, anxiety, high cholesterol, congestive heart failure, cardiac arrhythmias, and renal disease. We will discontinue the and switch to p.o. Vantin since the identification of organism being identified as Klebsiella at 200 mg p.o. b.i.d. x5 days. Dakota Stewart MD
--- NOTE | 2019-01-11 21:36 | DS ---
HISTORY OF PRESENT ILLNESS: She is going to be changed over from IV antibiotics to oral antibiotics, Augmentin 875 twice a day x8 days and also doxycycline 100 mg twice a day x8 days. She will be off the IV antibiotics. She will be on her regular medications. She did well. She was seen by Surgery. PHYSICAL EXAMINATION: VITAL SIGNS: She has 97.7 temp, 74 pulse, 131/68 blood pressure, 18 respiratory rate, and 90% O2 sat on room air. HEENT: Head is atraumatic and normocephalic. HEART: Regular rate. LUNGS: Decreased breath sounds. ABDOMEN: Soft. EXTREMITIES: She has a left stump, which is bandaged. LABORATORY DATA: She has sodium 141, potassium 4.5, BUN 28, creatinine 1, GFR is 64, sugar is 105, calcium is 8.8, and total bili is 0.3. AST is 20, ALT is 31, alk phos 97, and total protein 6.2. A 8.3 white count, 9.5 hemoglobin, 29.8 hematocrit with 199 platelets. ASSESSMENT AND PLAN: She was seen by Surgery and Infectious Disease. I feel the stump also is improving. care outpatient nursing. I will see her on house calls, hopefully Surgery can follow her on the house call too. Rick Chisholm DO MTDD
== END 2019-01-11 17:03 | disposition home health service (06) | DRG 565 ==
LOC: ED 15:53 → ERH 17:33 → 5RSO 19:54
PROVIDERS: ADMIT Family Medicine; ATTEND Family Medicine
DX: T87.44 Infection of amputation stump, left lower extremity (principal); L03.116 Cellulitis of left lower limb; I13.0 Hypertensive heart and chronic kidney disease with heart failure and stage 1 through stage 4 chronic kidney disease, or unspecified chronic kidney disease; I50.22 Chronic systolic (congestive) heart failure; B96.1 Klebsiella pneumoniae [K. pneumoniae] as the cause of diseases classified elsewhere; E11.52 Type 2 diabetes mellitus with diabetic peripheral angiopathy with gangrene; I25.10 Atherosclerotic heart disease of native coronary artery without angina pectoris; N18.9 Chronic kidney disease, unspecified; E11.22 Type 2 diabetes mellitus with diabetic chronic kidney disease; E78.00 Pure hypercholesterolemia, unspecified; F41.9 Anxiety disorder, unspecified; Y83.5 Amputation of limb(s) as the cause of abnormal reaction of the patient, or of later complication, without mention of misadventure at the time of the procedure; Z89.512 Acquired absence of left leg below knee; Z79.84 Long term (current) use of oral hypoglycemic drugs; Z86.711 Personal history of pulmonary embolism; Z88.5 Allergy status to narcotic agent; Z95.5 Presence of coronary angioplasty implant and graft